=== PATIENT | male | born 1960 | race Caucasian/White ===

== ENCOUNTER 2020-03-18 13:50 | Emergency (ER) | payer OTHER ==
[~2020-03-18] VITALS: Ht 190.5 cm; Wt 99.8 kg
--- OUTSIDE RECORDS SUMMARY | ~2020-03-18 | XMS | Encounter Summary ---
Demographics + + + | Address | [address] | | | [place] [address] | + + + | Home Phone | | + + + | Preferred Language | Unknown | + + + | Marital Status | | + + + | Faith Affiliation | Unknown | + + + | Race | White | + + + | Ethnic Group | Not or | + + + Author + + + | Author | [facility] | | | and [place] | + + + | Organization | [facility] | | | and [place] | + + + | Address | Unknown | + + + | Phone | Unavailable | + + + Support + + +---------+ + | Name | Relationship | Address | Phone | + + +---------+ + | Iman Palafox | ECON | Unknown | | + + +---------+ + Care Team Providers + +------+ + | Care Zigzagger Name | Role | Phone | + +------+ + | Gary Gomez MD | PCP | | + +------+ + Reason for Visit + + + | Reason | Comments | + + + | Cardiac Rehab | | + + + Auth/Cert +--------+--------+ + + + + | Status | Reason | Specialty | Diagnoses / | Referred By | Referred To | | | | | Procedures | Contact | Contact | +--------+--------+ + + + + | | | | | | | +--------+--------+ + + + + Encounter Details +--------+---------+ + + + | Date | Type | Department | Care Team | Description | +--------+---------+ + + + | 03/11/ | Office | [facility] | Latonia Olson, | ST elevation | | 2017 | Visit | [facility] | MD [address] | myocardial | | | | REHABILITATION [address] | [place] | infarction involving | | | | [address] [place] | [address] | right coronary | | | | [place] [address] | | artery (HCC) | | | | [phone] | | | +--------+---------+ + + + Social History + + + +--------+------+ | Tobacco Use | Types | Packs/Day | Years | Date | | | | | Used | | + + + +--------+------+ | Current Some Day | Cigarettes | 0.5 | 10 | | | Smoker | | | | | + + + +--------+------+ + +---+---+---+ | Smokeless Tobacco: | | | | | Never Used | | | | + +---+---+---+ + + | Comments: Trying to quit | + + + + +---------+ + | Alcohol Use | Drinks/Week | oz/Week | Comments | + + +---------+ + | Yes | 0 Standard drinks | 0.0 | rarely | | | or equivalent | | | + + +---------+ + + + + | Sex Assigned at | Date Recorded | | | | + + + | Not on file | | + + + documented as of this encounter Functional Status + + + + | Functional Status | Response | Date of Assessment | + + + + | Are you deaf or do you have serious | No | 11/05/2016 | | difficulty hearing? | | | + + + + | Are you blind or do you have serious | No | 11/05/2016 | | difficulty seeing, even when wearing | | | | glasses? | | | + + + + | Do you have serious difficulty walking or | No | 11/05/2016 | | climbing stairs? (5 years old or older) | | | + + + + | Do you have difficulty dressing or bathing? | No | 11/05/2016 | | (5 years old or older) | | | + + + + | Because of a physical, mental, or emotional | No | 11/05/2016 | | condition, do you have difficulty doing | | | | errands alone such as visiting a doctor's | | | | office or shopping? [15 years old or | | | | older)] | | | + + + + + + + + | Cognitive Status | Response | Date of Assessment | + + + + | Because of a physical, mental, or emotional | No | 11/05/2016 | | condition, do you have serious difficulty | | | | concentrating, remembering, or making | | | | decisions? (5 years old or older) | | | + + + + documented as of this encounter Progress Notes Pricilla Zaldivar RN - 03/11/2017 10:00 AM PDT [facility] [address] [facility] [address] Cardiac Rehab Date: 03/11/2017 Patient Information Patient Name: Jose Raul Palafox Date of : 1960 Age: 56 y.o. Encounter Diagnoses Code Name Primary? 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 Yes Any Changes in Medications? No 01/19/17 gabapentin. Any Problems to Report? No Pain Level: 03/03 leg, T-spine, neck Home exercise: Limited walking due to pain. Denies any adverse symptoms during exercise. No anginal symptoms. Sinus rhythm without ectopy-no ST segment changes. SBP with an adequate rise during exertio n. SpO2 96% on room air. Compliant with medications, Quit Smoking!. Continue monitored exercise. Any abnormal vital signs or rhythm strips will be reported in progress note. Please see vital signs record, exercise record and rhythm strip scanned into media section every . Appointment duration: 60 min Electronically signed by: Pricilla Zaldivar RN, 03/11/2017 11:47 Patient Name: Jose Rual Palafox/: 1960/ signed by Pricilla Zaldivar RN at 03/11/2017 11:55 AM PDTdocumented in this encounter Plan of Treatment + + +--------+ + + | Name | Type | Priori | Associated Diagnoses | Order Schedule | | | | ty | | | + + +--------+ + + | * [facility] | Outpatient | Routin | ST elevation | Ordered: 11/05/2016 | | - AMB Referral | Referral | e | myocardial | | | | | | infarction involving | | | | | | right coronary | | | | | | artery (HCC) | | + + +--------+ + + documented as of this encounter Visit Diagnoses + + | Diagnosis | + + | ST elevation myocardial infarction involving right coronary artery (HCC) Acute | | myocardial infarction of inferoposterior wall, initial episode of care | + + documented in this encounter"
--- OUTSIDE RECORDS SUMMARY | ~2020-03-18 | XMS | Encounter Summary ---
Demographics + + + | Address | [address] | | | [place] [address] | + + + | Home Phone | | + + + | Preferred Language | Unknown | + + + | Marital Status | | + + + | Latter Day Affiliation | Unknown | + + + | Race | White | + + + | Ethnic Group | Not or | + + + Author + + + | Author | [facility] | | | and [place] | + + + | Organization | [facility] | | | and [...] Team Providers + +------+ + | Care Electronics Instructor Name | Role | Phone | + +------+ + | Gary Gomez MD | PCP | | + +------+ + Reason for Visit Auth/Cert +--------+--------+ + + + + | Status | Reason | Specialty | Diagnoses / | Referred By | Referred To | | | | | Procedures | Contact | Contact | +--------+--------+ + + + + | | | | | | | +--------+--------+ + + + + Encounter Details +--------+ + + + + | Date | Type | Department | Care Team | Description | +--------+ + + + + | 11/24/ | Hospital | [facility] | Denton Barakat | Spinal stenosis, | | 2019 | Encounter | MED CTR XRAY [address] | MD Olivier [address] | unspecified spinal | | | | [place] | [place] [address] [address] | region | | | | [place] [address] | [place] [address] | | | | | [phone] | [phone] | | | | | | | | +--------+ + + + + Social History + + [...] + + documented as of this encounter Medications at Time of Discharge + + + +---------+ + + | Medication | Sig | Dispensed | Refills | Start | End Date | | | | | | Date | | + + + +---------+ + + | atorvaSTATin | Take 1 tablet by | 30 | 11 | 11/06/19 | | | (LIPITOR) 80 MG | mouth nightly. Do | tablet | | 17 | | | tablet | not take for a week | | | | | + + + +---------+ + + | famotidine | Take 20 mg by mouth | | 0 | | | | (PEPCID) 20 mg | 2 times daily. | | | | | | tablet | | | | | | + + + +---------+ + + | | Inhale 1 puff into | | 0 | | | | fluticasone-salmeter | the lungs Twice | | | | | | ol (ADVAIR) 500-50 | Daily. | | | | | | mcg/puff diskus | | | | | | | inhaler | | | | | | + + + +---------+ + + | ipratropium | Inhale 2 puffs into | | 0 | | | | (ATROVENT HFA) 17 | the lungs 4 times | | | | | | mcg/puff inhaler | daily. | | | | | + + + +---------+ + + | levalbuterol | Inhale 1 puff into | | 0 | | | | (XOPENEX HFA) 45 | the lungs EVERY 4 TO | | | | | | mcg/puff inhaler | 6 HOURS NEEDED | | | | | | | for Wheezing. | | | | | + + + +---------+ + + | levalbuterol | Take 1 ampule by | | 0 | | | | (XOPENEX) 1.25 mg/3 | nebulization 3 times | | | | | | mL nebulizer | daily. | | | | | | solution | | | | | | + + + +---------+ + + | levothyroxine | Take 175 mcg by | | 0 | | | | (SYNTHROID, | mouth every morning | | | | | | LEVOTHROID) 175 MCG | (before breakfast). | | | | | | tablet | | | | | | + + + +---------+ + + | montelukast | Take 10 mg by mouth | | 0 | | | | (SINGULAIR) 10 mg | Daily. | | | | | | tablet | | | | | | + + + +---------+ + + | nitroglycerin | Place 1 tablet under | 25 | 1 | 11/06/19 | | | (NITROSTAT) 0.4 mg | the tongue every 5 | tablet | | 17 | | | SL tablet | minutes as needed | | | | | | | for Chest pain. | | | | | + + + +---------+ + + | omeprazole | Take 20 mg by mouth | | 0 | | | | (PRILOSEC) 20 mg | 2 times daily. | | | | | | capsule | | | | | | + + + +---------+ + + | oxygen | Inhale 2 L into the | | 0 | | | | | lungs continuous. | | | | | + + + +---------+ + + | prasugrel | Take 1 tablet by | 90 | 3 | 01/12/20 | | | (EFFIENT) 10 mg TABS | mouth Daily. | tablet | | 17 | | + + + +---------+ + + | rOPINIRole | Take 0.5 mg by mouth | | 0 | | | | (REQUIP) 0.5 MG | nightly as needed | | | | | | tablet | (restless leg). | | | | | + + + +---------+ + + | triamcinolone | Apply topically 2 | | 0 | | | | (KENALOG) 0.1% cream | times daily. | | | | | + + + +---------+ + + | aspirin 81 MG EC | Take 1 tablet by | 30 | 0 | 11/06/19 | | | tablet | mouth Daily. | tablet | | 17 | 0 | + + + +---------+ + + | buPROPion | Take 1 tablet by | | 0 | 11/25/19 | | | (WELLBUTRIN SR) 150 | mouth 2 times daily. | | | 19 | 0 | | mg 12 hr tablet | | | | | | + + + +---------+ + + | busPIRone (BUSPAR) | Take 15 mg by mouth | | 0 | | | | 15 mg tablet | 2 times daily. | | | | 0 | + + + +---------+ + + | calcium carbonate | Take 1 tablet by | | 0 | | | | (TUMS) 500 mg | mouth Daily as | | | | 9 | | chewable tablet | needed for | | | | | | | Heartburn. | | | | | + + + +---------+ + + | cyclobenzaprine | Take 10 mg by mouth | | 0 | 11/07/19 | | | (FLEXERIL) 10 mg | Twice daily as | | | 19 | 9 | | tablet | needed. | | | | | + + + +---------+ + + | cyclobenzaprine | Take 10 mg by mouth | | 0 | | | | (FLEXERIL) 10 mg | Twice daily as | | | | 9 | | tablet | needed for Muscle | | | | | | | spasms. | | | | | + + + +---------+ + + | gabapentin | Take 900 mg by mouth | | 0 | | | | (NEURONTIN) 300 mg | 3 times daily. | | | | 0 | | capsule | Three tablets three | | | | | | | times a day | | | | | + + + +---------+ + + | | Take 1-2 tablets by | | 0 | | | | HYDROcodone-acetamin | mouth 3 times daily | | | | 9 | | ophen (NORCO) 5-325 | as needed for Pain. | | | | | | mg per tablet | Max of 4 tabs daily | | | | | + + + +---------+ + + | metoprolol | Take 0.5 tablets by | | 0 | 12/25/19 | | | tartrate (LOPRESSOR) | mouth 2 times daily. | | | 17 | 9 | | 100 mg tablet | | | | | | + + + +---------+ + + | nicotine | Take 4 mg by mouth | | 0 | | | | (NICORETTE) 4 mg gum | as needed for | | | | 9 | | | Nicotine Craving. | | | | | | | Chew and tuck 1 | | | | | | | piece every 1-2 | | | | | | | hours for weeks 1-6 | | | | | | | then every 2-4 hours | | | | | | | for weeks 7-9 then | | | | | | | every 4-8 hours | | | | | | | weeks 10-12 (max 24 | | | | | | | pieces/day). | | | | | + + + +---------+ + + documented as of this encounter Plan of Treatment Not on filedocumented as of this encounter Procedures + +--------+ + + + | Procedure Name | Priori | Date/Time | Associated Diagnosis | Comments | | | ty | | | | + +--------+ + + + | XR LUMBAR SPINE 4 + | Routin | 11/24/2018 | Spinal stenosis, | Results for this | | VW | e | 12:34 PM | unspecified spinal | procedure are in the | | | | PDT | region | results section. | + +--------+ + + + documented in this encounter Results XR Lumbar Spine 4 + Vw (11/24/2018 12:34 PM PDT) + + | Specimen | + + | | + + + + + | Narrative | Performed At | + + + | CLINICAL INFORMATION: Back Pain. COMPARISON: MRI dated | [facility] | | 10/31/2018 and radiographs 02/20/2015. FINDINGS: AP and lateral | | | views of the lumbosacral spine including lateral flexion and | | | extension views. Number of lumbar-type vertebrae: 5 | | | Alignment: Slight retrolisthesis of L1 and L2 (slight worsening during | | | extension) and slight anterolisthesis of L4 (slight worsening during | | | flexion). Mild retrolisthesis of L5 without abnormal translation | | | during dynamic imaging. Vertebral bodies: Normal in height. No | | | vertebral fracture. Disk spaces and facet joints: Mild disc height | | | loss at T12-L1, L1-L2, L2-L3, L3-L4, and L4-L5. Moderate to severe | | | disc height loss at L5-S1 with prominent sclerotic endplate changes. | | | Multilevel facet arthrosis. Soft tissues: Unremarkable. | | | IMPRESSION - Multilevel lumbar spondylosis as detailed above, most | | | notable at L5-S1. Spondylolisthesis at L1, L2, L4, and L5 with | | | minimal abnormal translation at L1, L2, and L4 during dynamic | | | imaging. Dictated and Signed by: Marcelino Hernandez MD | | | Electronically signed: 11/24/2018 3:29 PM | | + + + + + | Procedure Note | + + | [facility], Rad Results In - 11/24/2018 3:32 PM PDT | | CLINICAL INFORMATION: Back Pain. | | | | COMPARISON: MRI dated 10/31/2018 and radiographs 02/20/2015. | | | | FINDINGS: | | AP and lateral views of the lumbosacral spine including lateral flexion and | | extension views. | | | | Number of lumbar-type vertebrae: 5 | | | | Alignment: Slight retrolisthesis of L1 and L2 (slight worsening during | | extension) and slight anterolisthesis of L4 (slight worsening during flexion). | | Mild retrolisthesis of L5 without abnormal translation during dynamic imaging. | | | | Vertebral bodies: Normal in height. No vertebral fracture. | | | | Disk spaces and facet joints: Mild disc height loss at T12-L1, L1-L2, L2-L3, | | L3-L4, and L4-L5. Moderate to severe disc height loss at L5-S1 with prominent | | sclerotic endplate changes. Multilevel facet arthrosis. | | | | Soft tissues: Unremarkable. | | | | | | IMPRESSION - | | Multilevel lumbar spondylosis as detailed above, most notable at L5-S1. | | | | Spondylolisthesis at L1, L2, L4, and L5 with minimal abnormal translation at L1, | | L2, and L4 during dynamic imaging. | | | | Dictated and Signed by: Marcelino Hernandez MD | | Electronically signed: 11/24/2018 3:29 PM | + + + +---------+ + + | Performing | Address | City/State/Zipcode | Phone Number | | Organization | | | | + +---------+ + + | [facility] | | | | + +---------+ + + documented in this encounter Visit Diagnoses + + | Diagnosis | + + | Spinal stenosis, unspecified spinal region | + + documented in this encounter"
--- OUTSIDE RECORDS SUMMARY | ~2020-03-18 | XMS | Encounter Summary ---
Demographics + + + | Address | [address] | | | [place] [address] | + + + | Home Phone | | + + + | Preferred Language | Unknown | + + + | Marital Status | | + + + | Judaism Affiliation | Unknown | + + + | Race | White | + + + | Ethnic Group | Not or | + + + Author + + + | Author | [facility] | | | and [place] | + + + | Organization | [facility] | | | and [...] Team Providers + +------+ + | Care Radio Survey Worker Name | Role | Phone | + +------+ + | Gary Gomez MD | PCP | | + +------+ + Reason for Visit +--------+--------+ + | Reason | Onset | Comments | | | Date | | +--------+--------+ + | Pain | 11/27/ | | | | 2015 | | +--------+--------+ + Encounter Details +--------+ + + + + | Date | Type | Department | Care Team | Description | +--------+ + + + + | 11/27/ | Telephone | [facility] | Aleksander Stern, | Pain | | 2016 | | NEUROSURGERY [address] | DO [address] | | | | | [address] | [address] [place], [place] | | | | | [place], [place] | [address] | | | | | [address] | | | | | | [phone] | | | +--------+ + + + + Social History + +-------+ +--------+------+ | Tobacco Use | Types | Packs/Day | Years | Date | | | | | Used | | + +-------+ +--------+------+ | Current Some Day | | 0.3 | 10 | | | Smoker | | | | | + +-------+ +--------+------+ + +---+---+ + | Smokeless Tobacco: | | | Quit: | | Former User | | | 05/08/20 | | | | | 14 | + +---+---+ + + + +---------+ + | Alcohol [...] do you have serious | No | 01/11/2015 | | difficulty hearing? | | | + + + + | Are you blind or do you have serious | No | 01/11/2015 | | difficulty seeing, even when wearing | | | | glasses? | | | + + + + | Do you have serious difficulty walking or | No | 01/11/2015 | | climbing stairs? (5 years old or older) | | | + + + + | Do you have difficulty dressing or bathing? | No | 01/11/2015 | | (5 years old or older) | | | + + + + | Because of a physical, mental, or emotional | No | 01/11/2015 | | condition, do you have difficulty [...] physical, mental, or emotional | No | 01/11/2015 | | condition, do you have serious difficulty | | | | concentrating, remembering, or making | | | | decisions? (5 years old or older) | | | + + + + documented as of this encounter Miscellaneous Notes Telephone Encounter - Osborne, Bhargavi J, RN - 12/01/2015 4:39 PM PDTCalled Jose Raul and advise d him per Dr. Stern. He was scheduled to see Cecil Hensley PA-C on 01/05/16 at 1400. elephone Encounter - Aleksander Stern DO - 03/2016 3:52 PM PDTThe x-rays look excellent. Let's have him come in and see Cecil who could order an MRI if indicated. Thanks. elephone Enco unter - Bhargavi Osborne RN - 12/01/2015 2:32 PM PDTS/P C3-T2 Fusion on 01/07/15 Cervical xrays available for review on [facility]. elephone Encounter - Jacob Martin - 12/01/2015 2:[facility] PM [facility] let [facility] office know they sent over results and images for patient. Elect ronically signed by Jacob Martin at 12/01/2015 2:06 PM PDTTelephone Encounter - Bhargavi Osborne RN - 12/01/2015 1:56 PM PDTCalled and requested Cervical imaging from [facility]. Electr onically signed by Bhargavi Osborne RN at 12/01/2015 1:57 PM PDTTelephone Encounter - Jacob Dunlap - 12/01/2015 1:20 PM PDTPatient called, he completed the cervical xray at [facility] t cody. elephone Encounter - Bhargavi Osborne RN - 12/01/2015 9:56 AM PDTCalled Jose Raul and advised him per Dr. Stern . He stated that he went to the ED and received pain medication. He would like our office to send over these recent telephone encounters over to Dr. Gomez's office. I will look into th is. Cervical xray order faxed via [facility] to [facility], he will call us back once completed. elephone Encounter - Aleksander Stern DO - 11/28/2015 3:17 PM PDTI would like him to start with AP and lateral x-rays of the cervical spine. I will review them. In the meantime, he should get pain medic ation from his PCP. Thanks. elephone Enco unter - Bhargavi Osborne RN - 11/28/2015 10:34 AM PDTPost-op patient: Yes". Type of Procedure: C3-T2 Fusion Date of Procedure: 01/07/15 Next Office Visit: No future appointments Reason for call: "A rib out of place, same place as my surgery". Type of pain: Constant, sharp, burning, aching, throbbing Location of Pain: Starts in the center of his back and radiates to "the front of my rib ca ge, up to my neck, and down both my arms". Pain Level: 12 New Pain: No. This pain has been there since his fall 2 months after surgery. When did pain start to increase or change: One week ago Worse with activity: Yes. Sudden onset of Lower or Upper extremity weakness: Yes, for the past month, Upper extremi ty weakness. "Right arm". Current intake of pain medication/or muscle relaxants: Hydrocodone 5/325 (x6 tabs daily), Cyclobenzaprine. He stated that he took his 's Methocarbamol and that worked better, he was advised to call his PCP regarding medications, he verbalized understanding. He states that he has difficulty breathing in, it causes a sharp stabbing pain. "I feel thi s is associated with my surgery". "The pain is unbearable". He was advised to seek immediate medical attention, he verbalized understanding. Please advise further. documented in this e ncounter Plan of Treatment Not on filedocumented as of this encounter Visit Diagnoses Not on filedocumented in this encounter
--- OUTSIDE RECORDS SUMMARY | ~2020-03-18 | XMS | Encounter Summary ---
Demographics + + + | Address | [address] | | | [place] [address] | + + + | Home Phone | | + + + | Preferred Language | Unknown | + + + | Marital Status | | + + + | Mu-Ism Affiliation | Unknown | + + + | Race | White | + + + | Ethnic Group | Not or | + + + Author + + + | Author | [facility] | | | and [place] | + + + | Organization | [facility] | | | and [place] | + + + | Address | Unknown | + + + | Phone | Unavailable | + + + Support + + +---------+ + | Name | Relationship | Address | Phone | + + +---------+ + | Quincy Maldonado | ECON | Unknown | | + + +---------+ + Care Team Providers + +------+ + | Care Automotive Vehicle Inspector Name | Role | Phone | + +------+ + | Gary Gomez MD | PCP | | + +------+ + Reason for Visit + + + | Reason | Comments | + + + | Follow-up | | + + + Evaluate & Treat (Routine) +--------+--------+ + + + + | Status | Reason | Specialty | Diagnoses / | Referred By | Referred To | | | | | Procedures | Contact | Contact | +--------+--------+ + + + + | Closed | | Cardiology | Diagnoses | Gomez, | Senia, | | | | | Encounter | Jungwmyrna | Geovanny | | | | | for | MD Garry | MD Dean | | | | | preprocedura | [address] | | | | | l | [address] | [address] [place] | | | | | cardiovascul | [address] [place] | [place], [place] | | | | | ar | [place], [place] | [address] Phone: | | | | | examination | [phone] | [phone] | | | | | ST | Phone: | Fax: | | | | | elevation | [phone] | [phone] | | | | | (STEMI) | Fax: | | | | | | myocardial | [phone] | | | | | | infarction | | | | | | | involving | | | | | | | other | | | | | | | coronary | | | | | | | artery of | | | | | | | inferior | | | | | | | wall (HCC) | | | | | | | Procedures | | | | | | | CARDIAC | | | | | | | CLEARANCE | | | | | | | [facility] | | | +--------+--------+ + + + + Encounter Details +--------+---------+ + + + | Date | Type | Department | Care Team | Description | +--------+---------+ + + + | 02/07/ | Office | [facility] | Geovanny Conn | NSTEMI, initial | | 2019 | Visit | CARDIOLOGY [address] | MD [address] | episode of care | | | | [address], | [address] [place] | ([facility]) (Primary Dx); | | | | [place] [address] | [place] [address] | Postmyocardial | | | | [phone] | [phone] | infarction syndrome | | | | | | ([facility]); Unstable | | | | | | angina ([facility]); CAD in | | | | | | chitina artery; | | | | | | Benign essential | | | | | | hypertension; Mixed | | | | | | hyperlipidemia; | | | | | | Tobacco user; ST | | | | | | elevation myocardial | | | | | | infarction | | | | | | involving right | | | | | | coronary artery | | | | | | ([facility]) | +--------+---------+ + + + Social History + + + +--------+ + | Tobacco Use | Types | Packs/Day | Years | Date | | | | | Used | | + + + +--------+ + | Former Smoker | Cigarettes | 0.5 | 10 | Quit: 01/15/2019 | + + + +--------+ + + +---+---+---+ | Smokeless Tobacco: | | | | | Never Used | | | | + +---+---+---+ + + | Comments: Trying to quit | + + + + +---------+ + | Alcohol Use | Drinks/Week | oz/Week | Comments | + + +---------+ + | Yes | 0 Standard drinks | 0.0 | 3-4 drinks a week | | | or equivalent | | | + + +---------+ + + + + | Sex Assigned at | Date Recorded | | | | + + + | Not on file | | + + + documented as of this encounter Last Filed Vital Signs + + + + + | Vital Sign | Reading | Time Taken | Comments | + + + + + | Blood Pressure | 158/102 | 02/07/2019 2:56 PM | | | | | PDT | | + + + + + | Pulse | 112 | 02/07/2019 2:56 PM | | | | | PDT | | + + + + + | Temperature | - | - | | + + + + + | Respiratory Rate | 24 | 02/07/2019 2:56 PM | | | | | PDT | | + + + + + | Oxygen Saturation | - | - | | + + + + + | Inhaled Oxygen | - | - | | | Concentration | | | | + + + + + | Weight | 99.4 kg (219 lb 2.2 | 02/07/2019 2:56 PM | | | | oz) | PDT | | + + + + + | Height | 188 cm (6' 2") | 02/07/2019 2:56 PM | | | | | PDT | | + + + + + | Body Mass Index | 28.14 | 02/07/2019 2:56 PM | | | | | PDT | | + + + + + documented in this encounter Functional Status + + + [...] documented as of this encounter Progress Notes Geovanny Conn MD - 02/07/2019 3:00 PM PDTFormatting of this note might be differe nt from the original. PATIENT NAME: Jose Raul Maldonado : 1960: AGE: 58 y.o. REFERRED BY: Geovanny Conn PRIMARY CARE: Tommy Gomez MD CARDIOLOGY OFFICE VISIT Date of Service: 02/07/19 HISTORY OF PRESENT ILLNESS: Jose Raul Maldonado, "Bill", is a 58 y.o. male with history of inferior STEMI 2017 s/p RENETTA of RCA, followed by repeat revascularization of PDA, tobacco use, COPD, and dyslipidemia pre sents today for follow up prior to upcoming surgery in early February. [facility] He has previously presented for pre-op last year on 04/06/18, but states that he never under went surgery and instead opted for injection therapy. He denies any changes in his cardiac symptomology since this time. He describes occasional sharp chest discomfort q 2-3 months, typically while sitting. He denies any exertional complaints. He is moderately active, and describes building rails on the porch today without any chest pain or shortness of breath. He has denies any dyspnea on exertion, stating that he feels better than he has in a long t rosetta, especially since he and his have quit smoking 1 mo ago. He was previously smoking 2 packs per day. He uses oxygen daily due to COPD. He denies problems such as orthopnea, PND, lower extremity edema, palpitations, lightheaded ness, syncope, and has no new constitutional symptoms. Patient has had chronic back pain and, after injection therapy, is in need of surgery. He has a history of C3-7 anterior fusion December 2014 and at that time he was discharged on home o xygen therapy which persists. Pertinent historical information: He initially presented with an inferior STEMI in October 2016, receiving drug-eluting stents to the RCA after presenting with 100% occlusion. He underwent stress perfusion imaging stud y in November 2016 which revealed continued inferior ischemia and underwent repeat PCI of the PDA . Since then he has been mostly chest pain-free. He occasionally experiences a sudden macho p episode of chest discomfort which is self-limiting and without clear exertional correlatio n. . MEDICAL, SURGICAL, AND PERSONAL HISTORY Past Medical History: Diagnosis Date Acute bronchitis Acute upper respiratory infection, unspecified Allergic rhinitis, unspecified Anxiety Asthma CAD in chitina artery Cervical radiculopathy at C6 Right on EMG/NCS in 01/04 Chronic bronchitis with COPD (chronic obstructive pulmonary disease) (HCC) Chronic low back pain Chronic neck pain COPD (chronic obstructive pulmonary disease) (HCC) Diverticulitis Emphysema of lung (HCC) Gastroenteritis Headache Hepatitis C Hernia, hiatal History of drug use IV drug use prior to 2005 History of tobacco use Hyperlipidemia Hypertension Hypothyroidism Lumbar radiculopathy Migraine Muscle spasm Neck pain Neuropathy Other cervical disc displacement, unspecified cervical region Peptic ulcer disease Restless leg syndrome Spondylosis without myelopathy or radiculopathy, site unspecified Thoracic radiculopathy 08/17/2016 Thyroid disease Thyroid disease Tobacco use Past Surgical History: Procedure Laterality Date CARDIAC CATHERIZATION N/A 11/03/2016 Procedure: CV Cor Angio; Surgeon: Latonia Olson MD; Location: [facility] CV LAB CARDIAC CATHERIZATION N/A 11/03/2016 Procedure: CV Cor Angio; Surgeon: Latonia Olson MD; Location: [facility] CV LAB CARDIAC CATHERIZATION N/A 12/23/2016 Procedure: CV LHC; Surgeon: Latonia Olson MD; Location: [facility] CV LAB CERVICAL SPINE SURGERY N/A 01/07/2015 Procedure: C3-4, C4-5, C5-6, C6-7, Anterior Cervical Discectomy w/ Fusion and Plating, Pos terior Fusion at C3-4, C4-5, C5-6, C6-7, C7-T1, and T1-2; Surgeon: Aleksander Stern DO; Loc ation: [facility] MAIN OR CHOLECYSTECTOMY 2010 Dr. Skaggs FINGER FRACTURE SURGERY Left 2003 middle finger crush injury; tip replacement FINGER SURGERY Left 1986 thumb attachment KNEE ARTHROSCOPY Right ROTATOR CUFF REPAIR Left 1995 ULNAR TUNNEL RELEASE Left 1995 Family History Problem Relation Age of Onset Heart disease Father Asthma Father Emphysema Father Thyroid disease Father goiter Arthritis Father Heart failure Father Diabetes Father Adult onset Heart disease Mother Diabetes Mother Adult onset Arthritis Mother Bleeding problems Mother Gout Mother Hypertension Mother Heart failure Mother Other (see comment) Mother lung prob Coronary artery disease Mother Arthritis Paternal Grandfather Arthritis Paternal Grandmother Hypertension Maternal Grandfather Diabetes Maternal Grandfather Heart attack Maternal Grandfather 55 Hypertension Maternal Grandmother Seizures Paternal Aunt Hypertension Paternal Aunt Diabetes Paternal Aunt Early Paternal Aunt 19 Hypertension Maternal Uncle Alcohol abuse Maternal Uncle Heart disease Maternal Uncle Heart attack Maternal Uncle Crohn's disease Sister Other (see comment) Sister lung prob Crohn's disease Sister Heart disease Sister Asthma Sister Allergic rhinitis Sister Thyroid disease Sister Sleep apnea Sister Diabetes Sister Elevated lipids Sister Hypertension Sister Other (see comment) Sister seasonal affective disorder Liver disease Sister PTSD Sister Other (see comment) Sister sjorgren's syndrome,Diverticulosis,Myasthenia Gravis GERD Sister Heart failure Sister Asthma Sister Heart failure Maternal Aunt No known problems Child No known problems Child Heart attack Brother Heart attack Brother Family Status Relation Name Status Father at age 59 Mother at age 76 Child Alive Child Alive PGF at age 86 PGM at age 90 MGF at age 55 MGM PAunt at age 19 MUnc Sister (Not Specified) Sister Alive Sister Alive Sister MAphoebe Child (Not Specified) Child (Not Specified) Brother (Not Specified) Brother (Not Specified) Social History Socioeconomic History Marital status: Spouse name: QUINCY MALDONADO Number of children: 4 Years of education: GED Highest education level: Not on file Occupational History 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 Sexual activity: Never CURRENT MEDICATIONS Current Outpatient Medications Medication Sig Dispense Refill aspirin 81 MG EC tablet Take 1 tablet by mouth Daily. 30 tablet atorvaSTATin (LIPITOR) 80 MG tablet Take 1 tablet by mouth nightly. Do not take for a w kaltag 30 tablet 11 buPROPion (WELLBUTRIN SR) 150 mg 12 hr tablet Take 1 tablet by mouth 2 times daily. busPIRone (BUSPAR) 15 mg tablet Take 15 mg by mouth 2 times daily. cyclobenzaprine (FLEXERIL) 10 mg tablet Take 10 mg by mouth Twice daily as needed. DULoxetine (CYMBALTA) [address] capsule Take 60 mg by mouth nightly. famotidine (PEPCID) 20 mg tablet Take 20 mg by mouth 2 times daily. fluticasone-salmeterol (ADVAIR) 500-50 mcg/puff diskus inhaler Inhale 1 puff into the l ungs Twice Daily. gabapentin (NEURONTIN) 300 mg capsule Take 900 mg by mouth 3 times daily. Three tablets three times a day guaiFENesin (MUCINEX) 600 mg 12 hr tablet Take 600 mg by mouth 2 times daily. HYDROcodone-acetaminophen (NORCO) 5-325 mg per tablet Take 1-2 tablets by mouth 3 times daily as needed for Pain. Max of 4 tabs daily ipratropium (ATROVENT HFA) 17 mcg/puff inhaler Inhale 2 puffs into the lungs 4 times da adrian. isosorbide mononitrate 60 mg ER tablet Take 30 mg by mouth every morning. levalbuterol (XOPENEX HFA) 45 mcg/puff inhaler Inhale 1 puff into the lungs EVERY 4 TO 6 HOURS NEEDED for Wheezing. levalbuterol (XOPENEX) 1.25 mg/3 mL nebulizer solution Take 1 ampule by nebulization 3 times daily. levothyroxine (SYNTHROID, LEVOTHROID) 175 MCG tablet Take 175 mcg by mouth every mornin g (before breakfast). medical marijuana (CANNABIS) as needed (to sleep). metoprolol tartrate (LOPRESSOR) 100 mg tablet Take 0.5 tablets by mouth 2 times daily. montelukast (SINGULAIR) 10 mg tablet Take 10 mg by mouth Daily. nitroglycerin (NITROSTAT) 0.[address] 1 tablet under the tongue every 5 jennifer frieda as needed for Chest pain. 25 tablet 1 omeprazole (PRILOSEC) 20 mg capsule Take 20 mg by mouth 2 times daily. oxygen Inhale 2 L into the lungs continuous. prasugrel (EFFIENT) 10 mg TABS Take 1 tablet by mouth Daily. 90 tablet 3 rOPINIRole (REQUIP) 0.5 MG tablet Take 0.5 mg by mouth nightly as needed (restless leg) . triamcinolone (KENALOG) 0.1% cream Apply topically 2 times daily. No current facility-administered medications for this visit. ALLERGIES Allergies Allergen Reactions Doxycycline Anaphylaxis, Nausea Only, Dermatitis and Headache Throat swelling HTN Adhesive & Tape Rash Albuterol Anxiety Caused severe anxiety. Aspirin Other (See Comments) Ulceration of stomach Latex Itching and Rash ROS I have reviewed the Review of Systems form dated today and scanned into the media tab. OBJECTIVE: PHYSICAL EXAM BP (!) 158/102 | Pulse 112 | Resp 24 | Ht 1.88 m (6' 2") | Wt 99.4 kg (219 lb 2.2 oz) | BMI 28.14 kg/m Physical Exam Constitutional: He is oriented to person, place, and time. He appears well-developed and we ll-nourished. Neck: Normal carotid pulses and no JVD present. Carotid bruit is not present. Cardiovascular: Normal rate, regular rhythm, S1 normal, S2 normal, normal heart sounds and intact distal pulses. PMI is not displaced. Exam reveals no gallop and no friction rub. No murmur heard. Pulses: Carotid pulses are 2+ on the right side, and 2+ on the left side. Posterior tibial pulses are 2+ on the right side, and 2+ on the left side. Pulmonary/Chest: Effort normal and breath sounds normal. No accessory muscle usage. No resp iratory distress. He has no wheezes. He has no rhonchi. He has no rales. Abdominal: Soft. Normal appearance and normal aorta. He exhibits no abdominal bruit. There is no hepatosplenomegaly. There is no tenderness. Musculoskeletal: He exhibits no edema. Neurological: He is alert and oriented to person, place, and time. Gait normal. Skin: Skin is warm and dry. No cyanosis. Nails show no clubbing. Psychiatric: He has a normal mood and affect. His mood appears not anxious. He does not exh ibit a depressed mood. ECG: Reviewed by me 02/07/2019 shows sinus tachycardia with HR of 114, otherwise normal ECG . Previous tracing showed normal EKG, normal sinus rhythm, unchanged from previous tracings. Heart rate: 71 LAB RESULTS: LIPID Lab Results Component Value Date CHOL 179 11/04/2016 TRIG 197 (H) 11/04/2016 HDL 34 11/04/2016 LDL 106 11/04/2016 CHOLHDL 5.3 11/04/2016 LDL [facility] 73 (2017) CHEMISTRY Lab Results Component Value Date GLU 121 (H) 11/04/2016 NA 141 11/04/2016 K 4.1 11/04/2016 CL 109 11/04/2016 CO2 25 11/04/2016 CALCIUM 9.0 11/04/2016 ALKPHOS 79 11/03/2016 AST 18 11/03/2016 ALT 25 11/03/2016 BILITOT 0.7 11/03/2016 CREA 0.81 11/04/2016 BUN 12 11/04/2016 HEMATOLOGY Lab Results Component Value Date WBC 12.5 (H) 11/03/2016 HGB 16.1 11/03/2016 HCT 47 11/03/2016 PLT 315 11/03/2016 BNP No results found for: BNP A1C : Not in our Medical Record DIAGNOSTIC STUDIES: I reviewed records from PCP for office visit on 02/13/2018. Left heart catheterization and coronary angiography October 2016 results reviewed by me with the patient today notable for inferior STEMI treated with implantation of 2 drug-eluting edward nts to the RCA was 100% occluded with mild LAD disease as well as mild disease of the nondom inant LCx with preserved LV systolic function and mild inferior hypokinesis. Post stent IVU S. Nuclear stress test 12/16/2016: Persantine EKG is negative. Abnormal Persantine Sestamibi myocardial perfusion study with a medium-sized, fixed defect of a moderate severity of the m id inferior and distal inferior and apex. This suggests a potential myocardial scar of the r ight coronary artery territories. Although, inferior wall soft tissue attenuation cannot be completely ruled out. Gated SPECT reveals a normal left ventricular wall thickness and patricia on. Preserved left ventricular systolic function. LVEF by gated SPECT is 56 %. Left heart catheterization and coronary angiography December 2016 results reviewed by me with t eriberto patient today notable for PCI of the PDA. ASSESSMENT/PLAN: 1. CAD/preoperative assessment - patient's initial presentation dates back to October 2016 w hanh he first presented with inferior STEMI and underwent urgent PCI of the RCA with drug-elu ting stents. After persistence of symptoms, he underwent a nuclear stress imaging study whi demonstrated continued inferior ischemia and he underwent repeat PCI of the PDA in December 24. Since then he has done well without any exertional symptoms and continued occasional a typical complaints of sharp chest discomfort at rest. His risk factor profile has been sign ificantly modified with good lipid control. Most importantly, he recently quit smoking. Th ere is no indication for further cardiovascular diagnostics and he may proceed with his elec tive surgery. His Effient may be held perioperatively and should be resumed when feasible p ostoperatively. Otherwise focus will remain on continued medical therapy and risk factor re duction. At some point in the future he may benefit from an echocardiogram to reassess his LV systolic function. He will benefit from up titration of his beta fabian regimen, especially given mild tachyc ardia noted today. -No further cardiovascular diagnostics. -Proceed with elective surgery. -May hold Effient perioperatively and resume thereafter. -Up titrate beta fabian regimen. 2. HTN - patients blood pressure is notably high today, including mild tachycardia. Has b een taking metoprolol tartrate 50mg BID. Will increase to 100mg twice daily, which should b ring his blood pressure within normal limits. His blood pressure may be monitored amy-oper atively. - Increase metoprolol to 100mg BID 2. Dyslipidemia - stable. Recommend continue atorvastatin. We once again discussed lifes tyle and dietary modification, and encouraged exercise increase as tolerated. Recommend fast ing lipid panel prior to next office visit in 1 yr. 3. Tobacco cessation - resolved - Patient has quit smoking for approximately one month now , and intends to stay that way. I congratulated him and this will benefit from future reinf orcement. Portions of this report were transcribed using voice recognition software. Every effort wa s made to ensure accuracy; however, inadvertent computerized sales representative health insurance errors may be pre sent. Electronically signed by: Ehsan Conn MD PhD [facility] 02/07/2019 IBrianda PA-C, am acting as a scribe on behalf of, and in the presence of Ehsan Conn MD. I, Ehsan Conn MD, personally performed the services described in this documentation, as scribed in my presence and it is both accurate and complete. Ehsan Conn MD [facility] 02/07/2019 16:47 documented in t his encounter Plan of Treatment Not on filedocumented as of this encounter Procedures + +--------+ + + + | Procedure Name | Priori | Date/Time | Associated Diagnosis | Comments | | | ty | | | | + +--------+ + + + | ECG 12 LEAD | Routin | 02/07/2019 | CAD in chitina | Results for this | | | e | 2:59 PM | artery Benign | procedure are in the | | | | PDT | essential | results section. | | | | | hypertension | | + +--------+ + + + documented in this encounter Results ECG 12 lead (02/07/2019 2:59 PM PDT) + + + + + + | Component | Value | Ref Range | Performed | Pathologist | | | | | At | Signature | + + + + + + | VENTRICULAR | 114 | BPM | [facility] | | | RATE EKG | | | | | + + + + + + | ATRIAL RATE | 114 | BPM | [facility] | | + + + + + + | P-R | 140 | ms | [facility] | | | INTERVAL | | | | | + + + + + + | QRS | 96 | ms | [facility] | | | DURATION | | | | | + + + + + + | Q-T | 358 | ms | [facility] | | | INTERVAL | | | | | + + + + + + | Q-T | 493 | ms | [facility] | | | INTERVAL | | | | | | (CORRECTED) | | | | | + + + + + + | P WAVE AXIS | 69 | degrees | [facility] | | + + + + + + | QRS AXIS | 13 | degrees | [facility] | | + + + + + + | T AXIS | 30 | degrees | [facility] | | + + + + + + | INTERPRETAT | Sinus | | [facility] | | | ION TEXT | tachycardiaOtherwise | | | | | | normal ECGWhen compared | | | | | | with ECG of 06-APR-2018 | | | | | | 11:42,Vent. rate has | | | | | | increased BY 43 | | | | | | BPMConfirmed by SENIA | | | | | | DEAN WESTBROOK ([id number]) on | | | | | | 02/09/2019 4:28:03 PM | | | | + + + + + + + + | Specimen | + + | | + + + + + | Narrative | Performed At | + + + | | | + + + + +---------+ + + | Performing | Address | City/State/Zipcode | Phone Number | | Organization | | | | + +---------+ + + | [facility] | | | | + +---------+ + + documented in this encounter Visit Diagnoses + + | Diagnosis | + + | NSTEMI, initial episode of care (HCC) - Primary Acute myocardial infarction, | | subendocardial infarction, initial episode of care | + + | 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 | + + | Unstable angina (HCC) Intermediate coronary syndrome | + + | CAD in chitina artery Coronary atherosclerosis of chitina coronary artery | + + | Benign essential hypertension Essential hypertension, benign | + + | Mixed hyperlipidemia | + + | Tobacco user Tobacco use disorder | + + | ST elevation myocardial infarction involving right coronary artery (HCC) Acute | | myocardial infarction of inferoposterior wall, initial episode of care | + + documented in this encounter
--- OUTSIDE RECORDS SUMMARY | ~2020-03-18 | XMS | Encounter Summary ---
Demographics + + + | Address | [address] | | | [place] [address] | + + + | Home Phone | | + + + | Preferred Language | Unknown | + + + | Marital Status | | + + + | Bahai Affiliation | Unknown | + + + | Race | White | + + + | Ethnic Group | Not or | + + + Author + + + | Author | [facility] | | | and [place] | + + + | Organization | [facility] | | | [...] Team Providers + +------+ + | Care Records Section Supervisor Name | Role | Phone | + +------+ + | Gary Gomez MD | PCP | | + +------+ + Reason for Visit Diagnostic/Screening (Routine) +--------+--------+ + + + + | Status | Reason | Specialty | Diagnoses / | Referred By | Referred To | | | | | Procedures | Contact | Contact | +--------+--------+ + + + + | Closed | | Radiology | Diagnoses | Whitney, | [facility] Nuclear | | | | | Chest pain, | Latonia Jewell MD | Medicine | | | | | unspecified | [address] | [address] | | | | | type | [address] [place] | [place], | | | | | Procedures | [place], [place] | [place] | | | | | [place] | [id number] | [address] | | | | | Stress Test | Phone: | Phone: | | | | | (Vasodilator | [phone] | [phone] | | | | | ) CHG | Fax: | Fax: | | | | | MYOCARDIAL | [phone] | [phone] | | | | | SPECT | | | | | | | MULTIPLE | | | | | | | STUDIES MI | | | | | | | CV STRS TST | | | | | | | XERS&/OR RX | | | | | | | CONT ECG W/O | | | | | | | I&R MI | | | | | | | CARDIAC | | | | | | | STRESS | | | | | | | TST,INTERP/R | | | | | | | EPT ONLY | | | +--------+--------+ + + + + Encounter Details +--------+ + + + + | Date | Type | Department | Care Team | Description | +--------+ + + + + | 05/25/ | Hospital | [facility] | Latonia Olson, | | | 2017 | Encounter | MED CTR NUCLEAR | MD [address] | | | | | MEDICINE [address] | [place], [place] | | | | | [address] [place], | [address] | | | | | [place] [address] | | | | | | [phone] | | | +--------+ + + + [...] + + + +---------+ + + | colchicine 0.6 mg | Take 1 tablet by | 14 | 0 | 11/06/19 | | | tablet | mouth 2 times daily. | tablet | | 17 | 7 | + + + +---------+ + + [...] +---------+ + + | gabapentin | Take 2 capsules by | 180 | 2 | 11/06/19 | | | (NEURONTIN) 300 mg | mouth 3 times daily. | capsule | | 17 | 7 | | capsule | | | | [...] +---------+ + + | metoprolol | Take 1 tablet by | 60 | 11 | 11/06/19 | | | tartrate (LOPRESSOR) | mouth 2 times daily. | tablet | | 17 | 7 | | 100 mg tablet | | | | | | + + + +---------+ + + | ticagrelor | Take 1 tablet by | 60 | 1 | 11/06/19 | | | (BRILINTA) 90 mg | mouth 2 times daily. | tablet | | 17 | 7 | | tablet | | | | | | + + + +---------+ + + documented as of this encounter Plan of Treatment Not on filedocumented as of this encounter Procedures + +--------+ + + + | Procedure Name | Priori | Date/Time | Associated Diagnosis | Comments | | | ty | | | | + +--------+ + + + | [place] NUCLEAR STRESS | Routin | 12/16/2016 | Chest pain, | Results for this | | TEST (PHARMACOLOGIC | e | 2:56 PM | unspecified type | procedure are in the | | - VASODILATOR) | | PDT | | results section. | + +--------+ + + + documented in this encounter Visit Diagnoses Not on filedocumented in this encounter Administered Medications + +--------+ + +------+------+ | Medication Order | MAR | Action | Dose | Rate | Site | | | Action | Date | | | | + +--------+ + +------+------+ | technetium TC-[id number] sestamibi | Given | 12/17/19 | 30 | | | | (CARDIOLITE) injection | | 17 2:44 | -millicu | | | | millicurie 30 -millicurie, | | PM PDT | william | | | | Intravenous, ONCE PRN, Other, | | | | | | | Starting Joceline 12/16/16 at 1444, For | | | | | | | 1 dose, Nuclear Medicine | | | | | | + +--------+ + +------+------+ +---+---+ | | | +---+---+ documented in this encounter"
--- OUTSIDE RECORDS SUMMARY | ~2020-03-18 | XMS | Encounter Summary ---
Demographics + + + | Address | [address] | | | [place] [address] | + + + | Home Phone | | + + + | Preferred Language | Unknown | + + + | Marital Status | | + + + | Pentecostal Affiliation | Unknown | + + + | Race | White | + + + | Ethnic Group | Not or | + + + Author + + + | Author | [facility] | | | and [place] | + + + | Organization | [facility] | | | [...] Team Providers + +------+ + | Care Systems Integrator Name | Role | Phone | + +------+ + | Gary Gomez MD | PCP | | + +------+ + Encounter Details +--------+ + + + + | Date | Type | Department | Care Team | Description | +--------+ + + + + | 08/07/ | Abstract | [facility] | Hussein Padron | | | 2016 | | PHYSIATRY [address] | TMD [address] | | | | | [address] | [place] | | | | | [place] | [address] | | | | | [address] | | | | | | [phone] | | | +--------+ + + + [...] Visit Diagnoses Not on filedocumented in this encounter"
--- OUTSIDE RECORDS SUMMARY | ~2020-03-18 | XMS | Encounter Summary ---
Demographics + + + | Address | [address] | | | [place] [address] | + + + | Home Phone | | + + + | Preferred Language | Unknown | + + + | Marital Status | | + + + | Mormonism Affiliation | Unknown | + + + [...] Team Providers + +------+ + | Care Commercial Roofing Estimator Name | Role | Phone | + +------+ + | Gary Gomez MD | PCP | | + +------+ + Reason for Visit + + + | Reason | Comments | + + + | Follow-up | Post op | + + + Encounter Details +--------+---------+ + + + | Date | Type | Department | Care Team | Description | +--------+---------+ + + + | 04/18/ | Office | [facility] | Aleksander Stern, | Cervical spondylosis | | 2014 | Visit | NEUROSURGERY [address] | DO [address] | (Primary Dx); S/P | | | | [address] | [address] [place], [place] | cervical spinal | | | | [place], [place] | [address] | fusion | | | | [address] | | | | | | [phone] | | | +--------+---------+ + + + Social History + +-------+ [...] + + + | Blood Pressure | 143/95 | 04/18/2015 8:19 AM | | | | | PDT | | + + + + + | Pulse | 84 | 04/18/2015 8:19 AM | | | | | PDT | | + + + + + | Temperature | - | - | | + + + + + | Respiratory Rate | 18 | 04/18/2015 8:19 AM | | | | | PDT | | + + + + + | Oxygen Saturation | - | - | | + + + + + | Inhaled Oxygen | - | - | | | Concentration | | | | + + + + + | Weight | 105.2 kg (232 lb) | 04/18/2015 8:19 AM | | | | | PDT | | + + + + + | Height | 188 cm (6' 2") | 04/18/2015 8:19 AM | | | | | PDT | | + + + + + | Body Mass Index | 29.79 | 04/18/2015 8:19 AM | | | | | PDT | [...] + + documented as of this encounter Patient Instructions Patient Instructions Aleksander Stern DO - 04/18/2015 8:55 AM PDTPlease undergo new x-rays of the cervical spine in 3 and 9 months. Please follow-up with me as needed. documented in this encounter Progress Notes Aleksander Stern DO - 04/18/2015 8:55 AM PDTFormatting of this note might be different fro m the original. Aleksander Stern DO [address] [facility], [address] [place], [place] [address] FAX: NEUROSURGERY FOLLOW-UP CHIEF COMPLAINT: Chief Complaint Patient presents with Follow-up Post op HISTORY OF PRESENT ILLNESS: The patient is a 54 y.o. male that had a C3-T2 anterior and po sterior cervical fusion by me for neck pain, arm pain, and weakness around 3 months ago. He returns and overall is doing fairly well. The patient complains of occasional neck ache an d arm symptoms, but they are much improved since before surgery. Issues with swallowing hav e not been a major issue. Most of the pre- and postsurgical complaints have continued to im prove overall. He also complains of back and leg pain, but will wait until he heals more fr om this surgery before proceeding with any lumbar surgery. PAST MEDICAL HISTORY: Past Medical History Diagnosis Date Hepatitis C COPD (chronic obstructive pulmonary disease) (HCC) Restless leg syndrome Asthma Thyroid disease Hyperlipidemia Diverticulitis Hernia, hiatal Anxiety Emphysema of lung (HCC) Hypertension Migraine Neuropathy Thyroid disease History of tobacco use PAST SURGICAL HISTORY: Past Surgical History Procedure Laterality Date Cholecystectomy Shoulder surgery Left Rotator cuff Knee arthroscopy Right Thumb surgery Left Ulnar tunnel release Left Finger fracture surgery Left middle finger crush injury Cervical spine surgery N/A 01/07/2015 Procedure: C3-4, C4-5, C5-6, C6-7, Anterior Cervical Discectomy w/ Fusion and Plating, Po sterior Fusion at C3-4, C4-5, C5-6, C6-7, C7-T1, and T1-2; Surgeon: Aleksander Stern DO; Lo cation: [facility] CURRENT MEDICATIONS: Current Outpatient Prescriptions Medication Sig Dispense Refill busPIRone (BUSPAR) 10 MG tablet Take 15 mg by mouth every 12 hours. diazepam (VALIUM) 5 mg tablet Take 1 tablet by mouth every 6 hours as needed (muscle sp asm). 60 tablet 0 famotidine (PEPCID) 20 mg tablet Take 20 mg by mouth 2 times daily. fluticasone-salmeterol (ADVAIR) 500-50 mcg/puff diskus inhaler Inhale 1 puff into the l ungs Twice Daily. gabapentin (NEURONTIN) 300 mg capsule Take 2 capsules by mouth 3 times daily. 180 capsu le 2 HYDROcodone-acetaminophen (NORCO) 10-325 mg per tablet Take 1-2 tablets by mouth every 4 hours as needed for Pain. 120 tablet 0 ipratropium (ATROVENT HFA) 17 mcg/puff inhaler Inhale 2 puffs into the lungs 4 times da adrian. Lactulose Encephalopathy 10 g/15 mL SOLN Take 15-30 mLs by mouth Daily as needed. 240 m L 0 levalbuterol (XOPENEX) 0.63 mg/3 mL nebulizer solution Take 1 ampule by nebulization ev rasheed 4 hours as needed for Wheezing. levothyroxine (SYNTHROID, LEVOTHROID) 150 mcg tablet Take 150 mcg by mouth every mornin g (before breakfast). metoprolol tartrate (LOPRESSOR) 50 mg tablet Take 25 mg by mouth 2 times daily. omeprazole (PRILOSEC) 20 mg capsule Take 20 mg by mouth every morning (before breakfast ). rOPINIRole (REQUIP) 0.5 MG tablet Take 0.5 mg by mouth 3 times daily. No current facility-administered medications for this visit. ALLERGIES: Allergies Allergen Reactions Doxycycline Anaphylaxis Throat swelling Aspirin Other (See Comments) Ulceration of stomach Adhesive & Tape Rash Albuterol Anxiety Caused severe anxiety. SOCIAL HISTORY: The patient reports that he has been smoking. He quit smokeless tobacco use about a year ago. He reports that he drinks alcohol. He reports that he uses illicit drugs (Marijuana) ab out twice per week. FAMILY HISTORY: Family History Problem Relation Age of Onset Heart disease Mother Heart disease Father Heart disease Sister Heart disease Brother Heart disease Sister Diabetes Mother INTERIM PHYSICAL EXAMINATION: Blood pressure 143/95, pulse 84, resp. rate 18, height 1.88 m (6' 2"), weight 105.235 kg (2 32 lb). Body mass index is 29.77 kg/(m^2). GENERAL: Jose Raul Palafox is in no acute distress with unlabored respirations. HEENT: HEAD/FACE: Normocephalic and atraumatic. There are no areas of recent trauma. SPINE: The patient s incision has healed further and is again without drainage, erythema, or discharge EXTREMITIES: No lower extremity edema. NEUROLOGICAL EXAMINATION: MENTAL STATUS: The patient is awake, alert, and oriented. He follows simple and complex commands MOTOR EXAM: Motor strength is 4+/5. This is improved from the preoperative exam. SENSORY EXAM: The sensory examination improved from the preoperative exam. REFLEXES: Reflexes are unchanged from his preoperative history and physical. RADIOGRAPHIC REVIEW: The patient s postoperative x-rays show stable instrumentation and alignment and were rev iewed with the patient today. There have been no interval changes since the immediate posto perative films. There has been increased arthrodesis since the patient s last x-ray which was also reviewed for comparison. ASSESSMENT: S/P C3-T2 anterior and posterior cervical fusion: Encounter Diagnoses Name Primary? Cervical spondylosis Yes S/P cervical spinal fusion Past Medical History Diagnosis Date Hepatitis C COPD (chronic obstructive pulmonary disease) (HCC) Restless leg syndrome Asthma Thyroid disease Hyperlipidemia Diverticulitis Hernia, hiatal Anxiety Emphysema of lung (HCC) Hypertension Migraine Neuropathy Thyroid disease History of tobacco use PLAN: Overall, the patient is doing well. The patient's preoperative symptoms are improving at this point. I have increased the patient s activities as of today, and I would like the patient to co ntinue to advance with activities as tolerated. I am hoping to see complete healing in the next 3-9 months time and will continue to follow the patient with x-rays. I hope sincerely that he continues to see further improvement in his symptoms over the course of his recovery . He will undergo repeat x-ray of the neck in 3 and 9 months and follow-up with me as needed. He will call when/if he is ready to proceed with workup of his lumbar issues. At that time I will order new MRI of the lumbar spine and flexion/extension x-rays of the lumbar spine. He is also concerned about his hydrocodone and tylenol combination for pain management. I a m not prescribing this medication, but will make the recommendation that he transition to ox ycodone without tylenol. ELECTRONICALLY SIGNED BY: Aleksander Stern DO, 04/18/2015 9:01 documented in this encounter Plan of Treatment + +---------+--------+ + + | Name | Type | Priori | Associated Diagnoses | Order Schedule | | | | ty | | | + +---------+--------+ + + | XR CERVICAL SPINE 2 | Imaging | Routin | Cervical | Expected: 01/17/2016 | | OR 3 VIEWS | | e | spondylosis S/P | (Approximate), | | | | | cervical spinal | Expires: 04/18/2016 | | | | | fusion | | + +---------+--------+ + + | XR CERVICAL SPINE 2 | Imaging | Routin | Cervical | Expected: 07/19/2015 | | OR 3 VIEWS | | e | spondylosis S/P | (Approximate), | | | | | cervical spinal | Expires: 04/17/2016 | | | | | fusion | | + +---------+--------+ + + documented as of this encounter Visit Diagnoses + + | Diagnosis | + + | Cervical spondylosis - Primary Cervical spondylosis without myelopathy | + + | S/P cervical spinal fusion Arthrodesis status | + + documented in this encounter
--- OUTSIDE RECORDS SUMMARY | ~2020-03-18 | XMS | Encounter Summary ---
Demographics + + + | Address | [address] | | | [place] [address] | + + + | Home Phone | | + + + | Preferred Language | Unknown | + + + | Marital Status | | + + + | Mormon Affiliation | Unknown | + + + | Race | White | + + + | Ethnic Group | Not or | + + + Author + + + | Author | [facility] | | | and [place] | + + + | Organization | [facility] | | | and [...] Team Providers + +------+ + | Care Aviation Operations Specialist Name | Role | Phone | + [...] + + + | Closed | | | | | | +--------+--------+ + + + + Encounter Details +--------+ + + + + | Date | Type | Department | Care Team | Description | +--------+ + + + + | 04/18/ | Hospital | [facility] | Cecil Hensley, | S/P cervical spinal | | 2014 | Encounter | MED CTR XRAY [address] | PA-C [address] | fusion; Cervical | | | | [address] [place] | [address] [place] | radicular pain; | | | | [place] [address] | [place] [address] | Cervicalgia | | | | [phone] | [phone] | | | | | | | [...] | | Former User | | | 10/15/20 | | | | | 14 | [...] | | 0 | | | | 10 MG tablet | every 12 hours. | | | | 7 | + + + +---------+ + + | diazepam (VALIUM) | Take 1 tablet by | 60 | 0 | 02/01/20 | | | 5 mg tablet | mouth every 6 hours | tablet | | 15 | 6 | | | as needed (muscle | | | | | | | spasm). | | | | | + + + +---------+ + + | gabapentin | Take 2 capsules by | 180 | 2 | 01/12/20 | | | (NEURONTIN) 300 mg | mouth 3 times daily. | capsule | | 15 | 7 | | capsule | | | | | | + + + +---------+ + + | | Take 1-2 tablets by | 120 | 0 | 02/01/20 | | | HYDROcodone-acetamin | mouth every 4 hours | tablet | | 15 | 7 | | ophen (NORCO) 10-325 | as needed for Pain. | | | | | | mg per tablet | | | | | | + + + +---------+ + + | Lactulose | Take 15-30 mLs by | 240 mL | 0 | 01/12/20 | | | Encephalopathy 10 | mouth Daily as | | | 15 | 6 | | g/15 mL SOLN | needed. | | | | | + + + +---------+ + + | levalbuterol | Take 1 ampule by | | 0 | | | | (XOPENEX) 0.63 mg/3 | nebulization every 4 | | | | 7 | | mL nebulizer | hours as needed for | | | | | | solution | Wheezing. | | | | | + + + +---------+ + + | levothyroxine | Take 150 mcg by | | 0 | | | | (SYNTHROID, | mouth every morning | | | | 7 | | LEVOTHROID) 150 mcg | (before breakfast). | | | | | | tablet | | | | | | + + + +---------+ + + | metoprolol | Take 50 mg by mouth | | 0 | | | | tartrate (LOPRESSOR) | 2 times daily. | | | | 7 | | 50 mg tablet | | | | | | + + + +---------+ + + documented as of this encounter Plan of Treatment Not on filedocumented as of this encounter Procedures + +--------+ + + + | Procedure Name | Priori | Date/Time | Associated Diagnosis | Comments | | | ty | | | | + +--------+ + + + | XR CERVICAL SPINE 2 | Routin | 04/18/2015 | S/P cervical | Results for this | | OR 3 VIEWS | e | 7:30 AM | spinal fusion | procedure are in the | | | | PDT | Cervical radicular | results section. | | | | | pain Cervicalgia | | + +--------+ + + + documented in this encounter Results XR CERVICAL SPINE 2 OR 3 VIEWS (04/18/2015 7:30 AM PDT) + + | Specimen | + + | | + + + + + | Narrative | Performed At | + + + | THREE VIEWS CERVICAL SPINE 04/18/2015 7:30 AM CLINICAL HISTORY: | [facility] | | Postop fusion COMPARISON: Cervical radiographs February 20 and January 07 | [facility] | | FINDINGS: Anterior plate and screw and interbody fusion hardware | [facility] | | again extends from C3 through C7 and appears intact and stable and | - IMAGING | | satisfactory in position. Posterior lalitha and screw fusion hardware | | | again extends from C3 through T2 and also appears intact and stable. | | | Calcific densities scattered along the posterior fusion rods on the | | | frontal view are stable and likely reflect fusion substrate. | | | Cervical vertebral height and alignment are maintained, without | | | evident fracture or subluxation. Imaged skull base, soft tissue | | | structures and lung apices are unremarkable. IMPRESSION - 1. | | | STABLE CHANGES OF ANTERIOR AND POSTERIOR FUSION EXTENDING FROM C3 | | | THROUGH T2. Dictated and Signed by: Anderson Moore MD | | | Electronically signed: 04/18/2015 7:42 AM | | + + + + + | Procedure Note | + + | Ascencion, Elliott Results In - 04/18/2015 7:45 AM PDT THREE VIEWS CERVICAL SPINE 04/18/2015 | | 7:30 AMCLINICAL HISTORY: Postop fusionCOMPARISON: Cervical radiographs February 20 and December | | 16FINDINGS: Anterior plate and screw and interbody fusion hardware again extendsfrom C3 | | through C7 and appears intact and stable and satisfactory in position. Posterior lalitha and | | screw fusion hardware again extends from C3 through T2 andalso appears intact and | | stable. Calcific densities scattered along theposterior fusion rods on the frontal view | | are stable and likely reflect fusionsubstrate. Cervical vertebral height and alignment | | are maintained, withoutevident fracture or subluxation. Imaged skull base, soft tissue | | structures andlung apices are unremarkable.IMPRESSION -1. STABLE CHANGES OF ANTERIOR | | AND POSTERIOR FUSION EXTENDING FROM C3 THROUGHT2.Dictated and Signed by: Anderson Moore MD | | Electronically signed: 04/18/2015 7:42 AM | |substrate. Cervical vertebral height and alignment are maintained, without | |evident fracture or subluxation. Imaged skull base, soft tissue structures and | |lung apices are unremarkable. | | | |IMPRESSION - | |1. STABLE CHANGES OF ANTERIOR AND POSTERIOR FUSION EXTENDING FROM C3 THROUGH | |T2. | | | |Dictated and Signed by: Anderson Moore MD | | Electronically signed: 04/18/2015 7:42 AM | + + + + + + + | Performing | Address | City/State/Zipcode | Phone Number | | Organization | | | | + + + + + | [facility] | [address] | [place] | [phone] | | [facility] | | [address] | | | - IMAGING | | | | + + + + + documented in this encounter Visit Diagnoses + + | Diagnosis | + + | S/P cervical spinal fusion Arthrodesis status | + + | Cervical radicular pain Brachial neuritis or radiculitis nos | + + | Cervicalgia | + + documented in this encounter"
--- OUTSIDE RECORDS SUMMARY | ~2020-03-18 | XMS | Encounter Summary ---
Demographics + + + | Address | [address] | | | [place] [address] | + + + | Home Phone | | + + + | Preferred Language | Unknown | + + + | Marital Status | | + + + | Voodoo Affiliation | Unknown | + + + | Race | White | + + + | Ethnic Group | Not or | + + + Author + + + | Author | [facility] | | | and [place] | + + + | Organization | [facility] | | | [...] Team Providers + +------+ + | Care Dining Car Server Name | Role | Phone | + +------+ + PCP | Unavailable | + +------+ + Encounter Details +--------+ + + + + | Date | Type | Department | Care Team | Description | +--------+ + + + + | 12/30/ | [facility] | [facility] | Gary Gomez | | | 2010 | Encounter | MED CTR XRAY [address] | MD [address] | | | | | [place] | [facility] | | | | | [place] [address] | [place] | | | | | [phone] | [address] | | | | | | | | +--------+ + + + + Social History + +-------+ +--------+------+ | Tobacco Use | Types | Packs/Day | Years | Date | | | | | Used | | + +-------+ +--------+------+ | Never Assessed | | | | | + +-------+ +--------+------+ + + + | Sex Assigned at [...] + +--------+ + + + | [facility] | | 2010 | | Results for this | | | | 7:27 AM | | procedure are in the | | | | PDT | | results section. | + +--------+ + + + documented in this encounter Results [facility]at[facility] (2010 7:27 AM PDT) + + | Specimen | + + | | + + + + + | Narrative | Performed At | + + + | [facility] Diagnostic Imaging Department | [facility] | | [address] [facility] | [facility] | | NUCLEAR HEPATOBILIARY SCAN | DIAG IMG | | 2010 CLINICAL HISTORY: GALLBLADDER WALL THICKENING | | | REPORTEDLY SEEN ON PREVIOUS ULTRASOUND WITH ABNORMAL L IVER FUNCTION | | | TESTS AND EPIGASTRIC PAIN AND VOMITING. COMPARISON: None | | | available. TECHNIQUE: Immediately following the uneventful | | | intravenous administration of 8.6 mCi Tc 99m Cholete c, dynamic | | | planar scintigraphy of the upper abdomen is performed. Additional | | | dynamic scintigraphy is performed following intravenous | | | administration of 1.8 mcg Cholecystokinin. Region of interest rudolph | | | sis and a time activity curve are utilized to calculate a gallbladder | | | ejection fraction. FINDINGS: There is prompt, homogeneous | | | uptake of radiotracer by the liver, without evident focal hep atic | | | abnormality. Activity passes into the gallbladder and common duct | | | within 15 minutes of Choletec injection. Activity passes through | | | the common duct and into multiple bowel loops over the course of the | | | study. The gallbladder ejection fraction is abnormally low at 8% | | | (normally greater than 35%). The patient experienced right sided | | | abdominal pain with CCK injection. IMPRESSION: 1. | | | ABNORMALLY LOW GALLBLADDER EJECTION FRACTION CONSISTENT WITH BILIARY | | | DYSKINESIA, WITHOUT EVIDENCE OF COMMON DUCT OR CYSTIC DUCT | | | OBSTRUCTION. Dictated Date/Time: 2010 10:23 | | | Transcribed Date/Time: 2010 10:31 Associate Director Data & Analytics: | | | <Electronically Signed by Anderson Moore MD> 12/30/10 1201 | | + + + + + | Procedure Note | + + | Asc[facility], Rad Conversion - 08/31/2013 3:06 PM [facility] | | Diagnostic Imaging Department [address] [place] [address] | | NUCLEAR HEPATOBILIARY SCAN 2010 CLINICAL HISTORY: | | GALLBLADDER WALL THICKENING REPORTEDLY SEEN ON PREVIOUS ULTRASOUND WITH ABNORMAL LIVER | | FUNCTION TESTS AND EPIGASTRIC PAIN AND VOMITING. COMPARISON: None available. | | TECHNIQUE: Immediately following the uneventful intravenous administration of 8.6 mCi | | Tc 99m Choletec, dynamic planar scintigraphy of the upper abdomen is performed. | | Additional dynamic scintigraphy is performed following intravenous administration of 1.8 | | mcg Cholecystokinin. Region of interest analysis and a time activity curve are | | utilized to calculate a gallbladder ejection fraction. FINDINGS: There is prompt, | | homogeneous uptake of radiotracer by the liver, without evident focal hepatic | | abnormality. Activity passes into the gallbladder and common duct within 15 minutes of | | Choletec injection. Activity passes through the common duct and into multiple bowel | | loops over the course of the study. The gallbladder ejection fraction is abnormally low | | at 8% (normally greater than 35%). The patient experienced right sided abdominal pain | | with CCK injection. IMPRESSION: 1. ABNORMALLY LOW GALLBLADDER EJECTION FRACTION | | CONSISTENT WITH BILIARY DYSKINESIA, WITHOUT EVIDENCE OF COMMON DUCT OR CYSTIC DUCT | | OBSTRUCTION. Dictated Date/Time: 2010 10:23Transcribed Date/Time: 2010 | | 10:31Transcriptionist: <Electronically Signed by Anderson Moore MD> 12/30/10 1201 | |atic abnormality. Activity passes into the gallbladder and common duct within 15 minutes o f Choletec | | injection. Activity passes through the common duct and into multiple bowel loops over the course of | | the study. The gallbladder ejection fraction is abnormally low at 8% (normally greater th an 35%). | |The patient experienced right sided abdominal pain with CCK injection. | | | |IMPRESSION: | |1. ABNORMALLY LOW GALLBLADDER EJECTION FRACTION CONSISTENT WITH BILIARY DYSKINESIA, WITHOU T EVIDENCE | | OF COMMON DUCT OR CYSTIC DUCT OBSTRUCTION. | | | |Dictated Date/Time: 2010 10:23 | |Transcribed Date/Time: 2010 10:31 | |Associate Director Data & Analytics: | |<Electronically Signed by Anderson Moore MD> 12/30/10 1201 | + + + +---------+ + + | Performing | Address | City/State/Zipcode | Phone Number | | Organization | | | | + +---------+ + + | [place] | | | | | [place] | | | | + +---------+ + + documented in this encounter Visit Diagnoses Not on filedocumented in this encounter"
--- OUTSIDE RECORDS SUMMARY | ~2020-03-18 | XMS | Encounter Summary ---
Demographics + + + | Address | [address] | | | [place] [address] | + + + | Home Phone | | + + + | Preferred Language | Unknown | + + + | Marital Status | | + + + | Moravian Affiliation | Unknown | + + + [...] Team Providers + +------+ + | Care Bull Rider Name | Role | Phone | + +------+ + | Gary Gomez MD | PCP | | + +------+ + Reason for Visit +--------+--------+ + | Reason | Onset | Comments | | | Date | | +--------+--------+ + | Other | 02/07/ | Dose change | | | 2019 | | +--------+--------+ + Encounter Details +--------+ + + + + | Date | Type | Department | Care Team | Description | +--------+ + + + + | 02/07/ | Telephone | [facility] | Brianda Francis | Other (Dose change ) | | 2018 | | CARDIOLOGY [address] | PATRICIO Fagan [address] | | | | | [place], | [address] [place] | | | | | [place] [address] | [place] [address] | | | | | [phone] | [phone] | | | | | | | [...] this encounter Miscellaneous Notes Telephone Encounter - Taniya Moon RN - 02/08/2019 9:24 AM PDTPt notified to take 1 00 mg of metoprolol bid, Rx faxed to pharmacy. ...........................................He raul Moon RN on 02/08/19 at 9:25 eleBrianda Barakat PA-C - 02/07/2019 4:32 PM PDTAfter patient's visit today with Dr. Ke garcia, it was recognized that his blood pressure was quite elevated at the time of his offic e visit. Due to this, recommend increasing metoprolol to 100mg BID. (previously taking 50 BID). I tried to reach the patient but only obtained an unidentified voicemail. Please call chao ent to inform and send rx to pharmacy. Thanks! documente d in this encounter Plan of Treatment Not on filedocumented as of this encounter Visit Diagnoses Not on filedocumented in this encounter"
--- OUTSIDE RECORDS SUMMARY | ~2020-03-18 | XMS | Encounter Summary ---
Demographics + + + | Address | [address] | | | [place] [address] | + + + | Home Phone | | + + + | Preferred Language | Unknown | + + + | Marital Status | | + + + | Lutheran Affiliation | Unknown | + + + | Race | White | + + + | Ethnic Group | Not or | + + + Author + + + | Author | [facility] | | | and [place] | + + + | Organization | [facility] | | | [...] Team Providers + +------+ + | Care Cardiology Associate Name | Role | Phone | + [...] Description | +--------+---------+ + + + | 03/04/ | Office | [facility] | Latonia Olson, | ST elevation | | 2017 | Visit | MED CTR CARDIAC | MD [address] | myocardial | | | | REHABILITATION [address] | [place] | infarction involving | | | | [address] [place] | [address] | right coronary | | | | [place] [address] | | artery (HCC) | | | | [phone] | | | +--------+---------+ + + + [...] encounter Progress Notes Pricilla Zaldivar RN - 03/04/2017 10:00 AM PDT [facility] [address] [facility] [address] Cardiac Rehab Date: 03/04/2017 Patient Information Patient Name: Jose Raul Palafox Date of : 1960 Age: 56 y.o. Encounter Diagnoses Code Name Primary? 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 Yes Any Changes in Medications? No 01/19/17 gabapentin. Any Problems to Report? No Pain Level: 01/31 leg, T-spine, neck Home exercise: Limited walking [...] min Electronically signed by: Pricilla Zaldivar RN, 03/04/2017 10:47 Patient Name: Jose Raul Palafox/: 1960/ signed by Pricilla Zaldivar RN at 03/04/2017 10:47 AM PDTdocumented in this encounter Plan of [...]
--- OUTSIDE RECORDS SUMMARY | ~2020-03-18 | XMS | Encounter Summary ---
Demographics + + + | Address | [address] | | | [place] [address] | + + + | Home Phone | | + + + | Preferred Language | Unknown | + + + | Marital Status | | + + + | Yarsani Affiliation | Unknown | + + + | Race | White | + + + | Ethnic Group | Not or | + + + Author + + + | Author | [facility] | | | and [place] | + + + | Organization | [facility] | | | [...] Team Providers + +------+ + | Care Shade Cloth Finisher Name | Role | Phone | + [...] | +--------+ + + + + | 06/02/ | Hospital | [facility] | Aleksander Stern, | Neck pain | | 2016 | Encounter | MED CTR XRAY [address] | DO [address] | | | | | [place] | [address] | | | | | [place] [address] | [address] | | | | | [phone] | | | +--------+ + + + + Social History + +-------+ +--------+------+ | Tobacco Use | Types | Packs/Day | Years | Date | | | | | Used | | + +-------+ +--------+------+ | Current Some Day | | 0.1 | 10 | | | Smoker | | | | | + +-------+ +--------+------+ + +---+---+---+ | Smokeless Tobacco: | | | | | Never Used | | | | + +---+---+---+ + + | Comments: Battling with quiting: Smokes about 5 to 10 ciggarets per day | + + + + +---------+ + [...] + + + | XR CERVICAL SPINE 4 | Routin | 06/02/2016 | Neck pain | Results for this | | OR 5 VWS | e | 2:05 PM | | procedure are in the | | | | PST | | results section. | + +--------+ + + + documented in this encounter Results XR Cervical Spine 4 or 5 Vws (06/02/2016 2:05 PM PST) + + | Specimen | + + | | + + + + + | Narrative | Performed At | + + + | XR CERVICAL SPINE 4 OR 5 VWS 06/02/2016 2:05 PM HISTORY: Neck | [facility] | | pain. COMPARISON: Multiple priors. FINDINGS: Visualized skull | [facility] | | base and facial structures demonstrate no acute findings. | [facility] | | Prevertebral soft tissues are normal. Again visualized are | - IMAGING | | hardware for anterior fusion from C3 through C7 and hardware for | | | posterior fusion from C3 through T2 without pedicle screws at C7. | | | Interbody graft material are noted at these levels. Hardware are | | | intact. Mild degenerative changes are noted of the anterior | | | atlantoaxial joint. There is minimal anterolisthesis of C2 over C3 | | | with no instability. Bone mineralization is normal. The dens is | | | normal. Vertebral body height are preserved with no evidence for | | | compression fractures. Disc height are maintained. Facet joints are | | | intact. Soft tissue structures are unremarkable. Visualized upper | | | chest demonstrates no acute findings. IMPRESSION - Stable | | | anterior fusion from C3 through C7 and posterior fusion from C3 | | | through T2 with no instability. Dictated and Signed by: Shorty | | | MD Jonathan Electronically signed: 06/02/2016 3:53 PM | | + + + + + | Procedure Note | + + | [facility] [place] Results In - 06/02/2016 3:56 PM PST XR CERVICAL SPINE 4 OR 5 VWS 06/02/2016 | | 2:05 PMHISTORY: Neck pain.COMPARISON: Multiple priors.FINDINGS:Visualized skull base and | | facial structures demonstrate no acute findings.Prevertebral soft tissues are | | normal.Again visualized are hardware for anterior fusion from C3 through C7 andhardware | | for posterior fusion from C3 through T2 without pedicle screws at C7.Interbody graft | | material are noted at these levels. Hardware are intact. Milddegenerative changes are | | noted of the anterior atlantoaxial joint. There isminimal anterolisthesis of C2 over C3 | | with no instability. Bone mineralizationis normal. The dens is normal. Vertebral body | | height are preserved with noevidence for compression fractures. Disc height are | | maintained. Facet joints areintact. Soft tissue structures are unremarkable. Visualized | | upper chestdemonstrates no acute findings. IMPRESSION -Stable anterior fusion from C3 | | through C7 and posterior fusion from C3 throughT2 with no instability.Dictated and | | Signed by: Shorty Castillo MD Electronically signed: 06/02/2016 3:53 PM | |degenerative changes are noted of the anterior atlantoaxial joint. There is | |minimal anterolisthesis of C2 over C3 with no instability. Bone mineralization | |is normal. The dens is normal. Vertebral body height are preserved with no | |evidence for compression fractures. Disc height are maintained. Facet joints are | |intact. Soft tissue structures are unremarkable. Visualized upper chest | |demonstrates no acute findings. | | | |IMPRESSION - | |Stable anterior fusion from C3 through C7 and posterior fusion from C3 through | |T2 with no instability. | | | |Dictated and Signed by: Shorty Castillo MD | | Electronically signed: 06/02/2016 3:53 PM | + + + + + + + | Performing | Address | City/State/Zipcode | Phone Number | | Organization | | | | + + + + + | [address] | [address] | [place] | [phone] | | [facility] | | [address] | | | - IMAGING | | | | + + + + + documented in this encounter Visit Diagnoses + + | Diagnosis | + + | Neck pain Cervicalgia | + + documented in this encounter"
--- OUTSIDE RECORDS SUMMARY | ~2020-03-18 | XMS | Encounter Summary ---
Demographics + + + | Address | [address] | | | [place] [address] | + + + | Home Phone | | + + + | Preferred Language | Unknown | + + + | Marital Status | | + + + | Presybeterian Affiliation | Unknown | + + + | Race | White | + + + | Ethnic Group | Not or | + + + Author + + + | Author | [facility] | | | and [place] | + + + | Organization | [facility] | | [...] Team Providers + +------+ + | Care Church Supervisor Name | Role | Phone | + +------+ + | Gary Gomez MD | PCP | | + +------+ + Reason for Visit +--------+--------+ + | Reason | Onset | Comments | | | Date | | +--------+--------+ + | Other | 04/28/ | | | | 2014 | | +--------+--------+ + Encounter Details +--------+ + + + + | Date | Type | Department | Care Team | Description | +--------+ + + + + | 10// | Telephone | [facility] | Aleksander Stern, | Other | | 2014 | | NEUROSURGERY [address] | DO [address] | | | | | [address] | [address] [place], [place] | | | | | [place], [place] | [address] | | | | | [address] | | | | | | [phone] | | | +--------+ + + + [...] this encounter Miscellaneous Notes Telephone Encounter - Palacios, Lois M - 04/28/2015 3:06 PM PDTPatient called stating that he has not heard from Zack Abbott yet regarding a bone growth stimulatorElectronically si gned by Lois Palacios at 04/28/2015 3:10 PM PDTdocumented in this encounter Plan of Treatment Not on filedocumented as of this encounter Visit Diagnoses Not on filedocumented in this encounter"
--- OUTSIDE RECORDS SUMMARY | ~2020-03-18 | XMS | Encounter Summary ---
Demographics + + + | Address | [address] | | | [place] [address] | + + + | Home Phone | | + + + | Preferred Language | Unknown | + + + | Marital Status | | + + + | Jain Affiliation | Unknown | + + + | Race | White | + + + | Ethnic Group | Not or | + + + Author + + + | Author | [facility] | | | and [place] | + + + | Organization | [facility] | | [...] Team Providers + +------+ + | Care Regulatory Affairs Associate Name | Role | Phone | + +------+ + | Gary Gomez MD | PCP | | + +------+ + Encounter Details +--------+ + + + + | Date | Type | Department | Care Team | Description | +--------+ + + + + | 02/14/ | Orders Only | [facility] | [facility] | Hepatitis C virus | | 2019 | | [facility] [address] | [facility] [address] | infection without | | | | [address] | [address] [place] | hepatic coma, | | | | [place], [place] | [place] [address] | unspecified | | | | [id number] | [phone] | chronicity (Primary | | | | [phone] | | Dx); Restless leg | | | | | | syndrome; Chronic | | | | | | obstructive | | | | | | pulmonary disease, | | | | | | unspecified COPD | | | | | | type (HCC); Asthma, | | | | | | unspecified asthma | | | | | | severity, | | | | | | unspecified whether | | | | | | complicated, | | | | | | unspecified whether | | | | | | persistent; | | | | | | Hypothyroidism, | | | | | | unspecified type; | | | | | | Mixed | | | | | | hyperlipidemia; | | | | | | Diverticulitis; Low | | | | | | back pain, | | | | | | unspecified back | | | | | | pain laterality, | | | | | | unspecified | | | | | | chronicity, with | | | | | | sciatica presence | | | | | | unspecified; | | | | | | Essential | | | | | | hypertension; | | | | | | Osteoarthritis of | | | | | | spine with | | | | | | radiculopathy, | | | | | | lumbar region | +--------+ + + + + Social [...] | | | + +---+---+---+ + + +---------+ + | Alcohol Use | Drinks/Week | oz/Week | Comments | + + +---------+ + | Yes | 0 Standard drinks | 2.0 | maybe a couple | | | or equivalent 2 | | drinks a week | | | Shots of liquor | | | + + +---------+ + [...] Not on filedocumented as of this encounter Results Basic Metabolic Panel (02/14/2019 12:21 PM PDT) + + + + + + | Component | Value | Ref Range | Performed | Pathologist | | | | | At | Signature | + + + + + + | Na | 140 | 136 - 145 | [facility] | | | | | mmol/L | [facility] | | | | | | [facility] | | | | | [facility] - | | | | | | LABORATORY | | + + + + + + | K | 4.1 | 3.4 - 5.1 | [facility] | | | | | mmol/L | [facility] | | | | | | [facility] | | | | | | C[facility] - | | | | | | LABORATORY | | + + + + + + | Cl | 108 (H) | 98 - 107 mmol/L | [facility] | | | | | | [facility] | | | | | | [facility] | | | | | | C[facility] - | | | | | | LABORATORY | | + + + + + + | CO2 | 29 | 20 - 31 mmol/L | [facility] | | | | | | [facility] | | | | | | [facility] | | | | | | [facility] - | | | | | | LABORATORY | | + + + + + + | Anion Gap | 3 | 3 - 16 mmol/L | [facility] | | | | | | [facility] | | | | | | [facility] | | | | | | [facility] - | | | | | | LAB[facility]ATORY | | + + + + + + | Glucose | 94 | 60 - 106 mg/dL | [facility] | | | | | | [facility] | | | | | | [facility] | | | | | | C[facility] - | | | | | | LABORATORY | | + + + + + + | BUN | 19 | 9 - 23 mg/dL | [facility] | | | | | | [facility] | | | | | | [facility] | | | | | | C[facility] - | | | | | | LABORATORY | | + + + + + + | Creatinine | 1.01 | 0.70 - 1.30 | [facility] | | | | | mg/dL | [facility] | | | | | [facility] | | | | | | [facility] - | | | | | | LABORATORY | | + + + + + + | eGFR, | >60Comment: GLOMERULAR | >=60 | [facility] | | | non- | FILTRATION | mL/min/1.73m2 | [facility] | | | [place] | RATE,ESTIMATED | | MEDICAL | | | | mL/min/1.43u1Ubav than | | CENTER - | | | | 60 Chronic kidney | | LABORATORY | | | | disease,if found over a | | | | | | 3-month period.Less than | | | | | | 15 Kidney failureFor | | | | | | | | | | | | Americans,multiply the | | | | | | calculated GFR by 1.21. | | | | | | | | | | + + + + + + | Calcium | 9.6 | 8.7 - 10.4 | [facility] | | | | | mg/dL | [facility] | | | | | | [facility] | | | | | | CENTER - | | | | | | LABORATORY | | + + + + + + | BUN/Creatin | 18.8 | | [facility] | | | ine Ratio | | | [facility] | | | | | | [facility] | | | | | | CENTER - | | | | | | LABORATORY | | + + + + + + + + | Specimen | + + | Blood | + + + + + + + | Performing | Address | City/State/Zipcode | Phone Number | | Organization | | | | + + + + + | [facility] | [address] | [place] | [phone] | | [facility] | | [address] | | | - LABORATORY | | | | + + + + + CBC with Differential (02/14/2019 12:21 PM PDT) + + + + + + | Component | Value | Ref Range | Performed | Pathologist | | | | | At | Signature | + + + + + + | White Blood | 10.3 | 4.0 - 11.0 K/uL | [facility] | | | Cells | | | [facility] | | | | | | MEDICAL | | | | | | CENTER - | | | | | | LABORATORY | | + + + + + + | Red Blood | 4.64 | 4.30 - 5.70 | [facility] | | | Cells | | M/uL | [facility] | | | | | | MEDICAL | | | | | | CENTER - | | | | | | LABORATORY | | + + + + + + | Hemoglobin | 15.5 | 13.5 - 18.0 | [facility] | | | | | g/dL | [facility] | | | | | | MEDICAL | | | | | | CENTER - | | | | | | LABORATORY | | + + + + + + | Hematocrit | 44.8 | 40.0 - 51.0 % | [facility] | | | | | | [facility] | | | | | | [facility] | | | | | | C[facility] - | | | | | | LABORATORY | | + + + + + + | MCV | 96.6 | 83.0 - 101.0 fL | [facility] | | | | | | [facility] | | [facility] | | | [facility] | | | | | | C[facility] - | | | | | | LABORATORY | | + + + + + + | MCH | 33.4 | 28.0 - 35.0 pg | [facility] | | | | | | [facility] | | | | | | [facility] | | | | | | C[facility] - | | | | | | LABORATORY | | + + + + + + | MCHC | 34.6 | 32.0 - 36.0 | [facility] | | | | | g/dL | [facility] | | | | | | MEDICAL | | | | | | CENTER - | | | | | | LABORATORY | | + + + + + + | RDW-CV | 12.3 | <15.0 % | [facility] | | | | | | [facility] | | [facility] | | [facility] | | | | | | CENTER - | | | | | | LABORATORY | | + + + + + + | RDW-SD | 43.5 | 35.1 - 46.3 fL | [facility] | | | | | | [facility] | | | | | | [facility] | | | | | | C[facility] - | | | | | | LABORATORY | | + + + + + + | Platelet | 240 | 140 - 440 K/uL | [facility] | | | Count | | | [facility] | | | | | | MEDICAL | | | | | | CENTER - | | | | | | LABORATORY | | + + + + + + | MPV | 9.8 | 6.5 - 12.4 fL | [facility] | | | | | | [facility] | | | | | | [facility] | | | | | | CENTER - | | | | | | LABORATORY | | + + + + + + | % | 57.4 | 45.0 - 82.0 % | [facility] | | | Neutrophils | | | [facility] | | | | | | MEDICAL | | | | | | CENTER - | | | | | | LABORATORY | | + + + + + + | % | 31.4 | 20.0 - 45.0 % | [facility] | | | Lymphocytes | | | [facility] | | | | | | MEDICAL | | | | | | CENTER - | | | | | | LABORATORY | | + + + + + + | % Monocytes | 6.6 | 4.0 - 12.0 % | [facility] | | | | | | [facility] | | | | | | [facility] | | | | | | CENTER - | | | | | | LABORATORY | | + + + + + + | % | 3.2 | 0.0 - 5.0 % | [facility] | | | Eosinophils | | | [facility] | | | | | | MEDICAL | | | | | | CENTER - | | | | | | LABORATORY | | + + + + + + | % Basophils | 1.1 (H) | 0.0 - 1.0 % | [facility] | | | | | | [facility] | | | | | | MEDICAL | | | | | | CENTER - | | | | | | LABORATORY | | + + + + + + | % Immature | 0.3 | 0.0 - 0.4 % | [facility] | | | Granulocyte | | | [facility] | | | s | | | MEDICAL | | | | | | CENTER - | | | | | | LABORATORY | | + + + + + + | Absolute | 5.93 | 1.80 - 8.50 | [facility] | | | Neutrophils | | K/uL | [facility] | | | | | | [facility] | | | | | | CENTER - | | | | | | LABORATORY | | + + + + + + | Absolute | 3.24 (H) | 0.60 - 3.20 | [facility] | | | Lymphocytes | | K/uL | [facility] | | | | | | [facility] | | | | | | CENTER - | | | | | | LABORATORY | | + + + + + + | Absolute | 0.68 | 0.00 - 1.00 | [facility] | | | Monocytes | | K/uL | [facility] | | | | | | [facility] | | | | | | CENTER - | | | | | | LABORATORY | | + + + + + + | Absolute | 0.33 | 0.00 - 0.40 | [facility] | | | Eosinophils | | K/uL | [facility] | | | | | | [facility] | | | | | | CENTER - | | | | | | LABORATORY | | + + + + + + | Absolute | 0.11 (H) | 0.00 - 0.10 | [facility] | | | Basophils | | K/uL | [facility] | | | | | | [facility] | | | | | | CENTER - | | | | | | LABORATORY | | + + + + + + | Absolute | 0.03 | 0.00 - 0.03 | [facility] | | | Immature | | K/uL | [facility] | | | Granulocyte | | | MEDICAL | | | s | | | CENTER - | | | | | | LABORATORY | | + + + + + + | % nRBC | 0 | 0 - 2 per 100 | [facility] | | | | | WBCs | [facility] | | | | | | MED[facility] | | | | | | CENTER - | | | | | | LABORATORY | | + + + + + + | Absolute | 0.00 | 0.00 - 0.01 | [facility] | | | nRBC | | K/uL | [facility] | | | | | | MEDICAL | | | | | | CENTER - | | | | | | LABORATORY | | + + + + + + + + | Specimen | + + | Blood | + + + + + + + | Performing | Address | City/State/Zipcode | Phone Number | | Organization | | | | + + + + + | [facility] | [address] | [place] | [phone] | | [facility] | | [address] | | | - LABORATORY | | | | + + + + + documented in this encounter Visit Diagnoses + + | Diagnosis | + + | Hepatitis C virus infection without hepatic coma, unspecified chronicity - Primary | + + | Restless leg syndrome Restless legs syndrome (RLS) | + + | Chronic obstructive pulmonary disease, unspecified COPD type (HCC) | + + | Asthma, unspecified asthma severity, unspecified whether complicated, unspecified | | whether persistent | + + | Hypothyroidism, unspecified type | + + | Mixed hyperlipidemia | + + | Diverticulitis Diverticulitis of colon (without mention of hemorrhage) | + + | Low back pain, unspecified back pain laterality, unspecified chronicity, with sciatica | | presence unspecified | + + | Essential hypertension Unspecified essential hypertension | + + | Osteoarthritis of spine with radiculopathy, lumbar region | + + documented in this encounter"
--- OUTSIDE RECORDS SUMMARY | ~2020-03-18 | XMS | Encounter Summary ---
Demographics + + + | Address | [address] | | | [place] [address] | + + + | Home Phone | | + + + | Preferred Language | Unknown | + + + | Marital Status | | + + + | Presybeterian Affiliation | Unknown | + + + | Race | White | + + + | Ethnic Group | Not or | + + + Author + + + | Author | [facility] | | | and [place] | + + + | Organization | [facility] | | [...] Team Providers + +------+ + | Care Director Environmental Name | Role | Phone | + +------+ + | Gary Gomez MD | PCP | | + +------+ + Reason for Referral Diagnostic/Screening (Routine) +--------+--------+ + + + + [...] | [address] | [address] | | | | | type | [address] [place] | [place], | | | | | Procedures | [place] | [place] | | | | | [place] Nuclear | [address] | [address] | | | | | Stress Test | Phone: | Phone: | | | | | (Vasodilator | [phone] | [phone] | | | | | ) CHG | Fax: | Fax: | | | | | MYOCARDIAL | [phone] | [phone] | | | | | SPECT | | | | | | | MULTIPLE | | | | | | | STUDIES [place] | | | | | | | CV STRS TST | | | | | | | XERS&/OR RX | | | | | | | CONT ECG W/O | | | | | | | I&R [place] | | | | | | | CARDIAC | | | | | | | STRESS | | | | | | | TST,INTERP/R | | | | | | | EPT ONLY | | | +--------+--------+ + + + + Reason for Visit + + + | Reason | Comments | + + + | Hospital Follow-up | | + + + | Coronary Artery | | | Disease | | + + + | Hypertension | | + + + Evaluate & Treat (Routine) +--------+--------+ + + + + | Status | Reason | Specialty | Diagnoses / | Referred By | Referred To | | | | | Procedures | Contact | Contact | +--------+--------+ + + + + | Closed | | Cardiology | Diagnoses | Patricia, | Whitney | | | | | | Gary | Latonia Jewell MD | | | | | Atherosclero | MD Garry | [address] | | | | | tic heart | [address] [place] | | | | | disease of | [place] | [place], [place] | | | | | [address] | [address] [place] | [address] Phone: | | | | | coronary | [place] | [phone] | | | | | artery with | [address] | Fax: | | | | | unspecified | Phone: | [phone] | | | | | angina | [phone] | | | | | | pectoris | Fax: | | | | | | (HCC) | [phone] | | | | | | Procedures | | | | | | | [place] OFFICE | | | | | | | OUTPATIENT | | | | | | | NEW 60 | | | | | | | MINUTES [place] | | | | | | | OFFICE | | | | | | | OUTPATIENT | | | | | | | VISIT 40 | | | | | | | MINUTES [place] | | | | | | | OFFICE | | | | | | | OUTPATIENT | | | | | | | VISIT 10 | | | | | | | MINUTES [facility] | | | | | | | IN CLINIC - | | | | | | | HOSP FUP | | | +--------+--------+ + + + + Encounter Details +--------+---------+ + + + | Date | Type | Department | Care Team | Description | +--------+---------+ + + + | 12/09/ | Office | [facility] | Latonia Olson, | Chest pain, | | 2016 | Visit | CARDIOLOGY [address] | MD [address] | unspecified type | | | | [address], | [place] | (Primary Dx) | | | | [place] [address] | [address] | | | | | [phone] | | | +--------+---------+ + + + [...] + + + | Blood Pressure | 126/80 | 12/09/2016 10:25 AM | | | | | PDT | | + + + + + | Pulse | 80 | 12/09/2016 10:25 AM | | | | | PDT | | + + + + + | Temperature | - | - | | + + + + + | Respiratory Rate | 18 | 12/09/2016 10:25 AM | | | | | PDT | | + + + + + | Oxygen Saturation | - | - | | + + + + + | Inhaled Oxygen | - | - | | | Concentration | | | | + + + + + | Weight | 102.5 kg (226 lb) | 12/09/2016 10:25 AM | | | | | PDT | | + + + + + | Height | 188 cm (6' 2") | 12/09/2016 10:25 AM | | | | | PDT | | + + + + + | Body Mass Index | 29.02 | 12/09/2016 10:25 AM | | | | | PDT [...] of this encounter Patient Instructions Patient Instructions Diana Wilson RN - 12/09/2016 10:56 AM PDTPersantine/Lexiscan Myov iew Date: Check-in Time: Where to Check In: Instructions 1. Nothing to eat or drink anything 6 hours prior to Persantine/Lexiscan 2. DO NOT drink caffeine 12 hours prior to the test. 3. DO NOT take any Metoprolol or Nitro SL the night before or the morning of the test. 4. You can take all other medications the morning of the test with a small sip of water. 5. Please bring a list of your current medications with you. Resting Portion of test: Date: Check-in Time: Where to Check In: documented in this encounter Progress Notes Latonia Olson MD - 12/09/2016 10:32 AM PDTFormatting of this note might be different fr om the original. PATIENT NAME: Jose Raul [place] : 1960: AGE: 55 y.o. PRIMARY CARE: Tommy Gomez MD OUTPATIENT FOLLOW UP VISIT Date of Service: 12/09/2016 HISTORY OF PRESENT ILLNESS: Jose Raul Pal[place] is a 55 y.o. male with a history of STEMI. He is being seen today for [facility]. He generally has felt quite well since his discharge. He had one episode 2 days ago where he was lifting stoves off a truck and had severe chest pain. He stopped and this went away. He has not been able to participate in cardiac rehab as yet. [facility] and then they would look at the notes and decide. He cut back his metoprolol based on blood pressure and pulse MEDICAL, SURGICAL, AND PERSONAL HISTORY Past Medical, Surgical, Family, and Social History are reviewed in EPIC. CURRENT PROBLEMS Patient Active Problem List Diagnosis Hepatitis C Restless leg syndrome COPD (chronic obstructive pulmonary disease) Asthma Thyroid disease Hyperlipidemia Diverticulitis Hernia, hiatal Anxiety Emphysema of lung Hypertension Migraine Neuropathy History of tobacco use S/P cervical spinal fusion Thoracic radiculopathy Bilateral arm pain ST elevation myocardial infarction involving right coronary artery Postmyocardial infarction syndrome Hemodynamics: Left ventricular end-diastolic pressure (LVEDP) was 17 mm Hg. There was no gradient a cross the aortic valve. Left Ventriculography: Minimal inferior hypokinesis. EF 60% No MR Left main coronary artery: Normal Left anterior descending coronary artery: Large vessel mid section 20% multiple areas. Large diagonal with no significant disease. Circumflex coronary artery: Non dominant and no obstructive lesions Right coronary artery: Huge dominant vessel 100% occluded with RUPA 0 flow Post intervention: No residual stenosis RUPA 3 flow . PDA has 30-40% stenosis. No residual stenosis and no thrombus proximal to mid RCA CONCLUSIONS: 1. Inferior MN 100% RCA - hypercoagulable state and thrombosis of RCA 2. RENETTA stents to the RCA 3. Normal Left main 4. LAD with 20% mid lesions 5. Non dominant LCX without significant disease 6. Mild inferior hypokinesis - normal EF 7. Calcified "stiff"coronary arteries 8. IVUS of the RCA for stent optimization CLINICAL IMPRESSION AND RECOMMENDATIONS If unable to take Aspirin switch to Effient given thrombosis CURRENT MEDICATIONS Current Outpatient Prescriptions Medication Sig Dispense Refill aspirin 81 MG EC tablet Take 1 tablet by mouth Daily. 30 tablet atorvastatin (LIPITOR) 80 MG tablet Take 1 tablet by mouth nightly. Do not take for a w swinomish 30 tablet 11 busPIRone (BUSPAR) 15 mg tablet Take 15 mg by mouth 2 times daily. calcium carbonate (TUMS) 500 mg chewable tablet Take 1 tablet by mouth Daily as needed for Heartburn. 0 cyclobenzaprine (FLEXERIL) 10 mg tablet Take 10 mg by mouth Twice daily as needed for Muscle spasms. famotidine (PEPCID) 20 mg tablet Take 20 mg by mouth 2 times daily. fluticasone-salmeterol (ADVAIR) 500-50 mcg/puff diskus inhaler Inhale 1 puff into the l ungs Twice Daily. gabapentin (NEURONTIN) 300 mg capsule Take 2 capsules by mouth 3 times daily. (Patient taking differently: Take 900 mg by mouth 3 times daily.) 180 capsule 2 HYDROcodone-acetaminophen (NORCO) 10-325 mg per tablet Take 1-2 tablets by mouth 3 time s daily as needed for Pain. Max of 4 tabs daily ipratropium (ATROVENT HFA) 17 mcg/puff inhaler Inhale 2 puffs into the lungs 4 times da adrian. levalbuterol (XOPENEX HFA) 45 mcg/puff inhaler Inhale 1 puff into the lungs EVERY 4 TO 6 HOURS NEEDED for Wheezing. levalbuterol (XOPENEX) 1.25 mg/3 mL nebulizer solution Take 1 ampule by nebulization 3 times daily. levothyroxine (SYNTHROID, LEVOTHROID) 175 MCG tablet Take 175 mcg by mouth every mornin g (before breakfast). metoprolol tartrate (LOPRESSOR) 50 mg tablet Take 1 tablet by mouth 2 times daily. 60 t ablet 11 nitroglycerin (NITROSTAT) 0.[address] 1 tablet under the tongue every 5 jennifer frieda as needed for Chest pain. 25 tablet 1 omeprazole (PRILOSEC) 20 mg capsule Take 20 mg by mouth 2 times daily. rOPINIRole (REQUIP) 0.5 MG tablet Take 0.5 mg by mouth nightly as needed (restless leg) . ticagrelor (BRILINTA) 90 mg tablet Take 1 tablet by mouth 2 times daily. 60 tablet 1 No current facility-administered medications for this visit. ALLERGIES Allergies Allergen Reactions Doxycycline Anaphylaxis Throat swelling Aspirin Other (See Comments) Ulceration of stomach Adhesive & Tape Rash Albuterol Anxiety Caused severe anxiety. ROS No bleeding Diet changed Not having trouble with the aspirin Struggling with smoking - has not given up OBJECTIVE: PHYSICAL EXAM BP 126/80 mmHg | Pulse 80 | Resp 18 | Ht 1.88 m (6' 2") | Wt 102.513 kg (226 lb) | BMI 29.0 0 kg/m2 Constitutional: No acute distress, non-toxic appearance Eyes: conjunctiva normal. PER HEENT: Oropharynx moist, no pharyngeal exudates. Respiratory: No respiratory distress, normal breath sounds, no rales, no wheezing On O2 Cardiovascular: Normal rate, normal rhythm, no murmurs, no gallops, no rubs. GI: Soft, non distended, normal bowel sounds, nontender, no organomegaly, no mass, no rebo und, no guarding Musculoskeletal: No edema, no tenderness, no deformities. Integument: Well hydrated, no rashes or concerning skin lesions Neurologic: Alert & oriented x 3, no focal deficits noted Psychiatric: Speech and behavior appropriate Recent MRI of back: TECHNIQUE: The following 1.5T MR sequences of the thoracic spine were obtained: 1. Coronal and sagittal T1. 2. Axial and sagittal T2. 3. Sagittal STIR. FINDINGS: Artifact from ACDF hardware extends from C3 through C7, and artifact from posterior hardware extends from C3 through T2. Changes of wide laminectomy extend from C5-6 through T1-2. No cervical central canal stenosis is visible on provided large [id number] sagittal images through the region. Schmorl's nodes are again visible within multiple mid to lower thoracic vertebral endplates. Vertebral height is maintained, without evident fracture. The spinal cord demonstrates normal caliber and signal intensity. The conus medullaris terminates at approximately T12-L1. Disc space narrowing, Modic endplate hyperintensity and a left paramedian disc osteophyte complex persist at C7-T1, without significant stenosis appreciated. A right paramedian/foraminal disc protrusion persists at T2-3, again appearing to moderately narrow the right neural foramen. A mild posterior disc bulge at T3-4 is more pronounced but only mildly narrows the central canal and foramina. Disc space narrowing, Modic endplate hyperintensity and mild posterior disc bulges persist at T4-5, T5-6 and T6-7, again mildly narrowing the central canal and combining with facet hypertrophy to cause mild to moderate left predominant foraminal stenosis. Mild posterior disc bulges are again evident throughout the lower thoracic spine, mildly narrowing the central canal and foramina. Minimal retrolisthesis persists at T11-12. Imaged thoracic cage, paraspinal structures and imaged intrathoracic and upper abdominal structures are unremarkable. IMPRESSION - 1. 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 2. NO VISIBLE CERVICAL CENTRAL CANAL STENOSIS STATUS POST MULTILEVEL DECOMPRESSION AND ANTERIOR AND POSTERIOR FUSION. Dictated and Signed by: Anderson Moore MD Electronically signed: 09/24/2016 2:08 PM . LAB RESULTS reviewed during visit today primarily from [facility]: LIPID Lab Results Component Value Date CHOL 179 11/04/2016 TRIG 197* 11/04/2016 HDL 34 11/04/2016 LDL 106 11/04/2016 CHOLHDL 5.3 11/04/2016 CHEMISTRY Lab Results Component Value Date GLU 121* 11/04/2016 NA 141 11/04/2016 K 4.1 11/04/2016 CL 109 11/04/2016 CO2 25 11/04/2016 CALCIUM 9.0 11/04/2016 ALKPHOS 79 11/03/2016 AST 18 11/03/2016 ALT 25 11/03/2016 BILITOT 0.7 11/03/2016 CREA 0.81 11/04/2016 BUN 12 11/04/2016 HEMATOLOGY Lab Results Component Value Date WBC 12.5* 11/03/2016 HGB 16.1 11/03/2016 HCT 47 11/03/2016 PLT 315 11/03/2016 ASSESSMENT: S/P Inferior STEMI 11/03/16 Episode of chest discomfort while lifting a stove 2 days ago PLAN: Vasodilator Cardiolite [facility] If all OK follow up in 6 months Electronically signed by: Latonia Olson MD [facility] 12/09/2016 Portions of this chart may have been created with [employer] voice recognition software. Occasi onal wrong-word or sound-alike substitutions may have occurred due to the inherent cobos itations of voice recognition software. Please read the chart carefully and recognize, using context, where these substitutions have occurred. documented in this encounter Plan of Treatment Not on filedocumented as of this encounter Results [place] Nuclear Stress Test (Vasodilator) (12/16/2016 2:56 PM PDT) + + | Specimen | + + | | + + + + + | Impressions | Performed At | + + + | 1. Persantine EKG is negative. 2. Abnormal Persantine | [facility] | | Sestamibi myocardial perfusion study with a medium-sized, fixed | [facility] | | defect of a moderate severity of the mid inferior and distal | [facility] | | inferior and apex. This suggests a potential myocardial scar of | - IMAGING | | the right coronary artery territories. Although, inferior wall soft | | | tissue attenuation cannot be completely ruled out. Gated SPECT | | | reveals a normal left ventricular wall thickness and motion. | | | Preserved left ventricular systolic function. LVEF by gated SPECT | | | is 56 %. Signed by: Lulu Terrazas MD [facility] | | | 12/16/2016, 14:57 | | + + + + + ----+ | Narrative | Performed At | + + ----+ | | [facility] | | NUCLEAR MEDICINE STRESS TEST REPORT Patient Name: Jose Raul Palafox | [facility] | | Study Date: No visit date found. Primary Care Provider: Tommy SIMPSON [facility] | | MD Patricia : 1960 Age: 55 y.o. Gender: | - IMAGING | | male CLINICAL HISTORY/DIAGNOSIS: Chest pain/CAD PERSANTINE | | | SESTAMIBI STRESS TESTIndication: chest pain/CAD Procedure: In the | | | supine position, 58.3 mg of Persantine was infused intravenously | | | over 4 minutes. Blood pressure and EKG were monitored every 1 | | | minute. 5 mL of normal saline was utilized to flush the IV line. | | | 2.5 minutes later, 10.5 mCi sestamibi intravenous injection. SPECT | | | myocardial perfusion imaging was acquired with wall motion analysis. | | | Rest imaging was performed using 30 mCi Sestamibi intravenous | | | injection. Repeated SPECT myocardial perfusion imaging was acquired | | | with wall motion analysis. At the end of the procedure, 75 mg of | | | aminophylline was infused intravenously. Hemodynamics: Heart rate | | | baseline 84 beats per minute, peak 103 beats per minute. Blood | | | pressure baseline 127/79 mmHg, peak 101/71 mmHg. EKG baseline | | | underlying sinus rhythm, nonspecific ST-T abnormalities.. Peak | | | unchanged. Side Effects: None. Arrhythmia: None. Persantine | | | Sestamibi Myocardial Perfusion Imaging Result: The Persantine | | | Sestamibi tomographic images, reviewed without the attenuation | | | compensation resolution, revealed a medium-sized, fixed defect of a | | | moderate severity of the mid inferior and distal inferior and apex. | | | Abnormality can be seen in short axis, vertical long axis, and | | | horizontal long axis projections comprising approximately 17% of the | | | left ventricular myocardium. The left ventricular cavity is normal. | | | The rest imaging shows no reversibility of the inferior wall defect. | | | Gated SPECT reveals a normal left ventricular wall thickness | | | and motion. Preserved left ventricular systolic function. LVEF by | | | gated SPECT is 56 %. | | |sinus rhythm, nonspecific ST-T abnormalities.. Peak unchanged. | | | | | |Side Effects: None. | | | | | |Arrhythmia: None. | | | | | |Persantine Sestamibi Myocardial Perfusion Imaging Result: | | | The Persantine Sestamibi tomographic images, reviewed without the | | |attenuation compensation resolution, revealed a medium-sized, fixed defect | | |of a moderate severity of the mid inferior and distal inferior and apex. | | |Abnormality can be seen in short axis, vertical long axis, and horizontal | | |long axis projections comprising approximately 17% of the left ventricular | | |myocardium. The left ventricular cavity is normal. The rest imaging shows | | |no reversibility of the inferior wall defect. | | | | | | Gated SPECT reveals a normal left ventricular wall thickness and motion. | | |Preserved left ventricular systolic function. LVEF by gated SPECT is 56 %. | | | | | | | | + + ----+ + + + + + | Performing | Address | City/State/Zipcode | Phone Number | | Organization | | | | + + + + + | [facility] | [address] | [place] | [phone] | | [facility] | | [id number] | | | - IMAGING | | | | + + + + + documented in this encounter Visit Diagnoses + + | Diagnosis | + + | Chest pain, unspecified type - Primary | + + documented in this encounter
--- OUTSIDE RECORDS SUMMARY | ~2020-03-18 | XMS | Encounter Summary ---
Demographics + + + | Address | [address] | | | [place] [address] | + + + | Home Phone | | + + + | Preferred Language | Unknown | + + + | Marital Status | | + + + | Restorationist Affiliation | Unknown | + + + | Race | White | + + + | Ethnic Group | Not or | + + + Author + + + | Author | [facility] | | | and [place] | + + + | Organization | [facility] | | [...] Team Providers + +------+ + | Care Print Graphic Designer Name | Role | Phone | + +------+ + | Gary Gomez MD | PCP | | + +------+ + Reason for Visit + + + | Reason | Comments | + + + | Follow-up | 4-week post-op | + + + Encounter Details +--------+---------+ + + + | Date | Type | Department | Care Team | Description | +--------+---------+ + + + | 02/21/ | Office | [facility] [place] | Cecil Hensley, | S/P cervical spinal | | 2014 | Visit | NEUROSURGERY [address] | PA-C [address] | fusion (Primary Dx); | | | | [address] | [address] [place] | Cervical radicular | | | | [place], [place] | [place] [address] | pain; Cervicalgia | | | | [address] | [phone] | | | | | [phone] | | | +--------+---------+ + + + Social History + +-------+ +--------+------+ | Tobacco Use | Types | Packs/Day | Years | Date | | | | | Used | | + +-------+ +--------+------+ | Former Smoker | | 0.3 | 10 | | + +-------+ +--------+------+ + +---+---+ + | Smokeless Tobacco: | | | Quit: | | Former User | | | 05/08/20 | | | | | 14 | + +---+---+ + + + +---------+ + | Alcohol Use | Drinks/Week | oz/Week | Comments | + + +---------+ + | Yes | | | rarely | + + +---------+ + + + [...] + + + | Blood Pressure | 147/105 | 02/21/2015 8:31 AM | | | | | PDT | | + + + + + | Pulse | 105 | 02/21/2015 8:31 AM | | | | | PDT | | + + + + + | Temperature | - | - | | + + + + + | Respiratory Rate | 16 | 02/21/2015 8:31 AM | | | | | PDT | | + + + + + | Oxygen Saturation | - | - | | + + + + + | Inhaled Oxygen | - | - | | | Concentration | | | | + + + + + | Weight | 103.4 kg (228 lb) | 02/21/2015 8:31 AM | | | | | PDT | | + + + + + | Height | 188 cm (6' 2") | 02/21/2015 8:31 AM | | | | | PDT | | + + + + + | Body Mass Index | 29.27 | 02/21/2015 8:31 AM | | | | | PDT [...] of this encounter Patient Instructions Patient Instructions Cecil Hensley PA - 02/21/2015 9:05 AM PDTYou may now slowly incr ease your lifting up to 15 pounds as tolerated. Per our discussion, we will hold off on phy sical therapy at this time. Lastly, you will see Dr. Stern in approximately 2 months where a new x-ray will be taken at that time. In the meantime, you can also begin to wean out of your brace as instructed below. SPINE BRACE WEANING PROTOCOL (5 WEEKS) Below are instructions for weaning your brace. You can move through the weeks slower if yo u feel the need to do so, but the overall goal is to get you out of the brace slowly over th e next several weeks. WEEK 1 If you have been using your brace for activities like sleeping, showering, do not use the b race for these activities any longer but continue using it for everything else. WEEK 2 Stop wearing your brace for sitting and short distance walking. You should use the brace f or anything more involved. WEEK 3 Stop using the brace for medium distance walking. You can bend and twist your back but sti ll proceed slowly with these activities. WEEK 4 Stop using the brace for everything but the most difficult tasks. You should now be able to go on long walks and lift more weight as directed. Add more bending and twisting as tolera misael. WEEK 5 Stop using the brace for daily use. I would encourage you to use the brace in the future f or activities that you know might aggravate your back or cause pain. You should still work to strengthen your back and use good technique when pickling grader things and bending. documented in this encounter Progress Notes Cecil Hensley PA - 02/21/2015 9:03 AM PDTFormatting of this note might be different f rom the original. YUNIER Jacinto [address] [facility], [address] [place] [address] FAX: NEUROSURGERY SURGICAL FOLLOW-UP CHIEF COMPLAINT: Chief Complaint Patient presents with Follow-up 4-week post-op HISTORY OF PRESENT ILLNESS: The patient is a 54 y.o. male that had a posterior cervical fu vito from C3-T2 for neck pain along with arm symptoms around 4 weeks ago. He returns and overall is doing fairly well. The patient has no medical complaints or concerns at this coleen e. Patient immediately from the moment I entered the room wanted to address concern that he had regarding apparent statements that were made to his primary care doctor's office regard ing him taking inappropriate amount of pain medication that originated from our office. Zoe driscoll wanted to state emphatically that he is not taking his pain medication and appropriatel y, in fact has only been taking about 5 tablets per day. Patient is under the The patient has been walking as much as possible and has been follow ing their restrictions overall. The patient has had no issues with his surgical site. So f ar issues with swallowing have not been a significant problem. He has not had major issues with hoarseness. He is now completely off of antibiotics in his has been looking at th e incision daily and believes that it is healing well. CURRENT MEDICATIONS: Current Outpatient Prescriptions Medication Sig [...] HISTORY: The patient reports that he has quit smoking. He quit smokeless tobacco use about 9 months ago. He reports that he drinks alcohol. He reports that he uses illicit drugs (Marijuana) a bout twice per week. INTERIM PHYSICAL EXAMINATION: Blood pressure 147/105, pulse 105, resp. rate 16, height 1.88 m (6' 2"), weight 103.42 kg ( 228 lb). Body mass index is 29.26 kg/(m^2). GENERAL: Jose Raul Palafox is in no acute distress with unlabored respirations. HEENT: HEAD/FACE: Normocephalic and atraumatic. There are no areas of recent trauma. SPINE: The patient s incision is healing well. There is not significant erythema or disc harge. EXTREMITIES: No lower extremity edema. NEUROLOGICAL EXAMINATION: MENTAL STATUS: The patient is awake, alert, and oriented. He follows simple and complex commands MOTOR EXAM: Motor strength is 5/5. This is improved from the preoperative exam. SENSORY EXAM: The sensory examination improved from the preoperative exam. REFLEXES: Reflexes are unchanged from his preoperative history and physical. RADIOGRAPHIC REVIEW: The patient s postoperative x-rays show stable instrumentation and alignment and were rev iewed with the patient today. There have been no interval changes since the immediate posto perative films. Complete fusion has not yet occurred, but this is normal and would not be e xpected at this time. ASSESSMENT: Encounter Diagnoses Name Primary? S/P cervical spinal fusion Yes Cervical radicular pain Cervicalgia Past Medical History Diagnosis Date Hepatitis C COPD (chronic obstructive pulmonary disease) (HCC) Restless leg syndrome Asthma Thyroid disease Hyperlipidemia Diverticulitis Hernia, hiatal Anxiety Emphysema of lung (HCC) Hypertension Migraine Neuropathy Thyroid disease History of tobacco use PLAN: Overall, the patient is doing well. The second time worker to recovery will take many months and pe rhaps years. Hopefully, we will see further improvement over time. I increased the patient s activities today allowing 15 pound lifting. I would like the patient to advance slowly with this process and discussed this at length. I would also like the patient to continue with postoperative rehabilitation and to advance with independent or directed therapy as tolerated. So far, things are progressing as planned. I did review every notation, refill request, an d refill response. I do not see any note of the patient taking his medication inappropriate ly or concerns that this was occurring. I cannot speak towards conversations that occur [facility] However, there is no mention of it in the phone and it is unlike ly that any such conversation occurred. I will defer future decisions regarding his pain me dication to his primary care doctor and their office. The patient will follow-up with me in around 8 weeks for re-evaluation. ELECTRONICALLY SIGNED BY: YUNIER Jacinto, 02/21/2015 9:14 documented in this encounter Plan of Treatment Not on filedocumented as of this encounter Results XR CERVICAL SPINE 2 OR 3 VIEWS (04/18/2015 7:30 AM PDT) + + | Specimen | + + | | + + + + + | Narrative | Performed At | + + + | THREE VIEWS CERVICAL SPINE 04/18/2015 7:30 AM CLINICAL HISTORY: | [facility] | | Postop fusion COMPARISON: Cervical radiographs February 20 and January 07 | [facility] | | FINDINGS: Anterior plate and screw and interbody fusion hardware | [facility] | | again extends from C3 through [...] + | [facility], Rad Results In - 04/18/2015 7:45 AM PDT [...] + | [facility] | [address] | [place] | [phone] | | [facility] | | [address] | | | - IMAGING | | | | + + + + + documented in this encounter Visit Diagnoses + + | Diagnosis | + + | S/P cervical spinal fusion - Primary Arthrodesis status | + + | Cervical radicular pain Brachial neuritis or radiculitis nos | + + | Cervicalgia | + + documented in this encounter
--- OUTSIDE RECORDS SUMMARY | ~2020-03-18 | XMS | Encounter Summary ---
Demographics + + + | Address | [address] | | | [place] [address] | + + + | Home Phone | | + + + | Preferred Language | Unknown | + + + | Marital Status | | + + + | Restorationism Affiliation | Unknown | + + + | Race | White | + + + | Ethnic Group | Not or | + + + Author + + + | Author | [facility] | | | and [place] | + + + | Organization | [facility] | | | [...] Team Providers + +------+ + | Care Cash Processing Specialist Name | Role | Phone | + +------+ + | Gary Gomez MD | PCP | | + +------+ + Reason for Visit + +--------+ + | Reason | Onset | Comments | | | Date | | + +--------+ + | Physical | 10/05/ | | | Medicine/rehab | 2017 | | | Appointment | | | + +--------+ + Encounter Details +--------+ + + + + | Date | Type | Department | Care Team | Description | +--------+ + + + + | 10/05/ | Telephone | [facility] | Hussein Padron | Physical | | 2017 | | PHYSIATRY [address] | TMD [address] | Medicine/rehab | | | | [address] | [place], [place] | Appointment | | | | [place], [place] | [address] | | | | | [address] | | | | | | [phone] | | | +--------+ + + + [...] this encounter Miscellaneous Notes Telephone Encounter - Yudi Hurst - 10/11/2016 1:45 PM PDTPatient called back and before he schedules he would like to know visit will be approved by the [facility] sig nitin by Yudi Hurst at 10/11/2016 1:46 PM PDTTelephone Encounter - Ann Johnston - 0 10/05/2016 2:41 PM PDTCalled patient to schedule follow up with either Steff or Dr. Alesia MURCIA to call back. elephone Enco phoebeer - Ann Johnston - 10/05/2016 2:41 PM PDT----- Message from KERRI Cazares at 10/04/2016 15:36 PDT ----- Please offer patient a follow up visit in the office to discuss MRI results and EMG finding s per Dr. Alesia Martel. documented in this encounter Plan of Treatment Not on filedocumented as of this encounter Visit Diagnoses Not on filedocumented in this encounter"
--- OUTSIDE RECORDS SUMMARY | ~2020-03-18 | XMS | Encounter Summary ---
Demographics + + + | Address | [address] | | | [place] [address] | + + + | Home Phone | | + + + | Preferred Language | Unknown | + + + | Marital Status | | + + + | Tenriism Affiliation | Unknown | + + + | Race | White | + + + | Ethnic Group | Not or | + + + Author + + + | Author | [facility] | | | and [place] | + + + | Organization | [facility] | | | [...] Team Providers + +------+ + | Care Grocery Supervisor Name | Role | Phone | + +------+ + | Gary Gomez MD | PCP | | + +------+ + Reason for Visit +--------+--------+ + | Reason | Onset | Comments | | | Date | | +--------+--------+ + | Other | 12/25/ | | | | 2014 | | +--------+--------+ + Encounter Details +--------+ + + + + | Date | Type | Department | Care Team | Description | +--------+ + + + + | 12/25/ | Telephone | [facility] [place] | Aleksander Stern, | Other | | 2014 | | NEUROSURGERY [address] | DO [address] | | | | | [address] | [address] [place], [place] | | | | | [place], [place] | [address] | | | | | [address] | | | | | | [phone] | | | +--------+ + + + [...] +---------+ + | Yes | | | | + + +---------+ + + + + | Sex Assigned at | Date Recorded | | | | + + + | Not on file | | + + + documented as of this encounter Miscellaneous Notes Telephone Encounter - Marilu Tafoya Cert MA - 12/26/2014 2:10 PM PDTGreg spoke with Jose Raul. He has been moved up to January 07 for surgery. MARILU TAFOYA elephone Encounvenu r Marilu Farah Cert MA - 12/26/2014 8:02 AM PDTI attempted to reach Jose Ralu to discuss mo ving his surgery up sooner. No answer. A VM was left. Requested a call back. MARILU TAFOYA elephone Perla key - Aleksander Stern DO - 12/26/2014 6:42 AM PDTIt is probably a progression of his neck di sease. There is nothing he can do other than surgery and taking it easy until then. What abo ut moving him to the 07 of January and moving that big lumbar case to the ? It doesn't lo ok like we have much that day yet. Thanks. elephone Enco unter - Marilu Tafoya Cert MA - 12/25/2014 2:11 PM PDTC/O his right hand "bouncing" and th en will curl up to his forearm. He states it takes quite a bit of strength from him to pull it back down. This started about 6 days ago and it comes and goes. He says the pain start s initially in the shoulder, then down into his forearm and then his hand curls under. He s tates that it is starting to "freak him out a bit" because this has not happened before. Do es this have anything to do with his neck? Is there anything he can do to get it stop? Finesse guadalupe has been scheduled for surgery on February 04. He was originally scheduled on 01/13 but he was re-scheduled. Please advise. MARILU TAFOYA documented in this encounter Plan of Treatment Not on filedocumented as of this encounter Visit Diagnoses Not on filedocumented in this encounter
--- OUTSIDE RECORDS SUMMARY | ~2020-03-18 | XMS | Encounter Summary ---
Demographics + + + | Address | [address] | | | [place] [address] | + + + | Home Phone [...] + + + | Author | [facility] | | | and [place] | + + + | Organization | [facility] | | | [...] Team Providers + +------+ + | Care Fuse Spooler Name | Role | Phone | + +------+ + | Gary Gomez MD | PCP | | + +------+ + Encounter Details +--------+ + + + + | Date | Type | Department | Care Team | Description | +--------+ + + + + | 12/20/ | Abstract | [facility] [place] | Zaki Marshall, | | | 2018 | | PHYSIATRY [address] | PA-C [address] | | | | | [address] | [address] [place] | | | | | [place], [place] | [place] [address] | | | | | [address] | [phone] | | | | | [phone] | | | +--------+ + + + [...]
--- OUTSIDE RECORDS SUMMARY | ~2020-03-18 | XMS | Encounter Summary ---
Demographics + + + | Address | [address] | | | [place] [address] | + + + | Home Phone | | + + + | Preferred Language | Unknown | + + + | Marital Status | | + + + | Hoahaoism Affiliation | Unknown | + + + | Race | White | + + + | Ethnic Group | Not or | + + + Author + + + | Author | [facility] | | | and [place] | + + + | Organization | [facility] | | | [...] Team Providers + +------+ + | Care Change Booth Attendant Name | Role | Phone | + +------+ + | Gary Gomez MD | PCP | | + +------+ + Encounter Details +--------+ + + + + | Date | Type | Department | Care Team | Description | +--------+ + + + + | 01/23/ | Orders Only | [facility] | Denton Barakat | Neurogenic | | 2019 | | NEUROSURGERY [address] | J, MD [address] | claudication | | | | [address] | [address] [place] | (Primary Dx); | | | | [place], [place] | [place] [address] | Osteoarthritis of | | | | [address] | [phone] | spine with | | | | [phone] | | radiculopathy, | | | | | | lumbar region; Low | | | | | | back pain, | | | | | | unspecified back | | | | | | pain laterality, | | | | | | unspecified | | | | | | chronicity, with | | | | | | sciatica presence | | | | | | unspecified | +--------+ + + + + Social [...] filedocumented as of this encounter Visit Diagnoses + + | Diagnosis | + + | Neurogenic claudication - Primary Spinal stenosis, lumbar region, with neurogenic | | claudication | + + | Osteoarthritis of spine with radiculopathy, lumbar region | + + | Low back pain, unspecified back pain laterality, unspecified chronicity, with sciatica | | presence unspecified | + + documented in this encounter"
--- OUTSIDE RECORDS SUMMARY | ~2020-03-18 | XMS | Encounter Summary ---
Demographics + + + | Address | [address] | | | [place] [address] | + + + | Home Phone | | + + + | Preferred Language | Unknown | + + + | Marital Status | | + + + | Worship Affiliation | Unknown | + + + | Race | White | + + + | Ethnic Group | Not or | + + + Author + + + | Author | [facility] | | | and [place] | + + + | Organization | [facility] | | | [...] Team Providers + +------+ + | Care Mason Tender Restoration Labor Name | Role | Phone | + +------+ + | Gary Gomez MD | PCP | | + +------+ + Encounter Details +--------+ + + + + | Date | Type | Department | Care Team | Description | +--------+ + + + + | 10/31/ | Orders Only | [facility] | Aleksander Stern, | Neck pain (Primary | | 2015 | | NEUROSURGERY [address] | DO [address] | Dx) | | | | [address] | [address] [place], [place] | | | | | [place] | [address] | | | | | [address] | | | | | | [phone] | | | +--------+ + + + + Social History + +-------+ +--------+------+ | Tobacco Use | Types | Packs/Day | Years | Date | | | | | Used | | + +-------+ +--------+------+ | Current Every Day | | 0.3 | 10 | | | Smoker | | | | | + +-------+ +--------+------+ + + +---------+ + | Alcohol Use [...] XR CERVICAL SPINE 2 OR 3 VIEWS (11/06/2014 9:37 AM PDT) + + | Specimen | + + | | + + + + + | Narrative | Performed At | + + + | XR CERVICAL SPINE 2 OR 3 VIEWS. 11/06/2014 9:37 AM HISTORY: | [facility] | | neck pain . COMPARISON: MRI cervical spine 02/19/2014 | [facility] | | FINDINGS: [facility] | [facility]. Craniocervical relationship appears maintained. | - IMAGING | | There is anterolisthesis of C2 on C3 seen on upright neutral, flexion, | | | and extension views. There is mild anterolisthesis of C3 on C4 seen | | | on the upright neutral, flexion, and extension views. There is | | | retrolisthesis of C5 on C6 on upright neutral and extension views, | | | which appears to resolve on the flexion views. There is decreased | | | disc height at C5-6 and C6-7, with endplate sclerotic change and | | | osteophyte formation. Facet degenerative change seen predominantly | | | in the mid and lower cervical spine. Prevertebral and paraspinal | | | soft tissues are unremarkable. IMPRESSION - | | | Spondylolisthesis, as described above. Degenerative disc disease and | | | spondylotic change. Dictated and Signed by: Kong John MD | | | Electronically signed: 11/06/2014 10:58 AM | | + + + + + | Procedure Note | + + | [facility], Rad Results In - 11/06/2014 11:01 AM PDT XR CERVICAL SPINE 2 OR 3 VIEWS. | | 11/06/2014 9:37 AMHISTORY: neck pain . COMPARISON: MRI cervical spine | | 02/19/2014FINDINGS:Degenerative change is present at the atlantoaxial articulation. | | Craniocervicalrelationship appears maintained.There is anterolisthesis of C2 on C3 seen | | on upright neutral, flexion, andextension views.There is mild anterolisthesis of C3 on | | C4 seen on the upright neutral, flexion,and extension views.There is retrolisthesis of | | C5 on C6 on upright neutral and extension views,which appears to resolve on the flexion | | views.There is decreased disc height at C5-6 and C6-7, with endplate sclerotic changeand | | osteophyte formation. Facet degenerative change seen predominantly in themid and lower | | cervical spine. Prevertebral and paraspinal soft tissues areunremarkable.IMPRESSION | | -Spondylolisthesis, as described above.Degenerative disc disease and spondylotic | | change.Dictated and Signed by: Kong John MD Electronically signed: 11/06/2014 | | 10:58 AM | |and extension views. | |There is retrolisthesis of C5 on C6 on upright neutral and extension views, | |which appears to resolve on the flexion views. | |There is decreased disc height at C5-6 and C6-7, with endplate sclerotic change | |and osteophyte formation. Facet degenerative change seen predominantly in the | |mid and lower cervical spine. Prevertebral and paraspinal soft tissues are | |unremarkable. | | | | | | | |IMPRESSION - | |Spondylolisthesis, as described above. | |Degenerative disc disease and spondylotic change. | | | |Dictated and Signed by: Kong John MD | | Electronically signed: 11/06/2014 10:58 AM | + + + + + + + | Performing | Address | City/State/Zipcode | Phone Number | | Organization | | | | + + + + + | [facility] | [address] | [place] | [phone] | | [facility] | | [address] | | | - IMAGING | | | | + + + + + documented in this encounter Visit Diagnoses + + | Diagnosis | + + | Neck pain - Primary Cervicalgia | + + documented in this encounter"
--- OUTSIDE RECORDS SUMMARY | ~2020-03-18 | XMS | Encounter Summary ---
Demographics + + + | Address | [address] | | | [place] [address] | + + + | Home Phone | | + + + | Preferred Language | Unknown | + + + | Marital Status | | + + + | Jain Affiliation | Unknown | + + + | Race | White | + + + | Ethnic Group | Not or | + + + Author + + + | Author | [facility] | | | and [place] | + + + | Organization | [facility] | | | and [...] Team Providers + +------+ + | Care Spray Painter Helper Name | Role | Phone | + +------+ + | Gary Gomez MD | PCP | | + +------+ + Reason for Visit + + + | Reason | Comments | + + + | Follow-up | Pre op exam | + + + | Back Pain | | + + + Encounter Details +--------+---------+ + + + | Date | Type | Department | Care Team | Description | +--------+---------+ + + + | 02/14/ | Office | [facility] | Cecil Hensley, | Chronic obstructive | | 2019 | Visit | NEUROSURGERY [address] | PA-C [address] | pulmonary disease, | | | | [address] | [address] [place] | unspecified COPD | | | | [place], [place] | [place] [address] | type (HCC) (Primary | | | | [address] | [phone] | Dx); Spinal stenosis | | | | [phone] | | of lumbar region | | | | | | with neurogenic | | | | | | claudication; ST | | | | | | elevation myocardial | | | | | | infarction (STEMI), | | | | | | unspecified artery | | | | | | ([facility]) | +--------+---------+ + + + Social History [...] + + + | Blood Pressure | 104/62 | 02/14/2019 10:03 AM | | | | | PDT | | + + + + + | Pulse | 84 | 02/14/2019 10:03 AM | | | | | PDT | | + + + + + | Temperature | - | - | | + + + + + | Respiratory Rate | - | - | | + + + + + | Oxygen Saturation | - | - | | + + + + + | Inhaled Oxygen | - | - | | | Concentration | | | | + + + + + | Weight | 101.8 kg (224 lb 8 | 02/14/2019 10:03 AM | | | | oz) | PDT | | + + + + + | Height | 188 cm (6' 2") | 02/14/2019 10:03 AM | | | | | PDT | | + + + + + | Body Mass Index | 28.82 | 02/14/2019 10:03 AM | | | | | PDT [...] of this encounter Patient Instructions Patient Instructions Jaclyn Dickerson Cert MA - 02/14/2019 10:00 AM PDT It was a pleasure to see you today. Here is what we discussed. If you do need a refill on pain medications or muscle relaxers after you get home please ma ke sure to give us plenty of notice so that we have time to mail the prescription to you. O ur phone number is [phone]. You can also contact your primary care provider to see if they would be willing to prescribe your pain medications and muscle relaxer's. If you do wo rk this out with your primary care provider please let us know. We only manage pain medications for up to 84 days after surgery. If you need additional re fills after 84 days you will need to work that our with your primary care provider or pain m anagement. If anything in your health status changes between now and surgery please let us know. Please remember not to take any anti-inflammatories within 7 days of surgery. This include s ibuprofen, Motrin, Advil, aspirin, naproxen, and Aleve. Blood thinner and aspirin will need to be stopped 7 days prior to surgery on 02/26/19. You may have a small glass of water on the morning of surgery to take your normal morning m edications. Otherwise, nothing to eat or drink after midnight. Here are some resources that you can explore so that you can learn more about pain and copi ng for optimal pain management. Surgical Pain Handout: https://www.ariadna.ri.gov/Portals/1/Documents/9220/177944-CqndycyLiuavxqxcdcg-KmpgubuaNshv.pdf Persistent Pain Toolkit for Patients and Families: Includes education on pain in general (multiple languages) and education on pain after inju ry or surgery. Relaxation videos practice techniques to quiet pain. https://[place]/our-services/p/zyqomwmsgt-ucthegqkqk-exoc/vdzhtwdttx-bjuy-hvf lkit/zbgqots-zat-ooxjjkqs-toolkit/akjdqq-sppg-nfkzbsyyl/ Back surgery will look something like this: -1-3 days in the hospital, spend the first month lifting no more than 5 lbs, no bending, li fting above your head, or twisting. - About first 5 days fairly minimal activity such as couch, bed, dinner table. Then afterwa rds get up every 30 minutes for a 1-2 minute walk. -Listen to your body and rest when you need to rest. Expect to be tired after surgery. -No driving for the first few weeks to 1 month as long as you have your strength back and a re not taking pain medication then you could drive. -You would need help with things like tying your shoes, getting socks on and what not to pr event you from bending over for that first month at least. -Recovery time would be 6-12 months depending on bone fusion and healing. You will have so me waxing and waning of symptoms. The pain will vary in intensity and vary from day to day. As time moves on the frequency and intensity of the pain will slowly go away. -Lastly, if you have any questions, please feel free to give our office a call. Otherwise, we will see you on the morning of surgery. documented in this encounter Progress Notes Cecil Hensley PA-C - 02/14/2019 10:00 AM PDT Cecil Hensley PA-C [address] [facility], [address] [place] [address] PHONE: FAX: NEUROSURGERY HISTORY AND PHYSICAL EXAMINATION CHIEF COMPLAINT: Chief Complaint Patient presents with Follow-up Pre op exam Back Pain HISTORY OF PRESENT ILLNESS: The patient is a 58 y.o. male that presents for pre operative exam for his upcoming right sided lumbar decompression from L2-L5 scheduled with Dr. Barakat on 02/26/2019. He was seen previously with the complaint of back and right leg symptoms that began several years ago. He had a fluoroscopically-guided right intraarticular hip injection as well as a right L5-S 1 transforaminal epidural injection on 01/08/2019 and states that after the injection he had some relief for about a week but the pain is now starting to worsen again to the point it wa s prior to the injection. His main concern is his lower back pain radiating down the right l eg. He states that he is also starting to have some symptoms down his left leg as well that have been getting worse. He and his state that they stopped smoking 01/15/2019. He is using constant oxygen. Mean s been on oxygen since neck surgery. Will stop the oxygen if he is watching a movie. He is a lso using nitroglycerin occasionally, and isosorbide daily since his heart attack and stent placement in 2016. He has had no interval changes in the severity or character of his symptoms since his last visit. He denies any shortness of breath or chest pain. He denies any fever or chills. He has no open sores on his body and has not had any antibiotics recently. PAST MEDICAL HISTORY: Past Medical History: Diagnosis Date Acute bronchitis Acute upper respiratory infection, unspecified Allergic rhinitis, unspecified Anxiety Asthma CAD in [place] artery Cervical radiculopathy at C6 Right on EMG/NCS in 01/04 Chronic bronchitis with COPD (chronic obstructive pulmonary disease) (HCC) Chronic low back pain Chronic neck pain COPD (chronic obstructive pulmonary disease) (HCC) Diverticulitis Emphysema of lung (HCC) Gastroenteritis Headache Hepatitis C Hernia, hiatal History of drug use IV drug use prior to 2006 History of tobacco use Hyperlipidemia Hypertension Hypothyroidism Lumbar radiculopathy Migraine Muscle spasm Neck pain Neuropathy Other cervical disc displacement, unspecified cervical region Oxygen dependent 2 liters at all times Peptic ulcer disease Restless leg syndrome Spondylosis without myelopathy or radiculopathy, site unspecified Thoracic radiculopathy 08/17/2016 Thyroid disease Thyroid disease Tobacco use PAST SURGICAL HISTORY: Past Surgical History: Procedure Laterality Date CARDIAC CATHERIZATION N/A 11/03/2016 Procedure: CV Cor Angio; Surgeon: Latonia Olson MD; Location: [facility] CV LAB CARDIAC CATHERIZATION N/A 11/03/2016 Procedure: CV Cor Angio; Surgeon: Latonia Olson MD; Location: [facility] CV LAB CARDIAC CATHERIZATION N/A 12/23/2016 Procedure: CV LHC; Surgeon: Latonia Olson MD; Location: [facility] CV LAB CERVICAL SPINE SURGERY N/A 01/07/2015 Procedure: C3-4, C4-5, C5-6, C6-7, Anterior Cervical Discectomy w/ Fusion and Plating, Pos terior Fusion at C3-4, C4-5, C5-6, C6-7, C7-T1, and T1-2; Surgeon: Aleksander Stern DO; Loc ation: [facility] MAIN OR CHOLECYSTECTOMY 2010 Dr. Skaggs FINGER FRACTURE SURGERY Left 2003 middle finger crush injury; tip replacement FINGER SURGERY Left 1986 thumb attachment KNEE ARTHROSCOPY Right ROTATOR CUFF REPAIR Left 1995 ULNAR TUNNEL RELEASE Left 1995 CURRENT MEDICATIONS: Current Outpatient Medications Medication Sig Dispense Refill aspirin 81 MG EC tablet Take 1 tablet by mouth Daily. 30 tablet atorvaSTATin (LIPITOR) 80 MG tablet Take 1 tablet by mouth nightly. Do not take for a w chuloonawick 30 tablet 11 buPROPion (WELLBUTRIN SR) 150 [...] metoprolol tartrate (LOPRESSOR) 100 mg tablet Take 1 tablet by mouth 2 times daily. 90 tablet 3 montelukast (SINGULAIR) 10 mg tablet Take 10 [...] this visit. ALLERGIES: Allergies Allergen Reactions Doxycycline Anaphylaxis, Nausea Only, Dermatitis and Headache Throat swelling HTN Adhesive & Tape Rash Albuterol Anxiety Caused severe anxiety. Aspirin Other (See Comments) Ulceration of stomach Latex Itching and Rash SOCIAL HISTORY: The patient reports that he quit smoking about 4 weeks ago. His smoking use included cigar ettes. He has a 5.00 pack-year smoking history. He has never used smokeless tobacco. He repo rts that he drinks about 1.2 oz of alcohol per week. He reports that he has current or past drug history. Drug: Marijuana. Frequency: 2.00 times per week. He uses edibles rather than smoking marijuana FAMILY HISTORY: Family History Problem Relation Age [...] Child Heart attack Brother Heart attack Brother REVIEW OF SYSTEMS: GENERALLY: No fever, + night sweats, + anemia, + fatigue, no recent profound weight smith es. EYES: No eye problems, no impaired sight, + use of corrective lenses, no eye injury, no do uble vision, no transient blindness. EARS, NOSE, AND THROAT: No changes in taste or smell, no hearing difficulty, + ringing in the ears, no ear drainage, no ear injury, + dizziness, no voice changes, no difficulty swall owing, + significant snoring, no sleep apnea/CPAP, no sinus problems, + major dental work. NEUROLOGICALLY: Please see the review of systems discussed above in the history of present illness. In addition, the patient has numbness/pain of arms, numbness/pain of legs, awake with numbness/pain, weakness, muscle aching, pain in neck, pain in back, headaches, and numb ness of face. PSYCHIATRIC: no depression, + difficulty sleeping, no anxiety, no bipolar disorder. CARDIOVASCULAR: No heart attacks, no heart murmur, + heart fluttering, no chest pain, no a nkle swelling. LUNG DISEASE: + shortness of breath, no cough, no tuberculosis, no bloody cough, + asthma, + emphysema/COPD. GASTROINTESTINAL: No bowel disease, no nausea or vomiting, no rectal bleeding, no constipa tion, no fecal stool incontinence, no liver/gallbladder disease, no abdominal pain, no ulcer s. KIDNEY DISEASE: No urinary frequency, no painful or difficult urination, no urinary incont inence, no bladder problems, no impotence. ENDOCRINE: No diabetes, + thyroid disease, no osteopenia or osteoporosis, no breast draina ge. SKIN: No breast lumps, no skin disease or skin changes, no rashes/itches. HEMATOLOGIC/LYMPHATIC: No enlarged lymph nodes, no easy or unusual bleeding, no personal h istory of cancer. RHEUMATOLOGIC: + joint pain/arthritis, no rheumatoid arthritis. PHYSICAL EXAMINATION: Blood pressure 104/62, pulse 84, height 1.88 m (6' 2"), weight 101.8 kg (224 lb 8 oz). Body mass index is 28.82 kg/m. GENERAL: Jose Raul Palafox is in no acute distress with unlabored respirations. He does a ppear uncomfortable throughout the exam today. HEENT: Head: Normocephalic/atraumatic with no areas of recent trauma. Eyes: Normal sclerae without icterus. Ears: No drainage or tenderness. Nasopharynx: Clear without drainage. Oropharynx: Clear without erythema. Nearly edentulous NECK (ANTERIOR): Supple and without palpable masses. CHEST: Mild bilateral late expiratory wheezes. HEART: Regular rate and rhythm without murmurs. ABDOMEN: Soft, non-tender, non-distended, and without palpable masses. The patient is obes e. EXTREMITIES: No cyanosis, clubbing, or edema. Distal pulses are palpable. NEUROLOGICAL EXAM: MENTAL STATUS: He is awake, alert, and oriented. He follows simple and complex commands. His speech is fluent, he comprehends speech well, and he repeats well. 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 CRANIAL NERVES: II: Acuity is intact. [place] are full to confrontation. III, IV, : The pupils are reactive. Extraocular movements are intact. No ptosis is note d. V: Facial sensation is intact and symmetric. VII: Facial movements are symmetric. VIII: Hearing is intact bilaterally. IX, X: The uvula and palate move appropriately. XI: Shrug is equal bilaterally. XII: Tongue protrusion is midline. MOTOR EXAM: (5 IS NORMAL) * Indicates pain limited MUSCLE/ MOVEMENT: RIGHT LEFT Hip Flexion 5 5 Hip Extension 5 5 Knee Flexion 5 5 Knee Extension 5 5 Dorsiflexion 5 5 Extensor Hallicus Longus 5 5 Plantarflexion 5 5 SENSORY EXAM: Sensory exam shows no diminished sensation to light touch or pain throughout the upper and lower extremities. REFLEXES: (2 OR 2+ IS NORMAL) REFLEX: RIGHT LEFT PATELLAR 2with spread 2with spread ACHILLES 2 2 PLANTAR DOWNGOING DOWNGOING GAIT: Gait is steady. PERIPHERAL NERVE/MISC: Tinel is negative at the wrists and elbows bilaterally. Phalen is negative. Straight leg raise is negative bilaterally. Marcelino's test of the hips is negative bilaterally. TEST AND RADIOGRAPHIC REVIEW: His imaging was reviewed in detail today during the visit. The lumbar MRI from 10/31/2018 sh ows mild canal narrowing at L4-5 in [id number] canal narrowing at L3-4. Axial section s were not obtained of L2-3 but measuring canal diameter on the sagittal images suggests alex t he is at or very slightly over 10 mm. ASSESSMENT: Outpatient Morphine Equivalent Daily Dose (MEDD) 02/16/19 and after 15-30 mg MEDD Order Name Dose Route Frequency Maximum MEDD HYDROcodone-acetaminophen (NORCO) 5-325 mg per tablet 1-2 tablet Oral 3 TIMES DAILY PRN 1 5-30 mg MEDD Total Potential Daily Morphine Equivalence 15-30 mg MEDD Calculation Information HYDROcodone-acetaminophen (NORCO) 5-325 mg per tablet HYDROcodone-acetaminophen 5-325 mg Tabs: single dose of 5-10 mg of opioid * 3 doses per da y * morphine equivalence factor of 1 = 15-30 mg MEDD PEG Pain screening tool: Total score: 7.67 (02/14/19 1000) 1) Symptomatic lumbar spinal stenosis 2) recent cessation of smoking 3) episodic persisten t angina pectoris following myocardial infarction and stent placement 4) chronic obstructive pulmonary disease requiring supplemental oxygen at rest NEUROSURGICAL DIAGNOSES: Encounter Diagnoses Name Primary? Spinal stenosis of lumbar region with neurogenic claudication Chronic obstructive pulmonary disease, unspecified COPD type (HCC) Yes ST elevation myocardial infarction (STEMI), unspecified artery (HCC) GENERAL DIAGNOSES: Past Medical History: Diagnosis Date Acute bronchitis Acute upper respiratory infection, unspecified Allergic rhinitis, unspecified Anxiety Asthma CAD in [place] artery Cervical radiculopathy at C6 Right on EMG/NCS in 01/04 Chronic bronchitis with COPD (chronic obstructive pulmonary disease) (HCC) Chronic low back pain Chronic neck pain COPD (chronic obstructive pulmonary disease) (HCC) Diverticulitis Emphysema of lung (HCC) Gastroenteritis Headache Hepatitis C Hernia, hiatal History of drug use IV drug use prior to 2006 History of tobacco use Hyperlipidemia Hypertension Hypothyroidism Lumbar radiculopathy Migraine Muscle spasm Neck pain Neuropathy Other cervical disc displacement, unspecified cervical region Oxygen dependent 2 liters at all times Peptic ulcer disease Restless leg syndrome Spondylosis without myelopathy or radiculopathy, site unspecified Thoracic radiculopathy 08/17/2016 Thyroid disease Thyroid disease Tobacco use PLAN: Jose Raul Palafox presented today for re-evaluation of an ongoing back issue and his neuro logic problems. The patient has symptomatic lumbar spinal stenosis. The patient has progressive symptoms d espite non-operative measures. I had a lengthy discussion with him about his options for care including surgical and non-s urgical options. In discussing the surgical options, we discussed in detail his options for a right L2-5 lum bar decompression. He understands that in most instances the recovery from surgery can be lengthy and sometime s difficult, and specifically volunteered that he understood the low likelihood of complete pain relief. We discussed the risks including paralysis bleeding infection and of cou rse the ever present specter of worsened pain after surgery. I also pointed out to him that he needs to see both his primary care physician and his card iologist prior to surgery authorization and scheduling, as I'm concerned about the persisten ce of angina. He would like to proceed with the right L2-L5 lumbar decompression scheduled for [facility]/26/[address] [facility] [address] Barakat. I, Cecil Hensley PA-C, personally performed the services described in this documentati on, as scribed by ALTON Ruiz in my presence, and it is both accurate and complete. Cecil Hensley PA-C 02/16/19 Portions of the HPI and plan were pulled forward from 01/22/2019. Information has been added and updated during the office visit today 02/16/19. ELECTRONICALLY SIGNED BY: Cecil Hensley PA-C, 02/16/2019 8:54 documented in this encounter Plan of Treatment Not on filedocumented as of this encounter Visit Diagnoses + + | Diagnosis | + + | Chronic obstructive pulmonary disease, unspecified COPD type (HCC) - Primary | + + | Spinal stenosis of lumbar region with neurogenic claudication Spinal stenosis, lumbar | | region, with neurogenic claudication | + + | ST elevation myocardial infarction (STEMI), unspecified artery (HCC) | + + documented in this encounter
--- OUTSIDE RECORDS SUMMARY | ~2020-03-18 | XMS | Encounter Summary ---
Demographics + + + | Address | [address] | | | [place] [address] | + + + | Home Phone | | + + + | Preferred Language | Unknown | + + + | Marital Status | | + + + | Temple Affiliation | Unknown | + + + | Race | White | + + + | Ethnic Group | Not or | + + + Author + + + | Author | [facility] | | | and [place] | + + + | Organization | [facility] | | | [...] Team Providers + +------+ + | Care Deicer Inspector Pneumatic Name | Role | Phone | + +------+ + | Gary Gomez MD | PCP | | + +------+ + Reason for Visit + + + | Reason | Comments | + + + | Follow-up | back pain | + + + Evaluate & Treat (Routine) +--------+--------+ + + + + | Status | Reason | Specialty | Diagnoses / | Referred By | Referred To | | | | | Procedures | Contact | Contact | +--------+--------+ + + + + | Closed | | Neurosurgery | Diagnoses | Patricia, | Jarred, | | | | | Other | Delwyn | Aleksander Jewell DO | | | | | cervical | MD Garry | [address] | | | | | disc | [address] | [address] | | | | | displacement | [place] | [place] | | | | | , | [address] | [id number] Phone: | | | | | unspecified | [place] | [phone] | | | | | cervical | [id number] | Fax: | | | | | region | Phone: | [phone] | | | | | | [phone] | | | | | | | Fax: | | | | | | | [phone] | | +--------+--------+ + + + + Encounter Details +--------+---------+ + + + | Date | Type | Department | Care Team | Description | +--------+---------+ + + + | 12/14/ | Office | [facility] | Cecil Hensley Santosh, | Thoracic | | 2017 | Visit | NEUROSURGERY [address] | PA-C [address] | radiculopathy | | | | [address] | [address] [place] | (Primary Dx) | | | | [place], [place] | [place] [address] | | | | | [address] | [phone] | | | | | [phone] | | | +--------+---------+ + + + [...] + + + | Blood Pressure | 122/82 | 07/07/2017 10:59 AM | | | | | PST | | + + + + + | Pulse | 73 | 07/07/2017 10:59 AM | | | | | PST | | + + + + + [...] + + + + | Weight | 98.8 kg (217 lb 13 | 07/07/2017 10:59 AM | | | | oz) | PST | | + + + + + | Height | 188 cm (6' 2") | 07/07/2017 10:59 AM | | | | | PST | | + + + + + | Body Mass Index | 27.97 | 07/07/2017 10:59 AM | | | | | PST | | + + + + + [...] Instructions Patient Instructions Cecil Hensley PA - 07/07/2017 10:30 AM PSTPlease follow up with Brian Padron urgently. I've spoken with his staff and expect that they will call you by to morrow documented in this encounter Progress Notes Cecil Hensley PA - 07/07/2017 10:30 AM PSTFormatting of this note might be different f rom the original. YUNIER Jacinto [address] [facility] [place], [address] [place] [address] FAX: NEUROSURGERY FOLLOW-UP CHIEF COMPLAINT: Chief Complaint Patient presents with Follow-up back pain HISTORY OF PRESENT ILLNESS: The patient is a 56 y.o. male that had a anterior and posterio r cervical fusion by me for neck pain, radiculopathy, and myelopathy. His surgery was done in November of 2014. Patient was doing well the first month until he fell. Since then he has com plained about pain eminating from the top of his thoracic spine and radiating around bilater ally around the posterior aspcet of his rib cage and continuing around to the front. This pa in is quite severe and on average is rated around an 8 out of 10. Simple activities such as sweeping his floor will cause this to get worse in a very short period. He is taking 900 m g of gabapentin 3 times a day. He is also taking 5 mg of hydrocodone 3 times a day which he feels is doing absolutely nothing. Patient was seen by me for this same problem in May 2016. I then referred the patient to Dr. Padron ordered an MRI. There was phone communication about scheduling a follow- up but this never happened. Patient's home situation is greatly affected and more complicated by his who had a hip replacement and ended up with an infection. This has placed in a normal increased burden o n Mr. Palafox and he is currently having a very difficult time. PAST MEDICAL HISTORY: Past Medical History: Diagnosis Date Anxiety Asthma COPD (chronic obstructive pulmonary disease) (HCC) Diverticulitis Emphysema of lung (HCC) Hepatitis C Hernia, hiatal History of tobacco use Hyperlipidemia Hypertension Migraine Neuropathy (HCC) Other cervical disc displacement, unspecified cervical region Restless leg syndrome Thoracic radiculopathy 08/17/2016 Thyroid disease Thyroid disease PAST SURGICAL HISTORY: Past Surgical History: Procedure Laterality Date CARDIAC CATHERIZATION N/A 11/03/2016 Procedure: CV Cor Angio; Surgeon: Latonia Olson MD; Location: [facility] CV LAB CARDIAC CATHERIZATION N/A 11/03/2016 Procedure: CV Cor Angio; Surgeon: Latonia Olson MD; Location: [facility] CV LAB CARDIAC CATHERIZATION N/A 12/23/2016 Procedure: CV LHC; Surgeon: Latonia Olson MD; Location: [facility] CV LAB CERVICAL SPINE SURGERY N/A 01/07/2015 Procedure: C3-4, C4-5, C5-6, C6-7, Anterior Cervical Discectomy w/ Fusion and Plating, Pos terior Fusion at C3-4, C4-5, C5-6, C6-7, C7-T1, and T1-2; Surgeon: Aleksander Stern DO; Loc ation: [facility] MAIN OR CHOLECYSTECTOMY 2010 Dr. Skaggs FINGER FRACTURE SURGERY Left 2003 middle finger crush injury; tip replacement FINGER SURGERY Left 1986 thumb attachment KNEE ARTHROSCOPY Right ROTATOR CUFF REPAIR Left 1995 ULNAR TUNNEL RELEASE Left 1995 CURRENT MEDICATIONS: Current Outpatient Prescriptions Medication Sig Dispense Refill aspirin 81 MG EC tablet Take 1 tablet by mouth Daily. 30 tablet atorvaSTATin (LIPITOR) 80 MG tablet Take 1 tablet by mouth nightly. Do not take for a w [place] 30 tablet 11 busPIRone (BUSPAR) 15 mg tablet Take 15 mg by mouth 2 times daily. calcium carbonate (TUMS) 500 mg chewable tablet Take 1 tablet by mouth Daily as needed for Heartburn. cyclobenzaprine (FLEXERIL) 10 mg tablet Take 10 [...] daily. Three tablets three times a day HYDROcodone-acetaminophen (NORCO) 5-325 mg per tablet Take [...] mornin g (before breakfast). metoprolol tartrate (LOPRESSOR) 100 mg tablet Take 0.5 tablets by mouth 2 times daily. montelukast (SINGULAIR) 10 mg tablet Take 10 mg by mouth Daily. nicotine (NICORETTE) 4 mg gum Take 4 mg by mouth as needed for Nicotine Craving. Chew a nd tuck 1 piece every 1-2 hours for weeks 1-6 then every 2-4 hours for weeks 7-9 then every 4-8 hours weeks 10-12 (max 24 pieces/day). nitroglycerin (NITROSTAT) 0.[address] [...] Allergies Allergen Reactions Doxycycline Anaphylaxis Throat swelling Adhesive & Tape Rash Albuterol Anxiety Caused severe anxiety. Aspirin Other (See Comments) Ulceration of stomach Latex Itching and Rash SOCIAL HISTORY: The patient reports that he has been smoking Cigarettes. He has a 5.00 pack-year smoking history. He has never used smokeless tobacco. He reports that he drinks alcohol. He reports that he uses drugs, including Marijuana, about 2 times per week. FAMILY HISTORY: Family History Problem Relation Age of Onset Heart disease Father Asthma Father Emphysema Father Thyroid disease Father goiter Arthritis Father Heart failure Father Heart disease Mother Diabetes Mother Arthritis Mother Bleeding problems Mother Gout Mother Hypertension Mother Heart failure Mother Other (see comment) Mother lung prob Arthritis Paternal Grandfather Arthritis Paternal Grandmother Hypertension [...] Allergic rhinitis Sister Thyroid disease Sister Sleep Apnea Sister Diabetes Sister Elevated lipids Sister Hypertension Sister Other (see comment) Sister seasonal affective disorder Liver disease Sister PTSD Sister Other (see comment) Sister sjorgren's syndrome,Diverticulosis,Myasthenia Gravis GERD Sister Heart failure Sister Asthma Sister Heart failure Maternal Aunt No Known Problems Child No Known Problems Child INTERIM PHYSICAL EXAMINATION: Blood pressure 122/82, pulse 73, height 1.88 m (6' 2"), weight 98.8 kg (217 lb 13 oz). Body mass index is 27.97 kg/m. GENERAL: Jose Raul Palafox is in obvious discomfort at today's visit. Patient is observed crossing his arms and putting his hands in his armpits trying to squeeze and put pressure w hich he feels either reduce his pain or distracts from the severity of the pain. Towards th e end of our visit, patient is observed being in tears. HEENT: HEAD/FACE: Normocephalic and atraumatic. There are no areas of recent trauma. CHEST: Clear to ausculation without crackles or wheeze. HEART: Regular rate and rhythm without murmurs. SPINE: The patient s incisions are healed well. EXTREMITIES: No lower extremity edema. NEUROLOGICAL EXAMINATION: MENTAL STATUS: The patient is awake, alert, and oriented. He follows simple and complex commands MOTOR EXAM: Motor strength is 5/5. SENSORY EXAM: The sensory examination is normal with no evidence of cervical radiculopathy to his arms. REFLEXES: Reflexes are unchanged from his preoperative history and physical. RADIOGRAPHIC REVIEW: The patient s postoperative x-rays show stable instrumentation and alignment and were rev iewed with the patient today during the visit. There has been increased arthrodesis since t he patient s last x-ray which was also reviewed for comparison. Review of MRI of his thoracic spine from September 2016 shows no significant bulging disks that affect the spinal canal. Between T2 and T3 there is asymmetry in the foramina and what pos sibly represents disc material in the right lateral recess causing foraminal stenosis that i s moderate to severe when comparing it to the other side. This is most appreciated on the T 2 images slice 7 of 29. ASSESSMENT: Encounter Diagnosis Name Primary? Thoracic radiculopathy Yes Past Medical History: Diagnosis Date Anxiety Asthma COPD (chronic obstructive pulmonary disease) (HCC) Diverticulitis Emphysema of lung (HCC) Hepatitis C Hernia, hiatal History of tobacco use Hyperlipidemia Hypertension Migraine Neuropathy (HCC) Other cervical disc displacement, unspecified cervical region Restless leg syndrome Thoracic radiculopathy 08/17/2016 Thyroid disease Thyroid disease PLAN: Overall, the patient is doing poorly. This pain is obviously significantly affecting this patient's quality of life. There are multiple factors which are complicating the situation. His 's circumstances are certainly a complicating factor. However, patient had a hear t attack recently and ended up receiving a stent. Following this, one month later, another stent was placed. First and foremost, I do not see any obvious surgical targets. The gino inal stenosis on the right between T2 and T3 is the only possible target. However, patient' s complaint is of equal radicular pain bilaterally. Furthermore, his recent cardiac situati on would likely preclude him from any surgical procedures. This may even affect what Dr. Kurt walker can do for the patient. Nonetheless, I have asked that Dr. Padron try and see this patient in the next week in an urgent situation given the severity of his situation. I also encouraged the patient to reach out and asked for help from friends or family. I ca n see where patient has significant pride and I emphasize with him in this regard. However, I also reminded him how much he would want his other friends to help him if they were in hi s situation With the above factors in mind, we will follow-up with this patient on an as-needed basis a nd be happy to help with Dr. Padron in any way we can. ELECTRONICALLY SIGNED BY: YUNIER Jacinto, 07/07/2017 12:19 documented in this encounter Plan of Treatment Not on filedocumented as of this encounter Visit Diagnoses + + | Diagnosis | + + | Thoracic radiculopathy - Primary Thoracic or lumbosacral neuritis or radiculitis, | | unspecified | + + documented in this encounter
--- OUTSIDE RECORDS SUMMARY | ~2020-03-18 | XMS | Encounter Summary ---
Demographics + + + | Address | [address] | | | [place] [address] | + + + | Home Phone [...] Team Providers + +------+ + | Care Emergency Department Manager Name | Role | Phone | + +------+ + | Gary Gomez MD | PCP | | + +------+ + Reason for Visit + + + | Reason | Comments | + + + | Procedure | BUE NCS/EMG | + + + Evaluate & Treat (Routine) +--------+ + + + + + | Status | Reason | Specialty | Diagnoses / | Referred By | Referred To | | | | | Procedures | Contact | Contact | +--------+ + + + + + | Closed | Specialty | Physical | Diagnoses | Sucharda, | Destin, | | | Services | Medicine and | Numbness | Cecil Frost, | MD Etienne | | | Required | Rehabilitatio | and tingling | PA-C [address] | | | | n | in both | [address] | [address] | | | | | hands | [address] | [place] | | | | | Paroxysmal | [place], | [address] Phone: | | | | | dyskinesia | [place] [address] | [phone] | | | | | Procedures | Phone: | Fax: | | | | | AL MOTOR | [phone] | [phone] | | | | | &/SENS 3-4 | Fax: | | | | | | NRV CNDJ | [phone] | | | | | | PRECONF | | | | | | | ELTRODE LIMB | | | | | | | AL MOTOR | | | | | | | &/SENS 5-6 | | | | | | | NRV CNDJ | | | | | | | PRECONF | | | | | | | ELTRODE LIMB | | | | | | | AL EMG, | | | | | | | NEEDLE, TWO | | | | | | | LIMBS AL | | | | | | | NEEDLE EMG | | | | | | | EA EXTREMITY | | | | | | | W/PARASPINL | | | | | | | AREA | | | | | | | LIMITED AL | | | | | | | MOTOR &/SENS | | | | | | | 13/> NRV | | | | | | | CNDJ PRECONF | | | | | | | ELTRODE | | | | | | | LIMB AL | | | | | | | NEEDLE EMG | | | | | | | EA EXTREMTY | | | | | | | W/PARASPINL | | | | | | | AREA | | | | | | | COMPLETE | | | | | | | 06/28>PEND | | | | | | | [place] | | | +--------+ + + + + + Encounter Details +--------+ + + + + | Date | Type | Department | Care Team | Description | +--------+ + + + + | 08/17/ | Procedure | [facility] | Etienne Weir, | S/P cervical spinal | | 2017 | visit | PHYSIATRY [address] | [address] | fusion (Primary Dx); | | | | [address] | [address] [place], | Bilateral arm pain; | | | | [place] | [place] [address] | Bilateral carpal | | | | [id number] | [phone] | tunnel syndrome; | | | | [phone] | | Entrapment of left | | | | | | ulnar nerve at | | | | | | elbow; Cervical | | | | | | radiculopathy | +--------+ + + + + Social [...] + + + | Blood Pressure | 122/91 | 08/17/2016 3:02 PM | | | | | PST | | + + + + + | Pulse | 84 | 08/17/2016 3:02 PM | | | | | PST | | + + + + + | Temperature | - | - | | + + + + + | Respiratory Rate | 16 | 08/17/2016 3:02 PM | | | | | PST | | + + + + + | Oxygen Saturation | - | - | | + + + + + | Inhaled Oxygen | - | - | | | Concentration | | | | + + + + + | Weight | 104.3 kg (230 lb) | 08/17/2016 3:02 PM | | | | | PST | | + + + + + | Height | 188 cm (6' 2") | 08/17/2016 3:02 PM | | | | | PST | | + + + + + | Body Mass Index | 29.53 | 08/17/2016 3:02 PM | | | | | PST | [...] + + documented as of this encounter Procedure Etienne Quiñonez MD - 08/22/2016 4:34 PM PSTAssociated Order(s): EMG STUDYProcedure(s) : EMG STUDYPre-Procedure Diagnose(s): S/P cervical spinal fusion; Bilateral arm painPost-Pro cedure Diagnose(s): Bilateral carpal tunnel syndrome; Entrapment of left ulnar nerve at elbo w; Cervical radiculopathy [facility] Mus[facility], Sports [facility] Spine, Physiatry [address] [address] Test Date: 08/17/2016 Patient Name: Jose Raul Palafox : 1960 Physician: Dr. Weir MR #: [id number] Sex: Male Referring Physician: Cecil Hensley PA-C HISTORY: Mr. Palafox is a 55 year-old right-handed man who was referred to the EMG lab to evaluate hi s right greater than left hand/arm pain. Patient reports that he was previously diagnosed w ith bilateral cervical radiculopathies and underwent cervical decompression. But his sympto ms have been largely the same with numbness in his small/ring fingers on the right and a freezing feeling of the thumb/index/long fingers bilaterally. He also repors pain doesn the arm (and lots of elbow pain). He also reports a history of left ulnar release surgery a t the elbow which was done for small/ring finger numbness and improved after surgery. In ex am there is generally reduced strength with giveaway, reflex s are symmetric. Anti Sensory Summary Table Site NR Peak (ms) Norm Peak (ms) P-T Amp (V) Norm P-T Amp Site1 Site2 Delta-P (ms) Dist (cm) Joon (m/s) Norm Joon (m/s) Left Median Anti Sensory (2nd Digit) Wrist *4.0 <3.6 31.4 >10 Wrist 2nd Digit 4.0 14.0 *35 >39 Right Median Anti Sensory (2nd Digit) Wrist 3.6 <3.6 13.3 >10 Wrist 2nd Digit 3.6 14.0 39 >39 Left Ulnar Anti Sensory (5th Digit) Wrist 3.7 <3.7 18.7 >15.0 Wrist 5th Digit 3.7 14.0 38 >38 Right Ulnar Anti Sensory (5th Digit) Wrist 3.3 <3.7 15.2 >15.0 Wrist 5th Digit 3.3 14.0 42 >38 Motor Summary Table Site NR Onset (ms) Norm Onset (ms) O-P Amp (mV) Norm O-P Amp Site1 Site2 Delta-0 (ms) Dist (cm) Joon (m/s) Norm Joon (m/s) Left Median Motor (Abd Poll Brev) Wrist 3.8 <4.2 8.2 >5 Elbow Wrist 4.8 25.0 52 >50 Elbow 8.6 7.8 Right Median Motor (Abd Poll Brev) Wrist 4.0 <4.2 8.3 >5 Elbow Wrist 4.8 26.0 54 >50 Elbow 8.8 8.3 Left Ulnar Motor (Abd Dig Minimi) Wrist 4.0 <4.2 9.3 >3 B Elbow Wrist 3.4 19.0 56 >53 B Elbow 7.4 9.0 A Elbow B Elbow 1.3 7.0 54 >53 A Elbow 8.7 9.7 Right Ulnar Motor Run #1 (Abd Dig Minimi) Wrist 3.5 <4.2 9.0 >3 B Elbow Wrist 3.5 20.0 57 >53 B Elbow 7.0 8.1 A Elbow B Elbow 1.8 8.0 *44 >53 A Elbow 8.8 7.3 Right Ulnar Motor Run #2 (FDI) Wrist 4.6 12.6 >3 B Elbow Wrist 3.9 20.0 *51 >53 B Elbow 8.5 11.7 A Elbow B Elbow 2.1 8.0 *38 >53 A Elbow 10.6 11.3 Comparison Summary Table Site NR Peak (ms) Norm Peak (ms) P-T Amp (V) Site1 Site2 Delta-P (ms) Norm Delta (ms) Right Median/Radial Dig I Comparison (Digit 1 - 10cm) Median *3.3 <2.9 13.2 Median Radial 0.4 <0.4 Radial *2.9 <2.8 7.2 Right Median/Ulnar Dig IV Comparison (Digit 4 - 14cm) Median Wr *4.2 <3.3 11.2 Median Wr Ulnar Wr *0.6 <0.4 Ulnar Wr *3.6 <3.3 10.6 Left Median/Ulnar Palm Comparison (Wrist - 8cm) Median Palm *2.5 <2.2 31.5 Median Palm Ulnar Palm *0.4 <0.3 Ulnar Palm 2.1 <2.2 27.0 Right Median/Ulnar Palm Comparison (Wrist - 8cm) Median Palm *2.5 <2.2 16.1 Median Palm Ulnar Palm *0.6 <0.3 Ulnar Palm 1.9 <2.2 11.5 EMG Side Muscle Nerve Root Ins Act Fibs Psw Amp Dur Poly Recrt Int Pat Comment Right Deltoid Axillary C5-6 Nml Nml Nml *Incr Nml 0 *Reduced Nml Right Biceps Musculocut C5-6 Nml Nml Nml Nml Nml 0 Nml Nml Right Triceps Radial C6-7-8 Nml Nml Nml Nml *>12ms 0 *Reduced Nml few fasic Right PronatorTeres Median C6-7 Nml Nml Nml *Incr Nml 0 *Reduced Nml crd Right 1stDorInt Ulnar C8-T1 Nml Nml Nml Nml Nml 0 Nml Nml Left Deltoid Axillary C5-6 Nml Nml Nml Nml Nml 0 Nml Nml Left Biceps Musculocut C5-6 Nml Nml Nml Nml Nml 0 Nml Nml Left Triceps Radial C6-7-8 Nml Nml Nml Nml Nml 0 Nml Nml Left PronatorTeres Median C6-7 Nml Nml Nml Nml Nml 0 Nml Nml Left 1stDorInt Ulnar C8-T1 Nml Nml Nml Nml Nml 0 Nml Nml FINDINGS: 1. Left median SNAP demonstrated mildly prolonged peak latency and normal amplitude. 2. Right median SNAP demonstrated borderline peak latency and normal amplitude 5. Left ulnar and right ulnar SNAPs were normal. 6. Right median comparative sensory index was mildly prolonged (comparison of median to uln ar/radial peak latencies) 7. Left median comparative sensory index was mildly prolonged. 8. Left median, right median, left ulnar CMAP s were normal. 9. Right ulnar-ADM and ulnar FDI CMAP s demonstrated moderately reduced conduction veloci ties across the elbow. 10. Monopolar needle EMG of the selected muscles in the right upper extremity demonstrated normal insertional activity, with a few fasciculations in the triceps and CRD s in the pro nator teres. On activation, there was reduced recruitment of increased amplitude motor unit s in the deltoid and pronator teres; reduced recruitment of increased duration motor units i n the triceps; and normal recruitment of normal morphology motor units in all other muscles tested. 11. Monopolar needle EMG of the selected muscles in the left upper extremity was normal. IMPRESSION: This is an abnormal study. There is electrodiagnostic evidence of: 1. Bilateral mild median mononeuropathies across the wrist (i.e. bilateral carpal tunnel sy ndrome) 2. Mild right ulnar neuropathy across the elbow. 3. Chronic right C5, C6 and possibly C7 root dysfunction (eg radiculopathy). But there was no evidence of active denervation. Thank you for allowing me to perform neurodiagnostic testing on your patient. If you have a ny further questions or comments, please do not hesitate to call. Dr. Weir Diplomate, [place] [employer]. documented in thi s encounter Plan of Treatment Not on filedocumented as of this encounter Procedures + +--------+ + + + | Procedure Name | Priori | Date/Time | Associated Diagnosis | Comments | | | ty | | | | + +--------+ + + + | EMG STUDY | Routin | 08/22/2016 | S/P cervical | Results for this | | | e | 4:35 PM | spinal fusion | procedure are in the | | | | PST | Bilateral arm pain | results section. | + +--------+ + + + documented in this encounter Results EMG Study (08/22/2016 4:35 PM PST) + + + | Narrative | Performed At | + + + | Etienne Weir MD 08/22/2016 16:35 [facility] | | | [facility] Mus[facility], [facility] and Spine, Physiatry [place] | | | Medical [address] [address] Ph: | | | Test Date: 08/17/2016 | | | Patient Name: Jose Raul Palafox : 1960 Physician: Dr. Weir | | | MR #: [id number] Sex: Male Referring Physician: Cecil Hensley, | | | PA-C HISTORY: Mr. Palafox is a 55 year-old right-handed man who | | | was referred to the EMG lab to evaluate his right greater than left | | | hand/arm pain. Patient reports that he was previously diagnosed | | | with bilateral cervical radiculopathies and underwent cervical | | | decompression. But his symptoms have been largely the same with | | | numbness in his small/ring fingers on the right and a | | | | | | freezing feeling | | | of the thumb/index/long fingers bilaterally. He also repors pain | | | doesn the arm (and lots of elbow pain). He also reports a history | | | of left ulnar release surgery at the elbow which was done for | | | small/ring finger numbness and improved after surgery. In exam | | | there is generally reduced strength with giveaway, reflex | | | | | | s are symmetric. Anti Sensory Summary Table Site NR Peak (ms) | | | Norm Peak (ms) P-T Amp ( V) Norm P-T Amp Site1 Site2 Delta-P (ms) | | | Dist (cm) Joon (m/s) Norm Joon (m/s) Left Median Anti Sensory (2nd | | | Digit) Wrist *4.0 <3.6 31.4 >10 Wrist 2nd Digit 4.0 14.0 *35 | | | >39 Right Median Anti Sensory (2nd Digit) Wrist 3.6 <3.6 13.3 | | | >10 Wrist 2nd Digit 3.6 14.0 39 >39 Left Ulnar Anti Sensory (5th | | | Digit) Wrist 3.7 <3.7 18.7 >15.0 Wrist 5th Digit 3.7 14.0 38 | | | >38 Right Ulnar Anti Sensory (5th Digit) Wrist 3.3 <3.7 15.2 | | | >15.0 Wrist 5th Digit 3.3 14.0 42 >38 Motor Summary Table Site | | | NR Onset (ms) Norm Onset (ms) O-P Amp (mV) Norm O-P Amp Site1 Site2 | | | Delta-0 (ms) Dist (cm) Joon (m/s) Norm Joon (m/s) Left Median Motor | | | (Abd Poll Brev) Wrist 3.8 <4.2 8.2 >5 Elbow Wrist 4.8 25.0 52 | | | >50 Elbow 8.6 7.8 Right Median Motor (Abd Poll | | | Brev) Wrist 4.0 <4.2 8.3 >5 Elbow Wrist 4.8 26.0 54 >50 Elbow | | | 8.8 8.3 Left Ulnar Motor (Abd Dig Minimi) Wrist | | | 4.0 <4.2 9.3 >3 B Elbow Wrist 3.4 19.0 56 >53 B Elbow 7.4 | | | 9.0 A Elbow B Elbow 1.3 7.0 54 >53 A Elbow 8.7 9.7 | | | Right Ulnar Motor Run #1 (Abd Dig Minimi) Wrist 3.5 | | | <4.2 9.0 >3 B Elbow Wrist 3.5 20.0 57 >53 B Elbow 7.0 8.1 A | | | Elbow B Elbow 1.8 8.0 *44 >53 A Elbow 8.8 7.3 | | | Right Ulnar Motor Run #2 (FDI) Wrist 4.6 12.6 >3 B Elbow | | | Wrist 3.9 20.0 *51 >53 B Elbow 8.5 11.7 A Elbow B Elbow 2.1 | | | 8.0 *38 >53 A Elbow 10.6 11.3 Comparison | | | Summary Table Site NR Peak (ms) Norm Peak (ms) P-T Amp ( V) Site1 | | | Site2 Delta-P (ms) Norm Delta (ms) Right Median/Radial Dig I | | | Comparison (Digit 1 - 10cm) Median *3.3 <2.9 13.2 Median Radial | | | 0.4 <0.4 Radial *2.9 <2.8 7.2 Right Median/Ulnar Dig | | | IV Comparison (Digit 4 - 14cm) Median Wr *4.2 <3.3 11.2 Median | | | Wr Ulnar Wr *0.6 <0.4 Ulnar Wr *3.6 <3.3 10.6 Left | | | Median/Ulnar Palm Comparison (Wrist - 8cm) Median Palm *2.5 | | | <2.2 31.5 Median Palm Ulnar Palm *0.4 <0.3 Ulnar Palm 2.1 <2.2 | | | 27.0 Right Median/Ulnar Palm Comparison (Wrist - 8cm) Median | | | Palm *2.5 <2.2 16.1 Median Palm Ulnar Palm *0.6 <0.3 Ulnar | | | Palm 1.9 <2.2 11.5 EMG Side Muscle Nerve Root Ins | | | Act Fibs Psw Amp Dur Poly Recrt Int Pat Comment Right Deltoid | | | Axillary C5-6 Nml Nml Nml *Incr Nml 0 *Reduced Nml Right Biceps | | | Musculocut C5-6 Nml Nml Nml Nml Nml 0 Nml Nml Right Triceps | | | Radial C6-7-8 Nml Nml Nml Nml *>12ms 0 *Reduced Nml few fasic | | | Right PronatorTeres Median C6-7 Nml Nml Nml *Incr Nml 0 *Reduced Nml | | | crd Right 1stDorInt Ulnar C8-T1 Nml Nml Nml Nml Nml 0 Nml Nml | | | Left Deltoid Axillary C5-6 Nml Nml Nml Nml Nml 0 Nml Nml Left | | | Biceps Musculocut C5-6 Nml Nml Nml Nml Nml 0 Nml Nml Left Triceps | | | Radial C6-7-8 Nml Nml Nml Nml Nml 0 Nml Nml Left PronatorTeres | | | Median C6-7 Nml Nml Nml Nml Nml 0 Nml Nml Left 1stDorInt Ulnar | | | C8-T1 Nml Nml Nml Nml Nml 0 Nml Nml FINDINGS: 1. Left median | | | SNAP demonstrated mildly prolonged peak latency and normal | | | amplitude. 2. Right median SNAP demonstrated borderline peak latency | | | and normal amplitude 5. Left ulnar and right ulnar SNAPs were | | | normal. 6. Right median comparative sensory index was mildly | | | prolonged (comparison of median to ulnar/radial peak latencies) 7. | | | Left median comparative sensory index was mildly prolonged. 8. Left | | | median, right median, left ulnar CMAP | | | | | | s were normal. 9. Right ulnar-ADM and ulnar FDI CMAP | | | | | | s demonstrated moderately reduced conduction velocities across the | | | elbow. 10. Monopolar needle EMG of the selected muscles in the right | | | upper extremity demonstrated normal insertional activity, with a | | | few fasciculations in the triceps and CRD | | | | | | s in the pronator teres. On activation, there was reduced | | | recruitment of increased amplitude motor units in the deltoid and | | | pronator teres; reduced recruitment of increased duration motor | | | units in the triceps; and normal recruitment of normal morphology | | | motor units in all other muscles tested. 11. Monopolar needle | | | EMG of the selected muscles in the left upper extremity was normal. | | | IMPRESSION: This is an abnormal study. There is | | | electrodiagnostic evidence of: 1. Bilateral mild median | | | mononeuropathies across the wrist (i.e. bilateral carpal tunnel | | | syndrome) 2. Mild right ulnar neuropathy across the elbow. 3. | | | Chronic right C5, C6 and possibly C7 root dysfunction (eg | | | radiculopathy). But there was no evidence of active denervation. | | | Thank you for allowing me to perform neurodiagnostic testing on | | | your patient. If you have any further questions or comments, please | | | do not hesitate to call. | | | Destin Schwartzomate, [place] [employer] and | | | Rehabilitation. | | + + + documented in this encounter Visit Diagnoses + + | Diagnosis | + + | S/P cervical spinal fusion - Primary Arthrodesis status | + + | Bilateral arm pain Pain in limb | + + | Bilateral carpal tunnel syndrome Carpal tunnel syndrome | + + | Entrapment of left ulnar nerve at elbow | + + | Cervical radiculopathy Brachial neuritis or radiculitis nos | + + documented in this encounter
--- OUTSIDE RECORDS SUMMARY | ~2020-03-18 | XMS | Encounter Summary ---
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 Name | Role | Phone | [...] + + + | | | | Diagnoses | | Yuval | | | | | Neurogenic | | Denton Aguayo MD | | | | | petr | | Jayson W | | | | | | | [address] | | | | | Osteoarthrit | | [address] [place] | | | | | is of spine | | [place] | | | | | with | | [phone] Phone: | | | | | radiculopath | | [phone] | | | | | y, lumbar | | Fax: | | | | | region Low | | [phone] | | | | | back pain, | | | | | | | unspecified | | | | | | | back pain | | | | | | | laterality, | | | | | | | unspecified | | | | | | | chronicity, | | | | | | | with | | | | | | | sciatica | | | | | | | presence | | | | | | | unspecified | | | | | | | Procedures | | | | | | | | | | | | | | LAMINEC/FACE | | | | | | | TECT/FORAMIN | | | | | | | ,LUMBAR 1 | | | | | | | SEG NV | | | | | | | LAMINEC/FACE | | | | | | | TECT/FORAMIN | | | | | | | ,EACH ADDNL | | | | | | | Right | | | | | | | L2-L3, | | | | | | | L3-L4, L4-L5 | | | | | | | | | | | | | | Decompressiv | | | | | | | e | | | | | | | Laminectomy | | | +--------+--------+ + + + + Encounter Details +--------+ + + + + | Date | Type | Department | Care Team | Description | +--------+ + + + + | 02/26/ | Hospital | [facility] | Denton Barakat | Neurogenic | | 2019 - | Encounter | [facility] | MD Olivier [address] | claudication; | | | | [address] [place] | [address] [place] | Osteoarthritis of | | 02/28/ | | [place] [address] | [place] [address] | spine with | | 2018 | | [phone] | [phone] | radiculopathy, | | | | | [...] | | | | | | unspecified; Other | | | | | | spondylosis with | | | | | | [...] + + + | Blood Pressure | 127/73 | 02/28/2019 7:26 AM | | | | | PDT | | + + + + + | Pulse | 80 | 02/28/2019 9:40 AM | | | | | PDT | | + + + + + | Temperature | 36.1 C (97 F) | 02/28/2019 7:26 AM | | | | | PDT | | + + + + + | Respiratory Rate | 16 | 02/28/2019 9:40 AM | | | | | PDT | | + + + + + | Oxygen Saturation | 97% | 02/28/2019 9:40 AM | [address] | | | | PDT | | + + + + + | Inhaled Oxygen | - | - | | | Concentration | | | | + + + + + | Weight | 101.9 kg (224 lb | 02/26/2019 6:20 AM | | | | 10.4 oz) | PDT | | + + + + + | Height | 189.9 cm (6' 2.75") | 02/26/2019 6:20 AM | | | | | PDT | | + + + + + | Body Mass Index | 28.27 | 02/26/2019 6:20 AM | | | | | PDT [...] + + documented as of this encounter Discharge Summaries Cecil Hensley PA-C - 02/28/2019 8:30 AM PDT DISCHARGE SUMMARY Pt. Name/Age/: Jose Raul Palafox 58 y.o. 1960 Date of Admission: 02/26/2019 Date of Discharge: 02/28/2019 Admitting Physician: Denton Barakat, * PCP: Tommy Gomez Discharging Physician: Cecil Hensley PA-C Primary Discharge Dx: Back pain with spinal stenosis and lumbar radiculopathy Secondary Discharge Dx: Patient Active Problem List Diagnosis Hepatitis C Restless leg syndrome COPD (chronic obstructive pulmonary disease) Asthma Hypothyroidism Hyperlipidemia Diverticulitis Hernia, hiatal Anxiety Emphysema of lung Hypertension Migraine Neuropathy Tobacco user S/P cervical spinal fusion Thoracic radiculopathy Bilateral arm pain NSTEMI, initial episode of care Postmyocardial infarction syndrome Unstable angina STEMI (ST elevation myocardial infarction) ST elevation myocardial infarction involving right coronary artery CAD in [place] artery Other spondylosis with radiculopathy, lumbar region Acute bronchitis Acute cholecystitis Arthralgia of lower leg Benign essential hypertension Tinnitus Brachial neuritis Burn injury Current tear of medial cartilage or meniscus of knee Dermatitis due to drug taken internally Disturbance of salivary secretion Diverticular disease of colon Encounter for issue of repeat prescription Other and unspecified noninfectious gastroenteritis and colitis Cervicalgia Hemorrhage of rectum and anus Herniation of intervertebral disc without myelopathy Steatosis of liver Loose body of knee Low back pain Nuclear senile cataract Peptic ulcer Polyp of colon Retinal drusen Sciatica Sensorineural hearing loss, bilateral Thoracic or lumbosacral neuritis or radiculitis Neurogenic claudication Osteoarthritis of spine with radiculopathy, lumbar region Low back pain, unspecified back pain laterality, unspecified chronicity, with sciatica presence unspecified Chronic hypoxic respiratory failure. Reason for Admission (Brief): He was seen previously with the complaint of back and right leg symptomsthat began several years ago. He had a [...] smoking 01/15/2019. He is using constant oxygen. Bonilla s been on oxygen since neck surgery. Will stop the oxygen if he is watching a movie. He is a lso using nitroglycerin occasionally, and isosorbide daily since his heart attack and stent placement in 2017. Hospital Course, including Complications: The patient was admitted for planned surgery. He had a lumbar decompression completed with out complication. After surgery, there were no events. He mobilized well. The patient was discharged home and will follow-up as an outpatient. There were no cardiac issues, pulmonary issues, evidence of DVT or infection. Prescription Monitoring Program checked prior to discharge. Preoperative MEDD 30 MEDD at discharge= Outpatient Morphine Equivalent Daily Dose (MEDD) 02/28/19 and after 45-135 mg MEDD Order Name Dose Route Frequency Maximum MEDD oxyCODONE (ROXICODONE) 5 mg tablet 5-15 mg Oral EVERY 4 HOURS PRN 45-135 mg MEDD Total Potential Daily Morphine Equivalence 45-135 mg MEDD Calculation Information oxyCODONE (ROXICODONE) 5 mg tablet oxyCODONE 5 mg Tabs: single dose of 5-15 mg * 6 doses per day * morphine equivalence facto r of 1.5 = 45-135 mg MEDD based on use and adjustments of medications to achieve adequate management of symptoms dur ing hospital course. Patient has been counseled on expectation to taper the use of medications and has been prov ided education on the risks, benefits, and alternatives to medications. Naloxone is ordered due to risk of opiate overdose Medications Reconciled upon Discharge are: Discharge Medications New Medications Details lactulose 10 g/15 mL solution Take 30 mLs by mouth 2 times daily. For constipation methocarbamol 750 mg tablet Take 1-2 tablets by mouth every 6 hours as needed for Muscle spasms. aka: ROBAXIN oxyCODONE 5 mg tablet Take 1-3 tablets by mouth every 4 hours as needed for Pain. exempt: recent major spine lavelle amanda. Patient may take a maximum of 12 tabs in 24 hours. Patient had a pharmacy consult duri ng his hospital stay. aka: ROXICODONE Changed Medications Details cyclobenzaprine 10 mg tablet Take 0.5-1 tablets by mouth 3 times daily as needed for Muscle spasms. What changed: how much to take when to take this reasons to take this aka: FLEXERIL Unchanged Medications Details aspirin 81 MG EC tablet Take 1 tablet by mouth Daily. atorvaSTATin 80 MG tablet Take 1 tablet by mouth nightly. Do not take for a week aka: LIPITOR buPROPion 150 mg 12 hr tablet Take 1 tablet by mouth 2 times daily. aka: WELLBUTRIN SR busPIRone 15 mg tablet Take 15 mg by mouth 2 times daily. aka: BUSPAR DULoxetine [address] capsule Take 60 mg by mouth nightly. aka: CYMBALTA famotidine 20 mg tablet Take 20 mg by mouth 2 times daily. aka: PEPCID fluticasone-salmeterol 500-50 mcg/puff diskus inhaler Inhale 1 puff into the lungs Twice Daily. aka: ROSALBA AWAD gabapentin 300 mg capsule Take 900 mg by mouth 3 times daily. Three tablets three times a day aka: NEURONTIN guaiFENesin 600 mg 12 hr tablet Take 600 mg by mouth 2 times daily. aka: MUCINEX ipratropium 17 mcg/puff inhaler Inhale 2 puffs into the lungs 4 times daily. aka: ATROVENT HFA isosorbide mononitrate 60 mg ER tablet Take 30 mg by mouth every morning. levalbuterol 1.25 mg/3 mL nebulizer solution Take 1 ampule by nebulization 3 times daily. aka: XOPENEX levalbuterol 45 mcg/puff inhaler Inhale 1 puff into the lungs EVERY 4 TO 6 HOURS NEEDED for Wheezing. aka: XOPENEX HFA levothyroxine 175 MCG tablet Take 175 mcg by mouth every morning (before breakfast). aka: SYNTHROID medical marijuana as needed (to sleep). aka: CANNABIS metoprolol tartrate 100 mg tablet Take 1 tablet by mouth 2 times daily. aka: LOPRESSOR montelukast 10 mg tablet Take 10 mg by mouth Daily. aka: SINGULAIR nitroglycerin 0.[address] 1 tablet under the tongue every 5 minutes as needed for Chest pain. aka: NITROSTAT omeprazole 20 mg capsule Take 20 mg by mouth 2 times daily. aka: priLOSEC oxygen Inhale 2 L into the lungs continuous. prasugrel 10 mg Tabs Take 1 tablet by mouth Daily. aka: EFFIENT rOPINIRole 0.5 MG tablet Take 0.5 mg by mouth nightly as needed (restless leg). aka: REQUIP triamcinolone 0.1% cream Apply topically 2 times daily. aka: EDU Discontinued Medications HYDROcodone-acetaminophen 5-325 mg per tablet aka: NORCO Condition on Discharge: Stable Follow-Up Plans: Follow-up: 6 days. . Follow-up with primary care physician as needed. Diet: Resume home diet Activity: Continue to follow guidelines and precautions as previously discussed. Bracing: No brace is required OK to resume use of asa on 03/05/2019 Electronically signed by: Cecil Hensley, 02/28/2019 9:15 [facility] documented in thi s encounter Discharge Instructions Instructions Cecil Hensley PA-C - 02/28/2019Discharge Instructions for Lumbar Surgery You had a lumbar decompression surgery. During this procedure, your doctor unpinches some of your nerves in your spine. Here s what you need to know about home care following a spi nal decompression operation. OK to resume use of asa on 03/05/2019 Activity Arrange your household to keep the items you need within reach. Remove electrical cords, throw rugs, and anything else that may cause you to fall. Use a walkeror handrails until your balance, flexibility, and strength improve. And re member to ask for help from others when you need it. Free up your hands so that you can use them to keep balance. Use a erin pack, apron, or pockets to carry things. Be sure not to carry too much at once. Don t bend or twist at the waist, or raise your hands over your head for the first two weeks after your surgery. Don t lift anything heavier than 5 pounds for the first four weeks after surgery. Don t sit for more than30 to 45 minutes at a time. Take frequent short walks. They a re the wayne to your recovery. As your back feels better please gradually increase the distanc e you walk as discussed with your provider. Don t drive until your doctor says it s OK. And never drive while you are taking opi oid pain medication. Nap if you are tired, but don t stay in bed all day. Use chairs with arms. The arms make it easier for you to stand up and sit down. If you have not yet received instructions about physical therapy, ask your doctor about them. Incision care Check your incision daily for redness, tenderness, or drainage. Don t soak your wound in water (no hot tubs, bathtubs, swimming pools) until your doct or says it s OK. If you have steristrips in place (small thin tape dressing), these will wear off in 7-10 days. If they have not come off, please remove them on day 14 after surgery. Your wound does not need to be covered after the steristrips come off and it is recommen ded to get them wet and wash them with soap and water. Other home care Use nonslip bath mats, grab bars, an elevated toilet seat, and a shower chair in your ba throom. Take your medication exactly as directed. If you smoke, stop! This will be one of the most important things you can do to help you recover from surgery. A brace is uncommon but if you were prescribed one, wear your brace as directed by your doctor. We recommend taking over the counter medications for bowel function or use the prescribe d medication or both until your bowel function has returned to normal. Follow-up Most patients will be seen approximately 4 weeks after surgery unless you have sutures o r duy in which case you will be seen in about 2 weeks. X-rays are not generally needed at these visits. You may get emails from [facility] about your clinical results for the next several years. Palma catherine complete this as it lets us know how you are doing and what we can do to help more. When to seek medical attention Call 911 right away if you have any of the following: Chest pain, shortness of breath, or n ew issues with your bowels or bladder that were not present previously. Otherwise call us for recommendations for any of the following: Fever with temperature of greater than 101.4 degrees Fahrenheit Increasing drainage, redness, or significant swelling of your incision or incisions Opening of the incision Major and prolonged increase in pain or numbness in the legs Worsening strength in your leg or legs When in Doubt There are a number of recommendations and guidance for your postoperative journey in the Pr eparing for Back Surgery booklet that you were provided either in [facility] or at the hosp [facility]. Please use it as a guide as you heal. The goal is to get you back to a life with les s pain, and we hope this will help you with that goal. documented in this encounter Medications at Time of Discharge [...] + + + +---------+ + + | DULoxetine | Take 60 mg by mouth | | 0 | | | | (CYMBALTA) [address] | nightly. | | | | | | capsule [...] + + + +---------+ + + | guaiFENesin | Take 600 mg by mouth | | 0 | | | | (MUCINEX) 600 mg 12 | 2 times daily. | | | | | | hr tablet | | | | | | + + + +---------+ + + | ipratropium | Inhale 2 puffs into | | 0 | | | | (ATROVENT HFA) 17 | the lungs 4 times | | | | | | mcg/puff inhaler | daily. | | | | | + + + +---------+ + + | isosorbide | Take 30 mg by mouth | | 0 | | | | mononitrate 60 mg ER | every morning. | | | | | | tablet [...] + + + +---------+ + + | medical marijuana | as needed (to | | 0 | | | | (CANNABIS) | sleep). | | | | | + + + +---------+ + + | metoprolol | Take 1 tablet by | 90 | 3 | 02/09/20 | | | tartrate (LOPRESSOR) | mouth 2 times daily. | tablet | | 19 | | | 100 mg tablet | | [...] +---------+ + + | cyclobenzaprine | Take 0.5-1 tablets | 90 | 3 | 02/29/20 | | | (FLEXERIL) 10 mg | by mouth 3 times | tablet | | 19 | 0 | | tablet | daily as needed for | | | | | | | Muscle spasms. | | | | | + [...] + + + +---------+ + + | lactulose 10 g/15 | Take 30 mLs by mouth | 240 mL | 2 | 02/29/20 | | | mL solution | 2 times daily. For | | | 19 | 9 | | | constipation | | | | | + + + +---------+ + + | methocarbamol | Take 1-2 tablets by | 90 | 3 | 02/29/20 | | | (ROBAXIN) 750 mg | mouth every 6 hours | tablet | | 19 | 9 | | tablet | as needed for Muscle | | | | | | | spasms. | | | | | + + + +---------+ + + | oxyCODONE | Take 1-3 tablets by | 120 | 0 | 02/29/20 | | | (ROXICODONE) 5 mg | mouth every 4 hours | tablet | | 19 | 9 | | tablet | as needed for Pain. | | | | | | | exempt: recent major | | | | | | | spine surgery. | | | | | | | Patient may take a | | | | | | | maximum of 12 tabs | | | | | | | in 24 hours. Patient | | | | | | | had a pharmacy | | | | | | | consult during his | | | | | | | hospital stay. | | | | | + + + +---------+ + + documented as of this encounter Progress Notes Cecil Hensley PA-C - 02/28/2019 8:14 AM PDT [facility] NEUROSURGERY PROGRESS NOTE PATIENT NAME: Jose Raul Palafox AGE: 58 y.o. DATE OF SERVICE: 02/28/2019 8:16 S: Patient is doing well this AM. He received a pharmacy consult yesterday. He is much bet ter this AM and there have been no significant changes to his oxycodone. He has no other C/C and says he is ready to DC home this AM. The patient has been voiding and had a bowel movement. O: CURRENT MEDICATIONS: Current Facility-Administered Medications Medication Dose Route Frequency Provider Last Rate Last Dose acetaminophen (TYLENOL) tablet 650 mg 650 mg Oral 6 times per day Adenike Queen rmD 650 mg at 02/28/19 0428 albuterol 5 mg/mL concentrated nebulizer solution 2.5 mg 2.5 mg Nebulization RT Q4H NV N Cecil Hensley PA-C albuterol 90 mcg/puff inhaler 2-4 puff 2-4 puff Inhalation Q4H PRN Palma Walsh atorvaSTATin (LIPITOR) tablet 80 mg 80 mg Oral Nightly Cecil Hensley PA-C 80 mg at 02/27/192010 bisacodyl (DULCOLAX) suppository 10 mg 10 mg Rectal Daily PRN Cecil Hensley PA-C budesonide (PULMICORT) 0.5 mg/2 mL nebulizer solution 0.5 mg 0.5 mg Nebulization RT BI D Cecil Hensley PA-C 0.5 mg at 02/27/192108 buPROPion (WELLBUTRIN SR) 12 hr tablet 150 mg 150 mg Oral BID Cecil Hensley PA-C 150 mg at 02/27/192017 busPIRone (BUSPAR) tablet 15 mg 15 mg Oral BID Cecil Hensley PA-C 15 mg at 02/27 calcium carbonate (TUMS) chewable tablet 1,000 mg 1,000 mg Oral Q2H PRN Cecil chowdhury PA-C cyclobenzaprine (FLEXERIL) tablet 10 mg 10 mg Oral Q8H PRN Cecil Hensley PA-C 10 mg at 02/27/191901 diphenhydrAMINE (BENADRYL) injection 12.5 mg 12.5 mg Intravenous Q4H PRN Cecil kingston PA-C Or diphenhydrAMINE (BENADRYL) tablet 25 mg 25 mg Oral Q4H PRN Cecil Hensley PA-C Or diphenhydrAMINE (BENADRYL) 12.5 mg/5 mL liquid 25 mg 25 mg Oral Q4H PRN Cecil chowdhury PA-C docusate sodium (COLACE) capsule 100 mg 100 mg Oral BID Cecil Hensley PA-C 100 m g at 02/27/192009 DULoxetine (CYMBALTA) DR capsule 60 mg 60 mg Oral Nightly Cecil Hensley PA-C 60 mg at 02/27/192009 enalaprilat (VASOTEC) injection 1.25 mg 1.25 mg Intravenous Q6H PRN Cecil Hensley PA-C famotidine (PEPCID) tablet 20 mg 20 mg Oral BID Cecil Hensley PA-C 20 mg at 08/01/10 famotidine (PEPCID) tablet 20 mg 20 mg Oral BID PRN Cecil Hensley PA-C gabapentin (NEURONTIN) capsule 900 mg 900 mg Oral TID Cecil Hensley PA-C 900 mg at 02/27/192008 guaiFENesin (MUCINEX) ER tablet 600 mg 600 mg Oral BID Cecil Hensley PA-C 600 mg at 02/27/192010 ipratropium (ATROVENT) 500 mcg/2.5 mL nebulizer solution 500 mcg 500 mcg Nebulization RT Q6H Cecil Hensley PA-C 500 mcg at 02/28/19 0411 isosorbide mononitrate (IMDUR) ER tablet 30 mg 30 mg Oral QAM Cecil Hensley PA-C 30 mg at 02/27/19 0905 labetalol (TRANDATE) 5 mg/mL injection 10 mg 10 mg Intravenous Q10 Min PRN Cecil ramirez PA-C lactulose liquid 30 mL 30 mL Oral Daily PRN Cecil Hensley PA-C levalbuterol (XOPENEX) 1.25 mg/3 mL nebulizer solution 1.25 mg 1.25 mg Nebulization RT Q6H Denton Barakat MD 1.25 mg at 02/28/19 0411 levothyroxine (SYNTHROID) tablet 175 mcg 175 mcg Oral QAM AC Cecil Hensley PA-C 175 mcg at 02/28/19 0637 magnesium hydroxide (MILK OF MAGNESIA) 400 mg/5 mL suspension 30 mL 30 mL Oral BID PRN Cecil Hensley PA-C melatonin tablet 1.5 mg 1.5 mg Oral Nightly Adele Okeefe PharmD 1.5 mg at 2010 menthol (HALLS COUGH DROP) lozenge 1 lozenge 1 lozenge Buccal Q2H PRN Cecil Hensley PA-C methocarbamol (ROBAXIN) tablet 1,500 mg 1,500 mg Oral Q6H PRN Cecil Hensley PA-C 1,500 mg at 02/27/19 1441 metoclopramide (REGLAN) 5 mg/mL injection 10 mg 10 mg Intravenous Q4H PRN Cecil jamil PA-C metoprolol tartrate (LOPRESSOR) tablet 100 mg 100 mg Oral BID Cecil Hensley PA-C 100 mg at 02/27/19 09 montelukast (SINGULAIR) tablet 10 mg 10 mg Oral Daily Cecil Hensley PA-C 10 mg a t 02/27/19 0904 morphine injection 2-5 mg 2-5 mg Intravenous Q4H PRN Cecil Hensley PA-C 4 mg at 02/27/19 0318 naloxone (NARCAN) 0.4 mg/mL injection 0.04 mg 0.04 mg Intravenous PRN Adele Okeefe, PharmBrian nitroglycerin (NITROSTAT) SL tablet 0.4 mg 0.4 mg Sublingual Q5 Min PRN Cecil chowdhury PA-C ondansetron (ZOFRAN ODT) disintegrating tablet 4 mg 4 mg Oral Q6H PRN Cecil Hensley PA-C ondansetron (ZOFRAN) injection 4 mg 4 mg Intravenous Q6H PRN Cecil Hensley PA-C oxyCODONE (ROXICODONE) tablet 5-15 mg 5-15 mg Oral Q4H PRN Cecil Hensley PA-C 15 mg at 02/27/19 1902 pharmacy consult - pain Other Pharmacy Consult Cecil Hensley PA-C phenol (CHLORASEPTIC) spray 1-2 spray 1-2 spray Mouth/Throat Q3H PRN Cecil Hensley PA-C polyethylene glycol (MIRALAX) powder 17 g 17 g Oral Daily Cecil Hensley PA-C prochlorperazine tablet 10 mg 10 mg Oral Q6H PRN Cecil Hensley PA-C senna (SENOKOT) tablet 8.6 mg 8.6 mg Oral BID Cecil Hensley PA-C 8.6 mg at 02/27 sodium chloride 0.9% (NS) infusion Intravenous Continuous Cecil Hensley PA-C St opped at 02/27/19 0327 ALLERGIES: Allergies Allergen Reactions Doxycycline Anaphylaxis, Nausea Only, Dermatitis and Headache Throat swelling HTN Adhesive & Tape Rash Albuterol Anxiety Caused severe anxiety. Aspirin Other (See Comments) Ulceration of stomach Latex Itching and Rash PHYSICAL EXAMINATION: Temp: [35.5 C (95.9 F)-36.7 C (98 F)] 36.1 C (97 F) Pulse: [67-77] 76 Resp: [16-18] 16 BP: (96-127)/(53-73) 127/73 Intake/Output Summary (Last 24 hours) at 02/28/2019 0816 Last data filed at 02/28/2019 0334 Gross per 24 hour Intake 1988 ml Output 3350 ml Net -1362 ml GENERAL: Jose Raul Palafox is in no acute distress with unlabored respirations. HEENT: HEAD/FACE: EYES: Normocephalic and atraumatic. There are no areas of recent trauma. Normal sclerae without icterus. CHEST: Clear. HEART: Regular. ABDOMEN Soft and nondistended. EXTREMITIES: No edema or swelling. SCD's BACK: The incisions are dressed. No drain is present. NEUROLOGICAL EXAM: MENTAL STATUS: The patient is awake, alert, and oriented. He follows simple and complex commands. He speech is fluent, his comprehends speech well, and his repeats well. He has no apparent deficits with short or roasterman memory. MOTOR EXAM: Motor strength is stable SENSORY EXAM: Sensory exam is stable 24 HOUR LABS: All Component Based Labs None ASSESSMENT: NEUROSURGICAL DIAGNOSES: S/p lumbar decompression HOSPITAL/GENERAL DIAGNOSES: Past Medical History: Diagnosis Date Acute bronchitis Acute upper respiratory infection, unspecified Allergic rhinitis, unspecified Anxiety Asthma CAD in [place] artery Cervical radiculopathy at C6 Right on [...] 08/17/2016 Thyroid disease Thyroid disease Tobacco use Chronic hypoxic respiratory failure stable overnight on his regular maintenance oxygen from home. PLAN: S/p lumbar fusion, Hospital day 2 - Neurologically Pain control is better this AM. Patients pain much better this AM. No sig nificant change in pain meds from yesterday. - Medically stable - Mobilize, PT/OT - SCD's - Patient is having adequate bowel function without any concerns. They were counseled that full bowel function may not return for a few days - No drain is present - Disp: Home likely today if meets goals ELECTRONICALLY SIGNED BY: Cecil Hensley PA-C, 02/28/2019 8:16 Adele Wooten, PharmD - 02/27/2019 12:2 0 PM PDT PHARMACY SERVICES: PAIN MANAGEMENT Subjective Jose Raul Palafox is a 58 y.o. year old male admitted for s/p lumbar fusion. Allergies: Allergies Allergen Reactions Doxycycline Anaphylaxis, Nausea Only, Dermatitis and Headache Throat swelling HTN Adhesive & Tape Rash Albuterol Anxiety Caused severe anxiety. Aspirin Other (See Comments) Ulceration of stomach Latex Itching and Rash Social history: patient states he has no history of drug or alcohol use disorder. He uses e dible marijuana occasionally at night to help with sleep. Objective: BP 110/67 | Pulse 74 | Temp 35.7 C (96.3 F) (Axillary) | Resp 16 | Ht 1.899 m (6' 2 .75") | Wt 101.9 kg (224 lb 10.4 oz) | SpO2 95% | BMI 28.27 kg/m CrCl cannot be calculated (Patient's most recent lab result is older than the maximum 3 day s allowed.). Liver dysfunction: [] yes [x] no Prior history of medications for pain management includes: Bowie 5/325 two tablets three ti mes daily and gabapentin 900 mg tid Prior history of back/neck surgery: he has had neck surgery Assessment: Jose Raul was interviewed today. He was still up in bed. He had just finished walking around in his room. His pain is located on his back and is described as constant, sharp and "on fire". Jose Raul st ates he hides his pain and discomfort. Patient has a bowel regimen to treat/prevent opioid induced constipation [x] yes [] no He has had a BM w/in the last 24hrs Current pain management includes: oxycodone 5-15 mg po q4hr prn and morphine 2-5 mg iv q 4h prn Other medications For sedation/anxiety/muscle spasms: methocarbamol prn and cyclobenzaprine prn For neuropathic pain: home gabapentin and duloxetine ordered Over the past 24 hours he has used morphine IV 2 mg and 4 mg (last dose 02/27 @ 0318) and oxycodone 5 mg x1 followed by 15 mg each dose. 133.5 morphine equivalents Plan: 1. Maintain frequency and dose of oxycodone and morphine 2. Start acetaminophen 650 mg q4h around the clock (hold midnight dose if patient is asleep ) 3. Start melatonin 1.5 mg nightly 4. Narcan IV PRN ordered 5. Patient has been educated about pain management, bowel movement medications and patient care plan. 6. Will monitor patient pain level/comfort at least every 24 hours. 7. Pharmacy will continue to follow and modify as needed. Thank you for consulting pharmacy to participate in the patient s care, Electronically signed by: Adele Okeefe, PharmBrian 02/27/2019 12:20 MED calculator 1 MED calculator 2 uCecil carty PA-C - 02/27/2019 8:06 AM PDTFormatting of this note might be different from the [facility] NEUROSURGERY PROGRESS NOTE PATIENT NAME: Jose Raul Palafox AGE: 58 y.o. DATE OF SERVICE: 02/27/2019 8:06 S: Patient is doing fairly god. He states his right leg is better now than it was before [facility] but still symptomatic. Mostly on the top of his leg. His biggest problem is his back. At rest his pain is a 5-6 out of 10. He has not mobilized a lot yet. He has been primarily g etting 15mg Q4 hours and morphine IV for breakthrough. From the 15 mg of oxycodone alone his morphine equivalents is 135. He does not feel ready to DC home today yet. The patient has been voiding and had a bowel movement. O: CURRENT MEDICATIONS: Current Facility-Administered Medications Medication Dose Route Frequency Provider Last Rate Last Dose acetaminophen (TYLENOL) tablet 650 mg 650 mg Oral Q4H PRN Cecil Hensley PA-C albuterol 5 mg/mL concentrated nebulizer solution 2.5 mg 2.5 mg Nebulization RT Q4H NV N Cecil Hensley PA-C albuterol 90 mcg/puff inhaler 2-4 puff 2-4 puff Inhalation Q4H PRN Palma Walsh-Antione atorvaSTATin (LIPITOR) tablet 80 mg 80 mg Oral Nightly Cecil Hensley PA-C 80 mg at 02/26/192017 bisacodyl (DULCOLAX) suppository 10 mg 10 mg Rectal Daily PRN Cecil Hensley PA-C budesonide (PULMICORT) 0.5 mg/2 mL nebulizer solution 0.5 mg 0.5 mg Nebulization RT BI D Cecil Hensley PA-C 0.5 mg at 02/26/192040 buPROPion (WELLBUTRIN SR) 12 hr tablet 150 mg 150 mg Oral BID Cecil Hensley PA-C 150 mg at 02/26/192018 busPIRone (BUSPAR) tablet 15 mg 15 mg Oral BID Cecil Hensley PA-C 15 mg at 02/26 calcium carbonate (TUMS) chewable tablet 1,000 mg 1,000 mg Oral Q2H PRN Cecil chowdhury PA-C cyclobenzaprine (FLEXERIL) tablet 10 mg 10 mg Oral Q8H PRN Cecil Hensley PA-C 10 mg at 02/27/19 0128 diphenhydrAMINE (BENADRYL) injection 12.5 mg 12.5 mg Intravenous Q4H PRN Cecil kingston PA-C Or diphenhydrAMINE (BENADRYL) tablet 25 mg 25 mg Oral Q4H PRN Cecil Hensley PA-C Or diphenhydrAMINE (BENADRYL) 12.5 mg/5 mL liquid 25 mg 25 mg Oral Q4H PRN Cecil chowdhury PA-C docusate sodium (COLACE) capsule 100 mg 100 mg Oral BID Cecil Hensley PA-C 100 m g at 02/26/19 2018 DULoxetine (CYMBALTA) DR capsule 60 mg 60 mg Oral Nightly Cecil Hensley PA-C 60 mg at 02/26/19 2018 enalaprilat (VASOTEC) injection 1.25 mg 1.25 mg Intravenous Q6H PRN Cecil Hensley PA-C famotidine (PEPCID) tablet 20 mg 20 mg Oral BID Cecil Hensley PA-C 20 mg at 08/12/10 famotidine (PEPCID) tablet 20 mg 20 mg Oral BID PRN Cecil Hensley PA-C gabapentin (NEURONTIN) capsule 900 mg 900 mg Oral TID Cecil Hensley PA-C 900 mg at 02/26/192017 guaiFENesin (MUCINEX) ER tablet 600 mg 600 mg Oral BID Cecil Hensley PA-C 600 mg at 02/26/19 2018 ipratropium (ATROVENT) 500 mcg/2.5 mL nebulizer solution 500 mcg 500 mcg Nebulization RT Q6H KAUSHAL WalshC 500 mcg at 02/27/19 0350 isosorbide mononitrate (IMDUR) ER tablet 30 mg 30 mg Oral QAM Cecil Hensley PA-C labetalol (TRANDATE) 5 mg/mL injection 10 mg 10 mg Intravenous Q10 Min PRN Cecil ramirez PA-C lactulose liquid 30 mL 30 mL Oral Daily PRN YUNIER Walsh-C levalbuterol (XOPENEX) 1.25 mg/3 mL nebulizer solution 1.25 mg 1.25 mg Nebulization RT Q6H Denton Barakat MD levothyroxine (SYNTHROID) tablet 175 mcg 175 mcg Oral QAM AC Cecil Hensley PA-C 175 mcg at 02/27/19 0643 magnesium hydroxide (MILK OF MAGNESIA) 400 mg/5 mL suspension 30 mL 30 mL Oral BID PRN Cecil Hensley PA-C menthol (HALLS COUGH DROP) lozenge 1 lozenge 1 lozenge Buccal Q2H PRN Cecil Hensley PA-C methocarbamol (ROBAXIN) tablet 1,500 mg 1,500 mg Oral Q6H PRN KAUSHAL WalshC 1,500 mg at 02/27/19 0643 metoclopramide (REGLAN) 5 mg/mL injection 10 mg 10 mg Intravenous Q4H PRN Cecil jamil PA-C metoprolol tartrate (LOPRESSOR) tablet 100 mg 100 mg Oral BID YUNIER Walsh-C 100 mg at 02/26/19 2017 montelukast (SINGULAIR) tablet 10 mg 10 mg Oral Daily Cecil Hensley PA-C morphine injection 2-5 mg 2-5 mg Intravenous Q4H PRN Cecil Hensley PA-C 4 mg at 02/27/19 0318 nitroglycerin (NITROSTAT) SL tablet 0.4 mg 0.4 mg Sublingual Q5 Min PRN Cecil chowdhury PA-C ondansetron (ZOFRAN ODT) disintegrating tablet 4 mg 4 mg Oral Q6H PRN Cecil Hensley PA-C ondansetron (ZOFRAN) injection 4 mg 4 mg Intravenous Q6H PRN Cecil Hensley PA-C oxyCODONE (ROXICODONE) tablet 5-15 mg 5-15 mg Oral Q4H PRN YUNIER Walsh-C 15 mg at 02/27/19 0643 phenol (CHLORASEPTIC) spray 1-2 spray 1-2 spray Mouth/Throat Q3H PRN Cecil Hensley PA-C polyethylene glycol (MIRALAX) powder 17 g 17 g Oral Daily Cecil Hensley PA-C prochlorperazine tablet 10 mg 10 mg Oral Q6H PRN Cecil Hensley PA-C senna (SENOKOT) tablet 8.6 mg 8.6 mg Oral BID KAUSHAL WalshC 8.6 mg at 02/26 2018 sodium chloride 0.9% (NS) infusion Intravenous Continuous Cecil Hensley PA-C St opped at 02/27/19 0327 ALLERGIES: Allergies Allergen Reactions Doxycycline Anaphylaxis, Nausea Only, Dermatitis and Headache Throat swelling HTN Adhesive & Tape Rash Albuterol Anxiety Caused severe anxiety. Aspirin Other (See Comments) Ulceration of stomach Latex Itching and Rash PHYSICAL EXAMINATION: Temp: [35.5 C (95.9 F)-36.4 C (97.5 F)] 36.2 C (97.2 F) Pulse: [69-83] 69 Resp: [10-20] 20 BP: (103-130)/(49-80) 124/64 Intake/Output Summary (Last 24 hours) at 02/27/2019 0806 Last data filed at 02/27/2019 0700 Gross per 24 hour Intake 3172 ml Output 1850 ml Net 1322 ml GENERAL: Jose Raulcilfton Palafox is in no acute distress with unlabored respirations. HEENT: HEAD/FACE: EYES: Normocephalic and atraumatic. There are no areas of recent trauma. Normal sclerae without icterus. CHEST: Clear. HEART: Regular. ABDOMEN Soft and nondistended. EXTREMITIES: No edema or swelling. SCD's BACK: The incisions are dressed. No drain is present. NEUROLOGICAL EXAM: MENTAL STATUS: The patient is awake, alert, and oriented. He follows simple and complex commands. He speech is fluent, his comprehends speech well, and his repeats well. He has no apparent deficits with short or skilled nursing memory. MOTOR EXAM: Motor strength is stable SENSORY EXAM: Sensory exam is stable 24 HOUR LABS: All Component Based Labs None ASSESSMENT: NEUROSURGICAL DIAGNOSES: S/p lumbar decompression HOSPITAL/GENERAL DIAGNOSES: Past Medical History: Diagnosis Date Acute bronchitis Acute upper respiratory infection, unspecified Allergic rhinitis, unspecified Anxiety Asthma CAD in [place] artery Cervical radiculopathy at C6 Right on [...] Thyroid disease Thyroid disease Tobacco use PLAN: S/p lumbar fusion, Hospital day 1 - Neurologically Pain control is fair but he is not having good pain control on oral meds a nd we are already at 135 morphine equivalents. Will get a pharmacy consult. - Medically stable - Mobilize, PT/OT - SCD's - Patient is having adequate bowel function without any concerns. They were counseled that full bowel function may not return for a few days - No drain is present - Disp: Likely home in 1-2 days ELECTRONICALLY SIGNED BY: Cecil Hensley PA-C, 02/27/2019 8:06 documented in thi s encounter Miscellaneous Notes Plan of Care - Gissell Hoff MSW - 02/28/2019 12:29 PM PDTPatient discharged home toda y and this CM faxed the d/c summary to Dr Gomez asking him to sign off on the needs medicati ons. The DME order was sent yesterday to [facility] and they are working with the patient to get the DME delivered to him. PLAN: Home, no further needs. Electronically signed by: JESSICA Rosas 02/28/2019 12: 30 lan of Lupe - Judi Alva RN - 02/28/2019 11:29 AM PDTAll goals adequate for discharge. Educated on incision care, follow up care and medication changes. Discharged home with . Electronica lly signed by Judi Benson RN at 02/28/2019 11:30 AM PDTPlan of Bernadette Wharton Chaplain - 02/28/2019 10:40 AM PDT Spiritual Care Jose Raul Palafox is a 58 y.o. male who is admitted for Neurogenic claudication [M48.062] Osteoarthritis of spine with radiculopathy, lumbar region [M47.26] Low back pain, unspecified back pain laterality, unspecified chronicity, with sciatica pres ence unspecified [M54.5]. Referral Coordinator visit was part of routine rounding. Spiritual Evaluation: The patient requested that the online marketing coordinator follow-up with prayer before discharge today. The patient and his and gmjrzb-es-apo welcomed prayer support before leaving. The patient also offered prayer. Spiritual Interventions: The online marketing coordinator attended and offered prayer. Spiritual Outcomes: The patient appreciated prayer support and had a hopeful, grateful attitude. Spiritual Goals/Follow-up: No follow up necessary. 10 :42 AM PDTPlan of Lola Henriquez RRT - 02/28/2019 9:52 AM PDT Problem: COPD Comorbidity Goal: Maintenance of COPD Symptom Control Outcome: Ongoing, progressing -Home regime includes: Xopenex TID, AdVair BID, Atrovent TID. -Oxygen use 2 liters continuously, 3 to 4 years Maria L. Bill denies shortness of breath this am after working with PT, breath sounds are equal and diminished in bases otherwise clear, tolerating nebulizer treatment substitute for home reg rosetta, SpO2: 97 %(Denies SOB.) on 2(Decreased from 3 liters, states home regime is 2 liters co nt)liters/minute nasal cannula with humidification lan of Care - Marlin Mcfarlane COTA - 02/28/2019 9:42 AM PDTFormatting of this note might be different from t he original. Occupational Therapy Plan of Care Treatment Note Summary: Jose Raul has been participating in occupational therapy for treatment of Impaired A DLs, decreased functional mobility, decreased functional activity tolerance, decreased safet y awareness following L2-5 decompressive laminectomies, R back. Intractable low back & R>L L E pain. . Emphasis of session included Education for body mechanics and technique with ADL' s. Patient demonstrates progress towards functional goals as evidenced by verbalizing under standing of spinal precautions and demonstrating understanding of safe log roll into bed Remaining barriers to discharge and functional limitations include spinal precautions. Jose Raul will benefit from continued therapeutic intervention to address ongoing impairments a nd increase safety and independence with activities necessary for safe discharge. Refer bel ow for specific details regarding functional levels. Occupational Therapy Discharge Recommendations are: Recommended discharge disposition: home with assist Post discharge occupational therapy recommendation: no further OT Equipment Recommendations: sock aide, 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, long handled shoe horn, 2 wheeled walker (F WW) Planned Interventions:ADL retraining, bed mobility training, transfer training, patient/fam adrian education, balance training Recommended Frequency: 5 times/wk Patient Status/Goals: Reflects last filed data and may be from multiple contributors. ADLs Pt sitting EOB, O2 is on, he just finished with P.T., He is dressed allready, reports he d ressed with set up only from his . Reporting he could lift his B LE's high enough to re ach his feet w/o bending or needing AE. He is able to tell this therapist his precautions, He declined need for grooming or oral care this am, educated on moby mechanics and technique s with toilet hygiene and shower trnasfer. both pt and his verbalize understanding. By report: set up only UB Dressing, Level of [place]: set up required Assistive Device: none UB Dressing Assess/Train, Position: sitting UB Dressing Impairments: decreased flexibility, ROM decreased, pain, impaired functional en durance/activity tolerance By report: set up only LB Dressing, Level of [place]: set up required Assistive Device: none LB Dressing Assess/Train, Position: sitting, standing LB Dressing Impairments: decreased flexibility, ROM decreased, pain He declined need for oreal care this am. Bed Mobility Pt completed bed mob getting back into bed Mod I this session. Assistive Device: bed rails Supine to Sit, Level of [place]: not tested Sit to Supine, [place]: modified independent Safety Issues: decreased use of arms for pushing/pulling, decreased use of legs for bridgin g/pushing, impaired trunk control for bed mobility Impairments: decreased flexibility, ROM decreased, impaired balance, strength decreased, pa in, postural control impaired Transfers Declined OOB activity / just finishing P.T. OT Goal Review Date Most Recent Value STG Review Date 03/05/19 at 02/26/2019 1602 UB Dressing Goal Most Recent Value STG Status met at 02/28/2019 0942 STG [place] Level supervised at 02/26/2019 1602 LB Dressing Goal Most Recent Value STG Status met at 02/28/2019 0942 STG [place] Level supervised at 02/26/2019 1602 Toileting Goal Most Recent Value STG Status continued at 02/28/2019 0942 STG [place] Level supervised at 02/26/2019 1602 Toilet Transfer Goal Most Recent Value STG Status continued at 02/28/2019 0942 STG [place] Level supervised at 02/26/2019 1602 Tub/Shower Transfer Goal Most Recent Value Tub/Shower Type walk in shower stall at 02/26/2019 1602 STG Status continued at 02/28/2019 0942 STG [place] Level supervised at 02/26/2019 1602 Electronically signed by: DWAYNE Curtis, 02/28/2019 10:01 lan of Lupe Shmuel Samaniego, LAND SALES AGENT - 02/28/2019 9:24 AM PDTFormatting of this note might be different f rom the original. Physical Therapy Plan of Care Treatment Note Summary: Jose Raul has been participating in physical therapy for treatment of impaired functi onal mobility and transfers s/p right decompressive laminectomies L2-S1. Emphasis of sessio n included bed mobility, functional transfers, gt and stair training. Patient demonstrates progress towards functional goals as evidenced by pt met all PT goals today. Refer below for specific details regarding functional levels. Physical Therapy Discharge Recommendations are: Recommended discharge disposition: home with assist Post discharge physical therapy recommendation: other (see comments)(TBD) Equipment Recommendations: none(has FWW) Planned Interventions: balance training, bed mobility training, gait training, home exerci se program, neuromuscular re-education, patient/family education, postural re-education, sta ir training, strengthening, transfer training Recommended Frequency: daily Patient Status/Goals: Reflects last filed data and may be from multiple contributors. Gait slow antalgic gt; pt with flexed forward posture d/t pain; mildly impulsive Level of [place]: modified independent Assistive Device: 2 wheeled walker (FWW) Distance (feet): 50 Gait Deviations: kortney decreased, double stance time increased, limb motion velocity decr eased, step length decreased, stride length decreased, stride width increased, [id number]-[id number] ce ratio decreased, [id number]-[id number] clearance decreased, weight-shifting ability decreased Safety Issues: balance decreased during turns, sequencing ability decreased, step length de creased, weight-shifting ability decreased, other (see comments) Impairments: decreased flexibility, strength decreased, impaired balance, coordination impa ired, motor control impaired, postural control impaired, pain Stairs pt demo'd ability to safety complete 3 steps with single rail Number of Stairs: 3 Handrail Location: left side (ascending) Level of [place]: modified independent Assistive Device: 1 rail Technique Used: step to step (ascending), step to step (descending) Safety Issues: weight-shifting ability decreased, balance decreased during turns Impairments: impaired balance, pain, decreased flexibility Transfers pt walker adjusted to proper height; cues at start for hand placement; pt demo'd carryover throughout rest of session Bed-Chair, Level [place]: modified independent Chair-Bed, Level [place]: modified independent Spw-Lugya-Fce, Assistive Device: 2 wheeled walker (FWW) Sit-Stand, Level [place]: modified independent Stand-Sit, Level [place]: modified independent Tbp-[id number]-Zoi, Assistive Device: 2 wheeled walker (FWW) Safety Issues: other (see comments), sequencing ability decreased, weight-shifting ability decreased Impairments: decreased flexibility, strength decreased, impaired balance, pain Bed Mobility v/c at start to slow down as pt is impulsive; Mod I to complete Assistive Device: bed rails Roll Left, Level [place]: modified independent Roll Right, Level [place]: modified independent Scoot/Bridge, [place]: modified independent Supine to Sit, [place]: modified independent Sit to Supine, Level [place]: modified independent Safety Issues: decreased use of arms for pushing/pulling, decreased use of legs for bridgin g/pushing, impaired trunk control for bed mobility Impairments: decreased flexibility, ROM decreased, impaired balance, strength decreased, pa in, postural control impaired Balance no LOB throughout session Sitting Balance: Static: normal balance Sitting Balance: Dynamic: good balance Standing Balance: Static: good balance Standing Balance: Dynamic: fair balance((+)) Functional Endurance fair (+) for activities presented; limited by pain PT Goal Review Date Most Recent Value STG Review Date 03/05/19 at 02/26/2019 1425 All Bed Mobility Goal Most Recent Value STG Status met at 02/28/2019 0924 STG [place] Level modified independent at 02/26/2019 1425 STG Comments log roll technique at 02/26/2019 1425 Lno-Tvxee-Azw Goal Most Recent Value STG Status met at 02/28/2019 0924 STG [place] Level modified independent at 02/26/2019 1425 STG Assistive Device 2 wheeled walker (FWW) at 02/26/2019 1425 Gait Goal Most Recent Value STG Status met at 02/28/2019 0924 STG [place] Level modified independent at 02/26/2019 1425 STG Assistive Device 2 wheeled walker (FWW) at 02/26/2019 1425 STG Distance (feet) 50 at 02/26/2019 1425 Stair Goal Most Recent Value STG Status met at 02/28/2019 0924 STG [place] Level modified independent at 02/26/2019 1425 STG Assistive Device 1 rail at 02/26/2019 1425 STG Number of Stairs 3 at 02/26/2019 1425 Additional Goal #1 PT Most Recent Value STG Status progressing at 02/28/2019 0924 STG Pt will verbalize understanding of spinal precautions and demonstrate adherence to pre cautions during all functional mobility. at 02/26/2019 1425 Electronically signed by: Shmuel Hnason PTA, 02/28/2019 11:31 lan of Caroline Fountain, CADD MANAGER - 02/28 5:22 AM PDTRalph oxygen saturation is SpO2: 96 % on 3liters/minute nasal cannula and a heart rate of 69. Breath sounds are diminished, wheezes, expiratory and post breathi ng treatment breath sounds are . Pt has a good, nonproductive cough. Pt's respirations are no shortness of breath reported, depth regular, pattern regular, unlabored with . Neb txs g iven via mouthpiece, tolerates well. Incentive Spirometer IS Predicted Level (mL) : 3200 IS Administration : done with encouragement IS Number of Repetitions : 10 IS Level (mL) : 3000 Patient Tolerance: good lan of Trudy Hernandez RN - 02/28/2019 3:56 AM PDTPain managed with oxycodone, robaxin, flexeril and scheduled tylenol. A/O x4. Aquacel to lower back has two spots of dried, sanguinous galina inage, no change since start of shift. Right post graduate intern and right D/P are weaker than left, modera te strength. Crackles in bases of lungs, expiratory wheezes at times. On 3L, SpO2 95%. SBA w ith FWW to toilet. Urinal at bedside, good UO. lan of Caroline Fountain, CADD MANAGER - 02/27/2019 9:26 PM PDT Jose Raul oxygen saturation is SpO2: 95 % on 3liters/minute nasal cannula with humidification and a heart rate of 76. Breath sounds are diminished, wheezes, expiratory and post breathi ng treatment breath sounds are . Pt has a good, nonproductive cough. Pt's respirations are no shortness of breath reported, depth regular, pattern regular, unlabored with . Neb txs g iven via mouthpiece, tolerates well. 19 9:27 PM PDTPlan of Care - Judi Benson RN - 02/27/2019 6:43 PM PDTC/o frequent pa in today. Managed with PO oxycodone with muscle relaxer, scheduled Tylenol. No need for IV m orphine this shift. No changes to neuro status. Numbness to RLE. Dressing intact, minimal ch anges to drainage on bandage. BM today. Tolerating general diet with no n/v. VSSElectronical ly signed by Judi Benson RN at 02/27/2019 6:45 PM PDTPlan of Care - Amanda Espinosa P T - 02/27/2019 12:00 PM PDT Physical Therapy Plan of Care Treatment Note Summary: Jose Raul has been participating in physical therapy for treatment of impaired funct ional mobility and transfers s/p right decompressive laminectomies L2-S1. Emphasis of sessio n included functional transfers and gait training within room. Patient demonstrates stunted progress towards functional goals d/t high pain levels. He reports that sitting is more comf ortable than lying down. Pt verbalizes understanding that he is not supposed to sit for >45 minutes at a time, further discussed importance of getting up and taking a short walk betwee n periods of sitting. Also discussed alternative positioning options, including sidelying or supine with HOB elevated. Remaining barriers to discharge and functional limitations include decreased functional act ivity tolerance, decreased bed mobility, decreased functional transfers, decreased functiona l gait distance, decreased gait velocity, stairs at home, demonstrating need for 24/7 superv ision, not yet able to mobilize at level safe for home discharge and spinal precautions. Jose Raul will benefit from continued therapeutic intervention to address ongoing impairments a nd increase safety and independence with activities necessary for safe discharge. Refer bel ow for specific details regarding functional levels. Physical Therapy Discharge Recommendations are: Recommended discharge disposition: home with assist Post discharge physical therapy recommendation: other (see comments)(TBD) Equipment Recommendations: none(has FWW) Planned Interventions: balance training, bed mobility training, gait training, home exerci se program, neuromuscular re-education, patient/family education, postural re-education, sta ir training, strengthening, transfer training Recommended Frequency: daily Patient Status/Goals: Reflects last filed data and may be from multiple contributors. Gait pt con't to demo slow effortful gait, cues for improved posture although pt unable to stand fully upright d/t pain, pt also mildly impulsive and requires close SBA/frequent verbal cue s for safety Level of [place]: stand by assist, verbal cues required Assistive Device: 2 wheeled walker (FWW) Distance (feet): 30 x 2 Gait Deviations: kortney decreased, double stance time increased, limb motion velocity decr eased, step length decreased, stride length decreased, stride width increased, qqyjr-ko-ikrc ce ratio decreased, nyd-cl-qndzs clearance decreased, weight-shifting ability decreased Safety Issues: balance decreased during turns, sequencing ability decreased, step length de creased, weight-shifting ability decreased, other (see comments)(decreased safety awareness) Impairments: decreased flexibility, strength decreased, impaired balance, coordination impa ired, motor control impaired, postural control impaired, pain Stairs not appropriate to assess this session d/t high pain levels Transfers pt mildly impulsive, requires close SBA and frequent verbal cues for safety Sit-Stand, Level of [place]: stand by assist, verbal cues required Stand-Sit, Level of [place]: stand by assist, verbal cues required [id number], Assistive Device: 2 wheeled walker (FWW) Safety Issues: other (see comments), sequencing ability decreased, weight-shifting ability decreased(decreased safety awareness) Impairments: decreased flexibility, strength decreased, impaired balance, coordination impa ired, motor control impaired, postural control impaired, pain Bed Mobility not tested, pt sitting EoB at beginning and end of session, states that lying down is more uncomfortable than sitting Balance Sitting Balance: Static: good balance Sitting Balance: Dynamic: good balance Standing Balance: Static: fair balance Standing Balance: Dynamic: fair balance Functional Endurance con't to be limited d/t high pain levels PT Goal Review Date Most Recent Value STG Review Date 03/05/19 at 02/26/2019 1425 All Bed Mobility Goal Most Recent Value STG Status new at 02/26/2019 1425 STG [place] Level modified independent at 02/26/2019 1425 STG Comments log roll technique at 02/26/2019 1425 [id number]-[id number] Goal Most Recent Value STG Status continued at 02/27/2019 1200 STG [place] Level modified independent at 02/26/2019 1425 STG Assistive Device 2 wheeled walker (FWW) at 02/26/2019 1425 Gait Goal Most Recent Value STG Status continued at 02/27/2019 1200 STG [place] Level modified independent at 02/26/2019 1425 STG Assistive Device 2 wheeled walker (FWW) at 02/26/2019 1425 STG Distance (feet) 50 at 02/26/2019 1425 Stair Goal Most Recent Value STG Status new at 02/26/2019 1425 STG [place] Level modified independent at 02/26/2019 1425 STG Assistive Device 1 rail at 02/26/2019 1425 STG Number of Stairs 3 at 02/26/2019 1425 Additional Goal #1 PT Most Recent Value STG Status progressing at 02/27/2019 1200 STG Pt will verbalize understanding of spinal precautions and demonstrate adherence to pre cautions during all functional mobility. at 02/26/2019 1425 Electronically signed by: Amanda Espinosa, PT, 02/27/2019 13:40 lan of Care - Gissell Hoff, SHAFT REPAIRER - 02/27/2019 11:4 4 AM PDTThis mattress spring encaser met with Bill to discuss his discharge plan. His Iman was tiffanie rodriguezping in the chair next to this bed. Bill lives with Iman in a apartment with three step s to enter. He states that he already completed stairs here. He states that he has both a 4W W, FWW, shower chair, raised toilet seat, cane, on 2L O2 continuous at home. 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 He states that he needs a shoe horn, sock aide, and a 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. He states that as long as th e orders are sent to the [facility] he will get them. Message sent to YUNIER Jacob asking for these DME orders. This CM [facility]--she states that this will need to be sent to [facility] and to have Dr Gomez sign off on the DME then they would ship out the DME to him. His PCP is Dr Gomez, he uses [facility]. He asks that we [facility] prior t o d.c. He feels like he will be safe to discharge home with his spouse. His father in law will be transporting him home. He plans on discharging tomorrow. PLAN: Home, needs DME from [facility], to fax RX to Dr Gomez upon discharge. Electronically sign ed by: JESSICA Rosas 02/27/2019 11:52 Faxed DME orders to [facility]. Spoke with Vanna at and she states that they w ill work on getting the DME processed. She states that they will most likely mail out the DM E to the patients home. Electronically signed by: JESSICA Rosas 02/27/2019 15:25Elect ronically signed by JESSICA Lewis at 02/27/2019 3:25 PM PDTPlan of Lupe - Jacquelyn Woodruff Chaplain - 02/27/2019 11:31 AM PDT Spiritual Care Jose Raul Palafox is a 58 y.o. male who is admitted for Neurogenic claudication [M48.062] Osteoarthritis of spine with radiculopathy, lumbar region [M47.26] Low back pain, unspecified back pain laterality, unspecified chronicity, with sciatica pres ence unspecified [M54.5]. Referral Coordinator visit was part of routine rounding. Spiritual Evaluation: The patient was sitting up in his bed attended by his . They welcomed a spiritual care visit and expressed a strong carlos in God. The patient shared that he has been healed of c ancer and now feels as if he never had it. His is also healing from two hip surgeries. The patient attends [facility] in [place]. He is looking forward to running after his grand-daughters when he heals. Spiritual Interventions: The online marketing coordinator attended, offered care, witnessed patient's story, explored meaning and offere d prayer. Spiritual Outcomes: The patient appreciated spiritual care, engaged actively in prayer and sang the Amen song. He has a positive attitude although he admits that he has a lot of pain. Spiritual Goals/Follow-up: Follow up with spiritual support as available before patient discharges. Electronically si gned by Chaplain Kristie at 02/27/2019 11:34 AM PDTPlan of Care - Osman Pathak OT - 02/27/2019 10:25 AM PDT Occupational Therapy Plan of Care Treatment Note Summary: Jose Raul has been participating in occupational therapy for treatment of Impaired A DLs, decreased functional mobility, decreased functional activity tolerance, decreased safet y awareness following L2-5 decompressive laminectomies, R back. Intractable low back & R>L L E pain. Emphasis of session included full body dressing, functional mobility, grooming at si nk. Patient demonstrates progress towards functional goals as evidenced by improving functi onal independence with ADLs and mobility. Remaining barriers to discharge and functional limitations include decreased functional act ivity tolerance, decreased bed mobility, decreased ability to perform ADLs, decreased abilit y to perform IADLs, demonstrating need for 24/7 supervision, not yet able to mobilize at the [facility] safe for home discharge and spinal precautions. Jose Raul will benefit from continued therapeutic intervention to address ongoing impairments a nd increase safety and independence with activities necessary for safe discharge. Refer bel ow for specific details regarding functional levels. Occupational Therapy Discharge Recommendations are: Recommended discharge disposition: home with assist Post discharge occupational therapy recommendation: no further OT Equipment Recommendations: sock aide, 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, long handled shoe horn, 2 wheeled walker (F WW) Planned Interventions:ADL retraining, bed mobility training, transfer training, patient/fam adrian education, balance training Recommended Frequency: 5 times/wk Patient Status/Goals: Reflects last filed data and may be from multiple contributors. ADLs pt requested hospital pants in prep for PT to ambulate in [place] shortly. agreeable to groomi ng at sink and to toilet and shower transfers with SBA and FWW. Min A to manage hospital gown UB Dressing, Level of [place]: minimal assist (75% patient effort) Assistive Device: none UB Dressing Assess/Train, Position: standing UB Dressing Impairments: decreased flexibility, ROM decreased, pain, impaired functional en durance/activity tolerance pt donned socks and hospital pants using AE with VCs and SBA when standing LB Dressing, Level of [place]: stand by assist, verbal cues required Assistive Device: long-handled shoe horn, 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, sock-aid LB Dressing Assess/Train, Position: sitting, standing LB Dressing Impairments: decreased flexibility, ROM decreased, pain pt brushed teeth, used mouthwash, and washed his face and hands at the sink with supervisio n and FWW Grooming, Level of [place]: supervised Assistive Device: none Grooming Assess/Train, Position: standing Grooming Impairments: pain, impaired functional endurance/activity tolerance Functional Endurance fair. limited by lumbar pain. Bed Mobility pt seated at EOB at beginning and end of treatment. States he has more pain when lying down than sitting. Advised him to consider sidelying and using an ice pack to decrease pain. Transfers Sit-Stand, Level of [place]: stand by assist, verbal cues required Stand-Sit, Level of [place]: stand by assist, verbal cues required [id number], Assistive Device: 2 wheeled walker (FWW) Toilet, Level of [place]: stand by assist, verbal cues required Toilet, Assistive Device: 2 wheeled walker (FWW), commode (3 in 1) Walk-in shower, Level of [place]: stand by assist, verbal cues required Walk-in shower, Assistive Device: 2 wheeled walker (FWW), shower chair, grab bars Safety Issues: step length decreased, weight-shifting ability decreased, balance decreased during turns Impairments: decreased flexibility, impaired balance, strength decreased, ROM decreased, po stural control impaired, pain OT Goal Review Date Most Recent Value STG Review Date 03/05/19 at 02/26/2019 1602 UB Dressing Goal Most Recent Value STG Status progressing at 02/27/2019 1025 STG [place] Level supervised at 02/26/2019 1602 LB Dressing Goal Most Recent Value STG Status progressing at 02/27/2019 1025 STG [place] Level supervised at 02/26/2019 1602 Toileting Goal Most Recent Value STG Status new at 02/26/2019 1602 STG [place] Level supervised at 02/26/2019 1602 Toilet Transfer Goal Most Recent Value STG Status progressing at 02/27/2019 1025 STG [place] Level supervised at 02/26/2019 1602 Tub/Shower Transfer Goal Most Recent Value Tub/Shower Type walk in shower stall at 02/26/2019 1602 STG Status progressing at 02/27/2019 1025 STG [place] Level supervised at 02/26/2019 1602 Electronically signed by: Osman Pathak OT, 02/27/2019 12:22 lan of Lupe Blanca Paulino RN - 02/27/2019 5:28 AM PDTPt is A/Ox4. Pt complains of pain in lower back and R l eg. Given 15mg Oxy, and muscle relaxants, also IV morphine 2-4mg for breakthrough pain. Pt C MS is intact. Incision has some small amount of drainage, but dressing is intact. Pt is a SB A with 2WW. Pt remains free from falls this shift. VSS. lan of Lupe - Caroline Chatman RRT - 02/27/2019 5:04 AM PDTR alph oxygen saturation is SpO2: 96 % on 3liters/minute nasal cannula with humidification per home regimen and a heart rate of 79. Breath sounds are diminished, clear and post breathing treatment b reath sounds are . Pt has a good, nonproductive cough. Pt's respirations are depth regular, pattern regular, no shortness of breath reported, unlabored with . Neb txs given via mouth piece in lieu of home mdi regimen, tolerates well but did state he has reaction to albuterol in which is why he uses xopenex. Incentive Spirometer IS Predicted Level (mL) : 3200 IS Administration : done with encouragement IS Number of Repetitions : 10 IS Level (mL) : 3000 Patient Tolerance: good lan of Amy Ken RN - 02/26/2019 4:20 PM PDTScott is doing well post surgery, pain to l ower back 8/10 prn pain meds and muscle relaxer given, patient report decrease to 6/10. Plea chloe and joking around with staff. at bedside, plans to stay the night. When arrived to floor blood noted to bottom of dressing, than when patient started to work with therapy ashley se was called in the room, dressing noted to saturated. Pressure dressing applied, so far bonilla s remained dry. Will check bleeding this evening and change dressing if decreased. Neuro asha cks in place, R side noted to be slightly weaker than left, and report numbness to R leg, bonilla s remain sable this shift. Hourly rounding completed, call light within reach. Will continue to monitor. Plan of Care - Carissa Dickerson, OT - 02/26/2019 4:02 PM PDT Occupational Therapy Plan of Care Initial Evaluation, Treatment Note Summary: Jose Raul presents to occupational therapy with Impaired ADLs, decreased functional mobility, decreased functional activity tolerance, decreased safety awareness following L2-5 decompressive laminectomies, R back. Intractable low back & R>L LE pain. . Objective exam reveals impairments with aerobic capacity/endurance, anthropometric characteristics, ergonom ics and body mechanics, functional endurance/activity tolerance, gait, locomotion, and glenys ce, joint integrity and mobility, muscle performance, social dynamics, ADls; fxl mobility. Barriers to discharge and functional limitations include decreased insight into safety and deficits, decreased functional activity tolerance, decreased bed mobility, decreased functio nal transfers, decreased ability to perform ADLs, not yet able to mobilize at level safe for home discharge and spinal precautions. Jose Raul will benefit from therapeutic intervention to address impairments and increase safety and independence with activities necessary for safe discharge. Refer below for specific de tails regarding functional levels. Precautions/Limitations: falls, spinal, oxygen therapy device and L/min Left Upper Extremity Weight-Bearing: (No overhead use) Right Upper Extremity Weight-Bearing: (No overhead use) Previous Level of Function: Transferring: independent Ambulation: independent Toileting: independent Bathing: independent Dressing: independent Eating: independent Communication: understands/communicates without difficulty Swallowin-->swallows foods/liquids without difficulty Equipment Currently Used at Home: 4 wheeled walker (4WW), cane, straight, single point(only uses outside the house) Prior Functional Level Comment: Independent in ADLs, assists prn. Had cervical fusion w/ Dr. Stern a few years ago Potential available assistance at discharge: Significant Relationships: spouse Living Environment/Accessibility: Lives With: spouse Living Arrangements: apartment(ground level) Home Accessibility: stairs (1 railing present) Number of Stairs to Enter Home: 3 Number of Stairs Within Home: 0 Financial Concerns: none Transportation Available: none Living Environment Comment: walk in shower with small lip, shower bench and HHSH, standard height toilet but has commode riser seat, no grab bars in bathroom Patient/Family?s Goals: Go home in the next day or two. Has less pain in his back. Rehabilitation potential: good, to achieve stated therapy goals Occupational Therapy Discharge Recommendations are: Recommended discharge disposition: home with assist Post discharge occupational therapy recommendation: no further OT Equipment Recommendations: 2 wheeled walker (FWW), 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(Has a FWW that is his 's (keith lockhart too short). ) Planned Interventions:ADL retraining, bed mobility training, transfer training, patient/fam adrian education, balance training Recommended Frequency: 5 times/wk Patient Status/Goals: Reflects last filed data and may be from multiple contributors. ADLs Further ADLs next visit. Focus today was functional mobility. Cognitive Alert & oriented. Moves a little quickly, cues for safety. Bed Mobility Initiated a long-sitting type of transfer to EOB, unsuccessful d/t pain. He thought it to be a log-roll. Reviewed log-roll and [id number] he mobilized w/ good technique to EOB. R eturned to supine w/ fair+ technique. Assistive Device: bed rails, HOB elevated Supine to Sit, Level of [place]: contact guard assist, verbal cues required Sit to Supine, Level of [place]: contact guard assist, verbal cues required Safety Issues: decreased use of arms for pushing/pulling, decreased use of legs for bridgin g/pushing, impaired trunk control for bed mobility Impairments: decreased flexibility, ROM decreased, impaired balance, strength decreased, pa in, postural control impaired Transfers Mobilizing w/ light CGA, cues to maintain a safe distance w/ FWW. Cues to not twist. Toilet, Level of [place]: contact guard assist, verbal cues required Toilet, Assistive Device: 2 wheeled walker (FWW), commode (3 in 1)(commode over toilet) Walk-in shower, Level of [place]: contact guard assist, verbal cues required Walk-in shower, Assistive Device: 2 wheeled walker (FWW), shower chair, grab bars Safety Issues: step length decreased, weight-shifting ability decreased, balance decreased during turns Impairments: decreased flexibility, impaired balance, strength decreased, ROM decreased, po stural control impaired, pain ROM WFL w/i spinal precautions Strength WFL w/i spinal precautions OT Goal Review Date Most Recent Value STG Review Date 03/05/19 at 02/26/2019 1602 UB Dressing Goal Most Recent Value STG Status new at 02/26/2019 1602 STG [place] Level supervised at 02/26/2019 1602 LB Dressing Goal Most Recent Value STG Status new at 02/26/2019 1602 STG [place] Level supervised at 02/26/2019 1602 Toileting Goal Most Recent Value STG Status new at 02/26/2019 1602 STG [place] Level supervised at 02/26/2019 1602 Toilet Transfer Goal Most Recent Value STG Status new at 02/26/2019 1602 STG [place] Level supervised at 02/26/2019 1602 Tub/Shower Transfer Goal Most Recent Value Tub/Shower Type walk in shower stall at 02/26/2019 1602 STG Status new at 02/26/2019 1602 STG [place] Level supervised at 02/26/2019 1602 Electronically signed by: Carissa Dickerson, OT, 02/26/2019 17:17 lan of Care - Kin Amanda day, PT - 02/26/2019 2:25 PM PDT Physical Therapy Plan of Care Initial Evaluation, Treatment Note Summary: Jose Raul presents to physical therapy with impaired functional mobility and transfe rs s/p right decompressive laminectomies L2-S1. RN cleared pt for therapy, pt and spouse ag reeable to mobility assessment. Objective exam reveals impairments with aerobic capacity/end urance; ergonomics and body mechanics; functional endurance/activity tolerance; gait, locomo tion, and balance; motor function; muscle performance; posture; ventilation and respiration/ gas exchange. Pt able to reach EoB without physical assist, does require cues for log roll t echnique to maintain spinal precautions during bed mobility. Also able to complete sit<>radha d transfers and ambulate to/from bathroom with FWW and CGA. Pt reports pain level of 6-8/10 throughout session, states this is his "normal." RN debriefed at end of session. Barriers to discharge and functional limitations include decreased functional activity tole jose alejandro, decreased bed mobility, decreased functional transfers, decreased functional gait dis tance, decreased gait velocity, stairs at home, not yet able to mobilize at level safe for h ome discharge, spinal precautions and medical status. Jose Raul will benefit from therapeutic intervention to address impairments and increase safety and independence with activities necessary for safe discharge. Refer below for specific de tails regarding functional levels. Precautions/Limitations: falls, spinal, oxygen therapy device and L/min Precaution Comment: grade A brace (no brace), avoid excessive mobilization, light activity for first 3-5 days Previous Level of Function: Transferring: independent Ambulation: independent Toileting: independent Bathing: independent Dressing: independent Eating: independent Communication: understands/communicates without difficulty Swallowin-->swallows foods/liquids without difficulty Equipment Currently Used at Home: 4 wheeled walker (4WW), cane, straight, single point(only uses outside the house) Prior Functional Level Comment: Independent in ADLs, assists prn. Had cervical fusion w/ Dr. Stern a few years ago Potential available assistance at discharge: Significant Relationships: spouse Living Environment/Accessibility: Lives With: spouse Living Arrangements: apartment(ground level) Home Accessibility: stairs (1 railing present) Number of Stairs to Enter Home: 3 Number of Stairs Within Home: 0 Financial Concerns: none Transportation Available: none Living Environment Comment: walk in shower with small lip, shower bench and HHSH, standard height toilet but has commode riser seat, no grab bars in bathroom Patient/Family?s Goals: return home Rehabilitation potential: good, to achieve stated therapy goals Physical Therapy Discharge Recommendations are: Recommended discharge disposition: home with assist Post discharge physical therapy recommendation: other (see comments)(TBD) Equipment Recommendations: 2 wheeled walker (FWW) Planned Interventions: balance training, bed mobility training, gait training, home exerci se program, neuromuscular re-education, patient/family education, postural re-education, sta ir training, strengthening, transfer training Recommended Frequency: daily Patient Status/Goals: Reflects last filed data and may be from multiple contributors. Gait increased time/effort, CGA for general safety, cues throughout for safety/sequencing Level of [place]: contact guard assist, verbal cues required, 1 person + 1 person to m anage equipment Assistive Device: 2 wheeled walker (FWW) Distance (feet): 30 x 2 Gait Deviations: kortney decreased, double stance time increased, limb motion velocity decr eased, step length decreased, stride length decreased, stride width increased, [id number] ce ratio decreased, [id number] clearance decreased, weight-shifting ability decreased Safety Issues: balance decreased during turns, sequencing ability decreased, step length de creased, weight-shifting ability decreased Impairments: decreased flexibility, strength decreased, impaired balance, coordination impa ired, motor control impaired, postural control impaired, pain Stairs not tested this session, stair goal added d/t pt needing to navigate stairs at home Transfers increased time/effort, cues throughout for sequencing/technique, 2nd person present for saf ety and line management Sit-Stand, Level of [place]: contact guard assist, verbal cues required, 1 person + 1 person to manage equipment Stand-Sit, Level of [place]: contact guard assist, verbal cues required, 1 person + 1 person to manage equipment [id number], Assistive Device: 2 wheeled walker (FWW) Safety Issues: sequencing ability decreased, weight-shifting ability decreased Impairments: decreased flexibility, strength decreased, impaired balance, coordination impa ired, motor control impaired, postural control impaired, pain Bed Mobility increased time/effort, vc/tc for log roll technique, min A to lift LEs back into bed Assistive Device: bed rails, HOB elevated Supine to Sit, Level of [place]: stand by assist, verbal cues required, tactile cues r equired Sit to Supine, Level of [place]: minimal assist (75% patient effort), verbal cues requ ired, tactile cues required Safety Issues: decreased use of arms for pushing/pulling, decreased use of legs for bridgin g/pushing, impaired trunk control for bed mobility Impairments: decreased flexibility, strength decreased, coordination impaired, motor contro l impaired, postural control impaired, pain Balance no LOB throughout session Sitting Balance: Static: good balance Sitting Balance: Dynamic: good balance Standing Balance: Static: fair balance Standing Balance: Dynamic: fair balance Functional Endurance fair for activities presented, limited primarily by pain ROM grossly WFL Strength grossly WFL [facility] BASIC MOBILITY Turning from your back to your side while in a flat bed without using bedrails?: min assist , CGA, SBA, Supervision/a little help Moving from lying on your back to sitting on the side of a flat bed without using bedrails? : min assist, CGA, SBA, Supervision/a little help Standing up from a chair using your arms (e.g. wheelchair, or bedside chair)?: min assist, CGA, SBA, Supervision/a little help Moving to and from a bed to a chair (including a wheelchair)?: min assist, CGA, SBA, Superv ision/a little help To walk in a hospital room?: min assist, CGA, SBA, Supervision/a little of help Climbing 3-5 steps with a railing?: min assist, CGA, SBA, Supervision/a little help(average ) Total Basic Mobility Six Click AM-PAC: 18 Completed the [facility] Activity Measure for Post Acute Care (AM-PAC) "6 Clicks" Ba sic Mobility Inpatient Short Form. This version of the AM-PAC is an assessment tool used to measure a person's level of disability in performing basic mobility tasks. Jose Raul's score i ndicates a performance of 46.58% impairment in the functioning of basic mobility. Raw Score - Functional Limitation % (for CMS) - "Severity Modifier" CN 6 - 100.00 CM 7 - 92.36 8 - 86.62 9 - 81.38 CL 10 - 76.75 11 - 72.57 12 - 68.66 13 - 64.91 14 - 61.29 CK 15 - 57.70 16 - 54.16 17 - 50.57 18 - 46.58 19 - 41.77 CJ 20 - 35.83 21 - 28.97 22 - 20.91 CI 23 - 11.2 CH 24 - 0.00 Predicted Discharge During Acute Hospitalization (Raw Score) Home = 20.1 With assist = 17.9 SNF = 14 IRF = 13.6 LTAC = 11.5 PT Goal Review Date Most Recent Value STG Review Date 03/05/19 at 02/26/2019 1425 All Bed Mobility Goal Most Recent Value STG Status new at 02/26/2019 1425 STG [place] Level modified independent at 02/26/2019 1425 STG Comments log roll technique at 02/26/2019 1425 Vkh-[id number]-Ygs Goal Most Recent Value STG Status new at 02/26/2019 1425 STG [place] Level modified independent at 02/26/2019 1425 STG Assistive Device 2 wheeled walker (FWW) at 02/26/2019 1425 Gait Goal Most Recent Value STG Status new at 02/26/2019 1425 STG [place] Level modified independent at 02/26/2019 1425 STG Assistive Device 2 wheeled walker (FWW) at 02/26/2019 1425 STG Distance (feet) 50 at 02/26/2019 1425 Stair Goal Most Recent Value STG Status new at 02/26/2019 1425 STG [place] Level modified independent at 02/26/2019 1425 STG Assistive Device 1 rail at 02/26/2019 1425 STG Number of Stairs 3 at 02/26/2019 1425 Additional Goal #1 PT Most Recent Value STG Status new at 02/26/2019 1425 STG Pt will verbalize understanding of spinal precautions and demonstrate adherence to pre cautions during all functional mobility. at 02/26/2019 1425 Electronically signed by: Amanda Espinosa, PT, 02/26/2019 17:49 lan of Care - Ryan Shahid, HERBIE - 02/26/2019 1:33 PM PDTProblem: Prevent post operative hypoxia by 03/01/19 Prevent post operative atelectasis/pneumonia by 03/01/19 Prevent bronchospasm for duration of stay Plan Titrate oxygen to room air keeping oxygen saturation at 92% Patient to achieve 75% of predicted goal for inspirometer Prevent bronchospasms for duration of stay Patient oxygen saturation on 4 l/m = 96%, did not titrate at this time. Patient breath sounds expiratory wheezes t/o. Inspirometer done to 100% of predicted normal with good daniella hnique. Will continue to follow. p Note - Ke Barakat MD - 02/26/2019 10:24 AM Robin Palafox February 26, 2019 Preoperative diagnosis: Lumbar spinal stenosis L2-L5 inclusive Postoperative diagnosis: Lumbar spinal stenosis L2-S1 inclusive Operation performed: Right decompressive laminectomies L2-S1 inclusive with continuous intr aoperative neural monitoring Surgeon: Denton Barakat M.D. Asst.: Cecil Hensley PA-C Indications this patient presented with intractable low back and right greater than left lo wer extremity pain. MRI scanning disclosed multilevel lumbar spinal stenosis, and I offered him L2-5 decompressive laminectomies on the right. Findings at operation: The patient had significant spinal stenosis at the level of the L5-S 1 interspace and so I needed to carry the laminectomy down into the S1 lamina. Bone quality was good. Neuro monitoring in the main was stable although the patient's distal right lowe r extremity potentials declined slightly toward the end of the case. Procedure: After the institution satisfactory general endotracheal anesthesia and placement of multiple needle electrodes for neuro monitoring patient was turned from supine on the [facility] to prone on the Arian table. All potential pressure points were carefully padded and protected. A marking x-ray was taken and the back was sterilely prepared and draped. A timeout was accomplished. I injected the skin and deep tissues of the back with 1% Xylocaine containing epinephrine a nd then made an approximately 6 inch long incision from the spinous processe of L1 to that o f S1. Self-retaining retractors were placed and I used a high-speed drill to thin the moon ae and medial aspect of the facet joints from L2-L5. I then completed the laminectomies wit h various small Kerrison punches; upon completing the L5 laminectomy and noting persistent n eurocompression I carried the laminectomy well down into the S1 level. When I was satisfied with the decompression both at the midline and in the lateral recess a t each level hemostasis is obtained with bipolar cautery and bone wax and a slurry of FloSea l. The self-retaining retractors were removed. The dorsal fascia was reattached to the spi nous processes and interspinous ligament with #1 and #0 Vicryl sutures. Superficial fascia was brought together with #2-0 Vicryl sutures. The subcutis was approximated with #3-0 Vicr yl sutures and final skin closure was accomplished with stainless steel clips. A silver imp regnated dressing was applied. Time of operation was approximately an hour and 45 minutes. About 200 mL of blood were lost and no blood was replaced. The patient seemed to tolerate the procedure well and was sent to the recovery room in a satisfactory postanesthetic state. nterval H&P Note ( unlinked) - Denton Barakat MD - 02/26/2019 7:42 AM PDTThere are no significant changes in the H&P since Mr Hensley's previous note. For multilevel lumbar decompressive laminecto mies documented in t his encounter Plan of Treatment + +------+--------+ + + | Name | Type | Priori | Associated Diagnoses | Order Schedule | | | | ty | | | + +------+--------+ + + | DME: Walker | DME | Routin | Neurogenic | DME 1 Time for 1 | | | | e | claudication | Occurrences starting | | | | | Osteoarthritis of | 02/26/2019 until | | | | | spine with | 02/26/2019 | | | | | radiculopathy, | | | | | | lumbar region Low | | | | | | back pain, | | | | | | unspecified back | | | | | | pain laterality, | | | | | | unspecified | | | | | | chronicity, with | | | | | | sciatica presence | | | | | | unspecified | | + +------+--------+ + + | DME: Misc Sock aide, | DME | Routin | Neurogenic | DME 1 Time for 1 | | shoe horn and | | e | claudication | Occurrences starting | | 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 | | | Osteoarthritis of | 02/27/2019 until | | | | | spine with | 02/27/2019 | | | | | radiculopathy, | | | | | | lumbar region Low | | | | | | back pain, | | | | | | unspecified back | | | | | | pain laterality, | | | | | | unspecified | | | | | | chronicity, with | | | | | | sciatica presence | | | | | | unspecified | | + +------+--------+ + + documented as of this encounter Procedures + +--------+ + + + | Procedure Name | Priori | Date/Time | Associated Diagnosis | Comments | | | ty | | | | + +--------+ + + + | MENDOZA NOLASCO STATS NO | Routin | 02/26/2019 | | Results for this | | CHARGE | e | 9:59 AM | | procedure are in the | | | | PDT | | results section. | + +--------+ + + + | LAMINECTOMY LUMBAR | | 02/26/2019 | Neurogenic | | | | | 8:00 AM | claudication | | | | | PDT | Osteoarthritis of | | | | | | spine with | | | | | | radiculopathy, | | | | | | lumbar region Low | | | | | | back pain, | | | | | | unspecified back | | | | | | pain laterality, | | | | | | unspecified | | | | | | chronicity, with | | | | | | sciatica presence | | | | | | unspecified | | + +--------+ + + + +---+--------+ | | Case | | | Notes | | | | | | Instru | | | ments/ | | | Specia | | | l | | | Equipm | | | ent: | | | Drill | | | Positi | | | on/Seq | | | uence: | | | | | | Prone, | | | Right | | | side | | | upTabl | | | e: | | | Jackso | | | n Egan | | | Frame | +---+--------+ | | | | | Specia | | | l | | | Needs | | | | | | Specia | | | lty | | | Care | | | Needed | | | : Yes | | | | | | confir | | | med | | | 8/2 | +---+--------+ + +--------+ +---+ + | POC GLUCOSE | Routin | 02/26/2019 | | Results for this | | | e | 7:02 AM | | procedure are in the | | | | PDT | | results section. | + +--------+ +---+ + documented in this encounter Results MENDOZA Ohara No Charge (02/26/2019 9:59 AM PDT) + + | Specimen | + + | | + + + + + | Narrative | Performed At | + + + | This exam has been auto-finalized. It was entered for statistical | [facility] | | purposes only. | | + + + + +---------+ + + | Performing | Address | City/State/Zipcode | Phone Number | | Organization | | | | + +---------+ + + | [facility] | | | | + +---------+ + + POC Glucose (02/26/2019 7:02 AM PDT) + +-------+ + + + | Component | Value | Ref Range | Performed | Pathologist | | | | | At | Signature | + +-------+ + + + | Glucose, | 108 | 70 - 109 mg/dL | [facility] | [facility] | | | | | | [facility] | | + +-------+ + + + + + | Specimen | + + | Blood | + + + + + + + | Performing | Address | City/State/Zipcode | Phone Number | | Organization | | | | + + + + + | [facility] | [address] | [place] | [phone] | | [facility] | | [phone] | | | - LABORATORY | | | | + + + + + documented in this encounter Visit Diagnoses + + | Diagnosis | + + | Neurogenic claudication Spinal stenosis, lumbar region, with neurogenic claudication | + + | Osteoarthritis of spine with radiculopathy, lumbar region | + + | Low back pain, unspecified back pain laterality, unspecified chronicity, with sciatica | | presence unspecified | + + | Other spondylosis with radiculopathy, lumbar region | + + documented in this encounter Admitting Diagnoses + + | Diagnosis | + + | Neurogenic claudication Spinal stenosis, lumbar region, with neurogenic claudication | + + | Osteoarthritis of spine with radiculopathy, lumbar region | + + | Low back pain, unspecified back pain laterality, unspecified chronicity, with sciatica | | presence unspecified | + + documented in this encounter Administered Medications + +--------+ +--------+------+------+ | Medication Order | MAR | Action | Dose | Rate | Site | | | Action | Date | | | | + +--------+ +--------+------+------+ | acetaminophen (TYLENOL) tablet | Given | 02/29/20 | 650 mg | | | | 650 mg 650 mg, Oral, EVERY 4 | | 19 8:47 | | | | | HOURS (6 times per day), First | | AM PDT | | | | | dose on Tue02/27/19 at 1300, Hold | | | | | | | midnight dose if patient is | | | | | | | asleep., | | | | | | + +--------+ +--------+------+------+ +-------+ +--------+---+---+ | Given | 02/29/20 | 650 mg | | | | | 19 4:28 | | | | | | AM PDT | | | | +-------+ +--------+---+---+ | Given | 02/28/20 | 650 mg | | | | | 19 11:39 | | | | | | PM PDT | | | | +-------+ +--------+---+---+ +---+---+ | | | +---+---+ + +-------+ +--------+---+---+ | albuterol 2.5 mg/3 mL nebulizer | Given | 02/28/20 | 2.5 mg | | | | solution 2.5 mg 2.5 mg, | | 19 3:49 | | | | | Nebulization, EVERY 12 HOURS | | AM PDT | | | | | INTERVAL, First dose on Tue | | | | | | | 02/26/19 at 1500, RT will | | | | | | | administer. Therapeutic | | | | | | | interchange for ADVAIR., | | | | | | + +-------+ +--------+---+---+ +-------+ +--------+---+---+ | Given | 02/27/20 | 2.5 mg | | | | | 19 1:06 | | | | | | PM PDT | | | | +-------+ +--------+---+---+ +---+---+ | | | +---+---+ + +-------+ +--------+---+---+ | albuterol 5 mg/mL concentrated | Given | 02/27/20 | 2.5 mg | | | | nebulizer solution 2.5 mg 2.5 | | 19 8:41 | | | | | mg, Nebulization, RT BID, First | | PM PDT | | | | | dose on Tue02/26/19 at 2100, RT | | | | | | | will administer. Mix albuterol | | | | | | | 2.5 mg/0.5 mL with budesonide 0.5 | | | | | | | mg/2 mL. Therapeutic | | | | | | | interchange for ADVAIR., | | | | | | + +-------+ +--------+---+---+ +---+---+ | | | +---+---+ + +-------+ +-------+---+---+ | atorvaSTATin (LIPITOR) tablet | Given | 02/28/20 | 80 mg | | | | 80 mg 80 mg, Oral, NIGHTLY, | | 19 8:11 | | | | | First dose on Tue02/26/19 at 2100, | | PM PDT | | | | | Post-op/Phase II | | | | | | + +-------+ +-------+---+---+ +-------+ +-------+---+---+ | Given | 02/27/20 | 80 mg | | | | | 19 8:18 | | | | | | PM PDT | | | | +-------+ +-------+---+---+ +---+---+ | | | +---+---+ + +-------+ +--------+---+---+ | budesonide (PULMICORT) 0.5 mg/2 | Given | 02/29/20 | 0.5 mg | | | | mL nebulizer solution 0.5 mg | | 19 9:54 | | | | | 0.5 mg, Nebulization, RT BID, | | AM PDT | | | | | First dose on Tue02/26/19 at 2100, | | | | | | | RT will administer. Shake well. | | | | | | | Protect from light. Rinse mouth | | | | | | | after use. Therapeutic | | | | | | | interchange for ADVAIR., | | | | | | + +-------+ +--------+---+---+ +-------+ +--------+---+---+ | Given | 02/28/20 | 0.5 mg | | | | | 19 9:09 | | | | | | PM PDT | | | | +-------+ +--------+---+---+ | Given | 02/28/20 | 0.5 mg | | | | | 19 8:46 | | | | | | AM PDT | | | | +-------+ +--------+---+---+ +---+---+ | | | +---+---+ + +-------+ +--------+---+---+ | buPROPion (WELLBUTRIN SR) 12 hr | Given | 02/29/20 | 150 mg | | | | tablet 150 mg 150 mg, Oral, 2 | | 19 8:47 | | | | | TIMES DAILY, First dose on Mon | | AM PDT | | | | | 02/26/19 at 1215, Do not cut or | | | | | | | crush., Post-op/Phase II | | | | | | + +-------+ +--------+---+---+ +-------+ +--------+---+---+ | Given | 02/28/20 | 150 mg | | | | | 19 8:18 | | | | | | PM PDT | | | | +-------+ +--------+---+---+ | Given | 02/28/20 | 150 mg | | | | | 19 9:05 | | | | | | AM PDT | | | | +-------+ +--------+---+---+ +---+---+ | | | +---+---+ + +-------+ +-------+---+---+ | busPIRone (BUSPAR) tablet 15 mg | Given | 02/29/20 | 15 mg | | | | 15 mg, Oral, 2 TIMES DAILY, | | 19 8:46 | | | | | First dose on Tue02/26/19 at 1215, | | AM PDT | | | | | Post-op/Phase II | | | | | | + +-------+ +-------+---+---+ +-------+ +-------+---+---+ | Given | 02/28/20 | 15 mg | | | | | 19 8:10 | | | | | | PM PDT | | | | +-------+ +-------+---+---+ | Given | 02/28/20 | 15 mg | | | | | 19 9:05 | | | | | | AM PDT | | | | +-------+ +-------+---+---+ +---+---+ | | | +---+---+ + +---------+ +-----+ +---+ | ceFAZolin (ANCEF, KEFZOL) 100 | New Bag | 02/28/20 | 2 g | 40 mL/hr | | | mg/mL IV syringe 2 g 2 g, | | 19 1:28 | | | | | Intravenous, Administer over 30 | | AM PDT | | | | | Minutes, EVERY 8 HOURS INTERVAL, | | | | | | | First dose on Tue02/26/19 at 1600, | | | | | | | For 2 doses, Start 8 hours after | | | | | | | previous dose. Last dose to be | | | | | | | given within 24 hours of surgery | | | | | | | end time, Post-op/Phase II, | | | | | | | Indications: Surgical Prophylaxis | | | | | | + +---------+ +-----+ +---+ +---------+ +-----+ +---+ | New Bag | 02/27/20 | 2 g | 40 mL/hr | | | | 19 4:44 | | | | | | PM PDT | | | | +---------+ +-----+ +---+ +---+---+ | | | +---+---+ + +-------+ +-------+---+---+ | cyclobenzaprine (FLEXERIL) | Given | 02/28/20 | 10 mg | | | | tablet 10 mg 10 mg, Oral, EVERY | | 19 7:02 | | | | | 8 HOURS PRN, Muscle spasms, | | PM PDT | | | | | Starting 02/26/19 at 1149, | | | | | | | Post-op/Phase II | | | | | | + +-------+ +-------+---+---+ +-------+ +-------+---+---+ | Given | 02/28/20 | 10 mg | | | | | 19 10:44 | | | | | | AM PDT | | | | +-------+ +-------+---+---+ | Given | 02/28/20 | 10 mg | | | | | 19 1:28 | | | | | | AM PDT | | | | +-------+ +-------+---+---+ + +---+ | | | + +---+ | diphenhydrAMINE (BENADRYL) 12.5 | | | mg/5 mL liquid 25 mg 25 mg, | | | Oral, EVERY 4 HOURS PRN, Itching, | | | Starting 02/26/19 at 1149, | | | Oral route is preferred., | | | Post-op/Phase II | | + +---+ | | | + +---+ | diphenhydrAMINE (BENADRYL) | | | injection 12.5 mg 12.5 mg, | | | Intravenous, EVERY 4 HOURS PRN, | | | Itching, Starting Tue02/26/19 at | | | 1149, Oral route is preferred., | | | Post-op/Phase II | | + +---+ | | | + +---+ | diphenhydrAMINE (BENADRYL) | | | tablet 25 mg 25 mg, Oral, EVERY | | | 4 HOURS PRN, Itching, Starting | | | Tue02/26/19 at 1149, Oral route is | | | preferred., Post-op/Phase II | | + +---+ | | | + +---+ + +-------+ +--------+---+---+ | docusate sodium (COLACE) | Given | 02/28/20 | 100 mg | | | | capsule 100 mg 100 mg, Oral, | | 8:10 | | | | | TIMES DAILY, First dose on Mon | | PM PDT | | | | | 02/26/19 at 1215, First line agent | | | | | | | for constipation, Post-op/Phase | | | | | | | II | | | | | | + +-------+ +--------+---+---+ +-------+ +--------+---+---+ | Given | 02/27/20 | 100 mg | | | | | 19 8:18 | | | | | | PM PDT | | | | +-------+ +--------+---+---+ +---+---+ | | | +---+---+ + +-------+ +-------+---+---+ | DULoxetine (CYMBALTA) DR | Given | 02/28/20 | 60 mg | | | | capsule 60 mg 60 mg, Oral, | | 19 8:10 | | | | | NIGHTLY, First dose on Tue02/26/19 | | PM PDT | | | | | at 2100, Do not open capsule., | | | | | | | Post-op/Phase II | | | | | | + +-------+ +-------+---+---+ +-------+ +-------+---+---+ | Given | 02/27/20 | 60 mg | | | | | 19 8:18 | | | | | | PM PDT | | | | +-------+ +-------+---+---+ +---+---+ | | | +---+---+ + +-------+ +-------+---+---+ | famotidine (PEPCID) tablet 20 | Given | 02/29/20 | 20 mg | | | | mg 20 mg, Oral, 2 TIMES DAILY, | | 19 8:46 | | | | | First dose on Tue02/26/19 at 1215, | | AM PDT | | | | | Post-op/Phase II | | | | | | + +-------+ +-------+---+---+ +-------+ +-------+---+---+ | Given | 02/28/20 | 20 mg | | | | | 19 8:10 | | | | | | PM PDT | | | | +-------+ +-------+---+---+ | Given | 02/28/20 | 20 mg | | | | | 19 9:05 | | | | | | AM PDT | | | | +-------+ +-------+---+---+ +---+---+ | | | +---+---+ + +-------+ +--------+---+---+ | gabapentin (NEURONTIN) capsule | Given | 02/29/20 | 900 mg | | | | 900 mg 900 mg, Oral, 3 TIMES | | 19 8:46 | | | | | DAILY, First dose on 02/26/19 | | AM PDT | | | | | at 1400, Post-op/Phase II | | | | | | + +-------+ +--------+---+---+ +-------+ +--------+---+---+ | Given | 02/28/20 | 900 mg | | | | | 19 8:09 | | | | | | PM PDT | | | | +-------+ +--------+---+---+ | Given | 02/28/20 | 900 mg | | | | | 19 1:06 | | | | | | PM PDT | | | | +-------+ +--------+---+---+ +---+---+ | | | +---+---+ + +-------+ +--------+---+---+ | guaiFENesin (MUCINEX) ER tablet | Given | 02/29/20 | 600 mg | | | | 600 mg 600 mg, Oral, 2 TIMES | | 19 8:46 | | | | | DAILY, First dose on 02/26/19 | | AM PDT | | | | | at 1215, Do not cut or crush. | | | | | | | Take with a full glass of water., | | | | | | | Post-op/Phase II | | | | | | + +-------+ +--------+---+---+ +-------+ +--------+---+---+ | Given | 02/28/20 | 600 mg | | | | | 19 8:11 | | | | | | PM PDT | | | | +-------+ +--------+---+---+ | Given | 02/28/20 | 600 mg | | | | | 19 9:05 | | | | | | AM PDT | | | | +-------+ +--------+---+---+ +---+---+ | | | +---+---+ + +-------+ +---------+---+---+ | ipratropium (ATROVENT) 500 | Given | 02/29/20 | 500 mcg | | | | mcg/2.5 mL nebulizer solution 500 | | 19 9:48 | | | | | mcg 500 mcg, Nebulization, RT | | AM PDT | | | | | Q6H, First dose on 02/26/19 at | | | | | | | 1500, Post-op/Phase II | | | | | | + +-------+ +---------+---+---+ +-------+ +---------+---+---+ | Given | 02/29/20 | 500 mcg | | | | | 19 4:11 | | | | | | AM PDT | | | | +-------+ +---------+---+---+ | Given | 02/28/20 | 500 mcg | | | | | 19 9:09 | | | | | | PM PDT | | | | +-------+ +---------+---+---+ +---+---+ | | | +---+---+ + +-------+ +-------+---+---+ | isosorbide mononitrate (IMDUR) | Given | 02/29/20 | 30 mg | | | | ER tablet 30 mg 30 mg, Oral, | | 19 8:46 | | | | | EVERY MORNING, First dose on Mon | | AM PDT | | | | | 02/26/19 at 1215, Post-op/Phase II | | | | | | + +-------+ +-------+---+---+ +-------+ +-------+---+---+ | Given | 02/28/20 | 30 mg | | | | | 19 9:05 | | | | | | AM PDT | | | | +-------+ +-------+---+---+ +---+---+ | | | +---+---+ + +---------+ +--------+-------+---+ | lactated ringers (LR) infusion | New Bag | 02/27/20 | 1,000 | 100 | | | at 100 mL/hr, Intravenous, | | 19 7:04 | mLs | mL/hr | | | CONTINUOUS, Starting 02/26/19 | | AM PDT | | | | | at 0700, Pre-op | | | | | | + +---------+ +--------+-------+---+ +---+---+ | | | +---+---+ + +-------+ +---------+---+---+ | levalbuterol (XOPENEX) 0.63 | Given | 02/27/20 | 0.63 mg | | | | mg/3 mL nebulizer solution 0.63 | | 19 7:52 | | | | | mg 0.63 mg, Nebulization, RT | | AM PDT | | | | | Once, Tue02/26/19 at 0800, For 1 | | | | | | | dose, RT will administer. Protect | | | | | | | from light., Pre-op | | | | | | + +-------+ +---------+---+---+ +---+---+ | | | +---+---+ + +-------+ +---------+---+---+ | levalbuterol (XOPENEX) 1.25 | Given | 02/29/20 | 1.25 mg | | | | mg/3 mL nebulizer solution 1.25 | | 19 9:40 | | | | | mg 1.25 mg, Nebulization, RT | | AM PDT | | | | | Q6H, First dose on Tue02/27/19 at | | | | | | | 0430, RT will administer. Protect | | | | | | | from light., | | | | | | + +-------+ +---------+---+---+ +-------+ +---------+---+---+ | Given | 02/29/20 | 1.25 mg | | | | | 19 4:11 | | | | | | AM PDT | | | | +-------+ +---------+---+---+ | Given | 02/28/20 | 1.25 mg | | | | | 19 9:09 | | | | | | PM PDT | | | | +-------+ +---------+---+---+ +---+---+ | | | +---+---+ + +-------+ +---------+---+---+ | levothyroxine (SYNTHROID) | Given | 02/29/20 | 175 mcg | | | | tablet 175 mcg 175 mcg, Oral, | | 19 6:37 | | | | | DAILY BEFORE BREAKFAST, First | | AM PDT | | | | | dose on Tue02/26/19 at 1215, Give | | | | | | | before breakfast., Post-op/Phase | | | | | | | II | | | | | | + +-------+ +---------+---+---+ +-------+ +---------+---+---+ | Given | 02/28/20 | 175 mcg | | | | | 19 6:43 | | | | | | AM PDT | | | | +-------+ +---------+---+---+ +---+---+ | | | +---+---+ + +-------+ +--------+---+---+ | melatonin tablet 1.5 mg 1.5 | Given | 02/28/20 | 1.5 mg | | | | mg, Oral, NIGHTLY, First dose on | | 19 8:11 | | | | | 02/27/19 at 2100 | | PM PDT | | | | + +-------+ +--------+---+---+ +---+---+ | | | +---+---+ + +---------+ + +--------+---+ | methocarbamol (ROBAXIN) 1,000 | New Bag | 02/27/20 | 1,000 mg | 146.7 | | | mg in sodium chloride 0.9% 100 mL | | 19 12:47 | | mL/hr | | | IVPB 1,000 mg, Intravenous, | | PM PDT | | | | | Administer over 45 Minutes, ONCE, | | | | | | | 02/26/19 at 1215, For 1 dose, | | | | | | | Give IV dose immediately postop, | | | | | | | Post-op/Phase II | | | | | | + +---------+ + +--------+---+ +---+---+ | | | +---+---+ + +-------+ + +---+---+ | methocarbamol (ROBAXIN) tablet | Given | 02/29/20 | 1,500 mg | | | | 1,500 mg 1,500 mg, Oral, EVERY 6 | | 19 10:38 | | | | | HOURS PRN, Muscle spasms, | | AM PDT | | | | | Starting Tue02/26/19 at 1215, | | | | | | | Post-op/Phase II | | | | | | + +-------+ + +---+---+ +-------+ + +---+---+ | Given | 02/28/20 | 1,500 mg | | | | | 19 2:41 | | | | | | PM PDT | | | | +-------+ + +---+---+ | Given | 02/28/20 | 1,500 mg | | | | | 19 6:43 | | | | | | AM PDT | | | | +-------+ + +---+---+ +---+---+ | | | +---+---+ + +-------+ +--------+---+---+ | metoprolol tartrate (LOPRESSOR) | Given | 02/29/20 | 100 mg | | | | tablet 100 mg 100 mg, Oral, 2 | | 19 8:47 | | | | | TIMES DAILY, First dose on Mon | | AM PDT | | | | | 02/26/19 at 1215, Post-op/Phase II | | | | | | + +-------+ +--------+---+---+ +-------+ +--------+---+---+ | Given | 02/28/20 | 100 mg | | | | | 19 9:05 | | | | | | AM PDT | | | | +-------+ +--------+---+---+ | Given | 02/27/20 | 100 mg | | | | | 19 8:17 | | | | | | PM PDT | | | | +-------+ +--------+---+---+ +---+---+ | | | +---+---+ + +-------+ +-------+---+---+ | montelukast (SINGULAIR) tablet | Given | 02/29/20 | 10 mg | | | | 10 mg 10 mg, Oral, DAILY, First | | 19 8:46 | | | | | dose on Tue02/26/19 at 1215, | | AM PDT | | | | | Post-op/Phase II | | | | | | + +-------+ +-------+---+---+ +-------+ +-------+---+---+ | Given | 02/28/20 | 10 mg | | | | | 19 9:04 | | | | | | AM PDT | | | | +-------+ +-------+---+---+ +---+---+ | | | +---+---+ + +-------+ +------+---+---+ | morphine injection 2-5 mg 2-5 | Given | 02/28/20 | 4 mg | | | | mg, Intravenous, EVERY 4 HOURS | | 19 3:18 | | | | | PRN, Pain, Starting Tue02/26/19 at | | AM PDT | | | | | 1149, If oral route not an | | | | | | | option. Slow IV push, not faster | | | | | | | than 2mg/minute. First dose must | | | | | | | be lowest dose, titrate to | | | | | | | effective dose by repeat of | | | | | | | lowest dose every 30 minutes prn | | | | | | | pain, may not exceed maximum dose | | | | | | | ordered per interval. Use [employer] | | | | | | | Sedation Scale., Post-op/Phase | | | | | | | II | | | | | | + +-------+ +------+---+---+ +-------+ +------+---+---+ | Given | 02/27/20 | 2 mg | | | | | 19 10:39 | | | | | | PM PDT | | | | +-------+ +------+---+---+ + +---+ | | | + +---+ | naloxone (NARCAN) 0.4 mg/mL | | | injection 0.04 mg 0.04 mg, | | | Intravenous, PRN, Apnea, | | | Decreased Responsiveness, | | | Starting Tu02/27/19 at 1235, mix | | | 0.4mg naloxone with 9 ml normal | | | saline in syringe and give 0.04 | | | mg = 1 ml initial dose. Give | | | every 2 minutes as needed | | | Initiate emergency response and | | | contact provider, | | + +---+ | | | + +---+ + +-------+ +-------+---+---+ | oxyCODONE (ROXICODONE) tablet | Given | 02/29/20 | 15 mg | | | | 5-15 mg 5-15 mg, Oral, EVERY 4 | | 19 8:46 | | | | | HOURS PRN, Pain, Starting Mon | | AM PDT | | | | | 02/26/19 at 1149, First dose must | | | | | | | be the lowest dose, can titrate | | | | | | | to effective dose by repeat of | | | | | | | lowest dose every 60 minutes prn | | | | | | | pain, may not exceed maximum dose | | | | | | | ordered per interval. Use Pasero | | | | | | | Sedation Scale., Post-op/Phase | | | | | | | II | | | | | | + +-------+ +-------+---+---+ +-------+ +-------+---+---+ | Given | 02/28/20 | 15 mg | | | | | 19 7:02 | | | | | | PM PDT | | | | +-------+ +-------+---+---+ | Given | 02/28/20 | 15 mg | | | | | 19 2:41 | | | | | | PM PDT | | | | +-------+ +-------+---+---+ + +---+ | | | + +---+ | pharmacy consult - pain | | | PHARMACY CONSULT, Starting Tue | | | 02/27/19 at 0811, Pharmacy to dose | | | which medication? pain medication | | + +---+ | | | + +---+ + +-------+ +--------+---+---+ | senna (SENOKOT) tablet 8.6 mg | Given | 02/28/20 | 8.6 mg | | | | 8.6 mg, Oral, 2 TIMES DAILY, | | 19 8:11 | | | | | First dose on 02/26/19 at 1215, | | PM PDT | | | | | If docusate ineffective or not | | | | | | | ordered, Post-op/Phase II | | | | | | + +-------+ +--------+---+---+ +-------+ +--------+---+---+ | Given | 02/27/20 | 8.6 mg | | | | | 19 8:18 | | | | | | PM PDT | | | | +-------+ +--------+---+---+ +---+---+ | | | +---+---+ + + + +---+ +---+ | sodium chloride 0.9% (NS) | Rate/Dos | 02/27/20 | | 25 mL/hr | | | infusion at 100 mL/hr, | e Change | 19 10:45 | | | | | Intravenous, CONTINUOUS, Starting | | PM PDT | | | | | 02/26/19 at 1215, | | | | | | | Post-op/Phase II | | | | | | + + + +---+ +---+ + + +---+ +---+ | Rate/Dose Change | 02/27/20 | | 50 mL/hr | | | | 19 8:29 | | | | | | PM PDT | | | | + + +---+ +---+ | New Bag | 02/27/20 | | 100 | | | | 19 12:44 | | mL/hr | | | | PM PDT | | | | + + +---+ +---+ +---+---+ | | | +---+---+ documented in this encounter
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
--- OUTSIDE RECORDS SUMMARY | ~2020-03-18 | XMS | Encounter Summary ---
Demographics + + + | Address | [address] | | | [place] [address] | + + + | Home Phone | | + + + | Preferred Language | Unknown | + + + | Marital Status | | + + + | Hindu Affiliation | Unknown | + + + [...] Team Providers + +------+ + | [employer] Consulting Manager Name | Role | Phone | + +------+ + | Gary Gomez MD | PCP | | + +------+ + Reason for Visit +--------+--------+ + | Reason | Onset | Comments | | | Date | | +--------+--------+ + | Other | 01/12/ | records sent | | | 2016 | | +--------+--------+ + Encounter Details +--------+ + + + + | Date | Type | Department | Care Team | Description | +--------+ + + + + | 01/12/ | Telephone | [facility] | Latonia Olson, | Other (records sent) | | 2017 | | CARDIOLOGY [address] | MD [address] | | | | | [place], | [place], [place] | | | | | [place] [address] | [address] | | | | | [phone] | | | +--------+ + + + [...] this encounter Miscellaneous Notes Telephone Encounter - Diana Wilson RN - 01/12/2017 9:12 AM PDTOffice note from 7 along with script for Effient faxed to [facility] at [phone] .............................. .............Diana Wilson RN on 01/12/17 at 9:12 documented in this encounter Plan of Treatment Not on filedocumented as of this encounter Visit Diagnoses Not on filedocumented in this encounter"
--- OUTSIDE RECORDS SUMMARY | ~2020-03-18 | XMS | Encounter Summary ---
Demographics + + + | Address | [address] | | | [place] [address] | + + + | Home Phone [...] | Author | [facility] | | | and [place] | + [...] Team Providers + +------+ + | Care Electronic Assembler Group Leader Name | Role | Phone | + +------+ + | Gary Gomez MD | PCP | | + +------+ + Encounter Details +--------+ + + + + | Date | Type | Department | Care Team | Description | +--------+ + + + + | 01/21/ | Orders Only | [facility] | Emily Cowan, | Status post cervical | | 2014 | | [facility] | [facility]rapist | spinal fusion | | | | [address] | | | | | | [place] | | | | | | [address] | | | | | | [phone] | | | +--------+ + + + [...] | | Former User | | | 10/15/ | | | | | 14 | [...] | + +--------+ + + + | CULTURE, WOUND, | Routin | 01/21/2015 | Status post | Results for this | | SMEAR | e | 2:55 PM | cervical spinal | procedure are in the | | | | PDT | fusion | results section. | + +--------+ + + + documented in this encounter Results Culture, Wound, Smear (01/21/2015 2:55 PM PDT) + + + + + + | Component | Value | Ref Range | Performed | Pathologist | | | | | At | Signature | + + + + + + | Culture | 3+ Coagulase negative | | [facility] | | | | StaphylococcusComment: | | [facility] | | | | Consistent with skin | | MED[facility] | | | | [facility]. | | CENTER - | | | | | | LABORATORY | | + + + + + + | Gram Stain | No white blood cells | | [facility] | | | Result | (PMNs) seen | | [facility] | | | | | | MEDICAL | | | | | | CENTER - | | | | | | LABORATORY | | + + + + + + | Gram Stain | 1+ Epithelial cells | | [facility] | | | Result | | | [facility] | | | | | | MED[facility] | | | | | | CENTER - | | | | | | LABORATORY | | + + + + + + | Gram Stain | 1+ Gram positive cocci | | [facility] | | | Result | | | [facility] | | | | | | [facility] | | | | | | [facility] - | | | | | | LABORATORY | | + + + + + + + + | Specimen | + + | Wound - Entire back | | (body structure) | + + + + + + + | Performing | Address | City/State/Zipcode | Phone Number | | Organization | | | | + + + + + | [facility] | [address] | [place], [place] | [phone] | | [facility] | | [address] | | | - LABORATORY | | | | + + + + + documented in this encounter Visit Diagnoses + + | Diagnosis | + + | Status post cervical spinal fusion Arthrodesis status | + + documented in this encounter"
--- OUTSIDE RECORDS SUMMARY | ~2020-03-18 | XMS | Encounter Summary ---
Demographics + + + | Address | [address] | | | [place] [address] | + + + | Home Phone | | + + + | Preferred Language | Unknown | + + + | Marital Status | | + + + | Gnosticist Affiliation | Unknown | + + + | Race | White | + + + | Ethnic Group | Not or | + + + Author + + + | Author | [facility] | | | and [place] | + + + | Organization | [facility] | | | [...] Team Providers + +------+ + | Care Credit Cashier Name | Role | Phone | + [...] Description | +--------+---------+ + + + | 03/09/ | Office | [facility] | Latonia Olson, | ST elevation | | 2017 | Visit | [facility] | MD [address] | myocardial | | | | REHABILITATION [address] | [place] | infarction involving | | | | [address] [place] | [address] | right coronary | | | | [place] [address] | | artery (HCC) | | | | [phone] | | | +--------+---------+ + + + [...] encounter Progress Notes Pricilla Zaldivar RN - 03/09/2017 10:[address] [facility] [address] [facility] [address] Cardiac Rehab Date: 03/09/2017 Patient Information Patient Name: Jose Raul Palafox Date of : 1960 Age: 56 y.o. Encounter Diagnoses Code Name Primary? 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 Yes Any Changes in Medications? No 01/19/17 gabapentin. Any Problems to Report? No Pain Level: 9/10 leg, T-spine, neck Home exercise: Limited walking [...] min Electronically signed by: Pricilla Zaldivar RN, 03/09/2017 13:01 Patient Name: Jose Raul Palafox/: 1960/ signed by Pricilla Zaldivar RN at 03/09/2017 1:02 PM PDTdocumented in this encounter Plan of [...]
--- OUTSIDE RECORDS SUMMARY | ~2020-03-18 | XMS | Encounter Summary ---
Demographics + + + | Address | [address] | | | [place] [address] | + + + | Home Phone | | + + + | Preferred Language | Unknown | + + + | Marital Status | | + + + | Mormon Affiliation | Unknown | + + + | Race | White | + + + | Ethnic Group | Not or | + + + Author + + + | Author | [facility] | | | and [place] | + + + | Organization | [facility] | | | [...] Team Providers + +------+ + | Care Cloth Drier Name | Role | Phone | + +------+ + | Gary Gomez MD | PCP | | + +------+ + Encounter Details +--------+ + + + + | Date | Type | Department | Care Team | Description | +--------+ + + + + | 11/05/ | Abstract | [facility] | Jameson Espinoza, | | | 2020 | | PHYSIATRY [address] | [address] | | | | | [address] | [place] | | | | | [place] | [address] | | | | | [address] | | | | | | [phone] | | | +--------+ + + + [...] + + +---------+ + | Yes | 2 Shots of liquor | 2.0 | maybe a couple | | | 0 Standard drinks | | drinks a week | | | or equivalent | | | + + +---------+ + + + + + | Alcohol Habits | Answer | Date Recorded | + + + + | How often do you have a drink containing | 2-4 times a month | 03/05/2019 | | alcohol? | | | + + + + | How many drinks containing alcohol do you | 1 or 2 | 03/05/2019 | | have on a typical day when you are | | | | drinking? | | | + + + + | How often do you have six or more drinks on | Never | 03/05/2019 | | one occasion? | | | + + + + + + + + | Education | Answer | Date Recorded | + + + + | What is the highest level of school you | GED or equivalent | 11/06/2019 | | have completed or the highest degree you | | | | have received? | | | + + + + + + + | Sex Assigned [...]
--- OUTSIDE RECORDS SUMMARY | ~2020-03-18 | XMS | Encounter Summary ---
Demographics + + + | Address | [address] | | | [place] [address] | + + + | Home Phone | | + + + | Preferred Language | Unknown | + + + | Marital Status | | + + + | Judaism Affiliation | Unknown | + + + | Race | White | + + + | Ethnic Group | Not or | + + + Author + + + | Author | [facility] | | | and [place] | + + + | Organization | [facility] | | [...] Team Providers + +------+ + | Care Manager Adult Name | Role | Phone | + +------+ + | Gary Gomez MD | PCP | | + +------+ + Reason for Visit + + + | Reason | Comments | + + + | Follow-up | Wound check | + + + Encounter Details +--------+---------+ + + + | Date | Type | Department | Care Team | Description | +--------+---------+ + + + | 01/31/ | Office | [facility] | Cecil Hensley, | Status post cervical | | 2014 | Visit | NEUROSURGERY [address] | PA-C [address] | spinal fusion | | | | [address] | [address] [place] | (Primary Dx); | | | | [place], [place] | [place] [address] | Postoperative | | | | [address] | [phone] | cellulitis of | | | | [phone] | | surgical wound, | | | | | | sequela | +--------+---------+ + + + Social History [...] + + + | Blood Pressure | 99/79 | 01/31/2015 9:23 AM | | | | | PDT | | + + + + + | Pulse | 75 | 01/31/2015 9:23 AM | | | | | PDT | | + + + + + | Temperature | - | - | | + + + + + | Respiratory Rate | 17 | 01/31/2015 9:23 AM | | | | | PDT | | + + + + + | Oxygen Saturation | - | - | | + + + + + | Inhaled Oxygen | - | - | | | Concentration | | | | + + + + + | Weight | 107 kg (236 lb) | 01/31/2015 9:23 AM | | | | | PDT | | + + + + + | Height | 188 cm (6' 2") | 01/31/2015 9:23 AM | | | | | PDT | | + + + + + | Body Mass Index | 30.3 | 01/31/2015 9:23 AM | | | | | PDT [...] Instructions Patient Instructions Cecil Hensley PA - 01/31/2015 9:58 AM PDTSo far, things are most ly progressing as planned. I did ask that he take Keflex for the next 10 days. On his last day, if there is any remaining erythema, I have asked that he have his marked with a p en around the border of this erythema and watch for expansion. If any expansion occurs, the y are to call our office. I would like to see the patient back myself in 2 weeks which will be right around his 1 month postop period. Electronically signed by YUNIER Walsh 01/31/2015 9:58 AM PDT documented in this encounter Progress Notes Cecil Hensley PA - 01/31/2015 9:47 AM PDTFormatting of this note might be different f rom the original. YUNIER Jacinto [address] [facility], [address] [place] [address] FAX: NEUROSURGERY SURGICAL FOLLOW-UP CHIEF COMPLAINT: Chief Complaint Patient presents with Follow-up Wound check HISTORY OF PRESENT ILLNESS: The patient is a 54 y.o. male that had a C3-C7 anterior fusion along with a C3-T2 posterior cervical fusion on January 07. Approximately 10 days ago he call ed to our office and was started on a 10 day course of ciprofloxacin. He returns and overal l is doing fairly well. The patient complains of waxing and waning pain in his right hand i nvolving all 5 fingers. In addition, he is complaining of his right hand being cool and pal e. The patient has been walking as much as possible and has been following their restrictio ns overall. The patient has had some issues with his surgical site. So far issues with leslie erickson have not been a significant problem. He has not had major issues with hoarseness. CURRENT MEDICATIONS: Current Outpatient Prescriptions Medication Sig [...] 3 times daily. 180 capsu le 2 ipratropium (ATROVENT HFA) 17 mcg/puff inhaler Inhale [...] smoking. He quit smokeless tobacco use about 8 months ago. He reports that he drinks alcohol. He reports that he uses illicit drugs (Marijuana) a bout twice per week. INTERIM PHYSICAL EXAMINATION: Blood pressure 99/79, pulse 75, resp. rate 17, height 1.88 m (6' 2"), weight 107.049 kg (23 6 lb). Body mass index is 30.29 kg/(m^2). GENERAL: Jose Raul Palafox is in no acute distress with unlabored respirations. HEENT: HEAD/FACE: Normocephalic and atraumatic. There are no areas of recent trauma. SPINE: The patient s incision is healing well. There is a pear-shaped area of erythema t hat occupies the distal two thirds of his incision. It is 13 cm long and at its widest 0.5 cm wide. There is [id number] radiating warmth coming from this area. There is no act jose l drainage. EXTREMITIES: No lower extremity edema. NEUROLOGICAL EXAMINATION: MENTAL STATUS: The patient is awake, alert, and oriented. He follows simple and complex commands MOTOR EXAM: Motor strength is 5/5. This is improved from the preoperative exam. SENSORY EXAM: The sensory examination improved from the preoperative exam. However, efren harrell still has intermittent sensation of numbness in his right hand REFLEXES: Reflexes are unchanged from his preoperative [...] this time. ASSESSMENT: Encounter Diagnoses Name Primary? Status post cervical spinal fusion Yes Postoperative cellulitis of surgical wound, sequela Past Medical History Diagnosis Date Hepatitis C COPD (chronic obstructive pulmonary disease) (HCC) Restless leg syndrome Asthma Thyroid disease Hyperlipidemia Diverticulitis Hernia, hiatal Anxiety Emphysema of lung (HCC) Hypertension Migraine Neuropathy Thyroid disease History of tobacco use PLAN: Overall, the patient is doing fairly well. He is having some intermittent tingling and num bness in his hand which is expected at this point. The multimedia assistant to recovery will take many months and perhaps years. Hopefully, we will see further improvement over time. I increas ed the patient s activities today allowing 15 pound lifting. I would like the patient to advance slowly with this process and discussed this at length. I would also like the patient to continue with postoperative rehabilitation and to advance with independent or directed therapy as tolerated. So far, things are mostly progressing as planned. I did ask that he take Keflex for the ne xt 10 days. On his last day, if there is any remaining erythema, I have asked that he have his marked with a pen around the border of this erythema and watch for expansion. If a ny expansion occurs, they are to call our office. I would like to see the patient back myse in 2 weeks which will be right around his 1 month postop period. The patient will follow-up with Dr. Stern at his 3 month postop visit ELECTRONICALLY SIGNED BY: YUNIER Jacinto, 01/31/2015 9:56 documented in this encounter Plan of Treatment Not on filedocumented as of this encounter Visit Diagnoses + + | Diagnosis | + + | Status post cervical spinal fusion - Primary Arthrodesis status | + + | Postoperative cellulitis of surgical wound, sequela | + + documented in this encounter
--- OUTSIDE RECORDS SUMMARY | ~2020-03-18 | XMS | Encounter Summary ---
Demographics + + + | Address | [address] | | | [place] [address] | + + + | Home Phone | | + + + | Preferred Language | Unknown | + + + | Marital Status | | + + + | Buddhist Affiliation | Unknown | + + + | Race | White | + + + | Ethnic Group | Not or | + + + Author + + + | Author | [facility] | | | and [place] | + + + | Organization | [facility] | | | [...] Team Providers + +------+ + | Care Hall Worker Name | Role | Phone | + +------+ + | Gary Gomez MD | PCP | | + +------+ + Reason for Visit +--------+--------+ + | Reason | Onset | Comments | | | Date | | +--------+--------+ + | Other | 11/02/ | | | | 2016 | | +--------+--------+ + Encounter Details +--------+ + + + + | Date | Type | Department | Care Team | Description | +--------+ + + + + | 11/02/ | Telephone | [facility] [place] | Aleksander Stern, | Other | | 2016 | | NEUROSURGERY [address] | DO [address] | | | | | [address] | [address] [place], [place] | | | | | [place], [place] | [address] | | | | | [address] | | | | | | [phone] | | | +--------+ + + + [...] Encounter - Marilu Tafoya Cert MA - 11/02/2016 1:36 PM PDTTina Do you know anything about this, or should he be directed to billing? Thank you MARILU TAFOYA elephone Ria Suazo - 11/02/2016 1:22 PM PDTPatient called in stating that he received a "final bill" of $171.00 and he wanted to make sure that this message be relayed to Tina. Palma bliss documente d in this encounter Plan of Treatment Not on filedocumented as of this encounter Visit Diagnoses Not on filedocumented in this encounter
--- OUTSIDE RECORDS SUMMARY | ~2020-03-18 | XMS | Encounter Summary ---
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 | | | | | | | hesis | | | | | | | Procedures | | | | | | | PA | | | | | | | ARTHRODESIS | | | | | | | ANT | | | | | | | INTERBODY | | | | | | | INC | | | | | | | DISCECTOMY, | | | | | | | CERVICAL | | | | | | | BELOW C2 | | | | | | | LAMINECTOMY | | | | | | | CERVICAL | | | | | | | POSTERIOR W | | | | | | | FUSION | | | | | | | CERVICAL | | | | | | | ANTERIOR | | | +--------+--------+ + + + + Encounter Details +--------+ + + + + | Date | Type | Department | Care Team | Description | +--------+ + + + + | 01/07/ | Anesthesia | [facility] | Emmanuel Dorsey MD | | | 2015 | Event | [facility] | [address] | | | | | [address] | [place] | | | | | [place] | [id number] | | | | | [phone] | | | | | | [phone] | | | +--------+ + + + + Anesthesia Record + + + + + | Procedure Name | Responsible | Anesthesia Start | Anesthesia Stop Time | | | Anesthesiologist | Time | | + + + + + | C3-4, C4-5, C5-6, | Emmanuel Kendy Dorsey MD | 01/07/15 1201 | 01/07/15 1917 | | C6-7, Anterior | | | | | Cervical Discectomy | | | | | w/ Fusion and | | | | | Plating, Posterior | | | | | Fusion at C3-4, | | | | | C4-5, C5-6, C6-7, | | | | | C7-T1, and T1-2 (N/A | | | | | Spine Cervical) | | | | + + + + + +----+---+ + + | Da | T | Event | Comment | | te | i | | | | | m | | | | | e | | | +----+---+ + + | 06 | 1 | | | | /1 | 1 | | | | 6/ | 5 | | | | 20 | 8 | | | | 15 | | | | +----+---+ + + | | 1 | An Checkout | Pre-use anesthesia machine/equipment checkout. | | | 2 | | | | | 0 | | | | | 1 | | | +----+---+ + + | | 1 | An Start | Reassessment prior to anesthesia induction/procedure. | | | 2 | | | | | 0 | | | | | 1 | | | +----+---+ + + | | 1 | Antibiotic | | | | 2 | Given | | | | 0 | | | | | 1 | | | +----+---+ + + | | 1 | Preoxygenat | | | | 2 | ed | | | | 0 | | | | | 3 | | | +----+---+ + + | | 1 | An | | | | 2 | Induction | | | | 0 | | | | | 6 | | | +----+---+ + + | | 1 | An | | | | 2 | Intubation | | | | 0 | | | | | 7 | | | +----+---+ + + | | 1 | Hardaway | | | | 2 | 43-degrees | | | | 2 | | | | | 6 | | | +----+---+ + + | | 1 | Hardaway off | | | | 8 | | | | | 4 | | | | | 8 | | | +----+---+ + + | | 1 | Breathing | | | | 8 | Spontaneous | | | | 4 | ly | | | | 8 | | | +----+---+ + + | | 1 | Oropharynx | | | | 9 | Suctioned | | | | 0 | | | | | 7 | | | +----+---+ + + | | 1 | Moving | | | | 9 | Purposefull | | | | 0 | y | | | | 9 | | | +----+---+ + + | | 1 | Extubated | | | | 9 | Awake | | | | 0 | | | | | 9 | | | +----+---+ + + | | 1 | an stop | | | | 9 | data | | | | 0 | | | | | 9 | | | +----+---+ + + | | 1 | An Stop | Patient handed off to recovery nurse. | | | 1 | | | | | 7 | | | +----+---+ + + +------+ | Meds | +------+ + + + | Name | Total | + + + | lidocaine 2% | 40 mg | + + + | propofol | 200 mg | + + + | ondansetron | 4 mg | + + + | dexamethasone | 10 mg | + + + | fentaNYL | 100 mcg | + + + | HYDROmorphone | 6 mg | + + + | cisatracurium | 18 mg | + + + | glycopyrrolate | 0.2 mg | + + + | ceFAZolin in dextrose (ANCEF) | 2 g | | IVPB 2 g | | + + + | midazolam | 2 mg | + + + | labetalol | 20 mg | + + + | methylPREDNISolone | 40 mg | + + + | metoprolol | 10 mg | + + + | dexmedetomidine (Bolus) | 20 mcg | + + + | sodium chloride 0.9% (NS) | 2,000 mL | | infusion | | + + + | LR (Infusion) | 1,200 mL | + + + + + | Name | + + | N2O Flow Rate (L/Min) | + + | O2 Flow Rate (L/Min) | + + | Insp O2 | + + | Exp SEV | + + | Exp RENETTA | + + | Air Flow Rate (L/Min) | + + + + | No blood administrations on file. | + + +--------+ + + + | Type | Details | Placement | Removal | +--------+ + + + | Drain/ | 01/07/15; #2; Left:; posterior; | 01/07/15 0000 by | 01/11/15 1430 by | | Device | shoulder; short term use; | Esther Pereira RN | Ifeoma Teran RN | | Site | 01/11/15; 1430 | | | +--------+ + + + | [READ | 01/07/15; 0843; Blood Bank; short | 01/07/15 0843 by | 01/11/15 1500 by | | ONLY] | term use; 01/11/15; 1500 | Britt Gil RN | Ifeoma Teran RN | | | | | | | Periph | | | | | eral | | | | | IV - | | | | | Single | | | | | Lumen | | | | | | | | | +--------+ + + + | Airway | Placement Date: 01/07/15; | 01/07/151206 by | 01/07/15 1909 by | | | Placement Time: 1207; Mask | Emmanuel Dorsey MD | Emmanuel Dorsey MD | | | Ventilation: EZ w/OA; Airway | | | | | Grade: I; Successful Technique: | | | | | video scope; Laryngoscope Blade | | | | | Size: 4; Attempts: 1; Airway | | | | | Type: endotracheal, oral, cuffed, | | | | | disposable; Size: 6.5; Position: | | | | | Right; Airway Tube Secured At: | | | | | 0.22 m (8.66"); Tube Reference | | | | | Point: lip; Trauma: none; | | | | | Placement Check: verified by | | | | | capnography; Placed By: | | | | | Anesthesiologist; Removal Date: | | | | | 01/07/15; Removal Time: 1908 | | | +--------+ + + + | Drain/ | 01/07/15; 1544; #1; anterior; | 01/07/15 1544 by | 01/09/15 1105 by | | Device | cervical spine; 01/09/15; 1105 | Nara Seth RN | Subha Cowart RN | | Site | | | | +--------+ + + + | Urethr | 01/07/15; 1616; indicated due to | 01/07/15 1616 by | 01/08/15 0000 by | | al | specific surgical procedure; | Nara Seth RN | Tameka Adair RN | | Cathet | indwelling double lumen catheter; | | | | er | 100% silicone; healing within | | | | | expectations; 01/08/15; (not | | | | | present ) | | | +--------+ + + + | Read | 01/07/15; 1635; Right:; neck; | 01/07/15 1635 by | 01/11/15 1500 by | | only - | discharged to home with healing | Nara Seth RN | Ifeoma Teran RN | | | incisions; healing within | | | | Incisi | expectations; 01/11/15; 1500 | | | | on | | | | +--------+ + + + | Read | 01/07/15; 1714; Bilateral:; neck; | 01/07/15 1714 by | 01/11/15 1500 by | | only - | Posterior, discharged to home | Nara Seth RN | Ifeoma Teran RN | | | with healing incisions; healing | | | | Incisi | within expectations; 01/11/15; | | | | on | 1500 | | | +--------+ + + + documented in this encounter Social History + +-------+ +--------+------+ | Tobacco [...] + + documented as of this encounter OR Notes Anesthesia Postprocedure Evaluation - Emmanuel Dorsey MD - 01/07/2015 7:18 PM PDT ANESTHESIA POSTANESTHESIA EVALUATION Jose Raul [place] 54 y.o. male 1960 [id number] Procedure(s) C3-4, C4-5, C5-6, C6-7, C7-T1 Anterior Cervical Discectomy w/ Fusion and Plat ing, Posterior Fusion at C3-4, C4-5, C5-6, C6-7, C7-T1, and T1-2 (N/A Spine Cervical) Filed Vitals: 01/07/15 0818 01/07/15 1912 BP: 132/80 186/107 Pulse: 73 111 Temp: 36.5 C (97.7 F) 36.4 C (97.5 F) Resp: 16 16 SpO2: 95% 94% Cooperates? Yes Mental Status Performs simple tasks. Respiratory Satisfactory - Airway patent (self maintained). Cardiovascular Hypertension being treated with pain control, and labetalol. Temperature Satisfactory No signs of dehydration Pain Satisfactory N/V Control Satisfactory Hydration Satisfactory No signs of dehydration Complications None apparent Electronically signed by Emmanuel Dorsey MD 01/07/2015 19:18 [facility] nesthesia Preprocedure Evaluation - Emmanuel Dorsey MD - 01/07/2015 11:51 AM PDTFormatting of this note might be di fferent from the original. ANESTHESIA PREANESTHESIA EVALUATION Jose Raul Palaf[place] 54 y.o. male 1960 [id number] Procedure(s): C3-4, C4-5, C5-6, C6-7, C7-T1 Anterior Cervical Discectomy w/ Fusion and Plat ing, Posterior Fusion at C3-4, C4-5, C5-6, C6-7, C7-T1, and T1-2 (N/A ) Medical history, anesthesia, medications, allergy histories reviewed. ECG reviewed. Labs reviewed. ROS / Med History Ane No anesthesia complications. NPO status verified. CV (+) hypertension.(-) angina. Pulm (+) COPD. Renal Negative except where noted below. GI/Hep (+) hepatitis: type C. Endo (+) hypothyroidism. Other Negative except where noted below. Physical Exam Airway MP I, TM >3 FB, Mouth opening >2 FB. Neck: limited ROM, extends <30 degrees. Jaw protr usion normal. Dental Grossly normal except where noted below.; CV Rhythm regular. Rate normal. (-) murmur. Pulm Clear to auscultation bilaterally. Neuro Grossly normal. Anesthesia Plan ASA 3 Type: General. Induction: Intravenous. Potential problems: None anticipated. Monitors: Standard ASA monitors. Consent statement:Anesthetic plan, alternatives, risks and benefits discussed with patient. Risks discussed included (but were not limited to): sore throat, pain, nausea, respiratory events, post-op intubation, . Consenting person understands and agrees to proceed. Electronically Signed by: Emmanuel Dorsey MD [facility] date/time: 01/07/2015 11:51 documented in this enco unter Plan of Treatment Not on filedocumented as of this encounter Visit Diagnoses Not on filedocumented in this encounter Administered Medications + +--------+ +------+------+------+ | Medication Order | MAR | Action | Dose | Rate | Site | | | Action | Date | | | | + +--------+ +------+------+------+ | ceFAZolin in dextrose (ANCEF) | Given | 01/08/20 | 2 g | | | | IVPB 2 g 2 g, Intravenous, | | 15 12:00 | | | | | Administer over 30 Minutes, Prior | | PM PDT | | | | | to Incision, Starting Tue | | | | | | | 01/07/15 at 0811, For 1 dose, | | | | | | | Administer within 1 hour of | | | | | | | surgical incision., Pre-op | | | | | | + +--------+ +------+------+------+ +---+---+ | | | +---+---+ + +-------+ +------+---+---+ | cisatracurium (NIMBEX) | Given | 01/08/20 | 8 mg | | | | injection Intravenous, PRN, | | 15 3:45 | | | | | Ventilator Dyssynchrony, Starting | | PM PDT | | | | | 01/07/15 at 1206, Anesthesia | | | | | | | Intra-op | | | | | | + +-------+ +------+---+---+ +-------+ +-------+---+---+ | Given | 01/08/20 | 10 mg | | | | | 15 12:06 | | | | | | PM PDT | | | | +-------+ +-------+---+---+ +---+---+ | | | +---+---+ + +-------+ +-------+---+---+ | dexamethasone (DECADRON) 10 | Given | 01/08/20 | 10 mg | | | | mg/mL injection Intravenous, | | 15 12:29 | | | | | PRN, Starting Tu01/07/15 at | | PM PDT | | | | | 1229, Anesthesia Intra-op | | | | | | + +-------+ +-------+---+---+ +---+---+ | | | +---+---+ + +-------+ +--------+---+---+ | dexmedetomidine (PRECEDEX) in | Given | 01/08/20 | 10 mcg | | | | sodium chloride bolus infusion | | 15 6:16 | | | | | Intravenous, PRN, Starting Tue | | PM PDT | | | | | 01/07/15 at 1759, Anesthesia | | | | | | | Intra-op | | | | | | + +-------+ +--------+---+---+ +-------+ +--------+---+---+ | Given | 01/08/20 | 10 mcg | | | | | 15 5:59 | | | | | | PM PDT | | | | +-------+ +--------+---+---+ +---+---+ | | | +---+---+ + +-------+ +---------+---+---+ | fentaNYL injection | Given | 01/08/20 | 100 mcg | | | | Intravenous, PRN, Pain, Starting | | 15 12:02 | | | | | 01/07/15 at 1202, Anesthesia | | PM PDT | | | | | Intra-op | | | | | | + +-------+ +---------+---+---+ +---+---+ | | | +---+---+ + +-------+ +--------+---+---+ | glycopyrrolate (ROBINUL) | Given | 01/08/20 | 0.2 mg | | | | injection Intravenous, PRN, | | 15 4:15 | | | | | Secretions, Starting 01/07/15 | | PM PDT | | | | | at 1615, Anesthesia Intra-op | | | | | | + +-------+ +--------+---+---+ +---+---+ | | | +---+---+ + +-------+ +------+---+---+ | HYDROmorphone (PF) (DILAUDID) 2 | Given | 01/08/20 | 1 mg | | | | mg/mL injection Intravenous, | | 15 6:15 | | | | | PRN, Pain, Starting Tue01/07/15 | | PM PDT | | | | | at 1225, Anesthesia Intra-op | | | | | | + +-------+ +------+---+---+ +-------+ +------+---+---+ | Given | 01/08/20 | 1 mg | | | | | 15 4:30 | | | | | | PM PDT | | | | +-------+ +------+---+---+ | Given | 01/08/20 | 2 mg | | | | | 15 2:52 | | | | | | PM PDT | | | | +-------+ +------+---+---+ +---+---+ | | | +---+---+ + +-------+ +-------+---+---+ | labetalol (TRANDATE) 5 mg/mL | Given | 01/08/20 | 10 mg | | | | injection Intravenous, PRN, | | 15 3:07 | | | | | Starting 01/07/15 at 1250, | | PM PDT | | | | | Anesthesia Intra-op | | | | | | + +-------+ +-------+---+---+ +-------+ +-------+---+---+ | Given | 01/08/20 | 10 mg | | | | | 15 12:50 | | | | | | PM PDT | | | | +-------+ +-------+---+---+ +---+---+ | | | +---+---+ + +---------+ +---+---+---+ | lactated ringers (LR) infusion | New Bag | 01/08/20 | | | | | Intravenous, CONTINUOUS PRN, | | 15 6:26 | | | | | Starting 01/07/15 at 1714, | | PM PDT | | | | | Anesthesia Intra-op | | | | | | + +---------+ +---+---+---+ +---------+ +---+---+---+ | New Bag | 01/08/20 | | | | | | 15 5:14 | | | | | | PM PDT | | | | +---------+ +---+---+---+ +---+---+ | | | +---+---+ + +-------+ +-------+---+---+ | lidocaine (PF) 2% injection | Given | 01/08/20 | 40 mg | | | | Intravenous, PRN, Starting Tue | | 15 12:06 | | | | | 01/07/15 at 1206, Anesthesia | | PM PDT | | | | | Intra-op | | | | | | + +-------+ +-------+---+---+ +---+---+ | | | +---+---+ + +-------+ +-------+---+---+ | methylPREDNISolone sodium | Given | 01/08/20 | 40 mg | | | | succinate (solu-MEDROL) 40 mg/mL | | 15 12:13 | | | | | injection Intravenous, PRN, | | PM PDT | | | | | Starting 01/07/15 at 1213, | | | | | | | Anesthesia Intra-op | | | | | | + +-------+ +-------+---+---+ +---+---+ | | | +---+---+ + +-------+ +------+---+---+ | metoprolol tartrate (LOPRESSOR) | Given | 01/08/20 | 5 mg | | | | injection Intravenous, PRN, | | 15 5:24 | | | | | Starting 01/07/15 at 1715, | | PM PDT | | | | | Anesthesia Intra-op | | | | | | + +-------+ +------+---+---+ +-------+ +------+---+---+ | Given | 01/08/20 | 2 mg | | | | | 15 5:20 | | | | | | PM PDT | | | | +-------+ +------+---+---+ | Given | 01/08/20 | 3 mg | | | | | 15 5:15 | | | | | | PM PDT | | | | +-------+ +------+---+---+ +---+---+ | | | +---+---+ + +-------+ +------+---+---+ | midazolam (VERSED) 1 mg/mL | Given | 01/08/20 | 2 mg | | | | injection Intravenous, PRN, | | 15 12:00 | | | | | Anxiety, Starting 01/07/15 at | | PM PDT | | | | | 1200, Anesthesia Intra-op | | | | | | + +-------+ +------+---+---+ +---+---+ | | | +---+---+ + +-------+ +------+---+---+ | ondansetron (ZOFRAN) injection | Given | 01/08/20 | 4 mg | | | | Intravenous, PRN, Nausea, | | 15 12:29 | | | | | Vomiting, Starting 01/07/15 at | | PM PDT | | | | | 1229, Anesthesia Intra-op | | | | | | + +-------+ +------+---+---+ +---+---+ | | | +---+---+ + +-------+ +--------+---+---+ | propofol (DIPRIVAN) injection | Given | 01/08/20 | 200 mg | | | | Intravenous, PRN, Starting Tue | | 15 12:06 | | | | | 01/07/15 at 1206, Anesthesia | | PM PDT | | | | | Intra-op | | | | | | + +-------+ +--------+---+---+ +---+---+ | | | +---+---+ + +---------+ +---+---+---+ | sodium chloride 0.9% (NS) | New Bag | 01/08/20 | | | | | infusion at 100 mL/hr, | | 15 2:16 | | | | | Intravenous, CONTINUOUS, Starting | | PM PDT | | | | | 01/07/15 at 0830, Pre-op | | | | | | + +---------+ +---+---+---+ +---------+ +--------+-------+ + | New Bag | 01/08/20 | | | | | | 15 12:00 | | | | | | PM PDT | | | | +---------+ +--------+-------+ + | New Bag | 01/08/20 | 1,000 | 100 | Left Arm | | | 15 8:51 | mLs | mL/hr | | | | AM PDT | | | | +---------+ +--------+-------+ + +---+---+ | | | +---+---+ documented in this encounter
--- OUTSIDE RECORDS SUMMARY | ~2020-03-18 | XMS | Encounter Summary ---
Demographics + + + | Address | [address] | | | [place] [address] | + + + | Home Phone | | + + + | Preferred Language | Unknown | + + + | Marital Status | | + + + | [employer] Affiliation | Unknown | + + + [...] Team Providers + +------+ + | Care Chemical Engraver Name | Role | Phone | + +------+ + PCP | Unavailable | + +------+ + Encounter Details +--------+ + + + + | Date | Type | Department | Care Team | Description | +--------+ + + + + | [facility]/08/ [facility] | [facility] | | 2001 | Encounter | [address] | | | | | [place] | [address] | | | | | [place] | [place] | | | | | [phone] | [id number] | | | | | [phone] | [phone] | | | | | | | [...] + | Diagnosis | + + | Cough | + + documented in this encounter"
--- OUTSIDE RECORDS SUMMARY | ~2020-03-18 | XMS | Encounter Summary ---
Demographics + + + | Address | [address] | | | [place] [address] | + + + | Home Phone | | + + + | Preferred Language | Unknown | + + + | Marital Status | | + + + | Rastafari Affiliation | Unknown | + + + | Race | White | + + + | Ethnic Group | Not or | + + + Author + + + | Author | [facility] | | | and [place] | + + + | Organization | [facility] | | | and [place] | + + + | Address | Unknown | + + + | Phone | Unavailable | + + + Support + + +---------+ + | Name | Relationship | Address | Phone | + + +---------+ + | Iman Maldonado | ECON | Unknown | | + + +---------+ + Care Team Providers + +------+ + | Care Analytical Technician Name | Role | Phone | + +------+ + | Gary Gomez MD | PCP | | + +------+ + Reason for Referral Evaluate & Treat (Routine) +--------+ + + + + + | Status | Reason | Specialty | Diagnoses / | Referred By | Referred To | | | | | Procedures | Contact | Contact | +--------+ + + + + + | Closed | Specialty | Cardiac | Diagnoses | [place], | [facility] | | | Services | Rehabilitatio | ST | Latonia Jewell MD | | | | Required | n | elevation | [address] | Rehabilitatio | | | | | myocardial | [place] | [address] | | | | | infarction | [place], [place] | [place] | | | | | involving | [id number] | [place], [place] | | | | | right | Phone: | [phone] | | | | | coronary | [phone] | Phone: | | | | | artery (HCC) | Fax: | [phone] | | | | | Procedures | [phone] | Fax: | | | | | NE | | [phone] | | | | | OUTPATIENT | | | | | | | CARDIAC | | | | | | | REHAB W/CONT | | | | | | | ECG | | | | | | | MONITORING | | | +--------+ + + + + + Reason for Visit + + + | Reason | Comments | + + + | Chest Pain | present off and on for one week, worsening today and especially | | | over the last 45 minutes | + + + Auth/Cert +--------+--------+ + + + + | Status | Reason | Specialty | Diagnoses / | Referred By | Referred To | | | | | Procedures | Contact | Contact | +--------+--------+ + + + + | | | | Diagnoses | | | | | | | Diaphoresis | | | | | | | Anxiety | | | | | | | attack ST | | | | | | | elevation | | | | | | | myocardial | | | | | | | infarction | | | | | | | (STEMI) of | | | | | | | inferior | | | | | | | wall (HCC) | | | | | | | Chest pain | | | | | | | in adult | | | | | | | | | | | | | | chest pain | | | | | | | Procedures | | | | | | | CV COR ANGIO | | | +--------+--------+ + + + + Encounter Details +--------+ + + + + | Date | Type | Department | Care Team | Description | +--------+ + + + + | 11/03/ | Hospital | [facility] | Ryan Petersen, | ST elevation | | 2017 - | Encounter | MED CTR ICU [address] | MD [address] | myocardial | | | | [place], | [place], [place] | infarction (STEMI) | | 11/05/ | | [place] [address] | [id number] | of inferior wall | | 2016 | | [phone] | | (HCC) (Primary Dx); | | | | | Latonia Gallardo, | Chest pain in adult; | | | | | MD [address] | Diaphoresis; | | | | | [place], [place] | Anxiety attack; ST | | | | | [id number] | elevation myocardial | | | | | | infarction | | | | | | involving right | | | | | | coronary artery | | | | | | (HCC) | +--------+ + + + + Social [...] + + + | Blood Pressure | 116/68 | 11/05/2016 3:51 AM | | | | | PDT | | + + + + + | Pulse | 95 | 11/05/2016 9:12 AM | | | | | PDT | | + + + + + | Temperature | 36 C (96.8 F) | 11/05/2016 3:51 AM | | | | | PDT | | + + + + + | Respiratory Rate | 20 | 11/05/2016 3:51 AM | | | | | PDT | | + + + + + | Oxygen Saturation | 96% | 11/05/2016 9:12 AM | | | | | PDT | | + + + + + | Inhaled Oxygen | - | - | | | Concentration | | | | + + + + + | Weight | 97.8 kg (215 lb 9.8 | 11/05/2016 3:51 AM | | | | oz) | PDT | | + + + + + | Height | 188 cm (6' 2") | 11/03/2016 11:56 AM | | | | | PDT | | + + + + + | Body Mass Index | 27.68 | 11/03/2016 11:56 AM | | | | | PDT [...] documented as of this encounter Discharge Summaries Latonia Gallardo MD - 11/05/2016 9:36 AM PDTFormatting of this note might be different fr om the original. DISCHARGE SUMMARY PATIENT NAME/: Jennifer Maldonado, (1960) DATE OF ADMISSION: 11/03/2016 DATE OF DISCHARGE: 11/05/2016 DISCHARGING PHYSICIAN: Latonia Gallardo MD ADMITTING DIAGNOSIS: ST elevation myocardial infarction involving right coronary artery PRIMARY CARE PROVIDER: Tommy Gomez MD DISPOSITION: Discharge to home BRIEF HOSPITAL COURSE: Please see the history and physical at the time of admission. Briefly, Mr. Maldonado is a 55 y.o. male who was admitted on 11/03/[address] elevation myocardial infarction involving right coronary artery . He was brought by ambulance to the ED after he began to complain of chest pain while at the [place]. He had a severe episode of chest pain last week that he thought was GI. He states he experienced some chest discomfort and vomited once the night before admission; [facility] he began to experience acute chest pain. The pain was constant. Resting helped to a lleviate the pain; activity exacerbated the pain. The pain was substernal in location and ra diated to both axilla and down both arms, to the xyphoid process, and to the back. He descri bes the pain as "crushing, ripping, and sharp" in quality. He says that at its most severe, the pain was a 14-15/10. He states his current level of pain is a 4-6/10. He denies nausea a nd headache. He states he did experience shortness of breath, light-headedness, severe diaph oresis, and one episode of vomiting. The patient notes that he always feels SOB from COPD an d asthma and that he is on 2L of O2 per day. 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 T his was stented with RENETTA stents. He experienced a stent thrombosis and was returned to the flower shop lab[facility]. A stent was placed and IVUS was performed. He was given IC integrelin. He had n o further ischemia. He developed post [place] pericarditis. He was started on colchicine and th is resolved. An echo was preformed and showed EF of 61%.(see below) He was continued on his home medications. He used his own inhalers which were not on our f ormulary. Given his stent thrombosis he was discharged on Brilinta 90 mg BID. This was faxed to the [place] for approval. He was given a month of samples. [facility] Condition at discharge: Pain free. Atorvastatin will be held for a week and then started due to possible interaction with col chicine. Colchicine will be given for a week for post [place] pericarditis. HOSPITAL PROBLEMS: Principal Problem: ST elevation myocardial infarction involving right coronary artery Active Problems: Hepatitis C Hyperlipidemia Hypertension Postmyocardial infarction syndrome MASTER PROBLEM LIST: Patient Active Problem List Diagnosis Date Noted POA ST elevation myocardial infarction involving right coronary artery 11/05/2016 Yes Postmyocardial infarction syndrome 11/05/2016 Unknown Bilateral arm pain 08/22/2016 Unknown Thoracic radiculopathy 08/17/2016 Unknown S/P cervical spinal fusion 01/21/2015 Unknown COPD (chronic obstructive pulmonary disease) Yes Asthma Unknown Thyroid disease Unknown Hyperlipidemia Yes Diverticulitis Unknown Hernia, hiatal Unknown Anxiety Unknown Emphysema of lung Unknown Hypertension Yes Migraine Unknown Neuropathy Unknown History of tobacco use Unknown Hepatitis C Yes Restless leg syndrome Unknown VITALS: Temp: 36 C (96.8 F) BP: 116/68 mmHg Pulse: 95 Resp: 20 SpO2: 96 % WEIGHT: Today's Weight: 97.8 kg (215 lb 9.8 oz) Admit Weight: 105.235 kg (232 lb) BRIEF EXAM TODAY: General Appearance - alert, in no distress Heart - regular rate and rhythm, S1 and S2 normal, no murmur, rub, or gallop. Lungs - clear to auscultation bilaterally Musc/Skel - moves all extremities Extremities - no cyanosis. no significant edema Neurologic - no focal deficits Sheath site - no hematoma CONSULTATION: Dietitian DIAGNOSTIC STUDIES: Imaging: Cath: Informed consent was obtained from the patient, and a time-out was performed to verify the patient's identification and planned procedure. Please refer to the computer log entry for m for precise details. The right radial was prepped and draped in the usual sterile fashion. The wire would not pass the mid radial. The patient's right and left groins had been prepped and draped in the usual sterile fashion, and anesthetized with 1% lidocaine.A 6F s brad was inserted. Coronary angiography was performed in multiple views using 5 [place] JL 3.5 diagnostic and a JR4 guide. . A 5 gabonese pigtail catheter was advanced into the l eft ventricle, pressures were measured, and left ventriculography was performed. A pullbac k across the valve was used to assess if there was a gradient across the aortic valve. After review of the digital images, I elected to proceed with the coronary intervention. The patient's anticoagulation regimen consisted aspirin and Bivalirudin. of 6 F JR 4 . g uide was used to cannulate the RCA vessel. This did not fit well and was exchanged for an AR 1 guide. The lesion was crossed with two wires a Forte Floppy and a Whisper wire. I t was pre dilated with 3.0 X 15 mm balloon. The lesion was then treated with a 3.5 X 24 Pr omus RENETTA stent. + a 4.0 X 16 Promus RENETTA stent. The patient was returned to the ICU and developed further pain and was returned to the lab where an additional stent a 4.0 X 28 Promus was placed. IVUS was performed. Buffered IC integrelin was administered. We used heparin for anticoagulation and did multiple ACT's. T he arteries were stiff and calcified. It was difficult to pass anything. We resorted to placing a 1.5 mm Mini Trek 12 mm and through this we were able to exchange for a Wiggle wire 300. We then went back with a 4.5 X 20 NC balloon and dilated along the stented segment. We repeated IVUS of the proximal section of the sent. There was an excellent result. Before the patient was off the table he again had increasing pain. I had left the sheath in and so we took an angiographic catheter and looked one more time. The artery was wide o pen without thrombus. Angioseal was utilized to achieve successful hemostasis in the right femoral artery. The left sheath was sutured in position and there was no hematoma. There were no immediate c omplications. Estimated blood loss was: 25 cc. Fluro Time: 38.6 min Contrast: 196 mls of Omnipaque 350 Moderate sedation start time: 1152. Moderate sedation stop time: 1231. ILatonia ms, MD, reviewed the patient's pre-sedation assessment and vital signs, supervised and direc misael the Moderate Sedation from administration to patient stabilization for recovery. FINDINGS: Hemodynamics: Left ventricular end-diastolic pressure (LVEDP) was [...] intervention: No residual stenosis RUPA 3 flow No residual stenosis and no thrombus CONCLUSIONS: 1. Inferior [place] 100% RCA - hypercoagulable state and thrombosis of RCA 2. RENETTA stents to the RCA 3. Normal Left main 4. LAD with 20% mid lesions 5. Non dominant LCX without significant disease 6. Mild inferior hypokinesis - normal EF 7. Calcified "stiff" coronary arteries 8. IVUS of the RCA for stent optimization Echo: Conclusions Summary Left ventricle is normal in size and function. Ejection fraction is estimated at 61%. Normal Left Ventricular contractility was noted. Structurally normal mitral valve without significant stenosis or regurgitation. Aortic valve is trileaflet without significant stenosis or regurgitation. Structurally normal tricuspid valve without significant stenosis or regurgitation. No evidence of pericardial effusion. ECG: Selected Labs: Recent Labs Lab 11/04/16 0431 11/03/16 2249 11/03/16 1230 11/03/16 1204 11/03/16 1134 WBC -- -- -- -- -- 12.5* HGB -- -- -- -- 16.1 16.4 HCT -- -- -- -- 47 48.5 PLT -- -- -- -- -- 315 NA 141 -- 139 -- -- -- K 4.1 3.7 3.4* < > -- -- BUN 12 -- 19* -- -- -- CREA 0.81 -- 0.80 -- -- -- GLU 121* -- 134* -- -- -- MG 2.1 -- -- -- -- -- CALCIUM 9.0 -- 8.9 -- -- -- INR -- -- -- -- -- 0.87* < > = values in this interval not displayed. Recent Labs Lab 11/04/16 0431 HDL 34 LDL 106 TRIG 197* Recent Results (from the past 24 hour(s)) CK Total Collection Time: 11/05/16 6:29 Result Value Ref Range CK TOTAL 376 (H) 22-269 U/L ECG 12 lead Collection Time: 11/05/16 6:30 Result Value Ref Range INTERPRETATION TEXT Not Confirmed Extra Lavender Top Tube Collection Time: 11/05/16 6:43 Result Value Ref Range Extra Lavender Top Tube Done MEDS: Discharge Medications New Medications Details aspirin 81 MG EC tablet Notes to Patient: For general heart health Take 1 tablet by mouth Daily. atorvaSTATin 80 MG tablet Notes to Patient: For cholesterol Start AFTER you are done with the colchicine, on 11/13/16 (because taking both at the same time can increase your risk of muscles breaking down) Take 1 tablet by mouth nightly. Do not take for a week aka: LIPITOR colchicine 0.6 mg tablet Notes to Patient: For pericarditis (swelling of heart sac) For one week--start on 11/05 PM, end on 11/12 AM Take 1 tablet by mouth 2 times daily. nitroglycerin 0.4 mg SL tablet Notes to Patient: Can take up to 3 times, five minutes apart. Call 911 after second dose! Bottle expires 6 months after opened, or printed expiration date, whichever occurs first. If you take out tablets to put them in something else, they are only good for 2-[address] 1 tablet under the tongue every 5 minutes as needed for Chest pain. aka: NITROSTAT ticagrelor 90 mg tablet Notes to Patient: To help prevent blood clots due to stents Take 1 tablet by mouth 2 times daily. aka: TORIILINTA Changed Medications Details busPIRone 15 mg tablet Notes to Patient: For mood and anxiety Take 15 mg by mouth 2 times daily. What changed: Another medication with the same name was removed. Continue taking this medi cation, and follow the directions you see here. aka: BUSPAR gabapentin 300 mg capsule Notes to Patient: For neuropathic pain control Take 2 capsules by mouth 3 times daily. What changed: Another medication with the same name was removed. Continue taking this medi cation, and follow the directions you see here. aka: NEURONTIN HYDROcodone-acetaminophen 10-325 mg per tablet Take 1-2 tablets by mouth 3 times daily as needed for Pain. Max of 4 tabs daily What changed: Another medication with the same name was removed. Continue taking this medi cation, and follow the directions you see here. aka: NORCO metoprolol tartrate 100 mg tablet Notes to Patient: For heart and blood pressure Take 1 tablet by mouth 2 times daily. What changed: - medication strength - how much to take aka: LOPRESSOR Unchanged Medications Details calcium carbonate 500 mg chewable tablet Take 1 tablet by mouth Daily as needed for Heartburn. aka: TIMUR cyclobenzaprine 10 mg tablet Take 10 mg by mouth Twice daily as needed for Muscle spasms. aka: FLEXERIL famotidine 20 mg tablet Notes to Patient: To help prevent heartburn Take 20 mg by mouth 2 times daily. aka: PEPCID fluticasone-salmeterol 500-50 mcg/puff diskus inhaler Notes to Patient: To help prevent COPD flare-ups Rinse mouth out after each use Inhale 1 puff into the lungs Twice Daily. aka: ADVAIR ipratropium 17 mcg/puff inhaler Notes to Patient: To help prevent breathing problems Inhale 2 puffs into the lungs 4 times daily. aka: ATROVENT HFA levalbuterol 1.25 mg/3 mL nebulizer solution Notes to Patient: To help prevent breathing problems Take 1 ampule by nebulization 3 times daily. aka: XOPENEX levalbuterol 45 mcg/puff inhaler Inhale 1 puff into the lungs EVERY 4 TO 6 HOURS NEEDED for Wheezing. aka: XOPENEX HFA levothyroxine 175 MCG tablet Notes to Patient: For thyroid Take 175 mcg by mouth every morning (before breakfast). aka: SYNTHROID, LEVOTHROID omeprazole 20 mg capsule Notes to Patient: To help prevent heartburn Take 20 mg by mouth 2 times daily. aka: priLOSEC rOPINIRole 0.5 MG tablet Take 0.5 mg by mouth nightly as needed (restless leg). aka: REQUIP O2 2L constant PATIENT INSTRUCTIONS: ACTIVITY: no lifting greater than 10 pounds DIET: cardiac diet FOLLOW-UP: Follow up with Dr Gallardo in 2-3 weeks .. Time spent on discharge planning: greater than 30 minutes Electronically signed by Latonia Gallardo MD at 11:43 AM PDTdocumented in this encounter Discharge Instructions Instructions Latonia Gallardo MD - 11/05/2016Do not lift greater than 10 pounds for 2 week s Call if any problems [phone] AttachmentsThe following attachments cannot be sent through Care Everywhere.AFTER PERCUTANE OUS CORONARY INTERVENTION (PCI) EXERCISING SAFELY (ALGERIAN)STENTS, CORONARY (ALGERIAN)documen misael in this encounter Medications at Time of [...] documented as of this encounter Progress Notes Shannan Justin, PharmD - 11/05/2016 11:42 AM PDTJennifer Maldonado was admitted for STEMI and discharged home today (11/05/2016) Taught AVS education to patient. Education was focused on new medications and/or changed me dications. I explained indication, how to take, possible side effects, when to contact physi sheree, and monitor parameters. The patient was encouraged to make a follow-up appointment with PCP. The patient verbalized understanding of the above and all questions were answered. Pharmaci st will follow-up with patient in one to two business days. Patient was provided with a christophe nciled discharge medication list as part of their AVS instructions. Encouraged patient to sh are medication list with healthcare providers and keep list current. Shannan Justin PHARMD 11/05/2016 11:42 Latonia Mays MD - 11/04/2016 4:16 PM PDT PATIENT NAME: Jennifer Maldonado : 1960: AGE: 55 y.o. PRIMARY CARE: Tommy Gomez MD INPATIENT FOLLOW UP VISIT Date of Service: 11/04/2016 HISTORY OF PRESENT ILLNESS: Jennifer Maldonado is a 55 y.o. male with a history of STEMI and stent thrombosis. He is b eing seen today for follow up. He is feeling well no significant pain. He states that the pain he had previously last wee k was worse than the pain from his [place] MEDICAL, SURGICAL, AND PERSONAL HISTORY Past Medical, Surgical, Family, and Social History are reviewed in EPIC. CURRENT PROBLEMS Patient Active Problem List Diagnosis Hepatitis C Restless leg syndrome COPD (chronic obstructive pulmonary disease) Asthma Thyroid disease Hyperlipidemia Diverticulitis Hernia, hiatal Anxiety Emphysema of lung Hypertension Migraine Neuropathy History of tobacco use S/P cervical spinal fusion Thoracic radiculopathy Bilateral arm pain CURRENT MEDICATIONS Current Facility-Administered Medications Medication Dose Route Frequency Provider Last Rate Last Dose acetaminophen (TYLENOL) tablet 650 mg 650 mg Oral Q6H PRN Latonia Gallardo MD 650 mg at 11/03/162046 aluminum & magnesium hydroxide-simethicone (MAALOX PLUS REGULAR STRENGTH) 200-200-20 mg /5 mL suspension 30 mL 30 mL Oral Q4H PRN Latonia Gallardo MD aspirin EC tablet 81 mg 81 mg Oral Daily Latonia Gallardo MD 81 mg at 11/04/16 0811 atorvaSTATin (LIPITOR) tablet 80 mg 80 mg Oral Nightly Latonia Gallardo MD 80 mg at 11/03/16 2257 bisacodyl (DULCOLAX) suppository 10 mg 10 mg Rectal Daily PRN Latonia Gallardo MD budesonide (PULMICORT) 0.5 mg/2 mL nebulizer solution 0.5 mg 0.5 mg Nebulization RT BI D Latonia Gallardo MD 0.5 mg at 11/04/16 0910 busPIRone (BUSPAR) tablet 15 mg 15 mg Oral 2 times per day Latonia Gallardo MD 15 mg at 11/04/16 0810 calcium carbonate (TUMS) chewable tablet 1,000 mg 1,000 mg Oral Q4H PRN Latonia moreno MD calcium carbonate (TUMS) chewable tablet 500 mg 500 mg Oral Daily Latonia Gallardo MD 500 mg at 11/04/16 0810 colchicine tablet 0.6 mg 0.6 mg Oral BID Latonia Gallardo MD 0.6 mg at 11/04/16 0811 docusate sodium (COLACE) capsule 100 mg 100 mg Oral BID PRN Latonia Gallardo MD famotidine (PEPCID) tablet 20 mg 20 mg Oral BID Latonia Gallardo MD 20 mg at 7 0811 fentaNYL (PF) injection 25-50 mcg 25-50 mcg Intravenous Q1H PRN Latonia Gallardo MD 50 mcg at 11/03/16 2130 gabapentin (NEURONTIN) capsule 600 mg 600 mg Oral TID Latonia Gallardo MD 600 mg at 11/04/16 0809 HYDROcodone-acetaminophen (NORCO) 10-325 mg per tablet 1-2 tablet 1-2 tablet Oral Q4H PRN Latonia Gallardo MD 2 tablet at 11/04/16 1211 HYDROmorphone (DILAUDID) injection 0.5-1 mg 0.5-1 mg Intravenous Q2H PRN Latonia Haro ms, MD 1 mg at 11/03/16 2146 ipratropium (ATROVENT) 500 mcg/2.5 mL nebulizer solution 500 mcg 500 mcg Nebulization RT TID Latonia Gallardo MD 500 mcg at 11/04/16 1434 levalbuterol (XOPENEX) 1.25 mg/3 mL nebulizer solution 1.25 mg 1.25 mg Nebulization RT Q4H PRN Latonia Gallardo MD 1.25 mg at 11/04/16 1433 levothyroxine (SYNTHROID, LEVOTHROID) tablet 175 mcg 175 mcg Oral QAM AC Latonia Haro ms, MD 175 mcg at 11/04/16 0757 LORazepam (ATIVAN) tablet 1-2 mg 1-2 mg Oral Q4H PRN Latonia Gallardo MD 2 mg at 0526 magnesium hydroxide (MILK OF MAGNESIA) 400 mg/5 mL suspension 30 mL 30 mL Oral Nightly PRN Latonia Gallardo MD melatonin tablet 3 mg 3 mg Oral Nightly PRN Latonia Gallardo MD 3 mg at 11/03/16 222 4 metoprolol tartrate (LOPRESSOR) tablet 100 mg 100 mg Oral BID Latonia Gallardo MD 10 0 mg at 11/04/16 0811 nicotine (NICODERM) 21 mg/24 hr 1 patch 1 patch Transdermal Daily Latonia Gallardo MD 1 patch at 11/04/16 0817 ondansetron (ZOFRAN) injection 4-8 mg 4-8 mg Intravenous Q6H PRN Latonia Gallardo MD pantoprazole (PROTONIX) DR tablet 40 mg 40 mg Oral Daily Latonia Gallardo MD 40 mg a t 11/04/16 0811 polyethylene glycol (MIRALAX) powder 17 g 17 g Oral Daily PRN Latonia Gallardo MD rOPINIRole (REQUIP) tablet 0.5 mg 0.5 mg Oral TID Latonia Gallardo MD 0.5 mg at 10/23 10/08 0808 senna (SENOKOT) tablet 8.6 mg 8.6 mg Oral BID PRN Latonia Gallardo MD ticagrelor (BRILINTA) tablet 90 mg 90 mg Oral BID Latonia Gallardo MD 90 mg at 11/04 0811 ALLERGIES Allergies Allergen Reactions Doxycycline Anaphylaxis Throat swelling Aspirin Other (See Comments) Ulceration of stomach Adhesive & Tape Rash Albuterol Anxiety Caused severe anxiety. ROS Negative OBJECTIVE: PHYSICAL EXAM BP 118/71 mmHg | Pulse 92 | Temp(Src) 36.5 C (97.7 F) (Oral) | Resp 21 | Ht 1.88 m (6' 2") | Wt 101.5 kg (223 lb 12.3 oz) | BMI 28.72 kg/m2 | SpO2 97% Constitutional: Well developed, in no acute distress, Non-toxic appearance. HENT: Normocephalic, Atraumatic Eyes: PER Neck: No tenderness, Supple, No laryngeal stridor. No thyromegaly or carotid bruit. Lymphatic: No lymphadenopathy noted. Cardiovascular: Normal heart rate, Normal rhythm, No murmurs, No rubs, No gallops. JVP not elevated. Thorax & Lungs: Clear to auscultation, respirations unlabored, No wheezing Abdomen: Bowel sounds normal, Skin: Warm, Dry, No erythema, No rash. Extremities: Intact distal pulses, No edema, No tenderness, No cyanosis, No clubbing. ECG: Reviewed by me LAB RESULTS: LIPID Lab Results Component Value [...] 11/03/2016 HCT 47 11/03/2016 PLT 315 11/03/2016 Result Value VENTRICULAR RATE EKG 100 ATRIAL RATE 100 P-R INTERVAL 134 QRS DURATION 92 Q-T INTERVAL 352 Q-T INTERVAL (CORRECTED) 454 P WAVE AXIS 151 QRS AXIS -26 T AXIS 142 Result Value K 3.7 Result Value CRP 7.99 Result Value CK TOTAL 914 (H) Result Value MG 2.1 Result Value Triglycerides 197 (H) CHOLESTEROL 179 HDL 34 Chol/HDL Ratio 5.3 LDL, Calculated 106 Result Value NA 141 K 4.1 CL 109 CO2 25 ANION GAP 7 GLUCOSE 121 (H) BUN 12 Creatinine, Serum/Plasma 0.81 GFR if not >60 CALCIUM 9.0 BUN/CREA 14.8 ASSESSMENT: STEMI with RENETTA Stent thrombosis Dyslipidemia PLAN[facility] So far he can take baby ASA with it Little pleuritic pain Echo is excellent Electronically signed by: Latonia Gallardo MD [facility] 11/04/2016 Portions of this chart may have been created with [employer] voice recognition software. Occasi onal wrong-word or sound-alike substitutions may have occurred due to the inherent cobos itations of voice recognition software. Please read the chart carefully and recognize, using context, where these substitutions have occurred. erShannan workman Pha rmD - 11/04/2016 2:51 PM PDT PHARMACY SERVICES: ADMISSION MEDICATION REVIEW Jennifer Maldonado is a 55 y.o. male admitted on 11/03/16. Patient is a reliable historian. Location of Patient when reviewed: [] ED [x] Medical Floor Patient s prior to admit medication and over the counter (OTC) medications/herbal supplem ents list obtained from: [x] Verbal interview [x] Patient ABLE to recall name, strength, and directions [] Patient UNABLE to recall name, strength, and direction [] Patient able to recall SOME Name, strength, and directions [] Patient not interviewed or unable to supply information due to: [] Patient/family member provided a complete current medication list or bottles [] MAR from SNF facility: [] Doctor's office: [x] Pharmacy list names: [facility] [] [facility] [employer] (Prescription Monitoring Program) [x] [employer] insurance reported information [] Care Everywhere [] Other sources: Vaccines up to date? Yes No Unsure Influenza [x] [] [] Pneumococcal [x] [] [] Tdap [x] [] [] Shingles [] [x] [] Noted medications discrepancies or medication-related issues: Dosage change: Medication: Prior to Admission Sig: Correct sig: Patient taking differently: Calcium carbonate 500mg 1 tab by mouth daily 1 tab by mouth daily as needed for heartburn Gabapentin 300mg 2 capsules by mouth three times daily 3 capsules by mouth three times jonny y (new dose as of 10/29/16) Hydrocodone- acetaminophen 10-325mg 1-2 tabs by mouth every 4 hours as needed for pain 1-2 tabs by mouth three times daily as needed for pain max of 4 tabs daily 2 tabs by mouth twice daily Omeprazole 20mg 1 capsule by mouth every morning before breakfast 1 capsule by mouth twice daily Ropinirole 0.5mg 1 tab by mouth three times daily 1 tab by mouth nightly as needed for rest less leg Medication added: Medication: Prior to Admission Sig: Buspirone 15mg 1 tab by mouth twice daily Levalbuterol 1.25mg / 3ml 1 vial via nebulizer three times daily Levalbuterol 45mcg/puff inh 1 puff into the lungs every 4-6 hours as needed for wheezing Cyclobenzaprine 10mg 1 tab by mouth twice daily as needed for muscle spasm Removed therapy: Medication: Prior to Admission Sig: Reason for Removal: Buspirone 10mg 15mg by mouth twice daily Wrong strength Levalbuterol 0.63/3ml 1 amp by nebulizer every 4 hours Wrong strength and sig Recreational Drug Use: Drug: Route Frequency: Last Used: Marijuana Edible (brownies) As needed for sleep 2 weeks ago Medication review performed and electronically signed by Patrizia Kan, Catering Associate 7 13:32 Reviewed by Shannan Justin PHARMD 11/04/2016 14:50 Latonia Mays MD - 11/03/2016 10:22 PM PDT PATIENT NAME: Jennifer Maldonado : 1960: AGE: 55 y.o. PRIMARY CARE: Tommy Gomez MD INPATIENT FOLLOW UP VISIT Date of Service: 11/03/2016 HISTORY OF PRESENT ILLNESS: Jennifer Maldonado is a 55 y.o. male with a history of STEMI and thrombosis of stented pooja ry. He is being seen today for follow up. Nurses called because he has had increased chest pain. He says pain is now pleuritic. Anterior chest. No nausea or vomiting and no diaphoresis. Narcotics up to and including dilaudid were tried and he has the same pain. MEDICAL, SURGICAL, AND PERSONAL HISTORY Past Medical, Surgical, Family, and Social History are reviewed in EPIC. CURRENT PROBLEMS Patient Active Problem List Diagnosis Hepatitis C Restless leg syndrome COPD (chronic obstructive pulmonary disease) Asthma Thyroid disease Hyperlipidemia Diverticulitis Hernia, hiatal Anxiety Emphysema of lung Hypertension Migraine Neuropathy History of tobacco use S/P cervical spinal fusion Thoracic radiculopathy Bilateral arm pain CURRENT MEDICATIONS Current Facility-Administered Medications Medication Dose Route Frequency Provider Last Rate Last Dose acetaminophen (TYLENOL) tablet 650 mg 650 mg Oral Q6H PRN Latonia Gallardo MD 650 mg at 11/03/162046 aluminum & magnesium hydroxide-simethicone (MAALOX PLUS REGULAR STRENGTH) 200-200-20 mg /5 mL suspension 30 mL 30 mL Oral Q4H PRN Latonia Gallardo MD [START ON 11/04/2016] aspirin EC tablet 81 mg 81 mg Oral Daily Latonia Gallardo MD bisacodyl (DULCOLAX) suppository 10 mg 10 mg Rectal Daily PRN Latonia Gallardo MD budesonide (PULMICORT) 0.5 mg/2 mL nebulizer solution 0.5 mg 0.5 mg Nebulization RT BI D Latonia Gallardo MD 0.5 mg at 11/03/162058 busPIRone (BUSPAR) tablet 15 mg 15 mg Oral 2 times per day Latonia Gallardo MD 15 mg at 11/03/162048 calcium carbonate (TUMS) chewable tablet 1,000 mg 1,000 mg Oral Q4H PRN Latonia moreno MD calcium carbonate (TUMS) chewable tablet 500 mg 500 mg Oral Daily Latonia Gallardo MD 500 mg at 11/03/161756 colchicine tablet 0.6 mg 0.6 mg Oral BID Latonia Gallardo MD docusate sodium (COLACE) capsule 100 mg 100 mg Oral BID PRN Latonia Gallardo MD famotidine (PEPCID) tablet 20 mg 20 mg Oral BID Latonia Gallardo MD 20 mg at 7 2048 fentaNYL (PF) injection 25-50 mcg 25-50 mcg Intravenous Q1H PRN Latonia Gallardo MD 50 mcg at 11/03/162129 gabapentin (NEURONTIN) capsule 600 mg 600 mg Oral TID Latonia Gallardo MD 600 mg at 11/03/162047 HYDROcodone-acetaminophen (NORCO) 10-325 mg per tablet 1-2 tablet 1-2 tablet Oral Q4H PRN Latonia Gallardo MD HYDROmorphone (DILAUDID) injection 0.5-1 mg 0.5-1 mg Intravenous Q2H PRN Latonia Haro ms, MD 1 mg at 11/03/162145 ipratropium (ATROVENT) 500 mcg/2.5 mL nebulizer solution 500 mcg 500 mcg Nebulization RT TID Latonia Gallardo MD 500 mcg at 11/03/162058 levalbuterol (XOPENEX) 1.25 mg/3 mL nebulizer solution 1.25 mg 1.25 mg Nebulization RT Q4H PRN Latonia Gallardo MD levothyroxine (SYNTHROID, LEVOTHROID) tablet 175 mcg 175 mcg Oral QAM AC Latonia Haro ms, MD 175 mcg at 11/03/161757 LORazepam (ATIVAN) tablet 1-2 mg 1-2 mg Oral Q4H PRN Latonia Gallardo MD 1 mg at 07/10 magnesium hydroxide (MILK OF MAGNESIA) 400 mg/5 mL suspension 30 mL 30 mL Oral Nightly PRN Latonia Gallardo MD melatonin tablet 3 mg 3 mg Oral Nightly PRN Latonia Gallardo MD [START ON 11/04/2016] metoprolol tartrate (LOPRESSOR) tablet 100 mg 100 mg Oral BID Aleksandra Gallardo MD metoprolol tartrate (LOPRESSOR) tablet 50 mg 50 mg Oral Once Latonia Gallardo MD nicotine (NICODERM) 21 mg/24 hr 1 patch 1 patch Transdermal Daily Latonia Gallardo MD 1 patch at 11/03/16 1746 ondansetron (ZOFRAN) injection 4-8 mg 4-8 mg Intravenous Q6H PRN Latonia Gallardo MD pantoprazole (PROTONIX) DR tablet 40 mg 40 mg Oral Daily Latonia Gallardo MD 40 mg a t 11/03/16 1728 polyethylene glycol (MIRALAX) powder 17 g 17 g Oral Daily PRN Latonia Gallardo MD rOPINIRole (REQUIP) tablet 0.5 mg 0.5 mg Oral TID Latonia Gallardo MD 0.5 mg at 10/23 senna (SENOKOT) tablet 8.6 mg 8.6 mg Oral BID PRN Latonia Gallardo MD ticagrelor (BRILINTA) tablet 180 mg 180 mg Oral Once Ryan Cristin Petersen MD 180 mg at 0 11/03/16 154 ticagrelor (BRILINTA) tablet 90 mg 90 mg Oral BID Latonia Gallardo MD 90 mg at 11/03 ALLERGIES Allergies Allergen Reactions Doxycycline Anaphylaxis Throat swelling Aspirin Other (See Comments) Ulceration of stomach Adhesive & Tape Rash Albuterol Anxiety Caused severe anxiety. ROS OBJECTIVE: PHYSICAL EXAM BP 144/81 mmHg | Pulse 99 | Temp(Src) 36.8 C (98.2 F) (Oral) | Resp 15 | Ht 1.88 m (6' 2") | Wt 105.235 kg (232 lb) | BMI 29.77 kg/m2 | SpO2 95% Constitutional: Well developed, in no acute distress, Non-toxic appearance. No diaphoresis HENT: Normocephalic, Atraumatic, Eyes: PER Neck: No tenderness, Supple, No laryngeal stridor. No thyromegaly or carotid bruit. Lymphatic: No lymphadenopathy noted. Cardiovascular: Normal heart rate, Normal rhythm, No murmurs, No rubs, No gallops. JVP not elevated. Thorax & Lungs: scattered wheezes Abdomen: Bowel sounds normal, Soft, No tenderness, No masses, No hepatosplenomegaly. Skin: Warm, Dry, No erythema, No rash. Extremities: Intact distal pulses, No edema, No tenderness, No cyanosis, No clubbing. No he matoma. Neurologic: Alert & oriented x 3, No focal deficits noted. Psychiatric: anxious ECG: No ST elevation LAB RESULTS: LIPID No results found for: CHOL, TRIG, HDL, LDL, CHOLHDL, LDLEX, HDLEX, TRIGEX, CHOLEX CHEMISTRY Lab Results Component Value Date GLU 134* 11/03/2016 NA 139 11/03/2016 K 3.4* 11/03/2016 CL 105 11/03/2016 CO2 24 11/03/2016 CALCIUM 8.9 11/03/2016 ALKPHOS 79 11/03/2016 AST 18 11/03/2016 ALT 25 11/03/2016 BILITOT 0.7 11/03/2016 CREA 0.80 11/03/2016 BUN 19* 11/03/2016 HEMATOLOGY Lab Results Component Value Date WBC 12.5* 11/03/2016 HGB 16.4 11/03/2016 HCT 48.5 11/03/2016 PLT 315 11/03/2016 ASSESSMENT: Post [place] pericarditis STEMI today - no ECG changes now bronchospasm PLAN: Colchicine Cut back on narcotics as they are not helping and he may have further complications from na rcotics themselves (breathing) Echo in am Increase the bronchodilators Insomnia has been a problem - safe medication is melatonin Continue low dose ativan Electronically signed by: Latonia Gallardo MD [facility] 11/03/2016 Portions of this chart may have been created with [employer] voice recognition software. Occasi onal wrong-word or sound-alike substitutions may have occurred due to the inherent cobos itations of voice recognition software. Please read the chart carefully and recognize, using context, where these substitutions have occurred. atonia Gallardo MD - 11/03/2016 7:54 PM PDTSheath removed from right femoral sedation given Pressure held No hematoma Distal pulses intact documented in this encounter H&P Notes Latonia Gallardo MD - 11/03/2016 4:00 PM PDTFormatting of this note might be different fr om the original. Admission H&P Referring Provider: [place] Primary Care: Dr. Gomez Primary Algebraist: Dr. Gallardo Reason for Admission: Chest pain and EKG with ST elevation 11/03/2016 Jennifer Maldonado is a 55 y.o. male admitted today s/p cardiac catheterization. History of Present Illness: Bill was brought by ambulance to the ED after he began to complain of chest pain while at the [place]. He states he experienced some chest discomfort and vomited once last night; today a t about 10:00, he began to experience acute chest pain. The pain was constant. Resting helpe d to alleviate the pain; activity exacerbated the pain. The pain was substernal in location and radiated to both axilla and down both arms, to the xyphoid process, and to the back. He describes the pain as "crushing, ripping, and sharp" in quality. He says that at its most se gilberto, the pain was a 14-15/10. He states his current level of pain is a 4-6/10. He denies na usea and headache. He states he did experience shortness of breath, light-headedness, diapho resis, and one episode of vomiting. The patient notes that he always feels SOB from COPD and asthma and that he is on 2L of O2 per day. Bill was taken to the [facility] where his STEMI required stent thrombosis of the RCA and P TCA. Past Medical History: In addition to below, hiatal hernia. Past Medical History Diagnosis Date Hepatitis C COPD (chronic obstructive pulmonary disease) (HCC) Restless leg syndrome Asthma Thyroid disease Hyperlipidemia Diverticulitis Hernia, hiatal Anxiety Emphysema of lung (HCC) Hypertension Migraine Neuropathy (HCC) Thyroid disease History of tobacco use Thoracic radiculopathy 08/17/2016 Current Medications: No current facility-administered medications on file prior to encounter. Current Outpatient Prescriptions on File Prior to Encounter Medication Sig Dispense Refill busPIRone (BUSPAR) 10 MG tablet Take 15 mg by mouth every 12 hours. calcium carbonate (TUMS) 500 mg chewable tablet Take 1 tablet by mouth Daily. famotidine (PEPCID) 20 mg tablet Take 20 [...] the lungs 4 times da adrian. levalbuterol (XOPENEX) 0.63 mg/3 mL nebulizer solution Take 1 ampule by nebulization ev rasheed 4 hours as needed for Wheezing. levothyroxine (SYNTHROID, LEVOTHROID) 175 MCG tablet Take 175 mcg by mouth every mornin g (before breakfast). metoprolol tartrate (LOPRESSOR) 50 mg tablet Take 50 mg by mouth 2 times daily. omeprazole (PRILOSEC) 20 mg capsule Take 20 mg by mouth every morning (before breakfast ). rOPINIRole (REQUIP) 0.5 MG tablet Take 0.5 mg by mouth 3 times daily. Allergies: Allergies Allergen Reactions Doxycycline Anaphylaxis Throat swelling Aspirin Other (See Comments) Ulceration of stomach Adhesive & Tape Rash Albuterol Anxiety Caused severe anxiety. Family History: Family History Problem Relation Age of Onset Heart disease Father Asthma Father Emphysema Father Thyroid disease Father goiter Arthritis Father Heart failure Father Heart disease Mother Diabetes Mother Arthritis Mother Bleeding problems Mother Gout Mother Hypertension Mother Heart failure Mother Other (see comment) Mother lung prob Crohn's disease Sister Other (see comment) Sister lung prob Heart disease Sister Asthma Sister Allergic rhinitis Sister Thyroid disease Sister Sleep Apnea Sister Diabetes Sister borderline Elevated lipids Sister Hypertension Sister Other (see comment) Sister seasonal affective disorder Liver disease Sister fatty PTSD Sister chronic Other (see comment) Sister sjorgren's syndrome GERD Sister Other (see comment) Sister diverticulosis Heart failure Sister Asthma Sister Other (see comment) Sister myasthenia gravis Arthritis Paternal Grandfather Arthritis Paternal Grandmother Hypertension Maternal Grandfather Diabetes Maternal Grandfather Heart attack Maternal Grandfather 55 Hypertension Maternal Grandmother Seizures Paternal Aunt epilepsy Hypertension Paternal Aunt Diabetes Paternal Aunt Early Paternal Aunt 19 Hypertension Maternal Uncle Alcohol abuse Maternal Uncle Heart disease Maternal Uncle Heart attack Maternal Uncle Heart failure Maternal Aunt Other (see comment) Maternal Aunt No Known Problems Child No Known Problems Child Social History: In addition to what is listed below, the patient states he drinks on occasion. When he does drink, he has one equivalent of alcohol in the form of a shot. 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 Sexual Activity: Partners: Male Other Topics Concern Not on file Social History Narrative Review of Systems: Review of Systems Constitutional: Negative. Positive for fever, chills in the last week. Negative for activi ty change, appetite change, and unexpected weight change. HENT: Positive for neck pain. Positive for migraines. Respiratory: Positive for shortness of breath, wheezing, and cough productive of yellow, fo ul-tasting phlegm. Cardiovascular: Positive for chest pain. Negative for chest pressure and leg swelling. Gastrointestinal: Positive for one episode of emesis and GERD. Negative for nausea, diarrhe a, constipation, blood in stool, anal bleeding and rectal pain. Genitourinary: Positive for one episode of burning with urination this past week. Negative for urgency, frequency, hematuria, flank pain, and difficulty urinating. Musculoskeletal: Positive for neck pain. The patient states he "aches all over." Skin: Negative. Negative for color change, pallor, rash and wound. Neurological: Positive for lightheadedness and migraines. Hematological: Negative for adenopathy. Does not bruise/bleed easily. Psychiatric/Behavioral: The patient is anxious on exam. All other systems reviewed and are negative. Physical Exam: PHYSICAL EXAM Latest VS: BP 137/92 mmHg | Pulse 100 | Temp(Src) (Oral) | Resp 15 | Ht 1.88 m (6' 2") | Wt 105.235 kg (232 lb) | BMI 29.77 kg/m2 | SpO2 97% Vital sign ranges for last 24hrs: Input and output for last 24hrs: Pulse: [100] 100 Resp: [15] 15 BP: (137)/(92) 137/92 mmHg SpO2 Av % Min: 97 % Max: 97 % Flow (L/min) Av.7 Min: 4 Max: 15 Body mass index is 29.77 kg/(m^2).; Body surface area is 2.34 meters squared. Constitutional General appearance: well developed, the patient appears anxious on exam but is in no a cute distress Cardiovascular Auscultation: normal S1 S2; no gallop or rub or click Murmur: No murmur present Pedal pulses: pulses 2+, symmetric Peripheral circulation: no cyanosis, clubbing, edema, or varicosities Gastrointestinal Abdomen: Tender to palpation with guarding in the ULQ and the LLQ; otherwise soft witho ut tenderness, no masses; normal bowel sounds Liver and spleen: no enlargement Mental Status/Neurological Orientation: oriented to time, place, and person Affect/Mood: agitated and anxious Respiratory Respiratory effort: no intercostal retractions or use of accessory muscles Auscultation: Expiratory wheeze; no rales, rhonchi Eyes Conjunctiva & lids: conjunctiva and lids normal; CHANELL Ears, Nose and Throat Lips: no pallor or cyanosis Extremities Digits and nails: no clubbing, cyanosis, or petechiae Skin Inspection: no visible rashes, lesions, or ulcerations Test Results: Recent Results (from the past 24 hour(s)) CBC w/ Auto Differential Result Value Ref Range WBC 12.5 (H) 4.0-11.0 K/uL RBC 5.06 4.30-5.70 M/uL Hgb 16.4 13.5-18.0 g/dL Hct 48.5 40.0-51.0 % MCV 95.9 83.0-101.0 fL MCH 32.3 28.0-35.0 pg MCHC 33.7 32.0-36.0 g/dL RDW-CV 13.5 <15.0 % Platelet Count 315 140-440 K/uL MPV 8.5 fL % Neutrophils 49.8 45.0-82.0 % % Lymphocytes 36.9 20.0-45.0 % % Monocytes 6.8 4.0-12.0 % % Eosinophils 3.9 0.0-5.0 % % Basophils 2.6 (H) 0.0-1.0 % Absolute Neutrophils 6.20 1.80-8.50 K/uL Absolute Lymphocytes 4.60 (H) 0.60-3.20 K/uL Absolute Monocytes 0.80 0.00-1.00 K/uL Absolute Eosinophils 0.50 (H) 0.00-0.40 K/uL Absolute Basophils 0.30 (H) 0.00-0.10 K/uL Protime INR Result Value Ref Range PROTIME 12.0 11.3-13.9 seconds INR 0.87 (L) 0.90-1.10 Troponin I Result Value Ref Range Troponin I 0.06 (H) <0.06 ng/mL ECG 12 lead Result Value Ref Range VENTRICULAR RATE EKG 62 BPM ATRIAL RATE 62 BPM P-R INTERVAL 136 ms QRS DURATION 88 ms Q-T INTERVAL 414 ms Q-T INTERVAL (CORRECTED) 420 ms P WAVE AXIS 64 degrees QRS AXIS 59 degrees T AXIS 89 degrees INTERPRETATION TEXT Normal sinus rhythm ST elevation, consider inferolateral injury or acute infarct ACUTE W[place] / STEMI Consider right ventricular involvement in acute inferior infarct Abnormal ECG No previous ECGs available Confirmed by LATONIA GALLARDO MD [id number]) on 11/03/2016 4:10:14 PM Comprehensive Metabolic Panel Result Value Ref Range NA 139 136-149 mmol/L K 3.4 (L) 3.5-5.1 mmol/L CL 105 98-109 mmol/L CO2 24 24-31 mmol/L ANION GAP 10 3-16 mmol/L GLUCOSE 134 (H) 70-109 mg/dL BUN 19 (H) 7-18 mg/dL Creatinine, Serum/Plasma 0.80 0.60-1.30 mg/dL eGFR if not >60 >=60 mL/min/1.73m2 CALCIUM 8.9 8.3-10.5 mg/dL ALBUMIN 3.7 3.2-5.0 g/dL BILIRUBIN TOTAL 0.7 0.1-1.5 mg/dL Total protein 6.4 6.0-7.8 g/dL AST 18 10-42 U/L ALT 25 6-45 U/L ALK PHOS 79 40-110 U/L GLOBULIN 2.7 2.1-3.8 g/dL Albumin/Globulin ratio 1.4 0.8-2.0 BUN/CREA 23.8 POC ACT Result Value Ref Range Activated Clotting Time, POC 355 (H) 125-175 second(s) POC ACT Result Value Ref Range Activated Clotting Time, POC 277 (H) 125-175 second(s) POC ACT Result Value Ref Range Activated Clotting Time, POC 285 (H) 125-175 second(s) ECG 12 lead Result Value Ref Range VENTRICULAR RATE EKG 102 BPM ATRIAL RATE 102 BPM P-R INTERVAL 134 ms QRS DURATION 80 ms Q-T INTERVAL 360 ms Q-T INTERVAL (CORRECTED) 469 ms P WAVE AXIS 72 degrees QRS AXIS 41 degrees T AXIS 71 degrees INTERPRETATION TEXT Sinus tachycardia Nonspecific ST abnormality Abnormal ECG When compared with ECG of 03-NOV-2016 11:38, (Unconfirmed) Vent. rate has increased BY [address] less elevated in Inferior leads T wave amplitude has decreased in Inferior leads Confirmed by LATONIA GALLARDO MD ([id number]) on 11/03/2016 4:10:37 PM Impression/Plan: 1. STEMI requiring stents. Complicated by thrombosis of the RCA. DESvstents 2. Anxiety 3. Chest pain Plan: 1. Admit to CCU for post W[place] monitoring with telemetry for arrhythmia and post [place] mechanical complications Trend cardiac biomarkers for peak CPK Aspirin 81 mg daily to be continued indefinitely given history of CAD as a secondary preven tion measure. Plavix 75mg daily to be continued for ideally 1 year given RENETTA placement/medical therapy i n setting of ACS presentation Moderate-High Intensity statin therapy; check lipid profile Beta Javier therapy with metoprolol 50 mg bid Monitor blood pressures and consider CAITLYN-I if elevated Cardiac Rehabilitation referral Echocardiogram to assess LV function 2. Xanax prescribed in orders for anxiety 3. Fentanyl prescribed in orders for pain documented in this e ncounter Procedure Notes Latonia Gallardo MD - 11/03/2016 3:31 PM PDTAssociated Order(s): CV CARDIAC PROCEDUREForm atting of this note might be different from the original. Jennifer Maldonado is a 55 y.o. male patient. 1. ST elevation myocardial infarction (STEMI) of inferior wall (HCC) 2. Chest pain in adult 3. Diaphoresis 4. Anxiety attack Past Medical History Diagnosis Date Hepatitis C COPD (chronic obstructive pulmonary disease) (HCC) Restless leg syndrome Asthma Thyroid disease Hyperlipidemia Diverticulitis Hernia, hiatal Anxiety Emphysema of lung (HCC) Hypertension Migraine Neuropathy (HCC) Thyroid disease History of tobacco use Thoracic radiculopathy 08/17/2016 Blood pressure 137/92, pulse 100, temperature 36.1 C (97 F), temperature source Oral, r ace. rate 15, height 1.88 m (6' 2"), weight 105.235 kg (232 lb), SpO2 97 %. CV Cardiac Procedure Date/Time: 11/03/2016 15:31 Performed by: LATONIA GALLARDO Authorized by: LATONIA GALLARDO Consent: The procedure was performed in an emergent situation. Verbal consent obtained. Risks and benefits: risks, benefits and alternatives were discussed Consent given by: patient Patient understanding: patient states understanding of the procedure being performed Patient consent: the patient's understanding of the procedure matches consent given Procedure consent: procedure consent matches procedure scheduled Relevant documents: relevant documents present and verified Test results: test results available and properly labeled Site marked: the operative site was marked Imaging studies: imaging studies available Required items: required blood products, implants, devices, and special equipment available Patient identity confirmed: verbally with patient Time out: Immediately prior to procedure a "time out" was called to verify the correct chao ent, procedure, equipment, learning support assistant and site/side marked as required. Preparation: Patient was prepped and draped in the usual sterile fashion. Local anesthesia used: yes Local anesthetic: lidocaine 1% without epinephrine Patient sedated: yes Sedatives: fentanyl and midazolam Vitals: Vital signs were monitored during sedation. Patient tolerance: Patient tolerated the procedure well with no immediate complications LEFT CARDIAC CATHETERIZATION AND CORONARY INTERVENTION REPORT PATIENT NAME: Jennifer Maldonado DATE OF : 1960 DATE OF PROCEDURE: 11/03/2016 PRIMARY CARE PROVIDER: Tommy Gomez MD CROSS CUT SAWYER: Dr. Latonia Gallardo MD, [facility] PRE-PROCEDURE DIAGNOSIS: STEMI POST-PROCEDURE DIAGNOSIS: same PROCEDURES PERFORMED: 1. Left Heart Catheterization for pressures 2. Coronary Angiography 3. Left Venticulography 4. Percutaneous coronary intervention for RCA 5. Stent thrombosis of the RCA and PTCA and IVUS of the RCA CAD Presentation: STEMI Anginal Classification (within 2 weeks): class IV Anti-Anginal med (within 2 weeks): no Heart Failure (within 2 weeks): no Cardiomyopathy or LV Systolic Dysfunction: no Cardiogenic shock w/in 24 hours: no Pre-operative Evaluation Before Non-Cardiac Surgery: no Cardiac Arrest w/in 24 hours: no Evaluation of valvular heart disease: no Stress or Imaging Studies Performed: no Echocardiogram no Patient Risk factors: Age 55 y.o. advanced age (older than 55 for men, 65 for women), dyslipidemia, family history of prematu re cardiovascular disease and male gender; Diabetes Mellitus on Insulin: no Prior PCI: no Estimated Creatinine Clearance: 132 mL/min (based on Cr of 0.8). kidney dx: no Chronic Lung disease: yes BMI: Body mass index is 29.77 kg/(m^2). History of PAD: no Prior history of CVA: no 2. Indication For Coronary Revascularization Please indicate one of the following if PCI is performed: STEMI By AUC criteria, PCI is Appropriate Appropriate Use Calculator - PCI STEMI or Suspected STEMI Appropriate care Indication 2 Score 9 DESCRIPTION OF PROCEDURE: Informed consent was obtained from the patient, and a time-out was performed to verify the patient's identification and planned procedure. Please refer to the computer log entry form for precise details. The right radial was prepped and draped in the usual sterile fashion. The wire would not pass the mid radial. The patient's right and left groins had been prep ped and draped in the usual sterile fashion, and anesthetized with 1% lidocaine. A 6F sheath was inserted. Coronary angiography was performed in multiple views using 5 Central African JL 3.5 d iagnostic and a JR4 guide. . A 5 gabonese pigtail catheter was advanced into the left ventr icle, pressures were measured, and left ventriculography was performed. A pullback across t he valve was used to assess if there was a gradient across the aortic valve. After review of the digital images, I elected to proceed with the coronary intervention. T he patient's anticoagulation regimen consisted aspirin and Bivalirudin. of 6 F JR 4 . guid e was used to cannulate the RCA vessel. This did not fit well and was exchanged for an AR 1 guide. The lesion was crossed with two wires a Forte Floppy and a Whisper wire. It was p re dilated with 3.0 X 15 mm balloon. The lesion was then treated with a 3.5 X 24 Promus RENETTA stent. + a 4.0 X 16 Promus RENETTA stent. The patient was returned to the ICU and developed further pain and was returned to the lab where an additional stent a 4.0 X 28 Promus was placed. Access was the left femoral. IVUS was performed. Buffered IC integrelin was administered. We used heparin for anticoagulati on and did multiple ACT's. The arteries were stiff and calcified. It was difficult to pass anything. We resorted to placing a 1.5 mm Mini Trek 12 mm and through this we were able to exchange for a Wiggle wire 300. We then went back with a 4.5 X 20 NC balloon and dilated al victoria the stented segment. We repeated IVUS of the proximal section of the sent. There was an excellent result. Before the patient was off the table he again had increasing pain. I had left the sheath i n and so we took an angiographic catheter and looked one more time. The artery was wide ope n without thrombus. Angioseal was utilized to achieve successful hemostasis in the right femoral artery. The left sheath was sutured in position and there was no hematoma. There were no immediate comp lications. Estimated blood loss was: 25 cc. Fluro Time: 38.6 min Contrast: 196 mls of Omnipaque 350 Moderate sedation start time: 1152. Moderate sedation stop time: 1231. I, Latonia Gallardo MD, reviewed the patient's pre-sedation assessment and vital signs, supervised and directe d the Moderate Sedation from administration to patient stabilization for recovery. FINDINGS: Hemodynamics: Left ventricular end-diastolic pressure (LVEDP) was 17 mm Hg. There was no gradient acro ss the aortic valve. Left Ventriculography: Minimal inferior hypokinesis. EF 60% No MR Left main coronary artery: Normal Left anterior descending coronary artery: Large vessel mid section 20% multiple areas. La rge diagonal with no significant disease. Circumflex coronary artery: Non dominant and no obstructive lesions Right coronary artery: Huge dominant vessel 100% occluded with RUPA 0 flow Post intervention: No residual stenosis RUPA 3 flow No residual stenosis and no thrombus CONCLUSIONS: 1. Inferior [place] 100% RCA - hypercoagulable state and thrombosis [...] take Aspirin switch to Effient given thrombosis Latonia Gallardo MD, [facility], [facility] DATE/TIME: 11/03/2016 15:33 11/03/2016 15:33 Latonia Gallardo 11/03/2016 documented in this e ncounter ED Notes Ryan Petersen MD - 11/03/2016 11:25 AM PDTFormatting of this note might be different fr om the original. [facility] Jennifer Maldonado Emergency Department Encounter Note [address] [place] [address] PCP:Tommy Gomez MD [phone] CHIEF COMPLAINT: Chief Complaint Patient presents with Chest Pain present off and on for one week, worsening today and especially over the last 45 minutes ED Room: [facility] * ED Triage Notes Kierra Bhat RN 11/03/2016 11:52 Pt sent from [place] with severe chest pain, starting approx half hour ago HPI Jennifer Maldonado is a 55 y.o. male who presents to the Emergency Department with chest pa in and pressure ongoing for the last 45 minutes. Patient arrives VERY anxious and is hyperv entilating and crying and is breathing fast complaining of tingling around his mouth and in his fingers. He says he was at the [facility] and had an appointment but never made it. He has b een having chest pain since 929 actually but it got worse 45 minutes ago. Now he feels lik e he is anxious and breathing fast and his chest is being ripped apart and he is crying and feels terrible. No relief with NTG en route per EMS and ASA 324 mg PO given as well. EKG n ormal en route and faxed to us ahead of his arrival He says that for one week he has been having pain. He says that it just steadily has been worsening. Takes chronic pain medication with no relief. PAST MEDICAL & SURGICAL HISTORY Past Medical History Diagnosis Date Hepatitis C COPD (chronic obstructive pulmonary disease) (HCC) Restless leg syndrome Asthma Thyroid disease Hyperlipidemia Diverticulitis Hernia, hiatal Anxiety Emphysema of lung (HCC) Hypertension Migraine Neuropathy (HCC) Thyroid disease History of tobacco use Thoracic radiculopathy 08/17/2016 Past Surgical History Procedure Laterality Date Cholecystectomy 2010 Rotator cuff repair Left 1995 Knee arthroscopy Right Thumb surgery Left 1986 attachment Ulnar tunnel release Left 1996 Finger fracture surgery Left 2003 middle finger crush injury; tip replacement Cervical spine surgery N/A 01/07/2015 Procedure: C3-4, C4-5, C5-6, C6-7, Anterior Cervical Discectomy w/ Fusion and Plating, Po sterior Fusion at C3-4, C4-5, C5-6, C6-7, C7-T1, and T1-2; Surgeon: Aleksander Stern, DO; Lo cation: [facility] MAIN OR CURRENT MEDICATIONS Current Discharge Medication List CONTINUE these medications which have NOT CHANGED Details busPIRone (BUSPAR) 10 MG tablet Take 15 mg by mouth every 12 hours. calcium carbonate (TUMS) 500 mg chewable tablet Take 1 tablet by mouth Daily. famotidine (PEPCID) 20 mg tablet Take 20 mg by mouth 2 times daily. fluticasone-salmeterol (ADVAIR) 500-50 mcg/puff diskus inhaler Inhale 1 puff into the lungs Twice Daily. gabapentin (NEURONTIN) 300 mg capsule Take 2 capsules by mouth 3 times daily. Qty: 180 capsule, Refills: 2 HYDROcodone-acetaminophen (NORCO) 10-325 mg per tablet Take 1-2 tablets by mouth every 4 ho urs as needed for Pain. Qty: 120 tablet, Refills: 0 ipratropium (ATROVENT HFA) 17 mcg/puff inhaler Inhale 2 puffs into the lungs 4 times daily. levalbuterol (XOPENEX) 0.63 mg/3 mL nebulizer solution Take 1 ampule by nebulization every 4 hours as needed for Wheezing. levothyroxine (SYNTHROID, LEVOTHROID) 175 MCG tablet Take 175 mcg by mouth every morning (b efore breakfast). metoprolol tartrate (LOPRESSOR) 50 mg tablet Take 50 mg by mouth 2 times daily. omeprazole (PRILOSEC) 20 mg capsule Take 20 mg by mouth every morning (before breakfast). rOPINIRole (REQUIP) 0.5 MG tablet Take 0.5 mg by mouth 3 times daily. ALLERGIES Allergies Allergen Reactions Doxycycline Anaphylaxis Throat swelling Aspirin Other (See Comments) Ulceration of stomach Adhesive & Tape Rash Albuterol Anxiety Caused severe anxiety. FAMILY AND SOCIAL HISTORY Family History Problem Relation Age of Onset Heart disease Father Asthma Father Emphysema Father Thyroid disease Father goiter Arthritis Father Heart failure Father Heart disease Mother Diabetes Mother Arthritis Mother Bleeding problems Mother Gout Mother Hypertension Mother Heart failure Mother Other (see comment) Mother lung prob Crohn's disease Sister Other (see comment) Sister lung prob Heart disease Sister Asthma Sister Allergic rhinitis Sister Thyroid disease Sister Sleep Apnea Sister Diabetes Sister borderline Elevated lipids Sister Hypertension Sister Other (see comment) Sister seasonal affective disorder Liver disease Sister fatty PTSD Sister chronic Other (see comment) Sister sjorgren's syndrome GERD Sister Other (see comment) Sister diverticulosis Heart failure Sister Asthma Sister Other (see comment) Sister myasthenia gravis Arthritis Paternal Grandfather Arthritis Paternal Grandmother Hypertension Maternal Grandfather Diabetes Maternal Grandfather Heart attack Maternal Grandfather 55 Hypertension Maternal Grandmother Seizures Paternal Aunt epilepsy Hypertension Paternal Aunt Diabetes Paternal Aunt Early Paternal Aunt 19 Hypertension Maternal Uncle Alcohol abuse Maternal Uncle Heart disease Maternal Uncle Heart attack Maternal Uncle Heart failure Maternal Aunt Other (see comment) Maternal Aunt No Known Problems Child No Known Problems Child Social History Social History Marital Status: Spouse Name: IMAN MALDONADO Number of Children: 2 Years of Education: N/A Occupational History RETIRED Social History Main Topics Smoking status: Current Some Day Smoker -- 0.50 packs/day for 10 years Types: Cigarettes Smokeless tobacco: Never Used Comment: Trying to quit Alcohol Use: 0.0 oz/week 0 Standard drinks or equivalent per week Comment: rarely Drug Use: 2.00 per week Special: Marijuana Comment: Uses edible for sleep on occasion; history of methamphetamine use, 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 Sexual Activity: Partners: Male Other Topics Concern None Social History Narrative REVIEW OF SYSTEMS Review of Systems Constitutional: Negative for fever and chills. Respiratory: Negative for cough and hemoptysis. Cardiovascular: Positive for chest pain. Gastrointestinal: Positive for nausea. Neurological: Positive for dizziness. As in history of present illness. A 10 system review was otherwise negative. PHYSICAL EXAM VITAL SIGNS: (first vital signs): Body mass index is 29.77 kg/(m^2). Constitutional: male patient, Moderate distress. VERY anxious. Alert and appropriate. Actively hyperventilating HEENT: Atraumatic, PERRL, Oropharynx benign. Neck: Supple with full range of motion. No JVD, lymphadenopathy, or meningismus. Respiratory: Good air movement bilaterally. Positive wheezes, No, rales. Cardiovascular: Normal S1 S2. Abdomen: Soft, nontender. No rebound, guarding, or masses. Bowel tones normal. No pulsa tile masses Back: No CVA tenderness. No midline thoracic or lumbar spinal tenderness. Extremities: Nontender. No edema, no calf asymmetry. Present distal pulses. Skin: Warm, Dry, No rashes. Capillary refill is brisk <3 seconds and shows good perfusion . Neurologic: Alert & oriented. Cranial nerves II-XII intact. Gait and speech are normal. No focal deficits. Psychiatric: Normal mood, affect and judgement. No evidence of suicidal or homicidal idea tion EKG Emergency Department EKG interpretation: November 03, 2016 at 11:17 Rate: 93 Rhythm: NSR NE interval: Normal QRS: Normal ST segments: Nonspecific changes T-waves: Normal Comments: No acute STEMI Emergency Department EKG interpretation: November 03, 2016 at 11:38 Rate: 62 Rhythm: NSR NE interval: Normal QRS: Normal ST segments: STEMI T-waves: STEMI Comments: Inferior STEMI LABS Results for orders placed or performed during the hospital encounter of 11/03/16 CBC w/ Auto Differential Result Value Ref Range WBC 12.5 (H) 4.0-11.0 K/uL RBC 5.06 4.30-5.70 M/uL Hgb 16.4 13.5-18.0 g/dL Hct 48.5 40.0-51.0 % MCV 95.9 83.0-101.0 fL MCH 32.3 28.0-35.0 pg MCHC 33.7 32.0-36.0 g/dL RDW-CV 13.5 <15.0 % Platelet Count 315 140-440 K/uL MPV 8.5 fL % Neutrophils 49.8 45.0-82.0 % % Lymphocytes 36.9 20.0-45.0 % % Monocytes 6.8 4.0-12.0 % % Eosinophils 3.9 0.0-5.0 % % Basophils 2.6 (H) 0.0-1.0 % Absolute Neutrophils 6.20 1.80-8.50 K/uL Absolute Lymphocytes 4.60 (H) 0.60-3.20 K/uL Absolute Monocytes 0.80 0.00-1.00 K/uL Absolute Eosinophils 0.50 (H) 0.00-0.40 K/uL Absolute Basophils 0.30 (H) 0.00-0.10 K/uL ECG 12 lead Result Value Ref Range INTERPRETATION TEXT Not Confirmed IMAGING STUDIES (X-Rays interpreted by ED Physician) Recent imaging: No results found for this or any previous visit (from the past 360 hour(s)). ED COURSE & MEDICAL DECISION MAKING Pertinent Labs & Imaging studies were reviewed along with EMS notes and jail record s if applicable. (See chart for details) Medications and Allergy list reviewed. Nurses note and old records were reviewed Critical Care Note: Based on my physical examination findings, my clinical impression, diagnostic studies and o ther interventions performed while the patient was in the Emergency Department, I have deter mined that this patient has a critical illness that acutely impairs one or more vital organ systems such that there is a high probability of imminent or life threatening deterioration in the patient's condition that could result in or permanent disability. In other wor ds, failure to initiate the actions/interventions listed below on an emergent basis would li bryce result in sudden, clinically significant or life threatening deterioration in the patie nt's condition. I delivered critical care services in my medical care for this critically ill/injured patie nt. This case involved decision making of high complexity to assess, manipulate, and suppor t vital organ systems failing and/or to prevent further life threatening deterioration of th e patient's condition. Examples of vital organ system failure specific to this case include : cardiac failure and possible circulatory failure A brief summary of critical actions undertaken in this case are treatment with Brylinta, tr eatment of pain with nitro glycerin aspirin, treatment of his IV with Ativan, coordination o f care, discussion with consultants, and documentation and directing patient to the flower shop laborer/designer . Please see the ED course for further information on these action. 35 minutes of critical care time was spent including Care as above, Discussion with EMS, Di scussions with Nursing Staff, Review of Test Results, Discussion with Consultatns, Discussio ns with Family and Coordination of care and evaluating, managing, and providing care to this critical as well as time spent in documenting such activitiesas well as bedside one-on-one patient care time. Note that any time involved in the performance of separately reportable procedures was not counted toward critical care time in this case. ER course 11:25 - Patient care initiated. After introducing myself to the patient, I performed a car eful history and physical examination. This is a very anxious 55-year-old male complaining of chest pressure and pain. He clearly is very anxious and is hyperventilating. However the complaint of chest pressure that dana re in nature and has been waxing and waning over the past week with sudden worsening today i s very concerning for a STEMI. The patient will require a full cardiac workup including EKG . He is so anxious at this point however he'll need IV Ativan in order to allow us to even get an EKG. The patient is thrashing around in bed at the moment and not cooperative. This may delay our ability to obtain a clear EKG 11:38. EKG here shows STEMI. Cardiac team has been activated at this time 11:42. [facility] is here at bedside 11:47. Patient has left the ER at this point Last Set of Vital Signs: FINAL IMPRESSION 1. ST elevation myocardial infarction (STEMI) of inferior wall (HCC) 2. Chest pain in adult 3. Diaphoresis 4. Anxiety attack Disposition: Admit Condition: Guarded Current Discharge Medication List Administrations This Visit LORazepam (ATIVAN) injection 2 mg Admin Date Action Dose Route Administered By 11/03/2016 Given 2 mg Intravenous Kierra Bhat RN nitroglycerin (NITROSTAT) SL tablet 0.4 mg Admin Date Action Dose Route Administered By 11/03/2016 Given 0.4 mg Sublingual Kierra Bhat RN Portions of this chart may have been created with [employer] voice recognition software. Occasi onal wrong-word or sound-alike substitutions may have occurred due to the inherent cobos itations of voice recognition software. Please read the chart carefully and recognize, using context, where these substitutions have occurred. Ryan Petersen MD 11/03/16 1148 Ryan Petersen MD 11/03/16 1202 Delbert Jacob RN - 11/03/2016 11:24 AM PDTBed: ED11 Expected date: 11/03/16 Expected time: Means of arrival: ALS Ambulance Comments: Chest pain documented in this en counter Miscellaneous Notes Plan of Care - Brenda Adams RN - 11/05/2016 11:28 AM PDTProblem: Patient Care Overv iew (Adult) Goal: Care Team Goals & Evaluation PROBLEM-RELATED GOALS: 1. Prevent hypoxia by 11/08/16 2. Prevent bronchospasm by 11/08/16 3. Jennifer will have breath sounds will remain consistent with baseline function throughout s cheyanne and reverse airway bronchospasm when indicated. Reevaluate goal by 11/08/16. 4. Jennifer will have his Chest pain managed to a 4 or less through 5 Jennifer and his spouse will have understanding of his dx and tx by 11/05/2016 STRATEGY TO ACHIEVE GOALS: - Oxygen to keep saturation >92% - Aerosolized medications as ordered - Perform airway clearance using vibratory PEP therapy. Assess chest pain and treat with medications, oxygen, rest, re-assess for effect. ECG for s uspected angina. 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 RESTRAINT-RELATED GOALS: STRATEGIES TO ACHIEVE RESTRAINT GOALS: Outcome: Goal Achieved Date Met: 11/05/16 Goal Evaluation: All goals achieved - medications reviewed and plan is understood an d financial arrangements have been made - has plan to stop smoking - he has quit in the past lan of Care - Elin Ramirez RN - 11/05/2016 6:25 AM PDTProblem: Patient Care Overview (Adult) Goal: Care Team Goals & Evaluation PROBLEM-RELATED GOALS: 1. Prevent hypoxia by 11/08/16 2. Prevent bronchospasm by 11/08/16 3. Jennifer will have breath sounds will remain consistent with baseline function throughout s cheyanne and reverse airway bronchospasm when indicated. Reevaluate goal by 11/08/16. 4. Jennifer will have his Chest pain managed to a 4 or less through 5 Jennifer and his spouse will have understanding of his dx and tx by 11/05/2016 STRATEGY TO ACHIEVE GOALS: - Oxygen to keep saturation >92% - Aerosolized medications as ordered - Perform airway clearance using vibratory PEP therapy. Assess chest pain and treat with medications, oxygen, rest, re-assess for effect. ECG for s uspected angina. 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 RESTRAINT-RELATED GOALS: STRATEGIES TO ACHIEVE RESTRAINT GOALS: Outcome: Improving Goal Evaluation: Stable overnight, denied pain. lan of Care - Vicenta Hoff RN - 11/04/2016 6:08 PM PDTProblem: Patient Care Overview (Adult) Goal: Care Team Goals & Evaluation PROBLEM-RELATED GOALS: 1. Prevent hypoxia by 11/08/16 2. Prevent bronchospasm by 11/08/16 3. Jennifer will have breath sounds will remain consistent with baseline function throughout s cheyanne and reverse airway bronchospasm when indicated. Reevaluate goal by 11/08/16. 4. Jennifer will have his Chest pain managed to a 4 or less through 5 Jennifer and his spouse will have understanding of his dx and tx by 11/05/2016 STRATEGY TO ACHIEVE GOALS: - Oxygen to keep saturation >92% - Aerosolized medications as ordered - Perform airway clearance using vibratory PEP therapy. Assess chest pain and treat with medications, oxygen, rest, re-assess for effect. ECG for s uspected angina. 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 RESTRAINT-RELATED GOALS: STRATEGIES TO ACHIEVE RESTRAINT GOALS: Outcome: Improving Goal Evaluation: Jennifer has been feeling better and better as the day progressed. Chest pain has subsided a nd he has been able to walk in the [place]. He did have some mild SOB, which he said is baseli ne for him, since he has COPD and is on home O2. O2 sats have been in the mid 90's. Breath sounds were very wheezy this morning and now are just diminished posteriorly. laborer prestressed concrete cam e and did the flower shop laborer/designer education and the project Red heart attack education was completed. lan of Care - Damaris Mendiola RRT - 11/04/2016 3:16 PM PDTFormatting of this note might be different from e original. Problem: Patient Care Overview (Adult) Goal: Care Team Goals & Evaluation PROBLEM-RELATED GOALS: 1. Prevent hypoxia by 11/08/16 2. Prevent bronchospasm by 11/08/16 3. Jennifer will have breath sounds will remain consistent with baseline function throughout s cheyanne and reverse airway bronchospasm when indicated. Reevaluate goal by 11/08/16. STRATEGY TO ACHIEVE GOALS: - Oxygen to keep saturation >92% - Aerosolized medications as ordered - Perform airway clearance using vibratory PEP therapy. RESTRAINT-RELATED GOALS: STRATEGIES TO ACHIEVE RESTRAINT GOALS: Outcome: Improving Goal Evaluation: Severity Score 9 Class 3 SpO2 95 % on nasal cannula at flow rate 2L/min. Breath soun ds have wheezes throughout with clearing after treatments. Treatments given as ordered. Wi ll continue current regimen. Severity Score 0-4 ITEM 0 1 2 3 4 1 Respiratory History No Smoking history Current tobacco use Up to 10 Pack year history. Simple home regimen Known Pulmonary Disease 20 pack year history Complex Home regimen 30+ pack year history Severe Pulmonary Disease or exacerbation 2 Surgery Status (current admission) No surgery Minor surgery Lower abdominal rib fractures Thoracic or uppe r abdominal Thoracic with pulmonary disease or Central Nervous System 1 Chest X-RAY Clear or Normal baseline Unavailable Improving/clearing Abnormal, Unilateral or mild Infiltrates or atelectasis, Chronic changes Infiltrates mild bilateral or unilateral or pleural effusions extensive Inf iltrates, atelectasis or pleural effusions, pneumothorax 1 Respiratory Pattern Regular pattern Respiratory Rate:8-20 Increased Respiratory Rate, labored Dyspnea on exertion, irregular pattern Use of accessory muscles, prolonged expirato ry phase nasal flaring Severe Dyspnea , Purse Lip Breathing, Use of accessory muscles 3 Breath Sounds Clear Diminished unilaterally Diminished bilaterally &/or crackles Wheezing or Rhonchi &/or absent unilateral Absent bilaterally 0 Cough Strong, non productive Moderate, loose, productive Weak, non-productive Weak, ineffective Non-spontaneous or may require suctioning 0 Sputum None Scant / Thin White/clear Moderate Beige/ yellow Large / Thick Dark Green/Brown Copious / Plugs Hemoptysis dawson 0 LOC Alert, oriented, cooperative Disoriented, follows commands Obtunded, arousable, follo ws commands Obtunded, uncooperative, sedated Comatose 1 Oxygen Demand Room air Baseline 1-2 liters 3-6 liters >7 Liters Oxymizer to > 55% 60% or greater Total Severity Score (SS) Class 0-3 1 4-7 2 8-11 3 12-14 4 15+ 5 lan of Care - [facility] Ifeoma miller RN - 11/04/2016 1:06 PM PDTProblem: Discharge Planning Goal: Patient will be discharged in a safe manner Outcome: Improving Met with Jennifer to discuss discharge plans, he expresses feeling much better today. He reports he lives with his in a one level home with three steps to enter. He is independent with his ADL's, he does not use any DME or CPAP at home. He is on 2L/O2 continuously, he gets this through [employer]. His P[place] is Dr. Gomez at the [place] and he also uses [place]. He declines HH services at this time, he states he will be fine. His family will transport him when he is medically stable for discharge. Electronically signed by: Ifeoma Teran RN 11/04/2016 13:06 Called the [place] pharmacy per Brianda flower shop laborer/designer RN, to inquire about insurance coverage for Bril inta 90 mg BID. This CM was told that there is criteria to meet that the provider has to fi ll out in order to process the Rx. They request to fax over the Rx and they can work on it, but they cannot say whether it will be covered or not. This information was relayed to Mana hoskins. Electronically signed by: Ifeoma Teran RN 11/04/2016 15:58 lan of Care - Guanako Walters Ba, Chaplain - 11/04/2016 11:00 AM PDTProblem: Patient Care Overview (Adult) Goal: Care Team Goals & Evaluation PROBLEM-RELATED GOALS: 1. Prevent hypoxia by 11/08/16 2. Prevent bronchospasm by 11/08/16 3. Jennifer will have breath sounds will remain consistent with baseline function throughout s cheyanne and reverse airway bronchospasm when indicated. Reevaluate goal by 11/08/16. STRATEGY TO ACHIEVE GOALS: - Oxygen to keep saturation >92% - Aerosolized medications as ordered - Perform airway clearance using vibratory PEP therapy. RESTRAINT-RELATED GOALS: STRATEGIES TO ACHIEVE RESTRAINT GOALS: Spiritual Care Jennifer Maldonado is a 55 y.o. male who is admitted for Diaphoresis [R61] Anxiety attack [F41.0] ST elevation myocardial infarction (STEMI) of inferior wall (HCC) [I21.19] Chest pain in adult [R07.9] This is my first visit with the patient. Jennifer Maldonado was awake, alert, sitting in a chair at bedside at the time of the visit. Spiritual Evaluation: Patient attends [employer] [facility] in [place]. He is very enthusiastic in his carlos and sees his circumstances as a part of his relationsh ip with God. Spiritual Interventions: Engaged in social and spiritual conversation; active listening and pastoral support was pro vided. Prayer was offered. Spiritual Outcomes: Patient engaged actively, shared openly, welcomed prayer and expressed appreciation for the visit. Spiritual Goals/Followup: Will see the patient as requested. If there are any other spiritual care issues that arise, please contact lead inspector. lan of Antione newton - Elin Ramirez RN - 11/04/2016 6:36 AM PDTProblem: Patient Care Overview (Adult) Goal: Care Team Goals & Evaluation PROBLEM-RELATED GOALS: 1. Prevent hypoxia by 11/08/16 2. Prevent bronchospasm by 11/08/16 3. Jennifer will have breath sounds will remain consistent with baseline function throughout s cheyanne and reverse airway bronchospasm when indicated. Reevaluate goal by 11/08/16. STRATEGY TO ACHIEVE GOALS: - Oxygen to keep saturation >92% - Aerosolized medications as ordered - Perform airway clearance using vibratory PEP therapy. RESTRAINT-RELATED GOALS: STRATEGIES TO ACHIEVE RESTRAINT GOALS: Outcome: Improving Goal Evaluation: Much improved pain overnight- currently rates pain at 3 "I can hand le that"- slept with ativan doses, all access sites stable.calm and cooperative this AM. lan of Care - Leslie Dumont RRT - 11/04/2016 5:02 AM PDT Problem: Patient Care Overview (Adult) Goal: Care Team Goals & Evaluation PROBLEM-RELATED GOALS: 1. Prevent hypoxia by 11/08/16 2. Prevent bronchospasm by 11/08/16 3. Jennifer will have breath sounds will remain consistent with baseline function throughout s cheyan[place] and reverse airway bronchospasm when indicated. Reevaluate goal by 11/08/16. STRATEGY TO ACHIEVE GOALS: - Oxygen to keep saturation >92% - Aerosolized medications as ordered - Perform airway clearance using vibratory PEP therapy. RESTRAINT-RELATED GOALS: STRATEGIES TO ACHIEVE RESTRAINT GOALS: Outcome: Improving Goal Evaluation: Jennifer is a current smoker. His breath sounds are tight with expiratory wheezes throughout. His sputum is dark green with flecks of brown in it. He is interested in quitting smoking a nd would be very receptive to some literature. He could probably stand to increase the frequ ency of his treatments, or utilize his prns in between. Electronically signed by: Leslie ornelas RRT 11/04/2016 5:02 Severity Score 12 Class 4 Severity Score 0-4 ITEM 0 1 2 3 4 2 Respiratory History No Smoking history Current tobacco use Up to 10 Pack year history. Simple home regimen Known Pulmonary Disease 20 pack year history Complex Home regimen 30+ pack year history Severe Pulmonary Disease or exacerbation 1 Surgery Status (current admission) No surgery Minor surgery Lower abdominal rib fractures Thoracic or uppe r abdominal Thoracic with pulmonary disease or Central Nervous System 1 Chest X-RAY Clear or Normal baseline Unavailable Improving/clearing Abnormal, Unilateral or mild Infiltrates or atelectasis, Chronic changes Infiltrates mild bilateral or unilateral or pleural effusions extensive Inf iltrates, atelectasis or pleural effusions, pneumothorax 0 Respiratory Pattern Regular pattern Respiratory Rate:8-20 Increased Respiratory Rate, labored Dyspnea on exertion, irregular pattern Use of accessory muscles, prolonged expirato ry phase nasal flaring Severe Dyspnea , Purse Lip Breathing, Use of accessory muscles 3 Breath Sounds Clear Diminished unilaterally Diminished bilaterally &/or crackles Wheezing or Rhonchi &/or absent unilateral Absent bilaterally 1 Cough Strong, non productive Moderate, loose, productive Weak, non-productive Weak, ineffective Non-spontaneous or may require suctioning 3 Sputum None Scant / Thin White/clear Moderate Beige/ yellow Large / Thick Dark Green/Brown Copious / Plugs Hemoptysis dawson 0 LOC Alert, oriented, cooperative Disoriented, follows commands Obtunded, arousable, follo ws commands Obtunded, uncooperative, sedated Comatose 1 Oxygen Demand Room air Baseline 1-2 liters 3-6 liters >7 Liters Oxymizer to > 55% 60% or greater Total Severity Score (SS) Class 0-3 1 4-7 2 8-11 3 12-14 4 15+ 5 eICU Jay Jay - Elin Ramirez RN - 11/03/2016 11:19 PM PDTHas had ongoing c/o sharp chest pain across ant ch est despite max doses pain meds and then escalated to dilaudid with minimal if any improvem ent- Dr Gallardo notified, addt orders. Dr Gallardo in to see pt- see orders. addt dose of a tivan, melatonin,colchicine given- magnesium rider infusing. Encouraged to relax and rest- c urrently rates pain at ~ 6 -"I do feel much better and my breathing has eased". Cont to renee tor both groins and r wrist access sites. All extremity pulses 2+. lan of Care - Marisol Lombardi TURNING SANDER TENDER - 017 4:56 PM PDT Problem: Patient Care Overview (Adult) Goal: Care Team Goals & Evaluation PROBLEM-RELATED GOALS: Prevent hypoxia by 11/08/16 Prevent bronchospasm by 11/08/16 STRATEGY TO ACHIEVE GOALS: Oxygen to keep saturation >90% Aerosolized medications as ordered RESTRAINT-RELATED GOALS: STRATEGIES TO ACHIEVE RESTRAINT GOALS: Goal Evaluation: Severity Score Class Severity Score 0-4 ITEM 0 1 2 3 4 2 Respiratory History No Smoking history Current tobacco use Up to 10 Pack year history. Simple home regimen Known Pulmonary Disease 20 pack year history Complex Home regimen 30+ pack year history Severe Pulmonary Disease or exacerbation 1 Surgery Status (current admission) No surgery Minor surgery Lower abdominal rib fractures Thoracic or uppe r abdominal Thoracic with pulmonary disease or Central Nervous System 1 Chest X-RAY Clear or Normal baseline Unavailable Improving/clearing Abnormal, Unilateral or mild Infiltrates or atelectasis, Chronic changes Infiltrates mild bilateral or unilateral or pleural effusions extensive Inf iltrates, atelectasis or pleural effusions, pneumothorax 0 Respiratory Pattern Regular pattern Respiratory Rate:8-20 Increased Respiratory Rate, labored Dyspnea on exertion, irregular pattern Use of accessory muscles, prolonged expirato ry phase nasal flaring Severe Dyspnea , Purse Lip Breathing, Use of accessory muscles 0 Breath Sounds Clear Diminished unilaterally Diminished bilaterally &/or crackles Wheezing or Rhonchi &/or absent unilateral Absent bilaterally 0 Cough Strong, non productive Moderate, loose, productive Weak, non-productive Weak, ineffective Non-spontaneous or may require suctioning 0 Sputum None Scant / Thin White/clear Moderate Beige/ yellow Large / Thick Dark Green/Brown Copious / Plugs Hemoptysis dawson 0 LOC Alert, oriented, cooperative Disoriented, follows commands Obtunded, arousable, follo ws commands Obtunded, uncooperative, sedated Comatose 3 Oxygen Demand Room air Baseline 1-2 liters 3-6 liters >7 Liters Oxymizer to > 55% 60% or greater Total Severity Score (SS) Class 0-3 1 4-7 2 8-11 3 12-14 4 15+ 5 software engineer developer score 7 Admitted with STEMI Home regimen includes advair, atrovent, xopenex, and oxygen around the clock Pt is on 3 L/min nasal cannula with a SpO2 of 97 % and a heart rate of 97. Breath sounds ar e clear. Pt has a good, productive cough. Pt has a unlabored, pattern regular, depth regular , no shortness of breath reported. Current smoker, history asthma, copd, emphysema Orders per protocol D Triage Notes - Kierra Bhat, RADHA - 11/03/2016 11:45 AM PDTPt sent from [place] with severe chest pain, st arting approx half hour ago 11 :52 AM PDTdocumented in this encounter Plan of [...] | + +--------+ + + + | EXTRA JEANNETTE ZIEGLER | Routin | 11/05/2016 | | Results for this | | TUBE | e | 6:43 AM | | procedure are in the | | | | PDT | | results section. | + +--------+ + + + | ECG 12 LEAD | Routin | 11/05/2016 | | Results for this | | | e | 6:33 AM | | procedure are in the | | | | PDT | | results section. | + +--------+ + + + | CK TOTAL | Routin | 11/05/2016 | | Results for this | | | e | 6:29 AM | | procedure are in the | | | | PDT | | results section. | + +--------+ + + + | ECHO COMPLETE | Routin | 11/04/2016 | | Results for this | | | e | 8:50 AM | | procedure are in the | | | | PDT | | results section. | + +--------+ + + + | ECG 12 LEAD | Routin | 11/04/2016 | | Results for this | | | e | 5:31 AM | | procedure are in the | | | | PDT | | results section. | + +--------+ + + + | LIPID PANEL | Routin | 11/04/2016 | | Results for this | | | e | 4:31 AM | | procedure are in the | | | | PDT | | results section. | + +--------+ + + + | MAGNESIUM | Routin | 11/04/2016 | | Results for this | | | e | 4:31 AM | | procedure are in the | | | | PDT | | results section. | + +--------+ + + + | CK TOTAL | Routin | 11/04/2016 | | Results for this | | | e | 4:31 AM | | procedure are in the | | | | PDT | | results section. | + +--------+ + + + | BASIC METABOLIC | Routin | 11/04/2016 | | Results for this | | PANEL | e | 4:31 AM | | procedure are in the | | | | PDT | | results section. | + +--------+ + + + | CULTURE, MRSA | Routin | 11/04/2016 | | Results for this | | | e | 12:56 AM | | procedure are in the | | | | PDT | | results section. | + +--------+ + + + | C-REACTIVE PROTEIN | Routin | 11/03/2016 | | Results for this | | | e | 10:49 PM | | procedure are in the | | | | PDT | | results section. | + +--------+ + + + | POTASSIUM | STAT | 11/03/2016 | | Results for this | | | | 10:49 PM | | procedure are in the | | | | PDT | | results section. | + +--------+ + + + | ECG 12 LEAD | Routin | 11/03/2016 | | Results for this | | | e | 9:52 PM | | procedure are in the | | | | PDT | | results section. | + +--------+ + + + | POC ACTIVATED | Routin | 11/03/2016 | | Results for this | | CLOTTING TIME ISTAT | e | 4:38 PM | | procedure are in the | | | | PDT | | results section. | + +--------+ + + + | ECG 12 LEAD | STAT | 11/03/2016 | | Results for this | | | | 3:51 PM | | procedure are in the | | | | PDT | | results section. | + +--------+ + + + | CV CARDIAC PROCEDURE | Routin | 11/03/2016 | | Results for this | | | e | 3:02 PM | | procedure are in the | | | | PDT | | results section. | + +--------+ + + + | POC ACTIVATED | Routin | 11/03/2016 | | Results for this | | CLOTTING TIME ISTAT | e | 2:13 PM | | procedure are in the | | | | PDT | | results section. | + +--------+ + + + | POC ACTIVATED | Routin | 11/03/2016 | | Results for this | | CLOTTING TIME ISTAT | e | 2:00 PM | | procedure are in the | | | | PDT | | results section. | + +--------+ + + + | POC ACTIVATED | Routin | 11/03/2016 | | Results for this | | CLOTTING TIME ISTAT | e | 1:34 PM | | procedure are in the | | | | PDT | | results section. | + +--------+ + + + | COMPREHENSIVE | STAT | 11/03/2016 | | Results for this | | METABOLIC PANEL | | 12:30 PM | | procedure are in the | | | | PDT | | results section. | + +--------+ + + + | POC BLOOD GASES | Routin | 11/03/2016 | | Results for this | | | e | 12:04 PM | | procedure are in the | | | | PDT | | results section. | + +--------+ + + + | ECG 12 LEAD | STAT | 11/03/2016 | | Results for this | | | | 11:38 AM | | procedure are in the | | | | PDT | | results section. | + +--------+ + + + | CBC W/AUTO | STAT | 11/03/2016 | | Results for this | | DIFFERENTIAL | | 11:34 AM | | procedure are in the | | | | PDT | | results section. | + +--------+ + + + | TROPONIN I | STAT | 11/03/2016 | | Results for this | | | | 11:34 AM | | procedure are in the | | | | PDT | | results section. | + +--------+ + + + | PROTIME INR | STAT | 11/03/2016 | | Results for this | | | | 11:34 AM | | procedure are in the | | | | PDT | | results section. | + +--------+ + + + documented in this encounter Results Extra Lavender Top Tube (11/05/2016 6:43 AM PDT) + +-------+ + + + | Component | Value | Ref Range | Performed | Pathologist | | | | | At | Signature | + +-------+ + + + | Extra | Done | | [facility] | | | Lavender | | | [facility] | | | Top Tube | | | [facility] | | | [...] ST. | [address] | [place] | [phone] | | [facility] | | [id number] | | | - LABORATORY | | | | + + + + + ECG 12 lead (11/05/2016 6:33 AM PDT) + + + + + + | Component | Value | Ref Range | Performed | Pathologist | | | | | At | Signature | + + + + + + | VENTRICULAR | 89 | BPM | [facility] | | | RATE EKG | | | | | + + + + + + | ATRIAL RATE | 89 | BPM | [facility] | | + + + + + + | P-R | 138 | ms | [facility] | | | INTERVAL | | | | | + + + + + + | QRS | 96 | ms | [facility] | | | DURATION | | | | | + + + + + + | Q-T | 390 | ms | [facility] | | | INTERVAL | | | | | + + + + + + | Q-T | 474 | ms | [facility] | | | INTERVAL | | | | | | (CORRECTED) | | | | | + + + + + + | P WAVE AXIS | 77 | degrees | [facility] | | + + + + + + | QRS AXIS | -10 | degrees | [facility] | | + + + + + + | T AXIS | -36 | degrees | [facility] | | + + + + + + | INTERPRETAT | Sinus rhythm with | | [facility] | | | ION TEXT | occasional premature | | | | | | ventricular complexes | | | | | | and fusion | | | | | | complexesincomplete | | | | | | RBBBPoor data | | | | | | qualityPossible Left | | | | | | atrial | | | | | | enlargementInferior | | | | | | infarct , age | | | | | | undeterminedAbnormal | | | | | | ECGWhen compared with | | | | | | ECG of 04-NOV-2016 | | | | | | 05:31,premature | | | | | | ventricular complexes | | | | | | are now presentT wave | | | | | | inversion now evident in | | | | | | Inferior leadsConfirmed | | | | | | by LATONIA GALLARDO MD | | | | | | ([id number]) on 11/05/2016 | | | | | | 11:06:35 AM | | | | + + + [...] | | | + +---------+ + + CK Total (11/05/2016 6:29 AM PDT) + +---------+ + + + | Component | Value | Ref Range | Performed | Pathologist | | | | | At | Signature | + +---------+ + + + | CK TOTAL | 376 (H) | 22 - 269 U/L | [facility] | | | | | [facility] | | | | | | [facility] - | | | | | | LABORATORY | | + +---------+ + + + + + | Specimen | + + | Blood | + + + + + + + | Performing | Address | City/State/Zipcode | Phone Number | | Organization | | | | + + + + + | [facility] | [address] | [place] | [phone] | | [facility] | | [address] | | | - LABORATORY | | | | + + + + + ECHO Complete (11/04/2016 8:50 AM PDT) + +-------+ + + + | Component | Value | Ref Range | Performed | Pathologist | | | | | At | Signature | + +-------+ + + + | LVEF-TTE | 61 | | | | | TRANSTHORAC | | | | | | IC ECHO | | | | | + +-------+ + + + + + | Specimen | + + | | + + + +-- + | Narrative | P erformed At | + +-- + | Transthoracic | | | Echocardiography Report (TTE) Demographics Patient Name ERICA | | | JENNIFER Room Number 452 | | | BILL Patient Number [id number] Date of Study | | | 11/04/2016 Visit Number [id number] | | | Referring Physician LATONIA GALLARDO MD Number Date of | | | 1960 Digital Solutions Architect PALAK | | | [place], | | | [place] Age 55 year(s) | | | Interpreting LATONIA GALLARDO MD | | | Algebraist Gender Male | | | Nurse | | | Stress Development Geologist Procedure Type of Study TTE procedure: ECHO | | | Complete. Procedure dateDate: 11/04/2016Start: 08:12 AM Technical | | | Quality: Adequate visualizationStudy Location: ICU Patient Status: | | | RoutineHeight: 74 inchesWeight: 232 poundsBSA: 2.31 m^2BMI: 29.79 | | | kg/m^2 ConclusionsSummaryLeft ventricle is normal in size and | | | function. Ejection fraction isestimated at 61%.Normal Left Ventricular | | | contractility was noted.Structurally normal mitral valve without | | | significant stenosis orregurgitation.Aortic valve is trileaflet | | | without significant stenosis or regurgitation.Structurally normal | | | tricuspid valve without significant stenosis orregurgitation.No | | | evidence of pericardial effusion. | | | Signature | | | | | | PM | | | -------- FindingsMitral ValveStructurally normal mitral valve without | | | significant stenosis orregurgitation.Aortic ValveAortic valve is | | | trileaflet without significant stenosis or regurgitation.Tricuspid | | | ValveStructurally normal tricuspid valve without significant stenosis | | | orregurgitation.Pulmonic ValveThe pulmonic valve was not well | | | visualized.Left AtriumMild left atrial enlargement.Left VentricleLeft | | | ventricle is normal in size and function. Ejection fraction | | | isestimated at 61%.Right AtriumNormal right atrium.Right | | | VentricleNormal right ventricular structure and function.Pericardial | | | EffusionNo evidence of pericardial effusion. MiscellaneousNormal | | | aortic root.The IVC appears normal.IVC respiratory change in dimension | | | > 50%. Valves Mitral Valve Peak E-Wave: 0.53 m/s Peak A-Wave: 0.72 | | | m/s Tissue Doppler Septal e' Velocity: 0.11 m/s Septal E/e' | | | Ratio:4.95 Aortic Valve Mean Gradient: 3.89 mmHg LVOT Peak | | | Velocity: 1.29 m/s Structures Left Atrium LA A/P Dimension: 3.6 cm | | | LA Area: 22.66 cm^2 LA Vol/BSA Index: | | | 27 mL/m^2 LA Volume: 61.26 ml | | | EF | | | [id number]% Left Ventricle Diastolic Dimension: 5.44 cm | | | Systolic Dimension: 3.95 cm Septum Diastolic: 1.07 cm PW Diastolic: | | | 0.92 cm EF Calculated: 61% Miscellaneous Aorta Aortic Root: 3.52 cm | | | Ascending Aorta: 3.09 cm | | | | | |Signature | | | | | | Electronically signed by LATONIA GALLARDO MD(Interpreting physician) on | | | 11/04/2016 05:33 PM | | | | | | | | |Findings | | |Mitral Valve | | |Structurally normal mitral valve without significant stenosis or | | |regurgitation. | | |Aortic Valve | | |Aortic valve is trileaflet without significant stenosis or regurgitation. | | |Tricuspid Valve | | |Structurally normal tricuspid valve without significant stenosis or | | |regurgitation. | | |Pulmonic Valve | | |The pulmonic valve was not well visualized. | | |Left Atrium | | |Mild left atrial enlargement. | | |Left Ventricle | | |Left ventricle is normal in size and function. Ejection fraction is | | |estimated at 61%. | | |Right Atrium | | |Normal right atrium. | | |Right Ventricle | | |Normal right ventricular structure and function. | | |Pericardial Effusion | | |No evidence of pericardial effusion. | | | | | |Miscellaneous | | |Normal aortic root. | | |The IVC appears normal. | | |IVC respiratory change in dimension > 50%. | | | | | |Valves | | | | | | Mitral Valve | | | | | | Peak E-Wave: 0.53 m/s | | | Peak A-Wave: 0.72 m/s | | | | | | Tissue Doppler | | | | | | Septal e' Velocity: 0.11 m/s | | | Septal E/e' Ratio:4.95 | | | | | | Aortic Valve | | | | | | Mean Gradient: 3.89 mmHg | | | | | | LVOT | | | | | | Peak Velocity: 1.29 m/s | | | | | |Structures | | | | | | Left Atrium | | | | | | LA A/P Dimension: 3.6 cm LA Area: 22.66 cm^2 | | | LA Vol/BSA Index: 27 mL/m^2 LA Volume: 61.26 ml | | | EF [id number]% | | | | | | Left Ventricle | | | | | | Diastolic Dimension: 5.44 cm Systolic Dimension: 3.95 cm | | | Septum Diastolic: 1.07 cm | | | PW Diastolic: 0.92 cm | | | EF Calculated: 61% | | | | | | Miscellaneous | | | | | | Aorta | | | | | | Aortic Root: 3.52 cm | | | Ascending Aorta: 3.09 cm | | | | | + +-- + + + | Procedure Note | + + | [facility], Rad Results In - 11/04/2016 5:34 PM PDT Transthoracic Echocardiography Report | | (TTE) Demographics Patient Name ERICA [place] Room Number 452 | | BILL Patient Number [id number] Date of Study 11/04/2016 Visit Number | | [id number] Referring Physician LATONIA GALLARDO MD | | Number Date of 1960 Digital Solutions Architect PALAK SANTANA, | | [place] Age 55 year(s) | | Interpreting LATONIA GALLARDO MD Algebraist | | Gender Male Nurse Stress | | TechnicianProcedureType of Study TTE procedure: ECHO Complete.Procedure dateDate: | | 11/04/2016Start: 08:12 AMTechnical Quality: Adequate visualizationStudy Location: | | ICUPatient Status: RoutineHeight: 74 inchesWeight: 232 poundsBSA: 2.31 m^2BMI: 29.79 | | kg/m^2ConclusionsSummaryLeft ventricle is normal in size and function. Ejection fraction | | isestimated at 61%.Normal Left Ventricular contractility was noted.Structurally normal | | mitral valve without significant stenosis orregurgitation.Aortic valve is trileaflet | | without significant stenosis or regurgitation.Structurally normal tricuspid valve | | without significant stenosis orregurgitation.No evidence of pericardial | | effusion.Signature | | ------ | | 05:33 | | PM FindingsMi | | tral ValveStructurally normal mitral valve without significant stenosis | | orregurgitation.Aortic ValveAortic valve is trileaflet without significant stenosis or | | regurgitation.Tricuspid ValveStructurally normal tricuspid valve without significant | | stenosis orregurgitation.Pulmonic ValveThe pulmonic valve was not well visualized.Left | | AtriumMild left atrial enlargement.Left VentricleLeft ventricle is normal in size and | | function. Ejection fraction isestimated at 61%.Right AtriumNormal right atrium.Right | | VentricleNormal right ventricular structure and function.Pericardial EffusionNo evidence | | of pericardial effusion.MiscellaneousNormal aortic root.The IVC appears normal.IVC | | respiratory change in dimension > 50%.Valves Mitral Valve Peak E-Wave: 0.53 m/s Peak | | A-Wave: 0.72 m/s Tissue Doppler Septal e' Velocity: 0.11 m/s Septal E/e' Ratio:4.95 | | Aortic Valve Mean Gradient: 3.89 mmHg LVOT Peak Velocity: 1.29 m/sStructures Left | | Atrium LA A/P Dimension: 3.6 cm LA Area: 22.66 cm^2 LA Vol/BSA | | Index: 27 mL/m^2 LA Volume: 61.26 ml | | EF [id number]% Left Ventricle Diastolic Dimension: 5.44 cm | | Systolic Dimension: 3.95 cm Septum Diastolic: 1.07 cm PW Diastolic: 0.92 cm EF | | Calculated: 61% Miscellaneous Aorta Aortic Root: 3.52 cm Ascending Aorta: 3.09 cm | |Height: 74 inchesWeight: 232 poundsBSA: 2.31 m^2BMI: 29.79 kg/m^2 | | | |Conclusions | |Summary | |Left ventricle is normal in size and function. Ejection fraction is | |estimated at 61%. | |Normal Left Ventricular contractility was noted. | |Structurally normal mitral valve without significant stenosis or | |regurgitation. | |Aortic valve is trileaflet without significant stenosis or regurgitation. | |Structurally normal tricuspid valve without significant stenosis or | |regurgitation. | |No evidence of pericardial effusion. | | | |Signature | | | | Electronically signed by LATONIA GALLARDO MD(Interpreting physician) on | | 11/04/2016 05:33 PM | | | | | |Findings | |Mitral Valve | |Structurally normal mitral valve without significant stenosis or | |regurgitation. | |Aortic Valve | |Aortic valve is trileaflet without significant stenosis or regurgitation. | |Tricuspid Valve | |Structurally normal tricuspid valve without significant stenosis or | |regurgitation. | |Pulmonic Valve | |The pulmonic valve was not well visualized. | |Left Atrium | |Mild left atrial enlargement. | |Left Ventricle | |Left ventricle is normal in size and function. Ejection fraction is | |estimated at 61%. | |Right Atrium | |Normal right atrium. | |Right Ventricle | |Normal right ventricular structure and function. | |Pericardial Effusion | |No evidence of pericardial effusion. | | | |Miscellaneous | |Normal aortic root. | |The IVC appears normal. | |IVC respiratory change in dimension > 50%. | | | |Valves | | | | Mitral Valve | | | | Peak E-Wave: 0.53 m/s | | Peak A-Wave: 0.72 m/s | | | | Tissue Doppler | | | | Septal e' Velocity: 0.11 m/s | | Septal E/e' Ratio:4.95 | | | | Aortic Valve | | | | Mean Gradient: 3.89 mmHg | | | | LVOT | | | | Peak Velocity: 1.29 m/s | | | |Structures | | | | Left Atrium | | | | LA A/P Dimension: 3.6 cm LA Area: 22.66 cm^2 | | LA Vol/BSA Index: 27 mL/m^2 LA Volume: 61.26 ml | | EF Loovgovwl48% | | | | Left Ventricle | | | | Diastolic Dimension: 5.44 cm Systolic Dimension: 3.95 cm | | Septum Diastolic: 1.07 cm | | PW Diastolic: 0.92 cm | | EF Calculated: 61% | | | | Miscellaneous | | | | Aorta | | | | Aortic Root: 3.52 cm | | Ascending Aorta: 3.09 cm | + + ECG 12 lead (11/04/2016 5:31 AM PDT) + + + + + + | Component | Value | Ref Range | Performed | Pathologist | | | | | At | Signature | + + + + + + | VENTRICULAR | 82 | BPM | [facility] | | | RATE EKG | | | | | + + + + + + | ATRIAL RATE | 82 | BPM | [facility] | | + + + + + + | P-R | 138 | ms | [facility] | | | INTERVAL | | | | | + + + + + + | QRS | 98 | ms | [facility] | | | DURATION | | | | | + + + + + + | Q-T | 392 | ms | [facility] | | | INTERVAL | | | | | + + + + + + | Q-T | 457 | ms | [facility] | | | INTERVAL | | | | | | (CORRECTED) | | | | | + + + + + + | P WAVE AXIS | 69 | degrees | [facility] | | + + + + + + | QRS AXIS | 5 | degrees | [facility] | | + + + + + + | T AXIS | 46 | degrees | [facility] | | + + + + + + | INTERPRETAT | Normal sinus rhythmST | | [facility] | | | ION TEXT | elevation, consider | | | | | | early repolarization, | | | | | | pericarditis, or | | | | | | injuryAbnormal ECGWhen | | | | | | compared with ECG of | | | | | | 03-NOV-2016 21:52, | | | | | | (Unconfirmed)Sinus | | | | | | rhythm has replaced | | | | | | Ectopic atrial | | | | | | rhythmNonspecific T wave | | | | | | abnormality no longer | | | | | | evident in Lateral | | | | | | leadsST segments have | | | | | | normalized in I and | | | | | | aVLConfirmed by SUKHJINDER | | | | | | ANA WESTBROOK ([id number]) on | | | | | | 11/04/2016 6:34:24 AM | | | | + + + [...] | | | + +---------+ + + Basic Metabolic Panel (11/04/2016 4:31 AM PDT) + + + + + + | Component | Value | Ref Range | Performed | Pathologist | | | | | At | Signature | + + + + + + | Na | 141 | 136 - 149 | [facility] | | | | | mmol/L | [facility] | | | | | | MEDICAL | | | | | | CENTER - | | | | | | LABORATORY | | + + + + + + | K | 4.1 | 3.5 - 5.1 | [facility] | | | | | mmol/L | [facility] | | | | | | MEDICAL | | | | | | CENTER - | | | | | | LABORATORY | | + + + + + + | Cl | 109 | 98 - 109 mmol/L | [facility] | | | | | | [facility] | | | | | | MEDICAL | | | | | | CENTER - | | | | | | LABORATORY | | + + + + + + | CO2 | 25 | 24 - 31 mmol/L | [facility] | | | | | | [facility] | | | | | | MEDICAL | | | | | | CENTER - | | | | | | LABORATORY | | + + + + + + | Anion Gap | 7 | 3 - 16 mmol/L | [facility] | | | | | | [facility] | | | | | | MEDICAL | | | | | | CENTER - | | | | | | LABORATORY | | + + + + + + | Glucose | 121 (H) | 70 - 109 mg/dL | [facility] | | | | | | [facility] | | | | | | MEDICAL | | | | | | CENTER - | | | | | | LABORATORY | | + + + + + + | BUN | 12 | 7 - 18 mg/dL | [facility] | | | | | | [facility] | | | | | | MEDICAL | | | | | | CENTER - | | | | | | LABORATORY | | + + + + + + | Creatinine | 0.81 | 0.60 - 1.30 | [facility] | | | | | mg/dL | [facility] | | | | | | MEDICAL | | | | | | CENTER - | | | | | | LABORATORY | | + + + + + + | eGFR, | >60Comment: GLOMERULAR | >=60 | [facility] | | | non- | FILTRATION | mL/min/1.73m2 | [facility] | | | [place] | RATE,ESTIMATED | | MEDICAL | | | | mL/min/1.05f7Zpaa than | | CENTER - | | [...] + + + + | Calcium | 9.0 | 8.3 - 10.5 | [facility] | | | | | mg/dL | [facility] | | | | | | MEDICAL | | | | | | CENTER - | | | | | | LABORATORY | | + + + + + + | BUN/Creatin | 14.8 | | [facility] | | | ine Ratio | | | [facility] | | [...] | + + + + + | [facility] | [address] | [place] | [phone] | | [facility] | | [address] | | | - LABORATORY | | | | + + + + + Lipid Panel (11/04/2016 4:31 AM PDT) + + + + + + | Component | Value | Ref Range | Performed | Pathologist | | | | | At | Signature | + + + + + + | Triglycerid | 197 (H) | 35 - 160 mg/dL | [facility] | | | es | | | [facility] | | | | | | MEDICAL | | | | | | CENTER - | | | | | | LABORATORY | | + + + + + + | Cholesterol | 179 | 150 - 200 mg/dL | [facility] | | | | | | [facility] | | | | | | MEDICAL | | | | | | CENTER - | | | | | | LABORATORY | | + + + + + + | HDL | 34Comment: New HDL | 28 - 83 mg/dL | [facility] | | | | Reference Range as of | | [facility] | | | | April 03, 2015 | | MEDICAL | | | | Values may be 10-20% | | CENTER - | | | | lower with new, | | LABORATORY | | | | standardized method. | | | | + + + + + + | Chol/HDL | 5.3 | | [facility] | | | Ratio | | | [facility] | | | | | | MEDICAL | | | | | | CENTER - | | | | | | LABORATORY | | + + + + + + | LDL, | 106 | <=130 mg/dL | [facility] | | | Calculated | | | [facility] | | [...] | [facility] | [address] | [place] | [phone] | | [facility] | | [address] | | | - LABORATORY | | | | + + + + + Magnesium (11/04/2016 4:31 AM PDT) + +-------+ + + + | Component | Value | Ref Range | Performed | Pathologist | | | | | At | Signature | + +-------+ + + + | Magnesium | 2.1 | 1.8 - 2.5 mg/dL | [facility] | | | | | | [facility] | | [...] | + + + + + | [facility] | [address] | [place] | [phone] | | [facility] | | [address] | | | - LABORATORY | | | | + + + + + CK Total (11/04/2016 4:31 AM PDT) + +---------+ + + + | Component | Value | Ref Range | Performed | Pathologist | | | | | At | Signature | + +---------+ + + + | CK TOTAL | 914 (H) | 22 - 269 U/L | [facility] | | | | | | [facility] | | | | | | MEDICAL | | | | | | CENTER - | | | | | | LABORATORY | | + +---------+ + + + + + | Specimen | + + | Blood | + + + + + + + | Performing | Address | City/State/Zipcode | Phone Number | | Organization | | | | + + + + + | [facility] | [address] | [place] | [phone] | | [facility] | | [address] | | | - LABORATORY | | | | + + + + + Culture, MRSA (11/04/2016 12:56 AM PDT) + + + + + + | Component | Value | Ref Range | Performed | Pathologist | | | | | At | Signature | + + + + + + | Culture | Negative for MRSA by | | [facility] | | | | chromogenic agar method | | [facility] | | | | | | MEDICAL | | | | | | CENTER - | | | | | | LABORATORY | | + + + + + + + + | Specimen | + + | Respiratory - Both | | anterior nares (body | | structure) | + + + + + + + | Performing | Address | City/State/Zipcode | Phone Number | | Organization | | | | + + + + + | [facility] | [address] | [place] | [phone] | | [facility] | | [address] | | | - LABORATORY | | | | + + + + + C-Reactive Protein (11/03/2016 10:49 PM PDT) + +-------+ + + + | Component | Value | Ref Range | Performed | Pathologist | | | | | At | Signature | + +-------+ + + + | CRP | 7.99 | <8.00 mg/L | [facility] | | | | | | [facility] | | [...] | + + + + + | [facility] | [address] | [place] | [phone] | | [facility] | | [address] | | | - LABORATORY | | | | + + + + + Potassium (11/03/2016 10:49 PM PDT) + +-------+ + + + | Component | Value | Ref Range | Performed | Pathologist | | | | | At | Signature | + +-------+ + + + | K | 3.7 | 3.5 - 5.1 | [facility] | | | [...] + + + | [facility] | [address] | [place] | [phone] | | [facility] | | [address] | | | - LABORATORY | | | | + + + + + ECG 12 lead (11/03/2016 9:52 PM PDT) + + + + + + | Component | Value | Ref Range | Performed | Pathologist | | | | | At | Signature | + + + + + + | VENTRICULAR | 100 | BPM | [facility] | | | RATE EKG | | | | | + + + + + + | ATRIAL RATE | 100 | BPM | [facility] | | + + + + + + | P-R | 134 | ms | [facility] | | | INTERVAL | | | | | + + + + + + | QRS | 92 | ms | [facility] | | | DURATION | | | | | + + + + + + | Q-T | 352 | ms | [facility] | | | INTERVAL | | | | | + + + + + + | Q-T | 454 | ms | [facility] | | | INTERVAL | | | | | | (CORRECTED) | | | | | + + + + + + | P WAVE AXIS | 151 | degrees | [facility] | | + + + + + + | QRS AXIS | -26 | degrees | [facility] | | + + + + + + | T AXIS | 142 | degrees | [facility] | | + + + + + + | INTERPRETAT | Unusual P axis, possible | | [facility] | | | ION TEXT | ectopic atrial | | | | | | rhythmNonspecific ST and | | | | | | T wave | | | | | | abnormalityAbnormal | | | | | | ECGWhen compared with | | | | | | ECG of 03-NOV-2016 | | | | | | 15:51,Ectopic atrial | | | | | | rhythm has replaced | | | | | | Sinus rhythmST no longer | | | | | | elevated in Inferior | | | | | | leadsNonspecific T wave | | | | | | abnormality now evident | | | | | | in Inferior | | | | | | leadsConfirmed by | | | | | | SUKHJINDER WESTBROOK, ANA ([id number]) | | | | | | on 11/04/2016 6:33:34 AM | | | | + + + [...] | | + +---------+ + + POC ACT (11/03/2016 4:38 PM PDT) + +-------+ + + + | Component | Value | Ref Range | Performed | Pathologist | | | | | At | Signature | + +-------+ + + + | Activated | 148 | 125 - 175 | [facility] | | | Clotting | | second(s) | [facility] | | | Time, POC | | | MEDICAL | | | [...] + | [facility] | [address] | [place] | [phone] | | [facility] | | [address] | | | - LABORATORY | | | | + + + + + ECG 12 lead (11/03/2016 3:51 PM PDT) + + + + + + | Component | Value | Ref Range | Performed | Pathologist | | | | | At | Signature | + + + + + + | VENTRICULAR | 102 | BPM | [facility] | | | RATE EKG | | | | | + + + + + + | ATRIAL RATE | 102 | BPM | [facility] | | + + + + + + | P-R | 134 | ms | [facility] | | | INTERVAL | | | | | + + + + + + | QRS | 80 | ms | [facility] | | | DURATION | | | | | + + + + + + | Q-T | 360 | ms | [facility] | | | INTERVAL | | | | | + + + + + + | Q-T | 469 | ms | [facility] | | | INTERVAL | | | | | | (CORRECTED) | | | | | + + + + + + | P WAVE AXIS | 72 | degrees | [facility] | | + + + + + + | QRS AXIS | 41 | degrees | [facility] | | + + + + + + | T AXIS | 71 | degrees | [facility] | | + + + + + + | INTERPRETAT | Sinus | | [facility] | | | ION TEXT | tachycardiaNonspecific | | | | | | ST abnormalityAbnormal | | | | | | ECGWhen compared with | | | | | | ECG of 03-NOV-2016 | | | | | | 11:38, | | | | | | (Unconfirmed)Vent. rate | | | | | | has increased BY 40 | | | | | | BPMST less elevated in | | | | | | Inferior leadsT wave | | | | | | amplitude has decreased | | | | | | in Inferior | | | | | | leadsConfirmed by | | | | | | LATONIA GALLARDO MD | | | | | | ([id number]) on 11/03/2016 | | | | | | 4:10:37 PM | | | | + + [...] | | | + +---------+ + + CV CARDIAC PROCEDURE (11/03/2016 3:02 PM PDT) + + | Specimen | + + | | + + + + + | Narrative | Performed At | + + + | Latonia Jewell | | | MD [facility] 11/05/2016 11:18Ralph Bill Maldonado is a 55 y.o. male | | | patient.1. ST elevation myocardial infarction (STEMI) of inferior | | | wall (HCC) 2. Chest pain in adult 3. Diaphoresis 4. Anxiety | | | attack Past Medical History Diagnosis Date | | | Hepatitis C | | | COPD (chronic obstructive pulmonary disease) (HCC) | | | Restless leg syndrome | | | Asthma | | | Thyroid disease | | | Hyperlipidemia | | | Diverticulitis | | | Hernia, hiatal | | | Anxiety | | | Emphysema of lung (HCC) | | | Hypertension | | | Migraine | | | Neuropathy (HCC) | | | Thyroid disease | | | History of tobacco use | | | Thoracic radiculopathy 08/17/2016 Blood pressure 137/92, pulse 100, | | | temperature 36.1 C (97 F), temperature source Oral, resp. rate 15, | | | height 1.88 m (6' 2"), weight 105.235 kg (232 lb), SpO2 97 %. CV | | | Cardiac ProcedureDate/Time: 11/03/2016 15:31Performed by: WHITNEY, | | | LATONIA AAuthorized by: LATONIA GALLARDO AConsent: The procedure was | | | performed in an emergent situation. Verbal consent obtained.Risks and | | | benefits: risks, benefits and alternatives were discussedConsent given | | | by: patientPatient understanding: patient states understanding of the | | | procedure being performedPatient consent: the patient's understanding | | | of the procedure matches consent givenProcedure consent: procedure | | | consent matches procedure scheduledRelevant documents: relevant | | | documents present and verifiedTest results: test results available and | | | properly labeledSite marked: the operative site was markedImaging | | | studies: imaging studies availableRequired items: required blood | | | products, implants, devices, and special equipment availablePatient | | | identity confirmed: verbally with patientTime out: Immediately prior | | | to procedure a "time out" was called to verify the correct patient, | | | procedure, equipment, learning support assistant and site/side marked as | | | required.Preparation: Patient was prepped and draped in the usual | | | sterile fashion.Local anesthesia used: yesLocal anesthetic: lidocaine | | | 1% without epinephrinePatient sedated: yesSedatives: fentanyl and | | | midazolamVitals: Vital signs were monitored during sedation.Patient | | | tolerance: Patient tolerated the procedure well with no immediate | | | complications LEFT CARDIAC CATHETERIZATION AND CORONARY INTERVENTION | | | REPORT PATIENT NAME: Jennifer MaldonadoDATE OF : | | | 1960MEDICAL RECORD NUMBER: [id number] OF PROCEDURE: | | | 11/03/2016 | | | PRIMARY CARE PROVIDER: | | | Tommy Gomez [facility] EDUCATOR: Dr. Latonia Gallardo MD, [facility], | | | [facility] PRE-PROCEDURE DIAGNOSIS: STEMIPOST-PROCEDURE DIAGNOSIS: | | | same PROCEDURES PERFORMED: 1. Left Heart Catheterization | | | for pressures2. Coronary Angiography3. Left Venticulography 4. | | | Percutaneous coronary intervention for RCA5. Stent thrombosis of | | | the RCA and PTCA and IVUS of the RCA CAD Presentation: STEMI Anginal | | | Classification (within 2 weeks): class IVAnti-Anginal med (within 2 | | | weeks): noHeart Failure (within 2 weeks): noCardiomyopathy or LV | | | Systolic Dysfunction: noCardiogenic shock w/in 24 hours: | | | noPre-operative Evaluation Before Non-Cardiac Surgery: noCardiac | | | Arrest w/in 24 hours: noEvaluation of valvular heart disease: | | | noStress or Imaging Studies Performed: no Echocardiogram no | | | | | | Patient Risk factors: Age 55 y.o.advanced age (older than 55 | | | for men, 65 for women), dyslipidemia, family history of premature | | | cardiovascular disease and male gender; Diabetes Mellitus on | | | Insulin: noPrior PCI: noEstimated Creatinine Clearance: 132 | | | mL/min (based on Cr of 0.8). kidney dx: noChronic Lung disease: | | | yesBMI: Body mass index is 29.77 kg/(m^2).History of PAD: noPrior | | | history of CVA: no 2. Indication For Coronary | | | RevascularizationPlease indicate one of the following if PCI is | | | performed: STEMI By AUC criteria, PCI is Appropriate Appropriate | | | Use Calculator - PCISTEMI or Suspected STEMIAppropriate | | | careIndication 2Score 9 DESCRIPTION OF PROCEDURE: Informed consent | | | was obtained from the patient, and a time-out was performed to verify | | | the patient's identification and planned procedure. Please refer to | | | the computer log entry form for precise details. The right radial was | | | prepped and draped in the usual sterile fashion. The wire would not | | | pass the mid radial. The patient's right and left groins had been | | | prepped and draped in the usual sterile fashion, and anesthetized | | | with 1% lidocaine. A 6F sheath was inserted. Coronary angiography was | | | performed in multiple views using 5 [place] JL 3.5 diagnostic and a | | | JR4 guide. . A 5 gabonese pigtail catheter was advanced into the | | | left ventricle, pressures were measured, and left ventriculography was | | | performed. A pullback across the valve was used to assess if there | | | was a gradient across the aortic valve. After review of the digital | | | images, I elected to proceed with the coronary intervention. The | | | patient's anticoagulation regimen consisted aspirin and Bivalirudin. | | | of 6 F JR 4 . guide was used to cannulate the RCA vessel. This | | | did not fit well and was exchanged for an AR 1 guide. The lesion | | | was crossed with two wires a Forte Floppy and a Whisper wire. It was | | | pre dilated with 3.0 X 15 mm balloon. The lesion was then treated | | | with a 3.5 X 24 Promus RENETTA stent. + a 4.0 X 16 Promus RENETTA stent.The | | | patient was returned to the ICU and developed further pain and was | | | returned to the lab where an additional stent a 4.0 X 28 Promus was | | | placed. Access was the left femoral. IVUS was performed. | | | Buffered IC integrelin was administered. We used heparin for | | | anticoagulation and did multiple ACT's. The arteries were stiff and | | | calcified. It was difficult to pass anything. We resorted to | | | placing a 1.5 mm Mini Trek 12 mm and through this we were able to | | | exchange for a Wiggle wire 300. We then went back with a 4.5 X 20 NC | | | balloon and dilated along the stented segment. We repeated IVUS of | | | the proximal section of the sent. There was an excellent result. | | | Before the patient was off the table he again had increasing pain. | | | I had left the sheath in and so we took an angiographic catheter and | | | looked one more time. The artery was wide open without thrombus. | | | Angioseal was utilized to achieve successful hemostasis in the right | | | femoral artery. The left sheath was sutured in position and there | | | was no hematoma. There were no immediate complications. Estimated | | | blood loss was: 25 cc. Fluro Time: 38.6 min Contrast: 196 mls of | | | Omnipaque 350Moderate sedation start time: 1152. Moderate sedation | | | stop time: 1231. I, Latonia Gallardo MD, reviewed the patient's | | | pre-sedation assessment and vital signs, supervised and directed the | | | Moderate Sedation from administration to patient stabilization for | | | recovery. FINDINGS:Hemodynamics:Left ventricular end-diastolic | | | pressure (LVEDP) was 17 mm Hg. There was no gradient across the | | | aortic valve. Left Ventriculography: Minimal inferior hypokinesis. | | | EF 60% No MRLeft main coronary artery: Normal Left anterior | | | descending coronary artery: Large vessel mid section 20% multiple | | | areas. Large diagonal with no significant disease.Circumflex | | | coronary artery: Non dominant and no obstructive lesionsRight | | | coronary artery: Huge dominant vessel 100% occluded with RUPA 0 | | | flowPost intervention: No residual stenosis RUPA 3 flow No residual | | | stenosis and no thrombus CONCLUSIONS:1. Inferior [place] 100% RCA - | | | hypercoagulable state and thrombosis of RCA2. RENETTA stents to the | | | RCA3. Normal Left main 4. LAD with 20% mid lesions5. Non | | | dominant LCX without significant disease6. Mild inferior hypokinesis | | | - normal EF 7. Calcified "stiff"coronary arteries8. IVUS of the | | | RCA for stent optimization CLINICAL IMPRESSION AND RECOMMENDATIONS If | | | unable to take Aspirin switch to Effient given thrombosis Latonia | | | MD [facility], [facility], [facility]DATE[facility]: | | | 11/03/2016 15:334 15:33 Latonia Gallardo11/03/2016 | | | | | |DESCRIPTION OF PROCEDURE: | | | | | |Informed consent was obtained from the patient, and a time-out | | |was performed to verify the patient's identification and planned | | |procedure. Please refer to the computer log entry form for | | |precise details. The right radial was prepped and draped in the | | |usual sterile fashion. The wire would not pass the mid radial. | | |The patient's right and left groins had been prepped and draped | | |in the usual sterile fashion, and anesthetized with 1% lidocaine. | | |A 6F sheath was inserted. Coronary angiography was performed in | | |multiple views using 5 [place] JL 3.5 diagnostic and a JR4 guide. | | | . A 5 gabonese pigtail catheter was advanced into the left | | |ventricle, pressures were measured, and left ventriculography was | | |performed. A pullback across the valve was used to assess if | | |there was a gradient across the aortic valve. | | | | | |After review of the digital images, I elected to proceed with the | | |coronary intervention. The patient's anticoagulation regimen | | |consisted aspirin and Bivalirudin. of 6 F JR 4 . guide was used | | |to cannulate the RCA vessel. This did not fit well and was | | |exchanged for an AR 1 guide. The lesion was crossed with two | | |wires a Forte Floppy and a Whisper wire. It was pre dilated with | | |3.0 X 15 mm balloon. The lesion was then treated with a 3.5 X 24 | | |Promus RENETTA stent. + a 4.0 X 16 Promus RENETTA stent. | | |The patient was returned to the ICU and developed further pain | | |and was returned to the lab where an additional stent a 4.0 X 28 | | |Promus was placed. Access was the left femoral. IVUS was | | |performed. Buffered IC integrelin was administered. We used | | |heparin for anticoagulation and did multiple ACT's. The arteries | | |were stiff and calcified. It was difficult to pass anything. We | | |resorted to placing a 1.5 mm Mini Trek 12 mm and through this we | | |were able to exchange for a Wiggle wire 300. We then went back | | |with a 4.5 X 20 NC balloon and dilated along the stented segment. | | | | | |We repeated IVUS of the proximal section of the sent. There was | | |an excellent result. | | |Before the patient was off the table he again had increasing | | |pain. I had left the sheath in and so we took an angiographic | | |catheter and looked one more time. The artery was wide open | | |without thrombus. | | | | | | Angioseal was utilized to achieve successful hemostasis in the | | |right femoral artery. The left sheath was sutured in position | | |and there was no hematoma. There were no immediate complications. | | | | | | Estimated blood loss was: 25 cc. | | | Fluro Time: 38.6 min | | | Contrast: 196 mls of Omnipaque 350 | | |Moderate sedation start time: 1152. Moderate sedation stop time: | | |1231. I, Latonia Gallardo MD, reviewed the patient's | | |pre-sedation assessment and vital signs, supervised and directed | | |the Moderate Sedation from administration to patient | | |stabilization for recovery. | | | | | |FINDINGS: | | |Hemodynamics: | | |Left ventricular end-diastolic pressure (LVEDP) was 17 mm Hg. | | |There was no gradient across the aortic valve. | | | | | |Left Ventriculography: Minimal inferior hypokinesis. EF 60% No | | |MR | | |Left main coronary artery: Normal | | |Left anterior descending coronary artery: Large vessel mid | | |section 20% multiple areas. Large diagonal with no significant | | |disease. | | |Circumflex coronary artery: Non dominant and no obstructive | | |lesions | | |Right coronary artery: Huge dominant vessel 100% occluded with | | |RUPA 0 flow | | |Post intervention: No residual stenosis RUPA 3 flow | | |No residual stenosis and no thrombus | | |CONCLUSIONS: | | |1. Inferior [place] 100% RCA - hypercoagulable state and thrombosis | | |of RCA | | |2. RENETTA stents to the RCA | | |3. Normal Left main | | |4. LAD with 20% mid lesions | | |5. Non dominant LCX without significant disease | | |6. Mild inferior hypokinesis - normal EF | | |7. Calcified "stiff"coronary arteries | | |8. IVUS of the RCA for stent optimization | | | | | |CLINICAL IMPRESSION AND RECOMMENDATIONS | | |If unable to take Aspirin switch to Effient given thrombosis | | | | | |Latonia Gallardo MD, [facility], [facility] | | |[facility] | | |DATE/TIME: 11/03/2016 15:33 | | |11/03/2016 15:33 | | | | | | | | | | | |Latonia Gallardo | | |11/03/2016 | | | | | + + + POC ACT (11/03/2016 2:13 PM PDT) + +---------+ + + + | Component | Value | Ref Range | Performed | Pathologist | | | | | At | Signature | + +---------+ + + + | Activated | 285 (H) | 125 - 175 | [facility] | | | Clotting | | second(s) | [facility] | | | Time, POC | | | MEDICAL | | | | | | CENTER - | | | | | | LABORATORY | | + +---------+ + + + + + | Specimen | + + | | + + + + + + + | Performing | Address | City/State/Zipcode | Phone Number | | Organization | | | | + + + + + | [facility] | [address] | [place] | [phone] | | [facility] | | [address] | | | - LABORATORY | | | | + + + + + POC ACT (11/03/2016 2:00 PM PDT) + +---------+ + + + | Component | Value | Ref Range | Performed | Pathologist | | | | | At | Signature | + +---------+ + + + | Activated | [address] (H) | 125 - 175 | [facility] | | | Clotting | | second(s) | [facility] | | | Time, POC | | | MEDICAL | | | | | | CENTER - | | | | | | LABORATORY | | + +---------+ + + + + + | Specimen | + + | | + + + + + + + | Performing | Address | City/State/Zipcode | Phone Number | | Organization | | | | + + + + + | [facility] | [address] | [place] | [phone] | | [facility] | | [address] | | | - LABORATORY | | | | + + + + + POC ACT (11/03/2016 1:34 PM PDT) + +---------+ + + + | Component | Value | Ref Range | Performed | Pathologist | | | | | At | Signature | + +---------+ + + + | Activated | 355 (H) | 125 - 175 | [facility] | | | Clotting | | second(s) | [facility] | | | Time, POC | | | MEDICAL | | | | | | CENTER - | | | | | | LABORATORY | | + +---------+ + + + + + | Specimen | + + | | + + + + + + + | Performing | Address | City/State/Zipcode | Phone Number | | Organization | | | | + + + + + | [facility] | [address] | [place] | [phone] | | [facility] | | [address] | | | - LABORATORY | | | | + + + + + Comprehensive Metabolic Panel (11/03/2016 12:30 PM PDT) + + + + + + | Component | Value | Ref Range | Performed | Pathologist | | | | | At | Signature | + + + + + + | Na | 139 | 136 - 149 | [facility] | | | | | mmol/L | [facility] | | | | | | MEDICAL | | | | | | CENTER - | | | | | | LABORATORY | | + + + + + + | K | 3.4 (L) | 3.5 - 5.1 | [facility] | | | | | mmol/L | [facility] | | | | | | MEDICAL | | | | | | CENTER - | | | | | | LABORATORY | | + + + + + + | Cl | 105 | 98 - 109 mmol/L | [facility] | | | | | | [facility] | | | | | | [facility] | | | | | | CENTER - | | | | | | LABORATORY | | + + + + + + | CO2 | 24 | 24 - 31 mmol/L | [facility] | | | | | | [facility] | | | | | | MEDICAL | | | | | | CENTER - | | | | | | LABORATORY | | + + + + + + | Anion Gap | 10 | 3 - 16 mmol/L | [facility] | | | | | | [facility] | | | | | | MEDICAL | | | | | | CENTER - | | | | | | LABORATORY | | + + + + + + | Glucose | 134 (H) | 70 - 109 mg/dL | [facility] | | | | | | [facility] | | | | | | [facility] | | | | | | CENTER - | | | | | | LABORATORY | | + + + + + + | BUN | 19 (H) | 7 - 18 mg/dL | [facility] | | | | | | [facility] | | | | | | MEDICAL | | | | | | CENTER - | | | | | | LABORATORY | | + + + + + + | Creatinine | 0.80 | 0.60 - 1.30 | [facility] | | | | | mg/dL | [facility] | | | | | | MEDICAL | | | | | | CENTER - | | | | | | LABORATORY | | + + + + + + | eGFR, | >60Comment: GLOMERULAR | >=60 | [facility] | | | non- | FILTRATION | mL/min/1.73m2 | [facility] | | | [place] | RATE,ESTIMATED | | MEDICAL | | | | mL/min/1.31a0Epst than | | CENTER - | | [...] + + + + | Calcium | 8.9 | 8.3 - 10.5 | [facility] | | | | | mg/dL | [facility] | | | | | | MEDICAL | | | | | | CENTER - | | | | | | LABORATORY | | + + + + + + | Albumin | 3.7 | 3.2 - 5.0 g/dL | [facility] | | | | | | [facility] | | | | | | MEDICAL | | | | | | CENTER - | | | | | | LABORATORY | | + + + + + + | Bilirubin | 0.7 | 0.1 - 1.5 mg/dL | [facility] | | | Total | | | [facility] | | | | | | MEDICAL | | | | | | CENTER - | | | | | | LABORATORY | | + + + + + + | Total | 6.4 | 6.0 - 7.8 g/dL | [facility] | | | Protein | | | [facility] | | | | | | MEDICAL | | | | | | CENTER - | | | | | | LABORATORY | | + + + + + + | AST | 18 | 10 - 42 U/L | [facility] | | | | | | [facility] | | | | | | MEDICAL | | | | | | CENTER - | | | | | | LABORATORY | | + + + + + + | ALT | 25 | 6 - 45 U/L | [facility] | | | | | | [facility] | | | | | | MEDICAL | | | | | | CENTER - | | | | | | LABORATORY | | + + + + + + | Alkaline | 79 | 40 - 110 U/L | [facility] | | | Phosphatase | | | [facility] | | | | | | MEDICAL | | | | | | CENTER - | | | | | | LABORATORY | | + + + + + + | Globulin | 2.7 | 2.1 - 3.8 g/dL | [facility] | | | | | | [facility] | | | | | | MEDICAL | | | | | | CENTER - | | | | | | LABORATORY | | + + + + + + | Albumin/Joanna | 1.4 | 0.8 - 2.0 | [facility] | | | bulin Ratio | | | [facility] | | | | | | MEDICAL | | | | | | CENTER - | | | | | | LABORATORY | | + + + + + + | BUN/Creatin | 23.8 | | [facility] | | | ine Ratio | | | [facility] | | [...] ST. | [address] | [place], [place] | [phone] | | [facility] | | [address] | | | - LABORATORY | | | | + + + + + POC Blood Gases (11/03/2016 12:04 PM PDT) + +--------+ + + + | Component | Value | Ref Range | Performed | Pathologist | | | | | At | Signature | + +--------+ + + + | Specimen | Artery | | [facility] | | | Source | | | [facility] | | | | | | MEDICAL | | | | | | CENTER - | | | | | | LABORATORY | | + +--------+ + + + | pH, POC | 7.442 | 7.350 - 7.500 | [facility] | | | | | | [facility] | | | | | | MEDICAL | | | | | | CENTER - | | | | | | LABORATORY | | + +--------+ + + + | Sodium, | 140.00 | | [facility] | | | Venous, POC | | | [facility] | | | | | | MEDICAL | | | | | | CENTER - | | | | | | LABORATORY | | + +--------+ + + + | Chloride, | 105 | 98 - 107 | [facility] | | | POC | | | [facility] | | | | | | MEDICAL | | | | | | CENTER - | | | | | | LABORATORY | | + +--------+ + + + | Potassium, | 3.8 | 3.5 - 5.1 | [facility] | | | POC | | mmol/L | [facility] | | | | | | MEDICAL | | | | | | CENTER - | | | | | | LABORATORY | | + +--------+ + + + | Ionized | 4.70 | 4.50 - 5.30 | [facility] | | | Calcium, | | mg/dL | [facility] | | | POC | | | MEDICAL | | | | | | CENTER - | | | | | | LABORATORY | | + +--------+ + + + | Glucose, | 135 | 70 - 150 mg/dL | [facility] | | | POC | | | [facility] | | | | | | MEDICAL | | | | | | CENTER - | | | | | | LABORATORY | | + +--------+ + + + | Creatinine, | 1.1 | 0.5 - 1.2 mg/dL | [facility] | | | POC | | | [facility] | | | | | | MEDICAL | | | | | | CENTER - | | | | | | LABORATORY | | + +--------+ + + + | eGFR, | >60 | >=60 | [facility] | | | non- | | mL/min/1.73m2 | [facility] | | | [place] | | | MEDICAL | | | | | | CENTER - | | | | | | LABORATORY | | + +--------+ + + + | Hematocrit, | 47 | | [facility] | | | Temp | | | [facility] | | | corrected, | | | MEDICAL | | | POC | | | CENTER - | | | | | | LABORATORY | | + +--------+ + + + | Hemoglobin, | 16.1 | 12.0 - 17.0 | [facility] | | | POC | | g/dL | [facility] | | | | | | MEDICAL | | | | | | CENTER - | | | | | | LABORATORY | | + +--------+ + + + | HCO3, POC | 25.2 | 21.0 - 28.0 | [facility] | | | | | mmol/L | [facility] | | | | | | MEDICAL | | | | | | CENTER - | | | | | | LABORATORY | | + +--------+ + + + | TCO2, POC | 26.3 | 22.0 - 29.0 | [facility] | | | | | mmol/L | [facility] | | | | | | MEDICAL | | | | | | CENTER - | | | | | | LABORATORY | | + +--------+ + + + | Base | 1.3 | -2.0 - 3.0 | [facility] | | | Excess, POC | | | [facility] | | | | | | MEDICAL | | | | | | CENTER - | | | | | | LABORATORY | | + +--------+ + + + | Base | 1.0 | -2.0 - 3.0 | [facility] | | | Excess, | | mmol/L | [facility] | | | Extracellul | | | MEDICAL | | | ar fluid, | | | CENTER - | | | POC | | | LABORATORY | | + +--------+ + + + | O2 Sat, POC | 98 | | [facility] | | | | | | [facility] | | | | | | MEDICAL | | | | | | CENTER - | | | | | | LABORATORY | | + +--------+ + + + | PCO2, POC | 36.8 | mmHg | [facility] | | | | | | [facility] | | | | | | MEDICAL | | | | | | CENTER - | | | | | | LABORATORY | | + +--------+ + + + | PO2, POC | 92.2 | mmhg | [facility] | | | | | | [facility] | | | | | | MEDICAL | | | | | | CENTER - | | | | | | LABORATORY | | + +--------+ + + + + + | Specimen | + + | | + + + + + + + | Performing | Address | City/State/Zipcode | Phone Number | | Organization | | | | + + + + + | [facility] | [address] | [place] | [phone] | | [facility] | | [address] | | | - LABORATORY | | | | + + + + + ECG 12 lead (11/03/2016 11:38 AM PDT) + + + + + + | Component | Value | Ref Range | Performed | Pathologist | | | | | At | Signature | + + + + + + | VENTRICULAR | 62 | BPM | [facility] | | | RATE EKG | | | | | + + + + + + | ATRIAL RATE | 62 | BPM | [facility] | | + + + + + + | P-R | 136 | ms | [facility] | | | INTERVAL | | | | | + + + + + + | QRS | 88 | ms | [facility] | | | DURATION | | | | | + + + + + + | Q-T | 414 | ms | [facility] | | | INTERVAL | | | | | + + + + + + | Q-T | 420 | ms | [facility] | | | INTERVAL | | | | | | (CORRECTED) | | | | | + + + + + + | P WAVE AXIS | 64 | degrees | [facility] | | + + + + + + | QRS AXIS | 59 | degrees | [facility] | | + + + + + + | T AXIS | 89 | degrees | [facility] | | + + + + + + | INTERPRETAT | Normal sinus rhythmST | | [facility] | | | ION TEXT | elevation, consider | | | | | | inferolateral injury or | | | | | | acute infarct ACUTE | | | | | | [place] / STEMI | | | | | | Consider right | | | | | | ventricular involvement | | | | | | in acute inferior | | | | | | infarctAbnormal ECGNo | | | | | | previous ECGs | | | | | | availableConfirmed by | | | | | | LATONIA GALLARDO MD | | | | | | ([id number]) on 11/03/2016 | | | | | | 4:10:14 PM | | | | + + [...] | | | + +---------+ + + Troponin I (11/03/2016 11:34 AM PDT) + + + + + + | Component | Value | Ref Range | Performed | Pathologist | | | | | At | Signature | + + + + + + | Troponin I | 0.06 (H) | <0.06 ng/mL | [facility] | | | | | [...] | + + + + + | [facility] | [address] | [place] | [phone] | | [facility] | | [address] | | | - LABORATORY | | | | + + + + + Protime INR (11/03/2016 11:34 AM PDT) + + + + + + | Component | Value | Ref Range | Performed | Pathologist | | | | | At | Signature | + + + + + + | Prothrombin | 12.0 | 11.3 - 13.9 | [facility] | | | Time | | seconds | [facility] | | | | | | MEDICAL | | | | | | CENTER - | | | | | | LABORATORY | | + + + + + + | INR | 0.87 (L)Comment: Usual | 0.90 - 1.10 | [facility] | | | | Oral Anticoagulation | | [facility] | | | | Range: 2.0 - | | MEDICAL | | | | 3.0High Level Oral | | CENTER - | | | | Anticoagulation Range: | | LABORATORY | | | | 2.5 - 3.5 | | | | + + + + + + + + | Specimen | + + | Blood | + + + + + + + | Performing | Address | City/State/Zipcode | Phone Number | | Organization | | | | + + + + + | [facility] | [address] | [place] | [phone] | | [facility] | | [address] | | | - LABORATORY | | | | + + + + + CBC w/ Auto Differential (11/03/2016 11:34 AM PDT) + + + + + + | Component | Value | Ref Range | Performed | Pathologist | | | | | At | Signature | + + + + + + | White Blood | 12.5 (H) | 4.0 - 11.0 K/uL | [facility] | | | Cells | | | [facility] | | | | | | MEDICAL | | | | | | CENTER - | | | | | | LABORATORY | | + + + + + + | Red Blood | 5.06 | 4.30 - 5.70 | [facility] | | | Cells | | M/uL | [facility] | | | | | | MEDICAL | | | | | | CENTER - | | | | | | LABORATORY | | + + + + + + | Hemoglobin | 16.4 | 13.5 - 18.0 | [facility] | | | | | g/dL | [facility] | | | | | | MEDICAL | | | | | | CENTER - | | | | | | LABORATORY | | + + + + + + | Hematocrit | 48.5 | 40.0 - 51.0 % | [facility] | | | | | | [facility] | | | | | | MEDICAL | | | | | | CENTER - | | | | | | LABORATORY | | + + + + + + | MCV | 95.9 | 83.0 - 101.0 fL | [facility] | | | | | | [facility] | | | | | | MEDICAL | | | | | | CENTER - | | | | | | LABORATORY | | + + + + + + | MCH | 32.3 | 28.0 - 35.0 pg | [facility] | | | | | | [facility] | | | | | | MEDICAL | | | | | | CENTER - | | | | | | LABORATORY | | + + + + + + | MCHC | 33.7 | 32.0 - 36.0 | [facility] | | | | | g/dL | [facility] | | | | | | MEDICAL | | | | | | CENTER - | | | | | | LABORATORY | | + + + + + + | RDW-CV | 13.5 | <15.0 % | [facility] | | | | | | [facility] | | | | | | MEDICAL | | | | | | CENTER - | | | | | | LABORATORY | | + + + + + + | Platelet | 315 | 140 - 440 K/uL | [facility] | | | Count | | | [facility] | | | | | | MEDICAL | | | | | | CENTER - | | | | | | LABORATORY | | + + + + + + | MPV | 8.5 | fL | [facility] | | | | | | [facility] | | | | | | MEDICAL | | | | | | CENTER - | | | | | | LABORATORY | | + + + + + + | % | 49.8 | 45.0 - 82.0 % | [facility] | | | Neutrophils | | | [facility] | | | | | | MEDICAL | | | | | | CENTER - | | | | | | LABORATORY | | + + + + + + | % | 36.9 | 20.0 - 45.0 % | [facility] | | | Lymphocytes | | | [facility] | | | | | | MEDICAL | | | | | | CENTER - | | | | | | LABORATORY | | + + + + + + | % Monocytes | 6.8 | 4.0 - 12.0 % | [facility] | | | | | | [facility] | | | | | | MEDICAL | | | | | | CENTER - | | | | | | LABORATORY | | + + + + + + | % | 3.9 | 0.0 - 5.0 % | [facility] | | | Eosinophils | | | [facility] | | | | | | MEDICAL | | | | | | CENTER - | | | | | | LABORATORY | | + + + + + + | % Basophils | 2.6 (H) | 0.0 - 1.0 % | [facility] | | | | | | [facility] | | | | | | MEDICAL | | | | | | CENTER - | | | | | | LABORATORY | | + + + + + + | Absolute | 6.20 | 1.80 - 8.50 | [facility] | | | Neutrophils | | K/uL | [facility] | | | | | | MEDICAL | | | | | | CENTER - | | | | | | LABORATORY | | + + + + + + | Absolute | 4.60 (H) | 0.60 - 3.20 | [facility] | | | Lymphocytes | | K/uL | [facility] | | | | | | MEDICAL | | | | | | CENTER - | | | | | | LABORATORY | | + + + + + + | Absolute | 0.80 | 0.00 - 1.00 | [facility] | | | Monocytes | | K/uL | [facility] | | | | | | MEDICAL | | | | | | CENTER - | | | | | | LABORATORY | | + + + + + + | Absolute | 0.50 (H) | 0.00 - 0.40 | [facility] | | | Eosinophils | | K/uL | [facility] | | | | | | MEDICAL | | | | | | CENTER - | | | | | | LABORATORY | | + + + + + + | Absolute | 0.30 (H) | 0.00 - 0.10 | [facility] | | | Basophils | | K/uL | [facility] | [...] ST[facility] | [address] | [place] | [phone] | | [facility] | | [address] | | | - LABORATORY | | | | + + + + + documented in this encounter Visit Diagnoses + + | Diagnosis | + + | ST elevation myocardial infarction (STEMI) of inferior wall (HCC) Acute myocardial | | infarction of other inferior wall, episode of care unspecified | + + | Chest pain in adult | + + | Diaphoresis Generalized hyperhidrosis | + + | Anxiety attack Panic disorder without agoraphobia | + + | ST elevation myocardial infarction involving right coronary artery (HCC) Acute | | myocardial infarction of inferoposterior wall, initial episode of care | + + | Hyperlipidemia Other and unspecified hyperlipidemia | + + | Hypertension Unspecified essential hypertension | + + | Hepatitis C Unspecified viral hepatitis C without hepatic coma | + + | 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 | + + | COPD (chronic obstructive pulmonary disease) (HCC) Chronic airway obstruction, not | | elsewhere classified | + + documented in this encounter Administered Medications + +--------+ +--------+------+------+ | Medication Order | MAR | Action | Dose | Rate | Site | | | Action | Date | | | | + +--------+ +--------+------+------+ | acetaminophen (TYLENOL) tablet | Given | 11/04/19 | 650 mg | | | | 650 mg 650 mg, Oral, EVERY | | 17 8:47 | | | | | HOURS PRN, Pain, Fever, Starting | | PM PDT | | | | | 11/03/16 at 1540, | | | | | | | Post-op/Phase II | | | | | | + +--------+ +--------+------+------+ +---+---+ | | | +---+---+ + +-------+ +-------+---+---+ | aspirin EC tablet 81 mg 81 mg, | Given | 11/06/19 | 81 mg | | | | Oral, DAILY, First dose on Tue | | 17 9:40 | | | | | 11/04/16 at 0900, Do not cut or | | AM PDT | | | | | crush., | | | | | | + +-------+ +-------+---+---+ +-------+ +-------+---+---+ | Given | 11/05/19 | 81 mg | | | | | 17 8:11 | | | | | | AM PDT | | | | +-------+ +-------+---+---+ +---+---+ | | | +---+---+ + +-------+ +-------+---+---+ | atorvaSTATin (LIPITOR) tablet | Given | 11/05/19 | 80 mg | | | | 80 mg 80 mg, Oral, NIGHTLY, | | 17 8:55 | | | | | First dose on Tue11/03/16 at 2300 | | PM PDT | | | | + +-------+ +-------+---+---+ +-------+ +-------+---+---+ | Given | 11/04/19 | 80 mg | | | | | 17 10:57 | | | | | | PM PDT | | | | +-------+ +-------+---+---+ +---+---+ | | | +---+---+ + +-------+ +--------+---+---+ | budesonide (PULMICORT) 0.5 mg/2 | Given | 11/06/19 | 0.5 mg | | | | mL nebulizer solution 0.5 mg | | 17 9:02 | | | | | 0.5 mg, Nebulization, RT BID, | | AM PDT | | | | | First dose on Tue11/03/16 at | | | | | | | 2100, RT will administer. Shake | | | | | | | well. Protect from light. Rinse | | | | | | | mouth after use., | | | | | | + +-------+ +--------+---+---+ +-------+ +--------+---+---+ | Given | 11/05/19 | 0.5 mg | | | | | 17 9:07 | | | | | | PM PDT | | | | +-------+ +--------+---+---+ | Given | 11/05/19 | 0.5 mg | | | | | 17 9:10 | | | | | | AM PDT | | | | +-------+ +--------+---+---+ +---+---+ | | | +---+---+ + +-------+ +-------+---+---+ | busPIRone (BUSPAR) tablet 15 mg | Given | 11/06/19 | 15 mg | | | | 15 mg, Oral, EVERY 12 HOURS (2 | | 17 9:41 | | | | | times per day), First dose on Tue | | AM PDT | | | | | 11/03/16 at 2100 | | | | | | + +-------+ +-------+---+---+ +-------+ +-------+---+---+ | Given | 11/05/19 | 15 mg | | | | | 17 8:55 | | | | | | PM PDT | | | | +-------+ +-------+---+---+ | Given | 11/05/19 | 15 mg | | | | | 17 8:10 | | | | | | AM PDT | | | | +-------+ +-------+---+---+ +---+---+ | | | +---+---+ + +-------+ +--------+---+---+ | calcium carbonate (TUMS) | Given | 11/06/19 | 500 mg | | | | chewable tablet 500 mg 500 mg, | | 17 9:40 | | | | | Oral, DAILY, First dose on Tue | | AM PDT | | | | | 11/03/16 at 1715 | | | | | | + +-------+ +--------+---+---+ +-------+ +--------+---+---+ | Given | 11/05/19 | 500 mg | | | | | 17 8:10 | | | | | | AM PDT | | | | +-------+ +--------+---+---+ | Given | 11/04/19 | 500 mg | | | | | 17 5:57 | | | | | | PM PDT | | | | +-------+ +--------+---+---+ +---+---+ | | | +---+---+ + +-------+ +--------+---+---+ | colchicine tablet 0.6 mg 0.6 | Given | 11/06/19 | 0.6 mg | | | | mg, Oral, 2 TIMES DAILY, First | | 17 9:40 | | | | | dose on Tue11/03/16 at 2230, Hold | | AM PDT | | | | | for diarrhea., | | | | | | + +-------+ +--------+---+---+ +-------+ +--------+---+---+ | Given | 11/05/19 | 0.6 mg | | | | | 17 8:56 | | | | | | PM PDT | | | | +-------+ +--------+---+---+ | Given | 11/05/19 | 0.6 mg | | | | | 17 8:11 | | | | | | AM PDT | | | | +-------+ +--------+---+---+ +---+---+ | | | +---+---+ + +-------+ +-------+---+---+ | famotidine (PEPCID) tablet 20 | Given | 11/06/19 | 20 mg | | | | mg 20 mg, Oral, 2 TIMES DAILY, | | 17 9:40 | | | | | First dose on Tue11/03/16 at 2100 | | AM PDT | | | | + +-------+ +-------+---+---+ +-------+ +-------+---+---+ | Given | 11/05/19 | 20 mg | | | | | 17 8:55 | | | | | | PM PDT | | | | +-------+ +-------+---+---+ | Given | 11/05/19 | 20 mg | | | | | 17 8:11 | | | | | | AM PDT | | | | +-------+ +-------+---+---+ +---+---+ | | | +---+---+ + +-------+ +--------+---+---+ | fentaNYL (PF) injection 25-50 | Given | 11/04/19 | 50 mcg | | | | mcg 25-50 mcg, Intravenous, | | 17 9:30 | | | | | EVERY 1 HOUR PRN, Pain, Starting | | PM PDT | | | | | 11/03/16 at 1641 | | | | | | + +-------+ +--------+---+---+ +-------+ +--------+---+---+ | Given | 11/04/19 | 50 mcg | | | | | 17 8:25 | | | | | | PM PDT | | | | +-------+ +--------+---+---+ | Given | 11/04/19 | 50 mcg | | | | | 17 6:21 | | | | | | PM PDT | | | | +-------+ +--------+---+---+ +---+---+ | | | +---+---+ + +-------+ +--------+---+---+ | gabapentin (NEURONTIN) capsule | Given | 11/06/19 | 600 mg | | | | 600 mg 600 mg, Oral, 3 TIMES | | 17 9:41 | | | | | DAILY, First dose on Tue11/03/16 | | AM PDT | | | | | at 2100 | | | | | | + +-------+ +--------+---+---+ +-------+ +--------+---+---+ | Given | 11/05/19 | 600 mg | | | | | 17 8:56 | | | | | | PM PDT | | | | +-------+ +--------+---+---+ | Given | 11/05/19 | 600 mg | | | | | 17 8:09 | | | | | | AM PDT | | | | +-------+ +--------+---+---+ +---+---+ | | | +---+---+ + +-------+ +---------+---+---+ | HYDROcodone-acetaminophen | Given | 11/06/19 | 2 | | | | (NORCO) 10-325 mg per tablet 1-2 | | 17 7:41 | tablets | | | | tablet 1-2 tablet, Oral, EVERY 4 | | AM PDT | | | | | HOURS PRN, Pain, Starting Tue | | | | | | | 11/03/16 at 1648 | | | | | | + +-------+ +---------+---+---+ +-------+ +---------+---+---+ | Given | 11/05/19 | 2 | | | | | 17 7:20 | tablets | | | | | PM PDT | | | | +-------+ +---------+---+---+ | Given | 11/05/19 | 2 | | | | | 17 12:11 | tablets | | | | | PM PDT | | | | +-------+ +---------+---+---+ +---+---+ | | | +---+---+ + +-------+ +------+---+---+ | HYDROmorphone (DILAUDID) | Given | 11/04/19 | 1 mg | | | | injection 0.5-1 mg 0.5-1 mg, | | 17 9:46 | | | | | Intravenous, EVERY 2 HOURS PRN, | | PM PDT | | | | | Pain, Starting Tue11/03/16 at | | | | | | | 2140 | | | | | | + +-------+ +------+---+---+ +---+---+ | | | +---+---+ + +-------+ +---------+---+---+ | ipratropium (ATROVENT) 500 | Given | 11/06/19 | 500 mcg | | | | mcg/2.5 mL nebulizer solution 500 | | 17 9:02 | | | | | mcg 500 mcg, Nebulization, RT | | AM PDT | | | | | TID, First dose on Tue11/03/16 at | | | | | | | 2100, RT will administer., | | | | | | + +-------+ +---------+---+---+ +-------+ +---------+---+---+ | Given | 11/05/19 | 500 mcg | | | | | 17 9:07 | | | | | | PM PDT | | | | +-------+ +---------+---+---+ | Given | 11/05/19 | 500 mcg | | | | | 17 2:34 | | | | | | PM PDT | | | | +-------+ +---------+---+---+ +---+---+ | | | +---+---+ + +-------+ +---------+---+---+ | levalbuterol (XOPENEX) 1.25 | Given | 11/04/19 | 1.25 mg | | | | mg/3 mL nebulizer solution 1.25 | | 17 8:59 | | | | | mg 1.25 mg, Nebulization, RT | | PM PDT | | | | | TID, First dose on Tue11/03/16 at | | | | | | | 2100, RT will administer. | | | | | | | Protect from light., | | | | | | + +-------+ +---------+---+---+ +---+---+ | | | +---+---+ + +-------+ +---------+---+---+ | levalbuterol (XOPENEX) 1.25 | Given | 11/06/19 | 1.25 mg | | | | mg/3 mL nebulizer solution 1.25 | | 17 9:00 | | | | | mg 1.25 mg, Nebulization, RT | | AM PDT | | | | | EVERY 4 HOURS PRN, Shortness of | | | | | | | Breath, Starting Tue11/03/16 at | | | | | | | 2230, RT will administer. Protect | | | | | | | from light., | | | | | | + +-------+ +---------+---+---+ +-------+ +---------+---+---+ | Given | 11/05/19 | 1.25 mg | | | | | 17 9:07 | | | | | | PM PDT | | | | +-------+ +---------+---+---+ | Given | 11/05/19 | 1.25 mg | | | | | 17 2:33 | | | | | | PM PDT | | | | +-------+ +---------+---+---+ +---+---+ | | | +---+---+ + +-------+ +---------+---+---+ | levothyroxine (SYNTHROID, | Given | 11/06/19 | 175 mcg | | | | LEVOTHROID) tablet 175 mcg 175 | | 17 7:33 | | | | | mcg, Oral, DAILY BEFORE | | AM PDT | | | | | BREAKFAST, First dose on Tue | | | | | | | 11/03/16 at 1700, Give before | | | | | | | breakfast., | | | | | | + +-------+ +---------+---+---+ +-------+ +---------+---+---+ | Given | 11/05/19 | 175 mcg | | | | | 17 7:57 | | | | | | AM PDT | | | | +-------+ +---------+---+---+ +---+---+ | | | +---+---+ + +-------+ +------+---+---+ | LORazepam (ATIVAN) injection 2 | Given | 11/04/19 | 2 mg | | | | mg 2 mg, Intravenous, ONCE, Wed | | 17 11:33 | | | | | 11/03/16 at 1130, For 1 dose | | AM PDT | | | | + +-------+ +------+---+---+ +---+---+ | | | +---+---+ + +-------+ +------+---+---+ | LORazepam (ATIVAN) tablet 1-2 | Given | 11/05/19 | 2 mg | | | | mg 1-2 mg, Oral, EVERY 4 HOURS | | 17 8:56 | | | | | PRN, Insomnia, Starting Wed | | PM PDT | | | | | 11/03/16 at 1640 | | | | | | + +-------+ +------+---+---+ +-------+ +------+---+---+ | Given | 11/05/19 | 2 mg | | | | | 17 5:26 | | | | | | AM PDT | | | | +-------+ +------+---+---+ | Given | 11/04/19 | 1 mg | | | | | 17 10:24 | | | | | | PM PDT | | | | +-------+ +------+---+---+ +---+---+ | | | +---+---+ + +---------+ +-----+ +---+ | magnesium sulfate 2 g/50 mL | New Bag | 11/04/19 | 2 g | 25 mL/hr | | | IVPB 2 g 2 g, Intravenous, | | 17 10:57 | | | | | Administer over 120 Minutes, | | PM PDT | | | | | ONCE, 11/03/16 at 2300, For 1 | | | | | | | dose, Maximum recommended | | | | | | | infusion rate = 1 gram/hour., | | | | | | + +---------+ +-----+ +---+ +---+---+ | | | +---+---+ + +-------+ +------+---+---+ | melatonin tablet 3 mg 3 mg, | Given | 11/04/19 | 3 mg | | | | Oral, NIGHTLY PRN, Insomnia, | | 17 10:24 | | | | | Starting 11/03/16 at 2212 | | PM PDT | | | | + +-------+ +------+---+---+ +---+---+ | | | +---+---+ + +-------+ +--------+---+---+ | metoprolol tartrate (LOPRESSOR) | Given | 11/06/19 | 100 mg | | | | tablet 100 mg 100 mg, Oral, 2 | | 17 9:41 | | | | | TIMES DAILY, First dose (after | | AM PDT | | | | | last modification) on Joceline 11/04/16 | | | | | | | at 0900 | | | | | | + +-------+ +--------+---+---+ +-------+ +--------+---+---+ | Given | 11/05/19 | 100 mg | | | | | 17 8:56 | | | | | | PM PDT | | | | +-------+ +--------+---+---+ | Given | 11/05/19 | 100 mg | | | | | 17 8:11 | | | | | | AM PDT | | | | +-------+ +--------+---+---+ +---+---+ | | | +---+---+ + +-------+ +-------+---+---+ | metoprolol tartrate (LOPRESSOR) | Given | 11/04/19 | 50 mg | | | | tablet 50 mg 50 mg, Oral, | | 17 8:49 | | | | | TIMES DAILY, First dose on Tue | | PM PDT | | | | | 11/03/16 at 2100 | | | | | | + +-------+ +-------+---+---+ +---+---+ | | | +---+---+ + +-------+ +-------+---+---+ | metoprolol tartrate (LOPRESSOR) | Given | 11/04/19 | 50 mg | | | | tablet 50 mg 50 mg, Oral, ONCE, | | 17 10:24 | | | | | Tue11/03/16 at 2230, For 1 dose, | | PM PDT | | | | | Increase dose, | | | | | | + +-------+ +-------+---+---+ +---+---+ | | | +---+---+ + +---------+ +---------+---+ + | nicotine (NICODERM) 21 mg/24 hr | Patch | 11/05/19 | 1 patch | | Arm-Rigdoyle | | 1 patch 1 patch, Transdermal, | Applied | 17 8:17 | | | t Upper | | DAILY, First dose on Tue11/03/16 | | AM PDT | | | | | at 1700 | | | | | | + +---------+ +---------+---+ + + + +---------+---+ + | Patch Applied | 11/04/19 | 1 patch | | Arm-Left | | | 17 5:46 | | | Upper | | | PM PDT | | | | + + +---------+---+ + + +---+ | | | + +---+ | nitroglycerin (NITROSTAT) 0.4 | | | mg SL tablet Starting Wed | | | 11/03/16 at 1302, For 1 dose, | | | VICENTA BARRON D: janell | | | override, | | + +---+ | | | + +---+ + +-------+ +--------+---+---+ | nitroglycerin (NITROSTAT) SL | Given | 11/04/19 | 0.4 mg | | | | tablet 0.4 mg 0.4 mg, | | 17 12:58 | | | | | Sublingual, ONCE, 11/03/16 at | | PM PDT | | | | | 1155, For 1 dose, Maximum of 3 | | | | | | | doses in 15 minutes., | | | | | | + +-------+ +--------+---+---+ +-------+ +--------+---+---+ | Given | 11/04/19 | 0.4 mg | | | | | 17 11:54 | | | | | | AM PDT | | | | +-------+ +--------+---+---+ +---+---+ | | | +---+---+ + +-------+ +-------+---+---+ | oxyCODONE (ROXICODONE) tablet | Given | 11/04/19 | 10 mg | | | | 5-10 mg 5-10 mg, Oral, EVERY 4 | | 17 8:46 | | | | | HOURS PRN, Pain, Starting Wed | | PM PDT | | | | | 11/03/16 at 1540, Post-op/Phase II | | | | | | + +-------+ +-------+---+---+ +-------+ +-------+---+---+ | Given | 11/04/19 | 10 mg | | | | | 17 4:02 | | | | | | PM PDT | | | | +-------+ +-------+---+---+ +---+---+ | | | +---+---+ + +-------+ +-------+---+---+ | pantoprazole (PROTONIX) DR | Given | 11/06/19 | 40 mg | | | | tablet 40 mg 40 mg, Oral, DAILY, | | 17 9:40 | | | | | First dose on Tue11/03/16 at | | AM PDT | | | | | 1715 | | | | | | + +-------+ +-------+---+---+ +-------+ +-------+---+---+ | Given | 11/05/19 | 40 mg | | | | | 17 8:11 | | | | | | AM PDT | | | | +-------+ +-------+---+---+ +---+---+ | | | +---+---+ + +-------+ +-------+---+---+ | pantoprazole (PROTONIX) | Given | 11/04/19 | 40 mg | | | | injection 40 mg 40 mg, | | 17 3:36 | | | | | Intravenous, DAILY, First dose on | | PM PDT | | | | | Tue11/03/16 at 1545, Mix each | | | | | | | 40mg vial with 10 mL NS to make 4 | | | | | | | mg/mL., | | | | | | + +-------+ +-------+---+---+ +---+---+ | | | +---+---+ + +-------+ +--------+---+---+ | rOPINIRole (REQUIP) tablet 0.5 | Given | 11/06/19 | 0.5 mg | | | | mg 0.5 mg, Oral, 3 TIMES DAILY, | | 17 9:40 | | | | | First dose on Tue11/03/16 at 2100 | | AM PDT | | | | + +-------+ +--------+---+---+ +-------+ +--------+---+---+ | Given | 11/05/19 | 0.5 mg | | | | | 17 8:55 | | | | | | PM PDT | | | | +-------+ +--------+---+---+ | Given | 11/05/19 | 0.5 mg | | | | | 17 8:08 | | | | | | AM PDT | | | | +-------+ +--------+---+---+ +---+---+ | | | +---+---+ + +---------+ +---+-------+---+ | sodium chloride 0.9% (NS) | New Bag | 11/04/19 | | 100 | | | infusion at 100 mL/hr, | | 17 3:33 | | mL/hr | | | Intravenous, CONTINUOUS, Starting | | PM PDT | | | | | Tue11/03/16 at 1545, For 4 hours | | | | | | + +---------+ +---+-------+---+ +---+---+ | | | +---+---+ + +-------+ +-------+---+---+ | ticagrelor (BRILINTA) tablet 90 | Given | 11/06/19 | 90 mg | | | | mg 90 mg, Oral, 2 TIMES DAILY, | | 17 9:40 | | | | | First dose on Tue11/03/16 at | | AM PDT | | | | | 2100, Do not give if already | | | | | | | taken today., Post-op/Phase II | | | | | | + +-------+ +-------+---+---+ +-------+ +-------+---+---+ | Given | 11/05/19 | 90 mg | | | | | 17 8:56 | | | | | | PM PDT | | | | +-------+ +-------+---+---+ | Given | 11/05/19 | 90 mg | | | | | 17 8:11 | | | | | | AM PDT | | | | +-------+ +-------+---+---+ +---+---+ | | | +---+---+ documented in this encounter
--- OUTSIDE RECORDS SUMMARY | ~2020-03-18 | XMS | Encounter Summary ---
Demographics + + + | Address | [address] | | | [place] [address] | + + + | Home Phone | | + + + | Preferred Language | Unknown | + + + | Marital Status | | + + + | Buddhism Affiliation | Unknown | + + + | Race | White | + + + | Ethnic Group | Not or | + + + Author + + + | Author | [facility] | | | and [place] | + + + | Organization | [facility] | | | and [...] Team Providers + +------+ + | Care Electrician Radio Name | Role | Phone | + +------+ + | Gary Gomez MD | PCP | | + +------+ + Reason for Visit +--------+--------+ + | Reason | Onset | Comments | | | Date | | +--------+--------+ + | Other | 02/18/ | update on status | | | 2017 | | +--------+--------+ + Encounter Details +--------+ + + + + | Date | Type | Department | Care Team | Description | +--------+ + + + + | 02/18/ | Telephone | [facility] | Latonia Olson, | Other (update on | | 2016 | | [address] | MD [address] | status) | | | | [place], | [place] | | | | | [place] [address] | [address] | | | | | [phone] | | | +--------+ + + + [...] this encounter Miscellaneous Notes Telephone Encounter - Kanika Hightower - 02/18/2017 2:04 PM PDTPatient has been scheduled with Dr. Ladd on 02-24-17. [facility] was [facility]. Per patient, Ryann at [facility] is wor kvng on authorization. el ephone Encounter - Diana Wilson RN - 02/18/2017 1:45 PM MIRIAMScott called to report that he had a heart attack on Tuesday, he took nitro X1 and that helped. He did not go to ER or h ospital at all. He was in to see Pricilla in Cardiac rehab today and she was going to send us a note about him getting an appointment. He states that the pain he had on Tuesday was pretty intense and he still does not feel quite right. He was advised that he should come in for an appointment. He states that he has [facility] to see if they can get it [facility]. He goes through [facility]. He asked that we contact Ortizi at [facility], he nish l call back with the number. Meanwhile he is asked to get on the schedule to be seen soon. ...........................................Diana Wilson RN on 02/18/17 at 13:49 documented in this encounter Plan of Treatment Not on filedocumented as of this encounter Visit Diagnoses Not on filedocumented in this encounter"
--- OUTSIDE RECORDS SUMMARY | ~2020-03-18 | XMS | Encounter Summary ---
Demographics + + + | Address | [address] | | | [place] [address] | + + + | Home Phone [...] Team Providers + +------+ + | Care Building Services Coordinator Name | Role | Phone | + +------+ + | Gary Gomez MD | PCP | | + +------+ + Encounter Details +--------+ + + + + | Date | Type | Department | Care Team | Description | +--------+ + + + + | 01/21/ | Orders Only | [facility] | Jarred, Aleksander A, | Status post cervical | | 2015 | | NEUROSURGERY [address] | DO [address] | spinal fusion | | | | [address] | [address] [place], [place] | (Primary Dx) | | | | [place] | [address] | | | | | [address] | | | | | | [phone] | | | +--------+ + + + [...] - Primary Arthrodesis status | + + documented in this encounter"
--- OUTSIDE RECORDS SUMMARY | ~2020-03-18 | XMS | Encounter Summary ---
Demographics + + + | Address | [address] | | | [place] [address] | + + + | Home Phone [...] + + + | Author | [facility] | | | and [place] | + + + | Organization | [facility] | | | [...] Team Providers + +------+ + | Care Mult Au Matic Operator Name | Role | Phone | + [...] Description | +--------+---------+ + + + | 01/24/ | Office | [facility] | Latonia Olson, | ST elevation | | 2017 | Visit | [facility] | MD [address] | myocardial | | | | REHABILITATION [address] | [place] | infarction involving | | | | [address] [place] [place] | [address] | right coronary | | | | [place] [address] | | artery (HCC) | | | | [phone] | | | +--------+---------+ + + + [...] encounter Progress Notes Pricilla Zaldivar RN - 01/24/2017 10:00 AM PDT [facility] [address] [facility] [address] Cardiac Rehab Date: 01/24/2017 Patient Information Patient Name: Jose Raul Palafox Date of : 1960 Age: 56 y.o. Encounter Diagnoses Code Name Primary? 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 Yes Any Changes in Medications? No 01/19/17 gabapentin. Any Problems to Report? No Pain Level: 01/31 leg, T-spine Home exercise: Limited walking due to pain. Denies any adverse symptoms during exercise. Sinus rhythm without ectopy. SBP with an adequate rise during exertion. Compliant with medications, but continues to smoke. Continue monitored exercise. Any abnormal vital signs or rhythm strips will be reported in progress note. Please see vital signs record, exercise record and rhythm strip scanned into media section every . Appointment duration: 60 min Electronically signed by: Pricilla Zaldivar RN, 01/24/2017 11:58 Patient Name: Jose Raul Palafox/: 1960/ signed by Pricilla Zaldivar RN at 01/24/2017 12:00 PM PDTdocumented in this encounter Plan of [...]
--- OUTSIDE RECORDS SUMMARY | ~2020-03-18 | XMS | Encounter Summary ---
Demographics + + + | Address | [address] | | | [place] [address] | + + + | Home Phone | | + + + | Preferred Language | Unknown | + + + | Marital Status | | + + + | Baptism Affiliation | Unknown | + + + | Race | White | + + + | Ethnic Group | Not or | + + + Author + + + | Author | [facility] | | | and [place] | + + + | Organization | [facility] | | [...] Team Providers + +------+ + | Care Packager Head Name | Role | Phone | + +------+ + | Gary Gomez MD | PCP | | + +------+ + Reason for Visit + + + | Reason | Comments | + + + | Pain Management | Preop | + + + Encounter Details +--------+ + + + + | Date | Type | Department | Care Team | Description | +--------+ + + + + | 02/14/ | Documentati | [facility] [place] | [place] [facility]akat | Pain Management | | 2019 | on | [address] Aguayo MD [address] | (Preop) | | | | [address] | [address] [place] | | | | | [place], [place] | [place] [address] | | | | | [address] | [phone] | | | | | [phone] | | | +--------+ + + + [...] documented as of this encounter Progress Notes Qiana Rubin RN - 02/14/2019 2:19 PM PDTPreop MEDD= 30 mg Horace 5-325 mg, 2 tablets TID Multistate SALVAGER query ([facility], [place], [place] selected) resulted in no data on presc riptions dispensed in the past 3 months. Patient reported ongoing chronic pain management by PCP, [place]. [facility] [facility] and spoke with RNLaura for Dr. Gomez. She ran a [place] SALVAGER report (not a multi-state query) that reflected the history of Horace filled (copied below) Tracy Cruz , Steel Shot Header Operator - 02/14/2019 2:19 PM PDT Outpatient Morphine Equivalent Daily Dose (MEDD) 02/14/19 and after 15-30 mg MEDD Order Name [...] screening tool: Total score: 7.67 (02/14/19 1000) doc umented in this encounter Plan of Treatment Not on filedocumented as of this encounter Visit Diagnoses Not on filedocumented in this encounter"
--- OUTSIDE RECORDS SUMMARY | ~2020-03-18 | XMS | Encounter Summary ---
Demographics + + + | Address | [address] | | | [place] [address] | + + + | Home Phone | | + + + | Preferred Language | Unknown | + + + | Marital Status | | + + + | Lutheran Affiliation | Unknown | + + + | Race | White | + + + | Ethnic Group | Not or | + + + Author + + + | Author | [facility] | | | and [place] | + + + | Organization | [facility] | | | and [place] | + + + | Address | Unknown | + + + | Phone | Unavailable | + + + Support + + +---------+ + | Name | Relationship | Address | Phone | + + +---------+ + | Iman Vivienne | ECON | Unknown | | + + +---------+ + Care Team Providers + +------+ + | Care Door Liner Helper Name | Role | Phone | + +------+ + PCP | Unavailable | + +------+ + Encounter Details +--------+ + + + + | Date | Type | Department | Care Team | Description | +--------+ + + + + | 04/13/ | Hospital | [facility] | | | | 2008 | Encounter | [facility] CTR EM[facility] | | | | | | [place] [address] | | | | | | [place] | | | | | | [address] | | | | | | [phone] | | | +--------+ + + + [...]
--- OUTSIDE RECORDS SUMMARY | ~2020-03-18 | XMS | Encounter Summary ---
Demographics + + + | Address | [address] | | | [place] [address] | + + + | Home Phone | | + + + | Preferred Language | Unknown | + + + | Marital Status | | + + + | Gnosticism Affiliation | Unknown | + + + | Race | White | + + + | Ethnic Group | Not or | + + + Author + + + | Author | [facility] | | | and [place] | + + + | Organization | [facility] | | | and [...] Team Providers + +------+ + | Care Record Producer Name | Role | Phone | + +------+ + | Gary Gomez MD | PCP | | + +------+ + Reason for Visit + + + | Reason | Comments | + + + | Therapy Daily | | | Treatment | | + + + Evaluate & Treat (Routine) +--------+--------+ + + + + | Status | Reason | Specialty | Diagnoses / | Referred By | Referred To | | | | | Procedures | Contact | Contact | +--------+--------+ + + + + | Closed | | Rehabilitatio | Diagnoses | Patricia, | Khris | | | | n | Other | Gary | Sami, | | | | | spondylosis | MD Garry | Ja Dempsey, PT | | | | | with | [address] | | | | [address]icul[address] | [address] [place] | | | | | y, lumbar | DRIVE [place] | [place], [place] | | | | | region | [place], [place] | [address] Phone: | | | | | Procedures | [address] | [phone] | | | | | Pt eval | Phone: | Fax: | | | | | | [phone] | [phone] | | | | | | Fax: | | | | | | | [phone] | | +--------+--------+ + + + + Encounter Details +--------+---------+ + + + | Date | Type | Department | Care Team | Description | +--------+---------+ + + + | 10/10/ | Office | [facility] | Khris Gallardo, | Other spondylosis | | 2019 | Visit | [facility] | Ja Dempsey, PT [address] with radiculopathy, | | | | THERAPY [address] [place] | lumbar region | | | | Ave [place], [place] | [place] [address] | | | | | [address] | [phone] | | | | | [phone] | | | +--------+---------+ + + + [...] documented as of this encounter Progress Notes Ja Graham, PT - 10/10/2018 10:00 AM PDTFormatting of this note might be diffe rent from the original. [facility] [address] [place] [address] Physical Therapy Daily Treatment Note Date: 10/10/2018 Patient Information Patient Name: Jose Raul Palafox Date of : 1960 Age: 57 y.o. Encounter Diagnoses Code Name Primary? M47.26 Other spondylosis with radiculopathy, lumbar region Date of Onset: 07/25/1988 Referring Provider: Gary Gomez MD Start Time: 0950 Stop time: 1033 Duration: 43 minutes Timed Treatment Codes: 43 minutes # of PT Visits to Date: 3 Subjective: Bill presents this session with slightly improved symptoms compared to previous session. Doyle chiu saw his primary who ordered an MRI (has not gotten it yet) and gave prescribed him prednis one for the inflammation which he thinks helped slightly. He notes that taking care of his w gilda does result in having to ignore his pain at times and push through it. Pain Assessment: Pain Scale Used: NUMERIC Pain Rating Pre Assessment: 9 Location: right low back/posterior hip Objective: Review/discussion of activities to promote/avoid Pain neuroscience education to facilitate increased tolerance for daily activity with decre ased pain Hook-lying -TrA/multifidus activation training -alternating marches -glut set with gentle posterior pelvic tilt -isometric alternating hip abduction/adduction with manual resistance Supine<>sit and sit<>stand training/education to improve spinal stability throughout functi onal movements Access Code: [email or web address] URL: [email or web address] Date: 09/14/2018 Prepared by: Ja Gallardo Exercises Hooklying Gluteal Sets - 15 reps - 1 sets - 3 hold - 2x daily - 7x weekly Hooklying Clamshell with Resistance - 15 reps - 1 sets - 3 hold - 2x daily - 7x weekly Supine Hip Adduction Isometric with Ball - 15 reps - 1 sets - 3 hold - 2x daily - 7x weekly Assessment: Bill did appear to have very mildly improved symptoms overall this session but again was q uite flared up with poor tolerance for even gentle exercise. Severe pain spikes most often w ith transitional movements. Following pain neuroscience education he did have improved marilyn ance for the subsequent exercise we performed in session and demo'd good understanding of th e concepts. Plan: Will hold further treatment for the time being until he get MRI and updated recommendation from his Dr. Electronically signed by: Ja Gallardo, PT, 10/10/2018 10:48 Patient Name: Jose Raul Khan Viv[place]/: 1960/ documented in this encounter Plan of Treatment Not on filedocumented as of this encounter Visit Diagnoses + + | Diagnosis | + + | Other spondylosis with radiculopathy, lumbar region | + + documented in this encounter"
--- OUTSIDE RECORDS SUMMARY | ~2020-03-18 | XMS | Encounter Summary ---
Demographics + + + | Address | [address] | | | [place] [address] | + + + | Home Phone | | + + + | Preferred Language | Unknown | + + + | Marital Status | | + + + | Taoist Affiliation | Unknown | + + + | Race | White | + + + | Ethnic Group | Not or | + + + Author + + + | Author | [facility] | | | and [place] | + + + | Organization | [facility] | | | [...] Team Providers + +------+ + | Care Precision Lens Grinder Apprentice Name | Role | Phone | + +------+ + | Gary Gomez MD | PCP | | + +------+ + Encounter Details +--------+ + + + + | Date | Type | Department | Care Team | Description | +--------+ + + + + | 11/22/ | Imaging | [facility] | Provider, | | | 2020 | Exam | [facility] | MD [place] [address] | | | | | IMAGING [address] | [address] [place] | | | | | [address] [place] | [place] [address] | | | | | [place] [address] | | | | | | [phone] | | | +--------+ + + + [...] + + + | XR CERVICAL SPINE 6 | Routin | 09/07/2019 | | Results for this | | OR MORE VWS | e | 12:00 AM | | procedure are in the | | | | PST | | results section. | + +--------+ + + + documented in this encounter Results XR Cervical Spine 6 or More Vws (09/07/2019 12:00 AM PST) + + | Specimen | + + | | + + + + + | Narrative | Performed At | + + + | External films for comparison only | [facility] | | | | | No results will be in the chart. | | + + + + +---------+ + + | Performing | Address | City/State/Zipcode | Phone Number | | Organization | | | | + +---------+ + + | [facility] | | | | + +---------+ + + documented in this encounter Visit Diagnoses Not on filedocumented in this encounter"
--- OUTSIDE RECORDS SUMMARY | ~2020-03-18 | XMS | Encounter Summary ---
Demographics + + + | Address | [address] | | | [place] [address] | + + + | Home Phone | | + + + | Preferred Language | Unknown | + + + | Marital Status | | + + + | Druze Affiliation | Unknown | + + + [...] Team Providers + +------+ + | Care Decal Maker Name | Role | Phone | + +------+ + | Gary Gomez MD | PCP | | + +------+ + Reason for Visit Evaluate & Treat (Routine) +--------+ + + + + + | Status | Reason | Specialty | Diagnoses / | Referred By | Referred To | | | | | Procedures | Contact | Contact | +--------+ + + + + + | Closed | Specialty | Physical | Diagnoses | Alexis, | Jameson Espinoza | | | Services | Medicine and | Right leg | Jameson Jewell MD | Santosh Jewell, [address] | | | Required | Rehabilitatio | numbness | [address] | | | | n | Right leg | [address] | [place], | | | | | pain Right | [place], | [place] [address] | | | | | leg weakness | [place] [address] | Phone: | | | | | Right foot | Phone: | [phone] | | | | | drop | [phone] | Fax: | | | | | | Fax: | [phone] | | | | | | [phone] | | +--------+ + + + + + Encounter Details +--------+ + + + + | Date | Type | Department | Care Team | Description | +--------+ + + + + | 04/24/ | Procedure | [facility] | Jameson Espinoza, | Lumbar radiculopathy | | 2013 | visit | PHYSIATRY [address] | (Primary Dx); | | | | [address] | [place], [place] | Lumbalgia; Leg | | | | [place], [place] | [address] | weakness; Leg | | | | [address] | | numbness | | | | [phone] | | | +--------+ + + + [...] of this encounter Patient Instructions Patient Instructions Jameson Espinoza MD - 04/24/2014 4:22 PM PDTToday's nerve study is mo st consistent with Right L5 radiculopathy. Please follow up with your PCP and the neurosurg mac to review the results of today's study and discuss treatment options. Return to the [facility] as needed in the future. documented in this encounter Progress Notes Jameson Espinoza MD - 04/24/2014 4:33 PM PDTFormatting of this note might be different fro m the original. [facility] Physical Medicine & Rehabilitation [address] [place] [address], [address] [place] [address] Test Date: 04/24/2014 Patient Name: Jose Raul Palafox : 1960 Physician: Jameson Espinoza MD () MR #: [id number] Sex: Male Referring Physician: Gary Gomez MD HISTORY: Jose Raul Palafox was last seen by me 01/2013. At that time he had nerve conduction study and EMG of the right upper extremity, which demonstrated chronic right C6 radiculopathy. He re ports that he has not seen the neurosurgeon since his last appointment, which was recommende d. He presents to the clinic today with new symptom and complaint. He now reports that he started having lower extremity symptoms for the last 2-3 years. He reports that hit is much worse over the last year. He reports that symptoms are much worse in the right leg. He re ports that he almost never has symptoms in the left leg. He reports that his right leg pain is a 4 out of 10 on a numerical pain scale. Pain is constant in timing. He describes the quality of his pain as sharp and stabbing. He reports that he also has low back pain. He r eports that he has had low back pain for the last 7 years ago. He reports that his lower ex tremity symptoms are exacerbated by standing or walking too long. He reports that if he sit s for too long his leg will also go numb. He reports that his symptoms are reduced with lyi ng on the floor and elevate his leg. He reports that in both lower extremities the symptoms of pain, and numbness travel over the posterior thigh, the lateral foreleg and into the lat eral ankle. He reports that his feet almost always feel numb. He reports that symptoms in the left leg are rare. He reports that the right lower extremity symptoms are constant in t iming. He reports weakness in both legs, worse in the right leg compared to the left. He d escribes the weakness as his legs wanting to give out on him when he has pain and also repor ts that his right knee won't allow him to stand from a seated position. He reports that he has history of right knee surgery that contributes to his right knee pain and weakness. He denies incontinence of bowel or bladder. He denies saddle anesthesia. He denies taking any blood thinning medications such as Coumadin or heparin. He denies having an implanted elec tronic device such as a pacemaker. He denies a history of diabetes. He has history of thyr oid disease for 20+ years. PHYSICAL EXAM: Sensory reduced in the right lower extremity over the L4 and L5 dermatomes. Strength is no rmal 5/5 in the left lower extremities with hip flexion, knee flexion, knee extension, ankle dorsiflexion, ankle plantar flexion and EHL. There was 4/5 ankle dorsiflexion, knee flexio n and knee extension strength in the right lower extremity. Deep tendon reflexes are 2+ in both upper extremities over the biceps, triceps, and brachioradialis bilaterally. Deep tend on reflexes are 2+ in both lower extremities over the patella and Achilles. Babinski's was down going bilaterally. There was no clonus at either ankle. Gait very antalgic, he ambula frieda with Lofstrand crutches. Nerve Conduction Studies Anti Sensory Summary Table Site NR Peak (ms) Norm Peak (ms) O-P Amp (V) Norm O-P Amp Site1 Site2 Delta-0 (ms) Dist (cm) Joon (m/s) Norm Joon (m/s) Right Sural Anti Sensory (Lat Mall) 24.2C Calf 4.0 <4.0 0.8 >5.0 Calf Lat Mall 3.3 14.0 42 >35 Site 2 4.0 0.4 Site 3 4.0 1.3 Motor Summary Table Site NR Onset (ms) Norm Onset (ms) O-P Amp (mV) Norm O-P Amp Site1 Site2 Delta-0 (ms) Dist (cm) Joon (m/s) Norm Joon (m/s) Left Peroneal Motor (Ext Dig Brev) 24.2C Ankle 4.9 <6.1 5.4 >2.5 B Fib Ankle 9.1 37.0 41 >38 B Fib 14.0 4.8 Poplt B Fib 2.1 9.0 43 >40 Poplt 16.1 4.7 Right Peroneal Motor (Ext Dig Brev) 24C Ankle 4.7 <6.1 3.2 >2.5 B Fib Ankle 9.4 37.0 39 >38 B Fib 14.1 2.9 Poplt B Fib 2.3 10.0 43 >40 Poplt 16.4 2.9 Right Tibial Motor (Abd Jolly Brev) 24.2C Ankle 4.6 <6.1 4.0 >3.0 Knee Ankle 11.8 44.5 38 >35 Knee 16.4 3.1 F Wave Studies NR F-Lat (ms) Lat Norm (ms) L-R F-Lat (ms) L-R Lat Norm Right Peroneal (Mrkrs) (EDB) 24.1C 40.00 <60 <5.1 Right Tibial (Mrkrs) (Abd Hallucis) 24.2C 63.15 <61 <5.7 H Reflex Studies NR H-Lat (ms) L-R H-Lat (ms) L-R Lat Norm Left Tibial (Gastroc) 24.2C 37.48 0.77 <2.0 Right Tibial (Gastroc) 24.2C 38.25 0.77 <2.0 EMG Side Muscle Nerve Root Ins Act Fibs Psw Amp Dur Poly Recrt Int Pat Comment Right GluteusMed SupGluteal L5-S1 Nml Nml Nml Nml Nml Nml Nml Nml Right RectFemoris Femoral L2-4 Nml Nml Nml Nml Nml Nml Nml Nml Right BicepsFemL Sciatic L5-S2 Incr +/- Nml Nml Nml Nml Nml Nml Right VastusMed Femoral L2-4 Nml Nml Nml Nml Nml Nml Nml Nml Right AntTibialis Dp Br Peron L4-5 Incr 1+ 2+ Nml Nml Nml Nml Nml Right PostTibialis Tibial L5, S1 Incr Nml Nml Nml Nml Nml Nml Nml Right Gastroc Tibial S1-2 Nml Nml Nml Nml Nml Nml Nml Nml Nerve Conduction Studies Motor Left/Right Comparison Site L Lat (ms) R Lat (ms) L-R Lat (ms) L Amp (mV) R Amp (mV) L-R Amp (%) Site1 Site2 L Ve l (m/s) R Joon (m/s) L-R Joon (m/s) Peroneal Motor (Ext Dig Brev) 24.2C Ankle 4.9 4.7 0.2 5.4 3.2 40.7 B Fib Ankle 41 39 2 B Fib 14.0 14.1 0.1 4.8 2.9 39.6 Poplt B Fib 43 43 0 Poplt 16.1 16.4 0.3 4.7 2.9 38.3 NCV FINDINGS: Evaluation of the Right sural sensory nerve showed reduced amplitude. All re maining nerves (as indicated in the following tables) were within normal limits. F Wave studies indicate that the Right tibial F wave has prolonged latency. All remaining F Wave latencies were within normal limits. EMG FINDINGS: Needle evaluation of the Right biceps femoris (long head) muscle showed incre ased insertional activity and normal spontaneous activity. The Right anterior tibialis musc le showed increased insertional activity and moderately increased spontaneous activity. The Right posterior tibialis muscle showed increased insertional activity. All remaining muscl es (as indicated in the following table) showed no evidence of electrical instability. IMPRESSION: This is an abnormal nerve conduction study and EMG. Nerve conduction study of the left upper extremity is abnormal. Nerve conduction study of the left lower extremity demonstrated reduced amplitude of the right peroneral and right lavelle al nerve which can most commonly be seen in lumbar radiculopathy. There was no evidence of tibial neuropathy in the right lower extremity. There was no evidence of peripheral neuropa thy seen in the right lower extremity. There was no evidence of focal peroneral neuropathy at the right fibular head. Needle EMG of the right lower extremity was abnormal. Needle EMG of the right lower extrem ity does not meet the absolute diagnostic criteria for lumbar radiculopathy; however the abn ormalities are consistent with probable right L5 radiculopathy. Mr. Palafox s clinical pre sentation is most consistent with right L5 radiculopathy. DISCUSSION: Mr. Palafox demonstrated fair tolerance to nerve conduction study and EMG of the right lower extremity and limited comparison nerve study of the left lower extremity. He was able to c omplete the study. He exhibited significant pain, including grunting and facial grimace whe never he had to rollover on the exam table. As noted above, this study demonstrates findings consistent with probable right L5 radiculo ruby. Mr. Palafox s clinical presentation and physical exam are also most consistent with right L5 radiculopathy. He has appointment later this month at the [facility] neurosurge ry department. He was advised to follow up with his PCP and the neurosurgeon to discuss the next steps in treating his symptoms. He may return to the clinic as needed in the future. Thank you for allowing me to be involved in the care of your patient. If you have any quest ions or comments, please do not hesitate to call. Jameson Espinoza MD (Jr.) Physical Medicine and Rehabilitation Cc: Gary Gomez MD documented in this encounter Plan of Treatment Not on filedocumented as of this encounter Visit Diagnoses + + | Diagnosis | + + | Lumbar radiculopathy - Primary Thoracic or lumbosacral neuritis or radiculitis, | | unspecified | + + | Lumbalgia Lumbago | + + | Leg weakness Other musculoskeletal symptoms referable to limbs | + + | Leg numbness Disturbance of skin sensation | + + documented in this encounter"
--- OUTSIDE RECORDS SUMMARY | ~2020-03-18 | XMS | Encounter Summary ---
Demographics + + + | Address | [address] | | | [place] [address] | + + + | Home Phone | | + + + | Preferred Language | Unknown | + + + | Marital Status | | + + + | Sabianism Affiliation | Unknown | + + + | Race | White | + + + | Ethnic Group | Not or | + + + Author + + + | Author | [facility] | | | and [place] | + + + | Organization | [facility] | | | and [...] Team Providers + +------+ + | Care Geospatial Image Analyst Name | Role | Phone | + +------+ + PCP | Unavailable | + +------+ + Encounter Details +--------+ + + + + | Date | Type | Department | Care Team | Description | +--------+ + + + + | 12/16/ | Hospital | [facility] | | | | 2001 | Encounter | MED CTR XRAY [address] | | | | | | [place] | | | | | | [place] [address] | | | | | | [phone] | | | +--------+ + + + [...]
--- OUTSIDE RECORDS SUMMARY | ~2020-03-18 | XMS | Encounter Summary ---
Demographics + + + | Address | [address] | | | [place] [address] | + + + | Home Phone [...] + + + | Author | [facility] | | | and [place] | + + + | Organization | [facility] | | | and [...] Team Providers + +------+ + | Care Real Estate Manager Name | Role | Phone | [...] Description | +--------+---------+ + + + | 03/23/ | Office | [facility] | [place], | ST elevation | | 2017 | Visit | MED CTR CARDIAC | MD [address] | myocardial | | | | REHABILITATION [address] | [place] | infarction involving | | | | [address] [place] | [address] | right coronary | | | | [place] [address] | | artery (HCC) | | | | [phone] | | | +--------+---------+ + + + [...] encounter Progress Notes Pricilla Zaldivar RN - 03/23/2017 12:45 PM PDT [facility] [address] [facility] [address] Cardiac Rehab Date: 03/23/2017 Patient Information Patient Name: Jose Raul Palafox Date of : 1960 Age: 56 y.o. Encounter Diagnoses Code Name Primary? 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 Yes Any Changes in Medications? No 01/19/17 gabapentin. Any Problems to Report? No 03/16/17 it is very smokey in [place], he had been short of sergio ath. 03/18/17 started on prednisone and abx. Breathing much better. Pain Level: 9 leg, T-spine, neck Home exercise: Limited walking due to pain. Denies any adverse symptoms during exercise. No anginal symptoms. Sinus rhythm without ectopy-no ST segment changes. SBP with an appropriate rise during exer tion. SpO2 95% on room air during exertion. Compliant with medications, Quit Smoking!. Continue monitored exercise. Any abnormal vital signs or rhythm strips will be reported in progress note. Please see vital signs record, exercise record and rhythm strip scanned into media section every . Appointment duration: 60 min Electronically signed by: Pricilla Zaldivar RN, 03/23/2017 12:11 Patient Name: Jose Raul Palafox/: 1960/ signed by Pricilla Zaldivar RN at 03/23/2017 12:12 PM PDTdocumented in this encounter Plan of Treatment Not on filedocumented as of this encounter Visit Diagnoses + + | Diagnosis | + + | ST elevation myocardial infarction involving right coronary artery (HCC) Acute | | myocardial infarction of inferoposterior wall, initial episode of care | + + documented in this encounter"
--- OUTSIDE RECORDS SUMMARY | ~2020-03-18 | XMS | Encounter Summary ---
Demographics + + + | Address | [address] | | | [place] [address] | + + + | Home Phone | | + + + | Preferred Language | Unknown | + + + | Marital Status | | + + + | Hinduism Affiliation | Unknown | + + + [...] Team Providers + +------+ + | Care Assistant Winemaker Name | Role | Phone | + [...] Description | +--------+---------+ + + + | 04/01/ | Office | [facility] | [place], | ST elevation | | 2017 | Visit | MED CTR CARDIAC | MD [address] | myocardial | | | | REHABILITATION [address] | [place] | infarction involving | | | | [address] | [address] | right coronary | | | | [place] [address] | | artery (HCC) | | | | [phone] | | | +--------+---------+ + + + [...] encounter Progress Notes Pricilla Zaldivar RN - 04/01/2017 12:45 PM PDT [facility] C[facility]AC RE[facility]ABILITATION [address] [facility] [address] Cardiac Rehab Date: 04/01/2017 Patient Information Patient Name: Jose Raul Palafox Date of : 1960 Age: 56 y.o. Encounter Diagnoses Code Name Primary? 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 Yes Any Changes in Medications? No 01/19/17 gabapentin. Any Problems to Report? No 03/30/17 it is very smokey in [place], he had been short of yojana . 03/18/17 started on prednisone and abx. Pain Level: 01/31 leg, T-spine, neck Home exercise: Limited walking due to pain. Denies any adverse symptoms during exercise. No anginal symptoms. Sinus rhythm without ectopy-no ST segment changes. SBP with an appropriate rise during exer tion. SpO2 96% on room air during exertion. Compliant with medications, Quit Smoking!. Continue monitored exercise. Any abnormal vital signs or rhythm strips will be reported in progress note. Please see vital signs record, exercise record and rhythm strip scanned into media section every . Appointment duration: 60 min Electronically signed by: Pricilla Zaldivar RN, 04/01/2017 11:55 Patient Name: Jose Raul Palafox/: 1960/ signed by Pricilla Zaldivar RN at 04/01/2017 11:57 AM PDTdocumented in this encounter Plan of Treatment Not on filedocumented as of this encounter Visit Diagnoses + + | Diagnosis | + + | ST elevation myocardial infarction involving right coronary artery (HCC) Acute | | myocardial infarction of inferoposterior wall, initial episode of care | + + documented in this encounter"
--- OUTSIDE RECORDS SUMMARY | ~2020-03-18 | XMS | Encounter Summary ---
Demographics + + + | Address | [address] | | | [place] [address] | + + + | Home Phone | | + + + | Preferred Language | Unknown | + + + | Marital Status | | + + + | Amish Affiliation | Unknown | + + + | Race | White | + + + | Ethnic Group | Not or | + + + Author + + + | Author | [facility] | | | and [place] | + + + | Organization | [facility] | | | and [...] Team Providers + +------+ + | Care Tree Cutter Name | Role | Phone | + [...] Description | +--------+---------+ + + + | 03/14/ | Office | [facility] | [place], | ST elevation | | 2017 | Visit | MED CTR CARDIAC | MD [address] | myocardial | | | | REHABILITATION [address] | [place] | infarction involving | | | | [address] [place] | [address] | right coronary | | | | [place] [address] | | artery (HCC) | | | | [phone] | | | +--------+---------+ + + + [...] + documented as of this encounter Progress Raymundo Padilla - 03/14/2017 11:45 AM PDT [facility] C[facility]IAC REHABILITATION [address] [place] [address] Cardiac Rehab Date: 03/14/2017 Patient Information Patient Name: Jose Raul Palafox [...] an appropriate rise during exer tion. SpO2 93% on room air. Compliant with medications, Quit Smoking!. Continue monitored exercise. Any abnormal vital signs or rhythm strips will be reported in progress note. Please see vital signs record, exercise record and rhythm strip scanned into media section every . Appointment duration: 60 min Electronically signed by: Raymundo Henriquez, 03/14/2017 16:35 Patient Name: Jose Raul Palafox/: 1960/ signed by Raymundo Henriquez at 03/14/2017 4:36 PM PDTdocumented in this encounter Plan of Treatment Not on filedocumented as of this encounter Visit Diagnoses + + | Diagnosis | + + | ST elevation myocardial infarction involving right coronary artery (HCC) Acute | | myocardial infarction of inferoposterior wall, initial episode of care | + + documented in this encounter"
--- OUTSIDE RECORDS SUMMARY | ~2020-03-18 | XMS | Encounter Summary ---
Demographics + + + | Address | [address] | | | [place] [address] | + + + | Home Phone | | + + + | Preferred Language | Unknown | + + + | Marital Status | | + + + | Protestant Affiliation | Unknown | + + + | Race | White | + + + | Ethnic Group | Not or | + + + Author + + + | Author | [facility] | | | and [place] | + + + | Organization | [facility] | | [...] Team Providers + +------+ + | Care [address] Judge Name | Role | Phone | + [...] | | | | and/or Inj | [place] [address] | | | | | | Major Joint | Phone: | | | | | | Right | [phone] | | | | | | | Fax: | | | | | | | [phone] | | +--------+--------+ + + + + Reason for Visit Auth/Cert +--------+--------+ + [...] | +--------+ + + + + | 01/08/ | [facility] | [facility] | Hussein Padron | Other spondylosis | | 2019 | Encounter | MED CTR XRAY [address] | [address], [address] | with radiculopathy, | | | | [place] | [address] [place] | lumbar region; | | | | [place] [address] | [id number] | Lumbar radiculopathy | | | | [phone] | | | | | | | Continuity WriterTisha | | | | | | [place] | | +--------+ + + + + [...] this encounter Last Filed Vital Signs + +---------+ + + | Vital Sign | Reading | Time Taken | Comments | + +---------+ + + | Blood Pressure | 117/76 | 01/08/2019 2:00 PM | | | | | PDT | | + +---------+ + + | Pulse | 82 | 01/08/2019 2:00 PM | | | | | PDT | | + +---------+ + + | Temperature | - | - | | + +---------+ + + | Respiratory Rate | - | - | | + +---------+ + + | Oxygen Saturation | - | - | | + +---------+ + + | Inhaled Oxygen | - | - | | | Concentration | | | | + +---------+ + + | Weight | - | - | | + +---------+ + + | Height | - | - | | + +---------+ + + | Body Mass Index | - | - | | + +---------+ + + documented in this encounter Functional [...] tablet by | 90 | 3 | // | | | (EFFIENT) 10 mg TABS [...] + + + +---------+ + + | predniSONE | Take 40 mg by mouth | | 0 | | | | (DELTASONE) 20 mg | every morning. | | | | 9 | | tablet | | | | | | + + + +---------+ + + documented as of this encounter Plan of Treatment Not on filedocumented as of this encounter Procedures + +--------+ + + + | Procedure Name | Priori | Date/Time | Associated Diagnosis | Comments | | | ty | | | | + +--------+ + + + | FL ASPIRATION | Routin | 01/08/2019 | Lumbar | Results for this | | INJECTION MAJOR | e | 1:42 PM | radiculopathy | procedure are in the | | JOINT RIGHT | | PDT | | results section. | + +--------+ + + + | FL EPIDURAL STEROID | Routin | 01/08/2019 | Other spondylosis | Results for this | | INJECTION LUMBAR | e | 1:42 PM | with radiculopathy, | procedure are in the | | TRANSFORAMINAL | | PDT | lumbar region | results section. | | | | | Lumbar radiculopathy | | + +--------+ + + + documented in this encounter Results FL Asp and/or Inj [...] + + | Performing | Address | City/[facility] | Phone Number | | Organization | | | | + +---------+ + + | [facility] | | | | + +---------+ + + [place] MARY Lumbar Transforaminal (01/08/2019 1:42 PM PDT) + + | Specimen | + + | | + + + + + | Narrative | Performed At | + + + | 01/08/2019 | [facility] | | Transforaminal Epidural Steroid InjectionDiagnosis: Lumbar | | | radiculopathyICD-10 Code M54.16 Jose Raul Palaf[place] presents to the | | | fluoroscopy suite for a fluoroscopically-guided right L5-S1 | | | transforaminal epidural steroid injection as part of conservative | | | management for chronic pain with lumbar radiculopathy and degenerative | | | disc disease. After informed consent was obtained, the patient lay | | | in the prone position on the fluoroscopy table. The area was | | | identified under fluoroscopic guidance. The area was prepped and | | | draped in sterile fashion. A 25-gauge, 1.5-inch needle was inserted | | | into this region and approximately 3 mL of buffered 1% lidocaine was | | | infused. Then, a 22-gauge spinal needle was inserted into the | | | posterior superior transforaminal space and advanced into the epidural | | | space under fluoroscopic guidance. Confirmation into the epidural | | | space was obtained with infusion of approximately 1 mL of Omnipaque | | | contrast which showed epidural flow as well as nerve sheath flow. | | | Then, a combination of 1.5 mL of 1% lidocaine and 1 mL of 10 | | | mg/mL Dexamethasone was infused. The patient tolerated the procedure | | | well without complications. Pre- and post-procedure blood pressures | | | were stable. The patient was given verbal as well as written | | | follow-up instructions. Prior to the start of the procedure, the | | | following were performed and/or verified, including correct patient | | | identity, correct site/side marked and visible, agreement on the | | | procedure to be done, correct patient positioning and an accurate | | | procedure consent form. Any safety precautions based on clinical | | | history and/or medication use have been addressed. I personally | | | performed the procedure above. Estimated blood loss: | | | MinimalComplications: NoneFindings: As expectedAnesthesia: Local | | | 1% Lidocaine | | |addressed. | | |I personally performed the procedure [...] radiculopathy, lumbar region | + + | Lumbar radiculopathy Thoracic or lumbosacral neuritis or radiculitis, unspecified | + + documented in this encounter Administered Medications + +--------+ +-------+------+------+ | Medication Order | MAR | Action | Dose | Rate | Site | | | Action | Date | | | | + +--------+ +-------+------+------+ | dexamethasone (PF) 10 mg/mL | Given | 01/09/20 | 10 mg | | | | injection 10 mg 10 mg, Other, | | 19 2:12 | | | | | ONCE, Tue01/08/19 at 1400, For 1 | | PM PDT | | | | | dose, When ordered IV push: | | | | | | | Dilute to 10-20 mL with NS and | | | | | | | give slowly over 1-2 minutes., | | | | | | + +--------+ +-------+------+------+ +---+---+ | | | +---+---+ + +-------+ +-------+---+---+ | iohexol (OMNIPAQUE 300) 300 | Given | 01/09/20 | 3 mLs | | | | mg/mL injection 3 mL 3 mL, | | 19 2:09 | | | | | EPIDURAL, ONCE, Tue01/08/19 at | | PM PDT | | | | | 1400, For 1 dose | | | | | | + +-------+ +-------+---+---+ +---+---+ | | | +---+---+ + +-------+ +-------+---+---+ | lidocaine (PF) 1% injection 2 | Given | 01/09/20 | 4 mLs | | | | mL 2 mL, Other, ONCE, Mon | | 19 2:12 | | | | | 01/08/19 at 1400, For 1 dose | | PM PDT | | | | + +-------+ +-------+---+---+ +---+---+ | | | +---+---+ + +-------+ +-------+---+ + | lidocaine buffered 0.9% | Given | 01/09/20 | 6 mLs | | Other | | injection 6 mL 6 mL, | | 19 2:06 | | | (Comment | | Intradermal, ONCE, 01/08/19 at | | PM PDT | | | ) | | 1400, For 1 dose | | | | | | + +-------+ +-------+---+ + +---+---+ | | | +---+---+ + +-------+ +-------+---+---+ | triamcinolone acetonide | Given | 01/09/20 | 40 mg | | | | (KENALOG-40) 40 mg/mL injection | | 19 2:16 | | | | | 40 mg 40 mg, Intra-articular, | | PM PDT | | | | | ONCE, 01/08/19 at 1400, For 1 | | | | | | | dose, Shake well. Not for IV | | | | | | | use., | | | | | | + +-------+ +-------+---+---+ +---+---+ | | | +---+---+ documented in this encounter"
--- OUTSIDE RECORDS SUMMARY | ~2020-03-18 | XMS | Clinical Summary ---
Demographics + + + | Address | [address] | | | [place] [address] | + + + | Home Phone | | + + + | Preferred Language | Unknown | + + + | Marital Status | | + + + | Buddhism Affiliation | Unknown | + + + | Race | White | + + + | Ethnic Group | Not or | + + + Author + + + | Author | [facility] | | | and [place] | + + + | Organization | [facility] | | | [...] Team Providers + +------+ + | Care Gang Head Saw Operator Name | Role | Phone | + +------+ + | Gary Gomez MD | PCP | | + +------+ + Allergies + + + + + + | Active Allergy | Reactions | Severity | Noted | Comments | | | | | Date | | + + + + + + | Adhesive & Tape | Rash | Low | 01/01/20 | | | | | | 15 | | + + + + + + | Albuterol | Anxiety | Low | 01/08/20 | Caused severe | | | | | 15 | anxiety. | + + + + + + | Aspirin | Other (See Comments) | Low | 02/10/20 | Ulceration of | | | | | 06 | stomach | + + + + + + | Doxycycline | Anaphylaxis, Nausea | High | 11/04/19 | Throat swelling, | | | Only, Swelling, | | 01 | HTN | | | Dermatitis, | | | | | | Headache, Unknown | | | | + + + + + + | Latex | Itching, Rash | Low | 12/23/19 | | | | | | 17 | | + + + + + + Medications + + + +---------+------+------+-------+ | Medication | Sig | Dispensed | Refills | Star | End | Statu | | | | | | t | Date | s | | | | | | Date | | | + + + +---------+------+------+-------+ | omeprazole | Take 20 mg by mouth | | 0 | | | Activ | | (PRILOSEC) 20 mg | 2 times daily. | | | | | e | | capsule | | | | | | | + + + +---------+------+------+-------+ | rOPINIRole | Take 0.5 mg by mouth | | 0 | | | Activ | | (REQUIP) 0.5 MG | nightly as needed | | | | | e | | tablet | (restless leg). | | | | | | + + + +---------+------+------+-------+ | famotidine | Take 20 mg by mouth | | 0 | | | Activ | | (PEPCID) 20 mg | 2 times daily. | | | | | e | | tablet | | | | | | | + + + +---------+------+------+-------+ | | Inhale 1 puff into | | 0 | | | Activ | | fluticasone-salmeter | the lungs Twice | | | | | e | | ol (ADVAIR) 500-50 | Daily. | | | | | | | mcg/puff diskus | | | | | | | | inhaler | | | | | | | + + + +---------+------+------+-------+ | ipratropium | Inhale 2 puffs into | | 0 | | | Activ | | (ATROVENT HFA) 17 | the lungs 4 times | | | | | e | | mcg/puff inhaler | daily. | | | | | | + + + +---------+------+------+-------+ | levothyroxine | Take 175 mcg by | | 0 | | | Activ | | (SYNTHROID, | mouth every morning | | | | | e | | LEVOTHROID) 175 MCG | (before breakfast). | | | | | | | tablet | | | | | | | + + + +---------+------+------+-------+ | levalbuterol | Take 1 ampule by | | 0 | | | Activ | | (XOPENEX) 1.25 mg/3 | nebulization 3 times | | | | | e | | mL nebulizer | daily. | | | | | | | solution | | | | | | | + + + +---------+------+------+-------+ | levalbuterol | Inhale 1 puff into | | 0 | | | Activ | | (XOPENEX HFA) 45 | the lungs EVERY 4 TO | | | | | e | | mcg/puff inhaler | 6 HOURS NEEDED | | | | | | | | for Wheezing. | | | | | | + + + +---------+------+------+-------+ | nitroglycerin | Place 1 tablet under | 25 | 1 | 04/1 | | Activ | | (NITROSTAT) 0.4 mg | the tongue every 5 | tablet | | 4/20 | | e | | SL tablet | minutes as needed | | | 17 | | | | | for Chest pain. | | | | | | + + + +---------+------+------+-------+ | atorvaSTATin | Take 1 tablet by | 30 | 11 | 04 | | Activ | | (LIPITOR) 80 MG | mouth nightly. Do | tablet | | 4/20 | | e | | tablet | not take for a week | | | 17 | | | + + + +---------+------+------+-------+ | oxygen | Inhale 2 L into the | | 0 | | | Activ | | | lungs continuous. | | | | | e | + + + +---------+------+------+-------+ | prasugrel | Take 1 tablet by | 90 | 3 | 06/ | | Activ | | (EFFIENT) 10 mg TABS | mouth Daily. | tablet | | 0/20 | | e | | | | | | 17 | | | + + + +---------+------+------+-------+ | montelukast | Take 10 mg by mouth | | 0 | | | Activ | | (SINGULAIR) 10 mg | Daily. | | | | | e | | tablet | | | | | | | + + + +---------+------+------+-------+ | triamcinolone | Apply topically 2 | | 0 | | | Activ | | (KENALOG) 0.1% cream | times daily. | | | | | e | + + + +---------+------+------+-------+ | DULoxetine | Take 60 mg by mouth | | 0 | | | Activ | | (CYMBALTA) [address] | nightly. | | | | | e | | capsule | | | | | | | + + + +---------+------+------+-------+ | guaiFENesin | Take 600 mg by mouth | | 0 | | | Activ | | (MUCINEX) 600 mg 12 | 2 times daily. | | | | | e | | hr tablet | | | | | | | + + + +---------+------+------+-------+ | isosorbide | Take 30 mg by mouth | | 0 | | | Activ | | mononitrate 60 mg ER | every morning. | | | | | e | | tablet | | | | | | | + + + +---------+------+------+-------+ | medical marijuana | as needed (to | | 0 | | | Activ | | (CANNABIS) | sleep). | | | | | e | + + + +---------+------+------+-------+ | metoprolol | Take 1 tablet by | 90 | 3 | 07/ | | Activ | | tartrate (LOPRESSOR) | mouth 2 times daily. | tablet | | 03/13 | | e | | 100 mg tablet | | | | 19 | | | + + + +---------+------+------+-------+ | | Take 1-2 tablets by | | 0 | | | Activ | | HYDROcodone-acetamin | mouth 3 times daily | | | | | e | | ophen (NORCO) 5-325 | as needed for Pain. | | | | | | | mg per tablet | | | | | | | + + + +---------+------+------+-------+ | aspirin 81 MG | Take 81 mg by mouth | | 0 | | | Activ | | tablet | Daily. | | | | | e | + + + +---------+------+------+-------+ | buPROPion | Take 150 mg by mouth | | 0 | | | Activ | | (WELLBUTRIN SR) 150 | 2 times daily. | | | | | e | | mg 12 hr tablet | | | | | | | + + + +---------+------+------+-------+ | busPIRone (BUSPAR) | Take 15 mg by mouth | | 0 | | | Activ | | 10 MG tablet | Twice daily as | | | | | e | | | needed for Anxiety. | | | | | | + + + +---------+------+------+-------+ | cyclobenzaprine | Take 10 mg by mouth | | 0 | | | Activ | | (FLEXERIL) 10 mg | Twice daily as | | | | | e | | tablet | needed for Muscle | | | | | | | | spasms. | | | | | | + + + +---------+------+------+-------+ | nicotine | CHEW 1 PIECE BY | | 0 | | | Activ | | (NICORETTE) 2 mg gum | MOUTH EVERY ONE TO | | | | | e | | | TWO HOURS NEEDED | | | | | | | | FOR 6 WEEKS, THEN | | | | | | | | CHEW 1 PIECE EVERY | | | | | | | | TWO TO FOUR HOURS | | | | | | | | FOR 3 WEEKS, THEN | | | | | | | | CHEW 1 PIECE EVERY | | | | | | | | FOUR TO EIGHT HOURS | | | | | | | | FOR 3 WEEKS | | | | | | | | DIRECTED, CHEW AND | | | | | | | | HOLD IN CHEEK PER | | | | | | | | PACKAGE USER'S GUIDE | | | | | | | | INSTRUCTIONS | | | | | | + + + +---------+------+------+-------+ | pregabalin | Take 50 mg by mouth | | 0 | | | Activ | | (LYRICA) 50 MG | 3 times daily. | | | | | e | | capsule | | | | | | | + + + +---------+------+------+-------+ Active Problems + + + | Problem | Noted Date | + + + | Allergic rhinitis | 11/21/2019 | + + + | Peptic ulcer without hemorrhage, perforation, or obstruction | 11/21/2019 | + + + | Lumbar radiculopathy | 11/21/2019 | + + + | Neurogenic claudication | 02/06/2019 | + + + + + | Overview: Added automatically from request for surgery | | [id number] | + + + + + | Osteoarthritis of spine with radiculopathy, lumbar region | 02/06/2019 | + + + + + | Overview: Added automatically from request for surgery | | [id number] | + + + + + | Low back pain, unspecified back pain laterality, unspecified | 02/06/2019 | | chronicity, with sciatica presence unspecified | | + + + + + | Overview: Added automatically from request for surgery | | [id number] List Paleology Professor Utility | + + + + + | Acute bronchitis | 01/04/2019 | + + + | Acute cholecystitis | 01/04/2019 | + + + | Arthralgia of lower leg | 01/04/2019 | + + + | Benign essential hypertension | 01/04/2019 | + + + | Tinnitus | 01/04/2019 | + + + | Brachial neuritis | 01/04/2019 | + + + | Burn injury | 01/04/2019 | + + + | Current tear of medial cartilage or meniscus of knee | 01/04/2019 | + + + | Dermatitis due to drug taken internally | 01/04/2019 | + + + | Disturbance of salivary secretion | 01/04/2019 | + + + | Encounter for issue of repeat prescription | 01/04/2019 | + + + | Other and unspecified noninfectious gastroenteritis and colitis | 01/04/2019 | + + + | Cervicalgia | 01/04/2019 | + + + | Hemorrhage of rectum and anus | 01/04/2019 | + + + | Herniation of intervertebral disc without myelopathy | 01/04/2019 | + + + | Steatosis of liver | 01/04/2019 | + + + | Loose body of knee | 01/04/2019 | + + + | Low back pain | 01/04/2019 | + + + | Nuclear senile cataract | 01/04/2019 | + + + | Peptic ulcer | 01/04/2019 | + + + | Retinal drusen | 01/04/2019 | + + + | Sciatica | 01/04/2019 | + + + | Sensorineural hearing loss, bilateral | 01/04/2019 | + + + | Thoracic or lumbosacral neuritis or radiculitis | 01/04/2019 | + + + | Other spondylosis with radiculopathy, lumbar region | 09/14/2018 | + + + | STEMI (ST elevation myocardial infarction) | 01/05/2017 | + + + | ST elevation myocardial infarction involving right coronary | 01/05/2017 | | artery | | + + + | Unstable angina | 12/23/2016 | + + + | NSTEMI, initial episode of care | 11/05/2016 | + + + | Postmyocardial infarction syndrome | 11/05/2016 | + + + | Bilateral arm pain | 08/22/2016 | + + + | Thoracic radiculopathy | 08/17/2016 | + + + | S/P cervical spinal fusion | 01/21/2015 | + + + | Diverticular disease of colon | 01/22/2014 | + + + | Polyp of colon | 01/22/2014 | + + + | Hepatitis C | | + + + | Restless leg syndrome | | + + + | COPD (chronic obstructive pulmonary disease) | | + + + | Asthma | | + + + | Hypothyroidism | | + + + | Hyperlipidemia | | + + + | Diverticulitis | | + + + | Hernia, hiatal | | + + + | Anxiety | | + + + | Emphysema of lung | | + + + | Hypertension | | + + + | Migraine | | + + + | Neuropathy | | + + + | Tobacco user | | + + + | CAD in tuscarora artery | | + + + + + | Overview: Nuclear stress test 12/16/2016: Persantine EKG is | | negative. Abnormal Persantine Sestamibi myocardial perfusion | | study with a medium-sized, fixed defect of a moderate severity of | | the mid inferior and distal inferior and apex. This suggests a | | potential myocardial scar of the right coronary artery | | territories. Although, inferior wall soft tissue attenuation | | cannot be completely ruled out. Gated SPECT reveals a normal left | | ventricular wall thickness and motion. Preserved left | | ventricular systolic function. LVEF by gated SPECT is 56 %. | + + Immunizations + + + + | Name | Administration Dates | Next Due | + + + + | HEP A, 2 DOSE | 03/02/2011 | | | (ADULT) | | | + + + + | HEP A/HEP B, 3 DOSE | 08/26/2011 | | | (ADULT) | | | + + + + | HEP B, 3 DOSE | 03/30/2011, 03/02/2011 | | | (ADULT) | | | + + + + | INFLUENZA 63 Y OR >, | 04/05/2017 | | | TRIVALENT HIGH-DOSE | | | + + + + | INFLUENZA PF 63 Y OR | 05/14/2019, 04/27/2018 | | | >,TRIVALENT (FLUAD) | | | + + + + | INFLUENZA PF | 04/21/2015, 05/03/2013 | | | TRIVALENT(PED/ADOL/A | | | | JOSE ANTONIO)NIKKYKT | | | + + + + | INFLUENZA, [id number], | 07/08/2009 | | | UNSPECIFIED | | | + + + + | INFLUENZA, | 04/30/2014, 05/23/2012, 04/06/2011, | | | UNSPECIFIED | 05/03/2009, 05/01/2009, 05/25/2008, | | | FORMULATION | 08/25/2007, 05/15/2004 | | + + + + | PNEUMOCOCCAL | 04/05/2017 | | | CONJUGATE 13-VALENT | | | | (PCV13) | | | + + + + | TD, UNSPECIFIED | 07/24/2018 | | | FORMULATION | | | + + + + | TDAP, (ADOL/ADULT) | 03/30/2011 | | + + + + Family History + + +-------+ + | Medical History | Relation | Name | Comments | + + +-------+ + | Heart attack | Brother | | | + + +-------+ + | Heart attack | Brother | | | + + +-------+ + | No known problems | Child | | | + + +-------+ + | No known problems | Child | | | + + +-------+ + | No known problems | Child | | | + + +-------+ + | No known problems | Child | | | + + +-------+ + | Arthritis | Father | | | + + +-------+ + | Asthma | Father | | | + + +-------+ + | Diabetes | Father | | | + + +-------+ + | Emphysema | Father | | | + + +-------+ + | Heart attack | Father | | | + + +-------+ + | Heart disease | Father | | | + + +-------+ + | Heart failure | Father | | | + + +-------+ + | Thyroid disease | Father | | goiter | + + +-------+ + | Heart failure | Maternal | | | | | Aunt | | | + + +-------+ + | Diabetes | Maternal | | | | | Grandfath | | | | | er | | | + + +-------+ + | Heart attack | Maternal | | | | | Grandfath | | | | | er | | | + + +-------+ + | Hypertension | Maternal | | | | | Grandfath | | | | | er | | | + + +-------+ + | Hypertension | Maternal | | | | | Grandmoth | | | | | er | | | + + +-------+ + | Alcohol abuse | Maternal | | | | | Uncle | | | + + +-------+ + | Heart attack | Maternal | | | | | Uncle | | | + + +-------+ + | Heart disease | Maternal | | | | | Uncle | | | + + +-------+ + | Hypertension | Maternal | | | | | Uncle | | | + + +-------+ + | Arthritis | Mother | Rubi | | + + +-------+ + | Bleeding problems | Mother | Rubi | | + + +-------+ + | Coronary artery | Mother | Rubi | | | disease | | | | + + +-------+ + | Diabetes | Mother | Rubi | | + + +-------+ + | Gout | Mother | Rubi | | + + +-------+ + | Heart disease | Mother | Rubi | | + + +-------+ + | Heart failure | Mother | Rubi | | + + +-------+ + | Hypertension | Mother | Rubi | | + + +-------+ + | Other (see comment) | Mother | Rubi | lung prob | + + +-------+ + | Diabetes | Paternal | | | | | Aunt | | | + + +-------+ + | Early | Paternal | | | | | Aunt | | | + + +-------+ + | Hypertension | Paternal | | | | | Aunt | | | + + +-------+ + | Seizures | Paternal | | | | | Aunt | | | + + +-------+ + | Arthritis | Paternal | | | | | Grandfath | | | | | er | | | + + +-------+ + | Arthritis | Paternal | | | | | Grandmoth | | | | | er | | | + + +-------+ + | Crohn's disease | Sister | | | + + +-------+ + | Heart failure | Sister | | | + + +-------+ + | Allergic rhinitis | Sister | | | + + +-------+ + | Asthma | Sister | | | + + +-------+ + | Crohn's disease | Sister | | | + + +-------+ + | Heart disease | Sister | | | + + +-------+ + | Other (see comment) | Sister | | lung prob | + + +-------+ + | Thyroid disease | Sister | | | + + +-------+ + | Diabetes | Sister | | | + + +-------+ + | Elevated lipids | Sister | | | + + +-------+ + | Hypertension | Sister | | | + + +-------+ + | Liver disease | Sister | | | + + +-------+ + | Other (see comment) | Sister | | seasonal affective disorder | + + +-------+ + | PTSD | Sister | | | + + +-------+ + | Sleep apnea | Sister | | | + + +-------+ + | Asthma | Sister | | | + + +-------+ + | GERD | Sister | | | + + +-------+ + | Heart failure | Sister | | | + + +-------+ + | Other (see comment) | Sister | | sjorgren's syndrome, Diverticulosis, | | | | | Myasthenia Gravis | + + +-------+ + + +-------+ + + | Relation | Name | Status | Comments | + +-------+ + + | Brother | | | | + +-------+ + + | Brother | | | | + +-------+ + + | Child | | Alive | | + +-------+ + + | Child | | Alive | | + +-------+ + + | Child | | | | + +-------+ + + | Child | | | | + +-------+ + + | Father | | | Congestive Heart Failure | | | | (Age | | | | | 59) | | + +-------+ + + | Maternal Aunt | | | | + +-------+ + + | Maternal Grandfather | | | [place] | | | | (Age | | | | | 55) | | + +-------+ + + | Maternal Grandmother | | | Natural causes | + +-------+ + + | Maternal Uncle | | | [place] | + +-------+ + + | Mother | Rubi | | Congestive Heart Failure | | | | (Age | | | | | 76) | | + +-------+ + + | Paternal Aunt | | | | | | | (Age | | | | | 19) | | + +-------+ + + | Paternal Grandfather | | | Natural causes | | | | (Age | | | | | 86) | | + +-------+ + + | Paternal Grandmother | | | Natural causes | | | | (Age | | | | | 90) | | + +-------+ + + | Sister | | | | + +-------+ + + | Sister | | Alive | | + +-------+ + + | Sister | | Alive | | + +-------+ + + | Sister | | | | + +-------+ + + Social History + + + [...] on file | | + + + Last Filed Vital Signs + + + + + | Vital Sign | Reading | Time Taken | Comments | + + + + + | Blood Pressure | 92/59 | 11/21/2019 9:49 AM | | | | | PDT | | + + + + + | Pulse | 56 | 11/21/2019 9:49 AM | | | | | PDT | | + + + + + | Temperature | 36.1 C (97 F) | 02/28/2019 7:26 AM | | | | | PDT | | + + + + + | Respiratory Rate | 20 | 03/05/2019 9:10 AM | 2 liters of oxygen | | | | PDT | | + + + + + | Oxygen Saturation | 97% | 03/23/2019 10:48 AM | | | | | PDT | | + + + + + | Inhaled Oxygen | - | - | | | Concentration | | | | + + + + + | Weight | 100.7 kg (222 lb) | 11/21/2019 9:49 AM | | | | | PDT | | + + + + + | Height | 188 cm (6' 2") | 11/21/2019 9:49 AM | | | | | PDT | | + + + + + | Body Mass Index | 28.5 | 11/21/2019 9:49 AM | | | | | PDT | | + + + + + Plan of Treatment + + + + + | Health Maintenance | Due Date | Last | Comments | | | | Done | | + + + + + | Med Mgmt: TSH | | | | | | 9 | | | + + + + + | Medication | | | | | Management | 9 | | | + + + + + | Vaccine: Zoster (1 | | | | | of 2) | 0 | | | + + + + + | Adult Annual | | | | | Wellness Visit | 5 | | | + + + + + | Vaccine: | | 04/05/20 | | | Pneumococcal 19-64 | 7 | 17 | | | (1 of 1 - PPSV23) | | | | + + + + + | Med Mgmt: Cr | | 02/15/20 | | | | 0 | 19, | | | | | 11/05/19 | | | | | 17, | | | | | 11/04/19 | | | | | 17, | | | | | Addition | | | | | al | | | | | history | | | | | exists | | + + + + + | Med Mgmt: eGFR | | 02/15/20 | | | | 0 | 19, | | | | | 11/05/19 | | | | | 17, | | | | | 11/04/19 | | | | | 17, | | | | | Addition | | | | | al | | | | | history | | | | | exists | | + + + + + | Vaccine: Influenza | | 05/14/20 | | | (#1) | 0 | 19, | | | | | 04/27/20 | | | | | 18, | | | | | 04/05/20 | | | | | 17, | | | | | Addition | | | | | al | | | | | history | | | | | exists | | + + + + + | Colorectal Cancer | | 01/23/20 | | | Screening | 4 | 14 | | | (Colonoscopy) | | | | + + + + + | Vaccine: | | 07/24/20 | | | Dtap/Tdap/Td (3 - | 8 | 18, | | | Td) | | 03/30/20 | | | | | 11 | | + + + + + | Hepatitis C | Completed | 02/15/20 | | | Screening | | 19, | | | | | 02/15/20 | | | | | 19, | | | | | 12/18/19 | | | | | 17, | | | | | Addition | | | | | al | | | | | history | | | | | exists | | + + + + + Implants + +-------+--------+ +--------+--------+--------+ | Implanted | Type | Area | Manufacture | Device | Shelf | Model | | | | | r | | Expira | / | | | | | | Identi | tion | Serial | | | | | | fier | Date | / Lot | + +-------+--------+ +--------+--------+--------+ | Stent Crnry P Prmr Mr 3.5x24 | Stent | N/A: | [place] | | 01/03/ | 74510- | | - [id number]: Qty: 1 | | Epstein | SCIENTIFIC | | 2018 | 2435 / | | on 11/03/2016 by Whitney, | | ry | FUENTES - BSCI | | | | | Latonia Jewell MD at [facility] | | | | | | / | | [facility] | | | | | | 617 | + +-------+--------+ +--------+--------+--------+ + + | Description:RENETTA TO MID RCA | + + + +-------+--------+ +---+--------+--------+ | Stent Crnry P Prmr Mr 4x16 - | Stent | N/A: | [place] | | 07/31/ | 89021- | | [id number]: Qty: 1 on | | Epstein | SCIENTIFIC | | 2017 | 1640 / | | 11/03/2016 by Latonia Olson | | ry | FUENTES - BSCI | | | | | MD Best at [facility] | | | | | | /[id number] | | [facility] | | | | | | [phone] | + +-------+--------+ +---+--------+--------+ + + | Description:RENETTA TO MID RCA | + + + +-------+--------+ +---+--------+--------+ | Stent Crnry P Prmr Mr 4x28 - | Stent | N/A: | [place] | | 05/11/ | - | | [id number]: Qty: 1 on | | Epstein | SCIENTIFIC | | 2016 | 2840 / | | 11/03/2016 by Latonia Olson | | ry | FUENTES - BSCI | | | | | MD Best at [facility] | | | | | | /[id number] | | [facility] | | | | | | 470 | + +-------+--------+ +---+--------+--------+ + + | Description:RENETTA TO PROXIMAL | | RCA | + + + +-------+--------+ +---+--------+--------+ | Promus Premier Drug Eluting | Stent | N/A: | [place] | | 07/17/ | / | | StentImplanted: Qty: 1 on | | Epstein | SCIENTIFIC | | 2016 | /[id number] | | 12/23/2016 by Latonia Olson | | ry | FUENTES - BSCI | | | [phone] | | MD Best at [facility] | | | | | | | | [facility] | | | | | | | + +-------+--------+ +---+--------+--------+ | Yara Grijalva Pls 5cc Aseptic | | N/A: | [employer]STE[employer]CH - | | 05/08/ | [id number] | | - [id number]: Qty: | | Spine | OSTT | | 2014 | | | 1 on 01/07/2015 by Jarred | | Cervic | | | | /[id number] | | [facility] | | al | | | | [phone] | | [facility] | | | | | | / | + +-------+--------+ +---+--------+--------+ | Plate Ant Elverta Cerv 80mm | | N/A: | [employer] - | | | [id number] | | - [id number]: Qty: 1 | | Spine | MEDT | | | 0 / / | | on 01/07/2015 by Jarred, | | Brunildaic | | | | | | Aleksander Jewell DO at [facility] | | al | | | | | | [facility] | | | | | | | + +-------+--------+ +---+--------+--------+ | Screw Trash Collector Truck Driver-Harpreet Vertex 4.5x24mm | | N/A: | [facility] | | | [id number] | | - [id number]: Qty: 1 | | Spine | DANEK - DIV | | | 4 / / | | on 01/07/2015 by Jarred, | | Cervic | [employer] | | | | | Aleksander Jewell DO at [facility] | | al | - SFDK | | | | | [facility] | | | | | | | + +-------+--------+ +---+--------+--------+ | Screw Trash Collector Truck Driver-Harpreet Vertex 4.5x30mm | | N/A: | [facility] | | | [id number] | | - [id number]: Qty: 3 | | Spine | DANEK - DIV | | | 0 / / | | on 01/07/2015 by Jarred, | | Ced | [employer] | | | | | Aleksander Jewell DO at [facility] | | al | - [facility] | | | | | [facility] | | | | | | | + +-------+--------+ +---+--------+--------+ | Screw Trash Collector Truck Driver-Harpreet Vertex 3.5x16mm | | N/A: | [employer] - | | | [id number] | | - [id number]: Qty: 3 | | Spine | MEDT | | | 6 / / | | on 01/07/2015 by Jarred, | | Ced | | | | | | Aleksander Jewell DO at [facility] | | al | | | | | | [facility] | | | | | | | + +-------+--------+ +---+--------+--------+ | Screw Trash Collector Truck Driver-Harpreet Vertex 3.5x14mm | | N/A: | [employer] - | | | [id number] | | - [id number]: Qty: 5 | | Spine | MEDT | | | 4 / / | | on 01/07/2015 by Jarred, | | Ced | | | | | | Aleksander Jewell DO at [facility] | | al | | | | | | [facility] | | | | | | | + +-------+--------+ +---+--------+--------+ | Set Screw Vertex Max - | | N/A: | [employer] | | | [id number] | | [id number]: Qty: 12 | | Spine | DANEK - DIV | | | | | on 01/07/2015 by Jarred | | Ced | [employer] | | | | | Aleksander Jewell DO at [facility] | | al | - [facility] | | | | | [facility] | | | | | | | + +-------+--------+ +---+--------+--------+ | Chromaloy Surendra | | N/A: | [employer] | | | [id number] | | [id number]: Qty: 1 on | | Spine | [employer] | | | | | 01/07/2015 by Aleksander Stern | | Ced | [employer] | | | | | DO Best at [facility] | | al | | | | | | [facility] | | | | | | | + +-------+--------+ +---+--------+--------+ | Allograft Lordotic [id number] - | | N/A: | [employer] | | 07/03/ | [id number] | | [id number]: Qty: 1 on | | Spine | DANEK - DIV | | 2017 | | | 01/07/2015 by Aleksander Stern | | Ced | [employer] | | | /[id number] | | DO Best at [facility] | | al | - [facility] | | | 125 | | [facility] | | | | | | /[id number] | | | | | | | | 994 | + +-------+--------+ +---+--------+--------+ | Allogft Lordtc Bone Sr | | N/A: | SPINALGRAFT | | 07/31/ | [id number] | | [id number] - [id number]: | | Spine | | | 2017 | | | Qty: 1 on 01/07/2015 by | | Ced | TECHNOLOGIE | | | /[id number] | | Aleksander Stern DO at [facility] | | al | S - SPNL | | | [address] | | [facility] | | | | | | /[address] | | CENTER | | | | | | [address] | + +-------+--------+ +---+--------+--------+ | Allogft Lordtc Bone Sr | | N/A: | [employer] | | 08/21/ | [id number] | | [id number] - [id number]: | | Spine | | | 2017 | | | Qty: 1 on 01/07/2015 by | | Ced | TECHNOLOGIE | | | /[id number] | | Aleksander Stern DO at [facility] | | al | S - SPNL | | | [address] | | [facility] | | | | | | /[address] | | [place] | | | | | | 4554 | + +-------+--------+ +---+--------+--------+ | Allograft Lordotic [id number] - | | N/A: | SOFAMOR | | 02/26/ | [id number] | | [id number]: Qty: 1 on | | Spine | DANEK - DIV | | 2016 | | | 01/07/2015 by Aleksander Stern | | Ced | [employer] | | | /[id number] | | DO Best at [facility] | | al | - SFDK | | | 512 | | [facility] | | | | | | /[id number] | | | | | | | | 3012 | + +-------+--------+ +---+--------+--------+ | Graft Magnifuse Pc 1x10cm - | | N/A: | SPINALGRAFT | | 10/09/ | [id number] | | [id number]: Qty: 1 | | Spine | | | 2016 | 1 | | on 01/07/2015 by Jarred | | Ced | TECHNOLOGIE | | | /[id number] | | Aleksander Jewell DO at [facility] | | al | S - SPNL | | | [phone] | | [facility] | | | | | | / | + +-------+--------+ +---+--------+--------+ | Screw Slf-Drl V/A 4.0x15mm - | | N/A: | SOFAMOR | | | [id number] | | [id number]: Qty: 1 on | | Spine | DANEK - DIV | | | 5 / | | 01/07/2015 by Aleksander Stern | | Ced | [employer] | | | | | A, DO at [facility] | | al | - SFDK | | | | | [facility] | | | | | | | + +-------+--------+ +---+--------+--------+ | Screw Slf-Drl V/A 4.0x16mm - | | N/A: | SOFAMOR | | | [id number] | | [id number]: Qty: 5 on | | Spine | DANEK - DIV | | | 6 / | | 01/07/2015 by Aleksander Stern | | Cervic | [employer] | | | | | A, DO at [facility] | | al | - [facility]FDK | | | | | [facility] | | | | | | | + +-------+--------+ +---+--------+--------+ | Screw Slf-Drl V/A 4.0x17mm - | | N/A: | SOFAMOR | | | [id number] | | [id number]: Qty: 4 on | | Spine | DANEK - DIV | | | | | 01/07/2015 by Aleksander Stern | | Ced | [employer] | | | | | A, DO at [facility] | | al | - [facility] | | | | | [facility] | | | | | | | + +-------+--------+ +---+--------+--------+ Results Not on filefrom Last 3 Months Insurance + +--------+ +--------+ +---------+--------+ | Payer | Benefi | Subscriber | Effect | Phone | Address | Type | | | t Plan | ID | jose l | | | | | | / | | Dates | | | | | | Group | | | | | | + +--------+ +--------+ +---------+--------+ | [employer] | [place] | [id number] | 12/24/19 | | | Indemn | | | NS | | 15-Pre | | | ity | | | ADMIN | | sent | | | | | | [place] | | | | | | | | [place] | | | | | | + +--------+ +--------+ +---------+--------+ | [employer] | [place] | [id number] | 12/24/19 | | | Indemn | | | COMMUN | | 15-Pre | | | ity | | | ITY | | sent | | | | | | CARE | | | | | | + +--------+ +--------+ +---------+--------+ | MEDICARE | MEDICA | [id number] | | [phone] | | Medica | | | RE | | 012-Pr | 5 | | re | | | PART A | | esent | | | | + +--------+ +--------+ +---------+--------+ + +--------+ +--------+ + + | Guarantor Name | Accoun | Relation to | Date | Phone | Billing Address | | | t Type | Patient | of | | | | | | | | | | + +--------+ +--------+ + + | Jose Raul Palafox | Person | Self [birth year] | [address] | | | al/Fam | | 1961 | [phone] | [address] | | | adrian | | | [address] (Home) | [place] [address] | + +--------+ +--------+ + + Advance Directives + + + + + | Type | Date Recorded | Patient | Explanation | | | | Thermal Surfacing Machine Operator | | + + + + + | Power of | 11/04/2016 12:00 | | | | Passenger Vessel Chef | AM | | | + + + + + | Advance | 01/07/2015 12:06 | | | | Directive | PM | | | + + + + + + + + + + | Code Status | Date | Date | Comments | | | Activated | Inactivated | | + + + + + | Full Code | 02/26/2019 | 02/28/2019 | | | | 11:50 AM | 12:54 PM | | + + + + + + + + +---+ | | | | | + + + +---+ | Full Code | 12/24/2016 | 12/24/2016 | | | | 7:13 AM | 12:20 PM | | + + + +---+ + + + +---+ | | | | | + + + +---+ | Full Code | 11/03/2016 | 11/05/2016 | | | | 3:28 PM | 3:34 PM | | + + + +---+ + + + +---+ | | | | | + + + +---+ | Full Code | 01/07/2015 | 01/11/2015 | | | | 9:43 PM | 6:18 PM | | + + + +---+
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
--- OUTSIDE RECORDS SUMMARY | ~2020-03-18 | XMS | Encounter Summary ---
Demographics + + + | Address | [address] | | | [place] [address] | + + + | Home Phone | | + + + | Preferred Language | Unknown | + + + | Marital Status | | + + + | Yazidi Affiliation | Unknown | + + + | Race | White | + + + | Ethnic Group | Not or | + + + Author + + + | Author | [facility] | | | and [place] | + + + | Organization | [facility] | | | and [...] Team Providers + +------+ + | Care Repair Electric Motor Assembler Name | Role | Phone | + [...] Description | +--------+---------+ + + + | 02/18/ | Office | [facility] | Latonia Olson, | ST elevation | | 2017 | Visit | [facility] | MD [address] | myocardial | | | | REHABILITATION [address] | [place] | infarction involving | | | | [address] [place] | [address] | right coronary | | | | [place] [address] | | artery (HCC) | | | | [phone] | | | +--------+---------+ + + + [...] encounter Progress Notes Pricilla Zaldivar RN - 02/18/2017 10:00 AM PDT [facility] [address] [facility] [address] Cardiac Rehab Date: 02/18/2017 Patient Information Patient Name: Jose Raul Palafox Date of : 1960 Age: 56 y.o. Encounter Diagnoses Code Name Primary? 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 Yes Any Changes in Medications? No 01/19/17 gabapentin. Any Problems to Report? No 02/18 reports that he had chest pain and left arm pain two days a go, which was relieved by 2 nitro. He [facility] to [facility]. He is to report this to cardiology. Pain Level: 01/31 leg, T-spine, neck Home exercise: Limited walking due to pain. Denies any adverse symptoms during exercise. No anginal symptoms. Sinus rhythm without ectopy-no ST segment changes. SBP with an adequate rise during exertio n. Compliant with medications, Quit Smoking!. Continue monitored exercise. Any abnormal vital signs or rhythm strips will be reported in progress note. Please see vital signs record, exercise record and rhythm strip scanned into media section every . Appointment duration: 60 min Electronically signed by: Pricilla Zaldivar RN, 02/18/2017 11:56 Patient Name: Jose Raul Palafox/: 1960/ signed by Pricilla Zaldivar RN at 02/18/2017 11:57 AM PDTdocumented in this encounter Plan [...]
--- OUTSIDE RECORDS SUMMARY | ~2020-03-18 | XMS | Encounter Summary ---
Demographics + + + | Address | [address] | | | [place] [address] | + + + | Home Phone | | + + + | Preferred Language | Unknown | + + + | Marital Status | | + + + | Evangelical Affiliation | Unknown | + + + | Race | White | + + + | Ethnic Group | Not or | + + + Author + + + | Author | [facility] | | | and [place] | + + + | Organization | [facility] | | | [...] Team Providers + +------+ + | Care Parts Classifier Name | Role | Phone | + [...] | +--------+ + + + + | 12/31/ | Hospital | [facility] | Cecil Hensley, | Hepatitis C virus | | 2015 | Encounter | MED CTR | PA-C [address] | infection, | | | | [facility] | [address] | unspecified | | | | [address] | [place] [address] | chronicity; Restless | | | | [place] [address] | [phone] | leg syndrome; COPD | | | | [phone] | | (chronic obstructive | | | | | | pulmonary disease) | | | | | | ([facility]); Asthma, | | | | | | unspecified asthma | | | | | | severity, | | | | | | uncomplicated; | | | | | | Thyroid disease; | | | | | | Hyperlipidemia; | | | | | | Diverticulitis of | | | | | | intestine without | | | | | | perforation or | | | | | | abscess without | | | | | | bleeding; Hernia, | | | | | | hiatal; Anxiety; | | | | | | Emphysema of lung | | | | | | (HCC); Essential | | | | | | hypertension; | | | | | | Migraine without | | | | | | status migrainosus, | | | | | | not intractable, | | | | | | unspecified migraine | | | | | | type; Neuropathy; | | | | | | History of tobacco | | | | | | use | +--------+ + + + + Social History + +-------+ +--------+------+ | Tobacco Use | Types | Packs/Day | Years | Date | | | | | Used | | + +-------+ +--------+------+ | Former Smoker | | 0.3 | 10 | | + +-------+ +--------+------+ + +---+---+ + | Smokeless Tobacco: | | | Quit: | | Former User | | | 05/08/ | | | | | 14 | [...] + + +---------+ + + | | | | 0 | | | | albuterol-ipratropiu | | | | | 5 | | m (DUONEB) 2.5-0.5 | | | | | | | mg/3 mL SOLN | | | | | | + + + +---------+ + + | busPIRone (BUSPAR) | Take 15 mg by mouth | | 0 | | | | 10 MG tablet | every 12 hours. | | | | 7 | + + + +---------+ + + | diazepam (VALIUM) | Take 1 tablet by | 60 | 0 | 01/12/20 | | | 5 mg tablet | mouth every 6 hours | tablet | | 15 | 5 | | | as needed (muscle | [...] +---------+ + + | gabapentin | Take 300 mg by mouth | | 0 | | | | (NEURONTIN) 300 mg | 3 times daily. | | | | 5 | | capsule | | | | | | + + + +---------+ + + | | Take 1-2 tablets by | 120 | 0 | 01/12/20 | | | HYDROcodone-acetamin | mouth every 4 hours | tablet | | 15 | 5 | | ophen (NORCO) 10-325 | as needed for Pain. | | | | | | mg per tablet | | | | | | + + + +---------+ + + | | Take 1 tablet by | | 0 | | | | HYDROcodone-acetamin | mouth every 6 hours | | | | 5 | | ophen (NORCO) 5-325 | as needed. | | | | | | mg [...] + + + +---------+ + + | methylPREDNISolone | Follow package | 21 | 0 | 01/12/20 | | | (MEDROL DOSEPAK) 4 | directions. | tablet | | 15 | 5 | | mg tablet | | | | | | + + + +---------+ + + | metoprolol | Take 50 mg by mouth | | 0 | | | | tartrate (LOPRESSOR) | 2 times daily. | | | | 7 | | 50 mg tablet | | | | | | + + + +---------+ + + documented as of this encounter Procedure Notes Eliud Garza MD - 01/02/2015 7:18 AM PDTAssociated Order(s): ECG 12 LEAD Adult ECG Repo rt Name: Jose Raul Palafox Age: 54 y.o. Gender: male 12/31/14 at 12:26 Narrative Interpretation: Sinus rhythm. Left atrial enlargement. RSR' lead V1 and V2. documented in this enc ounter Plan of Treatment Not on filedocumented as of this encounter Procedures + +--------+ + + + | Procedure Name | Priori | Date/Time | Associated Diagnosis | Comments | | | ty | | | | + +--------+ + + + | ECG 12 LEAD | Routin | 01/02/2015 | Hepatitis C virus | Results for this | | | e | 7:18 AM | infection, | procedure are in the | | | | PDT | unspecified | results section. | | | | | chronicity Restless | | | | | | leg syndrome COPD | | | | | | (chronic obstructive | | | | | | pulmonary disease) | | | | | | (HCC) Asthma, | | | | | | unspecified asthma | | | | | | severity, | | | | | | uncomplicated | | | | | | Thyroid disease | | | | | | Hyperlipidemia | | | | | | Diverticulitis of | | | | | | intestine without | | | | | | perforation or | | | | | | abscess without | | | | | | bleeding Hernia, | | | | | | hiatal Anxiety | | | | | | Emphysema of lung | | | | | | (HCC) Essential | | | | | | hypertension | | | | | | Migraine without | | | | | | status migrainosus, | | | | | | not intractable, | | | | | | unspecified migraine | | | | | | type Neuropathy | | | | | | History of tobacco | | | | | | use | | + +--------+ + + + documented in this encounter Results ECG 12 lead (01/02/2015 7:18 AM PDT) + + + | Narrative | Performed At | + + + | Eliud Garza MD 01/02/2015 7:18 Adult ECG Report | | | Name: Jose Raul Palafox Age: 54 y.o. Gender: male 12/31/14 at | | | 12:26 Narrative Interpretation: Sinus rhythm. Left atrial | | | enlargement. RSR' lead V1 and V2. | | + + + documented in this encounter Visit Diagnoses + + | Diagnosis | + + | Hepatitis C virus infection, unspecified chronicity | + + | Restless leg syndrome Restless legs syndrome (RLS) | + + | COPD (chronic obstructive pulmonary disease) (HCC) Chronic airway obstruction, not | | elsewhere classified | + + | Asthma, unspecified asthma severity, uncomplicated | + + | Thyroid disease Unspecified disorder of thyroid | + + | Hyperlipidemia Other and unspecified hyperlipidemia | + + | Diverticulitis of intestine without perforation or abscess without bleeding | | Diverticulitis of colon (without mention of hemorrhage) | + + | Hernia, hiatal Diaphragmatic hernia without mention of obstruction or gangrene | + + | Anxiety Anxiety state, unspecified | + + | Emphysema of lung (HCC) Other emphysema | + + | Essential hypertension Unspecified essential hypertension | + + | Migraine without status migrainosus, not intractable, unspecified migraine type | + + | Neuropathy Mononeuritis of unspecified site | + + | History of tobacco use Personal history of tobacco use, presenting hazards to health | + + documented in this encounter"
--- OUTSIDE RECORDS SUMMARY | ~2020-03-18 | XMS | Encounter Summary ---
Demographics + + + | Address | [address] | | | [place] [address] | + + + | Home Phone | | + + + | Preferred Language | Unknown | + + + | Marital Status | | + + + | Restoration Affiliation | Unknown | + + + | Race | White | + + + | Ethnic Group | Not or | + + + Author + + + | Author | [facility] | | | and [place] | + + + | Organization | [facility] | | [...] Team Providers + +------+ + | Care Networker Name | Role | Phone | + [...] | Specialty | Physical | Diagnoses | Shellie | [facility] | | | Services | Therapy | Weakness of | Cecil Frost, | LEATHA | | | Required | | right upper | PA-C [address] | HOSPITAL | | | | | extremity | [address] | [address] | | | | | Numbness and | [address] | | | | | tingling in | [place], | [place], [place] | | | | | right hand | [place] [address] | [address] | | | | | Left-sided | Phone: | Phone: | | | | | thoracic | [phone] | [phone] | | | | | back pain, | Fax: | Fax: | | | | | unspecified | [phone] | [phone] | | | | | chronicity | | | | | | | Status post | | | | | | | cervical | | | | | | | spinal | | | | | | | fusion | | | | | | | Procedures | | | | | | | 01/20 | | | | | | | PENDING- | | | +--------+ + + + + + Reason for Visit + + + | Reason | Comments | + + + | Follow-up | F/U on symptoms | + + + Follow Up (Routine) +--------+--------+ + + + + | Status | Reason | Specialty | Diagnoses / | Referred By | Referred To | | | | | Procedures | Contact | Contact | +--------+--------+ + + + + | Closed | | Neurosurgery | Diagnoses | Patricia, | Jarred, | | | | | Spondylosis | Gary | Aleksander Jewell DO | | | | | without | MD Garry | [address] | | | | | myelopathy | [address] | | | | | or | [place]JAYA | [place] | | | | | radiculopath | [address]IVE [facility] | [address] Phone: | | | | | y, cervical | [place] | [phone] | | | | | region | [address] | Fax: | | | | | Arthrodesis | Phone: | [phone] | | | | | status | [phone] | | | | | | Follow up | Fax: | | | | | | appointment | [phone] | | | | | | Procedures | | | | | | | [place] OFFICE | | | | | | | OUTPATIENT | | | | | | | VISIT 25 | | | | | | | MINUTES | | | +--------+--------+ + + + + Encounter Details +--------+---------+ + + + | Date | Type | Department | Care Team | Description | +--------+---------+ + + + | 01/04/ | Office | [facility] | Cecil Hensley, | Weakness of right | | 2016 | Visit | NEUROSURGERY [address] | PA-C [address] | upper extremity | | | | [address] | [address] [place] | (Primary Dx); | | | | [place], [place] | [place] [address] | Numbness and | | | | [address] | [phone] | tingling in right | | | | [phone] | | hand; Left-sided | | | | | | thoracic back pain, | | | | | | unspecified | | | | | | chronicity; Status | | | | | | post cervical spinal | | | | | | fusion | +--------+---------+ + + + Social History [...] + + + | Blood Pressure | 141/93 | 01/05/2016 2:29 PM | | | | | PDT | | + + + + + | Pulse | 92 | 01/05/2016 2:29 PM | | | | | PDT | | + + + + + | Temperature | - | - | | + + + + + | Respiratory Rate | 18 | 01/05/2016 2:29 PM | | | | | PDT | | + + + + + | Oxygen Saturation | - | - | | + + + + + | Inhaled Oxygen | - | - | | | Concentration | | | | + + + + + | Weight | 102.1 kg (225 lb) | 01/05/2016 2:29 PM | | | | | PDT | | + + + + + | Height | 188 cm (6' 2") | 01/05/2016 2:29 PM | | | | | PDT | | + + + + + | Body Mass Index | 28.89 | 01/05/2016 2:29 PM | | | | | PDT [...] Instructions Patient Instructions Cecil Hensley PA - 01/05/2016 3:10 PM PDTPer our discussion, I d on't think there is much to do with respect to her neck surgically. However, I am willing t o order some physical therapy to see if this possibly improves your quality of life with res pect to pain around her neck and increasing strength in the lower right hand. It is possibl e that he will have some permanent nerve damage and this will not get better. If you're rib pain returns you can call our office. I could possibly order a thoracic MRI for you. Vesna mahan, my suspicions that you are having thoracic radiculopathy are low. documented in this encounter Progress Notes Cecil Hensley PA - 01/05/2016 3:08 PM PDTFormatting of this note might be different f rom the original. YUNIER Jacinto [address] [facility] [address] [place] [address] FAX: NEUROSURGERY FOLLOW-UP CHIEF COMPLAINT: Chief Complaint Patient presents with Follow-up F/U on symptoms HISTORY OF PRESENT ILLNESS: The patient is a 55 y.o. male that had a anterior C3-C7 cervic al fusion along with a C3-T2 posterior cervical fusion by me for neck and arm pain around 1 year ago. He returns and overall is doing fairly well. The patient complains of tingling and numbness in his right hand along with weakness. He also complains of an odd sharp shoot ing pain that comes from his upper thoracic spine and radiates around to his sternum. Stephanie nt states that he took a fall in the first couple of weeks after his original surgery. This resulted in a sensation where one of his ribs had "popped out". Patient remembers having t he same pain back then. From then until now he had 1 brief episode where this occurred. Mo st recently, about 4 weeks ago, he experienced this again. It lasted fairly intensely for a bout 3 weeks. In the last week he has not had any such symptoms. It was the presentation o f these symptoms that brought him into our office. Patient states that overall, he is much better than he was prior to surgery. It was his ri ght arm that was bothering him prior to surgery. Patient has less pain in his arm now and h e had prior to surgery but still notes tingling and numbness in his hand along with weakness . Patient reports he did not have physical therapy after surgery. Issues with swallowing h ave not been a significant problem and continue to improve overall. PAST MEDICAL HISTORY: Past Medical History Diagnosis [...] T1-2; Surgeon: Aleksander Stern DO; Lo cation: [facility] MAIN OR CURRENT MEDICATIONS: Current Outpatient Prescriptions Medication Sig Dispense Refill busPIRone (BUSPAR) 10 MG tablet Take 15 mg by mouth every 12 hours. famotidine (PEPCID) 20 mg tablet Take 20 [...] reports that he has been smoking. He has never used smokeless tobacco. He rep orts that he drinks alcohol. He reports that he uses illicit drugs (Marijuana) about twice p er week. FAMILY HISTORY: Family History Problem Relation Age of Onset Heart disease Mother Heart disease Father Heart disease Sister Heart disease Brother Heart disease Sister Diabetes Mother INTERIM PHYSICAL EXAMINATION: Blood pressure 141/93, pulse 92, resp. rate 18, height 1.88 m (6' 2"), weight 102.059 kg (2 25 lb). Body mass index is 28.88 kg/(m^2). GENERAL: Jose Raul Palafox is in no acute distress with unlabored respirations. Patient h as a somewhat odd affect and is not great historian. However, he is very polite and reasona ble. HEENT: HEAD/FACE: Normocephalic and atraumatic. There are no areas of recent trauma. CHEST: Clear to ausculation without crackles or wheeze. HEART: Regular rate and rhythm without murmurs. SPINE: The patient s incision has healed further and is again without drainage, erythema, or discharge EXTREMITIES: No lower extremity edema. NEUROLOGICAL EXAMINATION: MENTAL STATUS: The patient is awake, alert, and oriented. 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 Otherwise, his right ar m is a 4+ to 5/5. This is improved from the preoperative exam. patient is able to get his ar ms overhead but has notable paracervical neck pain and trapezius pain when doing this. SENSORY EXAM: The sensory examination is slightly improved. REFLEXES: Reflexes are unchanged from his preoperative history and physical. RADIOGRAPHIC REVIEW: The patient s postoperative x-rays show stable instrumentation and alignment and were rev iewed with the patient today. There have been no interval changes since the immediate posto perative films. There has been increased arthrodesis since the patient s last x-ray which was also reviewed for comparison. However, as I showed the patient, it does appear that th e top level does not appear to have fused with the inferior endplate of C3. Otherwise, the fusion looks great and hardware is currently holding in place nicely ASSESSMENT: Encounter Diagnoses Name Primary? Weakness of right upper extremity Yes Numbness and tingling in right hand Left-sided thoracic back pain, unspecified chronicity Past Medical History Diagnosis Date Hepatitis C COPD (chronic obstructive pulmonary disease) (HCC) Restless leg syndrome Asthma Thyroid disease Hyperlipidemia Diverticulitis Hernia, hiatal Anxiety Emphysema of lung (HCC) Hypertension Migraine Neuropathy Thyroid disease History of tobacco use PLAN: Overall, the patient is overall doing as expected. Patient definitely has improvements in his overall condition compared to prior before surgery. It is not completely surprising alex t some of his symptoms remain. I am recommending that we send him for physical therapy to shavon address some of his paracervical neck pain, trapezius pain, and hopefully some of the we akness in his right arm. Surgically, it is highly unlikely that there is more to do on his neck. I'm not certain what was causing his upper thoracic rib pain. I explained that it is highl y unlikely that a rib is popping out. Patient could have possibly been experiencing some tr ansient upper thoracic radiculopathy. It is also possible that he was experiencing symptoms that could be related to shingles. Either way, the current time, it seems that these sympt oms have gone away. Therefore, we will watch this conservatively and consider an MRI if his symptoms return . The cervical fusion appears to have progressed as planned. The his preoperative symptoms a re improved at least to some degree. Patient will follow up with us on an as-needed basis depending on how well he does following his physical therapy and if symptoms in his left rib cage near the axilla return ELECTRONICALLY SIGNED BY: YUNIER Jacinto, 01/05/2016 15:09 documented in this encounter Plan of Treatment + + +--------+ + + | Name | Type | Priori | Associated Diagnoses | Order Schedule | | | | ty | | | + + +--------+ + + | Ambulatory referral | Outpatient | Routin | Weakness of right | Ordered: 01/05/2016 | | to Physical Therapy | Referral | e | upper extremity | | | | | | Numbness and | | | | | | tingling in right | | | | | | hand Left-Sided | | | | | | Thoracic Back Pain, | | | | | | Unspecified | | | | | | Chronicity Status | | | | | | post cervical spinal | | | | | | fusion | | + + +--------+ + + documented as of this encounter Visit Diagnoses + + | Diagnosis | + + | Weakness of right upper extremity - Primary Other musculoskeletal symptoms referable | | to limbs | + + | Numbness and tingling in right hand Disturbance of skin sensation | + + | Left-sided thoracic back pain, unspecified chronicity | + + | Status post cervical spinal fusion Arthrodesis status | + + documented in this encounter
--- OUTSIDE RECORDS SUMMARY | ~2020-03-18 | XMS | Encounter Summary ---
Demographics + + + | Address | [address] | | | [place] [address] | + + + | Home Phone | | + + + | Preferred Language | Unknown | + + + | Marital Status | | + + + | Anabaptist Affiliation | Unknown | + + + | Race | White | + + + | Ethnic Group | Not or | + + + Author + + + | Author | [facility] | | | and [place] | + + + | Organization | [facility] | | [...] Team Providers + +------+ + | Care Photo Intern Name | Role | Phone | + [...] | | | | with | | [address] Phone: | | | | | radiculopath | | [phone] | | | | | y, lumbar | | Fax: | | | | | region Low | | [phone] | | | | | back pain, [...] | | | | | | [place] | | | | | | | [...] + + + + | 02/26/ | Anesthesia | [facility] | Emmanuel Dorsey MD | | | 2019 | Event | [facility] | [address] | | | | | [address] | [place] | | | | | [place] | [address] | | | | | [address] | | | | | | [phone] | | | +--------+ + + + + Anesthesia Record + + + + + | Procedure Name | Responsible | Anesthesia Start | Anesthesia Stop Time | | | Anesthesiologist | Time | | + + + + + | Right L2-L3, L3-L4, | Emmanuel Dorsey MD | 02/26/19 0800 | 02/26/19 1031 | | L4-L5 Decompressive | | | | | Laminectomy (Right | | | | | Back) | | | | + + + + + +----+---+ + + | Da | T | Event | Comment | | te | i | | | | | m | | | | | e | | | +----+---+ + + | 08 | 0 | | | | /0 | 7 | | | | 5/ | 3 | | | | 20 | 6 | | | | 19 | | | | +----+---+ + + | | 0 | An Checkout | Pre-use anesthesia machine/equipment checkout. | | | 8 | | | | | 0 | | | | | 0 | | | +----+---+ + + | | 0 | An Start | Reassessment prior to anesthesia induction/procedure. | | | 8 | | | | | 0 | | | | | 0 | | | +----+---+ + + | | 0 | Antibiotic | | | | 8 | Given | | | | 0 | | | | | 0 | | | +----+---+ + + | | 0 | Preoxygenat | | | | 8 | ed | | | | 0 | | | | | 3 | | | +----+---+ + + | | 0 | An | | | | 8 | Induction | | | | 0 | | | | | 6 | | | +----+---+ + + | | 0 | An | | | | 8 | Intubation | | | | 0 | | | | | 8 | | | +----+---+ + + | | 0 | [place] | | | | 8 | 43-degrees | | | | 3 | | | | | 1 | | | +----+---+ + + | | 0 | First | | | | 8 | Inc/Proc St | | | | 3 | | | | | 3 | | | +----+---+ + + | | 1 | Quick Note | Naloxone .08mg given IV | | | 0 | | | | | 1 | | | | | 2 | | | +----+---+ + + | | 1 | [place] off | | | | 0 | | | | | 1 | | | | | 4 | | | +----+---+ + + | | 1 | Breathing | | | | 0 | Spontaneous | | | | 1 | ly | | | | 4 | | | +----+---+ + + | | 1 | Quick Note | Naloxone .04 mg given iV | | | 0 | | | | | 1 | | | | | 5 | | | +----+---+ + + | | 1 | Oropharynx | | | | 0 | Suctioned | | | | 2 | | | | | 2 | | | +----+---+ + + | | 1 | Moving | | | | 0 | Purposefull | | | | 2 | y | | | | 4 | | | +----+---+ + + | | 1 | Extubated | | | | 0 | Awake | | | | 2 | | | | | 4 | | | +----+---+ + + | | 1 | an stop | | | | 0 | data | | | | 2 | | | | | 4 | | | +----+---+ + + | | 1 | An Stop | Patient handed off to recovery nurse. | | | 3 | | | | | 1 | | | +----+---+ + + +------+ | Meds | +------+ + + + | Name | Total | + + + | lidocaine 2% | 60 mg | + + + | propofol (DIPRIVAN) injection | 300 mg | | (bolus) (20 mL) | | + + + | propofol | 1,222.8 mg | + + + | HYDROmorphone | 2 mg | + + + | phenylephrine (Injection) | 100 mcg | + + + | dexamethasone | 10 mg | + + + | ondansetron | 4 mg | + + + | dexmedetomidine (Bolus) | 20 mcg | + + + | magnesium sulfate | 2 mg | + + + | methylPREDNISolone | 40 mg | + + + | succinylcholine (ANECTINE) | 100 mg | | injection | | + + + | cisatracurium | 1 mg | + + + | ceFAZolin (ANCEF, KEFZOL) 100 | 2 g | | mg/mL IV syringe 2 g | | + + + | Phenylephrine 10mg/mL VIAL | 2,404.84 mcg | + + + | ePHEDrine (AKOVAZ) injection 50 | 15 mg | | mg/mL | | + + + | lactated ringers (LR) infusion | 1,800 mL | + + + + + | Name | + + | N2O Flow Rate (L/Min) | + + | O2 Flow Rate (L/Min) | + + | Insp O2 | + + | Exp SEV | + + | Air Flow Rate (L/Min) | + + + + | No blood administrations on file. | + + +--------+ + + + | Type | Details | Placement | Removal | +--------+ + + + | Periph | 02/26/19; 0703; Right; Forearm; | 02/26/19 0703 by | 02/28/19 1040 by | | darryll | veao-lgy-ugurof catheter system; | Rose Esparza RN | Judi Benson RN | | IV | 18 gauge, 1 1/4 in length; 0; | | | | | distraction, tolerated well; no | | | | | longer indicated, catheter/device | | | | | intact; short term use; | | | | | 02/28/19; 1040 | | | +--------+ + + + | Airway | Placement Date: 02/26/19; | 02/26/19 08 by | 02/26/19 1024 by | | | Placement Time: 807 (created via | Emmanuel Dorsey MD | Emmanuel Dorsey MD | | | procedure documentation); Airway | | | | | Grade: 1; Successful Technique: | | | | | video scope; Laryngoscope Blade | | | | | Size: 4; Attempts: 1; Airway | | | | | Type: endotracheal; Size: 6.5; | | | | | Airway Tube Secured At: 23; | | | | | Trauma: none; Other Equipment: | | | | | stylette; Placement Check: | | | | | exhaled CO2 detection device, | | | | | bilateral chest rise; Removal | | | | | Date: 02/26/19; Removal Time: | | | | | 1024 | | | +--------+ + + + | Wound | 02/26/19; 926; Incision; | 02/26/19 09 by | 02/28/19 104 by | | | Bilateral; back; Healing; | Antonio Huerta RN | Judi Benson RN | | | 02/28/19; 1045 | | | +--------+ + + + documented in this encounter Social History + + + +--------+ + [...] Postprocedure Evaluation - Emmanuel Dorsey MD - 02/26/2019 1:58 PM PDT ANESTHESIA POSTANESTHESIA EVALUATION Jose Raul Palafox 58 y.o. male 1960 [id number] Procedure(s) Right L2-L3, L3-L4, L4-L5 Decompressive Laminectomy (Right Back) Cooperates? Yes Mental Status Performs simple tasks. Respiratory Satisfactory - Airway patent (self maintained). Cardiovascular Satisfactory - Blood pressure and heart rate acceptable Temperature Satisfactory Pain Satisfactory N/V Control Satisfactory Hydration Satisfactory - No signs of dehydration Vitals Value Taken Time Temp 36.4 C (97.5 F) 02/26/2019 11:34 Pulse 81 02/26/2019 13:06 Resp 18 02/26/2019 11:34 BP 112/72 02/26/2019 11:34 Arterial Line BP Arterial Line BP 2 SpO2 96 % 02/26/2019 13:06 Electronically signed by Emmanuel Dorsey MD 02/26/2019 13:58 [facility] Emmanuel Dorsey MD at 2018 1:59 PM PDTAnesthesia Procedure Notes - Emmanuel Dorsey MD - 02/26/2019 8:37 AM PDTAss ociated Order(s): AirwayAnesthesia Airway Placement 02/26/2019 8:08 Preprocedure check: patient identified, oxygen, airway assessed, patient reassessment prior to induction, airway equipment checked and suction Rapid Sequence Induction: no Successful technique: videoscope Laryngoscope blade size: 4 Airway grade: 1 (Full view of glottis) Other equipment: stylette Attempts: 1 Airway type: endotracheal Size: 6.5 Cuffed: cuffed Tube depth: 23 cm Tube secured with: adhesive tape Trauma: none Tube placement verification: bilateral chest rise and carbon dioxide detection Performing provider: Emmanuel Dorsey MD Please see intraoperative grid for any additional medication documentation. nesthesia Preprocedure Evaluation - Emmanuel Dorsey MD - 02/26/2019 7:27 AM PDTFormatting of this note might be di fferent from the original. ANESTHESIA PREANESTHESIA EVALUATION Jose Raul Palafox 58 y.o. male 1960 [id number] Procedure(s): Right L2-L3, L3-L4, L4-L5 Decompressive Laminectomy (Right Back) Medical,anesthesia, drug, allergy histories reviewed, NPO status verified. ECG reviewed. Labs reviewed. (+) perioperative beta-fabian/statin given/taken. . Review of Systems / Med History Anesthesia History No anesthesia complications except where noted below. Cardiovascular (+) hypertension and essential, (+) coronary artery disease. (+) past myoca rdial infarction. . Pulmonary (+) supplemental oxygen, Chronic Obstructive Pulmonary Disease. (+) asthma. (+) tobacco use . (+) ex-smoker: 2019. Gastrointestinal/Hepatic (+) hypercholesterolemia. (+) hepatitis (+) type C. Endocrine (+) hypothyroidism. Neuromuscular (+) back pain, neuropathy, chronic pain. Physical Exam Airway MP II, TM >3 FB, Mouth opening >2 FB. Neck: full ROM, extends >30 degrees. Jaw protrus ion normal. Dental Grossly normal except where noted below.; CV Rhythm regular. Rate normal. (-) murmur. Pulm (+) rhonchi and decreased breath sounds. Neuro Grossly normal. Anesthesia Plan ASA 3 (due to COPD, CAD) Type: General. Induction: Intravenous. Potential problems: None anticipated. Monitors: Standard ASA monitors. Consent statement:Anesthetic plan, alternatives, risks and benefits discussed with patient. heart problems, ICU placement, nausea, pain, perioperative CV events, respiratory events, s troke. Consenting person understands and agrees to proceed . PARQ. Electronically Signed by: Emmanuel Dorsey MD ESig date/time: 02/26/2019 7:27 documented in this enco unter Miscellaneous Notes Anesthesia Post-op Handoff - Emmanuel Dorsey MD - 02/26/2019 10:30 AM PDT ANESTHESIA HANDOFF NOTE Jose Raul Palafox 58 y.o. male 1960 [id number] The following were completed during the transfer of care: 1. Identification of patient 2. Identification of responsible practitioner (primary service) 3. Discussion of pertinent medical history 4. Discussion of the surgical/procedure course (procedure, reason for surgery, procedure pe rformed) 5. Intraoperative anesthetic management and issues/concerns 6. Expectations/plans for the early post-procedure period 7. Opportunity for questions and acknowledgement of understanding of report from receiving team Right L2-L3, L3-L4, L4-L5 Decompressive Laminectomy (Right Back) Patient Location: Phase I Handoff Protocol Used: post-procedure handoff checklist completed Airway/O2: nasal cannula with O2 Multimodal analgesia: multimodal analgesia used between 6 hours prior to anesthesia start t o PACU discharge Comments: sedated The significant anesthesia concerns and VS in Epic were reviewed with the receiving team. Emmanuel Dorsey MD 02/26/2019 10:30 [facility] Emmanuel Dorsey MD at 2018 10:30 AM PDTdocumented in this encounter Plan of Treatment Not on filedocumented as of this encounter Procedures + +--------+ + + + | Procedure Name | Priori | Date/Time | Associated Diagnosis | Comments | | | ty | | | | + +--------+ + + + | ANE AIRWAY NOTE | Routin | 02/26/2019 | | Results for this | | | e | 8:37 AM | | procedure are in the | | | | PDT | | results section. | + +--------+ + + + documented in this encounter Results Airway (02/26/2019 8:37 AM PDT) + + + | Narrative | Performed At | + + + | Emmanuel Dorsey MD 02/26/2019 8:38 Anesthesia Airway Placement | | | 02/26/2019 8:08 Preprocedure check: patient identified, oxygen, | | | airway assessed, patient reassessment prior to induction, airway | | | equipment checked and suction Rapid Sequence Induction: no | | | Successful technique: videoscope Laryngoscope blade size: 4 | | | Airway grade: 1 (Full view of glottis) Other equipment: stylette | | | Attempts: 1 Airway type: endotracheal Size: 6.5 Cuffed: cuffed | | | Tube depth: 23 cm Tube secured with: adhesive tape Trauma: none | | | Tube placement verification: bilateral chest rise and carbon dioxide | | | detection Performing provider: Emmanuel Dorsey MD Please see | | | intraoperative grid for any additional medication documentation. | | + + + + + | Procedure Note | + + | Emmanuel Dorsey MD - 02/26/2019 8:37 AM PDT Anesthesia Airway Placement02/26/2019 | | 8:08Preprocedure check: patient identified, oxygen, airway assessed, patient | | reassessment prior to induction, airway equipment checked and suctionRapid Sequence | | Induction: noSuccessful technique: videoscopeLaryngoscope blade size: 4 Airway grade: 1 | | (Full view of glottis)Other equipment: styletteAttempts: 1Airway type: | | endotrachealSize: 6.5Cuffed: cuffedTube depth: 23 cmTube secured with: adhesive | | tapeTrauma: noneTube placement verification: bilateral chest rise and carbon dioxide | | detectionPerforming provider: Marce Jose see intraoperative grid for any | | additional medication documentation. | |Attempts: 1 | |Airway type: endotracheal | |Size: 6.5 | |Cuffed: cuffed | |Tube depth: 23 cm | |Tube secured with: adhesive tape | |Trauma: none | |Tube placement verification: bilateral chest rise and carbon dioxide detection | |Performing provider: Emmanuel Dorsey MD | | | | | | | |Please see intraoperative grid for any additional medication documentation. | + + documented in this encounter Visit Diagnoses Not on filedocumented in this encounter Administered Medications + +--------+ +------+------+------+ | Medication Order | MAR | Action | Dose | Rate | Site | | | Action | Date | | | | + +--------+ +------+------+------+ | ceFAZolin (ANCEF, KEFZOL) 100 | Given | 02/27/20 | 2 g | | | | mg/mL IV syringe 2 g 2 g, | | 19 8:00 | | | | | Intravenous, Administer over 30 | | AM PDT | | | | | Minutes, Prior to Incision, | | | | | | | Starting 02/26/19 at 0745, For | | | | | | | 1 dose, Pre-op, Indications: | | | | | | | Surgical Prophylaxis | | | | | | + +--------+ +------+------+------+ +---+---+ | | | +---+---+ + +-------+ +------+---+---+ | cisatracurium (PF) (NIMBEX) | Given | 02/27/20 | 1 mg | | | | injection Intravenous, PRN, | | 19 8:04 | | | | | Starting Tue02/26/19 at 0804, | | AM PDT | | | | | Anesthesia Intra-op | | | | | | + +-------+ +------+---+---+ +---+---+ | | | +---+---+ + +-------+ +-------+---+---+ | dexamethasone (PF) 10 mg/mL | Given | 02/27/20 | 10 mg | | | | injection Intravenous, PRN, | | 19 9:04 | | | | | Starting Tue02/26/19 at 0904, | | AM PDT | | | | | Anesthesia Intra-op | | | | | | + +-------+ +-------+---+---+ +---+---+ | | | +---+---+ + +-------+ +--------+---+---+ | dexmedetomidine (PRECEDEX) in | Given | 02/27/20 | 10 mcg | | | | sodium chloride bolus infusion | | 19 8:21 | | | | | Intravenous, PRN, Starting Mon | | AM PDT | | | | | 02/26/19 at 0811, Anesthesia | | | | | | | Intra-op | | | | | | + +-------+ +--------+---+---+ +-------+ +--------+---+---+ | Given | 02/27/20 | 10 mcg | | | | | 19 8:11 | | | | | | AM PDT | | | | +-------+ +--------+---+---+ +---+---+ | | | +---+---+ + +-------+ +-------+---+---+ | ePHEDrine (AKOVAZ) 50 mg/mL | Given | 02/27/20 | 15 mg | | | | injection Intravenous, PRN, | | 19 8:59 | | | | | Starting Tue02/26/19 at 0859, | | AM PDT | | | | | Anesthesia Intra-op | | | | | | + +-------+ +-------+---+---+ +---+---+ | | | +---+---+ + +-------+ +------+---+---+ | HYDROmorphone (DILAUDID) 2 | Given | 02/27/20 | 2 mg | | | | mg/mL injection Intravenous, | | 19 8:14 | | | | | PRN, Starting Tue02/26/19 at 0814, | | AM PDT | | | | | Anesthesia Intra-op | | | | | | + +-------+ +------+---+---+ +---+---+ | | | +---+---+ + +---------+ +---+---+---+ | lactated ringers (LR) infusion | New Bag | 02/27/20 | | | | | at 10-100 mL/hr, Intravenous, | | 19 8:35 | | | | | CONTINUOUS, Starting Tue02/26/19 | | AM PDT | | | | | at 0700, TKO., Pre-op | | | | | | + +---------+ +---+---+---+ +---------+ +---+---+---+ | New Bag | 02/27/20 | | | | | | 19 8:00 | | | | | | AM PDT | | | | +---------+ +---+---+---+ +---+---+ | | | +---+---+ + +-------+ +-------+---+---+ | lidocaine (PF) 2% injection | Given | 02/27/20 | 60 mg | | | | Intravenous, PRN, Starting Mon | | 19 8:04 | | | | | 02/26/19 at 0804, Anesthesia | | AM PDT | | | | | Intra-op | | | | | | + +-------+ +-------+---+---+ +---+---+ | | | +---+---+ + +-------+ +------+---+---+ | magnesium sulfate 500 mg/mL | Given | 02/27/20 | 2 mg | | | | injection Intravenous, PRN, | | 19 8:11 | | | | | Starting Tue02/26/19 at 0811, | | AM PDT | | | | | Anesthesia Intra-op | | | | | | + +-------+ +------+---+---+ +---+---+ | | | +---+---+ + +-------+ +-------+---+---+ | methylPREDNISolone sodium | Given | 02/27/20 | 40 mg | | | | succinate (solu-MEDROL) 40 mg/mL | | 19 8:19 | | | | | injection Intravenous, PRN, | | AM PDT | | | | | Starting Tue02/26/19 at 0819, | | | | | | | Anesthesia Intra-op | | | | | | + +-------+ +-------+---+---+ +---+---+ | | | +---+---+ + +-------+ +------+---+---+ | ondansetron (ZOFRAN) injection | Given | 02/27/20 | 4 mg | | | | Intravenous, PRN, Starting Mon | | 19 9:52 | | | | | 02/26/19 at 0952, Anesthesia | | AM PDT | | | | | Intra-op | | | | | | + +-------+ +------+---+---+ +---+---+ | | | +---+---+ + +-------+ +---------+---+---+ | phenylephrine (SAMUEL-SYNEPHRINE) | Given | 02/27/20 | 100 mcg | | | | 100 mcg/mL injection | | 19 8:37 | | | | | Intravenous, PRN, Starting Mon | | AM PDT | | | | | 02/26/19 at 0837, Anesthesia | | | | | | | Intra-op | | | | | | + +-------+ +---------+---+---+ +---+---+ | | | +---+---+ + + + + +-------+---+ | phenylephrine (SAMUEL-SYNEPHRINE, | Rate/Dos | 02/27/20 | 0.4 | 0.2 | | | VAZCULEP) 10 mg/mL injection | e Change | 19 8:57 | mcg/kg/m | mL/hr | | | Intravenous, CONTINUOUS PRN, | | AM PDT | in | | | | Starting Tue02/26/19 at 0851, | | | | | | | Anesthesia Intra-op | | | | | | + + + + +-------+---+ +---------+ + +-------+---+ | New Bag | 02/27/20 | 0.2 | 0.1 | | | | 19 8:51 | mcg/kg/m | mL/hr | | | | AM PDT | in | | | +---------+ + +-------+---+ +---+---+ | | | +---+---+ + + + + +-------+---+ | propofol (DIPRIVAN) injection | Rate/Dos | 02/27/20 | 100 | 61.1 | | | Intravenous, CONTINUOUS PRN, | e Change | 19 8:53 | mcg/kg/m | mL/hr | | | Starting Tue02/26/19 at 0811, | | AM PDT | in | | | | Anesthesia Intra-op | | | | | | + + + + +-------+---+ + + + +-------+---+ | Rate/Dose Change | 02/27/20 | 120 | 73.4 | | | | 19 8:43 | mcg/kg/m | mL/hr | | | | AM PDT | in | | | + + + +-------+---+ | Rate/Dose Change | 02/27/20 | 140 | 85.6 | | | | 19 8:36 | mcg/kg/m | mL/hr | | | | AM PDT | in | | | + + + +-------+---+ +---+---+ | | | +---+---+ + +-------+ +--------+---+---+ | propofol (DIPRIVAN) injection | Given | 02/27/20 | 300 mg | | | | Intravenous, PRN, Starting Mon | | 19 8:06 | | | | | 02/26/19 at 0806, Anesthesia | | AM PDT | | | | | Intra-op | | | | | | + +-------+ +--------+---+---+ +---+---+ | | | +---+---+ + +-------+ +--------+---+---+ | succinylcholine (ANECTINE) | Given | 02/27/20 | 100 mg | | | | injection PRN, Starting Mon | | 19 8:06 | | | | | 02/26/19 at 0806, Anesthesia | | AM PDT | | | | | Intra-op | | | | | | + +-------+ +--------+---+---+ +---+---+ | | | +---+---+ documented in this encounter"
--- OUTSIDE RECORDS SUMMARY | ~2020-03-18 | XMS | Encounter Summary ---
Demographics + + + | Address | [address] | | | [place] [address] | + + + | Home Phone | | + + + | Preferred Language | Unknown | + + + | Marital Status | | + + + | Holiness Affiliation | Unknown | + + + [...] Team Providers + +------+ + | Care Clothing Room Supervisor Name | Role | Phone | [...] Description | +--------+---------+ + + + | 02/28/ | Office | [facility] | Latonia Olson, | ST elevation | | 2017 | Visit | [facility] | MD [address] | myocardial | | | | REHABILITATION [address] | [place] | infarction involving | | | | [address] [place] | [address] | right coronary | | | | [place] [address] | | artery (HCC) | | | | [phone] | | | +--------+---------+ + + + [...] encounter Progress Notes Pricilla Zaldivar RN - 02/28/2017 10:00 AM PDT [facility] [address] [facility] [address] Cardiac Rehab Date: 02/28/2017 Patient Information Patient Name: Jose Raul Palafox [...] relieved by 2 nitro. He reported to [facility]. He is to report this to [...] min Electronically signed by: Pricilla Zaldivar RN, 02/28/2017 11:47 Patient Name: Jose Raul Palafox/: 1960/ signed by Pricilla Zaldivar RN at 02/28/2017 11:47 AM PDTdocumented in this encounter Plan of [...]
--- OUTSIDE RECORDS SUMMARY | ~2020-03-18 | XMS | Encounter Summary ---
Demographics + + + | Address | [address] | | | [place] [address] | + + + | Home Phone | | + + + | Preferred Language | Unknown | + + + | Marital Status | | + + + | Adventism Affiliation | Unknown | + + + | Race | White | + + + | Ethnic Group | Not or | + + + Author + + + | Author | [facility] | | | and [place] | + + + | Organization | [facility] | | | [...] Team Providers + +------+ + | Care Program Evaluation Consultant Name | Role | Phone | + +------+ + | Gary Gomez MD | PCP | | + +------+ + Encounter Details +--------+ + + + + | Date | Type | Department | Care Team | Description | +--------+ + + + + | 06/02/ | Orders Only | [facility] | Aleksander Stern, | Neck pain (Primary | | 2016 | | NEUROSURGERY [address] | DO [address] | Dx) | | | | [address] | [address] [place] | | | | | [place] | [address] | | | | | [address] | | | | | | [phone] | | | +--------+ + + + [...] filedocumented as of this encounter Results XR Cervical Spine 4 [...] + | [facility], Rad Results In - 06/02/2016 3:56 PM PST [...] | [facility] [facility] | [address] | [place] | [phone] | | [facility] | | [address] | | | - IMAGING | | | | + + + + + documented in this encounter Visit Diagnoses + + | Diagnosis | + + | Neck pain - Primary Cervicalgia | + + documented in this encounter"
--- OUTSIDE RECORDS SUMMARY | ~2020-03-18 | XMS | Encounter Summary ---
Demographics + + + | Address | [address] | | | [place] [address] | + + + | Home Phone [...] Team Providers + +------+ + | Care Compounding Pharmacy Technician Name | Role | Phone | + +------+ + | Gary Gomez MD | PCP | | + +------+ + Reason for Visit +--------+--------+ + | Reason | Onset | Comments | | | Date | | +--------+--------+ + | Other | 11/30/ | procedure/hold warfarin | | | 2018 | | +--------+--------+ + Encounter Details +--------+ + + + + | Date | Type | Department | Care Team | Description | +--------+ + + + + | 11/30/ | Telephone | [facility] | Leo Ladd | Other | | 2018 | | CARDIOLOGY [address] | MD Teofilo [address] | (procedure/hold | | | | [place], | [address] [place] | warfarin) | | | | [place] [address] | [place] [address] | | | | | [phone] | [phone] | | | | | | | [...] this encounter Miscellaneous Notes Telephone Encounter - Denia Kat CMA - 12/12/2017 10:41 AM PDTReturned patients rosaura parker and scheduled him for injection on 12/15/2017 @ 5:00pm. Patient is aware that he n eeds to stop the Effient x 3 days prior to this procedure. elephone Encounter - Rose Keith RN - 12/12 9:36 AM PDTSpoke with patient, notified that he may stop prasugrel 10 mg 3 days prior to injection, stated he had called and tried to speak to Denia. I called Denia, she nish l call patient after 10. Patient notified ...........................................Rose Keith RN on 12/12/17 at 9:50 elephone Encount er - Denia Kat CMA - 12/08/2017 1:33 PM PDTLeft voicemail message for patient to c all our office back to schedule injection. Patient needs to stop his prasugrel 10 mg 3 days prior to his procedure. elephone Encounter - Leighann Cruz RN - 12/05/2017 9:[address] Ladd, okay to discontinue prior to procedure. ...........................................LEIGHANN Carrasquillo RN on 12/05/17 at 9:15 elephone Encounter - Denia Kat CMA - 12/01/2017 1:50 PM PDTSorry for the confusion I was on auto yeison t apparently. The patient is currently taking prasugrel 10 mg. Ok to discontinue before a pr ocedure? Please advise. elephone Encounter - Diana Wilson RN - 11/30/2017 2:34 PM PDTPer conversation wit h Dr Ladd. Our records indicate he does not take coumadin. He does not see a reason for co umadin. Patient was taking Brilinta but he completed the course of therapy September 2017. .... .......................................Diana Wilson RN on 11/30/17 at 14:36 elephone Encounter - Diana Wilson RN - 11/30/2017 1:15 PM PDT----- Message from Denia Kat CMA se nt at 11/29/2017 13:35 PDT ----- Dr. Padron saw this patient this morning and recommended a trial of a cervical epidural steroid injection. Patient would need to come off his coumadin for 7 days before an injecti on. This needs to be cleared by the patients electronic field service engineer before we can schedule him. Please advise. documented in this encounter Plan of Treatment Not on filedocumented as of this encounter Visit Diagnoses Not on filedocumented in this encounter"
--- OUTSIDE RECORDS SUMMARY | ~2020-03-18 | XMS | Encounter Summary ---
Demographics + + + | Address | [address] | | | [place] [address] | + + + | Home Phone [...] Team Providers + +------+ + | Care Industrial Fabric Cutter Name | Role | Phone | + +------+ + | Gary Gomez MD | PCP | | + +------+ + Encounter Details +--------+ + + + + | Date | Type | Department | Care Team | Description | +--------+ + + + + | 01/16/ | Orders Only | [facility] [place] | Aleksander Stern, | Cervical | | 2016 | | NEUROSURGERY [address] | DO [address] | spondylosis; S/P | | | | [address] | [address] [place], [place] | cervical spinal | | | | [place], [place] | [address] | fusion | | | | [address] | | | | | | [phone] | | | +--------+ + + + [...] Diagnosis | + + | Cervical spondylosis Cervical spondylosis without myelopathy | + + | S/P cervical spinal fusion Arthrodesis status | + + documented in this encounter"
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
--- OUTSIDE RECORDS SUMMARY | ~2020-03-18 | XMS | Encounter Summary ---
Demographics + + + | Address | [address] | | | [place] [address] | + + + | Home Phone [...] + + + | Author | [facility] | | | and [place] | + + + | Organization | [facility] | | | [...] Team Providers + +------+ + | Care Motors And Controls Tester Name | Role | Phone | + +------+ + | Gary Gomez MD | PCP | | + +------+ + Encounter Details +--------+ + + + + | Date | Type | Department | Care Team | Description | +--------+ + + + + | 11/06/ | Hospital | [facility] | Aleksander Stern, | Neck pain | | 2014 | Encounter | MED CTR XRAY [address] | DO [address] | | | | | [place] | [address] [place] [address] | | | | | [place] [address] | [id number] | | | | | [phone] | | | +--------+ + + + [...] | | Former User | | | 10 | | | | | 14 | [...] + + + +---------+ + + | albuterol | Inhale 2 puffs into | | 0 | | | | (PROVENTIL) 90 | the lungs every 4 | | | | 5 | | mcg/puff inhaler (ED | hours as needed. | | | | | | prepack) | | | | | | + + + +---------+ + + | | | | 0 | | | | albuterol-ipratropiu | | | | | 5 | | m (DUONEB) 2.5-0.5 | | | | | | | mg/3 mL SOLN | | | | | | + + + +---------+ + + | aspirin 81 mg | Take 81 mg by mouth | | 0 | | | | chewable tablet | Daily. | | | | 5 | + + + +---------+ + + | cyclobenzaprine | Take 10 mg by mouth | | 0 | | | | (FLEXERIL) 10 mg | 3 times daily as | | | | 5 | | tablet | needed. | | | | | + + + +---------+ + + | diclofenac | Take 75 mg by mouth | | 0 | | | | (VOLTAREN) 75 mg EC | 2 times daily. | | | | 5 | | tablet | | | | [...] +---------+ + + | levothyroxine | Take 137 mcg by | | 0 | | | | (SYNTHROID, | mouth every morning | | | | 5 | | LEVOTHROID) 137 MCG | (before breakfast). | | | | | | tablet | | | | | | + + + +---------+ + + | loperamide | Take 2 mg by mouth 4 | | 0 | | | | (IMODIUM) 2 mg | times daily as | | | | 5 | | capsule | needed. | | | | | + + + +---------+ + + | nortriptyline | 1 by mouth at | 120 | 1 | 01/24/20 | | | (PAMELOR) 10 MG | bedtime for 7 days; | capsule | | 13 | 5 | | capsuleIndications: | then 2 at bedtime | | | | | | Cervical | for 7 days; then 3 | | | | | | radiculopathy at C6 | at bedtime for 7 | | | | | | | days; then 4 at | | | | | | | bedtime | | | | | + + + +---------+ + + | ondansetron | Take 8 mg by mouth | | 0 | | | | (ZOFRAN ODT) 8 mg | every 8 hours as | | | | 5 | | disintegrating | needed. | | | | | | tablet | | | | | | + + + +---------+ + + | Telaprevir 375 MG | Take by mouth. | | 0 | | | | TABS | | | | | 5 | + + + +---------+ + + documented as of this encounter Plan of Treatment Not on filedocumented as of this encounter Procedures + +--------+ + + + | Procedure Name | Priori | Date/Time | Associated Diagnosis | Comments | | | ty | | | | + +--------+ + + + | XR CERVICAL SPINE 2 | Routin | 11/06/2014 | Neck pain | Results for this | | OR 3 VIEWS | e | 9:37 AM | | procedure are in the [...] 3 VIEWS. 11/06/2014 9:37 AM HISTORY: | [facility] | | neck pain . COMPARISON: MRI cervical spine 02/19/2014 | Saritha TYREL | | FINDINGS: Degenerative change is present at the atlantoaxial [facility] | | articulation. Craniocervical relationship appears maintained. [...] + | [facility] | [address] | [place] | [phone] | | [facility] | | [address] | | | - IMAGING | | | | + + + + + documented in this encounter Visit Diagnoses + + | Diagnosis | + + | Neck pain Cervicalgia | + + documented in this encounter"
--- OUTSIDE RECORDS SUMMARY | ~2020-03-18 | XMS | Encounter Summary ---
Demographics + + + | Address | [address] | | | [place] [address] | + + + | Home Phone | | + + + | Preferred Language | Unknown | + + + | Marital Status | | + + + | Islam Affiliation | Unknown | + + + | Race | White | + + + | Ethnic Group | Not or | + + + Author + + + | Author | [facility] | | | and [place] | + + + | Organization | [facility] | | | [...] Team Providers + +------+ + | Care Core Shaper Top Name | Role | Phone | + +------+ + | Gary Gomez MD | PCP | | + +------+ + Reason for Visit + +--------+ + | Reason | Onset | Comments | | | Date | | + +--------+ + | Medication Refill | 01/21/ | | | | 2014 | | + +--------+ + Encounter Details +--------+--------+ + + + | Date | Type | Department | Care Team | Description | +--------+--------+ + + + | 01/21/ | Refill | [facility] | Aleksandre Stern, | Medication Refill | | 2014 | | NEUROSURGERY [address] | DO [address] | | | | | [address] | [address] [place], [place] | | | | | [place], [place] | [address] | | | | | [address] | | | | | | [phone] | | | +--------+--------+ + + + Social History + +-------+ [...] Encounter - Marilu Tafoya Cert MA - 01/21/2015 3:23 PM PDTRx given to patient lo jones in the office. MARILU TAFOYA elephone Encounte r - Cruzito Avalos PA - 01/21/2015 2:37 PM PDTapproved elephone Encounter - Marilu Tafoya Cert MA - 01/21/2015 2:31 PM PDTDougBill has #30 left of his hydrocodone. He is taking this as prescribed. He will be out pr ior to his next appointment on 01/31. Please approve/deny. Thank you, MARILU TAFOYA documented in this encounter Plan of Treatment Not on filedocumented as of this encounter Visit Diagnoses Not on filedocumented in this encounter"
--- OUTSIDE RECORDS SUMMARY | ~2020-03-18 | XMS | Encounter Summary ---
Demographics + + + | Address | [address] | | | [place] [address] | + + + | Home Phone [...] Team Providers + +------+ + | Care Job Spotter Name | Role | Phone | + [...] Description | +--------+---------+ + + + | 03/02/ | Office | [facility] | Latonia Olson, | ST elevation | | 2017 | Visit | MED CTR CARDIAC | MD [address] | myocardial | | | | REHABILITATION [address] | [place] | infarction involving | | | | [address] [place] | [address] | right coronary | | | | [place] [address] | | artery (HCC) | | | | [phone] | | | +--------+---------+ + + + [...] encounter Progress Notes Pricilla Zaldivar RN - 03/02/2017 10:[address] [facility] CARDIAC REHABILITATION [address] [facility] [address] Cardiac Rehab Date: 03/02/2017 Patient Information Patient Name: Jose Raul Palafox [...] min Electronically signed by: Pricilla Zaldivar RN, 03/02/2017 12:14 Patient Name: Jose Raul Palafox/: 1960/ signed by Pricilla Zaldivar RN at 03/02/2017 12:15 PM PDTdocumented in this encounter Plan of [...]
--- OUTSIDE RECORDS SUMMARY | ~2020-03-18 | XMS | Encounter Summary ---
Demographics + + + | Address | [address] | | | [place] [address] | + + + | Home Phone | | + + + | Preferred Language | Unknown | + + + | Marital Status | | + + + | Voodoo Affiliation | Unknown | + + + | Race | White | + + + | Ethnic Group | Not or | + + + Author + + + | Author | [facility] | | | and [place] | + + + | Organization | [facility] | | | and [...] Team Providers + +------+ + | Care Drawer Liner Name | Role | Phone | + [...] Description | +--------+---------+ + + + | 04/06/ | Office | [facility] | Latonia Olosn, | ST elevation | | 2017 | Visit | [facility] | MD [address] | myocardial | | | | REHABILITATION [address] | [place] | infarction involving | | | | [address] [place] | [address] | right coronary | | | | [place] [address] | | artery (HCC) | | | | [phone] | | | +--------+---------+ + + + [...] encounter Progress Notes Pricilla Zaldivar RN - 04/06/2017 10:45 AM PDT [facility]ATION [address] [facility] [address] Cardiac Rehab Date: 04/06/2017 Patient Information Patient Name: Jose Raul Palafox Date of : 1960 Age: 56 y.o. Encounter Diagnoses Code Name Primary? 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 Yes Any Changes in Medications? No 01/19/17 gabapentin. Any Problems to Report? No Pain Level: 8/10 leg, T-spine, trapesius Home exercise: Limited walking due to pain. Denies any adverse symptoms during exercise. No anginal symptoms. Sinus rhythm without ectopy-no ST segment changes. SBP with an appropriate rise during exer tion. SpO2 96% on room air during exertion. Compliant with medications, Quit Smoking!. Continue monitored exercise. Modified weight lifting routine d/t pain. Any abnormal vital signs or rhythm strips will be reported in progress note. Please see vital signs record, exercise record and rhythm strip scanned into media section every . Appointment duration: 60 min Electronically signed by: Pricilla Zaldivar RN, 04/06/2017 12:41 Patient Name: Jose Raul Palafox/: 1960/ signed by Pricilla Zaldivar RN at 04/06/2017 12:41 PM PDTdocumented in this encounter Plan of Treatment Not on filedocumented as of this encounter Visit Diagnoses + + | Diagnosis | + + | ST elevation myocardial infarction involving right coronary artery (HCC) Acute | | myocardial infarction of inferoposterior wall, initial episode of care | + + documented in this encounter"
--- OUTSIDE RECORDS SUMMARY | ~2020-03-18 | XMS | Encounter Summary ---
Demographics + + + | Address | [address] | | | [place] [address] | + + + | Home Phone [...] + + + | Author | [facility] | | | and [place] | + + + | Organization | [facility] | | | and [...] Team Providers + +------+ + | Care Body Line Finisher Name | Role | Phone | + +------+ + | Gary Gomez MD | PCP | | + +------+ + Reason for Visit + +--------+ + | Reason | Onset | Comments | | | Date | | + +--------+ + | Imaging Only | 07/16/ | 6m PO xray | | | 2014 | | + +--------+ + | Other | 07/23/ | Xray results | | | 2014 | | + +--------+ + Encounter Details +--------+ + + + + | Date | Type | Department | Care Team | Description | +--------+ + + + + | 07/16/ | Telephone | [facility] | Aleksander Stern, | Imaging Only (6m PO | | 2014 | | NEUR[address]URGERY [address] | DO [address] | xray ); Other (Xray | | | | [address] | [address] [place], [place] | results) | | | | [place] | [id number] | | | | | [address] | | | | | | [phone] | | | +--------+ + + + [...] this encounter Miscellaneous Notes Telephone Encounter - Bhargavi Osborne RN - 07/23/2015 8:30 AM PSTCalled and updated Scot t about xray results, no questions at this time. elephone Encounter - Aleksander Stern DO - 07/23/2015 6:37 AM PSTX-rays look great. Healing is progressing nicely. Thanks. elephone Encounter - Marilu Tafoya Cert MA - 07/22/2015 3:11 [address]Dr. Jarred, Please see patients 6m PO xray and advise MARILU TAFOYA elephone Perla r - Iwona Cerrato - 07/16/2015 2:58 PM PSTPatient called back to let Marilu know he comp leted his x-rays. elep ujlio Encounter - Marilu Tafoya Cert MA - 07/16/2015 10:23 AM PSTI called and reminded Bill to complete his 6m po xray for review. He will have this done at [facility] and will call us once it's complete. The order was faxed today. MARILU TAFOYA documented in this encounter Plan of Treatment Not on filedocumented as of this encounter Visit Diagnoses Not on filedocumented in this encounter"
--- OUTSIDE RECORDS SUMMARY | ~2020-03-18 | XMS | Encounter Summary ---
Demographics + + + | Address | [address] | | | [place] [address] | + + + | Home Phone [...] Author + + + | Author | [facility] | | | and [place] | + + + | Organization | [facility] | | [...] Team Providers + +------+ + | Care Metal Furniture Assembly Supervisor Name | Role | Phone | + +------+ + | Gary Gomez MD | PCP | | + +------+ + Reason for Visit + +--------+ + | Reason | Onset | Comments | | | Date | | + +--------+ + | Pain Management | 03/19/ | | | | 2018 | | + +--------+ + | Coordination Of Care | 03/19/ | | | | 2018 | | + +--------+ + | Request For Medical | 03/19/ | | | Records | 2019 | | + +--------+ + Encounter Details +--------+ + + + + | Date | Type | Department | Care Team | Description | +--------+ + + + + | 03/19/ | Telephone | [facility] | Cecli Hensley, | Pain Management; | | 2018 | | NEUROSURGERY [address] | PA-C [address] | Coordination Of | | | | [address] | [address] [place] | Care; Request For | | | | [place] | [place] [address] | Medical Records | | | | [address] | [phone] | | | | | [phone] | | | +--------+ + + + [...] this encounter Miscellaneous Notes Telephone Encounter - Katie Tomas RN - 03/19/2019 10:29 AM PDTPatient called office to tiffanie mcintosh if we could send prior office visit note from Cecil Littlejohn to his PCP or call so that his pain management can be resumed by his PCP as he is eager to stop taking oxycodone and g et on previous regimen. Talked with Brianda at Dr Gomez's office and discussed patient request. She states to just fa x over any notes from providers and medication lists so they can assume management for patient pain medication. documented in this enco unter Plan of Treatment Not on filedocumented as of this encounter Visit Diagnoses Not on filedocumented in this encounter"
--- OUTSIDE RECORDS SUMMARY | ~2020-03-18 | XMS | Encounter Summary ---
Demographics + + + | Address | [address] | | | [place] [address] | + + + | Home Phone | | + + + | Preferred Language | Unknown | + + + | Marital Status | | + + + | Roman Catholic Affiliation | Unknown | + + + [...] Providers + +------+ + | Care Chemical Preparer Name | Role | Phone | + +------+ + | Gary Gomez MD | PCP | | + +------+ + Reason for Visit + + + | Reason | Comments | + + + | Back Pain | | + + + Evaluate & Treat (Routine) +--------+--------+ + + + + | Status | Reason | Specialty | Diagnoses / | Referred By | Referred To | | | | | Procedures | Contact | Contact | +--------+--------+ + + + + | Closed | | Neurosurgery | Diagnoses | Gomez, | Yuval, | | | | | Spinal | Jungwyn | Denton Aguayo MD | | | | | stenosis, | MD Garry | [address] | | | | | lumbosacral | [address] | | | | | region | [place] | [address] [place] | | | | | | [address] [place] | [place], [place] | | | | | | [place], [place] | [address] Phone: | | | | | | [address] | [phone] | | | | | | Phone: | Fax: | | | | | | [phone] | [phone] | | | | | | Fax: | | | | | | | [phone] | | +--------+--------+ + + + + Encounter Details +--------+---------+ + + + | Date | Type | Department | Care Team | Description | +--------+---------+ + + + | 05/06/ | Office | [facility] [place] | Cecil Hensley, | Chronic bilateral | | 2019 | Visit | NEUROSURGERY [address] | PA-C [address] | low back pain | | | | [address] | [address] [place] | without sciatica | | | | [place], [place] | [place] [address] | (Primary Dx); Pain | | | | [address] | [phone] | in both lower | | | | [phone] | | extremities; | | | | | | Cervicalgia; S/P | | | | | | cervical spinal | | | | | | fusion; Lumbar | | | | | | radiculopathy; | | | | | | Lumbar foraminal | | | | | | stenosis | +--------+---------+ + + + Social History [...] + + + | Blood Pressure | 120/78 | 11/27/2018 12:00 PM | | | | | PDT | | + + + + + | Pulse | 80 | 11/27/2018 12:00 PM | | | | | PDT [...] Weight | 104.7 kg (230 lb | 11/27/2018 12:00 PM | | | | 14.4 oz) | PDT | | + + + + + | Height | 188 cm (6' 2") | 11/27/2018 12:00 PM | | | | | PDT | | + + + + + | Body Mass Index | 29.65 | 11/27/2018 12:00 PM | | | | | PDT [...] of this encounter Patient Instructions Patient Instructions Tracy Coy, Cash Application Clerk - 11/27/2018 11:00 AM PDT We will see if Dr. Padron can get you in for an injection or Tuesday this week. Wait to hear from us this afternoon and wait to re-start your blood thinner. Call us if yo u have not heard from us by 4 tonight. Let pain be your guide. If you are doing an activity that starts causing you pain back off and ease back into it slowly. We don't want you taking any risks that do not need to be ta wilma. We like to use surgery as a last resort. We are permanently altering your spine for the re st of your life. documented in this encounter Progress Notes Cecil Hensley PA-C - 11/27/2018 11:00 AM PDT Cecil Hensley PA-C [address] [facility], [address] [place] [address] PHONE: FAX: NEUROSURGERY FOLLOW-UP CHIEF COMPLAINT: Chief Complaint Patient presents with Back Pain HISTORY OF PRESENT ILLNESS: The patient is a 57 y.o. male with the complaint of back and r ight leg symptoms that began several years ago. The back symptoms have been gradually worsening. He rates the back pain as severe. The ba ck symptoms are daily and continuous. He describes the back pain as sharp, tingling, shooti ng and crushing. His back pain and leg pain affect him 50/50. The patient describes leg symptoms that occur on primarily on the right. The leg symptoms account for 50% of his symptoms. The leg symptoms are constant, and the symptoms travel fro m the back into the lateral and anterior thigh and into the calf and ankle. The patient als o describes the loss of the ability to walk distances without sitting and weakness of the le gs. He can only walk for 3-5 minutes before he has to stop. His right ankle feels like it wants to explode. He gets occasional shooting pains into his left leg. He describes that t he other day in his garden he had to grab onto a pole so he would not fall because of severe leg pain and his legs felt like they had no strength. His pain is never better than an 8/1 0. His back pain makes it difficult for him to sleep and he admits to crying himself to sle ep some nights because the pain is so severe. He states "No one should have to live with th is kind of pain". He also admits that he is almost to the point of self medicating with alc ohol. He is currently trying to quit smoking however he is trying to quit. He is down to a 1/4 p ack per day. He has a couple beers in one sitting a couple times a week. He is drinking 14 -15 beers over a 3 week period. The patient does not report any change in bowel or bladder function recently. His symptoms improve with nothing. His symptoms worsen with rest, changing position, standing, sitting, walking, running, knee ling, bending, twisting and light exertion. He has tried Physical Therapy, Opioids, NSAIDS, Steroids, Injections, Muscle relaxer's and Lifestyle Modification. He was doing physical therapy however his physical therapist had hi m stop because everything was causing his pain to increase. The patient is currently taking opiates, muscle relaxer's, or nerve medications. These measures have failed to help in any way. He is on blood thinners however he stopped taking it last in preparation for this visit. CURRENT MEDICATIONS: Current Outpatient Medications Medication Sig Dispense Refill aspirin 81 MG EC tablet Take 1 tablet by mouth Daily. 30 tablet atorvaSTATin (LIPITOR) 80 MG tablet Take 1 tablet by mouth nightly. Do not take for a w nulato 30 tablet 11 buPROPion (WELLBUTRIN SR) 150 mg 12 hr tablet Take 1 tablet by mouth 2 times daily. busPIRone (BUSPAR) 15 mg tablet Take 15 mg by mouth 2 times daily. calcium carbonate (TUMS) 500 mg chewable tablet Take 1 tablet by mouth Daily as needed for Heartburn. cyclobenzaprine (FLEXERIL) 10 mg tablet Take 10 mg by mouth Twice daily as needed. cyclobenzaprine (FLEXERIL) 10 mg tablet Take 10 mg by mouth Twice daily as needed for Muscle spasms. DULoxetine (CYMBALTA) [address] capsule Take [...] TABS Take 1 tablet by mouth Daily. (Patient not taking: Yael douglas on 11/27/2018) 90 tablet 3 predniSONE (DELTASONE) 20 mg [...] Drug: Marijuana. Frequency: 2.00 times per week. REVIEW OF SYSTEMS: GENERALLY: No fever, no night sweats, no anemia, + fatigue, no recent profound weight sue nges. EYES: No eye problems, no impaired sight, + use of corrective lenses, no eye injury, no do uble vision, no transient blindness. EARS, NOSE, AND THROAT: No changes in taste or smell, no hearing difficulty, + ringing in the ears, no ear drainage, no ear injury, no dizziness, + voice changes, no difficulty swall owing, + significant snoring, no sleep apnea/CPAP, + sinus problems, + major dental work. NEUROLOGICALLY: Please see the review of systems discussed above in the history of present illness. In addition, the patient has numbness/pain of arms, numbness/pain of legs, awake with numbness/pain, weakness, muscle aching, coordination difficulty, change in walk, neck i njury, back injury, pain in neck, pain in back, headache, migraine, numbness of face. PSYCHIATRIC: No depression, + difficulty sleeping, + anxiety, no bipolar disorder. CARDIOVASCULAR: No heart attacks, no heart murmur, no heart fluttering, + chest pain, no a nkle swelling. LUNG DISEASE: + shortness of breath, no cough, no tuberculosis, no bloody cough, + asthma, + emphysema/COPD. GASTROINTESTINAL: No bowel disease, no nausea or vomiting, no rectal bleeding, no constipa tion, no fecal stool incontinence, + liver/gallbladder disease, no abdominal pain, no ulcers . KIDNEY DISEASE: No urinary frequency, no painful or difficult urination, no urinary incont inence, no bladder problems, no impotence. ENDOCRINE: No diabetes, + thyroid disease, no osteopenia or osteoporosis, no breast draina ge. SKIN: No breast lumps, no skin disease or skin changes, + rashes/itches. HEMATOLOGIC/LYMPHATIC: No enlarged lymph nodes, no easy or unusual bleeding, no personal h istory of cancer. RHEUMATOLOGIC: + joint pain/arthritis, no rheumatoid arthritis. INTERIM PHYSICAL EXAMINATION: Blood pressure 120/78, pulse 80, height 1.88 m (6' 2"), weight 104.7 kg (230 lb 14.4 oz). B juvenal mass index is 29.65 kg/m. GENERAL: Jose Raul Palafox is in no acute distress with unlabored respirations. The patie nt does appear uncomfortable throughout the exam today. HEENT: Head: Normocephalic/atraumatic with no areas of recent trauma. Eyes: Normal sclerae without icterus. Ears: No drainage or tenderness. Nasopharnyx: Clear without drainage. Oropharnyx: Clear without erythema. NECK (ANTERIOR): Supple and without palpable masses. CHEST: Clear to ausculation without crackles or wheeze. HEART: Regular rate and rhythm without murmurs. ABDOMEN: Soft, non-tender, non-distended, and without palpable masses. The patient is not o bese. SPINE: Inspection reveals no gross deformity. EXTREMITIES: No cyanosis, clubbing, or edema. Distal pulses are palpable. NEUROLOGICAL EXAM: MENTAL STATUS: The patient is awake, alert, and oriented. He follows simple and complex commands. His speech is fluent, he comprehends speech well, and he repeats well. He has no apparent deficits with short or skilled nursing memory. CRANIAL NERVES: II: Acuity is intact. [...] limited MUSCLE/ MOVEMENT: RIGHT LEFT Hip Flexion 4+ 5 Hip Extension 5 5 Knee Flexion 4* 5 Knee Extension 4* 5 Dorsiflexion 4 or 4+* 5 Extensor Hallicus Longus 5 5 Plantarflexion 4 or 4+* 5 SENSORY EXAM: Sensory exam shows no diminished sensation to light touch or pain throughout the upper and lower extremities. REFLEXES: (2 OR 2+ IS NORMAL) REFLEX: RIGHT LEFT PATELLAR 2+ 2+ ACHILLES - - GAIT: Gait is steady. PERIPHERAL NERVE/MISC: Straight leg raise is negative bilaterally. Marcelino's test of the hips is negative bilaterally. *All testing strength of his right lower extremity there is rapid appreciation of pain in h is low back that prohibits getting a good accurate measurement of his true strength. TEST AND RADIOGRAPHIC REVIEW: The patient's imaging was reviewed [...] at L5-S1 with subchondral sclerosis and near [id number] articulation. There is possibly some very mild listhesis at L4-L5.There is also some deformity of the L1 associated with significant loss of disc height. There is also possibly spondylolisthesis at this lev el as well. Flexion and extension suggest a minor amount of dynamic instability. ASSESSMENT: Outpatient Morphine Equivalent Daily Dose (MEDD) 11/28/18 and after 15-30 mg MEDD Order Name [...] factor of 1 = 15-30 mg MEDD Opioid Risk Tool (ORT): Total Score 4 (11/27/18 1207) PEG Pain screening tool: Total score: 9 (11/27/18 1205) PHQ9 Depression scale: Total Score 8 (11/27/18 1206) General Anxiety Disorder (REED-7): Total Score 2 (11/27/18 1206) Encounter Diagnoses Name Primary? Chronic bilateral low back pain without sciatica Yes Pain in both lower extremities Cervicalgia S/P cervical spinal fusion Past Medical History: Diagnosis Date Anxiety Asthma CAD in [place] artery COPD (chronic obstructive pulmonary disease) (HCC) Diverticulitis Emphysema of lung (HCC) Hepatitis C Hernia, hiatal History of tobacco use Hyperlipidemia Hypertension Migraine Neuropathy Other cervical disc displacement, unspecified cervical region Restless leg syndrome Thoracic radiculopathy 08/17/2016 Thyroid disease Thyroid disease PLAN: Overall, the patient is doing poorly. The patient has significant loss of disc height at L5-S1 associated with severe nerve root impingement. Patient symptoms have been worsening and are currently appreciated as severe We had a lengthy discussion with the patient about his options for care including surgical and non-surgical options. I have a moderately high degree of suspicion patient will end up needing a foraminotomy par tial facet ectomy and excision of disc material that is contributing to right side L5 nerve root impingement. However, this will likely take weeks to put together and I would like to see how patient does with a L5-S1 transforaminal epidural steroid injection first. We will work on getting an urgent authorization and get him an injection in the next week. Patient has already been off of his blood thinners since last and I would like to get this injection done in the next few days since he has already stopped these. I am going to schedule patient a follow-up with Dr. Barakat in the next [address] Reji del rosario returns. In the meantime we will have a chance to get him this injection and see how much relief he is getting. If he does not get much relief then I suspect Dr. Barakat will o ffer him the surgery discussed above. The surgery we discussed above has already been discu ssed with Dr. Barakat as he was looking at this gentlemen's MRI. I, Cecil Hensley PA-C, personally performed the services described in this documentati on, as scribed by ROBERTA Stephens, in my presence, and it is both accurate and complet e. Cecil Hensley PA-C 11/28/18 ELECTRONICALLY SIGNED BY: Cecil Hensley PA-C, 11/28/2018 9:13 documented in thi s encounter Plan of Treatment Not on filedocumented as of this encounter Visit Diagnoses + + | Diagnosis | + + | Chronic bilateral low back pain without sciatica - Primary | + + | Pain in both lower extremities | + + | Cervicalgia | + + | S/P cervical spinal fusion Arthrodesis status | + + | Lumbar radiculopathy Thoracic or lumbosacral neuritis or radiculitis, unspecified | + + | Lumbar foraminal stenosis Spinal stenosis, lumbar region, without neurogenic | | claudication | + + documented in this encounter
--- OUTSIDE RECORDS SUMMARY | ~2020-03-18 | XMS | Encounter Summary ---
Demographics + + + | Address | [address] | | | [place] [address] | + + + | Home Phone | | + + + | Preferred Language | Unknown | + + + | Marital Status | | + + + | Hinduism Affiliation | Unknown | + + + | Race | White | + + + | Ethnic Group | Not or | + + + Author + + + | Author | [facility] | | | and [place] | + + + | Organization | [facility] | | | [...] Team Providers + +------+ + | Care Timber Rider Name | Role | Phone | + +------+ + | Gary Gomez MD | PCP | | + +------+ + Reason for Visit +--------+--------+ + | Reason | Onset | Comments | | | Date | | +--------+--------+ + | Other | 06/03/ | | | | 2015 | | +--------+--------+ + Encounter Details +--------+ + + + + | Date | Type | Department | Care Team | Description | +--------+ + + + + | 06/03/ | Telephone | [facility] [place] | Cecil Hensley, | Other | | 2015 | | NEUROSURGERY [address] | PA-C [address] | | | | | [address] | [address] [place] | | | | | [place], [place] | [place] [address] | | | | | [address] | [phone] | | | | | [phone] | | | +--------+ + + + [...] this encounter Miscellaneous Notes Telephone Encounter - Alexey Dorsey - 06/03/2016 9:29 AM PSTPatient returned call. He will get xrays done before appt. TTelephone Encounter - Marilu Parr Cert MA - 06/03/2016 9:22 AM PSTVM left for patient r equesting a call back. He needs to complete XR's prior to an appointment with Physiatry. MARILU PARR documented in this encounter Plan of Treatment Not on filedocumented as of this encounter Visit Diagnoses Not on filedocumented in this encounter"
--- OUTSIDE RECORDS SUMMARY | ~2020-03-18 | XMS | Encounter Summary ---
Demographics + + + | Address | [address] | | | [place] [address] | + + + | Home Phone | | + + + | Preferred Language | Unknown | + + + | Marital Status | | + + + | Methodist Affiliation | Unknown | + + + | Race | White | + + + | Ethnic Group | Not or | + + + Author + + + | Author | [facility] | | | and [place] | + + + | Organization | [facility] | | [...] Team Providers + +------+ + | Care General Practice Name | Role | Phone | + +------+ + | Gary Gomez MD | PCP | | + +------+ + Reason for Visit + +--------+ + | Reason | Onset | Comments | | | Date | | + +--------+ + | Referral (Follow up) | 05/20/ | Ongoing Neck Pain | | | 2015 | | + +--------+ + Encounter Details +--------+ + + + + | Date | Type | Department | Care Team | Description | +--------+ + + + + | 05/20/ | Telephone | [facility] | Aleksander Stern, | Referral (Follow up) | | 2016 | | NEUROSURGERY [address] | DO [address] | (Ongoing Neck Pain) | | | | [address] | [address] [place], [place] | | | | | [place], [place] | [id number] | | | | | [address] | | | | | | [phone] | | | +--------+ + + + [...] this encounter Miscellaneous Notes Telephone Encounter - Nohemi Fagan - 05/24/2016 11:13 AM PDTLVM with appointment idalmis deluca. Asked for a return call. A M PDTTelephone Encounter - Marilu Tafoya Cert MA - 05/24/2016 9:[address] Stern: Schedule PA visit with 4vw cervical XR prior Notes given to front office help staff for scheduling. MARILU TAFOYA elephone Encounte Marilu Duong Cert MA - 05/21/2016 1:[address] Stern's inbox for shahid louise elephone Encounte Marilu Duong Cert MA - 05/20/2016 1:30 PM PDTI did not see the notes in my in-basket. Once received I will forward to Dr. Stern for review. MARILU TAFOYA elephone Tomy Damon - 05/20/2016 12:47 PM PDTIncoming referral received from Tommy key MD ([facility]) for Dx: Ongoing Neck Pain. Patient had c-spine surgery with Dr. Giles root on 01/08/2016 and was last seen by Cecil on 01/05/2016. The plan at that time was: PLAN: Overall, the patient is overall doing as expected. Patient definitely has improvements in his overall condition compared to prior before surgery. It is not completely surprising t hat some of his symptoms remain. I am recommending that we send him for physical therapy t o help address some of his paracervical neck pain, trapezius pain, and hopefully some of the weakness in his right arm. Surgically, it is highly unlikely that there is more to do on his neck. I'm not certain what was causing his upper thoracic rib pain. I explained that it is high ly unlikely that a rib is popping out. Patient could have possibly been experiencing some transient upper thoracic radiculopathy. It is also possible that he was experiencing sympt oms that could be related to shingles. Either way, the current time, it seems that these s ymptoms have gone away. Therefore, we will watch this conservatively and consider an MRI i f his symptoms return . The cervical fusion appears to have progressed as planned. The his preoperative symptoms are improved at least to some degree. Patient will follow up with us on an as-needed bas is depending on how well he does following his physical therapy and if symptoms in his left rib cage near the axilla return ELECTRONICALLY SIGNED BY: YUNIER Jacinto, 01/05/2016 15:09 Chart notes placed in Marilu's in-box for review. Note: [employer] [facility] Authorization #: [id number] - Valid Dates: Appt date + 180-days - Aut horized # of visits: 10/26 - Claim createdElectronically signed by Tomy Khanna at 2015 12:55 PM PDTdocumented in this encounter Plan of Treatment Not on filedocumented as of this encounter Visit Diagnoses Not on filedocumented in this encounter"
--- OUTSIDE RECORDS SUMMARY | ~2020-03-18 | XMS | Encounter Summary ---
Demographics + + + | Address | [address] | | | [place] [address] | + + + | Home Phone | | + + + | Preferred Language | Unknown | + + + | Marital Status | | + + + | Rastafarian Affiliation | Unknown | + + + | Race | White | + + + | Ethnic Group | Not or | + + + Author + + + | Author | [facility] | | | and [place] | + + + | Organization | [facility] | | | [...] Providers + +------+ + | Care Building Maintenance Repairer Name | Role | Phone | + [...] Closed | | Radiology | Diagnoses | Jarred, | Tisha Mri | | | | | Right sided | Aleksander Jewell DO | [address] | | | | | weakness | [address] | [place], | | | | | Procedures | [address] | [place] | | | | | MRI Thoracic | [place] | [address] | | | | | Spine wo | [id number] | Phone: | | | | | Contrast | Phone: | [phone] | | | | | | [phone] | Fax: | | | | | | Fax: | [phone] | | | | | | [phone] | | +--------+--------+ + + + + [...] | +--------+ + + + + | 12/11/ | [facility] | [facility] | Aleksander Stern, | Right sided weakness | | 2015 | Encounter | MED [facility] MRI [address] | DO [address] | | | | | [place], | [address] | | | | | [place] [address] | [id number] | | | | | [phone] | | | +--------+ + + + [...] | + +--------+ + + + | MRI THORACIC SPINE | Routin | 12/11/2014 | Right sided | Results for this | | WO CONTRAST | e | 4:20 PM | weakness | procedure are in the | | | | PDT | | results section. | + +--------+ + + + documented in this encounter Results MRI Thoracic Spine wo Contrast (12/11/2014 4:20 PM PDT) + + | Specimen | + + | | + + + + + | Narrative | Performed At | + + + | UNENHANCED MRI THORACIC SPINE 12/11/2014 3:40 PM CLINICAL | [facility] | | HISTORY: Leg pain and weakness not explained by MRI of the lumbar | [facility] | | spine. COMPARISON: Brain MRI from the same day, [facility] | | radiographs November 06, cervical MRI January 2014, lumbar MRI July 2013 | - IMAGING | | TECHNIQUE:? The following 3T MR sequences of the thoracic spine | | | were obtained: 1. ?Sagittal T1. 2.? Axial , coronal and sagittal T2. | | | 3.? Sagittal STIR. FINDINGS: Small Schmorl's nodes are present | | | within multiple mid to lower thoracic vertebral endplates. Thoracic | | | vertebral height and alignment are otherwise maintained, without | | | evident fracture or spondylolisthesis. Disc space narrowing and | | | Modic endplate hyperintensity are again visible at T4-5. Less | | | pronounced Modic endplate hyperintensity is present at T6-7 as well. | | | A right foraminal disc protrusion is again visible at T2-3 and | | | results in moderate narrowing of the right neural foramen. | | | Posterior disc bulges are present throughout the mid to lower | | | thoracic spine and results in fairly mild central canal stenosis. | | | Mild to moderate neuroforaminal narrowing is also present at T4-5 | | | and T6-7. Reversal of the cervical lordosis is again visible. | | | Cervical degenerative disc disease and vertebral spondylosis are | | | most pronounced at C5-6, C6-7 and C7-T1, with at least mild to | | | moderate central canal stenosis again suggested at these levels on | | | provided large [id number] sagittal images through the region. | | | Prominent, asymmetric left-sided facet hypertrophy is again visible in | | | the upper cervical spine, although the neural foramina are not well | | | evaluated on the images provided. The spinal cord demonstrates | | | grossly normal signal intensity and caliber. The conus medullaris | | | is positioned beyond the L1 level and is not imaged. Artifact from | | | presumed surgical anchors is noted in the left scapular glenoid. | | | Imaged paraspinal, intrathoracic and upper abdominal structures are | | | otherwise unremarkable. IMPRESSION - 1. MULTILEVEL THORACIC | | | DEGENERATIVE DISC DISEASE AND SPONDYLOSIS WITH FAIRLY MILD CENTRAL | | | CANAL STENOSIS AND MILD TO MODERATE NEUROFORAMINAL STENOSIS | | | DESCRIBED. 2. MULTILEVEL CERVICAL DEGENERATIVE DISC DISEASE AND | | | SPONDYLOSIS WITH REVERSAL OF THE CERVICAL LORDOSIS AND AT LEAST MILD | | | TO MODERATE CENTRAL CANAL STENOSIS VISIBLE ON PROVIDED LARGE | | | [id number] SAGITTAL IMAGES THROUGH THE REGION. ASYMMETRIC | | | LEFT-SIDED FACET HYPERTROPHY IS ALSO NOTED IN THE IMAGED UPPER | | | CERVICAL SPINE. CONSIDER DEDICATED CERVICAL MRI IF MORE COMPLETE | | | EVALUATION IS DESIRED. Dictated and Signed by: Anderson Moore MD | | | Electronically signed: 12/11/2014 4:55 PM | | + + + + + | Procedure Note | + + | [facility], Rad Results In - 12/11/2014 4:58 PM PDT UNENHANCED MRI THORACIC SPINE 12/11/2014 | | 3:40 PMCLINICAL HISTORY: Leg pain and weakness not explained by MRI of the lumbarspine. | | COMPARISON: Brain MRI from the same day, cervical radiographs November 06, cervicalMRI | | January 2014, lumbar MRI July 2013TECHNIQUE:? The following 3T MR sequences of the | | thoracic spine were obtained:1. ?Sagittal T1.2.? Axial , coronal and sagittal T2.3.? | | Sagittal STIR.FINDINGS: Small Schmorl's nodes are present within multiple mid to | | lowerthoracic vertebral endplates. Thoracic vertebral height and alignment areotherwise | | maintained, without evident fracture or spondylolisthesis. Disc spacenarrowing and | | Modic endplate hyperintensity are again visible at T4-5. Lesspronounced Modic endplate | | hyperintensity is present at T6-7 as well. A rightforaminal disc protrusion is again | | visible at T2-3 and results in moderatenarrowing of the right neural foramen. Posterior | | disc bulges are presentthroughout the mid to lower thoracic spine and results in fairly | | mild centralcanal stenosis. Mild to moderate neuroforaminal narrowing is also present | | atT4-5 and T6-7.Reversal of the cervical lordosis is again visible. Cervical | | degenerative discdisease and vertebral spondylosis are most pronounced at C5-6, C6-7 and | | C7-T1,with at least mild to moderate central canal stenosis again suggested at | | theselevels on provided large [id number] sagittal images through the region. | | Prominent, asymmetric left-sided facet hypertrophy is again visible in the uppercervical | | spine, although the neural foramina are not well evaluated on theimages provided.The | | spinal cord demonstrates grossly normal signal intensity and caliber. Theconus | | medullaris is positioned beyond the L1 level and is not imaged.Artifact from presumed | | surgical anchors is noted in the left scapular glenoid. Imaged paraspinal, intrathoracic | | and upper abdominal structures are otherwiseunremarkable.IMPRESSION -1. MULTILEVEL | | THORACIC DEGENERATIVE DISC DISEASE AND SPONDYLOSIS WITH FAIRLYMILD CENTRAL CANAL | | STENOSIS AND MILD TO MODERATE NEUROFORAMINAL STENOSIS ASDESCRIBED.2. MULTILEVEL | | CERVICAL DEGENERATIVE DISC DISEASE AND SPONDYLOSIS WITH REVERSALOF THE CERVICAL LORDOSIS | | AND AT LEAST MILD TO MODERATE CENTRAL CANAL STENOSISVISIBLE ON PROVIDED LARGE | | [id number] SAGITTAL IMAGES THROUGH THE REGION. ASYMMETRIC LEFT-SIDED FACET | | HYPERTROPHY IS ALSO NOTED IN THE IMAGED UPPERCERVICAL SPINE. CONSIDER DEDICATED | | CERVICAL MRI IF MORE COMPLETE EVALUATION ISDESIRED.Dictated and Signed by: Anderson Moore, | | MD Electronically signed: 12/11/2014 4:55 PM | | | |The spinal cord demonstrates grossly normal signal intensity and caliber. The | |conus medullaris is positioned beyond the L1 level and is not imaged. | | | |Artifact from presumed surgical anchors is noted in the left scapular glenoid. | |Imaged paraspinal, intrathoracic and upper abdominal structures are otherwise | |unremarkable. | | | |IMPRESSION - | |1. MULTILEVEL THORACIC DEGENERATIVE DISC DISEASE AND SPONDYLOSIS WITH FAIRLY | |MILD CENTRAL CANAL STENOSIS AND MILD TO MODERATE NEUROFORAMINAL STENOSIS | |DESCRIBED. | | | |2. MULTILEVEL CERVICAL DEGENERATIVE DISC DISEASE AND SPONDYLOSIS WITH REVERSAL | |OF THE CERVICAL LORDOSIS AND AT LEAST MILD TO MODERATE CENTRAL CANAL STENOSIS | |VISIBLE ON PROVIDED LARGE [id number] SAGITTAL IMAGES THROUGH THE REGION. | |ASYMMETRIC LEFT-SIDED FACET HYPERTROPHY IS ALSO NOTED IN THE IMAGED UPPER | |CERVICAL SPINE. CONSIDER DEDICATED CERVICAL MRI IF MORE COMPLETE EVALUATION IS | |DESIRED. | | | |Dictated and Signed by: Anderson Moore MD | | Electronically signed: 12/11/2014 4:55 PM | + + + + + + + | Performing | Address | City/State/Zipcode | Phone Number | | Organization | | | | + + + + + | [facility] | [address] | [place] | [phone] | | [facility] | | [id number] | | | - IMAGING | | | | + + + + + documented in this encounter Visit Diagnoses + + | Diagnosis | + + | Right sided weakness Muscle weakness (generalized) | + + documented in this encounter"
--- OUTSIDE RECORDS SUMMARY | ~2020-03-18 | XMS | Encounter Summary ---
Demographics + + + | Address | [address] | | | [place] [address] | + + + | Home Phone | | + + + | Preferred Language | Unknown | + + + | Marital Status | | + + + | Episcopalian Affiliation | Unknown | + + + | Race | White | + + + | Ethnic Group | Not or | + + + Author + + + | Author | [facility] | | | and [place] | + + + | Organization | [facility] | | | [...] Team Providers + +------+ + | Care Chief Estimator Name | Role | Phone | [...] | | | | | | | CHEST PAIN | | | | | | | ,CAD, ABN | | | | | | | STRESS | | | | | | | Procedures | | | | | | | CV LHC | | | +--------+--------+ + + + + Encounter Details +--------+---------+ + + + | Date | Type | Department | Care Team | Description | +--------+---------+ + + + | 12/23/ | Surgery | [facility] | Latonia Gallardo, | CV [facility] | | 2017 | | MED CTR CV INTRA OP | MD [address] | | | | | [address] | [place] | | | | | [place] | [id number] | | | | | [address] | | | | | | [phone] | | | +--------+---------+ + + + [...] + + + | Blood Pressure | 117/71 | 12/23/2016 9:00 AM | | | | | PDT | | + + + + + | Pulse | 71 | 12/23/2016 9:00 AM | | | | | PDT | | + + + + + | Temperature | 36.3 C (97.3 F) | 12/23/2016 8:45 AM | | | | | PDT | | + + + + + | Respiratory Rate | 15 | 12/23/2016 9:00 AM | | | | | PDT | | + + + + + | Oxygen Saturation | 94% | 12/23/2016 9:00 AM | | | | | PDT | | + + + + + | Inhaled Oxygen | - | - | | | Concentration | | | | + + + + + | Weight | 104.3 kg (230 lb) | 12/23/2016 6:10 AM | | | | | PDT | | + + + + + | Height | 188 cm (6' 2") | 12/23/2016 6:10 AM | | | | | PDT | | + + + + + | Body Mass Index | 28.22 | 12/23/2016 6:10 AM | | | | | PDT [...] encounter Discharge Summaries Latonia Gallardo MD - 12/24/2016 7:18 AM PDTFormatting of this note might be different fr om the original. DISCHARGE SUMMARY PATIENT NAME/: Jose Raul Maldonado, (1960) DATE OF ADMISSION: 12/23/2016 DATE OF DISCHARGE: 12/24/2016 DISCHARGING PHYSICIAN: Latonia Gallardo MD ADMITTING DIAGNOSIS: Unstable angina (HCC) PRIMARY CARE PROVIDER: Tommy Gomez MD DISPOSITION: Discharge to home BRIEF HOSPITAL COURSE: Please see the history and physical at the time of admission. Briefly, Mr. Maldonado is a 55 y.o. male who was admitted on 12/23/2016 with Unstable angina (HCC). He had been scheduled for a left heart cath due to an episode of chest discomfort and an ab normal stress test in the interim, he developed resting chest pain consistent with unstable angina. He had prolonged episode of resting pain 2 days prior to admission. He did not take nitrog lycerin because his", blood pressure was okay". He was brought to the cardiac catheterization laboratory and was found to have a 80% stenos is of the origin of his posterior descending coronary . A drug-eluting stent was placed. We discussed the possibility that Brilinta may be causing him to have a sensation of breath lessness complicating his severe oxygen dependent COPD. A copy of this will be sent to Dr. Gomez at the [facility] to consider switching the patient to Eff ient 10 mg a day. I am hesitant to switch him to Plavix as he had an episode of stent throm bosis. On 12-24-16. The patient felt ready for discharge. His cath was completed from the radial. Given his orthopedic issues this was uncomfortable for him. 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 Unknown Bilateral arm pain 08/22/2016 Unknown Thoracic radiculopathy 08/17/2016 Unknown S/P cervical spinal fusion 01/21/2015 Unknown COPD (chronic obstructive pulmonary disease) Unknown Asthma Unknown Thyroid disease Unknown Hyperlipidemia Yes Diverticulitis Unknown Hernia, hiatal Unknown Anxiety Unknown Emphysema of lung Unknown Hypertension Yes Migraine Unknown Neuropathy Unknown History of tobacco use Unknown Hepatitis C Unknown Restless leg syndrome Unknown VITALS: Temp: 35.9 C (96.6 F) BP: 109/64 Pulse: 58 Resp: 18 SpO2: 97 % WEIGHT: Today's Weight: 99.7 kg (219 lb 12.8 oz) Admit Weight: 104.3 kg (230 lb) BRIEF EXAM TODAY: General Appearance - alert, in no distress Heart - regular rate and rhythm, S1 and S2 normal, no murmur, rub, or gallop. Lungs - scattered wheezes Musc/Skel - moves all extremities Extremities - no cyanosis. no significant edema Neurologic - no focal deficits Sheath site - no hematoma CONSULTATION: none DIAGNOSTIC STUDIES: Imaging: Cardiac Cath: 12/23/16 Hemodynamics: Left ventricular end-diastolic pressure (LVEDP) was 26 mm Hg. There was no significant gradient across the aortic valve. Left Ventriculography: EF 60% Mild hypokinesis of the distal inferior wall. No MR. Left main coronary artery: Normal Left anterior descending coronary artery: 20% proximal and mid. Large artery Circumflex coronary artery: Small artery no significant disease. Right coronary artery: No restenosis in the stented segment. Origen of the PDA 80%. Mid PDA 20-30%. Following stent implantation no residual stenosis. RUPA 3 flow. Post Intervention: No residual stenosis CONCLUSIONS: 1- 80% PDA stented with a Promus RENETTA 2- no restenosis of the previous RCA stents 3- normal Left Main 4- LAD with multiple 20% lesions 5- LCX - small nondominant with non obstructive disease CLINICAL IMPRESSIONS AND RECOMMENDATIONS: The patient should remain on dual antiplatelet therapy for the rest of the planned year. ECG: Selected Labs: No results for input(s): WBC, HGB, HCT, PLT, NA, K, BUN, CREA, GLU, MG, CALCIUM, TSH, INR i n the last 168 hours. No results for input(s): BNP, HDL, LDL, TRIG in the last 168 hours. Invalid input(s): CKTOTAL, TROPONINI Recent Results (from the past 24 hour(s)) ECG 12 lead Collection Time: 12/23/16 11:08 Result Value Ref Range VENTRICULAR RATE EKG 71 BPM ATRIAL RATE 71 BPM P-R INTERVAL 138 ms QRS DURATION 90 ms Q-T INTERVAL 408 ms Q-T INTERVAL (CORRECTED) 443 ms P WAVE AXIS 57 degrees QRS AXIS -5 degrees T AXIS -28 degrees INTERPRETATION TEXT Normal sinus rhythm Increased R/S ratio in V1, consider early transition or posterior infarct T wave abnormality, consider inferior ischemia Abnormal ECG When compared with ECG of 05-NOV-2016 06:33, fusion complexes are no longer present Confirmed by LATONIA GALLARDO MD ([id number]) on 12/23/2016 1:17:54 PM CK Total Collection Time: 12/24/16 3:26 Result Value Ref Range CK TOTAL 67 22 - 269 U/L MEDS: Discharge Medications New Medications Details prasugrel 10 mg Tabs Take 1 tablet by mouth Daily. aka: EFFIENT Changed Medications Details gabapentin 300 mg capsule Take 2 capsules by mouth 3 times daily. What changed: how much to take aka: NEURONTIN Unchanged Medications Details aspirin 81 MG EC tablet Notes to patient: For heart Take 1 tablet by mouth Daily. atorvaSTATin 80 MG tablet Notes to patient: For chloesterol Take 1 tablet by mouth nightly. Do not take for a week aka: LIPITOR busPIRone 15 mg tablet Notes to patient: For mood Take 15 mg by mouth 2 times daily. aka: BUSPAR calcium carbonate 500 mg chewable tablet Take 1 tablet by mouth Daily as needed for Heartburn. aka: TUMS cyclobenzaprine 10 mg tablet Take 10 mg by mouth Twice daily as needed for Muscle spasms. aka: FLEXERIL famotidine 20 mg tablet Notes to patient: For stomach acid Take 20 mg by mouth 2 times daily. aka: PEPCID fluticasone-salmeterol 500-50 mcg/puff diskus inhaler Inhale 1 puff into the lungs Twice Daily. aka: ADVAIR HYDROcodone-acetaminophen 10-325 mg per tablet Take 1-2 tablets by mouth 3 times daily as needed for Pain. Max of 4 tabs daily aka: NORCO ipratropium 17 mcg/puff inhaler Inhale 2 puffs into the lungs 4 times daily. aka: ATROVENT HFA levalbuterol 1.25 mg/3 mL nebulizer solution Take 1 ampule by nebulization 3 times daily. aka: XOPENEX levalbuterol 45 mcg/puff inhaler Inhale 1 puff into the lungs EVERY 4 TO 6 HOURS NEEDED for Wheezing. aka: XOPENEX HFA levothyroxine 175 MCG tablet Notes to patient: For thyroid replacement Take 175 mcg by mouth every morning (before breakfast). aka: SYNTHROID, LEVOTHROID metoprolol tartrate 100 mg tablet Take 0.5 tablets by mouth 2 times daily. aka: LOPRESSOR nitroglycerin 0.[address] 1 tablet under the tongue every 5 minutes as needed for Chest pain. aka: NITROSTAT omeprazole 20 mg capsule Notes to patient: For stomach acid Take 20 mg by mouth 2 times daily. aka: priLOSEC oxygen Inhale 2 L into the lungs continuous. rOPINIRole 0.5 MG tablet Take 0.5 mg by mouth nightly as needed (restless leg). aka: REQUIP Discontinued Medications colchicine 0.6 mg tablet PATIENT INSTRUCTIONS: ACTIVITY: For 24 Hours: Do NOT drive For 2 days: Do NOT lift more than 1 pound with the affected arm. Keep the wrist dry, clean. No dishwashing, hot tub. Avoid wrist movement such as bike riding, golf. For 5 days: Avoid vigorous exercise that uses the affected arm. Pain It is common to be sore for 1 to 2 days at the catheter insertion site. You may take ac etaminophen (Tylenol) for pain relief. Follow the dosing instructions on the package. Take your regular aspirin as prescribed. Do NOT take other products that contain aspirin. Do NOT take other anti-inflammatory pr oducts such as ibuprofen (Advil, Motrin) or naproxen (Aleve, Naprosyn). They may cause incr eased bleeding. If you have severe pain at the catheter site, call your provider. Site Care You may remove the dressing or bandage the day after your procedure. Keep site clean and dry. Clean the site gently with mild soap and water. Re-apply a cl gerry Band-Aid, if needed. It is normal to have a small bruise or lump at the insertion site. You may shower the day after your procedure, but avoid tub baths, hot tubs or swimming f or the next 2 days. Inspect the site everyday for infection. (see " When to Call for Help" on the next page ) Fluids Drink an extra 2 quarts of water, in addition to your normal fluid intake in the next 24 hours. This helps the body eliminate the contrast dye given to you during your procedure. If you are on a fluid restriction follow orders from your physician. When to Call for Help If you have bleeding at the site, apply pressure to the site with clean fingers for 10 jennifer frieda. If the bleeding does not stop in 10 minutes, or there is a large amount of bleeding, rosaura l 9-1-1. Continue to apply pressure over the site until help arrives. If the bleeding stops, sit quietly for 2 hours while you keep the affected wrist straigh t. Call the pyridine recovery operator who did your procedure as soon as possible. DIET: cardiac diet FOLLOW-UP: Follow up with Whitney the week of the 10 of January. Time spent on discharge planning: less than [address] Gomez please consider change to Effient 10 mg a day. Patient wonders if Zan is chong ing him breathless. Electronically signed by Latonia Gallardo MD at 0611/2016 4:18 PM PDTdocumented in this encounter Discharge Instructions Instructions Latonia Gallardo MD - 12/24/2016For 24 Hours: Do NOT drive For 2 days: Do NOT lift more than 1 pound with the affected arm. Keep the wrist dry, clean. No dishwashing, hot tub. Avoid wrist movement such as bike riding, golf. For 5 days: Avoid vigorous exercise that uses the affected arm. Pain It is common to be sore for 1 to 2 days at the catheter insertion site. You may take ac etaminophen (Tylenol) for pain relief. Follow the dosing instructions on the package. Take your regular aspirin as prescribed. Do NOT take other products that contain aspirin. Do NOT take other anti-inflammatory pr oducts such as ibuprofen (Advil, Motrin) or naproxen (Aleve, Naprosyn). They may cause incr eased bleeding. If you have severe pain at the catheter site, call your provider. Site Care You may remove the dressing or bandage the day after your procedure. Keep site clean and dry. Clean the site gently with mild soap and water. Re-apply a cl gerry Band-Aid, if needed. It is normal to have a small bruise or lump at the insertion site. You may shower the day after your procedure, but avoid tub baths, hot tubs or swimming f or the next 2 days. Inspect the site everyday for infection. (see " When to Call for Help" on the next page ) Fluids Drink an extra 2 quarts of water, in addition to your normal fluid intake in the next 24 hours. This helps the body eliminate the contrast dye given to you during your procedure. If you are on a fluid restriction follow orders from your physician. When to Call for Help If you have bleeding at the site, apply pressure to the site with clean fingers for 10 jennifer frieda. If the bleeding does not stop in 10 minutes, or there is a large amount of bleeding, rosaura l 9-1-1. Continue to apply pressure over the site until help arrives. If the bleeding stops, sit quietly for 2 hours while you keep the affected wrist straigh t. Call the pyridine recovery operator who did your procedure as soon as possible. Other Concerns Call the pyridine recovery operator who did your procedure if you have: Any of these Signs of Infection: Redness Fever higher than 101.5 degrees F or 38.6 degrees C Change in the bruise or lump. Numbness in your arm or wrist. Severe pain that is not relieved by Tylenol. Follow-up Care Continue your prescribed medications unless instructed otherwise. Follow-up with your primary health care provider and pyridine recovery operator after your procedure, as instructed. If you have questions or concerns about your cardiac catheterization procedure, call the number below. [phone] documented in this encounter Medications at Time [...] tablet by | 90 | 3 | 12/25/19 | | | (EFFIENT) 10 mg TABS | mouth Daily. | tablet | | 17 | 7 | + + + +---------+ + + documented as of this encounter H&P Notes Latonia Gallardo MD - 12/22/2016 2:12 PM PDTFormatting of this note might be different fr om the original. Admission H&P Referring Provider:[facility] Dr Gomez Primary Clinical Secretary: Whitney Reason for Admission: Unstable Angina and abnormal stress test 12/22/2016 Jose Raul Maldonado is a 55 y.o. male History of Present Illness: Please see the history and physical at the time of admission. Briefly, Mr. Maldonado is a 55 y.o. male who was admitted on 11/03/[address] elevation myocardial infarction involving r ight coronary artery. He was brought by ambulance to the ED after he began to complain of c hest pain while at the [facility]. The pain was substernal in location and radiated to both axilla a nd down both arms, to the xyphoid process, and to the back. He describes the pain as "crushi ng, ripping, and sharp" in quality. He says that at its most severe, the pain was a 14-15/10 . Bill was taken to the slab lifting engineer where his RCA was 100% occluded. This was stented with DE S stents. He experienced a stent thrombosis and was returned to the slab lifting engineer. A stent was placed and IVUS was performed. He was given IC integrelin. He had no further ischemia. He developed post NJ pericarditis. He was started on colchicine and this resolved. Given his stent thrombosis he was discharged on Brilinta 90 mg BID. He generally has felt quite well following his discharge. He did have an episode while lift ing stoves off a truck and had severe chest pain. He stopped and this went away. He underwent a Cardiolite: Abnormal Persantine Sestamibi myocardial perfusion study with a medium-sized, fixed defec t of a moderate severity of the mid inferior and distal inferior and apex. This suggests a potential myocardial scar of the right coronary artery territories. Although, inferior wall soft tissue attenuation cannot be completely ruled out. Gated SPECT reveals a normal left v entricular wall thickness and motion. Preserved left ventricular systolic function. LVEF by gated SPECT is 56 %. He has continued to have chest pain every couple of days. His last episode happened at res t. The pain lasted for an hour. He did not take NTG because his blood pressure was OK. He has not had an bleeding. He has had a dermatitis of sun exposed areas that is hard fluid filled nodules. He wonders if it is related to a medication. Past Medical History: Past Medical History: Diagnosis Date Anxiety Asthma COPD (chronic obstructive pulmonary disease) (HCC) Diverticulitis Emphysema of lung (HCC) Hepatitis C Hernia, hiatal History of tobacco use Hyperlipidemia Hypertension Migraine Neuropathy (HCC) Restless leg syndrome Thoracic radiculopathy 08/17/2016 Thyroid disease Thyroid disease Current Medications: No current facility-administered medications on file prior to encounter. Current Outpatient Prescriptions on File Prior to Encounter Medication Sig Dispense Refill aspirin 81 MG EC tablet Take 1 tablet by mouth Daily. 30 tablet atorvaSTATin (LIPITOR) 80 MG tablet Take 1 tablet by mouth nightly. Do not take for a w lower brule 30 tablet 11 busPIRone (BUSPAR) 15 mg tablet Take 15 mg by mouth 2 times daily. calcium carbonate (TUMS) 500 mg chewable tablet Take 1 tablet by mouth Daily as needed for Heartburn. colchicine 0.6 mg tablet Take 1 tablet by mouth 2 times daily. (Patient not taking: Rep orted on 12/22/2016) 14 tablet 0 cyclobenzaprine (FLEXERIL) 10 mg tablet Take [...] 1 tablet by mouth 2 times daily. ([place] ricketts taking differently: Take 50 mg by mouth 2 times daily.) 60 tablet 11 nitroglycerin (NITROSTAT) 0.4 mg SL tablet [...] mouth 2 times daily. 60 tablet 1 Allergies: Allergies Allergen Reactions Doxycycline Anaphylaxis Throat swelling Adhesive & Tape Rash Albuterol Anxiety Caused severe anxiety. Aspirin Other (See Comments) Ulceration of stomach Latex Itching and Rash Family History: Family History Problem Relation Age [...] attack Maternal Grandfather 55 Hypertension Maternal Grandmother Crohn's disease Sister Other (see comment) Sister [...] Sister Other (see comment) Sister myasthenia gravis Seizures Paternal Aunt epilepsy Hypertension Paternal Aunt Diabetes Paternal Aunt Early Paternal Aunt 19 Hypertension Maternal Uncle Alcohol abuse Maternal Uncle Heart disease Maternal Uncle Heart attack Maternal Uncle Heart failure Maternal Aunt Other (see comment) Maternal Aunt No Known Problems Child No Known Problems Child Social History: Social History Social History Marital status: Spouse name: QUINCY MALDONADO Number of children: 2 Years of education: N/A Occupational History RETIRED Social History Main Topics Smoking status: Current Some Day Smoker Packs/day: 0.50 Years: 10.00 Types: Cigarettes Smokeless tobacco: Never Used Comment: Trying to quit Alcohol use 0.0 oz/week Comment: rarely Drug use: Frequency: 2.0 times per week Types: Marijuana Comment: Uses edible for sleep on occasion; history of methamphetamine use, 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 Sexual activity: Yes Other Topics Concern Not on file Social History Narrative No narrative on file Review of Systems: As per HPI Reviewed 10 systems, all were negative except as listed in HPI Physical Exam: BP 135/86 | Pulse 82 | Temp 37 C (98.6 F) (Temporal) | Resp 18 | Ht 1.88 m (6' 2") | Wt 104.3 kg (230 lb) | SpO2 94% | BMI 29.53 kg/m General appearance: no acute distress. Eyes: no icterus. Lids normal Mouth: no cyanosis. Neck: No lymphadenopathy in the neck or supraclavicular area. Good carotid upstroke. No bruits. No JVD Lungs: CTA Heart: normal sounds no murmur Abdomen: soft. Ext: No CCE in upper or lower extremities Neuro: Awake and oriented x3 Test Results: Lab yesterday normal Impression/Plan: 1. Unstable angina 2. H/O STEMI 3. COPD Plan: The risk and benefits of appropriate heart catheterization with possible balloons, stents, or other appropriate techniques as indicated were discussed. It was explained that the pos sible complications include but are not limited to , stroke, heart arrest,heart attack, emergency surgery, blood vessel injury possibly requiring surgical repair, site infection, acute kidney failure, and/or reactions to iodine contrast agent or sedatives. termination clerk risk s include re-blockage (restenosis) and stent thrombosis (clotting). The patient's questio ns were answered, and the patient wishes to proceed. Patient is appropriate for conscious se dation. Types of stents were discussed and RENETTA would be most appropriate for this patient.Jasoni karly signed by Latonia Gallardo MD at 12/23/2016 7:18 AM PDTdocumented in this encounter Procedure Notes Latonia Gallardo MD - 12/23/2016 10:02 AM PDTAssociated Order(s): CV CARDIAC PROCEDUREPre- Procedure Diagnose(s): Unstable angina (HCC)Post-Procedure Diagnose(s): ASHD (arteriosclerot ic heart disease) [facility] LEFT CARDIAC CATHETERIZATION AND CORONARY INTERVENTION REPORT PATIENT NAME: Jose Raul Maldonado DATE OF : 1960 DATE OF PROCEDURE: 12/23/2016 PRIMARY CARE PROVIDER: Tommy Gomez MD RUBBER STAMP DIE INSPECTOR: Latonia Gallardo MD, [facility] [place] PRE-PROCEDURE DIAGNOSIS: Unstable Angina POST-PROCEDURE DIAGNOSIS: PDA lesion stented with RENETTA PROCEDURES PERFORMED: 1. Left Heart Catheterization for pressures 2. Coronary Angiography 3. Left Ventriculography 4. Percutaneous coronary intervention PDA CAD Presentation: Unstable Angina Anginal Classification (within 2 weeks): "Class IV" Anti-Anginal med (within 2 weeks): yes Heart Failure (within 2 weeks): no Cardiomyopathy or LV Systolic Dysfunction: no Cardiogenic shock w/in 24 hours: no Pre-operative Evaluation Before Non-Cardiac Surgery: no Cardiac Arrest w/in 24 hours: no Evaluation of valvular heart disease: no Stress or Imaging Studies Performed: yes Echocardiogram no Patient Risk factors: Age 55 y.o. advanced age (older than 55 for men, 65 for women), dyslipidemia, hypertension, male gender and smoking/ tobacco exposure; Diabetes Mellitus on Insulin: no Prior PCI: yes CrCl cannot be calculated (Patient's most recent sCr result is older than the maximum 3 day s allowed.). kidney dx: no Chronic Lung disease: yes BMI: Body mass index is 29.53 kg/m. History of PAD: no Prior history of CVA: no 2. Indication For Coronary Revascularization Please indicate one of the following if PCI is performed: Unstable Angina Appropriate Use Calculator - PCI RUPA Score is 3 or more Intermediate or high risk features for short term risk of or nonfatal NJ Revascularization of the presumed culprit artery Revascularization of multiple coronary arteries when the culprit artery cannot clearly be d etermined Appropriate care Indication 10 Score 8 By AUC criteria, PCI is Appropriate DESCRIPTION OF PROCEDURE: Informed consent was obtained from the patient, and a time-out was performed to verify the patient's identification and planned procedure. Please refer to the computer log entry form for precise details. The patient's right radial artery was then prepped and draped in the usual sterile fashion, and anesthetized with 1% lidocaine. Arterial access was obtained usi ng a micropuncture kit. A 5-Libyan JR4 and JL 3.5 were used to perform angiography. There w as a lesion at the origin of the PDA. The previous stents were wide open. A 6 latvian AR 1 guide catheter was cannulated into the right coronary artery. A GenePeekse extra support wire wa s manipulated through the lesion and positioned into the distal vessel. The lesion was pre dilated with 2.5 X 12 balloon. Next, a 3.0 X 12 Promus RENETTA stent was deployed at the lesion and expanded at 14 royer. Final angiography demonstrated an excellent result with good dista l runoff. A 5 latvian pigtail was advanced and used to measure pressures and perform an LV gram. A pu llback was performed. All catheters were removed. The patient, despite extra doses of Nicardipine and NTG in the radial, did have pain. If t his had been a long case we would have had to switch to the femoral. A TR band occluder device was utilized to achieve hemostasis of the radial artery. There w ere no complications. Anticoagulation:Bivalirudin Estimated blood loss was: 5 cc. Fluro Time: 8.3 min Total Reference Air Kerma: 1195.5 mGy Contrast: 131 mls of Omnipaque 350 Moderate sedation start time: 711. Moderate sedation stop time: 805. ILatonia MD, reviewed the patient's pre-sedation assessment and vital signs, supervised and directe d the Moderate Sedation from administration to patient stabilization for recovery. FINDINGS: Hemodynamics: Left ventricular end-diastolic pressure (LVEDP) was 26 mm Hg. There was no significant g radient across the aortic valve. Left Ventriculography: EF 60% Mild hypokinesis of the distal inferior wall. No MR. Left main coronary artery: Normal Left anterior descending coronary artery: 20% proximal and mid. Large artery Circumflex coronary artery: Small artery no significant disease. Right coronary artery: No restenosis in the stented segment. Origen of the PDA 80%. Mid PDA 20-30%. Following stent implantation no residual stenosis. RUPA 3 flow. Post Intervention: No residual stenosis CONCLUSIONS: 1- 80% PDA stented with a Promus RENETTA 2- no restenosis of the previous RCA stents 3- normal Left Main 4- LAD with multiple 20% lesions 5- LCX - small nondominant with non obstructive disease CLINICAL IMPRESSIONS AND RECOMMENDATIONS: The patient should remain on dual antiplatelet therapy for the rest of the planned year. Electronically authenticated and signed Latonia Gallardo MD 12/23/2016 10:04 Portions of this chart were created with [employer] voice recognition software. Occasional wron g-word or sound-alike substitutions may have occurred due to the inherent limitations of voice recognition software. Please read the chart carefully and recognize, using context, where these substitutions have occurred documented in this e ncounter Miscellaneous Notes Plan of Care - Shahid Dickerson RN - 12/24/2016 8:18 AM PDTPost-stent education was given. Patient Concerns: 1. Patient verbalized that he had cut down to 5 cig's a day and thinks quitting will be eas y. Stated the passing away of 2 family members recently caused him to start again; but also says quitting is no problem for him and he will not smoke when he leaves the hospital. Unfortunately he says "the problem is...(his smokes..., recent deaths...)" lots of exc uses why not to quit. 2. Says he will be compliant with his medication, but wonders if Brilinta caused a blistere d rash on his body when he was exposed to the sun or if it was the statin? Patient says affo rding [facility] not a problem [facility] He also says he will take them. I am concerned he will avoid the Brilinta or Statin based on his perception that they might be causeing a problem. Reported patient concerns to MD. Electronically signed by: Shahid Dickerson RN 12/24/2016 8:20 lan of Care - Elin Ramirez RN - 12/24/2016 5:44 AM PDTProblem: Patient Care Overview (Adult) Goal: Care Team Goals & Evaluation PROBLEM-RELATED GOALS: 1. Pt will be free of chest discomfort by 12/25 2. Pt will tolerate activity without chest discomfort, SOB by 12/25 3. Pt will be free of bleeding complications right radial site, with intact CMS by 12/25 4. Jose Raul will have breath sounds consistent with baseline function throughout stay and reve rse airway bronchospasm when indicated. Reevaluate goal by 12/26/16. STRATEGY TO ACHIEVE GOALS: 1. Bill instructed to notify staff immediately for any chest discomfort, angina symptoms 2. Activity as tolerated, uses 2LNC chronically 3. Assess right radial site for bleeding, alterations in CMS - Administer respiratory medications as ordered and adjust with use of respiratory protocol s. RESTRAINT-RELATED GOALS: STRATEGIES TO ACHIEVE RESTRAINT GOALS: Outcome: Improving Goal Evaluation: Stable overnight. No chestpain. Right wrist access site-WNL. lan of Care - Leslie Muller RRT - 12/24/2016 4:13 AM PDTFormatting of this note might be different from t he original. Problem: Patient Care Overview (Adult) Goal: Care Team Goals & Evaluation PROBLEM-RELATED GOALS: 1. Pt will be free of chest discomfort by 12/25 2. Pt will tolerate activity without chest discomfort, SOB by 12/25 3. Pt will be free of bleeding complications right radial site, with intact CMS by 12/25 4. Jose Raul will have breath sounds consistent with baseline function throughout stay and reve rse airway bronchospasm when indicated. Reevaluate goal by 12/26/16. STRATEGY TO ACHIEVE GOALS: 1. Bill instructed to notify staff immediately for any chest discomfort, angina symptoms 2. Activity as tolerated, uses 2LNC chronically 3. Assess right radial site for bleeding, alterations in CMS - Administer respiratory medications as ordered and adjust with use of respiratory protocol s. RESTRAINT-RELATED GOALS: STRATEGIES TO ACHIEVE RESTRAINT GOALS: Outcome: Unchanged Goal Evaluation: Breath sounds are tight and wheezy throughout, with both inspiratory and expiratory wheezes . The patient states that he gets more relief from the Ipatropium than he does from the Xope nex, in his exhalation. He is on 2 lpm O2 at home, do not titrate. Patient states increase i n work of breathing related to pollens currently in the air. Perhaps it would be appropriate for his PCP to initiate current allergy testing if he hasn't had it. Electronically signed by: Leslie Meneses RRT 12/24/2016 4:10 Severity Score 13 Class 4 Severity Score 0-4 ITEM 0 1 2 3 4 2 Respiratory History No Smoking history Current tobacco use Up to 10 Pack year history. Simple home regimen Known Pulmonary Disease 20 pack year history Complex Home regimen 30+ pack year history Severe Pulmonary Disease or exacerbation 0 Surgery Status (current admission) No surgery Minor surgery Lower abdominal rib fractures Thoracic or uppe r abdominal Thoracic with pulmonary disease or Central Nervous System 1 Chest X-RAY Clear or Normal baseline Unavailable Improving/clearing Abnormal, Unilateral or mild Infiltrates or atelectasis, Chronic changes Infiltrates mild bilateral or unilateral or pleural effusions extensive Inf iltrates, atelectasis or pleural effusions, pneumothorax 2 Respiratory Pattern Regular pattern Respiratory Rate:8-20 Increased Respiratory Rate, labored Dyspnea on exertion, irregular pattern Use of accessory muscles, prolonged expirato ry phase nasal flaring Severe Dyspnea , Purse Lip Breathing, Use of accessory muscles 3 Breath Sounds Clear Diminished unilaterally Diminished bilaterally &/or crackles Wheezing or Rhonchi &/or absent unilateral Absent bilaterally 2 Cough Strong, non productive Moderate, loose, productive Weak, non-productive Weak, ineffective Non-spontaneous or may require suctioning 1 Sputum None Scant / Thin White/clear Moderate Beige/ yellow Large / Thick Dark Green/Brown Copious / Plugs Hemoptysis dawson 0 LOC Alert, oriented, cooperative Disoriented, follows commands Obtunded, arousable, follo ws commands Obtunded, uncooperative, sedated Comatose 2 Oxygen Demand Room air Baseline 1-2 liters 3-6 liters >7 Liters Oxymizer to > 55% 60% or greater Total Severity Score (SS) Class 0-3 1 4-7 2 8-11 3 12-14 4 15+ 5 lan of Lupe - Viviane Mathew RN - 12/23/2016 6:14 PM PDTProblem: Patient Care Overview (Adult) Goal: Care Team Goals & Evaluation PROBLEM-RELATED GOALS: 1. Pt will be free of chest discomfort by 12/25 2. Pt will tolerate activity without chest discomfort, SOB by 12/25 3. Pt will be free of bleeding complications right radial site, with intact CMS by 12/25 STRATEGY TO ACHIEVE GOALS: 1. Bill instructed to notify staff immediately for any chest discomfort, angina symptoms 2. Activity as tolerated, uses 2LNC chronically 3. Assess right radial site for bleeding, alterations in CMS RESTRAINT-RELATED GOALS: STRATEGIES TO ACHIEVE RESTRAINT GOALS: Outcome: Improving Goal Evaluation: Denies any chest discomfort. States headache almost gone since NTP wiped off. CMS intact r ight hand, dressing dry and intact. Air released from TR band per protocol and d/c'd at 133 0. Frequent site and CMS checks per protocol. No complications lan of Care - Rut, Braxton Smith RRT - 12/23/2016 6:03 PM PDT Problem: Patient Care Overview (Adult) Goal: Care Team Goals & Evaluation PROBLEM-RELATED GOALS: STRATEGY TO ACHIEVE GOALS: RESTRAINT-RELATED GOALS: STRATEGIES TO ACHIEVE RESTRAINT GOALS: Outcome: Unchanged Goal Evaluation: Jose Raul feels that his breathing is improving [facility]. He has an "allergy" to albuterol, so Levalbuterol is being used at il s insistence. Peak flows are improving from 190 to 300. Lungs sound dim throughout with some transient wheezes. SpO2: 93 % on 2liters/minute nasal cannula. Severity Score 11 Class 4 Severity Score 0-4 ITEM 0 1 2 3 4 1 Respiratory History No Smoking history Current tobacco use Up to 10 Pack year history. Simple home regimen Known Pulmonary Disease 20 pack year history Complex Home regimen 30+ pack year history Severe Pulmonary Disease or exacerbation 0 Surgery Status (current admission) No surgery Minor surgery Lower abdominal rib fractures Thoracic or uppe r abdominal Thoracic with pulmonary disease or Central Nervous System 1 Chest X-RAY Clear or Normal baseline Unavailable Improving/clearing Abnormal, Unilateral or mild Infiltrates or atelectasis, Chronic changes Infiltrates mild bilateral or unilateral or pleural effusions extensive Inf iltrates, atelectasis or pleural effusions, pneumothorax 2 Respiratory Pattern Regular pattern Respiratory Rate:8-20 Increased Respiratory Rate, labored Dyspnea on exertion, irregular pattern Use of accessory muscles, prolonged expirato ry phase nasal flaring Severe Dyspnea , Purse Lip Breathing, Use of accessory muscles 3 Breath Sounds Clear Diminished unilaterally Diminished bilaterally &/or crackles Whee zing or Rhonchi &/or absent unilateral Absent bilaterally 1 Cough Strong, non productive Moderate, loose, productive Weak, non-productive Weak, ineffective Non-spontaneous or may require suctioning 2 Sputum None Scant / Thin White/clear Moderate Beige/ yellow Large / Thick Dark Green/Brown Copious / Plugs Hemoptysis dawson 0 LOC Alert, oriented, cooperative Disoriented, follows commands Obtunded, arousable, f ollows commands Obtunded, uncooperative, sedated Comatose 1 Oxygen Demand Room air Baseline 1-2 liters 3-6 liters >7 Liters Oxymizer to > 55% 60% or greater Total Severity Score (SS) Class 0-3 1 4-7 2 8-11 3 12-14 4 15+ 5 eICU Note - Sarah Mathew RN - 12/23/2016 4:27 PM PDTNTG paste removed, wiped off due to pt complaints of he adache. Denies chest discomfort 4:2 7 PM PDTPlan of Care - Sona May RN - 12/23/2016 10:13 AM PDTProblem: Discharge Plan jesus Goal: Patient's discharge needs will be identified in a timely manner Outcome: Improving Discharge planning; Bill lives in [place] with his . He is retired. His is benji eng. He was here in October 2016 for STEMI with stent. Had a new stent placed yesterday, sten t total up to 4. At baseline he is independent in ADLs and mobility. He uses home O2, vende d through [place]. PCP Dr. Gomez at the [facility]. Uses [facility] pharmacy. Has been enrolled in Cardiac Rehab since his October STEMI and actually had an appointment today which has been reschedule d. His sister will transport home at discharge. No discharge needs expressed or anticipated. Electronically signed by: Sona May RN 12/23/2016 10:13 documented in this e ncounter Plan of Treatment Not on filedocumented as of this encounter Procedures + +--------+ + + + | Procedure Name | Priori | Date/Time | Associated Diagnosis | Comments | | | ty | | | | + +--------+ + + + | CK TOTAL | Routin | 12/24/2016 | | Results for this | | | e | 3:26 AM | | procedure are in the | | | | PDT | | results section. | + +--------+ + + + | ECG 12 LEAD | Routin | 12/23/2016 | | Results for this | | | e | 11:08 AM | | procedure are in the | | | | PDT | | results section. | + +--------+ + + + | CULTURE, MRSA | Routin | 12/23/2016 | | Results for this | | | e | 10:44 AM | | procedure are in the | | | | PDT | | results section. | + +--------+ + + + | CV LHC | Routin | 12/23/2016 | | Results for this | | | e | 8:33 AM | | procedure are in the | | | | PDT | | results section. | + +--------+ + + + | LABS - EXTERNAL SCAN | | 12/22/2016 | | Results for this | | | | 12:00 AM | | procedure are in the | | | | PDT | | results section. | + +--------+ + + + documented in this encounter Results CK Total (12/24/2016 3:26 AM PDT) + +-------+ + + + | Component | Value | Ref Range | Performed | Pathologist | | | | | At | Signature | + +-------+ + + + | CK TOTAL | 67 | 22 - 269 U/L | [facility] [...] [address] | [place] | [phone] | | [facility] | | [address] | | | - LABORATORY | | | | + + + + + ECG 12 lead (12/23/2016 11:08 AM PDT) + + + + + + | Component | Value | Ref Range | Performed | Pathologist | | | | | At | Signature | + + + + + + | VENTRICULAR | 71 | BPM | [facility] | | | RATE EKG | | | | | + + + + + + | ATRIAL RATE | 71 | BPM | [facility] | | + + + + + + | P-R | 138 | ms | [facility] | | | INTERVAL | | | | | + + + + + + | QRS | 90 | ms | [facility] | | | DURATION | | | | | + + + + + + | Q-T | 408 | ms | [facility] | | | INTERVAL | | | | | + + + + + + | Q-T | 443 | ms | [facility] | | | INTERVAL | | | | | | (CORRECTED) | | | | | + + + + + + | P WAVE AXIS | 57 | degrees | [facility] | | + + + + + + | QRS AXIS | -5 | degrees | [facility] | | + + + + + + | T AXIS | -28 | degrees | [facility] | | + + + + + + | INTERPRETAT | Normal sinus | | [facility] | | | ION TEXT | rhythmIncreased R/S | | | | | | ratio in V1, consider | | | | | | early transition or | | | | | | posterior infarctT wave | | | | | | abnormality, consider | | | | | | inferior | | | | | | ischemiaAbnormal ECGWhen | | | | | | compared with ECG of | | | | | | 05-NOV-2016 06:33,fusion | | | | | | complexes are no longer | | | | | | present Confirmed by | | | | | | LATONIA GALLARDO MD | | | | | | ([id number]) on 12/23/2016 | | | | | | 1:17:54 PM | | | | + + [...] | | | + +---------+ + + Culture, MRSA (12/23/2016 10:44 AM PDT) + + + + + + | Component | Value | Ref Range | Performed | Pathologist | | | | | At | Signature | + + + + + + | Culture | Negative for MRSA by | | [facility] | | | | chromogenic agar method | | [facility] | | | [...] [address] | [place] | [phone] | | [facility] | | [address] | | | - LABORATORY | | | | + + + + + CV CARDIAC PROCEDURE (12/23/2016 8:33 AM PDT) + + | Specimen | + + | | + + + + + | Narrative | Performed At | + + + | Latonia Jewell | | | MD Whitney 12/23/2016 13:13 | | | [facility] | | | LEFT CARDIAC CATHETERIZATION | | | AND | | | CORONARY INTERVENTION REPORT PATIENT NAME: Jose Raul | | | Bill MaldonadoREJI OF : 1960MEDICAL RECORD NUMBER: | | | [id number] OF PROCEDURE: 12/23/2016 | | | | | | PRIMARY CARE PROVIDER: JOS Win | | | COVER SEAMER: Latonia Gallardo MD, [facility], [place] PRE-PROCEDURE DIAGNOSIS: | | | Unstable AnginaPOST-PROCEDURE DIAGNOSIS: PDA lesion stented with | | | RENETTA PROCEDURES PERFORMED: 1. Left Heart Catheterization | | | for pressures2. Coronary Angiography3. Left Ventriculography 4. | | | Percutaneous coronary intervention PDA CAD Presentation: Unstable | | | Angina Anginal Classification (within 2 weeks): "Class IV" | | | Anti-Anginal med (within 2 weeks): yesHeart Failure (within 2 | | | weeks): noCardiomyopathy or LV Systolic Dysfunction: noCardiogenic | | | shock w/in 24 hours: noPre-operative Evaluation Before Non-Cardiac | | | Surgery: noCardiac Arrest w/in 24 hours: noEvaluation of valvular | | | heart disease: noStress or Imaging Studies Performed: yes | | | Echocardiogram no | | | Patient Risk factors: Age 55 | | | y.o.advanced age (older than 55 for men, 65 for women), dyslipidemia, | | | hypertension, male gender and smoking/ tobacco exposure; Diabetes | | | Mellitus on Insulin: noPrior PCI: yesCrCl cannot be calculated | | | (Patient's most recent sCr result is older than the maximum 3 days | | | allowed.). kidney dx: noChronic Lung disease: yesBMI: Body mass | | | index is 29.53 kg/m .History of PAD: noPrior history of CVA: no | | | 2. Indication For Coronary RevascularizationPlease indicate one of | | | the following if PCI is performed: Unstable Angina Appropriate Use | | | Calculator - PCITIMI Score is 3 or moreIntermediate or high risk | | | features for short term risk of or nonfatal MIRevascularization | | | of the presumed culprit arteryRevascularization of multiple coronary | | | arteries when the culprit artery cannot clearly be | | | determinedAppropriate careIndication 10Score 8 By AUC criteria, PCI | | | is Appropriate DESCRIPTION OF PROCEDURE:Informed consent was | | | obtained from the patient, and a time-out was performed to verify the | | | patient's identification and planned procedure. Please refer to the | | | computer log entry form for precise details. The patient's right | | | radial artery was then prepped and draped in the usual sterile | | | fashion, and anesthetized with 1% lidocaine. Arterial access was | | | obtained using a micropuncture kit. A 5-Libyan JR4 and JL 3.5 were | | | used to perform angiography. There was a lesion at the origin of the | | | PDA. The previous stents were wide open. A 6 latvian AR 1 guide | | | catheter was cannulated into the right coronary artery. A Forte extra | | | support wire was manipulated through the lesion and positioned into | | | the distal vessel. The lesion was pre dilated with 2.5 X 12 balloon. | | | Next, a 3.0 X 12 Promus RENETTA stent was deployed at the lesion and | | | expanded at 14 royer. Final angiography demonstrated an excellent | | | result with good distal runoff.A 5 latvian pigtail was advanced and | | | used to measure pressures and perform an LV gram. A pullback was | | | performed. All catheters were removed. The patient, despite extra | | | doses of Nicardipine and NTG in the radial, did have pain. If this | | | had been a long case we would have had to switch to the femoral. A TR | | | band occluder device was utilized to achieve hemostasis of the radial | | | artery. There were no complications. Anticoagulation:Bivalirudin | | | Estimated blood loss was: 5 cc. Fluro Time: 8.3 min Total | | | Reference Air Kerma: 1195.5 mGy Contrast: 131 mls of Omnipaque 350 | | | Moderate sedation start time: 0712. Moderate sedation stop time: | | | 0806. ILatonia MD, reviewed the patient's pre-sedation | | | assessment and vital signs, supervised and directed the Moderate | | | Sedation from administration to patient stabilization for recovery. | | | FINDINGS:Hemodynamics:Left ventricular end-diastolic pressure (LVEDP) | | | was 26 mm Hg. There was no significant gradient across the aortic | | | valve. Left Ventriculography: EF 60% Mild hypokinesis of the distal | | | inferior wall. No MR.Left main coronary artery: Normal Left | | | anterior descending coronary artery: 20% proximal and mid. Large | | | arteryCircumflex coronary artery: Small artery no significant | | | disease.Right coronary artery: No restenosis in the stented segment. | | | Origen of the PDA 80%. Mid PDA 20-30%. Following stent | | | implantation no residual stenosis. RUPA 3 flow. Post Intervention: | | | No residual stenosisCONCLUSIONS:1- 80% PDA stented with a Promus | | | DES2- no restenosis of the previous RCA stents3- normal Left Main4- | | | LAD with multiple 20% lesions5- LCX - small nondominant with non | | | obstructive disease CLINICAL IMPRESSIONS AND RECOMMENDATIONS:The | | | patient should remain on dual antiplatelet therapy for the rest of the | | | planned year. Electronically authenticated and signed Latonia Jewell | | | MD Whitney 12/23/2016 10:04Portions of this chart were created with | | | [employer] voice recognition software. Occasional wrong-word or | | | | | | sound-alike | | | substitutions may have occurred due to the inherent limitations of | | | voice recognition software. Please read the chart carefully and | | | recognize, using context, where these substitutions have occurred | | | | | |precise details. The patient's right radial artery was then | | |prepped and draped in the usual sterile fashion, and anesthetized | | |with 1% lidocaine. Arterial access was obtained using a | | |micropuncture kit. A 5-Libyan JR4 and JL 3.5 were used to perform | | |angiography. There was a lesion at the origin of the PDA. The | | |previous stents were wide open. A 6 latvian AR 1 guide catheter | | |was cannulated into the right coronary artery. A Forte extra | | |support wire was manipulated through the lesion and positioned | | |into the distal vessel. The lesion was pre dilated with 2.5 X 12 | | |balloon. Next, a 3.0 X 12 Promus RENETTA stent was deployed at the | | |lesion and expanded at 14 royer. Final angiography demonstrated an | | |excellent result with good distal runoff. | | |A 5 latvian pigtail was advanced and used to measure pressures and | | |perform an LV gram. A pullback was performed. | | |All catheters were removed. | | | | | |The patient, despite extra doses of Nicardipine and NTG in the | | |radial, did have pain. If this had been a long case we would | | |have had to switch to the femoral. | | | | | |A TR band occluder device was utilized to achieve hemostasis of | | |the radial artery. There were no complications. | | | | | |Anticoagulation:Bivalirudin | | | Estimated blood loss was: 5 cc. | | | Fluro Time: 8.3 min | | | Total Reference Air Kerma: 1195.5 mGy | | | Contrast: 131 mls of Omnipaque 350 | | | | | |Moderate sedation start time: 0712. Moderate sedation stop time: | | |0806. ILatonia MD, reviewed the patient's | | |pre-sedation assessment and vital signs, supervised and directed | | |the Moderate Sedation from administration to patient | | |stabilization for recovery. | | | | | | | | |FINDINGS: | | |Hemodynamics: | | |Left ventricular end-diastolic pressure (LVEDP) was 26 mm Hg. | | |There was no significant gradient across the aortic valve. | | | | | |Left Ventriculography: EF 60% Mild hypokinesis of the distal | | |inferior wall. No MR. | | |Left main coronary artery: Normal | | |Left anterior descending coronary artery: 20% proximal and mid. | | |Large artery | | |Circumflex coronary artery: Small artery no significant disease. | | |Right coronary artery: No restenosis in the stented segment. | | |Origen of the PDA 80%. Mid PDA 20-30%. Following stent | | |implantation no residual stenosis. RUPA 3 flow. | | | | | | | | | | | |Post Intervention: | | | | | |No residual stenosis | | |CONCLUSIONS: | | |1- 80% PDA stented with a Promus RENETTA | | |2- no restenosis of the previous RCA stents | | |3- normal Left Main | | |4- LAD with multiple 20% lesions | | |5- LCX - small nondominant with non obstructive disease | | | | | |CLINICAL IMPRESSIONS AND RECOMMENDATIONS: | | |The patient should remain on dual antiplatelet therapy for the | | |rest of the planned year. | | | | | | | | |Electronically authenticated and signed Latonia Gallardo MD | | |12/23/2016 10:04 | | |Portions of this chart were created with [employer] voice recognition | | |software. Occasional wrong-word or sound-alike substitutions | | |may have occurred due to the inherent limitations of voice | | |recognition software. Please read the chart carefully and | | |recognize, using context, where these substitutions have occurred | | | | | | | | | | | | | | | | | | | | | | | + + + LABS - EXTERNAL SCAN (12/22/2016 12:00 AM PDT) + + + | Narrative | Performed At | + + + | Ordered by an | | | unspecified provider. | | + + + documented in this encounter Visit Diagnoses Not on filedocumented in this encounter Administered Medications + +--------+---------+------+------+------+ | Medication Order | MAR | Action | Dose | Rate | Site | | | Action | Date | | | | + +--------+---------+------+------+------+ + +---+ | acetaminophen (TYLENOL) tablet | | | 650 mg 650 mg, Oral, EVERY 6 | | | HOURS PRN, Pain, Fever, Starting | | | Joceline 12/23/16 at 0850, Post-op/Phase | | | II | | + +---+ | | | + +---+ | aluminum & magnesium | | | hydroxide-simethicone (MAALOX | | | PLUS REGULAR STRENGTH) 200-200-20 | | | mg/5 mL suspension 30 mL 30 mL, | | | Oral, EVERY 4 HOURS PRN, | | | Indigestion, Starting Joceline 12/23/16 | | | at 1042, Shake well., | | | Post-op/Phase II | | + +---+ | | | + +---+ + +-------+ +-------+---+---+ | aspirin chewable tablet 81 mg | Given | 12/25/19 | 81 mg | | | | 81 mg, Oral, DAILY, First dose on | | 17 8:05 | | | | | Tue12/24/16 at 0900, | | AM PDT | | | | | Post-op/Phase II | | | | | | + +-------+ +-------+---+---+ +---+---+ | | | +---+---+ + +-------+ +-------+---+---+ | atorvaSTATin (LIPITOR) tablet | Given | 12/24/19 | 80 mg | | | | 80 mg 80 mg, Oral, NIGHTLY, | | 17 8:13 | | | | | First dose on Tue12/23/16 at 2100 | | PM PDT | | | | + +-------+ +-------+---+---+ +---+---+ | | | +---+---+ + +---------+ + +-------+---+ | bivalirudin (ANGIOMAX) 250 mg | New Bag | 12/24/19 | 1.75 | 36.5 | | | in 50 ml NS infusion CONTINUOUS | | 17 7:36 | mg/kg/hr | mL/hr | | | PRN, Starting Joceline 12/23/16 at 0736, | | AM PDT | | | | | Intra-op | | | | | | + +---------+ + +-------+---+ +---+---+ | | | +---+---+ + +-------+ +---------+---+---+ | bivalirudin (ANGIOMAX) 5 mg/ml | Given | 12/24/19 | 78.225 | | | | in NS bolus bolus ONCE PRN, | | 17 7:34 | mg | | | | Starting Joceline 12/23/16 at 0734, | | AM PDT | | | | | Intra-op | | | | | | + +-------+ +---------+---+---+ +---+---+ | | | +---+---+ + +-------+ +--------+---+---+ | budesonide (PULMICORT) 0.5 mg/2 | Given | 12/25/19 | 0.5 mg | | | | mL nebulizer solution 0.5 mg | | 17 7:19 | | | | | 0.5 mg, Nebulization, RT BID, | | AM PDT | | | | | First dose on Tue12/23/16 at 2100, | | | | | | | RT will administer. Shake well. | | | | | | | Protect from light. Rinse mouth | | | | | | | after use., | | | | | | + +-------+ +--------+---+---+ +-------+ +--------+---+---+ | Given | 12/24/19 | 0.5 mg | | | | | 17 8:19 | | | | | | PM PDT | | | | +-------+ +--------+---+---+ +---+---+ | | | +---+---+ + +-------+ +-------+---+---+ | busPIRone (BUSPAR) tablet 15 mg | Given | 12/25/19 | 15 mg | | | | 15 mg, Oral, 2 TIMES DAILY, | | 17 7:10 | | | | | First dose on [facility] 12/23/16 at 2100 | | AM PDT | | | | + +-------+ +-------+---+---+ +-------+ +-------+---+---+ | Given | 12/24/19 | 15 mg | | | | | 17 8:12 | | | | | | PM PDT | | | | +-------+ +-------+---+---+ +---+---+ | | | +---+---+ + +-------+ +-------+---+---+ | famotidine (PEPCID) tablet 20 | Given | 12/25/19 | 20 mg | | | | mg 20 mg, Oral, 2 TIMES DAILY, | | 17 8:05 | | | | | First dose on [facility] 12/23/16 at 0915 | | AM PDT | | | | + +-------+ +-------+---+---+ +-------+ +-------+---+---+ | Given | 12/24/19 | 20 mg | | | | | 17 8:13 | | | | | | PM PDT | | | | +-------+ +-------+---+---+ +---+---+ | | | +---+---+ + +-------+ +--------+---+---+ | fentaNYL (PF) injection ONCE | Given | 12/24/19 | 50 mcg | | | | PRN, Starting [facility] 12/23/16 at 0718, | | 17 8:05 | | | | | Intra-op | | AM PDT | | | | + +-------+ +--------+---+---+ +-------+ +--------+---+---+ | Given | 12/24/19 | 25 mcg | | | | | 17 8:00 | | | | | | AM PDT | | | | +-------+ +--------+---+---+ | Given | 12/24/19 | 25 mcg | | | | | 17 7:49 | | | | | | AM PDT | | | | +-------+ +--------+---+---+ +---+---+ | | | +---+---+ + +-------+ +--------+---+---+ | gabapentin (NEURONTIN) capsule | Given | 12/25/19 | 900 mg | | | | 900 mg 900 mg, Oral, 3 TIMES | | 17 8:04 | | | | | DAILY, First dose on [facility] 12/23/16 | | AM PDT | | | | | at 1400 | | | | | | + +-------+ +--------+---+---+ +-------+ +--------+---+---+ | Given | 12/24/19 | 900 mg | | | | | 17 8:13 | | | | | | PM PDT | | | | +-------+ +--------+---+---+ | Given | 12/24/19 | 900 mg | | | | | 17 3:07 | | | | | | PM PDT | | | | +-------+ +--------+---+---+ +---+---+ | | | +---+---+ + +-------+ +---------+---+---+ | iohexol (OMNIPAQUE 350) 350 | Given | 12/24/19 | 131 mLs | | | | mg/mL injection ONCE PRN, | | 17 8:12 | | | | | Starting [facility] 12/23/16 at 0812, | | AM PDT | | | | | Intra-op | | | | | | + +-------+ +---------+---+---+ +---+---+ | | | +---+---+ + +-------+ +---------+---+---+ | ipratropium (ATROVENT) 500 | Given | 12/25/19 | 500 mcg | | | | mcg/2.5 mL nebulizer solution 500 | | 17 7:19 | | | | | mcg 500 mcg, Nebulization, RT | | AM PDT | | | | | 4X DAILY, First dose on [facility] | | | | | | | 12/23/16 at 1200, RT will | | | | | | | administer. Therapeutic | | | | | | | Interchange for atrovent | | | | | | | inhaler., | | | | | | + +-------+ +---------+---+---+ +-------+ +---------+---+---+ | Given | 12/24/19 | 500 mcg | | | | | 17 8:19 | | | | | | PM PDT | | | | +-------+ +---------+---+---+ | Given | 12/24/19 | 500 mcg | | | | | 17 3:42 | | | | | | PM PDT | | | | +-------+ +---------+---+---+ +---+---+ | | | +---+---+ + +-------+ +---------+---+---+ | levalbuterol (XOPENEX) 1.25 | Given | 12/25/19 | 1.25 mg | | | | mg/3 mL nebulizer solution 1.25 | | 17 7:00 | | | | | mg 1.25 mg, Nebulization, RT | | AM PDT | | | | | Q6H, First dose on [facility] 12/23/16 at | | | | | | | 1500, RT will administer. Protect | | | | | | | from light., | | | | | | + +-------+ +---------+---+---+ +-------+ +---------+---+---+ | Given | 12/25/19 | 1.25 mg | | | | | 17 2:49 | | | | | | AM PDT | | | | +-------+ +---------+---+---+ | Given | 12/24/19 | 1.25 mg | | | | | 17 8:19 | | | | | | PM PDT | | | | +-------+ +---------+---+---+ +---+---+ | | | +---+---+ + +-------+ +-------+---+ + | lidocaine buffered 1% injection | Given | 12/24/19 | 2 mLs | | Surgical | | ONCE PRN, Starting [facility] 12/23/16 | | 17 7:23 | | | Site | | at 0723, Intra-op | | AM PDT | | | | + +-------+ +-------+---+ + +---+---+ | | | +---+---+ + +-------+ +--------+---+---+ | midazolam (VERSED) 1 mg/mL | Given | 12/24/19 | 0.5 mg | | | | injection ONCE PRN, Starting [facility] | | 17 8:00 | | | | | 12/23/16 at 0718, Intra-op | | AM PDT | | | | + +-------+ +--------+---+---+ +-------+ +--------+---+---+ | Given | 12/24/19 | 0.5 mg | | | | | 17 7:49 | | | | | | AM PDT | | | | +-------+ +--------+---+---+ | Given | 12/24/19 | 1 mg | | | | | 17 7:39 | | | | | | AM PDT | | | | +-------+ +--------+---+---+ +---+---+ | | | +---+---+ + +-------+ +---+---+---+ | niCARdipine (CARDENE) 200 mcg, | Given | 12/24/19 | | | | | nitroglycerin in dextrose 100 mcg | | 17 7:25 | | | | | in heparin 3,000 Units CVL | | AM PDT | | | | | mixture ONCE PRN, Starting [facility] | | | | | | | 12/23/16 at 0725, Intra-op | | | | | | + +-------+ +---+---+---+ +---+---+ | | | +---+---+ + +-------+ +---------+---+---+ | niCARdipine in dextrose | Given | 12/24/19 | 400 mcg | | | | (CARDENE) 0.2 mg/ml syringe ONCE | | 17 8:00 | | | | | PRN, Starting [facility]oc[facility] 12/23/16 at | | AM PDT | | | | | 0737, Intra-op | | | | | | + +-------+ +---------+---+---+ +-------+ +---------+---+---+ | Given | 12/24/19 | 200 mcg | | | | | 17 7:37 | | | | | | AM PDT | | | | +-------+ +---------+---+---+ + +---+ | | | + +---+ | nitroglycerin (NITROSTAT) SL | | | tablet 0.4 mg 0.4 mg, | | | Sublingual, EVERY 5 MIN PRN, | | | Chest pain, Starting Joceline 12/23/16 | | | at 0850, May give up to 3 doses. | | | Notify physician after 2nd dose | | | given. Hold for SBP<100, | | | Post-op/Phase II | | + +---+ | | | + +---+ + +-------+ +---------+---+---+ | nitroglycerin 100 mcg/mL | Given | 12/24/19 | 100 mcg | | | | syringe ONCE PRN, Starting [facility] | | 17 8:00 | | | | | 12/23/16 at 0742, Intra-op | | AM PDT | | | | + +-------+ +---------+---+---+ +-------+ +---------+---+---+ | Given | 12/24/19 | 100 mcg | | | | | 17 7:52 | | | | | | AM PDT | | | | +-------+ +---------+---+---+ | Given | 12/24/19 | 100 mcg | | | | | 17 7:42 | | | | | | AM PDT | | | | +-------+ +---------+---+---+ + +---+ | | | + +---+ | ondansetron (ZOFRAN) injection | | | 4-8 mg 4-8 mg, Intravenous, | | | EVERY 6 HOURS PRN, Nausea, | | | Vomiting, Starting [facility]oc[facility] 12/23/16 at | | | 0850, Post-op/Phase II | | + +---+ | | | + +---+ + +-------+ +-------+---+---+ | oxyCODONE (ROXICODONE) tablet | Given | 12/25/19 | 10 mg | | | | 5-10 mg 5-10 mg, Oral, EVERY 4 | | 17 8:04 | | | | | HOURS PRN, Pain, Starting Joceline | | AM PDT | | | | | 12/23/16 at 1042, Post-op/Phase II | | | | | | + +-------+ +-------+---+---+ +-------+ +-------+---+---+ | Given | 12/25/19 | 10 mg | | | | | 17 12:21 | | | | | | AM PDT | | | | +-------+ +-------+---+---+ | Given | 12/24/19 | 10 mg | | | | | 17 3:07 | | | | | | PM PDT | | | | +-------+ +-------+---+---+ +---+---+ | | | +---+---+ + +-------+ +-------+---+---+ | prasugrel (EFFIENT) tablet 10 | Given | 12/25/19 | 10 mg | | | | mg 10 mg, Oral, DAILY, First | | 17 9:03 | | | | | dose on Tue12/24/16 at 0900 | | AM PDT | | | | + +-------+ +-------+---+---+ +---+---+ | | | +---+---+ + +-------+ +-------+---+---+ | ticagrelor (BRILINTA) tablet | Given | 12/24/19 | 90 mg | | | | ONCE PRN, Starting Tue12/23/16 at | | 17 8:31 | | | | | 0831, Intra-op | | AM PDT | | | | + +-------+ +-------+---+---+ +---+---+ | | | +---+---+ documented in this encounter
--- OUTSIDE RECORDS SUMMARY | ~2020-03-18 | XMS | Encounter Summary ---
Demographics + + + | Address | [address] | | | [place] [address] | + + + | Home Phone [...] Team Providers + +------+ + | Care Design Center Consultant Name | Role | Phone | [...] | +--------+ + + + + | 06/23/ | Hospital | [facility] | Aleksander Stern, | Neck pain | | 2017 | Encounter | MED CTR XRAY [address] | DO [address] | | | | | [place] | [address] | | | | | [place] [address] | [address] | | | | | [phone] | | | +--------+ + + + [...] tablet under | 25 | 1 | /14/20 | | | (NITROSTAT) 0.4 mg | [...] +---------+ + + | ticagrelor | Take 90 mg by mouth | | 0 | | | | (BRILINTA) 90 mg | 2 times daily. | | | | 7 | | tablet | | [...] XR CERVICAL SPINE 4 | Routin | 06/23/2017 | Neck pain | Results for this | | OR 5 VWS | e | 1:37 PM | | procedure are in the | | | | PST | | results section. | + +--------+ + + + documented in this encounter Results XR Cervical Spine 4 or 5 Vws (06/23/2017 1:37 PM PST) + + | Specimen | + + | | + + + + + | Narrative | Performed At | + + + | XR CERVICAL SPINE 4 OR 5 VWS 06/23/2017 1:37 PM HISTORY: Neck | [facility] | | pain. COMPARISON: 06/02/2016 FINDINGS: Visualized skull base | | | and facial structures demonstrate no acute findings. Prevertebral | | | soft tissues are normal. Intact anterior fusion from C3 through C7 | | | and hardware for posterior fusion from C3 through T2 without pedicle | | | screws at C7. Vertebral body heights are preserved. Apparent mature | | | osseous fusion at these levels. C2-C3 intervertebral disc space is | | | normal. Cervical alignment is normal. Mild left carotid bulb | | | calcifications. IMPRESSION - No evidence for an interval | | | complication. Dictated and Signed by: Ryan Hameed MD | | | Electronically signed: 06/23/2017 2:21 PM | | + + + + + | Procedure Note | + + | [facility], Rad Results In - 06/23/2017 2:24 PM PST XR CERVICAL SPINE 4 OR 5 VWS 06/23/2017 | | 1:37 PMHISTORY: Neck pain.COMPARISON: 06/02/2016FINDINGS:Visualized skull base and | | facial structures demonstrate no acute findings.Prevertebral soft tissues are | | normal.Intact anterior fusion from C3 through C7 and hardware for posterior fusion | | fromC3 through T2 without pedicle screws at C7. Vertebral body heights arepreserved. | | Apparent mature osseous fusion at these levels. C2-C3 intervertebraldisc space is | | normal. Cervical alignment is normal. Mild left carotid bulbcalcifications.IMPRESSION | | -No evidence for an interval complication.Dictated and Signed by: Ryan Hameed MD | | Electronically signed: 06/23/2017 2:21 PM | | | |Intact anterior fusion from C3 through C7 and hardware for posterior fusion from | |C3 through T2 without pedicle screws at C7. Vertebral body heights are | |preserved. Apparent mature osseous fusion at these levels. C2-C3 intervertebral | |disc space is normal. Cervical alignment is normal. Mild left carotid bulb | |calcifications. | | | |IMPRESSION - | |No evidence for an interval complication. | | | |Dictated and Signed by: Ryan Hameed MD | | Electronically signed: 06/23/2017 2:21 PM | + + + +---------+ + [...]
--- OUTSIDE RECORDS SUMMARY | ~2020-03-18 | XMS | Encounter Summary ---
Demographics + + + | Address | [address] | | | [place] [address] | + + + | Home Phone | | + + + | Preferred Language | Unknown | + + + | Marital Status | | + + + | Adventism Affiliation | Unknown | + + + | Race | White | + + + | Ethnic Group | Not or | + + + Author + + + | Author | [facility] | | | and [place] | + + + | Organization | [facility] | | [...] Team Providers + +------+ + | Care Tape Fastener Machine Operator Name | Role | Phone [...] | Cardiology | Diagnoses | Patricia, | Whitney, | | | | | | Gary | Latonia Jewell MD | | | | | Atherosclero | MD Garry | [address] | | | | | tic heart | [address] [place] | | | | | disease of | [place]JAYA | [place], [place] | | | | | [place] | [address] [place] | [address] Phone: | | | | | coronary | [place] | [phone] | | | | | artery with | [address] | Fax: | | | | | unspecified | Phone: | [phone] | | | | | angina | [phone] | | | | | | pectoris | Fax: | | | | | | (HCC) | [phone] | | | | | | Procedures | | | | | | | [place] OFFICE | | | | | | | OUTPATIENT | | | | | | | NEW 60 | | | | | | | MINUTES [place] | | | | | | | OFFICE | | | | | | | OUTPATIENT | | | | | | | VISIT 40 | | | | | | | MINUTES [place] | | | | | | | OFFICE | | | | | | | OUTPATIENT | | | | | | | VISIT 10 | | | | | | | MINUTES STATE AUDITOR | | | | | | | IN CLINIC - | | | | | | | HOSP FUP | | | +--------+--------+ + + + + Encounter Details +--------+---------+ + + + | Date | Type | Department | Care Team | Description | +--------+---------+ + + + | 01/11/ | Office | [facility] | Latonia Olson, | Atherosclerosis of | | 2017 | Visit | CARDIOLOGY [address] | [address] | [place] coronary | | | | [place], | [place], [place] | artery of [place] | | | | [place] [address] | [address] | heart without angina | | | | [phone] | | pectoris (Primary | | | | | | Dx); S/P angioplasty | | | | | | with stent; | | | | | | Hyperlipidemia, | | | | | | unspecified | | | | | | hyperlipidemia type | +--------+---------+ + + + Social History [...] + + + | Blood Pressure | 110/70 | 01/11/2017 10:43 AM | | | | | PDT | | + + + + + | Pulse | 84 | 01/11/2017 10:43 AM | | | | | PDT | | + + + + + | Temperature | - | - | | + + + + + | Respiratory Rate | 18 | 01/11/2017 10:43 AM | | | | | PDT | | + + + + + | Oxygen Saturation | - | - | | + + + + + | Inhaled Oxygen | - | - | | | Concentration | | | | + + + + + | Weight | 103 kg (227 lb) | 01/11/2017 10:43 AM | | | | | PDT | | + + + + + | Height | 188 cm (6' 2") | 01/11/2017 10:43 AM | | | | | PDT | | + + + + + | Body Mass Index | 29.15 | 01/11/2017 10:43 AM | | | | | PDT [...] documented as of this encounter Progress Notes Latonia Olson MD - 01/11/2017 11:00 AM PDTFormatting of this note might be different fr om the original. PATIENT NAME: Jose Raul Palafox : 1960: AGE: 56 y.o. PRIMARY CARE: Tommy Gomez MD OUTPATIENT FOLLOW UP VISIT Date of Service: 01/11/2017 HISTORY OF PRESENT ILLNESS: Jose Raul Palafox is a 56 y.o. male with a history of ASHD STEMI in October and [place] in December. He is being seen today for follow up. He is feeling well. He takes his blood pressure and then holds his metoprolol. Some of th e blood pressures he has held for are 110/56, 129/72. He feels well. There was some mix up with the Effient. [facility] because they did not have my prescription? He has continued to take Brilinta MEDICAL, SURGICAL, AND PERSONAL HISTORY Past Medical, [...] elevation myocardial infarction involving right coronary artery CURRENT MEDICATIONS Current Outpatient Prescriptions Medication Sig Dispense Refill aspirin 81 MG EC tablet Take 1 tablet by mouth Daily. 30 tablet atorvaSTATin (LIPITOR) 80 MG tablet Take 1 tablet by mouth nightly. Do not take for a w [place] 30 tablet 11 busPIRone (BUSPAR) 15 mg [...] Daily. gabapentin (NEURONTIN) 300 mg capsule Take 300 mg by mouth 3 times daily. Three tablets three times a day HYDROcodone-acetaminophen (NORCO) 10-325 mg per tablet Take [...] 0.5 tablets by mouth 2 times daily. nitroglycerin (NITROSTAT) 0.[address] 1 tablet under the tongue every 5 jennifer frieda as needed for Chest pain. 25 tablet 1 omeprazole (PRILOSEC) 20 mg capsule Take 20 mg by mouth 2 times daily. oxygen Inhale 2 L into the lungs continuous. rOPINIRole (REQUIP) 0.5 MG tablet Take 0.5 mg by mouth nightly as needed (restless leg) . ticagrelor (BRILINTA) 90 mg tablet Take 90 mg by mouth 2 times daily. No current facility-administered medications for this visit. ALLERGIES Allergies Allergen Reactions Doxycycline Anaphylaxis Throat swelling Adhesive & Tape Rash Albuterol Anxiety Caused severe anxiety. Aspirin Other (See Comments) Ulceration of stomach Latex Itching and Rash ROS OBJECTIVE: PHYSICAL EXAM BP 110/70 | Pulse 84 | Resp 18 | Ht 1.88 m (6' 2") | Wt 103 kg (227 lb) | BMI 29.15 kg /m Sat 96 % on room air Constitutional: No acute distress, non-toxic appearance Eyes: conjunctiva normal. PER HEENT: Supple, normal ROM and without adenopathy. Respiratory: No respiratory distress, diffuse wheezes Cardiovascular: Normal rate, normal rhythm, no murmurs, no gallops, no rubs. GI: Soft, non distended, normal bowel sounds, Musculoskeletal: No edema, no tenderness, no deformities. Integument: Well hydrated, no rashes or concerning skin lesions Neurologic: Alert & oriented x 3, no focal deficits noted Psychiatric: Speech and behavior appropriate LAB RESULTS reviewed during visit today primarily from [facility]: LIPID Lab Results Component Value Date CHOL [...] HCT 47 11/03/2016 PLT 315 11/03/2016 ASSESSMENT: Not on Effient - [facility] as they said they did not have my prescriptio n? Emphysema and wheezing H/O STEMI in October and [place] in December 2016 RENETTA to RCA and PDA - he should be done with dual pl atelet in October 2017 dyslipidemia PLAN: Encouraged him not to hold beta fabian based on those blood pressures If [facility] appro[facility] switch to: Effient - we faxed the prescription again Follow up with my replacement as well as Dr Gomez at the [place] Be sure to have cholesterol rechecked Electronically signed by: Latonia Olson MD [facility] 01/11/2017 Portions of this chart may have been created with [employer] voice recognition software. Occasi onal wrong-word or sound-alike substitutions may have occurred due to the inherent cobos itations of voice recognition software. Please read the chart carefully and recognize, using context, where these substitutions have occurred. documented in this encounter Plan of Treatment Not on filedocumented as of this encounter Visit Diagnoses + + | Diagnosis | + + | Atherosclerosis of [place] coronary artery of [place] heart without angina pectoris - | | Primary | + + | S/P angioplasty with stent Postsurgical percutaneous transluminal coronary | | angioplasty status | + + | Hyperlipidemia, unspecified hyperlipidemia type | + + documented in this encounter
--- OUTSIDE RECORDS SUMMARY | ~2020-03-18 | XMS | Encounter Summary ---
Demographics + + + | Address | [address] | | | [place] [address] | + + + | Home Phone | | + + + | Preferred Language | Unknown | + + + | Marital Status | | + + + | Sabianism Affiliation | Unknown | + + + | Race | White | + + + | Ethnic Group | Not or | + + + Author + + + | Author | [facility] | | | and [place] | + + + | Organization | [facility] | | | [...] Team Providers + +------+ + | Care Ibm Bpm Developer Name | Role | Phone | + [...] Description | +--------+---------+ + + + | 03/07/ | Office | [facility] | Latonia Olson, | ST elevation | | 2017 | Visit | MED CTR CARDIAC | MD [address] | myocardial | | | | REHABILITATION [address] | [place] | infarction involving | | | | [place] | [address] | right coronary | | | | [place] [address] | | artery (HCC) | | | | [phone] | | | +--------+---------+ + + + [...] encounter Progress Notes Pricilla Zaldivar RN - 03/07/2017 10:00 AM PDT [facility] CARDIAC REHABILITATION [address] [facility] [address] Cardiac Rehab Date: 03/07/2017 Patient Information Patient Name: Jose Raul Palafox [...] min Electronically signed by: Pricilla Zaldivar RN, 03/07/2017 14:53 Patient Name: Jose Raul Palafox/: 1960/ signed by Pricilla Zaldivar RN at 03/07/2017 3:05 PM PDTdocumented in this encounter Plan of [...]
--- OUTSIDE RECORDS SUMMARY | ~2020-03-18 | XMS | Encounter Summary ---
Demographics + + + | Address | [address] | | | [place] [address] | + + + | Home Phone [...] Team Providers + +------+ + | Care Chuck Splitter Name | Role | Phone | + +------+ + | Gary Gomez MD | PCP | | + +------+ + Reason for Visit + + + | Reason | Comments | + + + | Discharge Without | | | Visit | | + + + Encounter Details +--------+ + + + + | Date | Type | Department | Care Team | Description | +--------+ + + + + | 05/31/ | Documentati | [facility] | Khris Gallardo, | Discharge Without | | 2019 | on | [facility] | Ja M, PT [address] | Visit | | | | THERAPY [address] [place] | | | | | Ave [place], [place] | [place] [address] | | | | | [address] | [phone] | | | | | [phone] | | | +--------+ + + + [...] encounter Progress Notes Ja Graham, PT - 05/31/2019 9:47 AM PSTFormatting of this note might be diffe rent from the original. [facility] THERAPY [address] [place] [address] Physical Therapy Discharge Note This discharge is associated with the evaluation completed on 09/14/2018. Date: 05/31/2019 Patient Information Patient Name: Jose Raul Palafox Date of : 1960 Age: 58 y.o. Encounter Diagnoses Code Name Primary? M47.26 Other spondylosis with radiculopathy, lumbar region Date of Onset: 07/25/1988 Referring Provider: Gary Gomez MD Last date and total No data recorded. Patient has not returned to therapy for further treatment. Goal status is unknown at this t rosetta. This note serves as discharge from therapy. Further therapy appointments were held while patient underwent further evaluation for his s ymptoms. He ultimately underwent lumbar spine surgery to address his severe symptoms and dec reased function. At this time we find it necessary to discharge this patient from therapy se rvices. The last progress note or the patients initial evaluation will serve as objective status fo r purposes of discharge. Electronically signed by: Ja Gallardo, PT, 05/31/2019 9:47 Patient Name: Jose Raul Palafox/: 1960/ documented in this encounter Plan of Treatment Not on filedocumented as of this encounter Visit Diagnoses + + | Diagnosis | + + | Other spondylosis with radiculopathy, lumbar region | + + documented in this encounter"
--- OUTSIDE RECORDS SUMMARY | ~2020-03-18 | XMS | Encounter Summary ---
Demographics + + + | Address | [address] | | | [place] [address] | + + + | Home Phone [...] Providers + +------+ + | Care Assistant Loan Processor Name | Role | Phone | + +------+ + PCP | Unavailable | + +------+ + Encounter Details +--------+ + + + + | Date | Type | Department | Care Team | Description | +--------+ + + + + | 12/04/ | Hospital | [facility] | | | | 2002 | Encounter | CONVERSION [address] | | | | | | [address] | | | | | | [place] | | | | | | [address] | | | | | | [phone] | | | +--------+ + + + [...]
--- OUTSIDE RECORDS SUMMARY | ~2020-03-18 | XMS | Encounter Summary ---
Demographics + + + | Address | [address] | | | [place] [address] | + + + | Home Phone [...] + + + | Author | [facility] | | | and [place] | + + + | Organization | [facility] | | | [...] Team Providers + +------+ + | Care Toe Closing Machine Tender Name | Role | Phone | + +------+ + | Gary Gomez MD | PCP | | + +------+ + Reason for Visit +--------+--------+ + | Reason | Onset | Comments | | | Date | | +--------+--------+ + | Other | 01/24/ | | | | 2012 | | +--------+--------+ + Encounter Details +--------+ + + + + | Date | Type | Department | Care Team | Description | +--------+ + + + + | 01/24/ | Telephone | [facility] | Jameson Espinoza, | Other | | 2012 | | MEDICINE | MD [address] | | | | | REH[address] | [place] | | | | | [address] | [id number] | | | | | [place] | | | | | | [address] | | | | | | [phone] | | | +--------+ + + + [...] this encounter Miscellaneous Notes Telephone Encounter - Carmen Martinez RN - 01/24/2013 12:41 PM PDTPatient contacted to be notified that his referral for neurosurgery was denied due to the fact that specialty refer rals have to come from the [place]. Patient states he is aware of this and has already spoke to h is PCP about this situation. Patient had no further questions. Carmen Martinez Electronical ly signed by Carmen Martinez RN at 01/24/2013 12:46 PM PDTdocumented in this encounter Plan of Treatment Not on filedocumented as of this encounter Visit Diagnoses Not on filedocumented in this encounter"
--- OUTSIDE RECORDS SUMMARY | ~2020-03-18 | XMS | Encounter Summary ---
Demographics + + + | Address | [address] | | | [place] [address] | + + + | Home Phone | | + + + | Preferred Language | Unknown | + + + | Marital Status | | + + + | Synagogue Affiliation | Unknown | + + + | Race | White | + + + | Ethnic Group | Not or | + + + Author + + + | Author | [facility] | | | and [place] | + + + | Organization | [facility] | | | and [...] Team Providers + +------+ + | Care Cellophane Wrapping Examiner Name | Role | Phone | + +------+ + | Gary Gomez MD | PCP | | + +------+ + Reason for Visit Evaluate & Treat (Routine) +--------+--------+ + + + + | Status | Reason | Specialty | Diagnoses / | Referred By | Referred To | | | | | Procedures | Contact | Contact | +--------+--------+ + + + + | Closed | | Rehabilitatio | Diagnoses | Collette Gomez | | | | n | Clyde | Gary | Neiffer, | | | | | spondylosis | MD Garry | Ja Dempsey, PT | | | | | with | [address] | | | | | radiculopath | [address] [place] | | | | | y, lumbar | DRIVE [place] | [place], [place] | | | | | region | [facility], [place] | [address] Phone: | | | | | Procedures | [address] | [phone] | | | | | Pt eval | Phone: | Fax: | | | | | | [phone] | [phone] | | | | | | Fax: | | | | | | | [phone] | | +--------+--------+ + + + + Encounter Details +--------+---------+ + + + | Date | Type | Department | Care Team | Description | +--------+---------+ + + + | 09/27/ | Office | [facility] | Khris Gallardo, | Other spondylosis | | 2019 | Visit | [facility] | Ja Dempsey, PT [address] | with radiculopathy, | | | | THERAPY [address] [place] | lumbar region | | | | [place], [place] | [place] [address] | (Primary Dx) | | | | [address] | [phone] | | | | | [phone] | | | +--------+---------+ + + + [...] encounter Progress Notes Ja Graham, PT - 09/27/2018 10:00 AM PSTFormatting of this note might be diffe rent from the original. [facility] THERAPY [address] [place] [address] Physical Therapy Daily Treatment Note Date: 09/27/2018 Patient Information Patient Name: Jose Raul Palafox Date of : 1960 Age: 57 y.o. Encounter Diagnoses Code Name Primary? M47.26 Other spondylosis with radiculopathy, lumbar region Yes Date of Onset: No data was found Referring Provider: Gary Gomez MD Start Time: 0950 Stop time: 0 Duration: 30 minutes Timed Treatment Codes: 30 minutes # of PT Visits to Date: 2 Subjective: Bill presents this session in significant pain and is noticeably uncomfortable seated on p linth with mild diaphoresis and shallow, erratic breaths. He states that his right low back/ hip pain has been very severe as well as radiation down right leg. Pain Assessment: Pain Scale Used: NUMERIC Pain Rating Pre Assessment: 8 Location: right low back/posterior hip, right leg Objective: Discussed with Bill his POC, movements/activities that aggravate and alleviate symptoms an d did quick reassessment Assessment: Based on Bill's report of significantly increased symptoms as well as reassessment, it was recommended that bill [facility] and right leg symptoms. Further imaging of his lumbar spine/SI joints may be beneficial in help ing determine next steps in getting him appropriate intervention/care. Bill agreed with thi s recommendation and will call his PCP to schedule urgent follow up. Plan: Will hold further treatment for the time being. Electronically signed by: Ja Gallardo, PT, 09/27/2018 10:33 Patient Name: Jose Raul Palafox/: 1960/ documented in this encounter Plan of Treatment Not on filedocumented as of this encounter Visit Diagnoses + + | Diagnosis | + + | Other spondylosis with radiculopathy, lumbar region - Primary | + + documented in this encounter"
--- OUTSIDE RECORDS SUMMARY | ~2020-03-18 | XMS | Encounter Summary ---
Demographics + + + | Address | [address] | | | [place] [address] | + + + | Home Phone [...] Team Providers + +------+ + | Care Counselor Nurs[employer] Name | Role | Phone | + +------+ + | Gary Gomez MD | PCP | | + +------+ + Encounter Details +--------+ + + + + | Date | Type | Department | Care Team | Description | +--------+ + + + + | 07/04/ | Abstract | [facility] [place] | Cecil Hensley, | | | 2017 | | NEUROSURGERY [address] | PA-C [address] | | | | [address] | [address] [place] | | | | | [place], [place] | [place] [address] | | | | | [address] | [phone] | | | | | [phone] | | | +--------+ + + + [...]
--- OUTSIDE RECORDS SUMMARY | ~2020-03-18 | XMS | Encounter Summary ---
Demographics + + + | Address | [address] | | | [place] [address] | + + + | Home Phone [...] Team Providers + +------+ + | Care Wood Bucker Name | Role | Phone | + [...] leg | Jameson Jewell MD | Santosh Jewell MD [address] | | | Required | Rehabilitatio | numbness | [address] | | | | n | Right leg | [address] | [place], | | | | | pain Right | [place], | [place] [address] | | | | | leg weakness | [place] [address] | Phone: | | | | | Right foot | Phone: | [phone] | | | | | drop | [phone] | Fax: | | | | | | Fax: | [phone] | | | | | | [phone] | | +--------+ + + + + + Reason for Visit + + + | Reason | Comments | + + + | Numbness | right leg | + + + Evaluate & Treat [...] | | Medicine and | Lumbar | Jungwmyrna | Santosh Jewell MD [address] | | | | Rehabilitatio | radiculopath | MD Garry | [address] | | | | n | y | [address] | [place], | | | | | | [place] | [place] [address] | | | | | | [address] [place] | Phone: | | | | | | [place] | [phone] | | | | | | [address] | Fax: | | | | | | Phone: | [phone] | | | | | | [phone] | | | | | | | Fax: | | | | | | | [phone] | | +--------+--------+ + + + + Encounter Details +--------+---------+ + + + | Date | Type | Department | Care Team | Description | +--------+---------+ + + + | 03/29/ | Office | [facility] [place] | Jameson Espinoza, | Right leg numbness | | 2014 | Visit | PHYSIATRY [address] | [address] | (Primary Dx); Right | | | | [address] | [place], [place] | leg pain; Right leg | | | | [place] | [address] | weakness; Right foot | | | | [address] | | drop; Tobacco | | | | [phone] | | dependence; History | | | | | | of hepatitis C | +--------+---------+ + + + Social History [...] +---------+ + + | Blood Pressure | 128/70 | 03/29/2014 8:35 AM | | | | | PDT | | + +---------+ + + | Pulse | 88 | 03/29/2014 8:35 AM | | | | | PDT | | + +---------+ + + | Temperature | - | - | | + +---------+ + + | Respiratory Rate | 18 | 03/29/2014 8:35 AM | | | | | PDT [...] +---------+ + + documented in this encounter Patient Instructions Patient Instructions Jameson Espinoza MD - 03/29/2014 9:19 AM PDTPlease attend your schedu led nerve [...] encounter Progress Notes Jameson Espinoza MD - 03/29/2014 8:45 AM PDTFormatting of this note might be different fro m the original. Subjective: Patient ID: Jose Raul Palafox is a 53 y.o. male with bilateral lower extremity numbness, weakn ess and pain HPI Jose Raul Palafox was last seen by me 01/2013. At that time he had nerve conduction study and EMG of the right upper extremity, which demonstrated chronic right C6 radiculopathy. He re ports that he has not seen the neurosurgeon since his last appointment, which was colin bustillos. He presents to the clinic today with [...] He reports that the right lower extremity are constant in timing. Doyle chiu reports weakness in both legs, worse in the right leg compared to the left. He describes the weakness as his legs wanting to give out on him when he has pain and also reports that h is right knee won't allow him to stand from a seated position. He reports that he has histo ry of right knee surgery that contributes to his right knee pain and weakness. He denies in continence of bowel or bladder. He denies saddle anesthesia. He denies taking any blood th inning medications such as Coumadin or heparin. He denies having an implanted electronic de vice such as a pacemaker. He denies a history of diabetes. He has history of thyroid disea se for 20+ years. He is currently smoking 1/2 pack cigarettes per day. He is in a class, t hat is trying to help him stop smoking. He started smoking at age 11 or 12. He had quit fo r 12 years and he started again in 2003. He reports that his physical therapist tried to tr eat his low back, but therapy had to be stopped because it was making neck symptoms worse. Past Medical History Diagnosis Date Hepatitis C COPD (chronic obstructive pulmonary disease) (HCC) Restless leg syndrome Asthma Thyroid disease Hyperlipidemia Diverticulitis Hernia, hiatal Past Surgical History Procedure Date Cholecystectomy Shoulder surgery Knee surgery right Family History Problem Relation Age of Onset Heart disease Mother Heart disease Father Heart disease Sister Heart disease Brother Heart disease Sister History Social History Marital Status: Spouse Name: N/A Number of Children: N/A Years of Education: N/A Social History Main Topics Smoking status: Current Every Day Smoker -- 0.3 packs/day for 10 years Smokeless tobacco: None Alcohol Use: Yes Drug Use: Yes Special: Marijuana Sexually Active: Yes -- Male partner(s) Other Topics Concern None Social History Narrative [...] 75 mg by mouth 2 times daily. HYDROcodone-acetaminophen (NORCO) 5-325 mg per tablet Take 1 tablet by mouth every 6 ho urs as needed. levothyroxine (SYNTHROID, LEVOTHROID) 137 MCG tablet Take 137 mcg by mouth every mornin g (before breakfast). loperamide (IMODIUM) 2 mg capsule Take 2 mg by mouth 4 times daily as needed. nortriptyline (PAMELOR) 10 MG capsule 1 by mouth at bedtime for 7 days; then 2 at bedti me for 7 days; then 3 at bedtime for 7 days; then 4 at bedtime 120 capsule 1 omeprazole (PRILOSEC) 20 mg capsule Take [...] and are negative. Objective: Physical Exam BP 128/70 | Pulse 88 | Resp 18 GEN: Alert & Oriented x 3, no [...] speech normal, concentration intact, vasu ry intact. Sensory reduced in the right lower extremity over the L4 and L5 dermatomes. Str ength is normal 5/5 in the left lower extremities with hip flexion, knee flexion, knee exten vito, ankle dorsiflexion, ankle plantar flexion and EHL. There was 4/5 ankle dorsiflexion, knee flexion and knee extension strength in the right lower extremity. Deep tendon reflexes are 2+ in both upper extremities over the biceps, triceps, and brachioradialis bilaterally. Deep tendon reflexes are 2+ in both lower extremities over the patella and Achilles. Jeanne nski's was down going bilaterally. There was no clonus at either ankle. Gait very antalgic . Assessment: 1. Right leg numbness 2. Right leg pain 3. Right leg weakness 4. Right foot drop 5. Tobacco dependence 6. History of hepatitis C Plan: Mr. Ambrose differential diagnosis for right lower extremity symptoms include, but are not limited to right L5 radiculopathy, lumbar spinal stenosis, and peroneral neuropathy. Mr. Palafox will return to the clinic for nerve conduction study and EMG of the right lower extremity to evaluate for the differential diagnosis above. Today greater than 3 minutes was spent discussing smoking cessation. We discussed the impo rtance of him working to stop smoking. We discussed that smoking contributes to the further degeneration of the intervertebral discs and may result in more nerve pain like he is joe day. We also discussed that if he were to have surgery or his neck or back that the likelihoo d of surgical failure is much higher if he continues to smoke. Today we reviewed that the nerve study will hopefully help us localize the origin of sympto ms. Today we discussed how to prepare for nerve conduction study and EMG. We discussed not wearing lotion and bringing a short sleeve shirt to wear. We discussed the process of the test, which involves small shocks to the nerves and that the study may include pin sticks, w ithout shock into the muscles. Mr. Palafox would benefit from lumbar MRI. If nerve study demonstrates lumbar radiculopathy , as anticipated, lumbar MRI will be requested/recommended. Approximately 45 minutes was spent face to face with Jose Raul Palafox, over half of which was spent formulating and discussing their medical treatment plan. Jameson Espinoza MD (Jr.) Carmen Ladd RN - 03/29/2014 8:38 AM PDTPatient states 8/10 back pain. Patient complains of numbness and pa in to right foot. [facility] umented in this encounter Plan of Treatment + + +--------+ + + | Name | Type | Priori | Associated Diagnoses | Order Schedule | | | | ty | | | + + +--------+ + + | Ambulatory referral | Outpatient | Routin | Right leg numbness | Ordered: 03/29/2014 | | to Physical Medicine | Referral | e | Right leg pain | | | Rehab | | | Right leg weakness | | | | | | Right foot drop | | + + +--------+ + + documented as of this encounter Visit Diagnoses + + | Diagnosis | + + | Right leg numbness - Primary Disturbance of skin sensation | + + | Right leg pain Pain in limb | + + | Right leg weakness Other musculoskeletal symptoms referable to limbs | + + | Right foot drop Other acquired deformity of ankle and foot | + + | Tobacco dependence Tobacco use disorder | + + | History of hepatitis C Personal history of other infectious and parasitic disease | + + documented in this encounter"
--- OUTSIDE RECORDS SUMMARY | ~2020-03-18 | XMS | Encounter Summary ---
Demographics + + + | Address | [address] | | | [place] [address] | + + + | Home Phone | | + + + | Preferred Language | Unknown | + + + | Marital Status | | + + + | Baptist Affiliation | Unknown | + + + | Race | White | + + + | Ethnic Group | Not or | + + + Author + + + | Author | [facility] | | | and [place] | + + + | Organization | [facility] | | | [...] Team Providers + +------+ + | Care Hiv/Aids Care Nurse Name | Role | Phone | + +------+ + | aGry Gomez MD | PCP | | + +------+ + Reason for Visit + + + | Reason | Comments | + + + | Post-op Exam | | + + + Encounter Details +--------+---------+ + + + | Date | Type | Department | Care Team | Description | +--------+---------+ + + + | 03/23/ | Office | [facility] | Denton Barakat | Spinal stenosis of | | 2019 | Visit | NEUROSURGERY [address] | MD Olivier [address] | lumbar region with | | | | [address] | [address] [place] | neurogenic | | | | [place], [place] | [place] [address] | claudication | | | | [address] | [phone] | (Primary Dx) | | | | [phone] | | | +--------+---------+ + + + [...] + + + | Blood Pressure | 108/68 | 03/23/2019 10:48 AM | | | | | PDT | | + + + + + | Pulse | 69 | 03/23/2019 10:48 AM | | | [...] + + + + | Weight | 100.9 kg (222 lb 7.1 | 03/23/2019 10:48 AM | | | | oz) | PDT | | + + + + + | Height | 188 cm (6' 2") | 03/23/2019 10:48 AM | | | | | PDT | | + + + + + | Body Mass Index | 28.56 | 03/23/2019 10:48 AM | | | [...] of this encounter Patient Instructions Patient Instructions Dina Olivares, Director Group Sales - 03/23/2019 10:30 AM PDTIt was a pleasure to see you today. Here is what we discussed. - Remember that recovery is a process and the recovery time is 1 year. You will have some w axing and waning of symptoms. The pain will vary in intensity and vary from day to day. As t rosetta moves on the frequency and intensity of the pain will slowly improve. Our goal is for yo u to be able to walk daily for at least 2 miles. Please work up to this goal slowly. Let terrie n be your guide. If you are doing an activity that starts causing you pain back off for a co uple of days and ease back into it slowly. We don't want you taking any risks that do not ne ed to be taken. - We recommend that you continue to use your cane or assistive devise when walking to try a nd avoid any further falls or injuries. - We recommend that you begin working on the following walking program to strengthen your c ore strength. Stage 1 - Begin slowly walking for 2 miles. Take your time with this adding a little bit of distance every few days until you are walking 2 miles. Stage 2 - Once you are walking comfortably for 2 miles, work on speeding up your walk until you can walk 2 miles in under 45 minutes. Stage 3 - Once you are able to walk comfortably for 2 miles in under 45 minutes, add a smal l weight to each hand (no more than 1 pound in each hand) and try to walk without letting yo ur arms twist you. - If your symptoms worsen or if you have any further questions or concerns please give our office a call to discuss this and a possible follow up appointment. T documented in this encounter Progress Notes Dina Olivares, Director Group Sales - 03/23/2019 10:30 AM PDT Denton Barakat MD [address] [place] [address], [address] [place], [place] [address] FAX: [phone] NEUROSURGERY FOLLOW-UP CHIEF COMPLAINT: Chief Complaint Patient presents with Post-op Exam HISTORY OF PRESENT ILLNESS: Jose Raul Palafox is a 58 y.o. male that had a laminectomy at L2-5 for lumbar spinal stenosis on 02/26/2019 by me. He returns and overall is doing well. Today he states that he has been able to sleep at night now and stand for longer periods of time before being in pain. He states that a few days after surgery he was about 50% better, today he is about 30% better than he was prior to surgery but he is still happy with the re sults. He does also have pain over his right quadricept that has not changed since before [facility]. He has been walking as much as directed. He is taking pain medications, however this is no w being managed by his PCP. He has had no issues with his surgical site. PAST MEDICAL HISTORY: Past Medical History: Diagnosis Date Acute bronchitis Acute upper respiratory infection, unspecified Allergic rhinitis, unspecified Anxiety Asthma CAD in minto artery Cervical radiculopathy at C6 Right on [...] Cor Angio; Surgeon: Latonia Olson MD; Location: [facility] CV LAB CARDIAC CATHERIZATION N/A 11/03/2016 Procedure: CV Cor Angio; Surgeon: Latonia Olson MD; Location: [facility] CV LAB CARDIAC CATHERIZATION N/A 12/23/2016 Procedure: CV LHC; Surgeon: Latonia Olson MD; Location: [facility] CV LAB CERVICAL SPINE SURGERY N/A 01/07/2015 Procedure: C3-4, C4-5, C5-6, C6-7, Anterior Cervical Discectomy w/ Fusion and Plating, Pos terior Fusion at C3-4, C4-5, C5-6, C6-7, C7-T1, and T1-2; Surgeon: Aleksander Stern DO; Loc ation: [facility] MAIN OR CHOLECYSTECTOMY 2010 Dr. Skaggs FINGER FRACTURE SURGERY Left 2003 middle finger crush injury; tip replacement FINGER SURGERY Left 1986 thumb attachment KNEE ARTHROSCOPY Right LUMBAR SPINE SURGERY Right 02/26/2019 Procedure: Right L2-L3, L3-L4, L4-L5 Decompressive Laminectomy; Surgeon: Dentno harrell MD; Location: [facility] MAIN OR ROTATOR CUFF REPAIR Left 1995 ULNAR TUNNEL RELEASE Left 1995 CURRENT MEDICATIONS: Current Outpatient Medications Medication Sig Dispense Refill aspirin 81 MG EC tablet Take 1 tablet by mouth Daily. 30 tablet atorvaSTATin (LIPITOR) 80 MG tablet Take 1 tablet by mouth nightly. Do not take for a w hughes 30 tablet 11 buPROPion (WELLBUTRIN SR) 150 mg 12 hr tablet Take 1 tablet by mouth 2 times daily. busPIRone (BUSPAR) 15 mg tablet Take 15 mg by mouth 2 times daily. cyclobenzaprine (FLEXERIL) 10 mg tablet Take 0.5-1 tablets by mouth 3 times daily as ne eded for Muscle spasms. 90 tablet 3 DULoxetine (CYMBALTA) [address] capsule Take [...] 3 times daily as needed for Pain. ipratropium (ATROVENT HFA) 17 mcg/puff inhaler Inhale [...] patient reports that he quit smoking about 2 months ago. His smoking use included ciga rettes. He has a 5.00 pack-year smoking history. He has never used smokeless tobacco. He rep orts that he drinks about 1.2 oz of [...] no recent profound weight sue nges. EYES: + eye problems, no impaired sight, + use of corrective lenses, no eye injury, no ana ble vision, no transient blindness. EARS, NOSE, AND THROAT: No changes in taste or smell, no hearing difficulty, + ringing in the ears, no ear drainage, no ear injury, + dizziness, no voice changes, no difficulty swall owing, no significant snoring, no sleep apnea/CPAP, no sinus problems, + major dental work. NEUROLOGICALLY: Please see the review of systems discussed above in the history of present illness. In addition, He has numbness and pain of arms, numbness and pain of legs, weaknes s, muscle aching, and numbness of face. PSYCHIATRIC: No depression, + difficulty sleeping, + anxiety, no bipolar disorder. CARDIOVASCULAR: No heart attacks, no heart murmur, + heart fluttering, no chest pain, no a nkle swelling. LUNG DISEASE: + shortness of breath, + cough, no tuberculosis, no bloody cough, + asthma, + emphysema/COPD. GASTROINTESTINAL: No bowel disease, no nausea or vomiting, + rectal bleeding/hemorrhoids, no constipation, no fecal stool incontinence, no liver/gallbladder disease, no abdominal terrie n, no ulcers. KIDNEY DISEASE: No urinary frequency, no painful [...] rheumatoid arthritis. INTERIM PHYSICAL EXAMINATION: Blood pressure 108/68, pulse 69, height 1.88 m (6' 2"), weight 100.9 kg (222 lb 7.1 oz), Sp O2 97 %. Body mass index is 28.56 kg/m. GENERAL: Jose Raul Palafox is in no acute distress with unlabored respirations. NEUROLOGICAL EXAMINATION: MENTAL STATUS: He is awake, alert, and oriented. He follows simple and complex commands ASSESSMENT: Status post decompressive lumbar laminectomies doing well. Outpatient Morphine Equivalent Daily Dose (MEDD) 03/23/19 and after 15-30 mg MEDD Order Name [...] MEDD PEG Pain screening tool: Total score: 7.33 (03/23/19 1101) Encounter Diagnosis Name Primary? Spinal stenosis of lumbar region with neurogenic claudication Yes PLAN: Overall, the he is doing well. Some of the preoperative symptoms are improved.I have encou raged him to continue using his cane, and to gradually resume the daily walking that he was doing before his back became too bad for him to do it daily preoperatively. halfway pain medication should be continued and tapered by their primary care provider or pain management The patient no longer needs follow-up for this issue. They can contact us should new issue s develop. Thank you for allowing me to care for this patient. I, Denton Barakat MD, personally performed the services described in this documentatio n, as scribed by ALTON Nielsen in my presence, and it is both accurate and com plete. Denton Barakat MD 03/23/19 ELECTRONICALLY SIGNED BY: Denton Barakta MD, 03/23/2019 11:12 documented in this encounter Plan of Treatment Not on filedocumented as of this encounter Visit Diagnoses + + | Diagnosis | + + | Spinal stenosis of lumbar region with neurogenic claudication - Primary Spinal | | stenosis, lumbar region, with neurogenic claudication | + + documented in this encounter
--- OUTSIDE RECORDS SUMMARY | ~2020-03-18 | XMS | Encounter Summary ---
Demographics + + + | Address | [address] | | | [place] [address] | + + + | Home Phone | | + + + | Preferred Language | Unknown | + + + | Marital Status | | + + + | Oriental Orthodox Affiliation | Unknown | + + + | Race | White | + + + | Ethnic Group | Not or | + + + Author + + + | Author | [facility] | | | and [place] | + + + | Organization | [facility] | | | and [...] Team Providers + +------+ + | Care Detector Car Operator Name | Role | Phone | + +------+ + | Gary Gomez MD | PCP | | + +------+ + Reason for Visit + +--------+ + | Reason | Onset | Comments | | | Date | | + +--------+ + | Insurance | 09/20/ | | | Authorization | 2017 | | + +--------+ + Encounter Details +--------+ + + + + | Date | Type | Department | Care Team | Description | +--------+ + + + + | 09/20/ | Telephone | [facility] | Aleksander Stern, | Insurance | | 2017 | | NEUROSURGERY [address] | DO [address] | Authorization | | | | [address] | [address] [place], [place] | | | | | [place], [place] | [address] | | | | | [address] | | | | | | [phone] | | | +--------+ + + + [...] this encounter Miscellaneous Notes Telephone Encounter - Ria Novak - 09/20/2016 2:13 PM PSTMessage made in errorEle ctronically signed by Ria Novak at 09/20/2016 2:13 PM PSTdocumented in this encoun ter Plan of Treatment Not on filedocumented as of this encounter Visit Diagnoses Not on filedocumented in this encounter"
--- OUTSIDE RECORDS SUMMARY | ~2020-03-18 | XMS | Encounter Summary ---
Demographics + + + | Address | [address] | | | [place] [address] | + + + | Home Phone [...] Team Providers + +------+ + | Care Lean Manufacturing Engineer Name | Role | Phone | + +------+ + | Gary Gomez MD | PCP | | + +------+ + Reason for Visit +--------+--------+ + | Reason | Onset | Comments | | | Date | | +--------+--------+ + | Other | 11/04/ | records sent | | | 2016 | | +--------+--------+ + Encounter Details +--------+ + + + + | Date | Type | Department | Care Team | Description | +--------+ + + + + | 11/04/ | Telephone | [facility] | Latonia Olson, | Other (records sent) | | 2017 | | CARDIOLOGY [address] | MD [address] | | | | | [place], | [place], [place] | | | | | [place] [address] | [address] | | | | | [phone] | | | +--------+ + + + [...] Telephone Encounter - Diana Wilson RN - 11/04/2016 4:59 PM PDTH&P from 11/03/16 along with script for Brilinta 90mg faxed to [facility] - Dr Gomez at [phone] ..................... ......................Diana Wilson RN on 11/04/16 at 16:59 documented in this encounter Plan of Treatment Not on filedocumented as of this encounter Visit Diagnoses Not on filedocumented in this encounter"
--- OUTSIDE RECORDS SUMMARY | ~2020-03-18 | XMS | Encounter Summary ---
Demographics + + + | Address | [address] | | | [place] [address] | + + + | Home Phone | | + + + | Preferred Language | Unknown | + + + | Marital Status | | + + + | Confucianist Affiliation | Unknown | + + + [...] Team Providers + +------+ + | Care Game Producer Name | Role | Phone | + +------+ + | Gary Gomez MD | PCP | | + +------+ + Reason for Visit + +--------+ + | Reason | Onset | Comments | | | Date | | + +--------+ + | Referral (Follow up) | 11/17/ | | | | 2016 | | + +--------+ + Encounter Details +--------+ + + + + | Date | Type | Department | Care Team | Description | +--------+ + + + + | 11/17/ | Telephone | [facility] | Latonia Olson, | Referral (Follow up) | | 2016 | | CARDIOLOGY [address] | MD [address] | | | | | [place], | [place], [place] | | | | | [place] [address] | [address] | | | | | [phone] | | | +--------+ + + + [...] this encounter Miscellaneous Notes Telephone Encounter - Sona Weinberg - 11/22/2016 2:44 PM PDTReceived [employer] authorizat ion on November 19, scanned into referral & approved. Original auth sent to [employer] [facility] to [facility] into patient's chart. Closing.Electronically signed by Sona Weinberg at 07/2016 2:59 PM PDTTelephone Encounter - CampbellKanika Best - 11/17/2016 2:26 PM PDTThitiffanie is a VA patient that will need a 2-3 week follow-up cardiology appointment post 11-03-[address] [facility]. Patient has, also, been referred for cardiac rehab and cardiology PSR's are being asked to let Raymundo Henriquez in Cardiac Rehab know when patient's appointment is schedule d so that Cardiac Rehab can coordinate an appointment with the patient on the same day. Called and spoke to patient to see if he has been in contact with Dr. Gomez ([facility] P[facility]) or juan m [facility]ning [facility] regarding [facility] authorization for both a cardiology appointment and cardiac rehab. Per patient, he spoke to [facility] a couple of days ago and they are working on authorizati on. Thanked patient for the information and advised him that we would be calling him back t o schedule as soon as we receive the VA authorization. elephone Encounter - Kanika Hightower Best - 11/17/2016 2:25 PM PD T----- Message from Diana Wilson RN sent at 11/17/2016 11:55 PDT ----- Regarding: FW: schedule Kanika, please see previous note. Referral for appt was on your desk yesterday. Thanks, Cece motta ----- Message ----- From: Pricilla Zaldivar RN Sent: 11/12/2016 9:53 To: Diana Wilson RN, Raymundo Henriquez Subject: schedule Good morning Diana, This gentleman is from [place]. He is to see binder operator in 2-3 weeks post 11/03/16 disch arge. He isn't scheduled yet. When he is scheduled for follow-up, would you please let Raymundo know and we'll schedule him for the same day? Thanks! Pricilla documented in this encou nter Plan of Treatment Not on filedocumented as of this encounter Visit Diagnoses Not on filedocumented in this encounter"
--- OUTSIDE RECORDS SUMMARY | ~2020-03-18 | XMS | Encounter Summary ---
Demographics + + + | Address | [address] | | | [place] [address] | + + + | Home Phone | | + + + | Preferred Language | Unknown | + + + | Marital Status | | + + + | Yazdanism Affiliation | Unknown | + + + [...] Team Providers + +------+ + | Care Supply Assistant Name | Role | Phone | + +------+ + | Gary Gomez MD | PCP | | + +------+ + Encounter Details +--------+ + + + + | Date | Type | Department | Care Team | Description | +--------+ + + + + | 12/31/ | Abstract | [facility] [place] | Aleksander Stern, | | | 2014 | | NEUROSURGERY [address] | [address] | | | | | [address] | [address] [place] | | | | | [place] | [address] | | | | | [address] | | | | | | [phone] | | | +--------+ + + + [...]
--- OUTSIDE RECORDS SUMMARY | ~2020-03-18 | XMS | Encounter Summary ---
Demographics + + + | Address | [address] | | | [place] [address] | + + + | Home Phone | | + + + | Preferred Language | Unknown | + + + | Marital Status | | + + + | Taoism Affiliation | Unknown | + + + [...] Team Providers + +------+ + | Care Process Improvement Manager Name | Role | Phone | [...] | Aleksander Jewell DO | [address] | | | | | weakness | [address] | [place], | | | | | Procedures | [address] | [place] | | | | | MRI Brain wo | [place] | [address] | | | | | Contrast | [address] | Phone: | | | | | | Phone: | [phone] | | | | | | [phone] | Fax: | | | | | | Fax: | [phone] | | | | | | [phone] | | +--------+--------+ + + + + [...] + + + + | 12/11/ | [facility] | [facility] | Aleksander Stern, | Right sided weakness | | 2015 | Encounter | MED CTR MRI [address] | DO [address] | | | | | [place], | [address] [place], [place] | | | | | [place] [address] | [id number] | | | | | [phone] | | | +--------+ + + + [...] + +--------+ + + + | MRI BRAIN WO | Routin | 12/11/2014 | Right sided | Results for this | | CONTRAST | e | 4:01 PM | weakness | procedure are in the | | | | PDT | | results section. | + +--------+ + + + documented in this encounter Results MRI Brain wo Contrast (12/11/2014 4:01 PM PDT) + + | Specimen | + + | | + + + + + | Narrative | Performed At | + + + | UNENHANCED BRAIN MRI 12/11/2014 3:40 PM CLINICAL HISTORY: Right | [facility] | | hemisoma weakness COMPARISON: Thoracic MRI from the same day | [facility] | | TECHNIQUE: The following 3T MR sequences of the brain were | [facility] | | obtained: 1. Axial and sagittal T1. 2. Axial T2, FLAIR, SWI, DWI | - IMAGING | | and ADC. FINDINGS: A solitary small, round T2/FLAIR hyperintense | | | focus is present in the white matter along the anterior margin of the | | | right basal ganglia on image 14. Few additional tiny hyperintense | | | foci are suggested posteriorly in the left centrum semiovale. The | | | brain parenchyma, ventricles, brainstem and cerebellum are otherwise | | | unremarkable. There is no mass effect, evidence of intracranial | | | hemorrhage, abnormal diffusion restriction or extra-axial fluid | | | collection/mass. There is mild mucous membrane thickening throughout | | | the paranasal sinuses. The orbits, sella region, mastoid air | | | cells, basilar cisterns and osseous structures are unremarkable. | | | Major intracranial vessels and dural sinuses demonstrate grossly | | | normal flow voids. IMPRESSION - 1. FEW TINY T2/FLAIR | | | HYPERINTENSE FOCI WITHIN THE RIGHT FRONTAL AND LEFT PARIETAL CEREBRAL | | | WHITE MATTER, NON-SPECIFIC BUT POTENTIALLY REFLECTING EARLY CHRONIC, | | | MICROVASCULAR ISCHEMIC GLIOSIS. 2. OTHERWISE UNREMARKABLE | | | UNENHANCED MR APPEARANCE OF THE BRAIN. 3. MILD, GENERALIZED | | | PARANASAL SINUS DISEASE. Dictated and Signed by: Anderson Moore MD | | | Electronically signed: 12/11/2014 4:38 PM | | + + + + + | Procedure Note | + + | [facility], Rad Results In - 12/11/2014 4:41 PM PDT UNENHANCED BRAIN MRI 12/11/2014 3:40 PM | | | | CLINICAL HISTORY: Right hemisoma weakness | | | | COMPARISON: Thoracic MRI from the same day | | | | TECHNIQUE: The following 3T MR sequences of the brain were obtained: | | 1. Axial and sagittal T1. | | 2. Axial T2, FLAIR, SWI, DWI and ADC. | | | | FINDINGS: A solitary small, round T2/FLAIR hyperintense focus is present in the | | white matter along the anterior margin of the right basal ganglia on image 14. | | Few additional tiny hyperintense foci are suggested posteriorly in the left | | centrum semiovale. The brain parenchyma, ventricles, brainstem and cerebellum | | are otherwise unremarkable. There is no mass effect, evidence of intracranial | | hemorrhage, abnormal diffusion restriction or extra-axial fluid collection/mass. | | There is mild mucous membrane thickening throughout the paranasal sinuses. The | | orbits, sella region, mastoid air cells, basilar cisterns and osseous structures | | are unremarkable. Major intracranial vessels and dural sinuses demonstrate | | grossly normal flow voids. | | | | IMPRESSION - | | 1. FEW TINY T2/FLAIR HYPERINTENSE FOCI WITHIN THE RIGHT FRONTAL AND LEFT | | PARIETAL CEREBRAL WHITE MATTER, NON-SPECIFIC BUT POTENTIALLY REFLECTING EARLY | | CHRONIC, MICROVASCULAR ISCHEMIC GLIOSIS. | | | | 2. OTHERWISE UNREMARKABLE UNENHANCED MR APPEARANCE OF THE BRAIN. | | | | 3. MILD, GENERALIZED PARANASAL SINUS DISEASE. | | | | Dictated and Signed by: Anderson Moore MD | | Electronically signed: 12/11/2014 4:38 PM | + + + + + + + | Performing | Address | City/State/Zipcode | Phone Number | | Organization | | | | + + + + + | [facility] | [address] | [place], [place] | [phone] | | [facility] | | [address] | | | - IMAGING | | | | + + + + + documented in this encounter Visit Diagnoses + + | Diagnosis | + + | Right sided weakness Muscle weakness (generalized) | + + documented in this encounter"
--- OUTSIDE RECORDS SUMMARY | ~2020-03-18 | XMS | Encounter Summary ---
Demographics + + + | Address | [address] | | | [place] [address] | + + + | Home Phone [...] Team Providers + +------+ + | Care Natural Resources Manager Name | Role | Phone | + +------+ + PCP | Unavailable | + +------+ + Encounter Details +--------+ + + + + | Date | Type | Department | Care Team | Description | +--------+ + + + + | 09/18/ | Hospital | [facility] | | CERVICALGIA | | 2004 | Encounter | CONVERSION [address] | | | | | | [address] | | | | | | [place] | | | | | | [address] | | | | | | [phone] | | | +--------+ + + + [...] + | Diagnosis | + + | Cervicalgia | + + documented in this encounter"
--- OUTSIDE RECORDS SUMMARY | ~2020-03-18 | XMS | Encounter Summary ---
Demographics + + + | Address | [address] | | | [place] [address] | + + + | Home Phone | | + + + | Preferred Language | Unknown | + + + | Marital Status | | + + + | Denominational Affiliation | Unknown | + + + | Race | White | + + + | Ethnic Group | Not or | + + + Author + + + | Author | [facility] | | | and [place] | + + + | Organization | [facility] [...] Team Providers + +------+ + | Care Multicultural Internship Name | Role | Phone | + +------+ + | Gary Gomez MD | PCP | | + +------+ + Reason for Visit +--------+--------+ + | Reason | Onset | Comments | | | Date | | +--------+--------+ + | Other | 08/14/ | Implant card | | | 2016 | | +--------+--------+ + Encounter Details +--------+ + + + + | Date | Type | Department | Care Team | Description | +--------+ + + + + | 08/14/ | Telephone | [facility] | Aleksander Stern, | Other (Implant card) | | 2016 | | NEUROSURGERY [address] | DO [address] | | | | | [address] | [address] [place], [place] | | | | | [place], [place] | [phone] | | | | | [address] | | | | | | [phone] | | | +--------+ + + + [...] Telephone Encounter - Bhargavi Osborne RN - 08/14/2015 1:23 PM PSTCalled Bill henriquez. He w ould like to have another implant card made because he lost his last one. S/P C3-T2 Fusion o n 01/07/15. Implant card made today and sent to address on file. elephone Encounter - Nohemi Fagan - 6 11:07 AM PSTPatient called to check on the status of his request for an implant card. He s moni he called last week to request this for his upcoming trip to [place]. Please advise. El ectronically signed by Nohemi Fagan at 08/14/2015 11:07 AM PSTdocumented in this encounter Plan of Treatment Not on filedocumented as of this encounter Visit Diagnoses Not on filedocumented in this encounter"
--- OUTSIDE RECORDS SUMMARY | ~2020-03-18 | XMS | Encounter Summary ---
Demographics + + + | Address | [address] | | | [place] [address] | + + + | Home Phone | | + + + | Preferred Language | Unknown | + + + | Marital Status | | + + + | Muslim Affiliation | Unknown | + + + | Race | White | + + + | Ethnic Group | Not or | + + + Author + + + | Author | [facility] | | | and [place] | + + + | Organization | [facility] | | [...] Team Providers + +------+ + | Care Nursing Home Director Name | Role | Phone | + [...] Closed | | Radiology | Diagnoses | | [facility] | | | | | Thoracic | [place], | [address] | | | | | radiculopath | Hussein Amaral MD | [place], | | | | | y S/P | [address] | [place] | | | | | cervical | [place] | [address] | | | | | spinal | [place] | Phone: | | | | | fusion | [id number] | [phone] | | | | | Procedures | Phone: | Fax: | | | | | MRI Thoracic | [phone] | [phone] | | | | | Spine wo | Fax: | | | | | | Contrast | [phone] | | | | | | MRI Called | | | | | | | x1-* notify | | | | | | | Nereyda DOS | | | +--------+--------+ + + + + Reason for Visit Diagnostic/Screening (Routine) +--------+--------+ + + + + | Status | Reason | Specialty | Diagnoses / | Referred By | Referred To | | | | | Procedures | Contact | Contact | +--------+--------+ + + + + | Closed | | Radiology | Diagnoses | | [facility] | | | | | Thoracic | [place], | [address] | | | | | radiculopath | Hussein Amaral MD | [place], | | | | | y S/P | [address] | [place] | | | | | cervical | [place] | [address] | | | | | spinal | [place], [place] | Phone: | | | | | fusion | [id number] | [phone] | | | | | Procedures | Phone: | Fax: | | | | | MRI Thoracic | [phone] | [phone] | | | | | Spine wo | Fax: | | | | | | Contrast | [phone] | | | | | | MRI Called | | | | | | | x1-* notify | | | | | | | Nereyda DOS | | | +--------+--------+ + + + + Encounter Details +--------+ + + + + | Date | Type | Department | Care Team | Description | +--------+ + + + + | 09/24/ | Hospital | [facility] | Hussein Padron | Thoracic | | 2017 | Encounter | MED CTR MRI [address] | radiculopathy; S/P | | | | [place], | [place] | cervical spinal | | | | [place] [address] | [address] | fusion | | | | [phone] | | | +--------+ + + + [...] | MRI THORACIC SPINE | Routin | 09/24/2016 | Thoracic | Results for this | | WO CONTRAST | e | 12:12 PM | radiculopathy S/P | procedure are in the | | | | PST | cervical spinal | results section. | | | | | fusion | | + +--------+ + + + documented in this encounter Results MRI Thoracic Spine wo Contrast (09/24/2016 12:12 PM PST) + + | Specimen | + + | | + + + + + | Narrative | Performed At | + + + | UNENHANCED MRI THORACIC SPINE 09/24/2016 11:54 AM CLINICAL | [facility] | | HISTORY: thoracic radiculopathy COMPARISON: Cervical | [facility] | | radiographs May 2016, thoracic MRI November 2014 TECHNIQUE: The | [facility] | | following 1.5T MR sequences of the thoracic spine were obtained: 1. | - IMAGING | | Coronal and sagittal T1. 2. Axial and sagittal T2. 3. Sagittal | | | STIR. FINDINGS: Artifact from ACDF hardware extends from C3 | | | through C7, and artifact from posterior hardware extends from C3 | | | through T2. Changes of wide laminectomy extend from C5-6 through | | | T1-2. No cervical central canal stenosis is visible on provided | | | large [id number] sagittal images through the region. Schmorl's | | | nodes are again visible within multiple mid to lower thoracic | | | vertebral endplates. Vertebral height is maintained, without | | | evident fracture. The spinal cord demonstrates normal caliber and | | | signal intensity. The conus medullaris terminates at approximately | | | T12-L1. Disc space narrowing, Modic endplate hyperintensity and a | | | left paramedian disc osteophyte complex persist at C7-T1, without | | | significant stenosis appreciated. A right paramedian/foraminal | | | disc protrusion persists at T2-3, again appearing to moderately | | | narrow the right neural foramen. A mild posterior disc bulge at | | | T3-4 is more pronounced but only mildly narrows the central canal and | | | foramina. Disc space narrowing, Modic endplate hyperintensity and | | | mild posterior disc bulges persist at T4-5, T5-6 and T6-7, again | | | mildly narrowing the central canal and combining with facet | | | hypertrophy to cause mild to moderate left predominant foraminal | | | stenosis. Mild posterior disc bulges are again evident throughout | | | the lower thoracic spine, mildly narrowing the central canal and | | | foramina. Minimal retrolisthesis persists at T11-12. Imaged | | | thoracic cage, paraspinal structures and imaged intrathoracic and | | | upper abdominal structures are unremarkable. IMPRESSION - 1. 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 2. NO VISIBLE CERVICAL CENTRAL CANAL | | | STENOSIS STATUS POST MULTILEVEL DECOMPRESSION AND ANTERIOR AND | | | POSTERIOR FUSION. Dictated and Signed by: Anderson Moore MD | | | Electronically signed: 09/24/2016 2:08 PM | | + + + + + | Procedure Note | + + | [facility], Rad Results In - 09/24/2016 2:11 PM PST UNENHANCED MRI THORACIC SPINE 09/24/2016 | | 11:54 AMCLINICAL HISTORY: thoracic radiculopathy COMPARISON: Cervical radiographs | | May 2016, thoracic MRI November 2014TECHNIQUE: The following 1.5T MR sequences of the | | thoracic spine were obtained:1. Coronal and sagittal T1.2. Axial and sagittal T2.3. | | Sagittal STIR.FINDINGS: Artifact from ACDF hardware extends from C3 through C7, and | | artifactfrom posterior hardware extends from C3 through T2. Changes of wide | | laminectomyextend from C5-6 through T1-2. No cervical central canal stenosis is visible | | onprovided large sylns-pj-tkwj sagittal images through the region. Schmorl'snodes are | | again visible within multiple mid to lower thoracic vertebralendplates. Vertebral | | height is maintained, without evident fracture. Thespinal cord demonstrates normal | | caliber and signal intensity. The conusmedullaris terminates at approximately | | T12-L1.Disc space narrowing, Modic endplate hyperintensity and a left paramedian | | discosteophyte complex persist at C7-T1, without significant stenosis appreciated.A | | right paramedian/foraminal disc protrusion persists at T2-3, again appearingto | | moderately narrow the right neural foramen.A mild posterior disc bulge at T3-4 is more | | pronounced but only mildly narrowsthe central canal and foramina.Disc space narrowing, | | Modic endplate hyperintensity and mild posterior discbulges persist at T4-5, T5-6 and | | T6-7, again mildly narrowing the central [place] combining with facet hypertrophy to | | cause mild to moderate left predominantforaminal stenosis.Mild posterior disc bulges are | | again evident throughout the lower thoracicspine, mildly narrowing the central canal | | and foramina. Minimal retrolisthesispersists at T11-12.Imaged thoracic cage, paraspinal | | structures and imaged intrathoracic and upperabdominal structures are | | unremarkable.IMPRESSION -1. MULTILEVEL THORACIC DEGENERATIVE DISC DISEASE AND | | SPONDYLOSIS WITH MILDCENTRAL CANAL STENOSIS AND MILD TO MODERATE FORAMINAL STENOSIS | | DETAILEDABOVE, PROGRESSED SLIGHTLY AT T3-4 BUT OTHERWISE SIMILAR TO IMAGING OF NOVEMBER | | 2014.2. NO VISIBLE CERVICAL CENTRAL CANAL STENOSIS STATUS POST MULTILEVELDECOMPRESSION | | AND ANTERIOR AND POSTERIOR FUSION.Dictated and Signed by: Anderson Moore MD | | Electronically signed: 09/24/2016 2:08 PM | | | |Disc space narrowing, Modic endplate hyperintensity and mild posterior disc | |bulges persist at T4-5, T5-6 and T6-7, again mildly narrowing the central canal | |and combining with facet hypertrophy to cause mild to moderate left predominant | |foraminal stenosis. | | | |Mild posterior disc bulges are again evident throughout the lower thoracic | |spine, mildly narrowing the central canal and foramina. Minimal retrolisthesis | |persists at T11-12. | | | |Imaged thoracic cage, paraspinal structures and imaged intrathoracic and upper | |abdominal structures are unremarkable. | | | |IMPRESSION - | |1. 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 | | | |2. NO VISIBLE CERVICAL CENTRAL CANAL STENOSIS STATUS POST MULTILEVEL | |DECOMPRESSION AND ANTERIOR AND POSTERIOR FUSION. | | | |Dictated and Signed by: Anderson Moore MD | | Electronically signed: 09/24/2016 2:08 PM | + + + + + + + | Performing | Address | City/State/Zipcode | Phone Number | | Organization | | | | + + + + + | [facility] | [address] | [place], [place] | [phone] | | [facility] | | [id number] | | | - IMAGING | | | | + + + + + documented in this encounter Visit Diagnoses + + | Diagnosis | + + | Thoracic radiculopathy Thoracic or lumbosacral neuritis or radiculitis, unspecified | + + | S/P cervical spinal fusion Arthrodesis status | + + documented in this encounter"
--- OUTSIDE RECORDS SUMMARY | ~2020-03-18 | XMS | Encounter Summary ---
Demographics + + + | Address | [address] | | | [place] [address] | + + + | Home Phone [...] Providers + +------+ + | Care Decal Decorator Name | Role | Phone | + +------+ + | Gary Gomez MD | PCP | | + +------+ + Reason for Visit +--------+--------+ + | Reason | Onset | Comments | | | Date | | +--------+--------+ + | Other | 11/10/ | records sent | | | 2016 | | +--------+--------+ + Encounter Details +--------+ + + + + | Date | Type | Department | Care Team | Description | +--------+ + + + + | 11/10/ | Telephone | [facility] | Latonia Olson, | Other (records sent) | | 2017 | | CARDIOLOGY [address] | MD [address] | | | | | [address], | [place], [place] | | | | | [place] [address] | [address] | | | | | [phone] | | | +--------+ + + + [...] Telephone Encounter - Diana Wilson RN - 11/10/2016 2:38 PM PDTDischarge summary from 11/05/16 along with order for Cardiac Rehab faxed to Dr Gomez at [phone] ............... ............................Diana Wilson RN on 11/10/16 at 14:38 documented in this encounter Plan of Treatment Not on filedocumented as of this encounter Visit Diagnoses Not on filedocumented in this encounter"
--- OUTSIDE RECORDS SUMMARY | ~2020-03-18 | XMS | Encounter Summary ---
Demographics + + + | Address | [address] | | | [place] [address] | + + + | Home Phone | | + + + | Preferred Language | Unknown | + + + | Marital Status | | + + + | Advent Affiliation | Unknown | + + + | Race | White | + + + | Ethnic Group | Not or | + + + Author + + + | Author | [facility] | | | and [place] | + + + | Organization | [facility] | [...] Team Providers + +------+ + | Care Computer Numerical Control Grinder Name | Role | Phone | + [...] | +--------+ + + + + | 01/05/ | Hospital | [facility] | Hussein Padron | Thoracic | | 2018 | Encounter | MED CTR XRAY [address] | [address] | radiculopathy | | | | [place] | [facility] [place] | | | | | [place] [address] | [id number] | | | | | [phone] | | | | | | | Staff Research AssociateTisha | | | | | | neli quinteros | | +--------+ + + + + [...] +---------+ + + | Blood Pressure | 138/78 | 01/05/2018 3:19 PM | | | | | PDT | | + +---------+ + + | Pulse | - | - | | + [...] tablet under | 25 | 1 | // | | | (NITROSTAT) 0.4 mg | [...] | FL EPIDURAL STEROID | Routin | 01/05/2018 | Thoracic | Results for this | | INJ CERVICAL | e | 3:19 PM | radiculopathy | procedure are in the | | THORACIC | | PDT | | results section. | | INTERLAMINAR | | | | | + +--------+ + + + documented in this encounter Results FL MARY Cervical Thoracic Interlaminar (01/05/2018 3:19 PM PDT) + + | Specimen | + + | | + + + + + | Narrative | Performed At | + + + | | [facility] | | 01/05/2018THORACIC INTERLAMINAR EPIDURAL STEROID INJECTION CLINICAL | | | HISTORY: ICD-10 CODE M54.14 THORACIC RADICULOPATHY Jose Raul Palafox | | | presents to the fluoroscopy suite for a fluoroscopically-guided T2-T3 | | | interlaminar epidural steroid injection, right of midline, as part of | | | conservative management for chronic pain with thoracic radiculopathy | | | and degenerative disc disease. After informed consent was obtained, | | | the patient lay in the prone position on the fluoroscopy table. The | | | area was identified under fluoroscopic guidance. The area was prepped | | | and draped in sterile fashion. A 25-gauge, 1.5-inch needle was | | | inserted into this region and approximately 3 mL of buffered 1% | | | lidocaine was infused. Then a 22-gauge epidural needle was advanced | | | into the epidural space at the T2-T3 level. Confirmation into the | | | epidural space was obtained with loss of resistance, as well as | | | infusion of approximately 1 mL of Isovue contrast which showed | | | epidural flow. Then, a combination of 3 mL of normal saline and 1 mL | | | of 10 mg/mL dexamathasone was infused. The patient tolerated the | | | procedure well without complications. Pre- and post-procedure blood | | | pressures were stable. The patient was given verbal as well as written | | | followup instructions. Prior to the start of the procedure, the | | | following were performed and verified, including correct patient | | | [...] | | | 1% Lidocaine | | |I personally performed the procedure above. | | | | | |Estimated blood loss: Minimal | | |Complications: None | | |Findings: As expected | | |Anesthesia: Local 1% Lidocaine | | | | | | | [...] dexamethasone (PF) 10 mg/mL | Given | 01/06/20 | 10 mg | | | | injection 10 mg 10 mg, Other, | | 18 3:31 | | | | | ONCE, [facility] 01/05/18 at 1545, For 1 | | PM PDT | | | | | dose | | | | | | + +--------+ +-------+------+------+ +---+---+ | | | +---+---+ + +-------+ +-------+---+---+ | iohexol (OMNIPAQUE 300) 300 | Given | 01/06/20 | 4 mLs | | | | mg/mL injection 4 mL 4 mL, | | 18 3:28 | | | | | Other, ONCE, [facility] 01/05/18 at 1545, | | PM PDT | | | | | For 1 dose | | | | | | + +-------+ +-------+---+---+ +---+---+ | | | +---+---+ + +-------+ +-------+---+ + | lidocaine buffered 1.3% | Given | 01/06/20 | 3 mLs | | Other | | injection 3 mL 3 mL, | | 18 3:26 | | | (Comment | | Intradermal, ONCE, [facility] 01/05/18 at | | PM PDT | | | ) | | 1545, For 1 dose | | | | | | + +-------+ +-------+---+ + +---+---+ | | | +---+---+ documented in this encounter"
--- OUTSIDE RECORDS SUMMARY | ~2020-03-18 | XMS | Encounter Summary ---
Demographics + + + | Address | [address] | | | [place] [address] | + + + | Home Phone [...] + + + | Author | [facility] | | | and [place] | + + + | Organization | [facility] | | [...] Providers + +------+ + | Care Director Of Outside Sales Name | Role | Phone | + [...] + + | 01/05/ | Office | [facility] | Latonia Olson, | ST elevation | | 2017 | Visit | [facility] | MD [address] | myocardial | | | | REHABILITATION [address] | [place] | infarction involving | | | | [address] | [address] | right coronary | | | | [place] [address] | | artery (HCC) | | | | [phone] | Pricilla Zaldivar RN | | +--------+---------+ + + + Social [...] encounter Progress Notes Pricilla Zaldivar RN - 01/05/2017 10:00 AM PDT [facility] [address] [facility] [id number] Cardiac Rehab Evaluation Date: 01/05/2017 Patient Information Patient Name: Jose Raul Palafox Date of : 1960 Age: 56 y.o. Referring Provider: Latonia Olson MD Encounter Diagnoses Code Name Primary? I21.11 ST elevation myocardial infarction involving right coronary artery (HCC) Mr. Palafox is a 55 y.o. male with a history of hyperlipidemia, severe COPD, current smoker who experienced chest pain at the [facility] and was found to have STEMI on 11/03/16. His RCA was successfully stented by Dr. Olson. On 01/03/17 he was readmitted with unstable angina and received another stent. Since that time, he has been chest pain free. He arrives on O2 @ 2L/cont. He has an order for continuous supplemental oxygen since his ce rvical spine surgery. Today, he walked briskly for 6 minutes on room air maintaining SpO2 at 96-98%. A copy of the walk test was sent to Dr. Gomez at the [facility]. Cardiac Rehab Phase II Reema tment Plan Risk factors: smoking, belly weight, hyperlipidemia, inactivity due to pain issues Fall Ri sk Assessment Fall Risk: 2 or more falls in the past year or concern for a fall?: No If yes, reason for fall risk:n/a Assistive device: None I nterventions Designate Fall Risk by placing a star on exercise folder Assess and encourage fall risk reduction behaviors Manage and monitor hypotension if applicable Optimize home safety Refer to PT if applicable Abuse Assessment Do you feel safe in your current relationship or home? Yes Have you been hit/hurt or threatened by someone close to you? No Possible clinical concerns noted by clinician? No Action taken: No concerns Exercise LVEF: 61% angiogram Risk stratification category: Low risk Initial exercise/activity assessment: Date: 01/05/17 Mode: Walk test Duration: 6 min RPE: 4/ 10 METs=3:13 30 Day exercise assessment: Date: Mode: Duration: RPE: /10 60 Day exercise assessment: Date: Mode: Duration: RPE: /10 Discharge exercise assessment: Date: Mode: Duration: RPE: /10 Sessio n Prescription Modes: Recumbent elliptical, Ergometer Frequency: 3 X week Duration: 10-20 minutes Progression: Increase duration and/or intensity to maintain THR and/or RPE 3-4/10 THR: Rest +30 bpm Resistance training: Yes Precautions: peripheral neuropathy, thoracic spine pain. Home E xercise Modes: Walk Frequency: 5 X week Duration: 30 minutes Progression: Increase duration and/or intensity of exercise to maintain at least 30 min of cardio exercise, 5 days per week and RPE 3-4/10 with warm up and cool down. Interventio ns and Education Initial orientation to cardiac rehab as listed below, Completed Date: 12/23 11/08 - Equipment orientation -Warm up and cool down -Rating of Perceived Exertion- Modified Brendan Scale -Exercise Safety -Signs and Symptoms to report -Individualized exercise prescription Education: Benefits of exercise, Health consequences of inactivity, Exercise goal of 30 min utes aerobic most days of the week, Importance of hydration, Target heart rate, Determining pulse, effects of beta-blockers on heart rate and dehydrating effects of diuretics if applic able. Realistic goal setting. Plan at discharge. Comprehension assessment: Through conversation they appear to have good comprehension. Elton: Living Well with Heart Disease book Date received: 01/05/17 + COPD book Ta rget Goal(s) Aerobic- moderate intensity activity 30 to 60 minutes per day for at least 5 days per week Supplementing aerobic activity with an increase in daily lifestyle activities Resistance training at least two days per week Progression/Pro shruthi toward Goals Date: 01/05/17 Notes: He does have thoracic pain, which limits his walking Nutr ition and Weight Assessment: Height: 6' 2" Admission Weight: 219# 30 Day We ight: BMI: 60 Day Weight: D ischarge Weight: Weight Goal: Lose 1-2# per week Waist Circumference: D/C Circum ference: Diet Assessment Initial Rate Your Plate Score: Discharge Rate Your Plate Score: Special diet? No Alcohol? No Inte rvention and Education Points listed below- Date Completed: 01/05/17 -Goals of BMI, Waist circumference - Encourage weight reduction and/or maintenance through physical activity/ structured exe rcise, caloric intake, and/ or behavioral management, goal setting -Heart Healthy Dietary Education Date: 01/05/17 -Referral to Lap Machine Operator: Date: -DVD: Healthy Eating For Life Date: Target Goal(s) -Patient weight has maintained or improved toward BMI <25 -Waist circumference <35 inches for women < 40 inches for men -Diet low in saturated fats, simple carbs, high in fruits, vegetables and whole grains Progression/ Progress toward Goals Date: 01/05/17 Notes: His is supportive and has also changed her diet to h eart healthy. Hypertension History of hypertension: No Treatment: On medication Initial Resting BP: 112/60 Peak Exercise BP: 158/88 30 Day Resting BP: 30 Day Exercise BP: 60 Day Resting BP: 60 Day Exercise BP: Discharge BP: Discharge Exercise BP: Inte rventions and Education Points listed below- Date Completed: -Understanding blood pressure and goal blood pressure -BP medictions - Lifestyle modifications: weight control, increased physical activity, alcohol moderation, sodium reduction, emphasis on increased fruit, vegetable and low fat dairy consumption Individual cardiac risk factors reviewed Progress toward Goals: Date: Target Goal Blood pressure Goal: Progression /Progress toward Goals Date: 01/05/17 Notes: His BP was "fine" so he stopped taking metoprolol. After education, he agrees to take it again. Dyslipidemia History of Dyslipidemia: Yes Treatment: On medication Most recent lipid panel: [id number] TRIG 197 HDL 34 LDL 106 Interven tions and Education Points listed below- Date Completed: 01/05/17 -Advocate for cholesterol medication if appropriate -Encourage lifestyle changes including regular lipid monitoring to achieve goals, include education on the importance of physical activity and weight management, dietary reduction o f saturated fats(<7% of total calories,) trans fats (<1% of total calories,) and cholesterol (<200mg/day.) How to raise HDL through exercise and diet. Target Goal Total 170 LDL 70 HDL >40 Triglycerides <130 Progression/P rogress toward Goals Date: 01/05/17 Notes: Agrees to limit saturated fats. Agrees to regular exercis e. Chioma betes Mellitus History of diabetes: No Treatment: Last hemoglobin A1C: Value: Date: Interventions -Evaluate blood sugar pre- and post- exercise until stable. Date: Range: -Referral to Bilingual Manager Date: Education Points listed below- Date Completed: -Signs and symptoms of hypoglycemia -Impact of diabetes on cardiovascular risk, including understanding the importance of lifes tyle modifications, including physical activity, weight management, blood pressure control a nd lipid management Date completed: Diabetic diet instruction Date completed: Target Goals -Stable pre and post exercise glucoscans -HgbA1C: <7% Progression/ Progress toward Goals Date: Notes: Tobacco Use Active tobacco user: Yes Type of tobacco: None Current amount: 1 ppd Stage of change: Contemplation Willing to set Quit Date: 01/26/17 Barriers/Challenges: Stress = relapse Inter vention and Education Points listed below- Date Completed: 01/05/17 -Assist patient to set a quit date and provide encouragement -Educate on benefits of complete cessation, tobacco triggers, tips for success, relapse pre vention, no smoking >90 minutes before exercise Target Goal Complete smoking cessation Progression/P rogress toward Goals Date: 01/05/17 Notes: Tenatively agrees to quit date. Successfully quit for 11 months in the past. agrees to quit too. Psychosocial Depression: No Initial PHQ-9: 2 30 Day PHQ-9: 90 Day PHQ-9 Discharge PHQ-9: Support systems: Notes: tired and feels down on some days. Inter vention and Education Points listed below- Date Completed: 01/05/17 -Assess presence or absence of depression using a validated screening tool on admission and every 30 days or prn if depression positive on admission or if set backs or changes in affe ct -Educate Stress management techniques, Deep breathing, progressive relaxation, encourage re gular execise -Educate and medical management -Notify PCP of depression symptoms or high PHQ-9 score. Date: Target Goal Mood improvement as indicated by broadened affect, increased interaction, reassesses with i mproved PHQ-9, Maximized coping skills, utilizing support system Progression/Progress to ramos Goals Date: Notes: Patients stated Goals for Cardiac Rehab: To get back into regular exercise. Quit smoking. Electronically signed by: Pricilla Zaldivar RN, 01/05/2017 13:32 Patient Name: Jose Raul Palafox/: 1960/ signed by Latonia Olson MD at 01/06/2017 8:53 PM PDTdocumented in this encounter Plan of [...]
--- OUTSIDE RECORDS SUMMARY | ~2020-03-18 | XMS | Encounter Summary ---
Demographics + + + | Address | [address] | | | [place] [address] | + + + | Home Phone | | + + + | Preferred Language | Unknown | + + + | Marital Status | | + + + | Sikh Affiliation | Unknown | + + + | Race | White | + + + | Ethnic Group | Not or | + + + Author + + + | Author | [facility] | | | and [place] | + + + | Organization | [facility] | | | [...] Providers + +------+ + | Care Manager Work Name | Role | Phone | + +------+ + PCP | Unavailable | + +------+ + Encounter Details +--------+ + + + + | Date | Type | Department | Care Team | Description | +--------+ + + + + | 01/02/ | [facility] | [facility] | Miiram De León | | | 2009 | Encounter | [facility] | MD [address] | | | | | [address] | [facility] [place], | | | | | [place] | [place] [address] | | | | | [address] | [phone] | | | | | [phone] | | | +--------+ + + + [...]
--- OUTSIDE RECORDS SUMMARY | ~2020-03-18 | XMS | Encounter Summary ---
Demographics + + + | Address | [address] | | | [place] [address] | + + + | Home Phone [...] + + + | Author | [facility] | | | and [place] | + + + | Organization | [facility] | | [...] Team Providers + +------+ + | Care Textile Colorist Formulator Name | Role | Phone | + +------+ + | Gary Gomez MD | PCP | | + +------+ + Encounter Details +--------+ + + + + | Date | Type | Department | Care Team | Description | +--------+ + + + + | 12/30/ | Orders Only | [facility] | Jarred, Aleksander A, | Status post cervical | | 2015 | | NEUROSURGERY [address] | DO [address] | spinal fusion | | | | [address] | [address] [place], [place] | (Primary Dx) | | | | [place] | [address] | | | | | [address] | | | | | | [phone] | | | +--------+ + + + [...] as of this encounter Plan of Treatment + +---------+--------+ + + | Name | Type | Priori | Associated Diagnoses | Order Schedule | | | | ty | | | + +---------+--------+ + + | XR CERVICAL SPINE 2 | Imaging | Routin | Status post | Expected: | | OR 3 VIEWS | | e | cervical spinal | 02/10/2015, Expires: | | | | | fusion | 12/31/2015 | + +---------+--------+ + + documented as of this encounter Visit Diagnoses + + | Diagnosis | + + | Status post cervical spinal fusion - Primary Arthrodesis status | + + documented in this encounter"
--- OUTSIDE RECORDS SUMMARY | ~2020-03-18 | XMS | Encounter Summary ---
Demographics + + + | Address | [address] | | | [place] [address] | + + + | Home Phone [...] Team Providers + +------+ + | Care Pharmacy Associate Name | Role | Phone | [...] Description | +--------+---------+ + + + | 11/03/ | Surgery | DARIELORSantosh [facility] | Latonia Gallardo, | CV Cor Angio | | 2017 | | MED CTR CV INTRA OP | MD [address] | | | | | [address] | [place] | | | | | [place] | [address] | | | | | [address] | | | | | | [phone] | | | +--------+---------+ + + + [...] + + + | Blood Pressure | - | - | | + + + + + | Pulse | - | [...] Weight | 105.2 kg (232 lb) | 11/03/2016 11:56 AM | | | [...] Jose Raul Maldonado, (1960) DATE OF ADMISSION: 11/03/2016 DATE [...] complain of chest pain while at the [facility]. He had a severe episode of chest pain last week that he thought was GI. He states he experienced some chest discomfort and vomited once the night before admission; today at abou t 10:00, he began to experience acute [...] per day. 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 T his was stented with RENETTA stents. He experienced a stent thrombosis and was returned to the mill labor supervisor. A stent was placed and IVUS was performed. He was given IC integrelin. He had n o further ischemia. He developed post MO pericarditis. He was started on colchicine and th is resolved. An echo was preformed and showed EF of 61%.(see below) He was continued on his home medications. He used his own inhalers which were not on our f ormulary. Given his stent thrombosis he was discharged on Brilinta 90 mg BID. [facility]. He was given a month of samples. We are waiting for response from the [facility]. Condition at discharge: Pain free. Atorvastatin will be held for a week and then started due to possible interaction with col chicine. Colchicine will be given for a week for post MO pericarditis. HOSPITAL PROBLEMS: Principal Problem: ST elevation [...] was performed in multiple views using 5 Colombian JL 3.5 diagnostic and a JR4 guide. . A 5 dominican pigtail catheter was advanced into the l [...] time: 1152. Moderate sedation stop time: 1231. Latonia Garza ms, MD, reviewed the patient's pre-sedation assessment [...] stenosis and no thrombus CONCLUSIONS: 1. Inferior MO 100% RCA - hypercoagulable state and thrombosis [...] of heart sac) For one week--start on 414 PM, end on 11/12 AM Take 1 [...] tablet by mouth 2 times daily. aka: DIANA Changed Medications Details busPIRone 15 mg tablet [...] 2 week s Call if any problems [phone] AttachmentsThe following attachments cannot be sent through Care Everywhere.AFTER PERCUTANE OUS CORONARY INTERVENTION (PCI) EXERCISING SAFELY ([place])STENTS, CORONARY (SA[place]AN)docmeliza douglas in this encounter Medications at Time of [...] as of this encounter Progress Notes Shannan Justin PharmBrian - 11/05/2016 11:42 AM PDTJose Raul Maldonado was admitted for STEMI and discharged [...] providers and keep list current. Shannan Justin PHARMBrian 11/05/2016 11:42 Latonia Mays MD - 11/04/2016 4:16 PM PDT PATIENT NAME: Jose Raul Maldonado : 1960: AGE: 55 y.o. PRIMARY CARE: Tommy Gomez MD INPATIENT FOLLOW UP VISIT Date of Service: 11/04/2016 HISTORY OF PRESENT ILLNESS: Jose Raul Maldonado is a 55 y.o. male with a history of STEMI and stent thrombosis. He is b eivikram seen today for follow up. He is feeling well no significant pain. He states that the pain he had previously last wee k was worse than the pain from his MO MEDICAL, SURGICAL, AND PERSONAL HISTORY Past Medical, [...] Latonia Gallardo MD 81 mg at 11/04/16 08 atorvaSTATin (LIPITOR) tablet 80 mg 80 mg Oral Nightly Latonia Gallardo MD 80 mg at 11/03/16 225 bisacodyl (DULCOLAX) suppository 10 mg 10 mg [...] excellent Electronically signed by: Latonia Gallardo MD [facility] 11/04/2016 Portions of this chart may have been created with SaveUp voice recognition software. Occasi onal wrong-word or sound-alike substitutions may have occurred due to the inherent cobos itations of voice recognition software. Please read the chart carefully and recognize, using context, where these substitutions have occurred. hannan Justin, Adenike rmD - 11/04/2016 2:51 PM PDT PHARMACY SERVICES: ADMISSION MEDICATION REVIEW Jose Raul Maldonado is a 55 y.o. male admitted [...] [] Doctor's office: [x] Pharmacy list names: [facility] [] [facility] SWIMMING POOL SERVICEPERSON (Prescription Monitoring Program) [x] [facility] [] Care Everywhere [] [...] performed and electronically signed by Patrizia Kan, Chorus Dancer 7 13:32 Reviewed by Shannan Justin PHARMD 11/04/2016 14:50 Latonia Mays MD - 11/03/2016 10:22 PM PDT PATIENT NAME: Jose Raul Maldonado : 1960: AGE: 55 y.o. PRIMARY CARE: Tommy Gomez MD INPATIENT FOLLOW UP VISIT Date of Service: 11/03/2016 HISTORY OF PRESENT ILLNESS: Jose Raul Maldonado is a 55 y.o. male with [...] BID Latonia Gallardo MD 20 mg at 2048 fentaNYL (PF) injection 25-50 mcg 25-50 [...] Latonia Haro ms, MD 175 mcg at 11/03/16 175 LORazepam (ATIVAN) tablet 1-2 mg 1-2 mg [...] 180 mg 180 mg Oral Once Ryan Petersen MD 180 mg at 0 11/03/16 1542 ticagrelor (BRILINTA) tablet 90 mg 90 mg [...] 48.5 11/03/2016 PLT 315 11/03/2016 ASSESSMENT: Post MO pericarditis STEMI today - no ECG changes now bronchospasm PLAN: Colchicine Cut back on narcotics as they are not helping and he may have further complications from na rcotics themselves (breathing) Echo in am Increase the bronchodilators Insomnia has been a problem - safe medication is melatonin Continue low dose ativan Electronically signed by: Latonia Gallardo MD [facility] 11/03/2016 Portions of this chart may have been created with SaveUp voice recognition software. Occasi onal wrong-word or [...] om the original. Admission H&P Referring Provider: [facility] Primary Care: Dr. Gomez Primary Geriatric Social Work Professor: Dr. Gallardo Reason for Admission: Chest pain and EKG with ST elevation 11/03/2016 Jose Raul Maldonado is a 55 y.o. male admitted today s/p cardiac catheterization. History of Present Illness: Bill was brought by ambulance to the ED after he began to complain of chest pain while at the [facility]. He states he experienced some chest discomfort [...] per day. Bill was taken to the mill labor supervisor where his STEMI required stent thrombosis of [...] consider inferolateral injury or acute infarct ACUTE MO / STEMI Consider right ventricular involvement in acute inferior infarct Abnormal ECG No previous ECGs available Confirmed by LATONIA GALLARDO MD ([id number]) on 11/03/2016 4:10:14 PM Comprehensive Metabolic Panel [...] Inferior leads Confirmed by LATONIA GALLARDO MD ([id number]) on 11/03/2016 4:10:37 PM Impression/Plan: 1. STEMI requiring stents. Complicated by thrombosis of the RCA. DESvstents 2. Anxiety 3. Chest pain Plan: 1. Admit to CCU for post MO monitoring with telemetry for arrhythmia and post MO mechanical complications Trend cardiac biomarkers for peak [...] note might be different from the original. Jose Raul Maldonado is a 55 y.o. male patient. [...] verify the correct chao ent, procedure, equipment, logistics support and site/side marked as required. Preparation: Patient [...] 11/03/2016 PRIMARY CARE PROVIDER: Tommy Gomez MD ASSEMBLER WET WASH: Dr. Latonia Gallardo MD, [facility], [facility] PRE-PROCEDURE DIAGNOSIS: STEMI POST-PROCEDURE DIAGNOSIS: same [...] was performed in multiple views using 5 Colombian JL 3.5 d iagnostic and a JR4 guide. . A 5 dominican pigtail catheter was advanced into the left [...] 1152. Moderate sedation stop time: 1231. ILatonia MD, reviewed the patient's pre-sedation assessment [...] stenosis and no thrombus CONCLUSIONS: 1. Inferior MO 100% RCA - hypercoagulable state and thrombosis [...] to Effient given thrombosis Latonia Gallardo MD, [facility], [facility] DATE/TIME: 11/03/2016 15:33 11/03/2016 15:33 Latonia Gallardo 11/03/2016 documented in this e ncounter ED Notes Ryan Petersen MD - 11/03/2016 11:25 AM PDTFormatting of this note might be different fr om the original. [facility] Jose Raul Maldonado Emergency Department Encounter Note [address] [place] [id number] PCP:Tommy Gomez MD [phone] CHIEF COMPLAINT: Chief Complaint Patient presents with Chest Pain present off and on for one week, worsening today and especially over the last 45 minutes ED Room: [facility] * ED Triage Notes Kierra Bhat RN 11/03/2016 11:52 Pt sent from [facility] with severe chest pain, starting approx half hour ago HPI Jose Raul Maldonado is a 55 y.o. male who presents to the Emergency Department with chest pa in and pressure ongoing for the last 45 minutes. Patient arrives VERY anxious and is hyperv entilating and crying and is breathing fast complaining of tingling around his mouth and in his fingers. He says he was at the [facility] and had an appointment but never [...] Past Surgical History Procedure Laterality Date Cholecystectomy 2011 Rotator cuff repair Left 1995 Knee arthroscopy Right Thumb surgery Left 1986 attachment Ulnar tunnel release Left 1995 Finger fracture surgery Left 2003 middle finger crush injury; tip replacement Cervical spine surgery N/A 01/07/2015 Procedure: C3-4, C4-5, C5-6, C6-7, Anterior Cervical Discectomy w/ Fusion and Plating, Po sterior Fusion at C3-4, C4-5, C5-6, C6-7, C7-T1, and T1-2; Surgeon: Aleksander Stern DO; Lo cation: SAM MAIN OR CURRENT MEDICATIONS Current Discharge Medication [...] 2016 at 11:17 Rate: 93 Rhythm: NSR UT interval: Normal QRS: Normal ST segments: Nonspecific changes T-waves: Normal Comments: No acute STEMI Emergency Department EKG interpretation: November 03, 2016 at 11:38 Rate: 62 Rhythm: NSR UT interval: Normal QRS: Normal ST segments: STEMI [...] were reviewed along with EMS notes and assisted record s if applicable. (See chart for [...] my medical care for this critically ill/injured chaoe nt. This case involved decision making of [...] and documentation and directing patient to the mill labor supervisor . Please see the ED course for [...] has been activated at this time 11:42. [facility] is here at bedside 11:47. Patient [...] this chart may have been created with SaveUp voice recognition software. Occasi onal wrong-word or [...] 11/08/16 2. Prevent bronchospasm by 11/08/16 3. Jose Raul will have breath sounds will remain consistent with baseline function throughout s cheyanne and reverse airway bronchospasm when indicated. Reevaluate goal by 11/08/16. 4. Jose Raul will have his Chest pain managed to a 4 or less through 5 Jose Raul and his spouse will have understanding of his dx and tx by 11/05/2016 STRATEGY TO ACHIEVE GOALS: - Oxygen to keep saturation >92% - Aerosolized medications as ordered - Perform airway clearance using vibratory PEP therapy. Assess chest pain and treat with medications, oxygen, rest, re-assess for effect. ECG for s uspected angina. labor economics teacher education, project red education. RESTRAINT-RELATED GOALS: STRATEGIES [...] 11/08/16 2. Prevent bronchospasm by 11/08/16 3. Jose Raul will have breath sounds will remain consistent with baseline function throughout s cheyanne and reverse airway bronchospasm when indicated. Reevaluate goal by 11/08/16. 4. Jose Raul will have his Chest pain managed to a 4 or less through 5 Jose Raul and his spouse will have understanding of his dx and tx by 11/05/2016 STRATEGY TO ACHIEVE GOALS: - Oxygen to keep saturation >92% - Aerosolized medications as ordered - Perform airway clearance using vibratory PEP therapy. Assess chest pain and treat with medications, oxygen, rest, re-assess for effect. ECG for s uspected angina. labor economics teacher education, project red education. RESTRAINT-RELATED GOALS: STRATEGIES TO ACHIEVE RESTRAINT GOALS: Outcome: Improving Goal Evaluation: Stable overnight, denied pain. lan of Care - Vicenta Hoff RN - 11/04/2016 6:08 PM PDTProblem: Patient Care Overview (Adult) Goal: Care Team Goals & Evaluation PROBLEM-RELATED GOALS: 1. Prevent hypoxia by 11/08/16 2. Prevent bronchospasm by 11/08/16 3. Jose Raul will have breath sounds will remain consistent with baseline function throughout s cheyanne and reverse airway bronchospasm when indicated. Reevaluate goal by 11/08/16. 4. Jose Raul will have his Chest pain managed to a 4 or less through 5 Jose Raul and his spouse will have understanding of his dx and tx by 11/05/2016 STRATEGY TO ACHIEVE GOALS: - Oxygen to keep saturation >92% - Aerosolized medications as ordered - Perform airway clearance using vibratory PEP therapy. Assess chest pain and treat with medications, oxygen, rest, re-assess for effect. ECG for s uspected angina. labor economics teacher education, project red education. RESTRAINT-RELATED GOALS: STRATEGIES TO ACHIEVE RESTRAINT GOALS: Outcome: Improving Goal Evaluation: Jose Raul has been feeling better and better as [...] morning and now are just diminished posteriorly. labor economics teacher cam e and did the mill labor supervisor education and the project Red heart attack education was completed. lan of Care - Eric contreras, Damaris Aguayo, PRODUCTION ENGINEER TRACK - 11/04/2016 3:16 PM PDTFormatting of this note might be different from th e original. Problem: Patient Care Overview (Adult) Goal: Care Team Goals & Evaluation PROBLEM-RELATED GOALS: 1. Prevent hypoxia by 11/08/16 2. Prevent bronchospasm by 11/08/16 3. Jose Raul will have breath sounds will remain consistent [...] 3 12-14 4 15+ 5 lan of [facility] - Ifeoma Fernandez RN - 11/04/2016 1:06 PM PDTProblem: Discharge Planning Goal: Patient will be discharged in a safe manner Outcome: Improving Met with Jose Raul to discuss discharge plans, he expresses feeling much better today. He reports he lives with his in a one level home with three steps to enter. He is independent with his ADL's, he does not use any DME or CPAP at home. He is on 2L/O2 continuously, he gets this through [employer]. His PCP is Dr. Gomez at the [facility] and he also uses [facility]. He declines HH services at this time, he states he will be fine. His family will transport him when he is medically stable for discharge. Electronically signed by: Ifeoma Teran RN 11/04/2016 13:06 Called the [facility] pharmacy per caterina Lamar RN, to inquire about insurance coverage for [...] Ifeoma Teran RN 11/04/2016 15:58 lan of [facility] - Guanako Walters Ba, Chaplain - 11/04/2016 11:00 AM PDTProblem: Patient Care Overview (Adult) Goal: Care Team Goals & Evaluation PROBLEM-RELATED GOALS: 1. Prevent hypoxia by 11/08/16 2. Prevent bronchospasm by 11/08/16 3. Jose Raul will have breath sounds will remain consistent with baseline function throughout s cheyanne and reverse airway bronchospasm when indicated. Reevaluate goal by 11/08/16. STRATEGY TO ACHIEVE GOALS: - Oxygen to keep saturation >92% - Aerosolized medications as ordered - Perform airway clearance using vibratory PEP therapy. RESTRAINT-RELATED GOALS: STRATEGIES TO ACHIEVE RESTRAINT GOALS: Spiritual Care Jose Raul Maldonado is a 55 y.o. male who is admitted for Diaphoresis [R61] Anxiety attack [F41.0] ST elevation myocardial infarction (STEMI) of inferior wall (HCC) [I21.19] Chest pain in adult [R07.9] This is my first visit with the patient. Jose Raul Maldonado was awake, alert, sitting in a chair at bedside at the time of the visit. Spiritual Evaluation: [facility] in [place]. He is very enthusiastic in his carlos [...] spiritual care issues that arise, please contact supervisor dry cell assembly. lan of Elin Pierre RN - 11/04/2016 6:36 AM PDTProblem: Patient Care Overview (Adult) Goal: Care Team Goals & Evaluation PROBLEM-RELATED GOALS: 1. Prevent hypoxia by 11/08/16 2. Prevent bronchospasm by 11/08/16 3. Jos Eraul will have breath sounds will remain consistent [...] this AM. lan of Care - Leslie Dumont, HERBIE - 11/04/2016 5:02 AM PDT Problem: Patient Care Overview (Adult) Goal: Care Team Goals & Evaluation PROBLEM-RELATED GOALS: 1. Prevent hypoxia by 11/08/16 2. Prevent bronchospasm by 11/08/16 3. Jose Raul will have breath sounds will remain consistent with baseline function throughout s cheyanne and reverse airway bronchospasm when indicated. Reevaluate goal by 11/08/16. STRATEGY TO ACHIEVE GOALS: - Oxygen to keep saturation >92% - Aerosolized medications as ordered - Perform airway clearance using vibratory PEP therapy. RESTRAINT-RELATED GOALS: STRATEGIES TO ACHIEVE RESTRAINT GOALS: Outcome: Improving Goal Evaluation: Jose Raul is a current smoker. His breath sounds [...] 12-14 4 15+ 5 eICU Note - Elin Ramirez RN - 11/03/2016 11:19 [...] pulses 2+. lan of Care - Marisol Lombardi, PRODUCTION ENGINEER TRACK - 017 4:56 PM PDT Problem: Patient [...] 2 8-11 3 12-14 4 15+ 5 prenatal teacher score 7 Admitted with STEMI Home regimen [...] protocol D Triage Notes - Kierra Bhat, RN - 11/03/2016 11:45 AM PDTPt sent from [facility] with severe chest pain, st arting approx [...] + +--------+ + + + | EXTRA LAVENDER TOP | Routin | 11/05/2016 | | Results [...] | | | Lavender | | | [facility] | | | Top Tube | | [...] [address] | [place] | [phone] | | [facility] | | [address] | | | - LABORATORY | | [...] MD | | | | | | ([id number]) on 11/05/2016 | | | | | [...] [address] | [place] | [phone] | | [facility] | | [address] | | | - LABORATORY | | [...] Demographics Patient Name ERICA | | | OSGOOD Room Number 2 | | | BILL Patient Number [id number] Date of Study | | | 11/04/2016 Visit Number [id number] | | | Referring Physician LATONIA GALLARDO MD Number Date of | | | 1960 [employer]AK | | | MAX, | | | Age 55 year(s) | | | Interpreting LATONIA GALLARDO MD | | | Geriatric Social Work Professor Gender Male | | | Nurse | | | Stress Patient Observer Procedure Type of Study TTE procedure: ECHO [...] | | | EF | | | Keoymrurs16% Left Ventricle Diastolic Dimension: 5.44 cm | [...] Volume: 61.26 ml | | | EF Csxpwsbha16% | | | | | | Left [...] + | [facility], Elliott Results In - 11/04/2016 5:34 PM PDT Transthoracic Echocardiography Report | | (TTE) Demographics Patient Name ERICA RODRIGUEZ Room Number 452 | | BILL Patient Number [id number] Date of Study 11/04/2016 Visit Number | | [id number] Referring Physician LATONIA GALLARDO MD | | Number Date of 1960 [employer] Pun[employer] [place]AK [place], | | [place] Age 55 year(s) | | Interpreting LATONIA GALLARDO MD Geriatric Social Work Professor | | Gender Male Nurse Stress | [...] LA Volume: 61.26 ml | | EF Zxzklbbwf81% Left Ventricle Diastolic Dimension: 5.44 cm | [...] LA Volume: 61.26 ml | | EF Giwuacpoz22% | | | | Left Ventricle | [...] | | | | | | ANA [id number]) on | | | | | | [...] | | | | | mmol/L | [facility] | | | | | | MEDICAL | | | | | | CENTER - | | | | | | LABORATORY | | + + + + + + | K | 4.1 | 3.5 - 5.1 | [facility] | | | | | mmol/L | [facility] | | | | [...] | mL/min/1.73m2 | [facility] | | | [place] | RATE,ESTIMATED | | MEDICAL | | | | mL/min/1.50p1Gqqy than | | CENTER - | | [...] + + | [facility] | [address] | [place] | [phone] | | [facility] | | [address] | | | - LABORATORY | | | | + + + + + Lipid Panel (11/04/2016 4:31 AM PDT) + + + + + + | Component | Value | Ref Range | Performed | Pathologist | | | | | At | Signature | + + + + + + | Triglycerid | 197 (H) | 35 - 160 mg/dL | [facility] | | | es | | | [facility] | | | | | | MEDICAL | | | | | | CENTER - | | | | | | LABORATORY | | + + + + + + | Cholesterol | 179 | 150 - 200 mg/dL | [facility] | | | | [...] LDL, | 106 | <=130 mg/dL | [facility] | | | Calculated | | | [facility] | | | | | | [...] [address] | [place] | [phone] | | [facility] | | [address] | | | - LABORATORY | | | | + + + + + Magnesium (11/04/2016 4:31 AM PDT) + +-------+ + + + | Component | Value | Ref Range | Performed | Pathologist | | | | | At | Signature | + +-------+ + + + | Magnesium | 2.1 | 1.8 - 2.5 mg/dL | [facility] | | | | | | [facility] | | | | | | MEDICAL [...] + | [facility] | [address] | [place] | [phone] | | [facility] | | [address] | | | - LABORATORY | | | | + + + + + CK Total (11/04/2016 4:31 AM PDT) + +---------+ + + + | Component | Value | Ref Range | Performed | Pathologist | | | | | At | Signature | + +---------+ + + + | CK TOTAL | 914 (H) | 22 - 269 U/L | [facility] | | | | | | [facility] [...] ST. | [address] | [place] | [phone] | | [facility] | | [address] | | | - LABORATORY | | [...] + | [facility] | [address] | [place] | [phone] | | [facility] | | [address] | | | - LABORATORY | | | | + + + + + C-Reactive Protein (11/03/2016 10:49 PM PDT) + +-------+ + + + | Component | Value | Ref Range | Performed | Pathologist | | | | | At | Signature | + +-------+ + + + | CRP | 7.99 | <8.00 mg/L | [facility] | | | | | | ST. [...] [address] | [place] | [phone] | | [facility] | | [address] | | | - LABORATORY | | [...] | | | | | mmol/L | [facility] | | | | | | [...] ST. | [address] | [place] | [phone] | | [facility] | | [address] | | | - LABORATORY | | [...] by | | | | | | ANA SLAUGHTER MD ([id number]) | | | | | | on [...] + | [facility] | [address] | [place] | [phone] | | [facility] | | [address] | | | - LABORATORY | | [...] MD | | | | | | ([id number]) on 11/03/2016 | | | | | [...] Jewell | | | MD Whitney 11/05/2016 11:18Ralclifton Maldonado is a 55 y.o. male | [...] | | Cardiac ProcedureDate/Time: 11/03/2016 15:31Performed by: WHITNEY | | | LATONIA AAuthorized by: LATONIA [...] correct patient, | | | procedure, equipment, logistics support and site/side marked as | | | [...] INTERVENTION | | | REPORT PATIENT NAME: Jose Raul MaldonadoDATE OF : | | | 1960MEDICAL RECORD NUMBER: [id number] OF PROCEDURE: | | | 11/03/2016 | | | PRIMARY CARE PROVIDER: | | | JOS Win EXPERIMENTAL MECHANIC ELECTRICAL: Dr. Latonia Gallardo MD, [facility], | | | [facility] PRE-PROCEDURE DIAGNOSIS: [...] | performed in multiple views using 5 Colombian JL 3.5 diagnostic and a | | | JR4 guide. . A 5 dominican pigtail catheter was advanced into the | [...] sedation | | | stop time: 1231. ILatonia MD, reviewed the patient's | | | [...] | stenosis and no thrombus CONCLUSIONS:1. Inferior MO 100% RCA - | | | hypercoagulable [...] thrombosis Latonia | | | MD Whitney, [facility]: | | | 11/03/2016 15:334 15:33 Latonia [...] in | | |multiple views using 5 Colombian JL 3.5 diagnostic and a JR4 guide. | | | . A 5 dominican pigtail catheter was advanced into the left [...] Moderate sedation stop time: | | |1231. ILatonia MD, reviewed the patient's | | [...] | | |CONCLUSIONS: | | |1. Inferior MO 100% RCA - hypercoagulable state and thrombosis [...] | | | | |Latonia Gallardo MD, [facility], [facility] | | |[facility] | | |DATE/TIME: 11/03/2016 15:33 | [...] 285 (H) | 125 - 175 | [facility] | | | Clotting | | second(s) [...] + | [facility] [facility] | [address] | [place] | [phone] | | [facility] | | [address] | | | - LABORATORY | | [...] + | [facility] | [address] | [place] | [phone] | | [facility] | | [address] | | | - LABORATORY | | [...] + | [facility] | [address] | [place] | [phone] | | [facility] | | [id number] | | | - LABORATORY | | [...] (H) | 7 - 18 mg/dL | [facility] | | | | | [facility] | | | | | | MEDICAL | | | | | | CENTER - | | | | | | LABORATORY | | + + + + + + | Creatinine | 0.80 | 0.60 - 1.30 | [facility] | | | | | mg/dL | [facility] | | | | | | MEDICAL | | | | | | CENTER - | | | | | | LABORATORY | | + + + + + + | eGFR, | >60Comment: GLOMERULAR | >=60 | [facility] | | | non- | FILTRATION | mL/min/1.73m2 | [facility] | | | [place] | RATE,ESTIMATED | | MEDICAL | | | | mL/min/1.42l3Tvyf than | | CENTER - | | [...] | | Total | | | [facility] | | [...] [address] | [place] | [phone] | | [facility] | | [address] | | | - LABORATORY | | [...] | | | Source | | | [facility] | | | | | | [...] mL/min/1.73m2 | [facility] | | | [place] | | | MEDICAL | | | [...] [address] | [place] | [phone] | | [facility] | | [address] | | | - LABORATORY | | [...] ACUTE | | | | | | MO / STEMI | | | | | [...] MD | | | | | | ([id number]) on 11/03/2016 | | | | | [...] | 0.06 (H) | <0.06 ng/mL | [facility] | | | | | [...] [address] | [place] | [phone] | | [facility] | | [address] | | | - LABORATORY | | [...] | | Time | | seconds | [facility] | | | | [...] + | [facility] | [address] | [place] | [phone] | | [facility] | | [address] | | | - LABORATORY | | [...] | | | Cells | | | [facility] | | | | | | MEDICAL | | | | | | CENTER - | | | | | | LABORATORY | | + + + + + + | Red Blood | 5.06 | 4.30 - 5.70 | [facility] | | | Cells | | M/uL | [facility] | | | | | | MEDICAL | | | | | | CENTER - | | | | | | LABORATORY | | + + + + + + | Hemoglobin | 16.4 | 13.5 - 18.0 | [facility] | | | | | g/dL | [facility] | | | | [...] | | Monocytes | | K/uL | [facility] | [...] + + + + + | [facility] | [address] | [place] | [phone] | | [facility] | | [address] | | | - LABORATORY | | | | + + + + + documented in this encounter Visit Diagnoses Not on filedocumented in this encounter Administered Medications + +--------+ +---------+------+------+ | Medication Order | MAR | Action | Dose | Rate | Site | | | Action | Date | | | | + +--------+ +---------+------+------+ | eptifibatide 1.667 mg/mL with | Given | 11/04/19 | 18,936 | | | | NA Bicarb (INTEGRILIN) injection | | 17 2:05 | mcg | | | | ONCE PRN, Starting Tue11/03/16 | | PM PDT | | | | | at 1405, Intra-op | | | | | | + +--------+ +---------+------+------+ +---+---+ | | | +---+---+ + +-------+ +---------+---+---+ | fentaNYL (PF) injection ONCE | Given | 11/04/19 | 100 mcg | | | | PRN, Starting Tue11/03/16 at | | 17 2:49 | | | | | 1309, Intra-op | | PM PDT | | | | + +-------+ +---------+---+---+ +-------+ +--------+---+---+ | Given | 11/04/19 | 50 mcg | | | | | 17 2:00 | | | | | | PM PDT | | | | +-------+ +--------+---+---+ | Given | 11/04/19 | 50 mcg | | | | | 17 1:55 | | | | | | PM PDT | | | | +-------+ +--------+---+---+ +---+---+ | | | +---+---+ + +-------+ +--------+---+---+ | heparin 1,000 units/mL | Given | 11/04/19 | 3,000 | | | | injection ONCE PRN, Starting Wed | | 17 2:01 | Units | | | | 11/03/16 at 1324, Intra-op | | PM PDT | | | | + +-------+ +--------+---+---+ +-------+ +--------+---+---+ | Given | 11/04/19 | 8,000 | | | | | 17 1:24 | Units | | | | | PM PDT | | | | +-------+ +--------+---+---+ +---+---+ | | | +---+---+ + +-------+ +--------+---+---+ | iohexol (OMNIPAQUE 350) 350 | Given | 11/04/19 | 10 mLs | | | | mg/mL injection ONCE PRN, | | 17 2:52 | | | | | Starting Tue11/03/16 at 1428, | | PM PDT | | | | | Intra-op | | | | | | + +-------+ +--------+---+---+ +-------+ +--------+---+---+ | Given | 11/04/19 | 85 mLs | | | | | 17 2:28 | | | | | | PM PDT | | | | +-------+ +--------+---+---+ +---+---+ | | | +---+---+ + +-------+ +-------+---+ + | lidocaine buffered 1% injection | Given | 11/04/19 | 7 mLs | | Other | | ONCE PRN, Starting 11/03/16 | | 17 1:15 | | | (Comment | | at 1312, Intra-op | | PM PDT | | | ) | + +-------+ +-------+---+ + +-------+ +-------+---+ + | Given | 11/04/19 | 3 mLs | | Other | | | 17 1:12 | | | (Comment | | | PM PDT | | | ) | +-------+ +-------+---+ + +---+---+ | | | +---+---+ + +-------+ +--------+---+---+ | midazolam (VERSED) 1 mg/mL | Given | 11/04/19 | 0.5 mg | | | | injection ONCE PRN, Starting Wed | | 17 2:11 | | | | | 11/03/16 at 1310, Intra-op | | PM PDT | | | | + +-------+ +--------+---+---+ +-------+ +--------+---+---+ | Given | 11/04/19 | 0.5 mg | | | | | 17 2:00 | | | | | | PM PDT | | | | +-------+ +--------+---+---+ | Given | 11/04/19 | 1 mg | | | | | 17 1:15 | | | | | | PM PDT | | | | +-------+ +--------+---+---+ +---+---+ | | | +---+---+ + +-------+ +---------+---+---+ | niCARdipine in dextrose | Given | 11/04/19 | 200 mcg | | | | (CARDENE) 0.2 mg/ml syringe ONCE | | 17 1:39 | | | | | PRN, Starting 11/03/16 at | | PM PDT | | | | | 1338, Intra-op | | | | | | + +-------+ +---------+---+---+ +-------+ +---------+---+---+ | Given | 11/04/19 | 400 mcg | | | | | 17 1:38 | | | | | | PM PDT | | | | +-------+ +---------+---+---+ +---+---+ | | | +---+---+ + +-------+ +---------+---+---+ | nitroglycerin 100 mcg/mL | Given | 11/04/19 | 200 mcg | | | | syringe ONCE PRN, Starting Wed | | 17 2:01 | | | | | 11/03/16 at 1336, Intra-op | | PM PDT | | | | + +-------+ +---------+---+---+ +-------+ +---------+---+---+ | Given | 11/04/19 | 100 mcg | | | | | 17 1:36 | | | | | | PM PDT | | | | +-------+ +---------+---+---+ +---+---+ | | | +---+---+ + + + +---------+ +---+ | nitroglycerin in dextrose 100 | Rate/Dos | 11/04/19 | 20 | 12 mL/hr | | | mcg/mL infusion CONTINUOUS PRN, | e Change | 17 1:38 | mcg/min | | | | Starting 11/03/16 at 1315, | | PM PDT | | | | | Intra-op | | | | | | + + + +---------+ +---+ +---------+ +---------+---------+---+ | New Bag | 11/04/19 | 10 | 6 mL/hr | | | | 17 1:15 | mcg/min | | | | | PM PDT | | | | +---------+ +---------+---------+---+ +---+---+ | | | +---+---+ + + + +---------+---+---+ | sodium chloride 0.9% (NS) bolus | Restarte | 11/04/19 | 500 mLs | | | | Administer over 2 Hours, | d | 17 1:41 | | | | | CONTINUOUS PRN, Starting Wed | | PM PDT | | | | | 11/03/16 at 1320, Intra-op | | | | | | + + + +---------+---+---+ +---------+ +---------+---+---+ | New Bag | 11/04/19 | 500 mLs | | | | | 17 1:20 | | | | | | PM PDT | | | | +---------+ +---------+---+---+ +---+---+ | | | +---+---+ documented in this encounter
--- OUTSIDE RECORDS SUMMARY | ~2020-03-18 | XMS | Encounter Summary ---
Demographics + + + | Address | [address] | | | [place] [address] | + + + | Home Phone [...] Team Providers + +------+ + | Care Skip Load Driver Name | Role | Phone | + +------+ + | Gary Gomez MD | PCP | | + +------+ + Reason for Visit + +--------+ + | Reason | Onset | Comments | | | Date | | + +--------+ + | Results, Imaging | 07/07/ | | | | 2016 | | + +--------+ + Encounter Details +--------+ + + + + | Date | Type | Department | Care Team | Description | +--------+ + + + + | 07/07/ | Telephone | [facility] | Hussein Padron | Results, Imaging | | 2017 | | PHYSIATRY [address] | | | | [address] | [place] | | | | | [place] | [address] | | | | | [address] | | | | | | [phone] | | | +--------+ + + + [...] this encounter Miscellaneous Notes Telephone Encounter - Shannan Garay CMA - 07/11/2017 12:36 PM PSTUrgent referral submitted for office visit. Patient updated. 1 2:37 PM PSTTelephone Encounter - Shannan Garay CMA - 07/11/2017 10:04 AM PSTAny updates on g etting patient o/v approved? Thank you elephone Lucianao ralph - Hussein Padron MD - 07/11/2017 9:37 AM PSTPlease do try to get him in as soon as it is authorized. Cecil did come and talk to me and I'm happy to do what I can but it do es sound like a difficult case. Injections may not be an option as he is on Plavix for rece nt heart stents. Until I see him and get an update I don't have any new suggestions.Electro nically signed by Hussein Padron MD at 07/11/2017 9:39 AM PSTTelephone Encounter - Shannan Garay CMA - 07/07/2017 2:39 PM PSTDerek Emigdioa stopped by the office today requesting that we get patient in on an urgent basis. An MRI of the thoracic spine was ordered back in September 2016. Patient was supposed to come i n to office for results once we received auth for the follow up visit but unfortunately he w as never called back for an appointment. I offered patient a follow up for tomorrow with Dr Doss and was later told we would not have a n approval for office visit by then. Patient was then called and MRI results of the thoracic spine were relayed. Patient states he is unsure if injections would help since the neck inj ection did not provide relief. Patient would like to know if there are any other options. Appointment for tomorrow was cancelled until we are able to obtain authorization. Dr Doss do you have any further recommendations? documented in this encounter Plan of Treatment Not on filedocumented as of this encounter Visit Diagnoses Not on filedocumented in this encounter"
--- OUTSIDE RECORDS SUMMARY | ~2020-03-18 | XMS | Encounter Summary ---
Demographics + + + | Address | [address] | | | [place] [address] | + + + | Home Phone | | + + + | Preferred Language | Unknown | + + + | Marital Status | | + + + | Anglican Affiliation | Unknown | + + + | Race | White | + + + | Ethnic Group | Not or | + + + Author + + + | Author | [facility] | | | and [place] | + + + | Organization | [facility] | | | [...] Team Providers + +------+ + | Care Wheel Alignment Mechanic Name | Role | Phone | + +------+ + | Gary Gomez MD | PCP | | + +------+ + Reason for Visit +--------+--------+ + | Reason | Onset | Comments | | | Date | | +--------+--------+ + | Other | 09/04/ | | | | 2019 | | +--------+--------+ + Encounter Details +--------+ + + + + | Date | Type | Department | Care Team | Description | +--------+ + + + + | 09/04/ | Telephone | [facility] | Constantine Villagran, | Other | | 2018 | | [facility] | PT [address] | | | | | [address] | [place], [place] | | | | | [place], [place] | [address] | | | | | [address] | | | | | | [phone] | | | +--------+ + + + [...] this encounter Miscellaneous Notes Telephone Encounter - Lor Ellington Aide - 09/04/2018 6:48 AM PSTPatient called to critical access hospital visit on 09/04/18. Due to weather.Electronically signed by Anali Teresa at 2018 6:48 AM PSTdocumented in this encounter Plan of Treatment Not on filedocumented as of this encounter Visit Diagnoses Not on filedocumented in this encounter"
--- OUTSIDE RECORDS SUMMARY | ~2020-03-18 | XMS | Encounter Summary ---
Demographics + + + | Address | [address] | | | [place] [address] | + + + | Home Phone | | + + + | Preferred Language | Unknown | + + + | Marital Status | | + + + | Baptist Affiliation | Unknown | + + + | Race | White | + + + | Ethnic Group | Not or | + + + Author + + + | Author | [facility] | | | and [place] | + + + | Organization | [facility] | | | and [...] Team Providers + +------+ + | Care Home Care Physical Therapist Name | Role | Phone | + +------+ + PCP | Unavailable | + +------+ + Encounter Details +--------+ + + + + | Date | Type | Department | Care Team | Description | +--------+ + + + + | 07/02/ | Hospital | [facility] | | CHEST PAIN NOS | | 2002 | Encounter | [facility] [address] | | | | | | [place], [place] | | | | | | [address] | | | | | | [phone] | | | +--------+ + + + [...] | + + | Chest pain, unspecified | + + documented in this encounter"
--- OUTSIDE RECORDS SUMMARY | ~2020-03-18 | XMS | Encounter Summary ---
Demographics + + + | Address | [address] | | | [place] [address] | + + + | Home Phone [...] + + + | Author | [facility] | | | and [place] | + + + | Organization | [facility] | | | [...] Providers + +------+ + | Care Die Cutter Diamond Name | Role | Phone | + [...] | | is of spine | | [place] | | | | | with | | [phone] Phone: | | | | | radiculopath | | [phone] | | | | | y, lumbar | | Fax: | | | | | region Low | | [phone] | | | | | back pain, [...] | | | | | | [place] | | | | | | | [...] Description | +--------+---------+ + + + | 02/26/ | [facility] | [facility] | [place] | Right L2-L3, L3-L4, | | 2019 | | MED CTR OR INTRA OP | MD Olivier [address] | L4-L5 Decompressive | | | | [address] | [address] [place] | Laminectomy | | | | [place], [place] | [place] [address] | | | | | [address] | [phone] | | | | | [phone] | | | +--------+---------+ + + + [...] + + + | Blood Pressure | 119/70 | 02/26/2019 6:20 AM | | | | | PDT | | + + + + + | Pulse | 66 | 02/26/2019 6:20 AM | | | | | PDT | | + + + + + | Temperature | 36.2 C (97.2 F) | 02/26/2019 6:20 AM | | | | | PDT | | + + + + + | Respiratory Rate | 17 | 02/26/2019 6:20 AM | | | | | PDT | | + + + + + | Oxygen Saturation | 96% | 02/26/2019 6:20 AM | | | [...] 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 aka: ADVAIRERICAELA INHUB gabapentin 300 mg capsule Take 900 mg [...] cream Apply topically 2 times daily. aka: KENALOG Discontinued Medications HYDROcodone-acetaminophen 5-325 mg per tablet aka: NORCO Condition on Discharge: Stable Follow-Up Plans: Follow-up: 6 days. . Follow-up with primary care physician as needed. Diet: Resume home diet Activity: Continue to follow guidelines and precautions as previously discussed. Bracing: No brace is required OK to resume use of asa on 03/05/2019 Electronically signed by: Cecil Hensley, 02/28/2019 9:15 [facility] documented in thi s encounter Discharge Instructions [...] these visits. You may get emails from [facility] about your clinical results for the [...] guidance for your postoperative journey in the [facility] booklet that you were provided either in Spine Class or at the [facility]. Please use it as a guide [...] tablet by | 90 | 3 | 01/11/ | | | (EFFIENT) 10 mg TABS [...] Hensley PA-C - 02/28/2019 8:14 AM PDT [facility] NEUROSURGERY PROGRESS NOTE PATIENT NAME: Jose Raul [...] 2.5 mg 2.5 mg Nebulization RT Q4H [place] N Cecil Hensley PA-C albuterol 90 mcg/puff [...] 15 mg 15 mg Oral BID Cecil eHnsley PA-C 15 mg at 02/27 calcium carbonate [...] capsule 60 mg 60 mg Oral Nightly KAUSHAL WalshC 60 mg at 02/27/192009 enalaprilat (VASOTEC) injection 1.25 mg 1.25 mg Intravenous Q6H PRN Cecil Hensley PA-C famotidine (PEPCID) tablet 20 mg 20 mg Oral BID KAUSHAL WalshC 20 mg at 0801/10 famotidine (PEPCID) tablet 20 mg 20 mg Oral BID PRN Cecil Hensley PA-C gabapentin (NEURONTIN) capsule 900 mg 900 mg Oral TID Cecil Hensley PA-C 900 mg at 02/27/192008 guaiFENesin (MUCINEX) ER tablet 600 mg 600 mg Oral BID KAUSHAL WalshC 600 mg at 02/27/192010 ipratropium (ATROVENT) 500 mcg/2.5 mL nebulizer solution 500 mcg 500 mcg Nebulization RT Q6H KAUSHAL WalshC 500 mcg at 02/28/19 0411 isosorbide mononitrate (IMDUR) ER tablet 30 mg 30 mg Oral QAM KAUSHAL WalshC 30 mg at 02/27/19 0905 labetalol (TRANDATE) 5 mg/mL injection 10 mg 10 mg Intravenous Q10 Min PRN Cecil Frost Suc YUNIER ramirez-Antione lactulose liquid 30 mL 30 mL Oral [...] 1.5 mg 1.5 mg Oral Nightly Adele Okeefe, PharmD 1.5 mg at 2010 menthol (HALLS [...] Cecil Hensley PA-C 100 mg at 02/27/19 0905 montelukast (SINGULAIR) tablet 10 mg 10 mg Oral Daily Cecil Hensley PA-C 10 mg a t 02/27/19 0904 morphine injection 2-5 mg 2-5 mg Intravenous Q4H PRN Cecil Hensley PA-C 4 mg at 02/27/19 0318 naloxone (NARCAN) 0.4 mg/mL injection 0.04 mg 0.04 mg Intravenous PRN Adele Okeefe, PharmD nitroglycerin (NITROSTAT) SL tablet 0.4 mg 0.4 mg Sublingual Q5 Min PRN Cecil chowdhury PA-C ondansetron (ZOFRAN ODT) disintegrating tablet 4 mg 4 mg Oral Q6H PRN Cecil Hensley PA-C ondansetron (ZOFRAN) injection 4 mg 4 mg Intravenous Q6H PRN Cecil Hensley PA-C oxyCODONE (ROXICODONE) tablet 5-15 mg 5-15 mg Oral Q4H PRN Cecil Beala, PA-C 15 mg at 02/27/19 1902 pharmacy consult - pain Other Pharmacy Consult Cecil Hensley PA-C phenol (CHLORASEPTIC) spray 1-2 spray 1-2 spray Mouth/Throat Q3H PRN Cecil Hensley PA-C polyethylene glycol (MIRALAX) powder 17 g 17 g Oral Daily YUNIER Walsh-C prochlorperazine tablet 10 mg 10 mg Oral Q6H PRN YUNIER Walsh-C senna (SENOKOT) tablet 8.6 mg 8.6 mg Oral BID YUNIER Walsh-C 8.6 mg at 02/27 sodium chloride 0.9% (NS) infusion Intravenous Continuous YUNIER Walsh-C St opped at 02/27/19 0327 ALLERGIES: Allergies [...] has no apparent deficits with short or manager long term care memory. 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 DATE OF SERVICE: 02/27/2019 8:06 S: Patient is doing fairly god. He states his right [facility] but still symptomatic. Mostly on the top [...] 2.5 mg 2.5 mg Nebulization RT Q4H [place] N Cecil Hensley PA-C albuterol 90 mcg/puff [...] BID Cecil Hensley PA-C 15 mg at 08/05 /19 2017 calcium carbonate (TUMS) chewable tablet 1,000 mg [...] BID Cecil Hensley PA-C 20 mg at 0812/10 2018 famotidine (PEPCID) tablet 20 mg 20 mg Oral BID PRN Cecil Hensley PA-C gabapentin (NEURONTIN) capsule 900 mg 900 mg Oral TID Cecil Hensley PA-C 900 mg at 02/26/19 2018 guaiFENesin (MUCINEX) ER tablet 600 mg 600 mg Oral BID Cecil Hensley PA-C 600 mg at 02/26/19 2018 ipratropium (ATROVENT) 500 mcg/2.5 mL nebulizer solution 500 mcg 500 mcg Nebulization RT Q6H Cecil Hensley PA-C 500 mcg at 02/27/19 0350 isosorbide mononitrate [...] Cecil Hensley PA-C 1,500 mg at 02/27/19 0643 metoclopramide (REGLAN) 5 mg/mL injection 10 mg 10 mg Intravenous Q4H PRN Cecil jamil PA-C metoprolol tartrate (LOPRESSOR) tablet 100 mg 100 mg Oral BID Cecil Hensley PA-C 100 mg at 02/26/192016 montelukast (SINGULAIR) tablet 10 mg 10 mg [...] Cecil Hensley PA-C 15 mg at 02/27/19 0643 phenol (CHLORASEPTIC) spray 1-2 spray 1-2 spray Mouth/Throat Q3H PRN Cecil Frost Shellie PA-C polyethylene glycol (MIRALAX) powder 17 g 17 g Oral Daily Cecil Frost Shellie PA-C prochlorperazine tablet 10 mg 10 mg Oral Q6H PRN Cecil Frost YUNIER Hensley-C senna (SENOKOT) tablet 8.6 mg 8.6 mg Oral BID Cecil Frost Shellie PA-C 8.6 mg at 02/26 2018 sodium chloride 0.9% (NS) infusion Intravenous Continuous Cecil Frost YUNIER Hensley-C St opped at 02/27/19 0327 ALLERGIES: Allergies [...] 1850 ml Net 1322 ml GENERAL: Jose Raul Palafox is in [...] has no apparent deficits with short or manager long term care memory. 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 The [facility] and they are working with the patient to get the DME delivered to him. PLAN: Home, no further needs. Electronically signed by: JESSICA Rosas 02/28/2019 12: 30 lan of Care - Judi Alva RN - 02/28/2019 11:29 AM PDTAll goals adequate for discharge. Educated on incision care, follow up care and medication changes. Discharged home with . Baya lly signed by Judi Benson RN at 02/28/2019 11:30 AM PDTPlan of Bernadette Wharton Chaplain - 02/28/2019 10:40 AM PDT Spiritual Care Jose Raul Palafox is a 58 y.o. male who is admitted for Neurogenic claudication [M48.062] Osteoarthritis of spine with radiculopathy, lumbar region [M47.26] Low back pain, unspecified back pain laterality, unspecified chronicity, with sciatica pres ence unspecified [M54.5]. Mortgage Operations Manager visit was part of routine rounding. Spiritual Evaluation: The patient requested that the station mechanic follow-up with prayer before discharge today. The patient and his and bbkyld-fo-bxf welcomed prayer support before leaving. The patient also offered prayer. Spiritual Interventions: The station mechanic attended and offered prayer. Spiritual Outcomes: The [...] 2 liters continuously, 3 to 4 years [place]. Bill denies shortness of breath this am after working with PT, breath sounds are equal and diminished in bases otherwise clear, tolerating nebulizer treatment substitute for home reg rosetta, SpO2: 97 %(Denies SOB.) on 2(Decreased from 3 liters, states home regime is 2 liters co nt)liters/minute nasal cannula with humidification lan of Marlin Villalobos COTA - 02/28/2019 9:42 AM PDTFormatting of this note might be different from t eriberto original. Occupational Therapy Plan of Care Treatment [...] no further OT Equipment Recommendations: sock aide, veterinary medicine teacher, long handled shoe horn, 2 wheeled walker [...] set up only UB Dressing, Level of Preston: set up required Assistive Device: none UB Dressing Assess/Train, Position: sitting UB Dressing Impairments: decreased flexibility, ROM decreased, pain, impaired functional en durance/activity tolerance By report: set up only LB Dressing, Level of [place]: set up required Assistive Device: none LB Dressing Assess/Train, Position: sitting, standing LB Dressing Impairments: decreased flexibility, ROM decreased, pain He declined need for oreal care this am. Bed Mobility Pt completed bed mob getting back into bed Mod I this session. Assistive Device: bed rails Supine to Sit, Level of Preston: not tested Sit to Supine, Level of Preston: modified independent Safety Issues: decreased use of arms for pushing/pulling, decreased use of legs for bridgin g/pushing, impaired trunk control for bed mobility Impairments: decreased flexibility, ROM decreased, impaired balance, strength decreased, pa in, postural control impaired Transfers Declined OOB activity 2/2 just finishing P.T. OT Goal Review Date Most Recent Value STG Review Date 03/05/19 at 02/26/2019 1602 UB Dressing Goal Most Recent Value STG Status met at 02/28/2019 0942 STG [place] Level supervised at 02/26/2019 1602 LB Dressing Goal Most Recent Value STG Status met at 02/28/2019 0942 STG [place] Level supervised at 02/26/2019 1602 Toileting Goal Most Recent Value STG Status continued at 02/28/2019 0942 STG [place] Level supervised at 02/26/2019 1602 Toilet Transfer Goal Most Recent Value STG Status continued at 02/28/2019 0942 STG [place] Level supervised at 02/26/2019 1602 Tub/Shower Transfer Goal Most Recent Value Tub/Shower Type walk in shower stall at 02/26/2019 1602 STG Status continued at 02/28/2019 0942 STG [place] Level supervised at 02/26/2019 1602 Electronically signed by: DWAYNE Curtis, 02/28/2019 10:01 lan of Lupe Shmuel Samaniego, EMAIL MARKETING INTERN - 02/28/2019 9:24 AM PDTFormatting of this [...] posture d/t pain; mildly impulsive Level of Preston: modified independent Assistive Device: 2 wheeled walker (FWW) Distance (feet): 50 Gait Deviations: kortney decreased, double stance time increased, limb motion velocity decr eased, step length decreased, stride length decreased, stride width increased, txzjs-to-jfyo ce ratio decreased, eah-bw-guykx clearance decreased, weight-shifting ability decreased Safety Issues: [...] Handrail Location: left side (ascending) Level of Preston: modified independent Assistive Device: 1 rail Technique Used: step to step (ascending), step to step (descending) Safety Issues: weight-shifting ability decreased, balance decreased during turns Impairments: impaired balance, pain, decreased flexibility Transfers pt walker adjusted to proper height; cues at start for hand placement; pt demo'd carryover throughout rest of session Bed-Chair, Level of Preston: modified independent Chair-Bed, Level of Preston: modified independent Pwd-Djyxe-Pzu, Assistive Device: 2 wheeled walker (FWW) Sit-Stand, Level of Preston: modified independent Stand-Sit, Level of Preston: modified independent Ldb-Mrawy-Ihd, Assistive Device: 2 wheeled walker (FWW) Safety Issues: other (see comments), sequencing ability decreased, weight-shifting ability decreased Impairments: decreased flexibility, strength decreased, impaired balance, pain Bed Mobility v/c at start to slow down as pt is impulsive; Mod I to complete Assistive Device: bed rails Roll Left, Level of Preston: modified independent Roll Right, Level of Preston: modified independent Scoot/Bridge, Level of Preston: modified independent Supine to Sit, Level of Preston: modified independent Sit to Supine, Level of Preston: modified independent Safety Issues: decreased use of [...] STG Status met at 02/28/2019 0924 STG [place] Level modified independent at 02/26/2019 1425 STG Comments log roll technique at 02/26/2019 1425 Rnm-Qofva-Uxx Goal Most Recent Value STG Status met at 02/28/2019 0924 STG [place] Level modified independent at 02/26/2019 1425 STG Assistive Device 2 wheeled walker (FWW) at 02/26/2019 1425 Gait Goal Most Recent Value STG Status met at 02/28/2019 0924 STG [place] Level modified independent at 02/26/2019 1425 STG Assistive Device 2 wheeled walker (FWW) at 02/26/2019 1425 STG Distance (feet) 50 at 02/26/2019 1425 Stair Goal Most Recent Value STG Status met at 02/28/2019 0924 STG [place] Level modified independent at 02/26/2019 1425 STG Assistive Device 1 rail at 02/26/2019 1425 STG Number of Stairs 3 at 02/26/2019 1425 Additional Goal #1 PT Most Recent Value STG Status progressing at 02/28/2019 0924 STG Pt will verbalize understanding of spinal precautions and demonstrate adherence to pre cautions during all functional mobility. at 02/26/2019 1425 Electronically signed by: Shmuel Hanson PTA, 02/28/2019 11:31 lan of Lupe - Caroline Chatman, VESSEL ENGINEER - 02/28 5:22 AM PDTRalph oxygen saturation [...] no change since start of shift. Right piece cutter and right D/P are weaker than left, modera te strength. Crackles in bases of lungs, expiratory wheezes at times. On 3L, SpO2 95%. SBA w ith FWW to toilet. Urinal at bedside, good UO. lan of Caroline Fountain RRT - 02/27/2019 9:26 PM PDT Jose Raul [...] txs g iven via mouthpiece, tolerates well. lan of Judi Jeter RN - 02/27/2019 6:43 PM PDTC/o frequent [...] verbal cue s for safety Level of Preston: stand by assist, verbal cues required Assistive Device: 2 wheeled walker (FWW) Distance (feet): 30 x 2 Gait Deviations: kortney decreased, double stance time increased, limb motion velocity decr eased, step length decreased, stride length decreased, stride width increased, uvkmb-dv-oqrx ce ratio decreased, mir-sn-ditzb clearance decreased, weight-shifting ability decreased Safety Issues: [...] verbal cues for safety Sit-Stand, Level of Preston: stand by assist, verbal cues required Stand-Sit, Level of [place]: stand by assist, verbal cues required Yzr-Zlsnk-Qbc, Assistive Device: 2 wheeled walker (FWW) Safety [...] STG Status new at 02/26/2019 1425 STG [place] Level modified independent at 02/26/2019 1425 STG Comments log roll technique at 02/26/2019 1425 Txy-Bsywb-Reb Goal Most Recent Value STG Status continued at 02/27/2019 1200 STG [place] Level modified independent at 02/26/2019 1425 STG Assistive Device 2 wheeled walker (FWW) at 02/26/2019 1425 Gait Goal Most Recent Value STG Status continued at 02/27/2019 1200 STG [place] Level modified independent at 02/26/2019 1425 STG Assistive Device 2 wheeled walker (FWW) at 02/26/2019 1425 STG Distance (feet) 50 at 02/26/2019 1425 Stair Goal Most Recent Value STG Status new at 02/26/2019 1425 STG [place] Level modified independent at 02/26/2019 1425 STG [...] 02/27/2019 13:40 lan of Care - Gissell Hoff MSW - 02/27/2019 11:4 4 AM PDTThis therapeutic case manager met with Bill to discuss his discharge plan. His Iman was s leemelissa in the chair next to this bed. [...] a shoe horn, sock aide, and a veterinary medicine teacher. He states that as [facility]. Message sent to YUNIER Jacob asking for these DME orders. This CM called D[facility] in [facility] at the [facility]--she states that this will need to be [facility] to [facility] and to have Dr Gomez sign off on the DME then they would ship out the DME to him. His PCP is Dr Gomez, he uses [facility]. He asks that [facility] prior t o d.c. He feels like he will be safe to discharge home with his spouse. His father in law will be transporting him home. He plans on discharging tomorrow. PLAN: Home, needs DME from [facility], CM to fax RX to Dr Gomez upon discharge. Electronically sign ed by: JESSICA Rosas 02/27/2019 11:52 [facility]axed DME orders to [facility]. Spoke with Vanna at and she states that they w ill work on getting the DME processed. She states that they will most likely mail out the DM E to the patients home. Electronically signed by: JESSICA Rosas 02/27/2019 15:25Elect ronically signed by JESSICA Lewis at 02/27/2019 3:25 PM PDTPlan of Care - Jacquelyn Woodruff Chaplain - 02/27/2019 11:31 AM PDT Spiritual Care Jose Raul Palafox is a 58 y.o. male who is admitted for Neurogenic claudication [M48.062] Osteoarthritis of spine with radiculopathy, lumbar region [M47.26] Low back pain, unspecified back pain laterality, unspecified chronicity, with sciatica pres ence unspecified [M54.5]. Mortgage Operations Manager visit was part of routine rounding. Spiritual [...] from two hip surgeries. The patient attends [employer] in [place]. He is looking forward to running after his grand-daughters when he heals. Spiritual Interventions: The station mechanic attended, offered care, witnessed patient's story, explored [...] 11:34 AM PDTPlan of Care - Osman Pathak, OT - 02/27/2019 10:25 AM PDT Occupational [...] supervision, not yet able to mobilize at [facility] for home discharge and [...] no further OT Equipment Recommendations: sock aide, veterinary medicine teacher, long handled shoe horn, 2 wheeled walker [...] manage hospital gown UB Dressing, Level of Preston: minimal assist (75% patient effort) Assistive Device: none UB Dressing Assess/Train, Position: standing UB Dressing Impairments: decreased flexibility, ROM decreased, pain, impaired functional en durance/activity tolerance pt donned socks and hospital pants using AE with VCs and SBA when standing LB Dressing, Level of Preston: stand by assist, verbal cues required Assistive Device: long-handled shoe horn, veterinary medicine teacher, sock-aid LB Dressing Assess/Train, Position: sitting, standing LB Dressing Impairments: decreased flexibility, ROM decreased, pain pt brushed teeth, used mouthwash, and washed his face and hands at the sink with supervisio n and FWW Grooming, Level of Preston: supervised Assistive Device: none Grooming Assess/Train, Position: standing Grooming Impairments: pain, impaired functional endurance/activity tolerance Functional Endurance fair. limited by lumbar pain. Bed Mobility pt seated at EOB at beginning and end of treatment. States he has more pain when lying down than sitting. Advised him to consider sidelying and using an ice pack to decrease pain. Transfers Sit-Stand, Level of Preston: stand by assist, verbal cues required Stand-Sit, Level of [place]: stand by assist, verbal cues required Fud-Zwhhd-Ilv, Assistive Device: 2 wheeled walker (FWW) Toilet, Level of Preston: stand by assist, verbal cues required Toilet, Assistive Device: 2 wheeled walker (FWW), commode (3 in 1) Walk-in shower, Level of Preston: stand by assist, verbal cues required Walk-in [...] STG Status progressing at 02/27/2019 1025 STG [place] Level supervised at 02/26/2019 1602 LB Dressing Goal Most Recent Value STG Status progressing at 02/27/2019 1025 STG [place] Level supervised at 02/26/2019 1602 Toileting Goal Most Recent Value STG Status new at 02/26/2019 1602 STG [place] Level supervised at 02/26/2019 1602 Toilet Transfer Goal Most Recent Value STG Status progressing at 02/27/2019 1025 STG [place] Level supervised at 02/26/2019 1602 Tub/Shower Transfer Goal Most Recent Value Tub/Shower Type walk in shower stall at 02/26/2019 1602 STG Status progressing at 02/27/2019 1025 STG [place] Level supervised at 02/26/2019 1602 Electronically signed by: Osman Pathak OT, 02/27/2019 12:22 lan of Blanca Evans RN - 02/27/2019 5:28 AM PDTPt is [...] from falls this shift. VSS. lan of Caroline Fountain RRT - 02/27/2019 5:04 AM PDTR alph [...] : 3000 Patient Tolerance: good lan of Care - Amy Chan RN - 02/26/2019 4:20 PM PDTScott is [...] to monitor. Plan of Care - Carissa Dickerson OT - 02/26/2019 4:02 PM PDT Occupational [...] OT Equipment Recommendations: 2 wheeled walker (FWW), veterinary medicine teacher(Has a FWW that is his 's (l reynoldely too short). ) Planned Interventions:ADL retraining, bed [...] to be a log-roll. Reviewed log-roll and wbbg-ne-oitr he mobilized w/ good technique to EOB. R eturned to supine w/ fair+ technique. Assistive Device: bed rails, HOB elevated Supine to Sit, Level of Preston: contact guard assist, verbal cues required Sit to Supine, Level of Preston: contact guard assist, verbal cues required Safety Issues: decreased use of arms for pushing/pulling, decreased use of legs for bridgin g/pushing, impaired trunk control for bed mobility Impairments: decreased flexibility, ROM decreased, impaired balance, strength decreased, pa in, postural control impaired Transfers Mobilizing w/ light CGA, cues to maintain a safe distance w/ FWW. Cues to not twist. Toilet, Level of Preston: contact guard assist, verbal cues required Toilet, Assistive Device: 2 wheeled walker (FWW), commode (3 in 1)(commode over toilet) Walk-in shower, Level of Preston: contact guard assist, verbal cues required Walk-in [...] STG Status new at 02/26/2019 1602 STG Preston Level supervised at 02/26/2019 1602 LB Dressing Goal Most Recent Value STG Status new at 02/26/2019 1602 STG [place] Level supervised at 02/26/2019 1602 Toileting Goal Most Recent Value STG Status new at 02/26/2019 1602 STG Preston Level supervised at 02/26/2019 1602 Toilet Transfer Goal Most Recent Value STG Status new at 02/26/2019 1602 STG [place] Level supervised at 02/26/2019 1602 Tub/Shower Transfer Goal Most Recent Value Tub/Shower Type walk in shower stall at 02/26/2019 1602 STG Status new at 02/26/2019 1602 STG Preston Level supervised at 02/26/2019 1602 Electronically signed by: Carissa Dickerson OT, 02/26/2019 17:17 lan of Care - [...] safety, cues throughout for safety/sequencing Level of Preston: contact guard assist, verbal cues required, 1 person + 1 person to m anage equipment Assistive Device: 2 wheeled walker (FWW) Distance (feet): 30 x 2 Gait Deviations: kortney decreased, double stance time increased, limb motion velocity decr eased, step length decreased, stride length decreased, stride width increased, gpahw-cs-wrno ce ratio decreased, lqh-la-mpqjw clearance decreased, weight-shifting ability decreased Safety Issues: [...] ety and line management Sit-Stand, Level of Preston: contact guard assist, verbal cues required, 1 person + 1 person to manage equipment Stand-Sit, Level of Preston: contact guard assist, verbal cues required, 1 person + 1 person to manage equipment Dil-Ixijm-Ecv, Assistive Device: 2 wheeled walker (FWW) Safety Issues: sequencing ability decreased, weight-shifting ability decreased Impairments: decreased flexibility, strength decreased, impaired balance, coordination impa ired, motor control impaired, postural control impaired, pain Bed Mobility increased time/effort, vc/tc for log roll technique, min A to lift LEs back into bed Assistive Device: bed rails, HOB elevated Supine to Sit, Level of Preston: stand by assist, verbal cues required, tactile cues r equired Sit to Supine, Level of Preston: minimal assist (75% patient effort), verbal cues [...] pain ROM grossly WFL Strength grossly WFL [facility] BAS[facility]OBILITY Turning from your back to [...] Mobility Six Click AM-PAC: 18 Completed the [facility] Activity Measure for Post Acute Care (AM-PAC) "6 Clicks" Ba sic Mobility Inpatient Short Form. This version of the AM-PAC is an assessment tool used to measure a person's level of disability in performing basic mobility tasks. Jose Raul's score i ndicates a performance of 46.58% impairment in the functioning of basic mobility. Raw Score - Functional Limitation % (for [facility]) - "Severity Modifier" CN 6 - 100.00 [...] STG Status new at 02/26/2019 1425 STG Preston Level modified independent at 02/26/2019 1425 STG Comments log roll technique at 02/26/2019 1425 Haa-Qtiyo-Hjs Goal Most Recent Value STG Status new at 02/26/2019 1425 STG Preston Level modified independent at 02/26/2019 1425 STG Assistive Device 2 wheeled walker (FWW) at 02/26/2019 1425 Gait Goal Most Recent Value STG Status new at 02/26/2019 1425 STG Preston Level modified independent at 02/26/2019 1425 STG Assistive Device 2 wheeled walker (FWW) at 02/26/2019 1425 STG Distance (feet) 50 at 02/26/2019 1425 Stair Goal Most Recent Value STG Status new at 02/26/2019 1425 STG Preston Level modified independent at 02/26/2019 1425 STG [...] Surgeon: Denton Barakat M.D. Asst.: Cecil Hensley PA-Antione Indications this patient presented with intractable low [...] patient was turned from supine on the [facility] to prone on the Arian table. 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 | | | Osteoarthritis of | 02/27/2019 [...] | | Jackso | | | n Koppel | | | Frame | +---+--------+ | [...] + documented in this encounter Results MENDOZA Talbot-Sid Stats No Charge (02/26/2019 9:59 AM PDT) + [...] | | POC | | | STSaritha SARAH | | [...] [address] | [place] Zimmerman | [phone] | | [facility] | | [address] | | | - LABORATORY | | [...] +---+---+ | | | +---+---+ + +-------+ +---------+---+ + | bacitracin injection PRN, | Given | 02/27/20 | 50,000 | | Surgical | | Starting 02/26/19 at 0916, | | 19 9:16 | Units | | Site | | Intra-op | | AM PDT | | | | + +-------+ +---------+---+ + +---+---+ | | | +---+---+ + +-------+ +--------+---+---+ | budesonide (PULMICORT) 0.5 mg/2 | Given | 02/29/20 | 0.5 mg | | | | mL nebulizer solution 0.5 mg | | 19 9:54 | | | | | 0.5 mg, Nebulization, RT BID, | | AM PDT | | | | | First dose on 02/26/19 at 2100, | | | | | [...] dose on 02/26/19 at 1215, | | AM PDT | [...] +-------+ +-------+---+---+ +-------+ +-------+---+---+ | Given | 08/06/20 | 10 mg | | | | [...] HOURS PRN, | | | Itching, Starting 02/26/19 at | | | 1149, Oral route is preferred., | | | Post-op/Phase II | | + +---+ | | | + +---+ | diphenhydrAMINE (BENADRYL) | | | tablet 25 mg 25 mg, Oral, EVERY | | | 4 HOURS PRN, Itching, Starting | | | 02/26/19 at 1149, Oral route is | | | preferred., Post-op/Phase II | | + +---+ | | | + +---+ + +-------+ +--------+---+---+ | docusate sodium (COLACE) | Given | 02/28/20 | 100 mg | | | | capsule 100 mg 100 mg, Oral, 2 | | 19 8:10 | | | | | TIMES [...] | | | DAILY, First dose on Tue02/26/19 | | AM PDT | | [...] | | | Q6H, First dose on Tue02/26/19 at | | | | | | [...] +---+---+ | | | +---+---+ + +-------+ +--------+---+ + | lidocaine 1%-EPINEPHrine | Given | 02/27/20 | 20 mLs | | Surgical | | 1:100,000 injection PRN, | | 19 10:00 | | | Site | | Starting Tue02/26/19 at 0833, | | AM PDT | | | | | Intra-op | | | | | | + +-------+ +--------+---+ + +-------+ +--------+---+ + | Given | 02/27/20 | 30 mLs | | Surgical | | | 19 8:33 | | | Site | | | AM PDT | | | | +-------+ +--------+---+ + +---+---+ | | | +---+---+ + [...] | | | | Starting 02/26/19 at 1215, | | | | [...] | | | | | dose on 02/26/19 at 1215, | | AM PDT | [...] | | | | PRN, Pain, Starting 02/26/19 at | | AM PDT | | [...] | Decreased Responsiveness, | | | Starting Tue02/27/19 at 1235, mix | | | 0.4mg [...] dose on Tue02/26/19 at 1215, | | PM PDT | [...]
--- OUTSIDE RECORDS SUMMARY | ~2020-03-18 | XMS | Encounter Summary ---
Demographics + + + | Address | [address] | | | [place] [address] | + + + | Home Phone | | + + + | Preferred Language | Unknown | + + + | Marital Status | | + + + | Sikhism Affiliation | Unknown | + + + [...] Team Providers + +------+ + | Care Hat Block Bench Hand Name | Role | Phone | + [...] + + | 02/14/ | Office | [facility] | Latonia Olson, | ST elevation | | 2017 | Visit | [facility] | MD [address] | myocardial | | | | REHABILITATION [address] | [place] | infarction involving | | | | [address] [place] | [address] | right coronary | | | | [place] [address] | | artery (HCC) | | | | [phone] | | | +--------+---------+ + + + [...] encounter Progress Notes Pricilla Zaldivar RN - 02/14/2017 10:00 AM PDT [facility] CARDIAC REHABILITATION [address] [facility] [address] Cardiac Rehab Date: 02/14/2017 Patient Information Patient Name: Jose Raul Palafox [...] adequate rise during exertion. Compliant with medications, Quit Smoking!. Continue monitored exercise. Any abnormal vital signs or rhythm strips will be reported in progress note. Please see vital signs record, exercise record and rhythm strip scanned into media section every . Appointment duration: 60 min Electronically signed by: Pricilla Zaldivar RN, 02/14/2017 12:54 Patient Name: Jose Raul Palafox/: 1960/ signed by Pricilla Zaldivar RN at 02/14/2017 12:55 PM PDTdocumented in this encounter Plan [...]
--- OUTSIDE RECORDS SUMMARY | ~2020-03-18 | XMS | Encounter Summary ---
Demographics + + + | Address | [address] | | | [place] [address] | + + + | Home Phone [...] + + + | Author | [facility] | | | and [place] | + + + | Organization | [facility] | | | and [...] Team Providers + +------+ + | Care Geothermal Heat Pump Machinist Name | Role | Phone | + +------+ + | Gary Gmoez MD | PCP | | + +------+ + Encounter Details +--------+ + + + + | Date | Type | Department | Care Team | Description | +--------+ + + + + | 11/22/ | Orders Only | [facility] | Denton Barakat | Spinal stenosis, | | 2019 | | NEUROSURGERY [address] | MD Olivier [address] | unspecified spinal | | | | [address] | [address] [place] | region (Primary Dx) | | | | [place], [place] | [place] [address] | | | | | [address] | [phone] | | | | | [phone] | | | +--------+ + + + [...] filedocumented as of this encounter Results XR Lumbar Spine 4 [...] + | Spinal stenosis, unspecified spinal region - Primary | + + documented in this encounter"
--- OUTSIDE RECORDS SUMMARY | ~2020-03-18 | XMS | Encounter Summary ---
Demographics + + + | Address | [address] | | | [place] [address] | + + + | Home Phone [...] Providers + +------+ + | Care Core Driller Helper Name | Role | Phone | + +------+ + | Gary Gomez MD | PCP | | + +------+ + Reason for Visit + +--------+ + | Reason | Onset | Comments | | | Date | | + +--------+ + | Patient Education | 02/14/ | Spine Class | | | 2019 | | + +--------+ + Encounter Details +--------+ + + + + | Date | Type | Department | Care Team | Description | +--------+ + + + + | 02/14/ | Telephone | [facility] [place] | Denton Barakat | Patient Education | | 2019 | | [facility] [address] MD [address] | (Spine Class) | | | | [address] | [address] [place] | | | | | [place], [place] | [place] [address] | | | | | [address] | [phone] | | | | | [phone] | | | +--------+ + + + [...] this encounter Miscellaneous Notes Telephone Encounter - Qiana Rubin RN - 02/14/2019 11:55 AM PDTMet with patient and spouse in exam room 1 in lieu of spine class today after patient's preop appointment. Discu ssed all spine class content relevant to planned procedure and Dr. Barakat's standard practi kahlil/ preferences. All questions answered at this time. Patient and spouse were encouraged to call with any q uestions or concerns. P DTdocumented in this encounter Plan of Treatment Not on filedocumented as of this encounter Visit Diagnoses Not on filedocumented in this encounter"
--- OUTSIDE RECORDS SUMMARY | ~2020-03-18 | XMS | Encounter Summary ---
Demographics + + + | Address | [address] | | | [place] [address] | + + + | Home Phone [...] | Author | [facility] | | | and [place] | + + + | Organization | [facility] | | | and [...] Team Providers + +------+ + | Care Poultryman Name | Role | Phone | + +------+ + | Gary Gomez MD | PCP | | + +------+ + Reason for Visit + + + | Reason | Comments | + + + | Hypertension | | + + + | Hyperlipidemia | | + + + | Congestive Heart | | | Failure | | + + + Follow Up (Routine) +--------+--------+ + + + + | Status | Reason | Specialty | Diagnoses / | Referred By | Referred To | | | | | Procedures | Contact | Contact | +--------+--------+ + + + + | Closed | | Cardiology | Diagnoses | Patricia, | Senia | | | | | | Gary | Geovanny | | | | | Atherosclero | MD Garry | MD Dean | | | | | tic heart | [address] | [address] | | | | | disease of | [place] | [address] [place] | | | | | pamunkey | DRIVE [place] | [place], [place] | | | | | coronary | [place], [place] | [address] Phone: | | | | | artery | [address] | [phone] | | | | | without | Phone: | Fax: | | | | | angina | [phone] | [phone] | | | | | pectoris | Fax: | | | | | | Encounter | [phone] | | | | | | for other | | | | | | | preprocedura | | | | | | | l | | | | | | | examination | | | | | | | Procedures | | | | | | | FUP - | | | | | | | ESTABLISHED | | | | | | | JJP PT | | | +--------+--------+ + + + + Encounter Details +--------+---------+ + + + | Date | Type | Department | Care Team | Description | +--------+---------+ + + + | 04/06/ | Office | [facility] | Geovanny Conn | CAD in pamunkey artery | | 2018 | Visit | CARDIOLOGY [address] | MD [address] | (Primary Dx); | | | | [place], | [address] [place] | Essential | | | | [place] [address] | [place] [address] | hypertension; | | | | [phone] | [phone] | Hyperlipidemia, | | | | | | unspecified | | | | | | hyperlipidemia type; | | | | | | Tobacco use | | | | | | disorder; | | | | | | Preoperative | | | | | | cardiovascular | | | | | | examination | +--------+---------+ + + + Social History [...] + + + | Blood Pressure | 104/78 | 04/06/2018 11:01 AM | | | | | PDT | | + + + + + | Pulse | 72 | 04/06/2018 11:01 AM | | | | | PDT | | + + + + + | Temperature | - | - | | + + + + + | Respiratory Rate | 20 | 04/06/2018 11:01 AM | | | | | PDT | | + + + + + | Oxygen Saturation | - | - | | + + + + + | Inhaled Oxygen | - | - | | | Concentration | | | | + + + + + | Weight | 96 kg (211 lb 10.3 | 04/06/2018 11:01 AM | | | | oz) | PDT | | + + + + + | Height | 188 cm (6' 2") | 04/06/2018 11:01 AM | | | | | PDT | | + + + + + | Body Mass Index | 27.17 | 04/06/2018 11:01 AM | | | | | PDT [...] encounter Progress Notes Geovanny Conn MD - 04/06/2018 11:30 AM PDTFormatting of this note might be differe nt from the original. PATIENT NAME: Jose Raul Maldonado : 1960: AGE: 57 y.o. REFERRED BY: Gary Gomez PRIMARY CARE: Tommy Gomez MD CARDIOLOGY OFFICE VISIT Date of Service: 04/06/18 HISTORY OF PRESENT ILLNESS: Jose Raul Maldonado, preferred name: Bill, is a 57 y.o. male presents for consultation give n history of inferior STEMI 2016 followed by repeat revascularization, tobacco use, emphysem a, and dyslipidemia. Patient has had chronic back pain and underwent injection therapy approximately 2 months ag o and may be in need of surgery. He has a history of C3-7 anterior fusion December 2014 and at that time he was discharged on home oxygen therapy which persists. Patient has had a history of heavy tobacco use, up to 2 packs per day but continues to smok e now down to a few cigarettes daily. He initially presented with an inferior STEMI [...] self-limiting and without clear exertional correlatio n. He denies problems such as orthopnea, PND, or lower extremity edema, or any palpitations, l ightheadedness, or syncope. He has had no constitutional symptoms. MEDICAL, SURGICAL, AND PERSONAL HISTORY Past Medical History: Diagnosis Date Anxiety Asthma CAD in pamunkey artery COPD (chronic obstructive pulmonary disease) (HCC) Diverticulitis Emphysema of lung (HCC) Hepatitis C Hernia, hiatal History of tobacco use Hyperlipidemia Hypertension Migraine Neuropathy Other cervical disc displacement, unspecified cervical region Restless leg syndrome Thoracic radiculopathy 08/17/2016 Thyroid disease Thyroid disease Past Surgical History: Procedure Laterality Date CARDIAC CATHERIZATION N/A 11/03/2016 Procedure: CV Cor Angio; Surgeon: Latonia Olson MD; Location: [facility] CV LAB CARDIAC CATHERIZATION N/A 11/03/2016 Procedure: CV Cor Angio; Surgeon: Latonia Olson MD; Location: [facility] CV LAB CARDIAC CATHERIZATION N/A 12/23/2016 Procedure: CV LHC; Surgeon: Latonia Olson MD; Location: [facility] CV LAB CERVICAL SPINE SURGERY N/A 01/07/2015 Procedure: C3-4, C4-5, C5-6, C6-7, Anterior Cervical Discectomy w/ Fusion and Plating, Pos terior Fusion at C3-4, C4-5, C5-6, C6-7, C7-T1, and T1-2; Surgeon: Aleksander Stern DO; Loc ation: [facility] MAIN OR CHOLECYSTECTOMY 2010 Dr. 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 Sexual activity: No Other Topics Concern None Social History Narrative None CURRENT MEDICATIONS Current Outpatient Prescriptions Medication Sig Dispense Refill aspirin 81 MG EC tablet Take 1 tablet by mouth Daily. 30 tablet atorvaSTATin (LIPITOR) 80 MG tablet Take 1 tablet by mouth nightly. Do not take for a w picayune 30 tablet 11 busPIRone (BUSPAR) 15 mg [...] into the media tab. OBJECTIVE: PHYSICAL EXAM Ht 1.88 m (6' 2") Physical Exam Constitutional: He is oriented to person, place, and time. He appears well-developed and we ll-nourished. HENT: Head: Normocephalic. Eyes: No scleral icterus. Neck: Normal carotid pulses and no JVD present. Carotid bruit is not present. Cardiovascular: Normal rate, regular rhythm, S1 normal, S2 normal, normal heart sounds, int act distal pulses and normal pulses. PMI is not displaced. Exam reveals no gallop and no m idsystolic click. No murmur heard. Pulses: Carotid pulses are 2+ on the right side, and 2+ on the left side. Radial pulses are 2+ on the right side, and 2+ on the left side. Dorsalis pedis pulses are 2+ on the right side, and 2+ on the left side. Pulmonary/Chest: Effort normal and breath sounds normal. No accessory muscle usage. No resp iratory distress. He has no wheezes. He has no rhonchi. He has no rales. Patient appears on supplemental oxygen therapy. Abdominal: Soft. Normal aorta and bowel sounds are normal. He exhibits no abdominal bruit. There is [...] does not exh ibit a depressed mood. Vitals reviewed. ECG: The tracing shows normal EKG, normal sinus rhythm, unchanged from previous tracings. Heart rate: 71 LAB RESULTS: LIPID Lab Results Component Value Date CHOL 179 11/04/2016 TRIG 197 (H) 11/04/2016 HDL 34 11/04/2016 LDL 106 11/04/2016 CHOLHDL 5.3 11/04/2016 LDL [facility] 73 (2018) CHEMISTRY Lab Results Component Value Date GLU [...] from PCP for office visit on 02/13/2018. Cardiovascular diagnostic testing reviewed by me with the patient today: Left heart catheterization and coronary angiography October [...] 2016 results reviewed by me with t he patient today notable for PCI of the [...] done well without any exertional symptoms and occasional atypical co mplaints of sharp chest discomfort at rest. His risk factor profile has been significantly modified with good lipid control. Unfortunately he continues to smoke albeit significantly less than before. There is no indication for further cardiovascular diagnostics and he may proceed with his elective surgery. His Effient may be held perioperatively and should be re sumed when feasible postoperatively. Otherwise focus will remain on continued medical thera py and risk factor reduction. At some point in the future he may benefit from an echocardio gram to reassess his LV systolic function. -No further cardiovascular diagnostics. -Proceed with elective surgery. -May hold Effient perioperatively and resume thereafter. 2. Dyslipidemia - patient's lipids are nearly at goal on high-dose atorvastatin regimen wh ich will be continued. We discussed lifestyle and dietary modification recommendations. 3. Tobacco cessation - this was discussed at length with the patient today (> 5 minutes) a nd will benefit from future reinforcement. Patient is down to a few cigarettes daily. This is especially important given his history of oxygen-dependent emphysema. Portions of this report were transcribed using voice recognition software. Every effort wa s made to ensure accuracy; however, inadvertent computerized food tray assembler errors may be pre sent. Electronically signed by: Ehsan Conn MD PhD [facility] 04/06/2018 documented in t his encounter Plan of Treatment Not on filedocumented as of this encounter Procedures + +--------+ + + + | Procedure Name | Priori | Date/Time | Associated Diagnosis | Comments | | | ty | | | | + +--------+ + + + | ECG 12 LEAD | Routin | 04/06/2018 | CAD in pamunkey | Results for this | | | e | 11:42 AM | artery Essential | procedure are in the | | | | PDT | hypertension | results section. | + +--------+ + + + documented in this encounter Results ECG 12 lead (04/06/2018 11:42 AM PDT) + + + + + [...] + + + + | P-R | 142 | ms | [facility] | | [...] + + + + | Q-T | 423 | ms | [facility] | | | INTERVAL | | | | | | (CORRECTED) | | | | | + + + + + + | P WAVE AXIS | 72 | degrees | [facility] | | + + + + + + | QRS AXIS | 35 | degrees | [facility] | | + + + + + + | T AXIS | 39 | degrees | [facility] | | + + + + + + | INTERPRETAT | Normal sinus | | [facility] | | | ION TEXT | rhythmNormal ECGWhen | | | | | | compared with ECG of | | | | | | 24-FEB-2017 12:05,No | | | | | | significant change was | | | | | | foundConfirmed by SENIA | | | | | | DEAN WESTBROOK ([id number]) on | | | | | | 04/06/2018 7:37:54 PM | | | | + + [...] + | Diagnosis | + + | CAD in pamunkey artery - Primary Coronary atherosclerosis of pamunkey coronary artery | + + | Essential hypertension Unspecified essential hypertension | + + | Hyperlipidemia, unspecified hyperlipidemia type | + + | Tobacco use disorder | + + | Preoperative cardiovascular examination Pre-operative cardiovascular examination | + + documented in this encounter
--- OUTSIDE RECORDS SUMMARY | ~2020-03-18 | XMS | Encounter Summary ---
Demographics + + + | Address | [address] | | | [place] [address] | + + + | Home Phone [...] Team Providers + +------+ + | Care Fisher Name | Role | Phone | + +------+ + PCP | Unavailable | + +------+ + Encounter Details +--------+ + + + + | Date | Type | Department | Care Team | Description | +--------+ + + + + | 02/24/ | Hospital | [facility] | Gabbi Quick MD | Cervicalgia | | 2008 | Encounter | [facility] | [address] | | | | | CLINICAL DECISION | [place] | | | | | [address] [facility] | [address] | | | | | [place] | | | | | | [address] | | | | | | [phone] | | | +--------+ + + + [...] | + +--------+ + + + | CT CERVICAL SPINE WO | Routin | 02/24/2009 | | Results for this | | CONTRAST | e | 11:47 AM | | procedure are in the | | | | PDT | | results section. | + +--------+ + + + | FL MYELOGRAM | Routin | 02/24/2009 | | Results for this | | CERVICAL | e | 11:36 AM | | procedure are in the | | | | PDT | | results section. | + +--------+ + + + documented in this encounter Results CT Cervical Spine wo Contrast (02/24/2009 11:47 AM PDT) + + | Specimen | + + | | + + + + + | Narrative | Performed At | + + + | [id number] | | | Page 1 RADIOLOGY | | | [facility] [address]/ | | | OPS [facility] | | | CENTER NAME: [place] [address] | | | | | | | | | DATE OF : 1960 ORDER NUMBER: | | | [id number] EXAM DATE/TIME: 02/24/2009 08:39 A ORDERING PHYSICIAN: | | | GABBI QUICK ORDER DETAIL: [id number] / / HCT EXAM DESCRIPTION: CT | | | CERVICAL SPINE | | | | | | CERVICAL MYELOGRAM OF THE CERVICAL SPINE 02/24/2009 INDICATIONS | | | Upper extremity paresthesias. COMPARISON No comparison myelogram. | | | MRI of the cervical spine 09/18/2004. TECHNIQUE Intrathecal | | | contrast had been injected under fluoroscopic guidance (procedure | | | dictated separately). 1.25-mm tomograms, contiguous, transaxial, were | | | obtained through the cervical spine. From these, sagittal and | | | coronal reformatted images were obtained. FINDINGS We visualize | | | vertebrae from C1 through C7. Heights of cervical vertebral bodies | | | are preserved, without acute fracture or compression fracture. There | | | is narrowing of intervertebral disk spaces at multiple levels, | | | including C6-C7, C7-T1, C5-C6, and C4-C5. Small marginal osteophytes | | | are present. There is no stenosis of the bony spinal canal in the | | | cervical region. Posterior elements appear intact. There is no | | | Chiari malformation. Axial images begin at the C2-C3 level. Here | | | there is no significant posterior disk herniation. No spinal stenosis | | | or foraminal narrowing. At C3-C4, there is bulky facet disease, | | | particularly on the left. No spinal stenosis. Left intervertebral | | | foramen is somewhat narrowed. At C4-C5, there is bulky facet | | | disease. No spinal stenosis. Intervertebral foramina appear patent. | | | At C5-C6, there is no significant posterior disk herniation. No | | | spinal stenosis. Intervertebral foramina are patent. At C6-C7, | | | there is a mild posterior disk bulge. No spinal stenosis. | | | Intervertebral foramina appear patent. At the level of C7-T1, | | | there is a large posterior disk protrusion, left paracentral and left | | | lateral. This effaces the anterior thecal sac to the left of midline | | | and appears to impinge upon the exiting left C8 nerve root (series 2 | | | image 120 and 119). The right intervertebral foramen at this | | | level appears patent. IMPRESSION 1. No cervical spinal stenosis | | | is seen. There is a posterior disk protrusion at C7-T1 which may | | | affect the exiting left C8 nerve root in the left intervertebral | | | foramen. 2. Multilevel degenerative disk disease. Read by | | | LAUREN KENNEY MD 02/24/2009 08:18 P Electronically Signed by LAUREN | | | Kendy KENNEY MD 02/25/2009 08:09 P P DT: | | | 02/25/2009 10:26 A FELICIANO/alfie/[id number]/ cc: LAUREN KENNEY MD | | | GABBI QUICK MD | | + + + + + | Procedure Note | + + | Elliott Vegas - 03/19/2019 1:36 AM PDT | | [id number] Page 1 | | RADIOLOGY CDU 34769/ | | OPS | | [facility] NAME: JENNIFER PALAFOX | | [place] [address] | | | | DATE OF : 1960 | | | | ORDER NUMBER: [id number] | | EXAM DATE/TIME: 02/24/2009 08:39 A | | ORDERING PHYSICIAN: GABBI QUICK | | ORDER DETAIL: [id number] / / HCT | | EXAM DESCRIPTION: CT CERVICAL SPINE | | | | CERVICAL MYELOGRAM OF THE CERVICAL SPINE 02/24/2009 | | | | INDICATIONS | | Upper extremity paresthesias. | | | | COMPARISON | | No comparison myelogram. MRI of the cervical spine 09/18/2004. | | | | TECHNIQUE | | Intrathecal contrast had been injected under fluoroscopic guidance | | (procedure dictated separately). 1.25-mm tomograms, contiguous, | | transaxial, were obtained through the cervical spine. From these, | | sagittal and coronal reformatted images were obtained. | | | | FINDINGS | | We visualize vertebrae from C1 through C7. Heights of cervical vertebral | | bodies are preserved, without acute fracture or compression fracture. | | There is narrowing of intervertebral disk spaces at multiple levels, | | including C6-C7, C7-T1, C5-C6, and C4-C5. Small marginal osteophytes are | | present. | | | | There is no stenosis of the bony spinal canal in the cervical region. | | Posterior elements appear intact. There is no Chiari malformation. | | | | Axial images begin at the C2-C3 level. Here there is no significant | | posterior disk herniation. No spinal stenosis or foraminal narrowing. | | | | At C3-C4, there is bulky facet disease, particularly on the left. No | | spinal stenosis. Left intervertebral foramen is somewhat narrowed. | | | | At C4-C5, there is bulky facet disease. No spinal stenosis. | | Intervertebral foramina appear patent. | | | | At C5-C6, there is no significant posterior disk herniation. No spinal | | stenosis. Intervertebral foramina are patent. | | | | At C6-C7, there is a mild posterior disk bulge. No spinal stenosis. | | Intervertebral foramina appear patent. | | | | At the level of C7-T1, there is a large posterior disk protrusion, left | | paracentral and left lateral. This effaces the anterior thecal sac to | | the left of midline and appears to impinge upon the exiting left C8 | | nerve root (series 2 image 120 and 119). | | | | The right intervertebral foramen at this level appears patent. | | | | IMPRESSION | | 1. No cervical spinal stenosis is seen. There is a posterior disk | | protrusion at C7-T1 which may affect the exiting left C8 nerve root | | in the left intervertebral foramen. | | 2. Multilevel degenerative disk disease. | | | | | | | | Read by | | LAUREN KENNEY MD 02/24/2009 08:18 P | | Electronically Signed by | | LAUREN KENNEY MD 02/25/2009 08:09 P | | | | P | | A | | FELICIANO/alfie/[id number]/ | | cc: LAUREN KENNEY MD | | GABBI QUICK MD | + + FL Myelogram Cervical (02/24/2009 11:36 AM PDT) + + | Specimen | + + | | + + + + + | Narrative | Performed At | + + + | [id number] | | | Page 1 RADIOLOGY | | | CDU 8[address]/ | | | [facility] | | | CENTER NAME: [place] [address] | | | | | | | | | DATE OF : 1960 ORDER NUMBER: | | | [id number] EXAM DATE/TIME: 02/24/2009 08:39 A ORDERING PHYSICIAN: | | | ALEXSANDRA DEIDRATyra ORDER DETAIL: [id number] / / HDI EXAM DESCRIPTION: XR | | | CERVICAL MYELOGRAM | | | | | | CERVICAL MYELOGRAM OF THE CERVICAL SPINE 02/24/2009 INDICATIONS | | | Upper extremity paresthesias. COMPARISON No comparison myelogram. | | | MRI of the cervical spine 09/18/2004. TECHNIQUE Intrathecal | | | contrast had been injected under fluoroscopic guidance (procedure | | | dictated separately). 1.25-mm tomograms, contiguous, transaxial, were | | | obtained through the cervical spine. From these, sagittal and | | | coronal reformatted images were obtained. FINDINGS We visualize | | | vertebrae from C1 through C7. Heights of cervical vertebral bodies | | | are preserved, without acute fracture or compression fracture. There | | | is narrowing of intervertebral disk spaces at multiple levels, | | | including C6-C7, C7-T1, C5-C6, and C4-C5. Small marginal osteophytes | | | are present. There is no stenosis of the bony spinal canal in the | | | cervical region. Posterior elements appear intact. There is no | | | Chiari malformation. Axial images begin at the C2-C3 level. Here | | | there is no significant posterior disk herniation. No spinal stenosis | | | or foraminal narrowing. At C3-C4, there is bulky facet disease, | | | particularly on the left. No spinal stenosis. Left intervertebral | | | foramen is somewhat narrowed. At C4-C5, there is bulky facet | | | disease. No spinal stenosis. Intervertebral foramina appear patent. | | | At C5-C6, there is no significant posterior disk herniation. No | | | spinal stenosis. Intervertebral foramina are patent. At C6-C7, | | | there is a mild posterior disk bulge. No spinal stenosis. | | | Intervertebral foramina appear patent. At the level of C7-T1, | | | there is a large posterior disk protrusion, left paracentral and left | | | lateral. This effaces the anterior thecal sac to the left of midline | | | and appears to impinge upon the exiting left C8 nerve root (series 2 | | | image 120 and 119). The right intervertebral foramen at this | | | level appears patent. IMPRESSION 1. No cervical spinal stenosis | | | is seen. There is a posterior disk protrusion at C7-T1 which may | | | affect the exiting left C8 nerve root in the left intervertebral | | | foramen. 2. Multilevel degenerative disk disease. Read | | | by LAUREN KENNEY MD 02/24/2009 07:57 P Electronically Signed by | | | LAUREN KENNEY MD 02/25/2009 08:09 P P | | | A FELICIANO/alfie/[id number]/ cc: LAUREN KENNEY MD | | | GABBI QUICK MD | | + + + + + | Procedure Note | + + | Elliott Vegas - 03/19/2019 1:36 AM PDT | | [id number] Page 1 | | RADIOLOGY CDU 71131/ | | OPS | | [facility] NAME: JENNIFER PALAFOX | | [place] [address] | | | | DATE OF : 1960 | | | | ORDER NUMBER: [id number] | | EXAM DATE/TIME: 02/24/2009 08:39 A | | ORDERING PHYSICIAN: GABBI QUICK | | ORDER DETAIL: [id number] / / HDI | | EXAM DESCRIPTION: XR CERVICAL MYELOGRAM | | | | CERVICAL MYELOGRAM OF THE CERVICAL SPINE 02/24/2009 | | | | INDICATIONS | | Upper extremity paresthesias. | | | | COMPARISON | | No comparison myelogram. MRI of the cervical spine 09/18/2004. | | | | TECHNIQUE | | Intrathecal contrast had been injected under fluoroscopic guidance | | (procedure dictated separately). 1.25-mm tomograms, contiguous, | | transaxial, were obtained through the cervical spine. From these, | | sagittal and coronal reformatted images were obtained. | | | | FINDINGS | | We visualize vertebrae from C1 through C7. Heights of cervical vertebral | | bodies are preserved, without acute fracture or compression fracture. | | There is narrowing of intervertebral disk spaces at multiple levels, | | including C6-C7, C7-T1, C5-C6, and C4-C5. Small marginal osteophytes are | | present. | | | | There is no stenosis of the bony spinal canal in the cervical region. | | Posterior elements appear intact. There is no Chiari malformation. | | | | Axial images begin at the C2-C3 level. Here there is no significant | | posterior disk herniation. No spinal stenosis or foraminal narrowing. | | | | At C3-C4, there is bulky facet disease, particularly on the left. No | | spinal stenosis. Left intervertebral foramen is somewhat narrowed. | | | | At C4-C5, there is bulky facet disease. No spinal stenosis. | | Intervertebral foramina appear patent. | | | | At C5-C6, there is no significant posterior disk herniation. No spinal | | stenosis. Intervertebral foramina are patent. | | | | At C6-C7, there is a mild posterior disk bulge. No spinal stenosis. | | Intervertebral foramina appear patent. | | | | At the level of C7-T1, there is a large posterior disk protrusion, left | | paracentral and left lateral. This effaces the anterior thecal sac to | | the left of midline and appears to impinge upon the exiting left C8 | | nerve root (series 2 image 120 and 119). | | | | The right intervertebral foramen at this level appears patent. | | | | IMPRESSION | | 1. No cervical spinal stenosis is seen. There is a posterior disk | | protrusion at C7-T1 which may affect the exiting left C8 nerve root | | in the left intervertebral foramen. | | 2. Multilevel degenerative disk disease. | | | | | | | | | | Read by | | LAUREN KENNEY MD 02/24/2009 07:57 P | | Electronically Signed by | | LAUREN KENNEY MD 02/25/2009 08:09 P | | | | P | | A | | FELICIANO/alfie/[id number]/ | | cc: LAUREN KENNEY MD | | GABBI QUICK MD | + + documented in this encounter Visit Diagnoses + + | Diagnosis | + + | Cervicalgia | + + documented in this encounter"
--- OUTSIDE RECORDS SUMMARY | ~2020-03-18 | XMS | Encounter Summary ---
Demographics + + + | Address | [address] | | | [place] [address] | + + + | Home Phone | | + + + | Preferred Language | Unknown | + + + | Marital Status | | + + + | Spiritism Affiliation | Unknown | + + + | Race | White | + + + | Ethnic Group | Not or | + + + Author + + + | Author | [facility] | | | and [place] | + + + | Organization | [facility] | | [...] Team Providers + +------+ + | Care Flyer Maker Name | Role | Phone | + +------+ + | Gary Gomez MD | PCP | | + +------+ + Reason for Visit + + + | Reason | Comments | + + + | Pain Management | Preop & discharge MEDD | + + + Encounter Details +--------+ + + + + | Date | Type | Department | Care Team | Description | +--------+ + + + + | 02/26/ | Documentati | [facility] | Denton Barakat | Pain Management | | 2019 | on | [address] | MD Olivier [address] | (Preop & discharge | | | | [address] | [address] [place] | MEDD) | | | | [place], [place] | [place] [address] | | | | | [address] | [phone] | | | | | [phone] | | | +--------+ + + + [...] as of this encounter Progress Notes Qiana Rubin, RADHA - 02/26/2019 9:12 AM PDTPatient discharged home 02/28/19 Max MEDD= 90 mg Oxycodone 5 mg, 1-3 every 4 hours, max 12/ day cCullQiana baig RN - 02/26/2019 9:12 AM PDTPMP checked r/t Right L2-L3, L3-L4, L4-L5 Decompressive Laminectomies by Dr. Barakat on 02/26/19 02/14/19 Documentation encounter reviewed r/t SENIOR REGULATORY AFFAIRS SPECIALIST report issues Preop MEDD= 30 ([facility], Dr[facility]) Mina 5-325 mg, #168 last filled 02/19/19 documented in this encounter Plan of Treatment Not on filedocumented as of this encounter Visit Diagnoses Not on filedocumented in this encounter"
--- OUTSIDE RECORDS SUMMARY | ~2020-03-18 | XMS | Encounter Summary ---
Demographics + + + | Address | [address] | | | [place] [address] | + + + | Home Phone | | + + + | Preferred Language | Unknown | + + + | Marital Status | | + + + | Latter-Day Affiliation | Unknown | + + + | Race | White | + + + | Ethnic Group | Not or | + + + Author + + + | Author | [facility] | | | and [place] | + + + | Organization | [facility] | | | [...] Providers + +------+ + | Care Wood Milling Machine Tender Name | Role | Phone [...] Description | +--------+---------+ + + + | 02/02/ | Office | [facility] | Latonia Olson, | ST elevation | | 2017 | Visit | [facility] | MD [address] | myocardial | | | | REHABILITATION [address] | [place] | infarction involving | | | | [address] [place] | [address] | right coronary | | | | [place] [address] | | artery (HCC) | | | | [phone] | | | +--------+---------+ + + + [...] encounter Progress Notes Pricilla Zaldivar RN - 02/02/2017 10:00 AM PDT [facility] [address] [facility] [address] Cardiac Rehab Date: 02/02/2017 Patient Information Patient Name: Jose Raul Palafox [...] exertion. Compliant with medications, but continues to smoke 10 cigs/day. He will get book for quitti ng-today. Continue monitored exercise. Any abnormal vital signs or rhythm strips will be reported in progress note. Please see vital signs record, exercise record and rhythm strip scanned into media section every . Appointment duration: 60 min Electronically signed by: Pricilla Zaldivar RN, 02/02/2017 12:27 Patient Name: Jose Raul Palafox/: 1960/ signed by Pricilla Zaldivar RN at 02/02/2017 12:28 PM PDTdocumented in this encounter Plan of [...]
--- OUTSIDE RECORDS SUMMARY | ~2020-03-18 | XMS | Encounter Summary ---
Demographics + + + | Address | [address] | | | [place] [address] | + + + | Home Phone | | + + + | Preferred Language | Unknown | + + + | Marital Status | | + + + | Anabaptism Affiliation | Unknown | + + + [...] Team Providers + +------+ + | Care Lead Installer Name | Role | Phone | + +------+ + | Gary Gomez MD | PCP | | + +------+ + Reason for Visit +--------+--------+ + | Reason | Onset | Comments | | | Date | | +--------+--------+ + | Other | 12/24/ | plan of care | | | 2016 | | +--------+--------+ + Encounter Details +--------+ + + + + | Date | Type | Department | Care Team | Description | +--------+ + + + + | 12/24/ | Telephone | [facility] | Latonia Olson, | Other (plan of care) | | 2017 | | CARDIOLOGY [address] | MD [address] | | | | | [place], | [place] | | | | | [place] [address] | [address] | | | | | [phone] | | | +--------+ + + + [...] this encounter Miscellaneous Notes Telephone Encounter - Zoey Kat - 12/24/2016 2:30 PM PDTPatient is scheduled on at [address] Angeles. elephone Encounter - Diana Wilson RN - 12/24/2016 8:39 AM PDTPer discharge summary: MIKHAIL PEREZW-UP: Follow up with Whitney the week of the 10 of January. I will ask PSR's to please contact the patient to coordinate an appointment. Thanks ....... ....................................Diana Wilson RN on 12/24/16 at 8:39 documented in this encounter Plan of Treatment Not on filedocumented as of this encounter Visit Diagnoses Not on filedocumented in this encounter"
--- OUTSIDE RECORDS SUMMARY | ~2020-03-18 | XMS | Encounter Summary ---
Demographics + + + | Address | [address] | | | [place] [address] | + + + | Home Phone | | + + + | Preferred Language | Unknown | + + + | Marital Status | | + + + | Sabianist Affiliation | Unknown | + + + | Race | White | + + + | Ethnic Group | Not or | + + + Author + + + | Author | [facility] | | | and [place] | + + + | Organization | [facility] | | | [...] Team Providers + +------+ + | Care Coil Spring Assembler Name | Role | Phone | [...] Description | +--------+---------+ + + + | 02/11/ | Office | [facility] | Latonia Olson, | ST elevation | | 2017 | Visit | [facility] | MD [address] | myocardial | | | | REHABILITATION [address] | [place] | infarction involving | | | | [address] [place] | [address] | right coronary | | | | [place] [address] | | artery (HCC) | | | | [phone] | | | +--------+---------+ + + + [...] encounter Progress Notes Pricilla Zaldivar RN - 02/11/2017 10:00 AM PDT [facility] [address] [facility] [address] Cardiac Rehab Date: 02/11/2017 Patient Information Patient Name: Jose Raul Palafox [...] min Electronically signed by: Pricilla Zaldivar RN, 02/11/2017 11:01 Patient Name: Jose Raul Palafox/: 1960/ signed by Pricilla Zaldivar RN at 02/11/2017 11:02 AM PDTdocumented in this encounter Plan of [...]
--- OUTSIDE RECORDS SUMMARY | ~2020-03-18 | XMS | Encounter Summary ---
Demographics + + + | Address | [address] | | | [place] [address] | + + + | Home Phone | | + + + | Preferred Language | Unknown | + + + | Marital Status | | + + + | Sabianism Affiliation | Unknown | + + + | Race | White | + + + | Ethnic Group | Not or | + + + Author + + + | Author | [facility] | | | and [place] | + + + | Organization | [facility] | | [...] Team Providers + +------+ + | Care High School Coordinator Name | Role | Phone | + +------+ + | Gary Gomez MD | PCP | | + +------+ + Reason for Visit + +--------+ + | Reason | Onset | Comments | | | Date | | + +--------+ + | Hospital Follow-up | 11/08/ | | | | 2016 | | + +--------+ + Encounter Details +--------+ + + + + | Date | Type | Department | Care Team | Description | +--------+ + + + + | 11/08/ | Telephone | [facility] | Shannan Justin, | Hospital Follow-up | | 2017 | | [facility] | PharmD [address] | | | | | [address] [place] | [address] [place] | | | | | [place] [address] | [place] [address] | | | | | [phone] | [phone] | | +--------+ + + + + [...] encounter Miscellaneous Notes Telephone Encounter - Shannan Justin PharmD - 11/10/2016 9:57 AM PDTCalled patient for m edication follow-up. Mr. Palafox saw Dr. Gomez, PCP, yesterday. Has started colchicine, aspirin 81 mg, and nicotine lozenges. Holding atorvastatin until f inished with colchicine course. Dr. Gomez sent Rx so hopefully patient will have a 1-2 week reserve (extra supply) of ticag relor in case of any backup from the [place] pharmacy. Has significantly cut down on smoking, and is working on quitting. Dr. Gomez has filled out paperwork so patient can get follow-up with Dr. Olson scheduled for the end of this month. Needs referral for cardiac rehab faxed to PCP from Dr. Garcia's office so that [place] will elijah rove it. This pharmacist routed note to Cardiology clinical team for this. Patient expressed immense appreciation for the care he received surrounding this event and is looking forward to returning for continued follow-up. Shannan Justin PHARMD 11/10/2016 10:08 elephone Encount er - Shannan Justin PharmD - 11/08/2016 1:38 PM PDTHospital Follow-Up Phone Call Date discharged: 11/05/16 Primary Diagnosis: STEMI Education done/topics reviewed: 1. Health Status- Better. Taking it slow. 2. Diagnosis education- reviewed pts knowledge of primary diagnosis and provided additional education. 3. Medication Reconciliation - Medications reconciled over the phone with patient looking at prescription bottles. - Did NOT get colchicine; called Dr. Olson and stated to start atorvastatin. However, Dr. Gomez will get colchicine approved, so patient will start that one-week course (holding atorvastatin for the week.) - Will get aspirin from [place] tomorrow. 4. Reminded pt of scheduled follow-up appointment. 5. Reviewed what do in emergency as well as a non-emergent situation. Verified pt has doct or's contact information. Date of follow-up appointment with PCP: Dr. Gomez on 11/09; Dr. Olson in 1-2 weeks Patient will call on 11/09 with updates from PCP appointment. Shannan Justin PHARMD 11/08/2016 13:52 documented in thi s encounter Plan of Treatment Not on filedocumented as of this encounter Visit Diagnoses Not on filedocumented in this encounter"
--- OUTSIDE RECORDS SUMMARY | ~2020-03-18 | XMS | Encounter Summary ---
Demographics + + + | Address | [address] | | | [place] [address] | + + + | Home Phone [...] Team Providers + +------+ + | Care Hands Parter Name | Role | Phone | + [...] Description | +--------+---------+ + + + | 03/18/ | Office | [facility] | Latonia Olson, | ST elevation | | 2017 | Visit | [facility] | MD [address] | myocardial | | | | REHABILITATION [address] | [place] | infarction involving | | | | [address] [place] | [address] | right coronary | | | | [place] [address] | | artery (HCC) | | | | [phone] | | | +--------+---------+ + + + [...] encounter Progress Notes Pricilla Zaldivar RN - 03/18/2017 12:45 PM PDT [facility] REH[facility]ITATION [address] [facility] [address] Cardiac Rehab Date: 03/18/2017 Patient Information Patient Name: Jose Raul Palafox Date of : 1960 Age: 56 y.o. Encounter Diagnoses Code Name Primary? 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 Yes Any Changes in Medications? No 01/19/17 gabapentin. Any Problems to Report? No 03/16/17 it is very smokey in [place], he has been short of sergio ath. 03/18/17 Advised to seek medical attention for this. Pain Level: 9/10 leg, T-spine, neck Home [...] min Electronically signed by: Pricilla Zaldivar RN, 03/18/2017 12:35 Patient Name: Jose Raul Palafox/: 1960/ signed by Pricilla Zaldivar RN at 03/18/2017 12:37 PM PDTdocumented in this encounter Plan of Treatment Not on filedocumented as of this encounter Visit Diagnoses + + | Diagnosis | + + | ST elevation myocardial infarction involving right coronary artery (HCC) Acute | | myocardial infarction of inferoposterior wall, initial episode of care | + + documented in this encounter"
--- OUTSIDE RECORDS SUMMARY | ~2020-03-18 | XMS | Encounter Summary ---
Demographics + + + | Address | [address] | | | [place] [address] | + + + | Home Phone | | + + + | Preferred Language | Unknown | + + + | Marital Status | | + + + | Spiritism Affiliation | Unknown | + + + | Race | White | + + + | Ethnic Group | Not or | + + + Author + + + | Author | [facility] | | | and [place] | + + + | Organization | [facility] | | | [...] Team Providers + +------+ + | Care Service Tech Name | Role | Phone | + +------+ + | Gary Gomez MD | PCP | | + +------+ + Encounter Details +--------+ + + + + | Date | Type | Department | Care Team | Description | +--------+ + + + + | 02/09/ | Orders Only | [facility] [place] | Geovanny Conn | | | 2019 | | [facility] [address] | MD Dean [address] | | | | | [place] [place], | [address] [place] | | | | | [place] [address] | [place] [address] | | | | | [phone] | [phone] | | | | | | | [...]
--- OUTSIDE RECORDS SUMMARY | ~2020-03-18 | XMS | Encounter Summary ---
Demographics + + + | Address | [address] | | | [place] [address] | + + + | Home Phone | | + + + | Preferred Language | Unknown | + + + | Marital Status | | + + + | Scientology Affiliation | Unknown | + + + [...] Team Providers + +------+ + | Care Hydraulic Controls Technician Name | Role | Phone | [...] | Services | Medicine and | Numbness of | Jameson Jewell MD | Santosh Jewell MD [address] | | | Required | Rehabilitatio | right hand | [address] | | | | n | Right hand | [address] | [place], | | | | | weakness | [place], | [place] [address] | | | | | S/P cervical | [place] [address] | Phone: | | | | | spinal | Phone: | [phone] | | | | | fusion | [phone] | Fax: | | | | | Procedures | Fax: | [phone] | | | | | DOS 01/08/20 | [phone] | | | | | | RUE NCS/EMG | | | +--------+ + + + + + Reason for Visit + + + | Reason | Comments | + + + | Numbness | RUE | + + + Evaluate & Treat (Routine) +--------+--------+ + + + + | Status | Reason | Specialty | Diagnoses / | Referred By | Referred To | | | | | Procedures | Contact | Contact | +--------+--------+ + + + + | Closed | | Physical | Diagnoses | Gomez, | Jameson Espinoza | | | | Medicine and | Right arm | Jungwyn | Santosh Jewell MD [address] | | | | Rehabilitatio | pain Right | MD Garry | [address] | | | | n | arm numbness | [address] | [place], | | | | | | [facility] [place] | [place] [address] | | | | | | [address] [place] | Phone: | | | | | | [place], [place] | [phone] | | | | | | [address] | Fax: | | | | | | Phone: | [phone] | | | | | | [phone] | | | | | | | Fax: | | | | | | | [phone] | | +--------+--------+ + + + + Encounter Details +--------+---------+ + + + | Date | Type | Department | Care Team | Description | +--------+---------+ + + + | 04/29/ | Office | [facility] [place] | Jameson Espinoza, | Numbness of right | | 2019 | Visit | PHYSIATRY [address] | MD [address] | hand (Primary Dx); | | | | [address] | [place], [place] | Right hand weakness; | | | | [place], [place] | [address] | S/P cervical spinal | | | | [address] | | fusion | | | | [phone] | | | +--------+---------+ + + + [...] of this encounter Patient Instructions Patient Instructions Shanon Amaya, Program Clinician - 11/21/2019 9:20 AM PDTX-rays have been requested. Please go to the x-ray department after your appointment to complete these x-rays. The results of your x-rays will be reviewed at your next appointment. If you r x-rays demonstrate any emergent results, the clinic will contact you. Please attend your scheduled nerve conduction study and EMG appointment. Nerve conduction studies and EMG require a great deal of time to complete. If you will be unable to make your appointment please contact the clinic at least one full business day issa or to your appointment . Missed appoints without cancellation will only be re scheduled once. Children under the age of 13 are not permitted in the room during the nerve study. If acco mpanied by children under the age of 13, they will need an adult to supervise them, while th ey wait in the lobby. Prior to your appointment wash the skin [...] encounter Progress Notes Jameson Espinoza MD - 11/21/2019 9:20 AM PDTFormatting of this note might be different fro m the original. Physical Medicine & Rehabilitation Consult Referring Provider: Gary Gomez, * Date of Service: 11/21/19 Patient ID: Jose Raul Palafox is a 58 y.o. male with right hand numbness. HPI Jose Raul Palafox reports that he started having numbness in the right upper extremity, ab out 4 months ago. Her symptoms have been worsening overtime. Jose Raul Palafox reports a h istory of fall about 4 months ago trying to step over dogs. Jose Raul Palafox has history o f anterior fusion from C3 through C7 and hardware for posterior fusion from C3 through T2 w ithout pedicle screws at C7. He reports neck pain. He rate his neck pain as 6 on a numerical pain scale. His upper extremity numbness is continuous. His upper extremity numbness is strongest over the third through fifth digit. His upper extremity numbness is exacerbated by: all activity. His upper extremity numbness is reduced by: nothing His numbness does wake him from sleep. Jose Raul Palafox reports weakness. She reports dropping objects. Jose Raul Palafox denies taking blood thinning medications such as Coumadin or heparin. He denies having implanted electronic device such as a pacemaker. He denies a history of diabetes. He reports a history of thyroid disease. He denies a history of rheumatoid arthritis. He reports a history of chemical exposure. He denies a history of frequent alcohol consumption. Jose Raul Palafox reports that they have had previous nerve conduction study. Completed in 2012 with chronic C6 radiculopathy. Jose Raul Palafox had cervical fusion in 2014. Past Medical History Past Medical History: Diagnosis Date Acute bronchitis Acute upper respiratory infection, unspecified Allergic rhinitis, unspecified Anxiety Asthma CAD in [place] artery Cervical radiculopathy at C6 Right on [...] site unspecified Thoracic radiculopathy 08/17/2016 Thyroid disease Tobacco use Past Surgical History Past Surgical History: Procedure Laterality Date CARDIAC CATHERIZATION N/A 11/03/2016 Procedure: CV Cor Angio; Surgeon: Latonia Olson MD; Location: [facility] CV LAB CARDIAC CATHERIZATION N/A 11/03/2016 Procedure: CV Cor Angio; Surgeon: Latonia Olson MD; Location: [facility] CV [facility] CARDIAC CATHERIZATION N/A 12/23/2016 Procedure: CV LHC; Surgeon: Latonia Olson MD; Location: [facility] CV [facility] CERVICAL SPINE SURGERY N/A 01/07/2015 Procedure: C3-4, C4-5, C5-6, C6-7, Anterior Cervical Discectomy w/ Fusion and Plating, Pos terior Fusion at C3-4, C4-5, C5-6, C6-7, C7-T1, and T1-2; Surgeon: Aleksander Stern DO; Loc ation: [facility] MAIN OR CHOLECYSTECTOMY, LAPAROSCOPIC 12/2010 Dr. Skaggs; [place], OR EGD AND COLONOSCOPY 01/2014 Benign Polyps FINGER FRACTURE SURGERY Left 2003 middle finger crush injury; tip replacement FINGER SURGERY Left 1986 thumb attachment KNEE ARTHROSCOPY Right LUMBAR SPINE SURGERY Right 02/26/2019 Procedure: Right L2-L3, L3-L4, L4-L5 Decompressive Laminectomy; Surgeon: Denton harrell MD; Location: [facility] MAIN OR ROTATOR CUFF REPAIR Left 1995 ULNAR TUNNEL RELEASE Left 1995 Family History: Family History Problem Relation Age of Onset Heart disease Father Asthma Father Emphysema Father Thyroid disease Father goiter Arthritis Father Heart failure Father Diabetes Father Heart attack Father 62 Heart disease Mother Diabetes Mother Arthritis Mother Bleeding problems Mother Gout Mother Hypertension Mother Heart failure Mother Other (see comment) Mother lung prob Coronary artery disease Mother No known problems Child No known problems Child Arthritis Paternal Grandfather Arthritis Paternal Grandmother Hypertension Maternal Grandfather Diabetes Maternal Grandfather Heart attack Maternal Grandfather 55 Hypertension Maternal Grandmother Seizures Paternal Aunt Hypertension Paternal Aunt Diabetes Paternal Aunt Early Paternal Aunt 19 Hypertension Maternal Uncle Alcohol abuse Maternal Uncle Heart disease Maternal Uncle Heart attack Maternal Uncle Crohn's disease Sister Heart failure Sister Other (see comment) Sister lung prob Crohn's disease Sister Heart disease Sister Asthma Sister Allergic rhinitis Sister Thyroid disease Sister Sleep apnea Sister Diabetes Sister Elevated lipids Sister Hypertension Sister Other (see comment) Sister seasonal affective disorder Liver disease Sister PTSD Sister Other (see comment) Sister sjorgren's syndrome, Diverticulosis, Myasthenia Gravis GERD Sister Heart failure Sister Asthma Sister Heart failure Maternal Aunt No known problems Child No known problems Child Heart attack Brother Heart attack Brother Social History: Social History Socioeconomic History Marital status: Spouse name: Iman Palafox Number of children: 4 Years of education: Not on file Highest education level: GED or equivalent Occupational History 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 Sexual activity: Never Allergies: Allergies Allergen Reactions Doxycycline Anaphylaxis, Nausea Only, Swelling, Dermatitis, Headache and Unknown Throat swelling, HTN Adhesive & Tape Rash Albuterol Anxiety Caused severe anxiety. Aspirin Other (See Comments) Ulceration of stomach Latex Itching and Rash Medications: Outpatient Encounter Medications as of 11/21/2019 Medication Sig Dispense Refill aspirin 81 MG tablet Take 81 mg by mouth Daily. atorvaSTATin (LIPITOR) 80 MG tablet Take 1 tablet by mouth nightly. Do not take for a w [place] 30 tablet 11 buPROPion (WELLBUTRIN SR) 150 mg 12 hr tablet Take 150 mg by mouth 2 times daily. busPIRone (BUSPAR) 10 MG tablet Take 15 mg by mouth Twice daily as needed for Anxiety. cyclobenzaprine (FLEXERIL) 10 mg tablet Take 10 mg by mouth Twice daily as needed for Muscle spasms. DULoxetine (CYMBALTA) [address] capsule Take 60 mg by mouth nightly. famotidine (PEPCID) 20 mg tablet Take 20 mg by mouth 2 times daily. fluticasone-salmeterol (ADVAIR) 500-50 mcg/puff diskus inhaler Inhale 1 puff into the l ungs Twice Daily. [DISCONTINUED] gabapentin (NEURONTIN) 300 mg capsule Take 900 mg by mouth 3 times daily . Three tablets three times a day guaiFENesin [...] 10 mg by mouth Daily. nicotine (NICORETTE) 2 mg gum CHEW 1 PIECE BY MOUTH EVERY ONE TO TWO HOURS NEEDED FO R 6 WEEKS, THEN CHEW 1 PIECE EVERY TWO TO FOUR HOURS FOR 3 WEEKS, THEN CHEW 1 PIECE EVERY FO UR TO EIGHT HOURS FOR 3 WEEKS DIRECTED, CHEW AND HOLD IN CHEEK PER PACKAGE USER'S GUIDE I NSTRUCTIONS nitroglycerin (NITROSTAT) 0.[address] 1 tablet under the tongue every 5 jennifer frieda as needed for Chest pain. 25 tablet 1 omeprazole (PRILOSEC) 20 mg capsule Take 20 mg by mouth 2 times daily. oxygen Inhale 2 L into the lungs continuous. prasugrel (EFFIENT) 10 mg TABS Take 1 tablet by mouth Daily. 90 tablet 3 pregabalin (LYRICA) 50 MG capsule Take 50 mg by mouth 3 times daily. rOPINIRole (REQUIP) 0.5 MG tablet Take 0.5 mg by mouth nightly as needed (restless leg) . triamcinolone (KENALOG) 0.1% cream Apply topically 2 times daily. No facility-administered encounter medications on file as of 11/21/2019. Review of Systems:ROS GENERALLY: No fever, no night sweats, no anemia, no fatigue, no recent profound weight ch anges. EYES: No eye problems, no use of corrective lenses, no eye injury, no double vision, no bl indness. EARS, NOSE, AND THROAT: No changes in taste or smell, no hearing difficulty, no ringing in the ears, no ear drainage, no dizziness, no voice changes, no difficulty swallowing, no sig nificant snoring, no sleep apnea, no sinus problems, no major dental work. NEUROLOGICALLY:The patient has no numbness/pain of arms, no numbness/pain of legs, no awake with numbness/pain, no weakness, no muscle aching, no coordination difficulty, no change in walk, no head injury, no neck injury, no back injury, no pain in neck, no pain in back, no stroke, no fainting spells, no loss of consciousness, no tremor/shaking, no seizures, no hea daches, no migraine, no memory loss, no speech difficulty, no confusion and no numbness of f cosme. PSYCHIATRIC: No depression, no sleep disorders, no anxiety, no bipolar disorder, no psycho tic episodes. CARDIOVASCULAR: No heart attacks, no heart murmur, no heart fluttering, no chest pain, no ankle swelling. LUNG DISEASE: No shortness of breath, no cough, no tuberculosis, no bloody cough, no asth ma, no emphysema/COPD. GASTROINTESTINAL: No bowel disease, no nausea or vomiting, no rectal bleeding, no constipa tion, no stool incontinence, no liver disease, no gallbladder disease, no abdominal pain, no ulcers. KIDNEY DISEASE: No urinary frequency, no painful or difficult urination, no incontinence. ENDOCRINE: No diabetes, no thyroid disease, no osteopenia or osteoporosis, no breast drain age. SKIN: No breast lumps, no skin changes, no rashes, no itches. HEMATOLOGIC/LYMPHATIC: No enlarged lymph nodes, no easy or unusual bleeding, no personal h istory of cancer. RHEUMATOLOGIC: No joint arthritis, no rheumatoid arthritis. Vitals: 11/21/19 0949 BP: 92/59 Pulse: 56 PainSc: 9 Objective Physical Exam: General Appearance: Alert and Oriented to person, place, time and situation, no distress. HEENT: PERRL, conjunctiva clear, no scleral icterus, EOM's intact Heart: Regular Rate and Rhythm Lungs: No audible wheezing or crackles. Abdomen: Non-distended Back: Symmetric Extremities: No clubbing, cyanosis or edema in all four extremities Neurological: Cranial Nerves: Intact Speech: Normal Sensory: Decreased sensation fingertip of right upper extremity to monofilament touch. Subj ective decreased sensation right C8 dermatome versus ulnar distribution to monofilament touc h. Motor: Normal 5/5 strength in both upper extremities including biceps, triceps, wrist dorsiflexion , finger abduction, and L hand instructor adjunct surgical technician. 4 R hand instructor adjunct surgical technician 4 R finger abduction 4 R triceps 4+ R elbow flexion * Reflexes: 2+ normal and symmetric over the biceps, and brachioradialis of both upper extremities. 1+ B triceps Tinel's test negative over the median nerve at right wrists. Tinel's test negative over ulnar nerve at guyon's canal Tinel's test positive over the median nerve at left wrist. Tinel's test positive over the ulnar nerve at guyon's canal. Tinel's test significantly positive at right ulnar nerve at cubital tunnel Scar across left elbow consistent with ulnar nerve transposition surgery Spurling test is not possible due to history of multilevel fusion Severe limitation with range of motion Posterior surgical scar Significant dystonia in right scalene complex Asymmetry of neck position with lateral shift to the right Costovertebral maneuver positive to the right Mild but diffuse atrophy of forearm muscles worse on the right Thenar atrophy on the right Database: Cervical xray completed on 06/23/17 were reviewed personally by me, I concur with the res ults as reported by the Radiologist. Assessment 1. Numbness of right hand 2. Right hand weakness 3. S/P cervical spinal fusion Plan 1. The differential diagnosis for Jose Raul Palafox's symptoms included, but are not limi misael to: ulnar neuropathy, right C8 radiculopathy or thoracic outlet syndrome. Order for cervical xray was placed today to evaluate interval change since last imaging com pleted on 2016. Jose Raul Palafox has history of cervical fusion in 2014. Jose Raul Khan Lucy key reports recent fall inciting symptoms. Today we discussed treatment options for neck pain includes cervical steroid injection and possibly surgical treatment options. Reviewed potent ial risks and outcomes when it comes to surgical treatment options. Jose Raul Palafox had n erve study completed in 2013 demonstrating chronic C6 radiculopathy. 2. Today we reviewed that the nerve study will hopefully help us localize the origin of sy mptoms. Today we discussed how to prepare for nerve conduction study and EMG. We discussed not wea ring lotion and bringing a short sleeve shirt to wear. We discussed the process of the test , which involves small shocks to the nerves and that the study may include pin sticks, witho ut shock into the muscles. 3. Jose Raul Palafox will return to the clinic for nerve conduction study and EMG to [place] for the differential diagnosis above. Jose Raul Palafox has history of left ulnar neuropathy status post ulnar nerve transpositi on. He reports that current right arm symptoms are very similar. He has C8 versus ulnar di stribution numbness in his right upper extremity. He also has associated weakness in the ri ght upper extremity. We will evaluate for ulnar neuropathy in the right upper extremity. He has weakness of the right triceps. He has significant cervical pathology history including anterior C3-7 and p osterior C3-T2 fusions. His current symptoms started after a fall. New herniation, hardwar e failure, new neural foraminal narrowing or spinal stenosis could be causing current sympto ms. He will have updated neck x-ray. He has dystonia on exam of right scalene complex. Co stovertebral maneuver is positive on the right. He may have right thoracic outlet syndrome started with fall, cervical strain and subsequent cervical dystonia. He will return to the clinic for nerve conduction study which will hopefully help to localize origin of symptoms a nd guide future treatment. Nerve conduction study and EMG cannot diagnose or rule out spina l stenosis. Updated advanced cervical imaging may be required and considered in the future. He had prior right upper extremity nerve conduction study with me, approximately 7 years ag o, which demonstrated chronic right C6 radiculopathy. These radicular changes are still lik ninfa present on EMG study. Thank you for allowing me to be involved in the care of your patient. If you have any ques tions regarding the care of your patient please don't hesitate to call. Approximately 45 minutes was spent face to face with Jose Raul Palafox, over half of which was spent formulating and discussing their medical treatment plan. I, Jameson Espinoza MD personally performed the services described in this documentation, as scribed by in my presence, ALTON Reese and are both accurate and complete. Jameson Espinoza MD - 11/21/2019 Cc: Tommy Gomez MD documented in this en counter Plan of Treatment + + +--------+ + + | Name | Type | Priori | Associated Diagnoses | Order Schedule | | | | ty | | | + + +--------+ + + | * [facility] [place] | Outpatient | Routin | Numbness of right | Ordered: 11/21/2019 | | Physiatry - AMB | Referral | e | hand Right hand | | | Referral | | | weakness S/P | | | | | | cervical spinal | | | | | | fusion | | + + +--------+ + + documented as of this encounter Visit Diagnoses + + | Diagnosis | + + | Numbness of right hand - Primary | + + | Right hand weakness Muscle weakness (generalized) | + + | S/P cervical spinal fusion Arthrodesis status | + + documented in this encounter
--- OUTSIDE RECORDS SUMMARY | ~2020-03-18 | XMS | Encounter Summary ---
Demographics + + + | Address | [address] | | | [place] [address] | + + + | Home Phone [...] Team Providers + +------+ + | Care [place] Hydraulic Press Operator Name | Role | Phone | + +------+ + | Gary Gomez MD | PCP | | + +------+ + Reason for Visit +--------+--------+ + | Reason | Onset | Comments | | | Date | | +--------+--------+ + | Other | 11/16/ | records sent | | | 2016 | | +--------+--------+ + Encounter Details +--------+ + + + + | Date | Type | Department | Care Team | Description | +--------+ + + + + | 11/16/ | Telephone | [facility] | Latonia Olson, | Other (records sent) | | 2017 | | CARDIOLOGY [address] | MD [address] | | | | [place], | [place], [place] | | | | | [place] [address] | [address] | | | | | [phone] | | | +--------+ + + + [...] Telephone Encounter - Diana Wilson RN - 11/16/2016 3:39 PM PDTOrder for rehab along w ith faxes that were previously sent, sent again to Dr Gomez at [facility] [phone] ........... ................................Diana Wilson RN on 11/16/16 at 15:40 documented in this encounter Plan of Treatment Not on filedocumented as of this encounter Visit Diagnoses Not on filedocumented in this encounter"
--- OUTSIDE RECORDS SUMMARY | ~2020-03-18 | XMS | Encounter Summary ---
Demographics + + + | Address | [address] | | | [place] [address] | + + + | Home Phone | | + + + | Preferred Language | Unknown | + + + | Marital Status | | + + + | Pentecostal Affiliation | Unknown | + + + | Race | White | + + + | Ethnic Group | Not or | + + + Author + + + | Author | [facility] | | | and [place] | + + + | Organization | [facility] | | | [...] Team Providers + +------+ + | Care Rail Loader Name | Role | Phone | + +------+ + | Gary Gmoez MD | PCP | | + +------+ + Reason for Visit + + + | Reason | Comments | + + + | Follow-up | Discuss surgical options | + + + Evaluate & Treat [...] | | | | | region | [address] [place] | | | | | | [address] [place] | [place], [place] | | | | | | [place], [place] | [address] Phone: | | | | | | [address] | [phone] | | | | | | Phone: | Fax: | | | | | | [phone] | [phone] | | | | | | Fax: | | | | | | | [phone] | | +--------+--------+ + + + + Encounter Details +--------+---------+ + + + | Date | Type | Department | Care Team | Description | +--------+---------+ + + + | 01/22/ | Office | [facility] [place] | Denton Barakat | Spinal stenosis of | | 2019 | Visit | NEUROSURGERY [address] | MD Olivier [address] | lumbar region with | | | | [address] | [address] [place] | neurogenic | | | | [place], [place] | [place] [address] | claudication | | | | [address] | [phone] | (Primary Dx); | | | | [phone] | | Chronic obstructive | | | | | | pulmonary disease, | | | | | | unspecified COPD | | | | | | type (HCC); ST | | | | | | elevation myocardial | | | | | | infarction (STEMI), | | | | | | unspecified artery | | | | | | (HCC) | +--------+---------+ + + + Social History [...] + + + | Blood Pressure | 104/66 | 01/22/2019 8:35 AM | | | | | PDT | | + + + + + | Pulse | 77 | 01/22/2019 8:35 AM | | | | | [...] + + + + | Weight | 106.1 kg (234 lb) | 01/22/2019 8:35 AM | | | | | PDT | | + + + + + | Height | 188 cm (6' 2") | 01/22/2019 8:35 AM | | | | | PDT | | + + + + + | Body Mass Index | 30.04 | 01/22/2019 8:35 AM | | | | | [...] encounter Patient Instructions Patient Instructions Dina Olivares, Online Advertising Manager - 01/22/2019 8:15 AM PDTIt was a pleasure to see you today. Here is what we discussed. - Let pain be your guide. If you are doing an activity that starts causing you pain back of f for a couple of days and ease back into it slowly. We don't want you taking any risks that do not need to be taken. - We would like you to obtain surgical clearance from both your primary care doctor and you r windows systems architect. Please call our office once you have discussed this with them. - Also continue to work on being nicotine free in order to be eligible for surgery. - If your symptoms worsen or if you have any further questions or concerns please give our office a call to discuss this and a possible follow up appointment. T documented in this encounter Progress Notes Denton Barakat MD - 01/22/2019 8:15 AM PDT Denton Barakat MD [address] [place] [address], [address] [place] [address] PHONE: FAX: NEUROSURGERY HISTORY AND PHYSICAL EXAMINATION CHIEF COMPLAINT: Chief Complaint Patient presents with Follow-up Discuss surgical options HISTORY OF PRESENT ILLNESS: The patient is a 58 y.o. male with the complaint of back [...] some symptoms down his left leg as well. He and his state that they stopped smoking a week ago. He is using constant oxygen. He is also using nitroglycerin occasionally, and isosorbide daily since his heart attack and s tent placement in 2016. PAST MEDICAL HISTORY: Past Medical History: Diagnosis Date Acute bronchitis Acute upper respiratory infection, unspecified Allergic rhinitis, unspecified Anxiety Asthma CAD in [place] artery Cervical radiculopathy at C6 Right on [...] Cor Angio; Surgeon: Latonia Olson MD; Location: [facility] CV LAB CARDIAC CATHERIZATION N/A 11/03/2016 Procedure: CV Cor Angio; Surgeon: Latonia Olson MD; Location: [facility] CV LAB CARDIAC CATHERIZATION N/A 12/23/2016 Procedure: CV LHC; Surgeon: Latonia Olson MD; Location: [facility] CV LAB CERVICAL SPINE SURGERY N/A 01/07/2015 [...] nightly. Do not take for a w samish 30 tablet 11 buPROPion (WELLBUTRIN SR) 150 [...] The patient reports that he quit smoking 7 days ago. His smoking use included cigarettes. He has a 5.00 pack-year smoking history. He has never used smokeless tobacco. He reports alex t he drinks alcohol. He reports that he has current or past drug history. Drug: Marijuana. F requency: 2.00 times per week. He uses edibles [...] SYSTEMS: GENERALLY: No fever, + night sweats, no anemia, no fatigue, + recent profound weight munoz ges. EYES: No eye problems, no impaired sight, + use of corrective lenses, no eye injury, no do uble vision, no transient blindness. EARS, NOSE, AND THROAT: No changes in taste or smell, no hearing difficulty, + ringing in the ears, no ear drainage, no ear injury, + dizziness, no voice changes, + difficulty swallo wing, no significant snoring, no sleep apnea/CPAP, no sinus problems, + major dental work. NEUROLOGICALLY: Please see the review of systems discussed above in the history of present illness. In addition, He has numbness and pain of arms, numbness and pain of legs, awake w ith numbness/pain, weakness, muscle aching, change in walk, pain in back, headaches, and maday ed. PSYCHIATRIC: No depression, + difficulty sleeping, no anxiety, no bipolar disorder. CARDIOVASCULAR: No heart attacks, no heart murmur, + heart fluttering, + chest pain, no an [...] no rheumatoid arthritis. PHYSICAL EXAMINATION: Blood pressure 104/66, pulse 77, height 1.88 m (6' 2"), weight 106.1 kg (234 lb). Body mass index is 30.04 kg/m. GENERAL: Jose Raul Palafox is in [...] has no apparent deficits with short or machine long goods helper memory. CRANIAL NERVES: II: Acuity is intact. [...] OR 2+ IS NORMAL) REFLEX: RIGHT LEFT BICEPS 0-1 0-1 BRACHIORADIALIS 0-1 0-1 TRICEPS 0-1 0-1 PATELLAR 2with spread 2with spread ACHILLES 2 [...] ows mild canal narrowing at L4-5 in mkwc-gu-sjqnjxhv canal narrowing at L3-4. Axial section s were not obtained of L2-3 but measuring canal diameter on the sagittal images suggests alex t he is at or very slightly over 10 mm. 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 Spinal stenosis of lumbar region with neurogenic claudication Yes Chronic obstructive pulmonary disease, unspecified COPD type ([facility]) ST elevation myocardial infarction (STEMI), unspecified artery ([facility]) GENERAL DIAGNOSES: Past Medical History: Diagnosis Date Acute bronchitis Acute upper respiratory infection, unspecified Allergic rhinitis, unspecified Anxiety Asthma CAD in [place] artery Cervical radiculopathy at C6 Right on EMG/NCS in 01/04 Chronic bronchitis with COPD (chronic obstructive pulmonary disease) ([facility]) Chronic low back pain Chronic neck pain COPD (chronic obstructive pulmonary disease) ([facility]) Diverticulitis Emphysema of lung ([facility]) Gastroenteritis Headache Hepatitis C Hernia, hiatal History [...] Tobacco use PLAN: Jose Raul Palafox presented todayfor re-evaluation of an ongoing back issue and his neurol ogic problems. The patient has symptomatic lumbar spinal [...] ce of angina. He would like to be considered for surgery as discussed and would like us to seek authoriza tion and clearance for the operation.. I, Denton Barakat MD, personally performed the services described in this documentatio n, as scribed by ALTON Nielsen in my presence, and it is both accurate and com plete. Denton Barakat MD 01/22/19 ELECTRONICALLY SIGNED BY: Denton Barakat MD, 01/22/2019 9:28 documented in this encounter Plan of Treatment Not on filedocumented as of this encounter Visit Diagnoses + + | Diagnosis | + + | Spinal stenosis of lumbar region with neurogenic claudication - Primary Spinal | | stenosis, lumbar region, with neurogenic claudication | + + | Chronic obstructive pulmonary disease, unspecified COPD type (HCC) | + + | ST elevation myocardial infarction (STEMI), unspecified artery (HCC) | + + documented in this encounter
--- OUTSIDE RECORDS SUMMARY | ~2020-03-18 | XMS | Encounter Summary ---
Demographics + + + | Address | [address] | | | [place] [address] | + + + | Home Phone | | + + + | Preferred Language | Unknown | + + + | Marital Status | | + + + | Congregation Affiliation | Unknown | + + + [...] Team Providers + +------+ + | Care Finance Assistant Name | Role | Phone | [...] Description | +--------+---------+ + + + | 03/25/ | Office | [facility] | Latonia Olson, | ST elevation | | 2017 | Visit | [facility] | MD [address] | myocardial | | | | REHABILIT[address] | [place] | infarction involving | | | | [address] | [address] | right coronary | | | | [place] [address] | | artery (HCC) | | | | [phone] | | | +--------+---------+ + + + [...] encounter Progress Notes Pricilla Zaldivar RN - 03/25/2017 12:45 PM PDT [facility] [address] [facility] [facility] [address] Cardiac Rehab Date: 03/25/2017 Patient Information Patient Name: Jose Raul Palafox Date of : 1960 Age: 56 y.o. Encounter Diagnoses Code Name Primary? 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 Yes Any Changes in Medications? No 01/19/17 gabapentin. Any Problems to Report? No 03/16/17 it is very smokey in [place], he had been short of sergio ath. 03/18/17 started on prednisone and abx. Breathing much better. Pain Level: 04/03 leg, T-spine, neck Home exercise: Limited walking [...] min Electronically signed by: Pricilla Zaldivar RN, 03/25/2017 10:21 Patient Name: Jose Raul Palafox/: 1960/ signed by Pricilla Zaldivar RN at 03/25/2017 10:21 AM PDTdocumented in this encounter Plan of Treatment Not on filedocumented as of this encounter Visit Diagnoses + + | Diagnosis | + + | ST elevation myocardial infarction involving right coronary artery (HCC) Acute | | myocardial infarction of inferoposterior wall, initial episode of care | + + documented in this encounter"
--- OUTSIDE RECORDS SUMMARY | ~2020-03-18 | XMS | Encounter Summary ---
Demographics + + + | Address | [address] | | | [place] [address] | + + + | Home Phone [...] Team Providers + +------+ + | Care Telephone Surveyor Name | Role | Phone | + +------+ + | Gary Gomez MD | PCP | | + +------+ + Reason for Visit +--------+--------+ + | Reason | Onset | Comments | | | Date | | +--------+--------+ + | Other | 03/05/ | | | | 2014 | | +--------+--------+ + Encounter Details +--------+ + + + + | Date | Type | Department | Care Team | Description | +--------+ + + + + | 03/05/ | Telephone | [facility] [place] | Cecil Hensley, | Other | | 2014 | | NEUROSURGERY [address] | PA-C [address] | | | | | [address] | [address] [place] | | | | | [place], [place] | [place] [address] | | | | | [address] | [phone] | | | | | [phone] | | | +--------+ + + + [...] Encounter - Marilu Tafoya Cert MA - 03/06/2015 2:55 PM PDTI called and let Peña browning know that Cecil does not have any first hand issues, himself. He said Okay. MARILU TAFOYA elephone EncounCecil Sinha PA - 03/06/2015 2:38 PM PDTI am not sure what his question is specif zay in reference to. He brought up concerns he had with "accusations/conversations that o ccurred" between [facility] and [facility] regarding [facility]. He asked me to address this in my last office note visit, which I did, in my way. I was very neutral. I don't have first hand knowledge and there is nothing in his chart that is related to his concerns. He called for a refill and it was granted. Beyond this I am unaware of what it is he is speaking of. Patient has a very odd affect and I believe some psychological issues which I think are invo lved in his judgement and actions.Electronically signed by YUNIER Walsh at 5 2:43 PM PDTTelephone Encounter - Marilu Tafoya Cert MA - 03/06/2015 9:08 AM PDTI called and talked to Jose Raul. He says that Cecil told him when he saw him last that we "have been h aving troubles with the [facility]". He wanted to know what types of troubles our office has been h aving? Cecil, Can you elaborate on this for me? MARILU TAFOYA elephone Lois Monson - 03/05/2015 4:14 PM PDTPatient called and would like to discuss the pr oblems he is having with [facility]. He would like a call back at . documented in this en counter Plan of Treatment Not on filedocumented as of this encounter Visit Diagnoses Not on filedocumented in this encounter
--- OUTSIDE RECORDS SUMMARY | ~2020-03-18 | XMS | Encounter Summary ---
Demographics + + + | Address | [address] | | | [place] [address] | + + + | Home Phone | | + + + | Preferred Language | Unknown | + + + | Marital Status | | + + + | Cheondoism Affiliation | Unknown | + + + [...] Team Providers + +------+ + | Care Motorsports Technician Name | Role | Phone | [...] Description | +--------+---------+ + + + | 01/14/ | Office | [facility] | Latonia Olson, | ST elevation | | 2017 | Visit | MED CTR [facility] | MD [address] | myocardial | | | | REHABILITATION [address] | [place] | infarction involving | | | | [address] [place] | [address] | right coronary | | | | [place] [address] | | artery (HCC) | | | | [phone] | | | +--------+---------+ + + + [...] encounter Progress Notes Pricilla Zaldivar RN - 01/14/2017 10:00 AM PDT [facility] [address] [facility] [address] Cardiac Rehab Date: 01/14/2017 Patient Information Patient Name: Jose Raul Palafox Date of : 1960 Age: 56 y.o. Encounter Diagnoses Code Name Primary? 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 Yes Any Changes in Medications? No Yes, gabapentin,but hasn't received from the [facility] yet. Any Problems to Report? No Pain Level: [...] into media section every . Appointment duration: 55 min Electronically signed by: Pricilla Zaldivar RN, 01/14/2017 11:45 Patient Name: Jose Raul Palafox/: 1960/ signed by Pricilla Zaldivar RN at 01/14/2017 11:58 AM PDTdocumented in this encounter Plan of [...]
--- OUTSIDE RECORDS SUMMARY | ~2020-03-18 | XMS | Encounter Summary ---
Demographics + + + | Address | [address] | | | [place] [address] | + + + | Home Phone [...] + + + | Author | [facility] | | | and [place] | + + + | Organization | [facility] | | [...] Providers + +------+ + | Care Electrician Bus Name | Role | Phone | + +------+ + | Gary Gomez MD | PCP | | + +------+ + Reason for Visit +--------+--------+ + | Reason | Onset | Comments | | | Date | | +--------+--------+ + | Other | 09/27/ | | | | 2019 | | +--------+--------+ + Encounter Details +--------+ + + + + | Date | Type | Department | Care Team | Description | +--------+ + + + + | 09/27/ | Telephone | [facility] [place] | MitaAltagracia baig, | Other | | 2019 | | [facility] | Aide | | | | | THERAPY [address] | | | | | [address] [place] | | | | | | [address] | | | | | | [phone] | | | +--------+ + + + [...] this encounter Miscellaneous Notes Telephone Encounter - Altagracia Vivas Aide - 09/27/2018 1:14 PM Nick called and left a message asking if Peres can give him a call documented in this encounter Plan of Treatment Not on filedocumented as of this encounter Visit Diagnoses Not on filedocumented in this encounter"
--- OUTSIDE RECORDS SUMMARY | ~2020-03-18 | XMS | Encounter Summary ---
Demographics + + + | Address | [address] | | | [place] [address] | + + + | Home Phone [...] + + + | Author | [facility] | | | and [place] | + + + | Organization | [facility] | | [...] Team Providers + +------+ + | Care Rock Crusher Name | Role | Phone | + +------+ + | Gary Gomez MD | PCP | | + +------+ + Encounter Details +--------+ + + + + | Date | Type | Department | Care Team | Description | +--------+ + + + + | 12/10/ | Orders Only | [facility] | Sucharda, Cecil E, | Hepatitis C virus | | 2015 | | NEUROSURGERY [address] | PA-C [address] | infection, | | | | [address] | [address] [place] | unspecified | | | | [place], [place] | [place] [address] | chronicity (Primary | | | | [address] | [phone] | Dx); Restless leg | | | | [phone] | | syndrome; COPD | | | | | | (chronic obstructive | | | | | | pulmonary disease) | | | | | | (HCC); Asthma, | | | | | [...] of this encounter Plan of Treatment + +------+--------+ + + | Name | Type | Priori | Associated Diagnoses | Order Schedule | | | | ty | | | + +------+--------+ + + | CBC with | Lab | Routin | Hepatitis C virus | 1 Occurrences | | Differential | | e | infection, | starting 12/10/2014 | | | | | unspecified | until 12/10/2015 | | | | | chronicity Restless | | | | | | leg syndrome COPD | | | | | | (chronic obstructive | | | | | | pulmonary disease) | | | | | | (HCC) Uncomplicated | | | | | | asthma Thyroid | | | | | | disease | | | | | | [...] | | | use | | + +------+--------+ + + | Basic Metabolic | Lab | Routin | Hepatitis C virus | 1 Occurrences | | Panel | | e | infection, | starting 12/10/2014 | | | | | unspecified | until 12/11/2015 | | | | | chronicity Restless | | | | | | leg syndrome COPD | | | | | | (chronic obstructive | | | | | | pulmonary disease) | | | | | | (HCC) Uncomplicated | | | | | | asthma Thyroid | | | | | | disease | | | | | | [...] | | | use | | + +------+--------+ + + documented as of this encounter Results ECG 12 lead (01/02/2015 [...] and V2. | | + + + XR Chest PA and Lateral (12/31/2014 12:48 PM PDT) + + | Specimen | + + | | + + + + + | Narrative | Performed At | + + + | PA AND LATERAL CHEST 12/31/2014 12:48 PM CLINICAL HISTORY: PRE | [facility] | | OPERATIVE EXAM COMPARISON: Thoracic MRI December 11 FINDINGS: The | [facility] | | cardiomediastinal silhouette and pulmonary vasculature are | [facility] | | unremarkable. Minimal basilar reticular opacity favors atelectasis. | - IMAGING | | The lungs are clear elsewhere without pneumothorax or pleural | | | effusion. There is multilevel thoracic spondylosis. Surgical | | | anchors project over the left scapular glenoid. IMPRESSION - | | | 1. PROBABLE MINIMAL BASILAR ATELECTASIS. NO CONCLUSIVE EVIDENCE | | | OF ACTIVE DISEASE IN THE CHEST. Dictated and Signed by: Anderson | | | MD Oscar Electronically signed: 12/31/2014 3:14 PM | | + + + + + | Procedure Note | + + | [facility], Rad Results In - 12/31/2014 3:18 PM PDT PA AND LATERAL CHEST 12/31/2014 12:48 PM | | | | CLINICAL HISTORY: PRE OPERATIVE EXAM | | | | COMPARISON: Thoracic MRI December 11 | | | | FINDINGS: The cardiomediastinal silhouette and pulmonary vasculature are | | unremarkable. Minimal basilar reticular opacity favors atelectasis. The lungs | | are clear elsewhere without pneumothorax or pleural effusion. There is | | multilevel thoracic spondylosis. Surgical anchors project over the left | | scapular glenoid. | | | | IMPRESSION - | | | | 1. PROBABLE MINIMAL BASILAR ATELECTASIS. NO CONCLUSIVE EVIDENCE OF ACTIVE | | DISEASE IN THE CHEST. | | | | Dictated and Signed by: Anderson Moore MD | | Electronically signed: 12/31/2014 3:14 PM | + + + + + + + | Performing | Address | City/State/Zipcode | Phone Number | | Organization | | | | + + + + + | [facility] | [address] | [place] | [phone] | | [facility] | | [address] | | | - IMAGING | | | | + + + + + PTT (12/31/2014 12:47 PM PDT) + +-------+ + + + | Component | Value | Ref Range | Performed | Pathologist | | | | | At | Signature | + +-------+ + + + | aPTT | 31 | 22 - 36 seconds | [facility] | | | | | [...] + | [facility] | [address] | [place] | [phone] | | [facility] | | [address] | | | - LABORATORY | | | | + + + + + Protime INR (12/31/2014 12:47 PM PDT) + + + + + + | Component | Value | Ref Range | Performed | Pathologist | | | | | At | Signature | + + + + + + | Prothrombin | 13.9 | 11.3 - 13.9 | [facility] | | | Time | | seconds | [facility] | | | | | | MEDICAL | | | | | | CENTER - | | | | | | LABORATORY | | + + + + + + | INR | 1.07Comment: Usual Oral | 0.90 - 1.10 | [facility] | | | | Anticoagulation Range: | | [facility] | | | | 2.0 - 3.0High | | MEDICAL | | | | Level Oral | | CENTER - | [...] + | [facility] | [address] | [place] | [phone] | | [facility] | | [address] | | | - LABORATORY | | | | + + + + + documented in this encounter Visit Diagnoses + + | Diagnosis | + + | Hepatitis C virus infection, unspecified chronicity - Primary | + + [...]
--- OUTSIDE RECORDS SUMMARY | ~2020-03-18 | XMS | Encounter Summary ---
Demographics + + + | Address | [address] | | | [place] [address] | + + + | Home Phone [...] + + + | Author | [facility] | | | and [place] | + + + | Organization | [facility] | | | [...] Team Providers + +------+ + | Care Can Filler Name | Role | Phone | + +------+ + | Gary Gomez MD | PCP | | + +------+ + Reason for Visit + +--------+ + | Reason | Onset | Comments | | | Date | | + +--------+ + | Appointment | 10/03/ | | | | 2019 | | + +--------+ + Encounter Details +--------+ + + + + | Date | Type | Department | Care Team | Description | +--------+ + + + + | 10/03/ | Telephone | [facility] | Altagracia Vivas, | Appointment | | 2019 | | [facility] | Aide | | | | | THERAPY [address] | | | | | [address] [place], [place] | | | | | | [address] | | | | | | [phone] | | | +--------+ + + + [...] Telephone Encounter - Altagracia Vivas Aide - 10/03/2018 10:30 AM PDTCalled and spoke to Reji collins and jacquelin apt as he needed to see his drSaritha documented in this encounter Plan of Treatment Not on filedocumented as of this encounter Visit Diagnoses Not on filedocumented in this encounter"
--- OUTSIDE RECORDS SUMMARY | ~2020-03-18 | XMS | Encounter Summary ---
Demographics + + + | Address | [address] | | | [place] [address] | + + + | Home Phone | | + + + | Preferred Language | Unknown | + + + | Marital Status | | + + + | Confucianism Affiliation | Unknown | + + + | Race | White | + + + | Ethnic Group | Not or | + + + Author + + + | Author | [facility] | | | and [place] | + + + | Organization | [facility] | | | [...] Team Providers + +------+ + | Care Glue Mounter Operator Name | Role | Phone | + +------+ + | Gary Gomez MD | PCP | | + +------+ + Encounter Details +--------+ + + + + | Date | Type | Department | Care Team | Description | +--------+ + + + + | 02/14/ | Preadmit | [facility] | Denton Barakat | Preoperative | | 2019 | Visit | [facility] | MD Olivier [address] | clearance (Primary | | | | CLINIC [address] | [address] [place] | Dx); Hepatitis C | | | | [place], [place] | [place] [address] | virus infection | | | | [address] | [phone] | without hepatic | | | | | | coma, unspecified | | | | | | chronicity; Restless | | | | | | leg syndrome; | | | | | | Chronic obstructive | | | [...] + | CULTURE, MRSA | Routin | 02/14/2019 | Preoperative | Results for this | | | e | 12:22 PM | clearance | procedure are in the | | | | PDT | | results section. | + +--------+ + + + | CBC WITH | Routin | 02/14/2019 | Hepatitis C virus | Results for this | | DIFFERENTIAL | e | 12:21 PM | infection without | procedure are in the | | | | PDT | hepatic coma, | results section. | | | | | unspecified | | | | | | chronicity Restless | | | | | | leg syndrome | | | | | | Chronic obstructive | | | | | | pulmonary disease, | | | | | | unspecified COPD | | | | | | type (HCC) Asthma, | | | | | | unspecified asthma | | | | | | severity, | | | | | | unspecified whether | | | | | | complicated, | | | | | | unspecified whether | | | | | | persistent | | | | | | Hypothyroidism, | | | | | | unspecified type | | | | | | Mixed hyperlipidemia | | | | | | Diverticulitis | | | | | | Low back pain, | | | | | | unspecified back | | | | | | pain laterality, | | | | | | unspecified | | | | | | chronicity, with | | | | | | sciatica presence | | | | | | unspecified | | | | | | Essential | | | | | | hypertension | | | | | | Osteoarthritis of | | | | | | spine with | | | | | | radiculopathy, | | | | | | lumbar region | | + +--------+ + + + | BASIC METABOLIC | Routin | 02/14/2019 | Hepatitis C virus | Results for this | | PANEL | e | 12:21 PM | infection without | procedure are in the | | | | PDT | hepatic coma, | results section. | | | | | unspecified | | | | | | chronicity Restless | | | | | | leg syndrome | | | | | | Chronic obstructive | | | | | | pulmonary disease, | | | | | | unspecified COPD | | | | | | type (HCC) Asthma, | | | | | | unspecified asthma | | | | | | severity, | | | | | | unspecified whether | | | | | | complicated, | | | | | | unspecified whether | | | | | | persistent | | | | | | Hypothyroidism, | | | | | | unspecified type | | | | | | Mixed hyperlipidemia | | | | | | Diverticulitis | | | | | | Low back pain, | | | | | | unspecified back | | | | | | pain laterality, | | | | | | unspecified | | | | | | chronicity, with | | | | | | sciatica presence | | | | | | unspecified | | | | | | Essential | | | | | | hypertension | | | | | | Osteoarthritis of | | | | | | spine with | | | | | | radiculopathy, | | | | | | lumbar region | | + +--------+ + + + documented in this encounter Results Culture, MRSA (02/14/2019 12:22 PM PDT) + + + + + [...] + + | Culture | 3+ Coagulase positive | | [facility] | | | | Staphylococcus | | [facility] | | | | | | [facility] | | | | | | CENTER - | | | | | | LABORATORY | | + + + + + + + + | Specimen | + + | Tissue - Both | | anterior nares (body | | structure) | + + + + + + + | Performing | Address | City/State/Zipcode | Phone Number | | Organization | | | | + + + + + | [facility] | [address] | [place] | [phone] | | [facility] | | [address] | | | - LABORATORY | | [...] | | Cells | | | [facility] | | [...] | Basophils | | K/uL | [facility] | | | | | | MEDICAL | | | | | | CENTER - | | | | | | LABORATORY | | + + + + + + | Absolute | 0.03 | 0.00 - 0.03 | [facility] | | | Immature | | K/uL | [facility] | | | Granulocyte | | | MEDICAL | | | s | | | CENTER - | | | | | | LABORATORY | | + + + + + + | % nRBC | 0 | 0 - 2 per 100 | [facility] | | | | | WBCs | [facility] | | | | | | MEDICAL | | | | | | CENTER - | | | | | | LABORATORY | | + + + + + + | Absolute | 0.00 | 0.00 - 0.01 | [facility] | | | nRBC | | K/uL | [facility] | | | | | | MEDICAL [...] [address] | [place] | [phone] | | [facility] | | [address] | | | - LABORATORY | | | | + + + + + Basic Metabolic Panel (02/14/2019 12:21 PM PDT) [...] 19 | 9 - 23 mg/dL | [facility] | | | | | | [facility] | | | | | | MEDICAL | | | | | | CENTER - | | | | | | LABORATORY | | + + + + + + | Creatinine | 1.01 | 0.70 - 1.30 | [facility] | | | | | mg/dL | [facility] | | | | | | MEDICAL | | | | | | CENTER - | | | | | | LABORATORY | | + + + + + + | eGFR, | >60Comment: GLOMERULAR | >=60 | [facility] | | | non- | FILTRATION | mL/min/1.73m2 | [facility] | | | [facility] | RATE,ESTIMATED | | MEDICAL | | | | mL/min/1.49f9Oech than | | CENTER - | | [...] [address] | [place] | [phone] | | [facility] | | [address] | | | - LABORATORY | | | | + + + + + documented in this encounter Visit Diagnoses + + | Diagnosis | + + | Preoperative clearance - Primary Preoperative examination, unspecified | + + | Hepatitis C virus infection without hepatic coma, unspecified chronicity | + + | Restless [...]
--- OUTSIDE RECORDS SUMMARY | ~2020-03-18 | XMS | Encounter Summary ---
Demographics + + + | Address | [address] | | | [place] [address] | + + + | Home Phone | | + + + | Preferred Language | Unknown | + + + | Marital Status | | + + + | Zoroastrian Affiliation | Unknown | + + + | Race | White | + + + | Ethnic Group | Not or | + + + Author + + + | Author | [facility] | | | and [place] | + + + | Organization | [facility] | | [...] Team Providers + +------+ + | Care Line Assembler Name | Role | Phone | [...] Description | +--------+---------+ + + + | 01/19/ | Office | [facility]LAY | [place], | ST [address] | | 2017 | Visit | [facility] | MD [address] | myocardial | | | | REHABILITATION [address] | [place] | infarction involving | | | | [address] [place] | [address] | right coronary | | | | [place] [address] | | artery (HCC) | | | | [phone] | | | +--------+---------+ + + + [...] encounter Progress Notes Pricilla Zaldivar RN - 01/19/2017 10:00 AM PDT [facility] [address] [facility] [address] Cardiac Rehab Date: 01/19/2017 Patient Information Patient Name: Jose Raul Palafox [...] min Electronically signed by: Pricilla Zaldivar RN, 01/19/2017 10:41 Patient Name: Jose Raul Palafox/: 1960/ signed by Pricilla Zaldivar RN at 01/19/2017 10:42 AM PDTdocumented in this encounter Plan of [...]
--- OUTSIDE RECORDS SUMMARY | ~2020-03-18 | XMS | Encounter Summary ---
Demographics + + + | Address | [address] | | | [place] [address] | + + + | Home Phone | | + + + | Preferred Language | Unknown | + + + | Marital Status | | + + + | Church Affiliation | Unknown | + + + | Race | White | + + + | Ethnic Group | Not or | + + + Author + + + | Author | [facility] | | | and [place] | + + + | Organization | [facility] | | [...] Team Providers + +------+ + | Care Embroiderer Hand Name | Role | Phone | + +------+ + | Gary Gomez MD | PCP | | + +------+ + Encounter Details +--------+ + + + + | Date | Type | Department | Care Team | Description | +--------+ + + + + | 12/25/ | Orders Only | [facility] | [facility]ron | Lumbar radiculopathy | | 2019 | | PHYSIATRY [address] | (Primary Dx); Other | | | | [address] | [place] | spondylosis with | | | | [place], [place] | [address] | radiculopathy, | | | | [address] | | lumbar region | | | | [phone] | | | +--------+ + + + [...] filedocumented as of this encounter Results FL MARY Lumbar Transforaminal (01/08/2019 1:42 PM [...] | | unspecified | + + | Other spondylosis with radiculopathy, lumbar region | + + documented in this encounter"
--- OUTSIDE RECORDS SUMMARY | ~2020-03-18 | XMS | Encounter Summary ---
Demographics + + + | Address | [address] | | | [place] [address] | + + + | Home Phone | | + + + | Preferred Language | Unknown | + + + | Marital Status | | + + + | Mu-Ism Affiliation | Unknown | + + + | Race | White | + + + | Ethnic Group | Not or | + + + Author + + + | Author | [facility] | | | and [place] | + + + | Organization | [facility] | | | [...] Team Providers + +------+ + | Care Drafter Geophysical Name | Role | Phone | + [...] + + + + | 10/31/ | Hospital | [facility] | Gary Gomez | Osteoarthritis of | | 2019 | Encounter | MED CTR MRI [address] | [address] | spine with | | | | [place], | [address] | radiculopathy, | | | | [place] [address] | [place], [place] | lumbar region | | | | [phone] | [address] | | | | | | | [...] + +--------+ + + + | MRI LUMBAR SPINE WO | Routin | 10/31/2018 | Osteoarthritis of | Results for this | | CONTRAST | e | 8:14 AM | spine with | procedure are in the | | | | PDT | radiculopathy, | results section. | | | | | lumbar region | | + +--------+ + + + documented in this encounter Results MRI Lumbar Spine wo Contrast (10/31/2018 8:14 AM PDT) + + | Specimen | + + | | + + + + + | Narrative | Performed At | + + + | TECHNIQUE: MRI of the lumbar spine with sequences to include | [facility] | | sagittal T1, sagittal STIR, axial T1, axial T2, sagittal T2, and | | | coronal T2. CLINICAL INFORMATION: Osteoarthritis of spine with | | | radiculopathy, lumbar region COMPARISON: Radiographs dated | | | 02/20/2015 and MRI 08/21/2013 FINDINGS: The lowest functional | | | disc level is presumed to represent L5/S1. The conus medullaris | | | terminates at L1. The cauda equina appears normal. Mild chronic | | | endplate changes at T12-L1. Moderate chronic endplate changes at | | | L5-S1. T11/T12: Mild disc height loss. Mild concentric disc | | | bulge and mild bilateral facet arthrosis. Mild to moderate focal | | | spinal canal stenosis. No significant neural foraminal stenosis. | | | Progressed from prior. T12/L1: Mild disc height loss. Mild | | | concentric disc bulge resulting in mild spinal canal stenosis. No | | | neural foraminal stenosis. Progressed from prior. L1/2: Mild to | | | moderate disc height loss. Moderate concentric disc bulge with | | | small osteophyte formation. Mild bilateral facet arthrosis. Mild | | | to moderate focal spinal canal stenosis. Mild bilateral neural | | | foraminal stenosis, left greater than right. Progressed from prior. | | | L2/3: Mild concentric disc bulge with small osteophyte formation | | | with prominence at the foraminal regions. Mild bilateral facet | | | arthrosis and ligamentum flavum hypertrophy. Mild focal spinal | | | canal stenosis. Mild bilateral neural foraminal stenosis. Similar | | | in appearance compared with prior. L3/4: Mild disc height loss. | | | Mild to moderate concentric disc bulge, bilateral ligament of | | | flavum hypertrophy, and bilateral facet arthrosis resulting in mild | | | to moderate spinal canal stenosis and mild left/moderate right neural | | | foraminal stenosis. The disc causes slight mass effect on the | | | exiting right nerve root. Similar in appearance compared with prior. | | | L4/5: Mild concentric disc bulge, severe bilateral facet | | | arthrosis, and mild bilateral ligamentum flavum hypertrophy resulting | | | in mild to moderate focal spinal canal stenosis and moderate | | | left/mild right neural foraminal stenosis. There is significant | | | progression of the facet arthrosis compared with prior. L5/S1: | | | Severe disc height loss. Mild concentric disc bulge with osteophyte | | | formation and moderate bilateral facet arthrosis resulting in mild | | | spinal canal stenosis. Severe right and moderate to severe left | | | neural foraminal stenosis. There is mass effect on the exiting nerve | | | roots. Progressed from prior. No focal paraspinal soft tissue | | | abnormality. IMPRESSION - Progressive multilevel lumbar | | | spondylosis as detailed above with up to mild to moderate | | | multifactorial spinal canal stenosis at L1-L2, L3-L4, and L4-L5. | | | Varying degrees of neural foraminal stenosis, the most prominent | | | findings include moderate right L3-L4 , moderate left L4-L5, and | | | severe right/moderate to severe left L5-S1. Chronic endplate | | | changes are most notable at L5-S1 with severe disc height loss. | | | Progressive multilevel facet arthrosis, severe at L4-L5. Dictated | | | and Signed by: Marcelino Hernandez MD Electronically signed: 10/31/2018 | | | 2:23 PM | | + + + + + | Procedure Note | + + | Elliott Vegas Results In - 10/31/2018 2:27 PM PDT | | TECHNIQUE: MRI of the lumbar spine with sequences to include sagittal T1, | | sagittal STIR, axial T1, axial T2, sagittal T2, and coronal T2. | | | | CLINICAL INFORMATION: Osteoarthritis of spine with radiculopathy, lumbar region | | | | COMPARISON: Radiographs dated 02/20/2015 and MRI 08/21/2013 | | | | FINDINGS: | | | | The lowest functional disc level is presumed to represent L5/S1. | | | | The conus medullaris terminates at L1. The cauda equina appears normal. | | | | Mild chronic endplate changes at T12-L1. Moderate chronic endplate changes at | | L5-S1. | | | | T11/T12: Mild disc height loss. Mild concentric disc bulge and mild bilateral | | facet arthrosis. Mild to moderate focal spinal canal stenosis. No significant | | neural foraminal stenosis. Progressed from prior. | | | | T12/L1: Mild disc height loss. Mild concentric disc bulge resulting in mild | | spinal canal stenosis. No neural foraminal stenosis. Progressed from prior. | | | | L1/2: Mild to moderate disc height loss. Moderate concentric disc bulge with | | small osteophyte formation. Mild bilateral facet arthrosis. Mild to moderate | | focal spinal canal stenosis. Mild bilateral neural foraminal stenosis, left | | greater than right. Progressed from prior. | | | | L2/3: Mild concentric disc bulge with small osteophyte formation with prominence | | at the foraminal regions. Mild bilateral facet arthrosis and ligamentum flavum | | hypertrophy. Mild focal spinal canal stenosis. Mild bilateral neural foraminal | | stenosis. Similar in appearance compared with prior. | | | | L3/4: Mild disc height loss. Mild to moderate concentric disc bulge, bilateral | | ligament of flavum hypertrophy, and bilateral facet arthrosis resulting in mild | | to moderate spinal canal stenosis and mild left/moderate right neural foraminal | | stenosis. The disc causes slight mass effect on the exiting right nerve root. | | Similar in appearance compared with prior. | | | | L4/5: Mild concentric disc bulge, severe bilateral facet arthrosis, and mild | | bilateral ligamentum flavum hypertrophy resulting in mild to moderate focal | | spinal canal stenosis and moderate left/mild right neural foraminal stenosis. | | There is significant progression of the facet arthrosis compared with prior. | | | | L5/S1: Severe disc height loss. Mild concentric disc bulge with osteophyte | | formation and moderate bilateral facet arthrosis resulting in mild spinal canal | | stenosis. Severe right and moderate to severe left neural foraminal stenosis. | | There is mass effect on the exiting nerve roots. Progressed from prior. | | | | No focal paraspinal soft tissue abnormality. | | | | | | IMPRESSION - | | Progressive multilevel lumbar spondylosis as detailed above with up to mild to | | moderate multifactorial spinal canal stenosis at L1-L2, L3-L4, and L4-L5. | | | | Varying degrees of neural foraminal stenosis, the most prominent findings | | include moderate right L3-L4 , moderate left L4-L5, and severe right/moderate to | | severe left L5-S1. | | | | Chronic endplate changes are most notable at L5-S1 with severe disc height loss. | | Progressive multilevel facet arthrosis, severe at L4-L5. | | | | Dictated and Signed by: Marcelino Hernandez MD | | Electronically signed: 10/31/2018 2:23 PM | + + + +---------+ + + | Performing | Address | City/State/Zipcode | Phone Number | | Organization | | | | + +---------+ + + | [facility] | | | | + +---------+ + + documented in this encounter Visit Diagnoses + + | Diagnosis | + + | Osteoarthritis of spine with radiculopathy, lumbar region | + + documented in this encounter"
--- OUTSIDE RECORDS SUMMARY | ~2020-03-18 | XMS | Encounter Summary ---
Demographics + + + | Address | [address] | | | [place] [address] | + + + | Home Phone [...] Team Providers + +------+ + | Care Collar Baster Name | Role | Phone | + [...] Description | +--------+---------+ + + + | 01/28/ | Office | [facility] CLAY | [place], | [address] | | 2017 | Visit | [facility] | MD [address] | myocardial | | | | REHABILITATION [address] | [place] | infarction involving | | | | [address] | [address] | right coronary | | | | [place] [address] | | artery (HCC) | | | | [phone] | | | +--------+---------+ + + + [...] encounter Progress Notes Pricilla Zaldivar RN - 01/28/2017 10:00 AM PDT [facility]ATION [address] [facility] [address] Cardiac Rehab Date: 01/28/2017 Patient Information Patient Name: Jose Raul Palafox [...] 10 cigs/day. He will get book for joellen sue. Continue monitored exercise. Any abnormal vital signs or rhythm strips will be reported in progress note. Please see vital signs record, exercise record and rhythm strip scanned into media section every . Appointment duration: 60 min Electronically signed by: Pricilla Zaldivar RN, 01/28/2017 13:19 Patient Name: Jose Raul Palafox/: 1960/ signed by Pricilla Zaldivar RN at 01/28/2017 1:21 PM PDTdocumented in this encounter Plan of [...]
--- OUTSIDE RECORDS SUMMARY | ~2020-03-18 | XMS | Encounter Summary ---
Demographics + + + | Address | [address] | | | [place] [address] | + + + | Home Phone | | + + + | Preferred Language | Unknown | + + + | Marital Status | | + + + | Adventist Affiliation | Unknown | + + + [...] Providers + +------+ + | Care Timber Watchman Name | Role | Phone | + [...] Description | +--------+---------+ + + + | 02/09/ | Office | ASYA CLAY | [place], | [facility] [address] | | 2017 | Visit | [facility] C[facility]AC | MD [address] | myocardial | | | | REHABILITATION [address] | [place] | infarction involving | | | | [address] [place] [place] | [address] | right coronary | | | | [place] [address] | | artery (HCC) | | | | [phone] | | | +--------+---------+ + + + [...] encounter Progress Notes Pricilla Zaldivar RN - 02/09/2017 10:[address] [facility] CARDIAC REHABILITATION [address] [facility] [address] Cardiac Rehab Date: 02/09/2017 Patient Information Patient Name: Jose Raul Palafox Date of : 1960 Age: 56 y.o. Encounter Diagnoses Code Name Primary? 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 Yes Any Changes in Medications? No 01/19/17 gabapentin. Any Problems to Report? No Pain Level: 8-9/10 leg, T-spine, neck Home exercise: Limited walking [...] min Electronically signed by: Pricilla Zaldivar RN, 02/09/2017 11:49 Patient Name: Jose Raul Palafox/: 1960/ signed by Pricilla Zaldivar RN at 02/09/2017 11:53 AM PDTdocumented in this encounter Plan of [...]
--- OUTSIDE RECORDS SUMMARY | ~2020-03-18 | XMS | Encounter Summary ---
Demographics + + + | Address | [address] | | | [place] [address] | + + + | Home Phone [...] + + + | Author | [facility] | | | and [place] | + + + | Organization | [facility] | | | [...] Team Providers + +------+ + | Care Cardiothoracic Icu Rn Name | Role | Phone | + +------+ + PCP | Unavailable | + +------+ + Encounter Details +--------+ + + + + | Date | Type | Department | Care Team | Description | +--------+ + + + + | 07/27/ | Hospital | [facility] | | | | 2008 | Encounter | MED CTR EMERGENCY | | | | | | [place] [address] | | | | | | [place] | | | | | | [address] | | | | | | [phone] | | | +--------+ + + + [...]
--- OUTSIDE RECORDS SUMMARY | ~2020-03-18 | XMS | Encounter Summary ---
Demographics + + + | Address | [address] | | | [place] [address] | + + + | Home Phone [...] + + + | Author | [facility] | | | and [place] | + + + | Organization | [facility] | | | and [...] Team Providers + +------+ + | Care Trade Show Manager Name | Role | Phone | + +------+ + PCP | Unavailable | + +------+ + Encounter Details +--------+ + + + + | Date | Type | Department | Care Team | Description | +--------+ + + + + | 12/25/ | Hospital | [facility] | [place], | | | 2010 | Encounter | MED CTR EMERGENCY | [address] | | | | | CENTER [address] | [facility] | | | | | [place] | [place] [address] | | | | | [address] | [phone] | | | | | [phone] | | | +--------+ + + + [...]
--- OUTSIDE RECORDS SUMMARY | ~2020-03-18 | XMS | Encounter Summary ---
Demographics + + + | Address | [address] | | | [place] [address] | + + + | Home Phone | | + + + | Preferred Language | Unknown | + + + | Marital Status | | + + + | Christian Affiliation | Unknown | + + + | Race | White | + + + | Ethnic Group | Not or | + + + Author + + + | Author | [facility] | | | and [place] | + + + | Organization | [facility] | | | [...] Team Providers + +------+ + | Care Dormitory Keeper Name | Role | Phone | + [...] | +--------+ + + + + | 12/23/ | Hospital | [facility] | Latonia Gallardo, | Unstable angina | | 2017 - | Encounter | MED CTR ICU [address] | MD [address] | ([facility]) | | | | [place], | [place] | | | 12/24/ | | [place] [address] | [id number] | | | 2016 | | [phone] | | | +--------+ + + + [...] + + + | Blood Pressure | 125/80 | 12/24/2016 8:00 AM | | | | | PDT | | + + + + + | Pulse | 81 | 12/24/2016 8:00 AM | | | | | PDT | | + + + + + | Temperature | 36.3 C (97.3 F) | 12/24/2016 8:00 AM | | | | | PDT | | + + + + + | Respiratory Rate | 16 | 12/24/2016 8:00 AM | | | | | PDT | | + + + + + | Oxygen Saturation | 94% | 12/24/2016 8:00 AM | | | | | PDT | | + + + + + | Inhaled Oxygen | - | - | | | Concentration | | | | + + + + + | Weight | 99.7 kg (219 lb 12.8 | 12/24/2016 6:00 AM | | | | oz) | [...] be sent to Dr. Gomez at the [facility] to consider switching the patient to Eff [...] longer present Confirmed by LATONIA GALLARDO MD ([id number]) on 12/23/2016 1:17:54 PM CK Total Collection [...] the affected wrist straigh t. Call the internal sales who did your procedure as soon as possible. DIET: cardiac diet FOLLOW-UP: Follow up with Whitney the week of the 10 of January. Time spent on discharge planning: less than [address] Gomez please consider change to Effient 10 mg a day. Patient wonders if Zan is chong ing him breathless. Electronically signed by Latonia Gallardo MD at 11/2016 4:18 PM PDTdocumented in this encounter Discharge [...] the affected wrist straigh t. Call the internal sales who did your procedure as soon as possible. Other Concerns Call the internal sales who did your procedure if you have: Any of these Signs of Infection: Redness Fever higher than 101.5 degrees F or 38.6 degrees C Change in the bruise or lump. Numbness in your arm or wrist. Severe pain that is not relieved by Tylenol. Follow-up Care Continue your prescribed medications unless instructed otherwise. Follow-up with your primary health care provider and internal sales after your procedure, as instructed. If you have questions or concerns about your cardiac catheterization procedure, call the number below. [phone] documented in this encounter Medications at Time [...] tablet under | 25 | 1 | //20 | | | (NITROSTAT) 0.4 mg | [...] fr om the original. Admission H&P Referring Provider:[facility] Dr Gomez Primary Shorthand Reporter: Whitney Reason for Admission: Unstable Angina and [...] of c hest pain while at the [facility]. The pain was substernal in location and radiated to both axilla a nd down both arms, to the xyphoid process, and to the back. He describes the pain as "crushi ng, ripping, and sharp" in quality. He says that at its most severe, the pain was a 14-15/10 . Bill was taken [facility] the [facility] where his RCA was 100% occluded. This was stented with DE S stents. He experienced a stent thrombosis and was returned to the [facility]. A stent was placed and IVUS was performed. He was given IC integrelin. He had no further ischemia. He developed post MA pericarditis. He was started on colchicine and [...] nightly. Do not take for a w mi'kmaq 30 tablet 11 busPIRone (BUSPAR) 15 mg [...] 1 tablet by mouth 2 times daily. (Pa tient taking differently: Take 50 mg by mouth [...] reactions to iodine contrast agent or sedatives. assisted risk s include re-blockage (restenosis) and stent [...] (HCC)Post-Procedure Diagnose(s): ASHD (arteriosclerot ic heart disease) [facility] LEFT CARDIAC CATHETERIZATION AND CORONARY INTERVENTION REPORT PATIENT NAME: Jose Raul Maldonado DATE OF : 1960 DATE OF PROCEDURE: 12/23/2016 PRIMARY CARE PROVIDER: Tommy Gomez MD LOUVER MORTISER OPERATOR: Latonia Gallardo MD, [facility], [facility] PRE-PROCEDURE DIAGNOSIS: Unstable Angina POST-PROCEDURE DIAGNOSIS: PDA [...] for short term risk of or nonfatal MA Revascularization of the presumed culprit artery Revascularization [...] obtained usi ng a micropuncture kit. A 5-[place] Citizen JR4 and JL 3.5 were used to perform angiography. There w as a lesion at the origin of the PDA. The previous stents were wide open. A 6 kazakh AR 1 guide catheter was cannulated into the right coronary artery. A FIT [employer]otec[employer] extra support wire wa s manipulated through the lesion and positioned into the distal vessel. The lesion was pre dilated with 2.5 X 12 balloon. Next, a 3.0 X 12 Promus R[place]TA stent was deployed at the lesion and expanded at 14 royer. Final angiography demonstrated an excellent result with good dista l runoff. A 5 kazakh pigtail was advanced and used to measure [...] Portions of this chart were created with IDMission voice recognition software. Occasional wron g-word or [...] causeing a problem. Reported patient concerns to . Electronically signed by: Shahid Dickerson RN 12/24/2016 [...] 3 12-14 4 15+ 5 lan of Viviane Dozire RN - 12/23/2016 6:14 PM PDTProblem: Patient [...] checks per protocol. No complications lan of Braxton Galaviz RRT - 12/23/2016 6:03 PM PDT Problem: Patient Care Overview (Adult) Goal: Care Team Goals & Evaluation PROBLEM-RELATED GOALS: STRATEGY TO ACHIEVE GOALS: RESTRAINT-RELATED GOALS: STRATEGIES TO ACHIEVE RESTRAINT GOALS: Outcome: Unchanged Goal Evaluation: Jose Raul feels that his breathing is improving since admitted to the [facility] earlier today. He has an "allergy" to albuterol, so Levalbuterol is being used at or s insistence. Peak flows are improving from [...] Outcome: Improving Discharge planning; Bill lives in [place] with his . He is retired. His is disa bled. He was here in October 2016 for STEMI with stent. Had a new stent placed yesterday, sten t total up to 4. At baseline he is independent in ADLs and mobility. He uses home O2, vende d through [facility]. PCP Dr. Gomez at the [facility]. Uses [facility] pharmacy. Has been enrolled in Cardiac Rehab since his October and actually had an appointment today which [...] [address] | [place] | [phone] | | [facility] | | [address] | | | - LABORATORY | | [...] MD | | | | | | ([id number]) on 12/23/2016 | | | | | [...] | | chromogenic agar method | | [facility] | | | [...] ST. | [address] | [place] | [phone] | | [facility] | | [address] | | | - LABORATORY | | | | + + + + + CV CARDIAC PROCEDURE (12/23/2016 8:33 AM PDT) + + | Specimen | + + | | + + + + + | Narrative | Performed At | + + + | Latonia Jewell | | | MD Whitney 12/23/2016 13:13 | | | [facility] | | | LEFT CARDIAC CATHETERIZATION | | | AND | | | CORONARY INTERVENTION REPORT PATIENT NAME: Jose Raul | | | Bill MaldonadoDATE OF : 1960MEDICAL RECORD NUMBER: | | | [id number] OF PROCEDURE: 12/23/2016 | | | | | | PRIMARY CARE PROVIDER: JOS Win | | | MANAGER BASKETBALL: Latonia Gallardo MD, [facility], [facility] PRE-PROCEDURE DIAGNOSIS: | | | Unstable AnginaPOST-PROCEDURE [...] | obtained using a micropuncture kit. A 5-[place] Citizen JR4 and JL 3.5 were | | | used to perform angiography. There was a lesion at the origin of the | | | PDA. The previous stents were wide open. A 6 kazakh AR 1 guide | | | catheter [...] | result with good distal runoff.A 5 kazakh pigtail was advanced and | | | [...] | | | Moderate sedation start time: 07. Moderate sedation stop time: | | | [...] chart were created with | | | IDMission voice recognition software. Occasional wrong-word or | [...] using a | | |micropuncture kit. A 5-[place] Citizen JR4 and JL 3.5 were used to perform | | |angiography. There was a lesion at the origin of the PDA. The | | |previous stents were wide open. A 6 kazakh AR 1 guide catheter | | |was [...] good distal runoff. | | |A 5 kazakh pigtail was advanced and used to measure [...] |Portions of this chart were created with IDMission voice recognition | | |software. Occasional wrong-word [...] + | Diagnosis | + + | Unstable angina (HCC) - Primary Intermediate coronary syndrome | + + | Hypertension Unspecified essential hypertension | + + | Hyperlipidemia Other and unspecified hyperlipidemia | + + documented in this encounter Administered Medications + +--------+---------+------+------+------+ [...] 17 8:05 | | | | | 12/24/16 at 0900, | | AM PDT | | | | | Post-op/Phase II | | | | | | + +-------+ +-------+---+---+ +---+---+ | | | +---+---+ + +-------+ +-------+---+---+ | atorvaSTATin (LIPITOR) tablet | Given | 12/24/19 | 80 mg | | | | 80 mg 80 mg, Oral, NIGHTLY, | | 17 8:13 | | | | | First dose on Joceline 12/23/16 at 2100 | | PM PDT | [...] dose on Tue12/23/16 at 2100 | | AM PDT | [...] | | | | First dose on [facility] 12/23/16 at 0915 | | AM PDT [...] | | | DAILY, First dose on Joceline 12/23/16 | | AM PDT | | [...] | | | Q6H, First dose on Tue12/23/16 at | | | | | | [...] | | +---+---+ + +-------+ +--------+---+---+ | nitroglycerin (NITRO-BID) 2% | Given | 12/24/19 | 1 inch | | | | ointment 1 inch 1 inch, Topical, | | 17 8:30 | | | | | ONCE, Tue12/23/16 at 0830, For 1 | | AM PDT | | | | | dose | | | | | | + +-------+ +--------+---+---+ +---+---+ | | | +---+---+ + +-------+ +--------+---+---+ | nitroglycerin (NITRO-BID) 2% | Given | 12/24/19 | 1 inch | | | | ointment 1 inch 1 inch, Topical, | | 17 3:08 | | | | | EVERY 4 HOURS (6 times per day), | | PM PDT | | | | | First dose (after last reorder) | | | | | | | on Joceline 12/23/16 at 1000, For 2 | | | | | | | doses | | | | | | + +-------+ +--------+---+---+ +-------+ +--------+---+ + | Given | 12/24/19 | 1 inch | | Arm-Left | | | 17 10:10 | | | Upper | | | AM PDT | | | | +-------+ +--------+---+ + + +---+ | | | + +---+ | nitroglycerin (NITROSTAT) SL | | | tablet 0.4 mg 0.4 mg, | | | Sublingual, EVERY 5 MIN PRN, | | | Chest pain, Starting [facility] 12/23/16 | | | at 0850, May [...] PRN, Nausea, | | | Vomiting, Starting [facility] 12/23/16 at | | | 0850, Post-op/Phase [...] chloride 0.9% (NS) | New Bag | 12/24/19 | | 125 | | | infusion at 125 mL/hr, | | 17 6:48 | | mL/hr | | | Intravenous, CONTINUOUS, Starting | | AM PDT | | | | | Joceline 12/23/16 at 0645, For | | | | | | | procedure only, not to exceed 1 | | | | | | | liter., Pre-op | | | | | | + +---------+ +---+-------+---+ +---+---+ | | | +---+---+ + + + +---+-------+---+ | sodium chloride 0.9% (NS) | Continue | 12/24/19 | | 125 | | | infusion at 125 mL/hr, | bag | 17 9:24 | | mL/hr | | | Intravenous, FIXED VOLUME (see | from | AM PDT | | | | | admin instruction), Starting Joceline | transfer | | | | | | 12/23/16 at 0915, For 4 hours, For | | | | | | | procedure only, not to exceed 1 | | | | | | | liter., Pre-op | | | | | | + + + +---+-------+---+ +---+---+ | | | +---+---+ + +-------+ +-------+---+---+ | ticagrelor (BRILINTA) tablet 90 | Given | 12/25/19 | 90 mg | | | | mg 90 mg, Oral, 2 TIMES DAILY, | | 17 8:05 | | | | | First dose on Tue12/23/16 at 2000 | | AM PDT | | | | + +-------+ +-------+---+---+ +-------+ +-------+---+---+ | Given | 12/24/19 | 90 mg | | | | | 17 8:13 | | | | | | PM PDT | | | | +-------+ +-------+---+---+ +---+---+ | | | +---+---+ documented in this encounter
--- OUTSIDE RECORDS SUMMARY | ~2020-03-18 | XMS | Encounter Summary ---
Demographics + + + | Address | [address] | | | [place] [address] | + + + | Home Phone [...] Team Providers + +------+ + | Care Clay Artist Name | Role | Phone | + +------+ + | Gary Gomez MD | PCP | | + +------+ + Reason for Visit + +--------+ + | Reason | Onset | Comments | | | Date | | + +--------+ + | Appointment | 12/25/ | | | | 2019 | | + +--------+ + Encounter Details +--------+ + + + + | Date | Type | Department | Care Team | Description | +--------+ + + + + | 12/25/ | Telephone | [facility] | Zaki Marshall, | Appointment | | 2019 | | PHYSIATRY [address] | PA-C [address] | | | | | [address] | [address] [place] | | | | | [place], [place] | [place] [address] | | | | | [address] | [phone] | | | | | [phone] | | | +--------+ + + + [...] Encounter - Marilu Tafoya Cert MA - 12/26/2018 8:24 AM PDTFormatting of this no te might be different from the original. Zaki Marshall PA-C You 15 hours ago (16:54) Yes, because he hasn't been seen by out dept in >12 months he would need to be seen for ins urance to cover costs of this procedure. Thanks, Zaki I called and updated bill letting him know that he does need to come to his 01/04 appt. MARILU TAFOYA elephone Encounte r - Marilu Tafoya Cert MA - 12/25/2018 3:13 PM PDTBill Haines is scheduled to have injections on 01/08/19 and was wondering if he needs to keep the office visit with you on 01/04? Please advise. Thank you Marilu documented in this encounter Plan of Treatment Not on filedocumented as of this encounter Visit Diagnoses Not on filedocumented in this encounter"
--- OUTSIDE RECORDS SUMMARY | ~2020-03-18 | XMS | Encounter Summary ---
Demographics + + + | Address | [address] | | | [place] [address] | + + + | Home Phone [...] Team Providers + +------+ + | Care Pulley Maintainer Name | Role | Phone | + +------+ + | Gary Gomez MD | PCP | | + +------+ + Reason for Visit + + + | Reason | Comments | + + + | Suture / Staple | | | Removal | | + + + Encounter Details +--------+ + + + + | Date | Type | Department | Care Team | Description | +--------+ + + + + | 01/21/ | Clinical | [facility] [place] | Aleksander Stern, | Encounter for staple | | 2015 | Support | NEUROSURGERY [address] | DO [address] | removal (Primary | | | | [address] | [address] [place], [place] | Dx); S/P cervical | | | | [place] | [address] | spinal fusion | | | | [address] | | | | | | [phone] | | | +--------+ + + + [...] + + + | Blood Pressure | 136/90 | 01/21/2015 1:41 PM | | | | | PDT | | + + + + + | Pulse | 102 | 01/21/2015 1:41 PM | | | | | PDT [...] + + + + | Weight | 107.3 kg (236 lb 8 | 01/21/2015 1:41 PM | | | | oz) | PDT | | + + + + + | Height | 188 cm (6' 2") | 01/21/2015 1:41 PM | | | | | PDT | | + + + + + | Body Mass Index | 30.36 | 01/21/2015 1:41 PM | | | | | PDT [...] documented as of this encounter Progress Notes Cruzito Davis PA - 01/21/2015 2:23 PM PDTI was asked to evaluate this patient's wo und post-staple removal. There some mild erythema extending about an inch and a half on eit her side of his wounds. Minimally warm to touch. There is some serosanguineous type fluid at the staple edges. This fluid was cultured. Patient is afebrile and is having no fever o r chills he had good strength in his upper extremities. The patient will be placed on Cipro 500 mg. One tablet by mouth twice daily. He should have a wound follow-up early part of n ext week. I've instructed them to call us if he had any worsening problems or concerns.Elec tronically signed by YUNIER Jimenez at 01/21/2015 2:25 PM Darleen Tang Cert M A - 01/21/2015 1:55 PM PDTStaples/Sutures removed per protocol. Incision is clean, dry and intact. documented in this encounter Miscellaneous Notes Addendum Note - Cruzito Davis PA - 01/21/2015 2:26 PM PDT Addended by: ASA DAVIS on: 01/21/2015 14:26 Modules accepted: Orders documented in this encounter Plan of Treatment Not on filedocumented as of this encounter Visit Diagnoses + + | Diagnosis | + + | Encounter for staple removal - Primary Encounter for removal of sutures | + + | S/P cervical spinal fusion Arthrodesis status | + + documented in this encounter
--- OUTSIDE RECORDS SUMMARY | ~2020-03-18 | XMS | Encounter Summary ---
Demographics + + + | Address | [address] | | | [place] [address] | + + + | Home Phone [...] + + + | Author | [facility] | | | and [place] | + + + | Organization | [facility] | | [...] Team Providers + +------+ + | Care Intrusion Analyst Name | Role | Phone | + +------+ + | Gary Gomez MD | PCP | | + +------+ + Reason for Visit + + + | Reason | Comments | + + + | Follow-up | | + + + Follow Up (Routine) +--------+--------+ + + + + | Status | Reason | Specialty | Diagnoses / | Referred By | Referred To | | | | | Procedures | Contact | Contact | +--------+--------+ + + + + | Closed | | Cardiology | Diagnoses | Patricia, | Leo Ladd | | | | | Non-ST | Gary | MD Teofilo | | | | | elevation | MD Garry | [address] | | | | | (NSTEMI) | [address] [place] | | | | | myocardial | VIJAYA | [place], [place] | | | | | infarction | [address] [place] | [address] Phone: | | | | | (HCC) ST | [place], [place] | [phone] | | | | | elevation | [address] | Fax: | | | | | (STEMI) | Phone: | [phone] | | | | | myocardial | [phone] | | | | | | infarction | Fax: | | | | | | of | [phone] | | | | | | unspecified | | | | | | | site (HCC) | | | | | | | Chest pain | | | | | | | Procedures | | | | | | | OC - JESSICA PT | | | +--------+--------+ + + + + Encounter Details +--------+---------+ + + + | Date | Type | Department | Care Team | Description | +--------+---------+ + + + | 02/24/ | Office | [facility] | Leo Ladd | Hyperlipidemia, | | 2016 | Visit | CARDIOLOGY [address] | MD Teofilo [address] | unspecified | | | | [place], | [address] [place] | hyperlipidemia type | | | | [place] [address] | [place] [address] | (Primary Dx); | | | | [phone] | [phone] | Essential | | | | | | hypertension; | | | | | | NSTEMI, initial | | | | | | episode of care | | | | | | ([facility]); | | | | | | Postmyocardial | | | | | | infarction syndrome | | | | | | ([facility]); Unstable | | | | | | angina ([facility]); ST | | | | | | elevation myocardial | | | | | | infarction | | | | | | involving right | | | | | | coronary artery | | | | | | ([facility]); Chest pain, | | | | | | unspecified type | +--------+---------+ + + + Social [...] + + + | Blood Pressure | 120/60 | 02/24/2017 11:41 AM | | | | | PDT | | + + + + + | Pulse | 88 | 02/24/2017 11:41 AM | | | | | PDT | | + + + + + | Temperature | - | - | | + + + + + | Respiratory Rate | 16 | 02/24/2017 11:41 AM | | | | | PDT | | + + + + + | Oxygen Saturation | - | - | | + + + + + | Inhaled Oxygen | - | - | | | Concentration | | | | + + + + + | Weight | 99.8 kg (220 lb) | 02/24/2017 11:41 AM | | | | | PDT | | + + + + + | Height | 188 cm (6' 2") | 02/24/2017 11:41 AM | | | | | PDT | | + + + + + | Body Mass Index | 28.25 | 02/24/2017 11:41 AM | | | | | PDT [...] documented as of this encounter Progress Notes Leo Ladd MD - 02/24/2017 12:00 PM PDT PATIENT NAME: Jose Raul Palafox : 1960: AGE: 56 y.o. PRIMARY CARE: Tommy Gomez MD OUTPATIENT FOLLOW UP VISIT Date of Service: 02/24/2017 HISTORY OF PRESENT ILLNESS: Jose Raul Palafox is a 56 y.o. male with a history of coronary artery disease. He had an inferior wall myocardial infarction in October 2016 and had a stent placed in the right chowdary ry artery. He returned with unstable angina in December 2016 and had a stent placed in the post erior descending of the right.. He is being seen today for follow up. About 10 days ago he had an episode of severe precordial and right axillary pain that lasted about 5 minutes. I t resolved after a single nitroglycerin. This was similar to multiple episodes he had exper ienced in the past, prior to his inferior wall myocardial infarction. This was his only epi sode of symptoms since his PDA was stented in December of this year. He has chronic dyspnea due to COPD. He denies orthopnea. He has anxiety and panic attacks He was last seen 2 months ago at which time he was recovering from his posterior descending stenting and was doing well. MEDICAL, SURGICAL, AND PERSONAL HISTORY Past Medical, Surgical, Family, and Social History are reviewed in EPIC. No significant roe CURRENT PROBLEMS Patient Active Problem List Diagnosis [...] nightly. Do not take for a w afognak 30 tablet 11 busPIRone (BUSPAR) 15 mg [...] and Rash ROS OBJECTIVE: PHYSICAL EXAM BP 120/60 | Pulse 88 | Resp 16 | Ht 1.88 m (6' 2") | Wt 99.8 kg (220 lb) | BMI 28.25 k g/m ECG: Normal sinus rhythm with nonspecific T-wave flattening in the inferior limb leads. LAB RESULTS: LIPID Lab Results Component Value [...] HCT 47 11/03/2016 PLT 315 11/03/2016 ASSESSMENT: 1 episode of severe chest pain since coronary stenting was done 2 months ago Coronary artery disease with stents placed in the mid right coronary and in the posterior d escending. Multiple medical problems including COPD and panic disorder PLAN: No change in current medication Return in 6 months Electronically signed by: Job Ladd MD [facility] 02/24/2017 Portions of this chart may have been created with [employer] voice recognition software. Occasi onal wrong-word or [...] | ECG 12 LEAD | Routin | 02/24/2017 | Chest pain, | Results for this | | | e | 12:05 PM | unspecified type | procedure are in the | | | | PDT | | results section. | + +--------+ + + + documented in this encounter Results ECG 12 lead (02/24/2017 12:05 PM PDT) + + + + + + | Component | Value | Ref Range | Performed | Pathologist | | | | | At | Signature | + + + + + + | VENTRICULAR | 79 | BPM | [facility] | | | RATE EKG | | | | | + + + + + + | ATRIAL RATE | 79 | BPM | [facility] | | [...] + + + + | Q-T | 388 | ms | [facility] | | | INTERVAL | | | | | + + + + + + | Q-T | 444 | ms | [facility] | | | INTERVAL | | | | | | (CORRECTED) | | | | | + + + + + + | P WAVE AXIS | 67 | degrees | [facility] | | + + + + + + | QRS AXIS | 26 | degrees | [facility] | | + + + + + + | T AXIS | 25 | degrees | [facility] | | + + + + + + | INTERPRETAT | Normal sinus | | [facility] | | | ION TEXT | rhythmNormal ECGWhen | | | | | | compared with ECG of | | | | | | 23-DEC-2016 | | | | | | 11:08,Nonspecific T wave | | | | | | abnormality has | | | | | | replaced inverted T | | | | | | waves in Inferior | | | | | | leadsConfirmed by | | | | | | SUMMER WESTBROOK, MADELEINE | | | | | | ([id number]) on 03/02/2017 | | | | | | 2:10:28 PM | | | | + + [...] + | Diagnosis | + + | Hyperlipidemia, unspecified hyperlipidemia type - Primary | + + | Essential hypertension Unspecified essential hypertension | + + | NSTEMI, initial episode of care ([facility]) Acute myocardial infarction, subendocardial | | infarction, initial episode of care | + + | 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 | + + | Unstable angina (HCC) Intermediate coronary syndrome | + + | ST elevation myocardial infarction involving right coronary artery ([facility]) Acute | | myocardial infarction of inferoposterior wall, initial episode of care | + + | Chest pain, unspecified type | + + documented in this encounter
--- OUTSIDE RECORDS SUMMARY | ~2020-03-18 | XMS | Encounter Summary ---
Demographics + + + | Address | [address] | | | [place] [address] | + + + | Home Phone [...] Team Providers + +------+ + | Care Travel Attendants Name | Role | Phone | + +------+ + | Gary Gomez MD | PCP | | + +------+ + Reason for Visit + +--------+ + | Reason | Onset | Comments | | | Date | | + +--------+ + | Medication | 11/27/ | | | Recommendations | 2019 | | + +--------+ + Encounter Details +--------+ + + + + | Date | Type | Department | Care Team | Description | +--------+ + + + + | 11/27/ | Telephone | [facility] | Cecil Hensley, | Medication | | 2019 | | NEUROSURGERY [address] | PA-C [address] | Recommendations | | | | [address] | [address] [place] | | | | | [place], [place] | [place] [address] | | | | | [address] | [phone] | | | | | [phone] | | | +--------+ + + + [...] Telephone Encounter - Shannan Garay CMA - 11/27/2018 3:03 PM PDTPatient returned call and information was relayed. TTelephone Encounter - Shannan Garay CMA - 11/27/2018 2:45 PM PDTDerek ordered an epidural steroid injection to be done by Dr. Padron. Called patient to inform him that he would need to continue taking his blood thinning medic ation until we get insurance to approve the injection, which can take a couple weeks. Left v sandra asking for a return call. documented in this encounter Plan of Treatment Not on filedocumented as of this encounter Visit Diagnoses Not on filedocumented in this encounter"
--- OUTSIDE RECORDS SUMMARY | ~2020-03-18 | XMS | Encounter Summary ---
Demographics + + + | Address | [address] | | | [place] [address] | + + + | Home Phone [...] Team Providers + +------+ + | Care Dog Handler Or Trainer Name | Role | Phone | + +------+ + | Gary Gomez MD | PCP | | + +------+ + Reason for Visit +--------+--------+ + | Reason | Onset | Comments | | | Date | | +--------+--------+ + | LABS | 01/23/ | | | | 2019 | | +--------+--------+ + Encounter Details +--------+ + + + + | Date | Type | Department | Care Team | Description | +--------+ + + + + | 01/23/ | Telephone | [facility] [place] | Geovanny Conn | NELY | | 2018 | | [address] | MD Dean [address] | | | | | [place], | [address] [place] | | | | | [place] [address] | [place] [address] | | | | | [phone] | [phone] | | | | | | | [...] this encounter Miscellaneous Notes Telephone Encounter - Edie Campbell Medical Assistant - 01/23/2019 2:12 PM PDTOrders fax ed. elep julio Encounter - Rose Keith RN - 01/23/2019 2:00 PM PDTOrders done .............. ............................Rose Keith RN on 01/23/19 at 14:00 elephone Encount er - Edie Campbell Medical Assistant - 01/23/2019 12:57 PM PDTPatient called back, I [facility] [place]. elephone Encounter - Edie Campbell Medical Assistant - 0 01/23/2019 12:49 PM PDTPatient scheduled for an appointment on 02/07/2019 and is needing a fas ting Lipid panel, CBC and CMP. Please order, thank you. Left for callback. dozane douglas in this encounter Plan of Treatment + +------+--------+ + + | Name | Type | Priori | Associated Diagnoses | Order Schedule | | | | ty | | | + +------+--------+ + + | Comprehensive | Lab | Routin | Essential | Expected: | | Metabolic Panel | | e | hypertension | 01/23/2019, Expires: | | | | | | 01/23/2020 | + +------+--------+ + + | Lipid Panel | Lab | Routin | Hyperlipidemia, | Expected: | | | | e | unspecified | 01/23/2019, Expires: | | | | | hyperlipidemia type | 01/23/2020 | + +------+--------+ + + | CBC with | Lab | Routin | Essential | Expected: | | Differential | | e | hypertension | 01/23/2019, Expires: | | | | | | 01/23/2020 | + +------+--------+ + + documented as of this encounter Visit Diagnoses + + | Diagnosis | + + | Hyperlipidemia, unspecified hyperlipidemia type - Primary | + + | Essential hypertension Unspecified essential hypertension | + + documented in this encounter"
--- OUTSIDE RECORDS SUMMARY | ~2020-03-18 | XMS | Encounter Summary ---
Demographics + + + | Address | [address] | | | [place] [address] | + + + | Home Phone [...] Team Providers + +------+ + | Care Tubing Machine Operator Name | Role | Phone | + +------+ + | Gary Gomez MD | PCP | | + +------+ + Reason for Visit +--------+--------+ + | Reason | Onset | Comments | | | Date | | +--------+--------+ + | Other | 12/10/ | schedule surgery | | | 2014 | | +--------+--------+ + Encounter Details +--------+ + + + + | Date | Type | Department | Care Team | Description | +--------+ + + + + | 12/10/ | Telephone | [facility] | Aleksander Stern, | Other (schedule | | 2014 | | NEUROSURGERY [address] | DO [address] | surgery) | | | | [address] | [address] [place], [place] | | | | | [place], [place] | [address] | | | | | [address] | | | | | | [phone] | | | +--------+ + + + [...] Encounter - Marilu Tafoya Cert MA - 12/10/2014 9:27 AM PDTI called Jose Raul. He h as been scheduled for surgery. MARILU TAFOYA eleAnn Carter - 12/10/2014 8:59 AM PDTPatient returned call to schedule surgery.Electr onically signed by Ann Johnston at 12/10/2014 9:00 AM PDTdocumented in this encounter Plan of Treatment Not on filedocumented as of this encounter Visit Diagnoses Not on filedocumented in this encounter"
--- OUTSIDE RECORDS SUMMARY | ~2020-03-18 | XMS | Encounter Summary ---
Demographics + + + | Address | [address] | | | [place] [address] | + + + | Home Phone [...] Team Providers + +------+ + | Care Falafel Cart Cook Name | Role | Phone | + +------+ + | Gary Gomez MD | PCP | | + +------+ + Reason for Visit + +--------+ + | Reason | Onset | Comments | | | Date | | + +--------+ + | Procedure | 02/23/ | Pre-surgical check-in information. | | | 2018 | | + +--------+ + Encounter Details +--------+ + + + + | Date | Type | Department | Care Team | Description | +--------+ + + + + | 02/23/ | Telephone | [facility] | Denton Barakat | Procedure | | 2018 | | [address] | MD Olivier [address] | (Pre-surgical | | | | [address] | [address] [place] | check-in | | | | [place], [place] | [place] [address] | information. ) | | | | [address] | [phone] | | | | | [phone] | | | +--------+ + + + [...] encounter Miscellaneous Notes Telephone Encounter - Bhargavi Bermeo, Senior Sharepoint Developer - 02/23/2019 8:31 AM PDTAll pres urgical check-in instructions given Surgery date: 02/26/19Tuesday Check-in Time: 0600 (OR Schedule states procedure start time 0745) No solids or liquids after midnight the night before surgery. Follow the cleansing instructions provided beginning the night before surgery after you kevyn wer or bathe. No showering the morning of surgery. Please do not wear jewelry, contact lenses, nail armenian (on fingers or toes), or make-up to surgery check-in. If you have dentures, hearing aids, or glasses please bring the cases with you to check-in. Medications instructions: ASA 81-7 days prior, and Effient (Prasugrel) Surgical Admit Anticipated Disposition reviewed and correct: "Yes Confirmation of procedure/approval: "Yes". Has patient been seen in the ED or had surgery since last seen in our office?: No Confirm local pharmacy: [facility] docum ented in this encounter Plan of Treatment Not on filedocumented as of this encounter Visit Diagnoses Not on filedocumented in this encounter
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
--- OUTSIDE RECORDS SUMMARY | ~2020-03-18 | XMS | Encounter Summary ---
Demographics + + + | Address | [address] | | | [place] [address] | + + + | Home Phone [...] Team Providers + +------+ + | Care Certified Procedural Coder Name | Role | Phone | + +------+ + | Gary Gomez MD | PCP | | + +------+ + Reason for Visit +--------+--------+ + | Reason | Onset | Comments | | | Date | | +--------+--------+ + | Other | 08/29/ | | | | 2019 | | +--------+--------+ + Encounter Details +--------+ + + + + | Date | Type | Department | Care Team | Description | +--------+ + + + + | 08/29/ | Telephone | [facility] [place] | Constantine Villagran, | Other | | 2018 | | [facility] | PT [address] | | | | | [address] | [place], [place] | | | | | [place], [place] | [address] | | | | | [address] | | | | | | [phone] | | | +--------+ + + + [...] Telephone Encounter - Lor Ellington Aide - 08/29/2018 7:33 AM PSTPatient called to [facility] Due to weather. documented in this encounter Plan of Treatment Not on filedocumented as of this encounter Visit Diagnoses Not on filedocumented in this encounter"
--- OUTSIDE RECORDS SUMMARY | ~2020-03-18 | XMS | Encounter Summary ---
Demographics + + + | Address | [address] | | | [place] [address] | + + + | Home Phone | | + + + | Preferred Language | Unknown | + + + | Marital Status | | + + + | Muslim Affiliation | Unknown | + + + | Race | White | + + + | Ethnic Group | Not or | + + + Author + + + | Author | [facility] | | | and [place] | + + + | Organization | [facility] | | [...] Team Providers + +------+ + | Care Clerical Car Checker Name | Role | Phone | + +------+ + | Gary Gomez MD | PCP | | + +------+ + Reason for Visit +--------+--------+ + | Reason | Onset | Comments | | | Date | | +--------+--------+ + | Other | 10/10/ | | | | 2019 | | +--------+--------+ + Encounter Details +--------+ + + + + | Date | Type | Department | Care Team | Description | +--------+ + + + + | 10/10/ | Telephone | [facility] [place] | Khris Gallardo, | Other | | 2018 | | [facility] | Ja Dempsey, PT [address] | | | | THERAPY [address] [place] | | | | | [address] [place], [place] | [place] [address] | | | | | [address] | [phone] | | | | | [phone] | | | +--------+ + + + [...] this encounter Miscellaneous Notes Telephone Encounter - Lcuia Fuentes - 10/10/2018 3:31 PM PDTPlease fill out another t ravel form for [facility] to patient? Patient lost the form he had. Call with any [facility]. Thank you document ed in this encounter Plan of Treatment Not on filedocumented as of this encounter Visit Diagnoses Not on filedocumented in this encounter"
--- OUTSIDE RECORDS SUMMARY | ~2020-03-18 | XMS | Encounter Summary ---
Demographics + + + | Address | [address] | | | [place] [address] | + + + | Home Phone | | + + + | Preferred Language | Unknown | + + + | Marital Status | | + + + | Sabianist Affiliation | Unknown | + + + | Race | White | + + + | Ethnic Group | Not or | + + + Author + + + | Author | [facility] | | | and [place] | + + + | Organization | [facility] | | | [...] Providers + +------+ + | Care Emergency Medicine Nurse Practitioner Name | Role | Phone | + [...] + + | 02/07/ | Office | [facility] | Latonia Olson, | ST elevation | | 2017 | Visit | MED CTR CARDIAC | MD [address] | myocardial | | | | REHABILITATION [address] | [place] | infarction involving | | | | [place] | [address] | right coronary | | | | [place] [address] | | artery (HCC) | | | | [phone] | | | +--------+---------+ + + + [...] encounter Progress Notes Pricilla Zaldivar RN - 02/07/2017 10:[address] [facility] CARDIAC REHABILITATION [address] [facility] [address] Cardiac Rehab 30 Day Evaluation Date: 02/07/2017 Patient Information Patient Name: Jose Raul Palafox Date of : 1960 Age: 56 y.o. Referring Provider: Latonia Olson MD Encounter Diagnoses Code Name Primary? I21.11 ST elevation myocardial infarction involving right coronary artery (HCC) Mr. Palafox is a 55 y.o. male with a history of hyperlipidemia, severe COPD, recent smoker who experienced chest pain at the [facility] and was found to have STEMI on 11/03/16. His RCA was s uccessfully stented by Dr. Olson. On 01/03/17 he was readmitted with unstable angina and r eceived another stent. Since that time, he has been chest pain free. He arrives on O2 @ 2L/cont. He has an order for continuous supplemental oxygen since his ce rvical spine surgery. Today, he exercises briskly for 30 minutes on room air maintaining Sp O2 at 96-98%. A copy of his 6 minute walk test was sent to Dr. Gomez at the [facility]. Cardiac Rehab Phase II Reema tment [...] 4/ 10 METs=3:13 30 Day exercise assessment: Date:02/07/17 Mode:Biostep Duration: 30 min at 4.12 METs RPE: 4 /10 60 Day exercise assessment: Date: Mode: Duration: RPE: /10 Discharge exercise assessment: Date: Mode: Duration: RPE: /10 Sessio n Prescription Modes: Recumbent elliptical, Ergometer Frequency: 3 X week Duration: 30 minutes Progression: Increase duration and/or intensity to maintain THR and/or RPE 3-4/10 THR: Rest +30 bpm Resistance training: Yes Precautions: peripheral neuropathy, thoracic spine pain. Home E xercise Modes: Walk- walking is limited due to t-spine pain Frequency: 5 X week Duration: 30 minutes [...] have thoracic pain, which limits his walking Date: 01/05/17 Notes: Continues to have thoracic pain, which limits his walking Nutr ition and Weight Assessment: Height: 6' 2" Admission Weight: 219# 30 Day We ight: 218# BMI: 60 Day Weight: D ischarge Weight: [...] Healthy Dietary Education Date: 01/05/17 -Referral to Coat Tailor: Date: -DVD: Healthy Eating For Life Date: Target Goal(s) -Patient weight has maintained or improved toward BMI <25 -Waist circumference <35 inches for women < 40 inches for men -Diet low in saturated fats, simple carbs, high in fruits, vegetables and whole grains Progression/ Progress toward Goals Date: 01/05/17 Notes: His is supportive and has also changed her diet to he art healthy. Date: 02/07/17 Notes: Continues to eat a heart healthy diet. Hypertension History of hypertension: No Treatment: On medication Initial Resting BP: 112/60 Peak Exercise BP: 158/88 30 Day Resting BP: 106/64 30 Day Exercise BP: 124/72 60 Day Resting BP: 60 Day Exercise [...] Goals: Date: Target Goal Blood pressure Goal: <140/90 Progression /Progress toward Goals Date: 01/05/17 Notes: His BP was "fine" so he stopped taking metoprolol. After education, he agrees to take it again. Dyslipidemia History of Dyslipidemia: Yes Treatment: On medication Most recent lipid panel: [id number] TRIG 197 HDL 34 LDL 106 Interven [...] saturated fats. Agrees to regular exercis e. Date: 02/07/17 Notes: He is limiting saturated fats, exercising 3 X week. Chioma franco Mellitus History of diabetes: No Treatment: Last hemoglobin A1C: Value: Date: Interventions -Evaluate blood sugar pre- and post- exercise until stable. Date: Range: -Referral to Co Supervisor Grounds And Landscape Date: Education Points listed below- Date Completed: [...] Yes Type of tobacco: None Current amount: quit Stage of change: Contemplation Action Carroll ling to set Quit Date: 01/26/17 Barriers/Challenges: Stress [...] in the past. agrees to quit too. Date: 02/07/17 Notes: He and his both quit smoking this past weekend. Psychosocial Depression: No Initial PHQ-9: 2 30 [...] get back into regular exercise. Quit smoking. 02/07/17 Compliant in attendance. Gaining endurance. Quit smoking. Electronically signed by: Pricilla Zaldivar RN, 02/07/2017 12:23 Patient Name: Jose Raul Palafox/: 1960/ signed by Latonia Olson MD at 02/07/2017 5:49 PM PDTdocumented in this encounter Plan of [...]
--- OUTSIDE RECORDS SUMMARY | ~2020-03-18 | XMS | Encounter Summary ---
Demographics + + + | Address | [address] | | | [place] [address] | + + + | Home Phone [...] Team Providers + +------+ + | Care Squeegee Tender Name | Role | Phone | [...] + + | 12/31/ | Hospital | [facility] | Cecil Hensley, | Hepatitis C virus | | 2014 | Encounter | MED CTR XRAY [address] | PA-C [address] | infection, | | | | [place] | [address] [place] | unspecified | | | | [place] [address] | [place] [address] | chronicity; Restless | | | | [phone] | [phone] | leg syndrome; COPD | | | | | | (chronic obstructive | | | | | | pulmonary disease) | | | | | | ([facility]); Asthma, | | | | | | [...] + +--------+ + + + | XR CHEST PA AND | Routin | 12/31/2014 | Hepatitis C virus | Results for this | | LATERAL | e | 12:48 PM | infection, | procedure are in the [...] + documented in this encounter Results XR Chest PA and Lateral (12/31/2014 12:48 [...] + | [address] | [address] | [place] | [phone] | | [facility] | | [address] | | | - IMAGING | | [...]
--- OUTSIDE RECORDS SUMMARY | ~2020-03-18 | XMS | Encounter Summary ---
Demographics + + + | Address | [address] | | | [place] [address] | + + + | Home Phone | | + + + | Preferred Language | Unknown | + + + | Marital Status | | + + + | Uatsdin Affiliation | Unknown | + + + [...] Team Providers + +------+ + | Care Echocardiography Radiology Technologist Name | Role | Phone | + +------+ + | Gary Gomez MD | PCP | | + +------+ + Reason for Visit +--------+--------+ + | Reason | Onset | Comments | | | Date | | +--------+--------+ + | Other | 12/24/ | change brilinta to effient, records sent | | | 2016 | | +--------+--------+ + Encounter Details +--------+ + + + + | Date | Type | Department | Care Team | Description | +--------+ + + + + | 12/24/ | Telephone | [facility] [place] | Latonia Olson, | Other (change | | 2016 | | CARDIOLOGY [address] | MD [address] | brilinta to effient, | | | | [place], | [place], [place] | records sent) | | | | [place] [address] | [address] | | | | | [phone] | | | +--------+ + + + [...] Telephone Encounter - Diana Wilson RN - 12/24/2016 8:21 AM PDTPer conversation with Brian Olson, patient needs to discontinue Brilinta and start on Effient instead. Copy of thi s note along with Discharge summary of 12/24/16 and script for effient faxed to Dr Gomez at documented in this encounter Plan of Treatment Not on filedocumented as of this encounter Visit Diagnoses Not on filedocumented in this encounter"
--- OUTSIDE RECORDS SUMMARY | ~2020-03-18 | XMS | Encounter Summary ---
Demographics + + + | Address | [address] | | | [place] [address] | + + + | Home Phone | | + + + | Preferred Language | Unknown | + + + | Marital Status | | + + + | Anabaptist Affiliation | Unknown | + + + | Race | White | + + + | Ethnic Group | Not or | + + + Author + + + | Author | [facility] | | | and [place] | + + + | Organization | [facility] | | | [...] Team Providers + +------+ + | Care Code Clerk Name | Role | Phone | + [...] Description | +--------+---------+ + + + | 04/04/ | Office | [facility] | Latonia Olson, | ST elevation | | 2017 | Visit | MED CTR CARDIAC | MD [address] | myocardial | | | | REHABILITATION [address] | [place] | infarction involving | | | | [place] | [address] | right coronary | | | | [place] [address] | | artery (HCC) | | | | [phone] | | | +--------+---------+ + + + [...] encounter Progress Notes Pricilla Zaldivar RN - 04/04/2017 12:45 PM PDT [facility] CARDIAC REHABILITATION [address] [facility] [address] Cardiac Rehab Date: 04/04/2017 Patient Information Patient Name: Jose Raul Palafox [...] min Electronically signed by: Pricilla Zaldivar RN, 04/04/2017 11:51 Patient Name: Jose Raul Palafox/: 1960/ signed by Pricilla Zaldivar RN at 04/04/2017 11:52 AM PDTdocumented in this encounter Plan of Treatment Not on filedocumented as of this encounter Visit Diagnoses + + | Diagnosis | + + | ST elevation myocardial infarction involving right coronary artery (HCC) Acute | | myocardial infarction of inferoposterior wall, initial episode of care | + + documented in this encounter"
--- OUTSIDE RECORDS SUMMARY | ~2020-03-18 | XMS | Encounter Summary ---
Demographics + + + | Address | [address] | | | [place] [address] | + + + | Home Phone [...] Team Providers + +------+ + | Care Psychic Reader Name | Role | Phone | + +------+ + | Gary Gomez MD | PCP | | + +------+ + Reason for Visit + +--------+ + | Reason | Onset | Comments | | | Date | | + +--------+ + | Imaging Only | 12/04/ | | | | 2014 | | + +--------+ + Encounter Details +--------+ + + + + | Date | Type | Department | Care Team | Description | +--------+ + + + + | 12/04/ | Telephone | [facility] | Aleksander Stern, | Imaging Only | | 2014 | | NEUROSURGERY [address] | DO [address] | | | | | [address] | [address] [place], [place] | | | | | [place], [place] | [address] | | | | | [address] | | | | | | [phone] | | | +--------+ + + + [...] Encounter - Marilu Tafoya Cert MA - 12/04/2014 1:38 PM PDTI have sent a reminde r to myself to have this MRI reviewed by DR. Setrn. MARILU TAFOYA eleAnn Carter - 12/04/2014 11:03 AM PDTPatient called to let our office know that he bonilla s an MRI scheduled for 12/11/14, and would like Dr. Stern to review as soon as possible once it is completed. documented in this encounter Plan of Treatment Not on filedocumented as of this encounter Visit Diagnoses Not on filedocumented in this encounter"
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
--- OUTSIDE RECORDS SUMMARY | ~2020-03-18 | XMS | Encounter Summary ---
Demographics + + + | Address | [address] | | | [place] [address] | + + + | Home Phone | | + + + | Preferred Language | Unknown | + + + | Marital Status | | + + + | Mandaen Affiliation | Unknown | + + + [...] Team Providers + +------+ + | Care Faculty Support Coordinator Name | Role | Phone | + +------+ + | Gary Gomez MD | PCP | | + +------+ + Encounter Details +--------+ + + + + | Date | Type | Department | Care Team | Description | +--------+ + + + + | 06/20/ | Orders Only | [facility] | Aleksander Stern, | Neck pain (Primary | | 2017 | | NEUROSURGERY [address] | DO [address] | Dx) | | | | [address] | [address] [place] | | | | | [place] | [address] | | | | | [address] | | | | | | [phone] | | | +--------+ + + + [...]
--- OUTSIDE RECORDS SUMMARY | ~2020-03-18 | XMS | Encounter Summary ---
Demographics + + + | Address | [address] | | | [place] [address] | + + + | Home Phone [...] Team Providers + +------+ + | Care District Administrative Assistant Name | Role | Phone | + +------+ + | Gary Gomez MD | PCP | | + +------+ + Reason for Visit + +--------+ + | Reason | Onset | Comments | | | Date | | + +--------+ + | Results, Imaging | 01/08/ | Hip XR | | | 2019 | | + +--------+ + Encounter Details +--------+ + + + + | Date | Type | Department | Care Team | Description | +--------+ + + + + | 01/08/ | Telephone | [facility] | Zaki Marshall, | Results, Imaging | | 2019 | | PHYSIATRY [address] | PA-C [address] | (Hip XR) | | | | [address] | [address] [place] | | | | | [place] [facility], [place] | [place] [address] | | | | | [address] | [phone] | | | | | [phone] | | | +--------+ + + + [...] this encounter Miscellaneous Notes Telephone Encounter - Fara Hardin, Hair Specialist - 01/08/2019 8:46 AM PDTCalled p atient and relayed the results of his hip XR as well as advised him that the referral for th e hip injection that we submitted last week was authorized, and we will add it on to his inj ection today. Overall the patient verbalized understanding and was grateful for the call. El ectronically signed by Clive Shields Assistant at 01/08/2019 8:47 AM PDTTelephon e Encounter - Fara Hardin Hair Specialist - 01/08/2019 8:43 AM PDT----- Message robinson Marshall PA-C sent at 01/04/2019 14:41 PDT ----- Greta, Please call patient regarding hip xray. Results suggest mild degerative changes, his hip pain is likely soft tissue related within the hip joint. The hip injection should help with his hip px. Thanks, Zaki Marshall PA-C docum ented in this encounter Plan of Treatment Not on filedocumented as of this encounter Visit Diagnoses Not on filedocumented in this encounter"
--- OUTSIDE RECORDS SUMMARY | ~2020-03-18 | XMS | Encounter Summary ---
Demographics + + + | Address | [address] | | | [place] [address] | + + + | Home Phone [...] Team Providers + +------+ + | Care Resident Intern Name | Role | Phone | + +------+ + | Gary Gomez MD | PCP | | + +------+ + Reason for Visit + +--------+ + | Reason | Onset | Comments | | | Date | | + +--------+ + | Hospital Follow-up | 01/04/ | | | | 2016 | | + +--------+ + Encounter Details +--------+ + + + + | Date | Type | Department | Care Team | Description | +--------+ + + + + | 01/04/ | Telephone | [facility] | Shannan Justin, | Hospital Follow-up | | 2017 | | [facility] | PharmD [address] | | | | | [address] [place] | [address] | | | | | [place] [address] | [place] [address] | | | | | [phone] | [phone] | | +--------+ + + + + [...] encounter Miscellaneous Notes Telephone Encounter - Shannan Justin, PharmBrian - 01/04/2017 10:17 AM PDTError, closing nando nter. documented in thi s encounter Plan of Treatment Not on filedocumented as of this encounter Visit Diagnoses Not on filedocumented in this encounter"
--- OUTSIDE RECORDS SUMMARY | ~2020-03-18 | XMS | Encounter Summary ---
Demographics + + + | Address | [address] | | | [place] [address] | + + + | Home Phone | | + + + | Preferred Language | Unknown | + + + | Marital Status | | + + + | Jewish Affiliation | Unknown | + + + [...] Team Providers + +------+ + | Care Associate Automation Engineer Name | Role | Phone | + +------+ + | Gary Gomez MD | PCP | | + +------+ + Encounter Details +--------+ + + + + | Date | Type | Department | Care Team | Description | +--------+ + + + + | 12/22/ | Orders Only | [facility] | Whitney, Latonia A, | ST elevation | | 2017 | | CARDIOLOGY [address] | MD [address] | myocardial | | | | [place], | [place] | infarction involving | | | | [place] [address] | [id number] | right coronary | | | | [phone] | | artery (HCC) | | | | | | (Primary Dx); | | | | | | Essential | | | | | | hypertension | +--------+ + + + + Social [...] Basic Metabolic | Lab | Routin | ST elevation | Expected: | | Panel | | e | myocardial | 12/22/2016, Expires: | | | | | infarction involving | 12/22/2017 | | | | | right coronary | | | | | | artery (HCC) | | | | | | Essential | | | | | | hypertension | | + +------+--------+ + + documented as of this encounter Visit Diagnoses + + | Diagnosis | + + | 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
--- OUTSIDE RECORDS SUMMARY | ~2020-03-18 | XMS | Encounter Summary ---
Demographics + + + | Address | [address] | | | [place] [address] | + + + | Home Phone [...] Team Providers + +------+ + | Care Senior Payroll Administrator Name | Role | Phone | + [...] + + + + | 01/04/ | Hospital | [facility] | Zaki Marshall, | Lumbar radiculopathy | | 2019 | Encounter | MED CTR XRAY [address] | PA-C [address] | | | | | [place] | [address] [place] | | | | | [place] [address] | [place] [address] | | | | | [phone] | [phone] | | | | | | | [...] + +--------+ + + + | XR HIP RIGHT 2-3 | Routin | 01/04/2019 | Lumbar | Results for this | | VIEWS | e | 2:14 PM | radiculopathy | procedure are in the | | | | PDT | | results section. | + +--------+ + + + documented in this encounter Results XR Hip Right 2-3 Views (01/04/2019 2:14 [...] + | [facility], Rad Results In - 01/04/2019 2:27 PM PDT [...] + + | Performing | Address | City/State[facility] | Phone Number | | Organization | | | | + +---------+ + + | [facility] | | | | + +---------+ + + documented in this encounter Visit Diagnoses + + | Diagnosis | + + | Lumbar radiculopathy Thoracic or lumbosacral neuritis or radiculitis, unspecified | + + documented in this encounter"
--- OUTSIDE RECORDS SUMMARY | ~2020-03-18 | XMS | Encounter Summary ---
Demographics + + + | Address | [address] | | | [place] [address] | + + + | Home Phone | | + + + | Preferred Language | Unknown | + + + | Marital Status | | + + + | Spiritism Affiliation | Unknown | + + + | Race | White | + + + | Ethnic Group | Not or | + + + Author + + + | Author | [facility] | | | and [place] | + + + | Organization | [facility] | | [...] Team Providers + +------+ + | Care Motor And Generator Brush Cutter Name | Role | Phone | [...] + + | 12/31/ | Hospital | [facility] | Cecil Hensley, | | | 2014 | Encounter | [facility] | PA-C [address] | | | | | [address] | [address] | | | | | [place], [place] | [place] [address] | | | | | [address] | [phone] | | | | | [phone] | | | +--------+ + + + [...]
--- OUTSIDE RECORDS SUMMARY | ~2020-03-18 | XMS | Encounter Summary ---
Demographics + + + | Address | [address] | | | [place] [address] | + + + | Home Phone [...] Team Providers + +------+ + | Care Orderlies Teacher Name | Role | Phone | + [...] + + | 01/31/ | Office | [facility] | Latonia Olson, | ST elevation | | 2017 | Visit | [facility] | MD [address] | myocardial | | | | REH[address]IL[facility] [address] | [place] | infarction involving | | | | [address] [place] | [address] | right coronary | | | | [place] [address] | | artery (HCC) | | | | [phone] | | | +--------+---------+ + + + [...] encounter Progress Notes Pricilla Zaldivar RN - 01/31/2017 10:00 AM PDT [facility] [address] [facility] [address] Cardiac Rehab Date: 01/31/2017 Patient Information Patient Name: Jose Raul Palafox [...] duration: 60 min Electronically signed by: Pricilla Zalidvar RN, 01/31/2017 13:14 Patient Name: Jose Raul Palafox/: 1960/ signed by Pricilla Zaldivar RN at 01/31/2017 1:15 PM PDTdocumented in this encounter Plan of [...]
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
--- OUTSIDE RECORDS SUMMARY | ~2020-03-18 | XMS | Encounter Summary ---
Demographics + + + | Address | [address] | | | [place] [address] | + + + | Home Phone | | + + + | Preferred Language | Unknown | + + + | Marital Status | | + + + | Holiness Affiliation | Unknown | + + + | Race | White | + + + | Ethnic Group | Not or | + + + Author + + + | Author | [facility] | | | and [place] | + + + | Organization | [facility] | | | and [...] Team Providers + +------+ + | Care Cadmium Liquor Maker Name | Role | Phone | + +------+ + | Gary Gomez MD | PCP | | + +------+ + Reason for Visit +--------+--------+ + | Reason | Onset | Comments | | | Date | | +--------+--------+ + | Other | 11/05/ | records sent | | | 2016 | | +--------+--------+ + Encounter Details +--------+ + + + + | Date | Type | Department | Care Team | Description | +--------+ + + + + | 11/05/ | Telephone | [facility] | Latonia Olson, | Other (records sent) | | 2017 | | CARDIOLOGY [address] | MD [address] | | | | | [place], | [place], [place] | | | | | [place] [address] | [address] | | | | | [phone] | | | +--------+ + + + [...] Telephone Encounter - Diana Wilson RN - 11/05/2016 12:14 PM PDTDischarge summary from today along with scripts for Metoprolol and Atorvastatin faxed to [facility] - Dr Gomez @ [phone] ...........................................Diana Wilson RN on 11/05/16 at 12:15 documented in this encounter Plan of Treatment Not on filedocumented as of this encounter Visit Diagnoses Not on filedocumented in this encounter"
--- OUTSIDE RECORDS SUMMARY | ~2020-03-18 | XMS | Encounter Summary ---
Demographics + + + | Address | [address] | | | [place] [address] | + + + | Home Phone [...] + + | Author | [facility] | | | and [place] | + + + | Organization | [facility] | | [...] Team Providers + +------+ + | Care Buzzle Buffer Name | Role | Phone | + [...] Description | +--------+---------+ + + + | 03/30/ | Office | [facility] | [place], | ST elevation | | 2017 | Visit | [facility] | MD [address] | myocardial | | | | REHABILITATION [address] | [place] | infarction involving | | | | [address] [place] | [address] | right coronary | | | | [place] [address] | | artery (HCC) | | | | [phone] | | | +--------+---------+ + + + [...] encounter Progress Notes Pricilla Zaldivar RN - 03/30/2017 12:45 PM PDT [facility] C[facility]ATION [address] [facility] [address] Cardiac Rehab Date: 03/30/2017 Patient Information Patient Name: Jose Raul Palafox Date of : 1960 Age: 56 y.o. Encounter Diagnoses Code Name Primary? 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 Yes Any Changes in Medications? No 01/19/17 gabapentin. Any Problems to Report? No 03/30/17 it is very smokey in [place], he had been short of . 03/18/17 started on prednisone and abx. Pain Level: 04/03 leg, T-spine, neck Home [...] min Electronically signed by: Pricilla Zaldivar RN, 03/30/2017 12:45 Patient Name: Jose Raul Palafox/: 1960/ signed by Pricilla Zaldivar RN at 03/30/2017 12:46 PM PDTdocumented in this encounter Plan of Treatment Not on filedocumented as of this encounter Visit Diagnoses + + | Diagnosis | + + | ST elevation myocardial infarction involving right coronary artery (HCC) Acute | | myocardial infarction of inferoposterior wall, initial episode of care | + + documented in this encounter"
--- OUTSIDE RECORDS SUMMARY | ~2020-03-18 | XMS | Encounter Summary ---
Demographics + + + | Address | [address] | | | [place] [address] | + + + | Home Phone | | + + + | Preferred Language | Unknown | + + + | Marital Status | | + + + | Congregational Affiliation | Unknown | + + + [...] Team Providers + +------+ + | Care Career Technology Teacher Name | Role | Phone | [...] | [address] | [address] | | | | | type | [address] [place] [address], | | | | | Procedures | [place], [place] | [place] | | | | | [place] | [address] | [address] | | | | | Stress Test | Phone: | Phone: | | | | | (Vasodilator | [phone] | [phone] | | | | | ) CHG | Fax: | Fax: | | | | | MYOCARDIAL | [phone] | [phone] | | | | | SPECT | | | | | | | MULTIPLE | | | | | | | STUDIES MO | | | | | | | CV STRS TST | | | | | | | XERS&/OR RX | | | | | | | CONT ECG W/O | | | | | | | I&R MO | | | | | | | [...] | Radiology | Diagnoses | [place], | [facility] | | | | | Chest pain, | Latonia Jewell MD | Medicine | | | | | unspecified | [address] | [address] | | | | | type | [address] [place] | [address], | | | | | Procedures | [place], [place] | [place] | | | | | [place] | [address] | [address] | | | | | Stress Test | Phone: | Phone: | | | | | (Vasodilator | [phone] | [phone] | | | | | ) CHG | Fax: | Fax: | | | | | MYOCARDIAL | [phone] | [phone] | | | | | SPECT | | | | | | | MULTIPLE | | | | | | | STUDIES MO | | | | | | | CV STRS TST | | | | | | | XERS&/OR RX | | | | | | | CONT ECG W/O | | | | | | | I&R MO | | | | | | | [...] + + | 12/16/ | Hospital | [facility] | Latonia Olson, | Chest pain, | | 2017 | Encounter | MED CTR NUCLEAR | MD [address] | unspecified type | | | | MEDICINE [address] | [place], [place] | | | | | [address], | [address] | | | | | [place] [address] | | | | | | [phone] | Last SawyerTisha | | +--------+ + + + + [...] Weight | 102.5 kg (226 lb) | 12/16/2016 10:00 AM | | | | | PDT | | + + + + + | Height | - | [...] + documented in this encounter Results [place] Nuclear Stress Test [...] 56 %. Signed by: Lulu Terrazas MD [facility] | | | 12/16/2016, 14:57 | | + + + + + ----+ | Narrative | Performed At | + + ----+ | | [facility] | | NUCLEAR MEDICINE STRESS TEST REPORT Patient Name: Jose Raul Palafox | TYREL | | Study Date: No visit date found. Primary Care Provider: Tommy Murdock [facility] | | MD Patricia : 1960 Age: [...] [address] | [place] | [phone] | | [facility] | | [address] | | | - IMAGING | | [...] | | | + +--------+ +-------+------+------+ | aminophylline injection 75 mg | Given | 12/17/19 | 75 mg | | | | 75 mg, Intravenous, ONCE PRN, per | | 17 10:13 | | | | | doctor, Starting Joceline 12/16/16 at | | AM PDT | | | | | 1012, For 1 dose, Nuclear | | | | | | | Medicine | | | | | | + +--------+ +-------+------+------+ +---+---+ | | | +---+---+ + +-------+ +---------+--------+---+ | dipyridamole (PERSANTINE) 60mg | Given | 12/17/19 | 14.555 | 582.2 | | | in 40 mL NS syringe 0.142 | | 17 10:30 | mg/min | mL/hr | | | mg/kg/min | | AM PDT | | | | | 102.5 kg (582.2 mL/hr), | | | | | | | Intravenous, Administer over 4 | | | | | | | Minutes, ONCE, Joceline 12/16/16 at | | | | | | | 1030, For 1 dose, Nuclear | | | | | | | Medicine | | | | | | + +-------+ +---------+--------+---+ +---+---+ | | | +---+---+ + +-------+ + +---+---+ | technetium TC-99M sestamibi | Given | 12/17/19 | 9 | | | | (CARDIOLITE) injection | | 17 10:12 | -millicu | | | | millicurie 9 -millicurie, | | AM PDT | william | | | | Intravenous, ONCE PRN, Other, | | | | | | | Starting Joceline 12/16/16 at 1012, For | | | | | | | 1 dose, Nuclear Medicine | | | | | | + +-------+ + +---+---+ +---+---+ | | | +---+---+ documented in this encounter"
--- OUTSIDE RECORDS SUMMARY | ~2020-03-18 | XMS | Encounter Summary ---
Demographics + + + | Address | [address] | | | [place] [address] | + + + | Home Phone [...] Team Providers + +------+ + | Care Dental Ceramist Name | Role | Phone | + [...] Description | +--------+---------+ + + + | 03/16/ | Office | [facility] | Latonia Olson, | ST elevation | | 2017 | Visit | MED CTR CARDIAC | MD [address] | myocardial | | | | REHABILITATION [address] | [place] | infarction involving | | | | [address] [place] | [address] | right coronary | | | | [place] [address] | | artery (HCC) | | | | [phone] | | | +--------+---------+ + + + [...] encounter Progress Notes Pricilla Zaldivar RN - 03/16/2017 12:45 PM PDT [facility] [address] [facility] [address] Cardiac Rehab Date: 03/16/2017 Patient Information Patient Name: Jose Raul Palafox Date of : 1960 Age: 56 y.o. Encounter Diagnoses Code Name Primary? 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 Yes Any Changes in Medications? No 01/19/17 gabapentin. Any Problems to Report? No 03/16/17 it is very smokey in [place], he has been short of sergio ath. Pain Level: 04/03 leg, T-spine, neck Home [...] min Electronically signed by: Pricilla Zaldivar RN, 03/16/2017 13:15 Patient Name: Jose Raul Palafox/: 1960/ signed by Pricilla Zaldivar RN at 03/16/2017 1:24 PM PDTdocumented in this encounter Plan of Treatment Not on filedocumented as of this encounter Visit Diagnoses + + | Diagnosis | + + | ST elevation myocardial infarction involving right coronary artery (HCC) Acute | | myocardial infarction of inferoposterior wall, initial episode of care | + + documented in this encounter"
--- OUTSIDE RECORDS SUMMARY | ~2020-03-18 | XMS | Encounter Summary ---
Demographics + + + | Address | [address] | | | [place] [address] | + + + | Home Phone | | + + + | Preferred Language | Unknown | + + + | Marital Status | | + + + | Caodaism Affiliation | Unknown | + + + [...] Team Providers + +------+ + | Care Clinical Nurse Name | Role | Phone | + +------+ + | Gary Gomez MD | PCP | | + +------+ + Reason for Visit + + + | Reason | Comments | + + + | Follow-up | | + + + | Post Op | Staple removal. | + + + Encounter Details +--------+---------+ + + + | Date | Type | Department | Care Team | Description | +--------+---------+ + + + | 03/05/ | Office | [facility] | Cecil Hensley, | Lumbar foraminal | | 2019 | Visit | NEUROSURGERY [address] | PA-C [address] | stenosis (Primary | | | | [address] | [address] [place] | Dx); Spinal | | | | [place], [place] | [place] [address] | stenosis, | | | | [address] | [phone] | unspecified spinal | | | | [phone] | | region; Lumbar | | | | | | radiculopathy; | | | | | | Chronic obstructive | | | | | | pulmonary disease, | | | | | | unspecified COPD | | | | | | type (HCC) | +--------+---------+ + + + Social [...] + + + | Blood Pressure | 128/72 | 03/05/2019 9:10 AM | | | | | PDT | | + + + + + | Pulse | 68 | 03/05/2019 9:10 AM | | | | | PDT | | + + + + + | Temperature | - | - | | + + + + + | Respiratory Rate | 20 | 03/05/2019 9:10 AM | 2 liters of oxygen | | | | PDT | | + + + + + | Oxygen Saturation | 97% | 03/05/2019 9:10 AM | | | | | PDT | | + + + + + | Inhaled Oxygen | - | - | | | Concentration | | | | + + + + + | Weight | 101.6 kg (224 lb) | 03/05/2019 9:10 AM | | | | | PDT | | + + + + + | Height | 189.9 cm (6' 2.75") | 03/05/2019 9:10 AM | | | | | PDT | | + + + + + | Body Mass Index | 28.19 | 03/05/2019 9:10 AM | | | | | PDT [...] of this encounter Patient Instructions Patient Instructions Bhargavi Bermeo, Circuit Clerk - 03/05/2019 9:00 AM PDTIt was gr eat to see you today, we discussed the following in your appointment: 1. You can start taking Ibuprofen to help with any of the pain that you may have. Since you did not have a fusion we do not need to worry about bone healing and growth, which Ibuprofe n can prohibit proper bone growth. 2. Continue to wean off the Oxycodone by extending your time to take them by a little bit e ach day. You can start by taking one less a day for a week, and continue weaning off by one tab each week until gone, or spacing out the hours, so instead of taking them every 8 hours, take them every 9, then every 10 and so on, and so forth until weaned off. However, please let us know if you have any questions or concerns. 3. Please keep the incision site clean and dry for at least the next [address] rips will start to fall off on their own. Please do not rip them off. If the Steri-Strips ar e still present after 7 days then you can, if you wish take them off at that point. We want to allow your skin a cancel to heal and continue closing post surgery. 4. Please make sure you ease into activities. Do not go from lifting 2 pounds to 20 pounds right away. You need to allow your body time to heal and easing back into activities. Please do not start lifting heavy objects over head, again, you will want to ease into that. When you are holding onto heavy objects make sure you hold them close to your body and at stomach level. Listen to your body, if it hurts, stop. 5. You will have some waxing and waning of symptoms after surgery. The pain will vary in in tensity and location. Your symptoms may vary form day to day. As time moves on the frequency and intensity of the pain should start to slowly ease and ev entually will not be as noticeable in your day to day routine. It can easily take 6 months to a year and a half to "heal". Everyone has a different progre ssion time in regards to healing. It is likely that you will always have some kind or form o f pain after having surgery. 6. Your incisions look great! They will continue to heal. Let us know if you need a medicat ion refill. documented in this encounter Progress Notes Cecil Hensley PA-C - 03/05/2019 9:00 AM PDT Cecil Hensley PA-C [address] [facility] [place] [address] [place] [address] FAX: [phone] NEUROSURGERY FOLLOW-UP CHIEF COMPLAINT: Chief Complaint Patient presents with Follow-up Post Op Staple removal. HISTORY OF PRESENT ILLNESS: Jose Raul Palafox is a 58 y.o. male that had a laminectomy at L2-5 for lumbar spinal stenosis on 02/26/[address] Barakat. He returns and overall is doin g well. Today he has some complaint of some intermittent leg coldness in both legs last night. He h ad to lay down to be able to stretch out and then it was okay and he was able to move on abo ut his evening. Happened this morning as well but he did have this in the right leg prior t o surgery as he has a history of neuropathy. He is not worried about it, just wanted to note it. He does feel about 50% better now as compared to before surgery. The right thigh has b een feeling better over all, minus the cold sensation he has noted. He is able to stand for more than a minute or two now. He is pleased with the healing that has occurred. He is ove rall much better than he was prior to surgery. The other day, he was able to walk across [facility] and product picker his 's prescription. He says that he would have never been able to do that prior to surgery. He notes some numbness and tingling in his hands. He notes that has been going on since his neck surgery 3 years or so, ago. He is not worried about that at this time. He denies hav ing much pain in his arms. He just wanted it noted in his chart. He has been walking as much as directed, around his apartment complex. He is taking pain m edications at this point. He takes about 6 tabs of the Oxycodone a day, taking 2 tablets at a time about 8 hours apart. He is no longer taking the robaxin as is [facility] provider will no lo nger prescribe it. He takes the Flexeril every 12 hours, 6am and 6pm. He has had no issues with his surgical site. PAST MEDICAL HISTORY: Past Medical History: Diagnosis Date Acute bronchitis Acute upper respiratory infection, unspecified Allergic rhinitis, unspecified Anxiety Asthma CAD in [place] artery Cervical radiculopathy at C6 Right on EMG/NCS in 01/04 Chronic bronchitis with COPD (chronic obstructive pulmonary disease) ([facility]) Chronic low back pain Chronic [...] Angio; Surgeon: Latonia Olson MD; Location: [facility] CV LAB CARDIAC CATHERIZATION N/A 11/03/2016 Procedure: CV Cor Angio; Surgeon: Latonia Olson MD; Location: [facility] CV LAB CARDIAC CATHERIZATION N/A 12/23/2016 Procedure: CV LHC; Surgeon: Latonia Olson MD; Location: [facility] CV LAB CERVICAL SPINE SURGERY N/A 01/07/2015 Procedure: C3-4, C4-5, C5-6, C6-7, Anterior Cervical Discectomy w/ Fusion and Plating, Pos terior Fusion at C3-4, C4-5, C5-6, C6-7, C7-T1, and T1-2; Surgeon: Aleksander Stern DO; Loc ation: [facility] MAIN OR CHOLECYSTECTOMY 2010 Dr. Skaggs FINGER FRACTURE SURGERY Left 2003 middle finger crush injury; tip replacement FINGER SURGERY Left 1986 thumb attachment KNEE ARTHROSCOPY Right LUMBAR SPINE SURGERY Right 02/26/2019 Procedure: Right L2-L3, L3-L4, L4-L5 Decompressive Laminectomy; Surgeon: Denton harrell MD; Location: [facility] MAIN OR ROTATOR CUFF REPAIR Left 1995 ULNAR TUNNEL RELEASE Left 1995 CURRENT MEDICATIONS: Current Outpatient Medications Medication Sig Dispense Refill aspirin 81 MG EC tablet Take 1 tablet by mouth Daily. 30 tablet atorvaSTATin (LIPITOR) 80 MG tablet Take 1 tablet by mouth nightly. Do not take for a w [place] 30 tablet 11 buPROPion (WELLBUTRIN SR) 150 [...] 600 mg by mouth 2 times daily. ipratropium (ATROVENT HFA) 17 mcg/puff inhaler Inhale 2 puffs into the lungs 4 times da adrian. isosorbide mononitrate 60 mg ER tablet Take 30 mg by mouth every morning. lactulose 10 g/15 mL solution Take 30 mLs by mouth 2 times daily. For constipation 240 mL 2 levalbuterol (XOPENEX HFA) 45 mcg/puff inhaler Inhale 1 puff into the lungs EVERY 4 TO 6 HOURS NEEDED for Wheezing. levalbuterol (XOPENEX) 1.25 mg/3 mL nebulizer solution Take 1 ampule by nebulization 3 times daily. levothyroxine (SYNTHROID, LEVOTHROID) 175 MCG tablet Take 175 mcg by mouth every mornin g (before breakfast). medical marijuana (CANNABIS) as needed (to sleep). methocarbamol (ROBAXIN) 750 mg tablet Take 1-2 tablets by mouth every 6 hours as needed for Muscle spasms. 90 tablet 3 metoprolol tartrate (LOPRESSOR) 100 mg tablet Take [...] 20 mg by mouth 2 times daily. oxyCODONE (ROXICODONE) 5 mg tablet Take 1-3 tablets by mouth every 4 hours as needed fo r Pain. exempt: recent major spine surgery. Patient may take a maximum of 12 tabs in 24 hour s. Patient had a pharmacy consult during his hospital stay. 120 tablet 0 oxygen Inhale 2 L into the lungs [...] patient reports that he quit smoking about 7 weeks ago. His smoking use included cigar [...] ch anges. EYES: No eye problems, no impaired sight, no use of corrective lenses, no eye injury, no d ouble vision, no transient blindness. EARS, NOSE, AND THROAT: No changes in taste or smell, no hearing difficulty, + ringing in the ears, no ear drainage, no ear injury, no dizziness, no voice changes, no difficulty swal lowing, no significant snoring, no sleep apnea/CPAP, no sinus problems, no major dental work . NEUROLOGICALLY: Please see the review of systems discussed above in the history of present illness. In addition, He has numbness and pain in the arms and legs, weakness and muscle a gilberto. PSYCHIATRIC: No depression, no difficulty sleeping, no anxiety, no bipolar disorder. CARDIOVASCULAR: No heart attacks, no heart murmur, no heart fluttering, no chest pain, no ankle swelling. LUNG DISEASE: No shortness of breath, no cough, no tuberculosis, no bloody cough, no asthm a, no emphysema/COPD. GASTROINTESTINAL: No bowel disease, no nausea or vomiting, no rectal bleeding, no constipa tion, no fecal stool incontinence, no liver/gallbladder disease, no abdominal pain, no ulcer s. KIDNEY DISEASE: No urinary frequency, no painful or difficult urination, no urinary incont inence, no bladder problems, no impotence. ENDOCRINE: No diabetes, no thyroid disease, no osteopenia or osteoporosis, no breast drain age. SKIN: No breast lumps, no skin disease or skin changes, no rashes/itches. HEMATOLOGIC/LYMPHATIC: No enlarged lymph nodes, no easy or unusual bleeding, no personal h istory of cancer. RHEUMATOLOGIC: No joint pain/arthritis, no rheumatoid arthritis. INTERIM PHYSICAL EXAMINATION: Blood pressure 128/72, pulse 68, resp. rate 20, height 1.899 m (6' 2.75"), weight 101.6 kg (224 lb), SpO2 97 %. Body mass index is 28.19 kg/m. GENERAL: Jose Raul Palafox is in no acute distress with unlabored respirations. SPINE: His incisions are healing well without drainage, significant erythema, or discharge. EXTREMITIES: No lower extremity edema. NEUROLOGICAL EXAMINATION: MENTAL STATUS: He is awake, alert, and oriented. He follows simple and complex commands MOTOR EXAM: Motor strength is stable. This is improved when compared to the preoperative e xam. SENSORY EXAM: The sensory examination is different when compared to the preoperative exam. Decreased sensation to the right lateral calf muscle. "Hypersensitive, sharp" sensation to left calf muscle. RADIOGRAPHIC REVIEW: No new imaging to review at this time. ASSESSMENT: Outpatient Morphine Equivalent Daily Dose (MEDD) 03/05/19 and after 45-135 mg MEDD Order Name [...] r of 1.5 = 45-135 mg MEDD PEG Pain screening tool: Total score: 7.67 (03/05/19 0920) Encounter Diagnoses Name Primary? Lumbar foraminal stenosis Yes Spinal stenosis, unspecified spinal region Lumbar radiculopathy Chronic obstructive pulmonary disease, unspecified COPD type (HCC) PLAN: Overall, the he is doing fairly well. The patient can see some improvements but continues to recover from recent surgery. We discussed increasing the patient s activities now allowing 15 pound lifting. We wou ld like the patient to advance slowly with this process and discussed this at length during today's visit. Patient is making good progress with cutting down on his narcotics and I suspect will be of f of them in the next few weeks. Patient has a follow-up visit with Dr. Barakat in the next 2 to 3 weeks. If he has any que stions or concerns in the meantime we will see him on an as-needed basis. Otherwise, we nish l proceed as recommended. ICecil PA-C, personally performed the services described in this documentati on, as scribed by ROBERTA Lopez in my presence, and it is both accurate and complete. Cecil Hensley PA-C 03/05/19 ELECTRONICALLY SIGNED BY: Cecil Hensley PA-C, 03/05/2019 10:44 documented in this encounter Plan of Treatment Not on filedocumented as of this encounter Visit Diagnoses + + | Diagnosis | + + | Lumbar foraminal stenosis - Primary Spinal stenosis, lumbar region, without | | neurogenic claudication | + + | Spinal stenosis, unspecified spinal region | + + | Lumbar radiculopathy Thoracic or lumbosacral neuritis or radiculitis, unspecified | + + | Chronic obstructive pulmonary disease, unspecified COPD type (HCC) | + + documented in this encounter
--- OUTSIDE RECORDS SUMMARY | ~2020-03-18 | XMS | Encounter Summary ---
Demographics + + + | Address | [address] | | | [place] [address] | + + + | Home Phone [...] Team Providers + +------+ + | Care Vp Analysis Name | Role | Phone | + [...] Description | +--------+---------+ + + + | 02/04/ | Office | [facility] | Latonia Olson, | ST elevation | | 2017 | Visit | [facility] | MD [address] | myocardial | | | | REHABILITATION [address] | [place] | infarction involving | | | | [address] [place] | [address] | right coronary | | | | [place] [address] | | artery (HCC) | | | | [phone] | | | +--------+---------+ + + + [...] encounter Progress Notes Pricilla Zaldivar RN - 02/04/2017 10:00 AM PDT [facility] [address] [facility] [address] Cardiac Rehab Date: 02/04/2017 Patient Information Patient Name: Jose Raul Palafox [...] medications, but continues to smoke 10 cigs/day. Continue monitored exercise. Any abnormal vital signs or rhythm strips will be reported in progress note. Please see vital signs record, exercise record and rhythm strip scanned into media section every . Appointment duration: 60 min Electronically signed by: Pricilla Zaldivar RN, 02/04/2017 12:10 Patient Name: Jose Raul Palafox/: 1960/ signed by Pricilla Zaldivar RN at 02/04/2017 12:28 PM PDTdocumented in this encounter Plan [...]
--- OUTSIDE RECORDS SUMMARY | ~2020-03-18 | XMS | Encounter Summary ---
Demographics + + + | Address | [address] | | | [place] [address] | + + + | Home Phone | | + + + | Preferred Language | Unknown | + + + | Marital Status | | + + + | Jainism Affiliation | Unknown | + + + [...] Providers + +------+ + | Care Die Repair Name | Role | Phone | + [...] + + | 11/03/ | Surgery | [facility] | Latonia Gallardo, | CV Cor Angio | | 2017 | | MED CTR CV INTRA OP | MD [address] | | | | | [address] | [place] | | | | | [place] | [address] | | | | | [phone] | | | | | | [phone] | | | +--------+---------+ + + + [...] complain of chest pain while at the [facility]. He had a severe episode of chest [...] per day. Bill was taken to the lab animal technologist where his RCA was 100% occluded. T his was stented with RENETTA stents. He experienced a stent thrombosis and was returned to the lab animal technologist. A stent was placed and IVUS was performed. He was given IC integrelin. He had n o further ischemia. He developed post FL pericarditis. He was started on colchicine and [...] We are waiting for response from the [facility]. Condition at discharge: Pain free. Atorvastatin will be held for a week and then started due to possible interaction with col chicine. Colchicine will be given for a week for post FL pericarditis. HOSPITAL PROBLEMS: Principal Problem: ST elevation [...] was performed in multiple views using 5 Chinese JL 3.5 diagnostic and a JR4 guide. . A 5 kosovan pigtail catheter was advanced into the l [...] stenosis and no thrombus CONCLUSIONS: 1. Inferior FL 100% RCA - hypercoagulable state and thrombosis [...] 2 week s Call if any problems [phone] AttachmentsThe following attachments cannot be sent through Care Everywhere.AFTER PERCUTANE OUS CORONARY INTERVENTION (PCI) EXERCISING SAFELY (MALAGASY)STENTS, CORONARY (MALAGASY)docmeliza douglas in this encounter Medications at Time [...] was worse than the pain from his FL MEDICAL, SURGICAL, AND PERSONAL HISTORY Past Medical, [...] excellent Electronically signed by: Latonia Gallardo MD [facility] 11/04/2016 Portions of this chart may have been created with Relay voice recognition software. Occasi onal wrong-word or [...] [] Doctor's office: [x] Pharmacy list names: [facility] [] [facility]ON FORMING MACHINE ADJUSTER (Prescription Monitoring Program) [x] [facility] [] Care Everywhere [] [...] performed and electronically signed by Patrizia Kan, Environmental Compliance Officer 7 13:32 Reviewed by Shannan Justin PHARMD [...] 48.5 11/03/2016 PLT 315 11/03/2016 ASSESSMENT: Post FL pericarditis STEMI today - no ECG changes now bronchospasm PLAN: Colchicine Cut back on narcotics as they are not helping and he may have further complications from na rcotics themselves (breathing) Echo in am Increase the bronchodilators Insomnia has been a problem - safe medication is melatonin Continue low dose ativan Electronically signed by: Latonia Gallardo MD [facility] 11/03/2016 Portions of this chart may have been created with Relay voice recognition software. Occasi onal wrong-word or [...] om the original. Admission H&P Referring Provider: [facility] Primary Care: Dr. Gomez Primary Precision Layout Worker: Dr. Gallardo Reason for Admission: Chest pain and EKG with ST elevation 11/03/2016 Jose Raul Maldonado is a 55 y.o. male admitted today s/p cardiac catheterization. History of Present Illness: Bill was brought by ambulance to the ED after he began to complain of chest pain while at the [facility]. He states he experienced some chest discomfort [...] per day. Bill was taken to the lab animal technologist where his STEMI required stent thrombosis of [...] consider inferolateral injury or acute infarct ACUTE FL / STEMI Consider right ventricular involvement in acute inferior infarct Abnormal ECG No previous ECGs available Confirmed by LATONIA GALLARDO MD ([id number]) on 11/03/2016 4:10:14 PM Comprehensive Metabolic Panel [...] Inferior leads Confirmed by LATONIA GALLARDO MD ([id number]) on 11/03/2016 4:10:37 PM Impression/Plan: 1. STEMI requiring stents. Complicated by thrombosis of the RCA. DESvstents 2. Anxiety 3. Chest pain Plan: 1. Admit to CCU for post FL monitoring with telemetry for arrhythmia and post FL mechanical complications Trend cardiac biomarkers for peak [...] verify the correct chao ent, procedure, equipment, product support specialist and site/side marked as required. Preparation: Patient [...] 11/03/2016 PRIMARY CARE PROVIDER: Tommy Gomez MD HELMINTHOLOGIST: Dr. Latonia Gallardo MD, [facility], [facility] PRE-PROCEDURE DIAGNOSIS: STEMI POST-PROCEDURE DIAGNOSIS: same PROCEDURES [...] was performed in multiple views using 5 Chinese JL 3.5 d iagnostic and a JR4 guide. . A 5 kosovan pigtail catheter was advanced into the left [...] stenosis and no thrombus CONCLUSIONS: 1. Inferior FL 100% RCA - hypercoagulable state and thrombosis [...] to Effient given thrombosis Latonia Gallardo MD, [facility], [facility] DATE/TIME: 11/03/2016 15:33 11/03/2016 15:33 Latonia Gallardo 11/03/2016 documented in this e ncounter ED Notes Ryan Petersen MD - 11/03/2016 11:25 AM PDTFormatting of this note might be different fr om the original. [facility] Jose Raul Maldonado Emergency Department Encounter Note [address] [place] [id number] PCP:Tommy Gomez MD [phone] CHIEF COMPLAINT: Chief Complaint Patient presents with Chest Pain present off and on for one week, worsening today and especially over the last 45 minutes ED Room: [facility] * ED Triage Notes Kierra Bhat RN 11/03/2016 11:52 Pt sent from [facility] with severe chest pain, starting approx half [...] fingers. He says he was at the [facility] and had an appointment but never [...] 2016 at 11:17 Rate: 93 Rhythm: NSR MT interval: Normal QRS: Normal ST segments: Nonspecific changes T-waves: Normal Comments: No acute STEMI Emergency Department EKG interpretation: November 03, 2016 at 11:38 Rate: 62 Rhythm: NSR MT interval: Normal QRS: Normal ST segments: STEMI [...] were reviewed along with EMS notes and senior care record s if applicable. (See chart for [...] and documentation and directing patient to the lab animal technologist . Please see the ED course for [...] has been activated at this time 11:42. [facility] is here at bedside 11:47. [...] this chart may have been created with Relay voice recognition software. Occasi onal wrong-word or [...] for effect. ECG for s uspected angina. phlebotomist medical lab assistant education, project red education. RESTRAINT-RELATED GOALS: STRATEGIES [...] for effect. ECG for s uspected angina. phlebotomist medical lab assistant education, project red education. RESTRAINT-RELATED GOALS: STRATEGIES [...] for effect. ECG for s uspected angina. phlebotomist medical lab assistant education, project red education. RESTRAINT-RELATED GOALS: STRATEGIES [...] morning and now are just diminished posteriorly. phlebotomist medical lab assistant cam e and did the lab animal technologist education and the project Red heart attack education was completed. lan of Care - Eric contreras, Damaris Aguayo, SEAT MAKER - 11/04/2016 3:16 PM PDTFormatting of this [...] 3 12-14 4 15+ 5 lan of [facility] - Ifeoma Fernandez RN - 11/04/2016 1:06 [...] on 2L/O2 continuously, he gets this through [facility]. His PCP is Dr. Gomez at the [facility] and he also uses [facility]. He declines HH services at this time, he states he will be fine. His family will transport him when he is medically stable for discharge. Electronically signed by: Ifeoma Teran RN 11/04/2016 13:06 Called the [facility] pharmacy per caterina Lamar RN, to inquire [...] Ifeoma Teran RN 11/04/2016 15:58 lan of [facility] - Guanako Walters Ba, Chaplain - 11/04/2016 [...] of the visit. Spiritual Evaluation: [facility] [employer] [facility] in [place]. He is very enthusiastic in his carlos [...] spiritual care issues that arise, please contact fbi profiler. lan of Elin Pierre RN - 11/04/2016 [...] 2+. lan of Care - Marisol Lombardi, SEAT MAKER - 017 4:56 PM PDT Problem: Patient [...] 2 8-11 3 12-14 4 15+ 5 rehab trainer score 7 Admitted with STEMI Home regimen [...] - 11/03/2016 11:45 AM PDTPt sent from [facility] with severe chest pain, st arting approx [...] [address] | [place] | [phone] | | [facility] | | [address] | | | - LABORATORY | | [...] MD | | | | | | ([id number]) on 11/05/2016 | | | | | [...] [address] | [place] | [phone] | | [facility] | | [address] | | | - LABORATORY | | [...] Demographics Patient Name ERICA | | | OMER Room Number 2 | | | BILL Patient Number [id number] Date of Study | | | 11/04/2016 Visit Number [id number] | | | Referring Physician LATONIA GALLARDO MD Number Date of | | | 1960 [employer] Supervisor PALAK | | | MAX, | | | Age 55 year(s) | | | Interpreting LATONIA GALLARDO MD | | | Precision Layout Worker Gender Male | | | Nurse | | | Stress Access Manager Procedure Type of Study TTE procedure: ECHO [...] | | | EF | | | Uzmnfhyas15% Left Ventricle Diastolic Dimension: 5.44 cm | [...] Volume: 61.26 ml | | | EF Lgcbfjvmo24% | | | | | | Left [...] Number 452 | | BILL Patient Number [id number] Date of Study 11/04/2016 Visit Number | | [id number] Referring Physician LATONIA GALLARDO MD | | Number Date of 1960 [employer] Super[employer] PALAK SANTANA, | | [place] Age 55 year(s) | | Interpreting LATONIA GALLARDO MD Precision Layout Worker | | Gender Male Nurse Stress | [...] LA Volume: 61.26 ml | | EF Fyfqahaos84% Left Ventricle Diastolic Dimension: 5.44 cm | [...] LA Volume: 61.26 ml | | EF Fznvwcphm52% | | | | Left Ventricle | [...] | | | | | | ANA [id number]) on | | | | | | [...] | mL/min/1.73m2 | [facility] | | | [place] | RATE,ESTIMATED | | MEDICAL | | | | mL/min/1.98a5Cmce than | | CENTER - | | [...] + | [facility] | [address] | [place] | [phone] | | [facility] | | [address] | | | - LABORATORY | | [...] [address] | [place] | [phone] | | [facility] | | [address] | | | - LABORATORY | | [...] | | | | | | [facility] | | | | | | [...] + | [facility] | [address] | [place] | [phone] | | [facility] | | [address] | | | - LABORATORY | | [...] ST. | [address] | [place] | [phone] | | [facility] | | [address] | | | - LABORATORY | | [...] + | [facility] | [address] | [place] | [phone] | | [facility] | | [address] | | | - LABORATORY | | | | + + + + + C-Reactive Protein (11/03/2016 10:49 PM PDT) + +-------+ + + + | Component | Value | Ref Range | Performed | Pathologist | | | | | At | Signature | + +-------+ + + + | CRP | 7.99 | <8.00 mg/L | [facility] | | | | | | ST. [...] [address] | [place] | [phone] | | [facility] | | [address] | | | - LABORATORY | | [...] ST. | [address] | [place] | [phone] | | [facility] | | [address] | | | - LABORATORY | | [...] | | | | ANA SLAUGHTER MD ([id number]) | | | | | | on [...] [address] | [place] | [phone] | | [facility] | | [address] | | | - LABORATORY | | [...] MD | | | | | | ([id number]) on 11/03/2016 | | | | | [...] correct patient, | | | procedure, equipment, product support specialist and site/side marked as | | | [...] : | | | 1960MEDICAL RECORD NUMBER: [id number] OF PROCEDURE: | | | 11/03/2016 | | | PRIMARY CARE PROVIDER: | | | JOS Win SPECIALIST FIELD ENGINEER: Dr. Latonia Gallardo MD, [facility], | | | [facility] PRE-PROCEDURE DIAGNOSIS: [...] | performed in multiple views using 5 Chinese JL 3.5 diagnostic and a | | | JR4 guide. . A 5 kosovan pigtail catheter was advanced into the | [...] | stenosis and no thrombus CONCLUSIONS:1. Inferior FL 100% RCA - | | | hypercoagulable [...] thrombosis Latonia | | | MD Whitney, [facility], [facility]: | | | 11/03/2016 15:334 15:33 Latonia [...] in | | |multiple views using 5 Chinese JL 3.5 diagnostic and a JR4 guide. | | | . A 5 kosovan pigtail catheter was advanced into the left [...] | | |CONCLUSIONS: | | |1. Inferior FL 100% RCA - hypercoagulable state and thrombosis [...] | | | | |Latonia Gallardo MD, [facility], [facility] | | |[facility] | | |DATE/TIME: 11/03/2016 15:33 | | [...] [address] | [place] | [phone] | | [facility] | | [address] | | | - LABORATORY | | [...] + | [facility] | [address] | [place] | [phone] | | [facility] | | [address] | | | - LABORATORY | | [...] + | [facility] | [address] | [place] | [phone] | | [facility] | | [address] | | | - LABORATORY | | [...] mL/min/1.73m2 | [facility] | | | [place] | RATE,ESTIMATED | | MEDICAL | | | | mL/min/1.19k5Gqyp than | | CENTER - | | [...] [address] | [place] | [phone] | | [facility] | | [address] | | | - LABORATORY | | [...] mL/min/1.73m2 | [facility] | | | [place] | | | MEDICAL | | | [...] | Excess, | | mmol/L | [facility] | | | Extracellul | | | [...] | [address] | [place] | [phone] | | [facility] | | [address] | | | - LABORATORY | | [...] ACUTE | | | | | | FL / STEMI | | | | | [...] MD | | | | | | ([id number]) on 11/03/2016 | | | | | [...] [address] | [place] | [phone] | | [facility] | | [address] | | | - LABORATORY | | [...] + | [facility] | [address] | [place] | [phone] | | [facility] | | [address] | | | - LABORATORY | | [...] [address] | [place] | [phone] | | [facility] | | [address] | | | - LABORATORY | | | | + + + + + documented in this encounter Visit Diagnoses Not on filedocumented in this encounter Administered Medications + +---------+ + +-------+------+ | Medication Order | MAR | Action | Dose | Rate | Site | | | Action | Date | | | | + +---------+ + +-------+------+ | bivalirudin (ANGIOMAX) 250 mg | New Bag | 11/04/19 | 1.75 | 36.8 | | | in 50 ml NS infusion CONTINUOUS | | 17 11:54 | mg/kg/hr | mL/hr | | | PRN, Starting Tue11/03/16 at | | AM PDT | | | | | 1154, Intra-op | | | | | | + +---------+ + +-------+------+ +---+---+ | | | +---+---+ + +-------+ +---------+---+---+ | bivalirudin (ANGIOMAX) 5 mg/ml | Given | 11/04/19 | 78.9 mg | | | | in NS bolus bolus ONCE PRN, | | 17 11:53 | | | | | Starting Tue11/03/16 at 1153, | | AM PDT | | | | | Intra-op | | | | | | + +-------+ +---------+---+---+ +---+---+ | | | +---+---+ + +-------+ +---------+---+---+ | fentaNYL (PF) injection ONCE | Given | 11/04/19 | 100 mcg | | | | PRN, Starting 11/03/16 at | | 17 12:01 | | | | | 1154, Intra-op | | PM PDT | | | | + +-------+ +---------+---+---+ +-------+ +--------+---+---+ | Given | 11/04/19 | 50 mcg | | | | | 17 11:58 | | | | | | AM PDT | | | | +-------+ +--------+---+---+ | Given | 11/04/19 | 50 mcg | | | | | 17 11:54 | | | | | | AM PDT | | | | +-------+ +--------+---+---+ +---+---+ | | | +---+---+ + +-------+ +---------+---+---+ | iohexol (OMNIPAQUE 350) 350 | Given | 11/04/19 | 111 mLs | | | | mg/mL injection ONCE PRN, | | 17 12:37 | | | | | Starting 11/03/16 at 1237, | | PM PDT | | | | | Intra-op | | | | | | + +-------+ +---------+---+---+ +---+---+ | | | +---+---+ + +-------+ +-------+---+ + | lidocaine buffered 1% injection | Given | 11/04/19 | 5 mLs | | Other | | ONCE PRN, Starting 11/03/16 | | 17 11:55 | | | (Comment | | at 1154, Intra-op | | AM PDT | | | ) | + +-------+ +-------+---+ + +-------+ +-------+---+ + | Given | 11/04/19 | 3 mLs | | Other | | | 17 11:54 | | | (Comment | | | AM PDT | | | ) | +-------+ +-------+---+ + +---+---+ | | | +---+---+ + +-------+ +------+---+---+ | midazolam (VERSED) 1 mg/mL | Given | 11/04/19 | 1 mg | | | | injection ONCE PRN, Starting Wed | | 17 12:05 | | | | | 11/03/16 at 1154, Intra-op | | PM PDT | | | | + +-------+ +------+---+---+ +-------+ +------+---+---+ | Given | 11/04/19 | 1 mg | | | | | 17 12:01 | | | | | | PM PDT | | | | +-------+ +------+---+---+ | Given | 11/04/19 | 1 mg | | | | | 17 11:59 | | | | | | AM PDT | | | | +-------+ +------+---+---+ +---+---+ | | | +---+---+ + +-------+ +---------+---+---+ | niCARdipine in dextrose | Given | 11/04/19 | 200 mcg | | | | (CARDENE) 0.2 mg/ml syringe ONCE | | 17 12:13 | | | | | PRN, Starting Tue11/03/16 at | | PM PDT | | | | | 1213, Intra-op | | | | | | + +-------+ +---------+---+---+ +---+---+ | | | +---+---+ + +-------+ +--------+---+---+ | ticagrelor (BRILINTA) tablet | Given | 11/04/19 | 180 mg | | | | ONCE PRN, Starting Tue11/03/16 at | | 17 12:40 | | | | | 1240, Intra-op | | PM PDT | | | | + +-------+ +--------+---+---+ +---+---+ | | | +---+---+ documented in this encounter
--- OUTSIDE RECORDS SUMMARY | ~2020-03-18 | XMS | Encounter Summary ---
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 Score Evidence: 2 4-6 Stairs w/Assist Assessment: Pt will benefit from a 4WW to place portable O2 during ambulation so pt can be Mod I and maintain cervical precautions. Pt able to maintain O2 sat above 90% on 2L during a mbulation. Physical Therapy Discharge Recommendations are: Recommended discharge disposition: home with family/caregiver Post discharge physical therapy recommendation: outpatient therapy, ongoing low intensity therapy Plan for next treatment: CW, FWW, gait training Electronically signed by: KRYSTAL ANGELES, PT, 01/11/2015 18:41 lan of Ifeoma Crook RN - 01/11/2015 4:08 PM PDTProblem: Fall/Trauma/Injury Risk (Adult, Obstetrics) Goal: Identify Signs And Symptoms And Related Risk Factors Signs and symptoms and related risk factors are identified upon initiation of Human Respons e Clinical Practice Guideline (CPG) Outcome: Progressing Pt has good steady gait when ambulating, uses FWW with CGA. Calls out appropriately for soha ds. lan of Ifeoma Crook RN - 01/11/2015 4:07 PM PDTProblem: General Plan of Care (Adult, Obstetrics) Goal: Care Plan Shift Summary & Review . Outcome: Progressing Discharge instructions and Rx given to pt and spouse, aqua guards and extra bandaids given. Questions denied, pt assisted out by staff via wheelchair, discharged with O2 in place. lan of Antonina Lua Speech Pathologist - 01/11/2015 1:02 PM PDTProblem: General Plan of Care (Adult, Obstetrics) Goal: Care Plan Shift Summary & Review . Speech Therapy Swallow Plan of Care Treatment, Discharge Note Summary: Pt seen for lunch EOB w/o brace. Pt reported his swallow has improved a lot in recent days.He also mentioned that he has been able to eat soft breads, using liquid wash wi th no overt difficulty. DIESEL MACHINIST observed breads, mixed textures, meats, and thin liquids by darby blanchard. Pt had mild difficulty swallowing the meats even after he tried to chew it. He needed a l iquid wash. Pt stopped eating these textures. he was able to eat a biscuit but needed a liqu id wash with it. DIESEL MACHINIST provided education to he and his family about continuing to modify his diet at home for perhaps up to 2 weeks. DIESEL MACHINIST rec continuing his current [facility] soft chopped t and thin liquids, with ground meats. Pt is compliant with this as well as the family who nam chiu is staying with for 1 week post DC. Further DIESEL MACHINIST not needed at this time. Speech language pathology will follow Jose Raul Palafox 3 times/wk until discharge from [facility] or discharged from the hospital. Speech Language Pathology Discharge Recommendations are: Recommended discharge disposition: home with family/caregiver Post discharge speech language pathology recommendation: no further Speech Therapy Planned Interventions: diet texture modification, patient/caregiver education, concrete mixer y strategies, home program instruction DIESEL MACHINIST Diagnosis: MIld pharyngeal dysphaagia At bedside, signs of aspiration included: patient complaint of difficulty swallowing and t hroat clearing Risk of aspiration: Mild and Moderate Recommended solid texture: Dysphagia Advanced Recommended liquid thickness: Thin liquids Recommend medications be given: Swallow strategies: alternate between small bites and sips of food/liquid, maintain uprig ht posture during/after eating for 30 mins, small sips/bites, slow rate Patient Status/Goals: Reflects last filed data of patient status; may be from multiple contributors. Recommended Solid Texture: Dysphagia Advanced Recommended Liquid Texture: Thin liquids Recommended Feeding/Eating Techniques: alternate between small bites and sips of food/liqui d, maintain upright posture during/after eating for 30 mins, small sips/bites, slow rate Goal Swallow Swallow STG Status: Continued STG Swallow: Pt will tolerate least restricted diet with no overt s/s of airway compromise. Goal Solid Texture Solid Texture STG Status: Continued, Revised STG Solid Texture: Pt will tolerate soft, chopped textures with no overt s/s of airway comp romise in two sessions. Electronically signed by: Antonina Bean, SPEECH PATHO, 01/11/2015 13:02 Start Time: 1145 Stop time: 1210 Duration: 25 minutes 1:0 2 PM PDTPlan of Care - Gissell Tolbert MSW - 01/11/2015 12:19 PM PDTProblem: General Plan of Care (Adult, Obstetrics) Goal: Care Plan Shift Summary & Review . Outcome: Progressing Patient is needing home O2. Called [facility] as they have a contract with the [place]. Faxed O2 orde r, face sheet, and RT note to [facility] [phone]. Spoke with Justice, configuration analyst, at [facility] who st ated that he would go to the office to get the fax and bring portable O2 to the hospital rm [phone]. Let him know that patient is from [place] but will be staying with his mother in [facility] at d/c. Also, he stated that I will need to send paperwork to [facility]. Unknown of [facility] fax number so will send to [facility] [phone] with attention to RT. Fax came back "O K". Electronically signed by: JESSICA Boyd 01/11/2015 12:19 Spoke with Justice who stated that their fax machine is not currently working at this [facility]. He states that he will pick up driver the needed documentation when he brings his portable O2 to patient's room and will also deliver concentrator to his mothers home in [place] at d/c. Relayed this information to patient is he is agreeable. Electronically signed by: JESSICA Boyd 01/11/2015 12:52 Justice showed up with portable O2 and was given face sheet, O2 order, and RT note. He st ates that the [facility] will review Tuesday to determine payment for the O2. No further needs at dis charge. His mother will transport him home. lan o f Lupe - Sarai Hernandez RN - 01/11/2015 6:28 AM PDTProblem: General Plan of Care (Ad ult, Obstetrics) Goal: Care Plan Shift Summary & Review . Outcome: Progressing Had a good night. States pain is better controlled. Received hydrocodones for pain. Rece iving decadron q6h for right arm pain. Dressings on neck c/d/i. Wears brace for comfort wh en in bed. Ambulating in halls with O2 and sba. Hemovac draining approximately 40 cc seros ang output q6h. lan of Care - Salud Dorsey, HERBIE - 01/11/2015 5:51 AM PDTProblem: General Plan of Care (Adult, Obstetr ics) Goal: Care Plan Shift Summary & Review . Outcome: Progressing Patient's SpO2: 95 % on 1liters/minute nasal cannula. Breathing treatments given as schedu led. Breath sounds are clear anterior, expiratory wheezes posteriorly. Does PEP device wel l. lan of Care - Subha Ramirez ch, RN - 01/10/2015 8:23 PM PDTProblem: General Plan of Care (Adult, Obstetrics) Goal: Care Plan Shift Summary & Review . Outcome: Progressing Pt c/o increased pain in right arm today. Tingling down arm from elbow. Also more pain in n lori and shoulders. Trying to wean off morphine but still needing it for breakthrough pain. T aking [facility] and Valium routinely. Wearing his collar with activity, states this helps with p ain control too. Up ambulating with FWW and SBA. Gait steady. Wearing O2 at 1L via NC. Hemov ac drain intact. Drainage decreasing, still moderate. Incision sites CDI with bandaids in pl cosme. Spoke with Emmy Remy and pt to have 4 doses of decadron to see if this will reliev e some the pain and increase gabapentin dose. Plan is for dc home tomorrow if pain is better and drain output decreased. lan of Care - Braxton Aragon RRT - 01/10/2015 6:09 PM PDTProblem: General Plan of Care (Adult, Obstetr ics) Goal: Care Plan Shift Summary & Review . Outcome: Progressing Pt is on 1 L/min nasal cannula with a SpO2 of 97 % and a heart rate of 68. Breath sounds ar e clear clear, crackles clear. Pt has a good, nonproductive cough. Pt has a rate regular, pa ttern regular, unlabored.PF's 260/320 and 265/325.Electronically Signed by: BRAXTON YOUSIF RRT 01/10/2015 18:09 lan of Care - Krystal Angeles PT - 01/10/2015 12:06 PM PDTPhysical Therapy Daily Treatment Note Patient Information Patient Name: Jose Raul Palafox Date of : 1960 Age: 54 y.o. Precautions/Limitations: fall precautions, orthotic/bracing LUE Weight-Bearing Status: (No overhead push, pull, lifting) RUE Weight-Bearing Status: full weight-bearing (No overhead push, pull, lifting) LLE Weight-Bearing Status: full weight-bearing RLE Weight-Bearing Status: full weight-bearing Start Time: 1115 Stop time: 1131 Time Calculation: 16 minutes Missed Treatment Time: minutes Total Treatment Time: 16 minutes TimedTreatment Code Minutes: 26 minutes Subjective: Pt reported increasing pain on cervical spine radiating to elbows 8.5/10 prior to tx and 9/10 after. Pt had pain meds 1 hr prior to tx. Objective: Treatment Provided: Stair training x 4 steps x 2 sets (L) HR for support alternating patter n SBA. Bed mobility training sit to supine Mod I. Education: Cervical precautions (B) collar. Patient Status/Goals: Reflects last filed data of patient status; may be from multiple contributors. FIM: FIM Transfers Bed/Chair/Wheelchair: 4 Stairs: 2 Stairs Score Evidence: 2 4-6 Stairs w/Assist Assessment: Pt was not able to participate on gait training d/t increasing cervical pain an d had just finished walking with OT. Pt did not c/o dizziness today when up. Cont. POC and will benefit from continued skilled PT services for safe d/c to home. Physical Therapy Discharge Recommendations are: Recommended discharge disposition: home with family/caregiver Post discharge physical therapy recommendation: outpatient therapy, ongoing low intensity therapy Plan for next treatment: CW, FWW, gait training Electronically signed by: KRYSTAL ANGELES PT, 01/10/2015 12:13 lan of Care - Randall, Esther Dempsey RN - 01/10/2015 5:39 AM PDTProblem: General Plan of Care (Adult, Obstetrics) Goal: Care Plan Shift Summary & Review . Outcome: Progressing Patient able to sleep more this HS. Patient still rating pain level high, but seems more co mfortable from previous night. Medicating with po hydrocodone, po Valium and IV morphine whi ch we decreased from 4 mg to 2 mg. Cervical collar B brace. Independent in room with FWW. He movac draining serosanguineous fluid. Complaining of more pain down bilateral arms with freq uent numbness into hands. Band aid to right anterior neck with some dried drainage. Band aid s x 3 to posterior neck CDI. Swallowing better, patient reports less pain in throat from pre vious night. Complaining of more itching this HS, medicated with po Benadryl. Patient given Senna, Docusate and MOM with evening meds. Patient reports no BM but is passing gas. lan of Care - Ashley mead, Subha Smith RN - 01/09/2015 6:40 PM PDTProblem: General Plan of Care (Adult, Obstetrics) Goal: Care Plan Shift Summary & Review . Outcome: Progressing Pt doing better today. States he thinks his swallow has improved somewhat. Still having a l ot of pain in his neck and states his right arm will have intermittent numbness and tingling and pain. Able to don his cervical collar ind. Ambulating with FWW and SBA. Did c/o dizzine ss when up with PT in the morning but improved t/o the day. C/o constipation. Has only had a very small hard stool. Colace, Senna and Miralax given today. Previously had lactulose. Amadou ing [facility] routinely every 4 hours and has been requesting Morphine about every 4 hours also. ANDREA drain dc'd anterior incision bandaid is CDI, posterior bandaids also CDI. Hemovac drain with 100cc bloody drainage. Pt is hoping to go home tomorrow. lan of Care - Jed contreras, Caity N, RICE - 01/09/2015 5:02 PM PDTProblem: General Plan of Care (Adult, Obstetrics) Goal: Care Plan Shift Summary & Review . Occupational Therapy Daily Treatment Note Patient Information Patient Name: Jose Raul Palafox Date of : 1960 Age: 54 y.o. Precaution/special problems: Precautions/Limitations: fall precautions, orthotic/bracing L UE weight-bearing Status: LUE Weight-Bearing Status: (No overhead push, pull, lifting) R UE weight-bearing Status: RUE Weight-Bearing Status: full weight-bearing (No overhead pus h, pull, lifting) L LE weight-bearing Status: LLE Weight-Bearing Status: full weight-bearing R LE weight-bearing Status: RLE Weight-Bearing Status: full weight-bearing Start Time: 1400 Stop time: 1430 Time Calculation: 30 minutes Missed Treatment Time: 0 minutes Total Treatment Time: 30 minutes TimedTreatment Code Minutes: 30 minutes Subjective: " I have a grab bar in my shower seat " Objective: Pt seen for bed mobility/donning/duffing cervical B brace and BUE/BLE dressing tasks from s itting EOB. Donned duffed brace Independent, donned shirt w/ min A as it was a bit small and donned pants w/ supervision. Pt is able to t/f in/out of bed with SBA . Education: Safety,spine precautions w/ fxl mobility Treatment Provided: ADL training Patient Status/Goals Reflects last filed data of patient status; may be from multiple contributors. FIM: FIM Self Care Dressing - Upper Body: 4 Dressing Upper Score Evidence: 4 Steadying, 5 Verbal Cues, 5 Safety Supervision, 6 Extra T rosetta, 5 Get Clothing Dressing - Lower Body: 5 Dressing Lower Score Evidence: 5 Safety Supervision, 5 Verbal Cues, 5 Get Clothing Assessment: Progressing as he recited/followed spine precautions during log roll>EOB and du ring BUE,BLE dressing tasks. Reported he has all the AE he needs in br at home and will be assisting him as needed. To see pt for shower t/f tomorrow. Occupational Therapy Discharge Recommendations are: Recommended discharge disposition: Recommended Discharge Disposition(OT): home with family /caregiver, ADL assist, safety assist Post discharge occupational therapy recommendation: Post D/C Occupational Therapy Recommen dations: no further OT Plan for next treatment: 1P,NK/tub t/f/review questions/concerns Electronically signed by: DWAYNE Harris, 01/09/2015 16:55 lan of Care - Krystal German, PT - 01/09/2015 12:19 PM PDTPhysical Therapy Daily Treatment Note Patient Information Patient Name: Jose Raul Palafox Date of : 1960 Age: 54 y.o. Precautions/Limitations: fall precautions, orthotic/bracing (Cervical precautions, B-Collar ) LUE Weight-Bearing Status: (No overhead push, pull, lifting) RUE Weight-Bearing Status: full weight-bearing (No overhead push, pull, lifting) LLE Weight-Bearing Status: full weight-bearing RLE Weight-Bearing Status: full weight-bearing Start Time: 824 Stop time: 0851 Time Calculation: 26 minutes Missed Treatment Time: minutes Total Treatment Time: 26 minutes TimedTreatment Code Minutes: 26 minutes Subjective: Pt agreed to work with PT and c/o dizziness during gait training with BP at res t 168/94 mmHg, 161/93 mmhg taken in sitting and after walking 155/104 mmHg. Informed RN on duty Roxana about this. Objective: Treatment Provided: transfer training CGA with FWW bed to w/c verbal cues to lock brakes pr ior to standing. Gait training with FWW x 30' + 20' CGA verbal cues for increased step yanelis th to normalize gait pattern. Education: Proper fitting of neck brace. Pt still need further educ. Patient Status/Goals: Reflects last filed data of patient status; may be from multiple contributors. FIM: FIM Transfers Bed/Chair/Wheelchair: 4 Bed/Chair/WC Score Evidence: 4 Steadying FIM Locomotion Walk: 2 Distance Walked (feet): 75 feet Walk Score Evidence: 2 Pt 25-49% Effort/50-149ft FIM Modifier DC Locomotion: walk Stairs: 0 Stairs Score Evidence: 0 Did Not Occur Assessment: Pt's participation is limited by increased BP and dizziness. Cont. Skilled PT t o inc.independence on functional mobility for safe d/c to home. Pt desaturates to 88% on ro om air during gait training and will need supplemental O2 at 1L. RT was present during gait training. Physical Therapy Discharge Recommendations are: Recommended discharge disposition: home with family/caregiver Post discharge physical therapy recommendation: outpatient therapy, ongoing low intensity therapy Plan for next treatment: CW, 2P FWW, c/o dizziness, high BP Electronically signed by: KRYSTAL ANGELES, PT, 01/09/2015 12:19 lan of Care - Garry crocker, Shazia Smith, Speech Pathologist - 01/09/2015 12:08 PM PDTProblem: General Plan of Care (Best santost, Obstetrics) Goal: Care Plan Shift Summary & Review . Speech Therapy Swallow Plan of Care Treatment Note Summary: Pt was seen at lunchtime at bedside in upright position for treatment. Pt kept brace on while eating. The texture on the patient's tray was a soft, chopped texture, per pt request. Pt stated that soft, chopped texture was the most comfortable texture for him. DIESEL MACHINIST will change diet to soft, chopped texture. Pt swallowed soft, chopped texture and thin liqu ids with no overt s/s of airway compromise. Speech language pathology will follow Jose Raul Palafox 3 times/wk until discharge from [facility] or discharged from the hospital. Speech Language Pathology Discharge Recommendations are: Recommended discharge disposition: home with family/caregiver Post discharge speech language pathology recommendation: no further Speech Therapy Planned Interventions: diet texture modification, patient/caregiver education, concrete mixer y strategies, home program instruction DIESEL MACHINIST Diagnosis: MIld pharyngeal dysphaagia At bedside, signs of aspiration included: None Risk of aspiration: Mild Recommended solid texture: Dysphagia Advanced Recommended liquid thickness: Thin liquids Recommend medications be given: Swallow strategies: alternate between small bites and sips of food/liquid, maintain uprig ht posture during/after eating for 30 mins, small sips/bites, slow rate Patient Status/Goals: Reflects last filed data of patient status; may be from multiple contributors. Recommended Solid Texture: Dysphagia Advanced Recommended Liquid Texture: Thin liquids Recommended Feeding/Eating Techniques: alternate between small bites and sips of food/liqui d, maintain upright posture during/after eating for 30 mins, small sips/bites, slow rate Goal Swallow Swallow STG Status: New STG Swallow: Pt will tolerate least restricted diet with no overt s/s of airway compromise. Goal Solid Texture Solid Texture STG Status: New STG Solid Texture: Pt will tolerate dysphagia advanced textures with no overt s/s of airway compromise in two sessions. lan of Care - Dalila iRvera RN - 01/09/2015 10:13 AM PDTProblem: General Plan of Car e (Adult, Obstetrics) Goal: Care Plan Shift Summary & Review . Outcome: Progressing I visited today with Jose Raul and his Spouse about discharge planning. Jose Raul lives with his S pouse in [place], [place], in a one level house with three steps and a hand rail leading up to the front door. They will be staying with his Mg[place]ie in [place], [place] during the fi rst part of his recovery. He owns a walker, walk in shower, shower bench and double canes. [facility] Gary Gomez. He chose [facility] as his DME ag ency as he thinks he will need O2 at home. Both Jose Raul and his Spouse said that they wanted to take care of HH and PT thru their PCP themselves. They had no other needs or questions a t this time. Electronically signed by: Dalila Rivera RN 01/09/2015 10:13 lan of Care - Esther Dong RN - 01/09/2015 7:44 AM PDTProblem: General Plan of Care (Adult, Obstetrics) Goal: Care Plan Shift Summary & Review . Outcome: Progressing Patient slept intermittently during HS. Still complaining of lots of pain, medicated with I V morphine and po hydrocodone. Routine Decadron given but patient reported no difference in pain and swallowing ability. Line Repairer and plantar/dorsi strong. MS RUE 4/5 all other extremitie s 5/5. ANDREA and Hemovac draining serosanguineous fluid with decreased output. at bedside. lan of Care - [facility], Salud Danielle, DIRECTOR WORK - 01/09/2015 6:17 AM PDTProblem: General Plan of Care (Adult, Obstetrics) Goal: Care Plan Shift Summary & Review . Outcome: Progressing Patient's SpO2: 95 % on 1liters/minute nasal cannula. Breathing treatments given as schedu led. Breath sounds are clear. One PRN treatment given through night for shortness of breat h. lan of Care - [facility] Antonina Reza, Speech Pathologist - 01/08/2015 5:40 PM PDTProblem: General Plan o f Care (Adult, Obstetrics) Goal: Care Plan Shift Summary & Review . Speech Therapy Swallow Plan of Care Initial Evaluation, Treatment Note Summary: Initial swallow eval completed today per doctor's order. Pt seen upright in bed with present. B brace on. DIESEL MACHINIST positioned Pt upright to 90 degrees and removed brace fo r lunch session. Pt began to have extreme pain in posterior neck during oral motor exam and needed the brace applied and to be laid down. RN gave morphine. DIESEL MACHINIST left and visited Pt late r when he was ready to eat. With brace on, Pt needed assistance with self feeding as using h is arms hurt too much. logistics solution manager fed Pt bites of his regular texture lunch. THough nearly edentate , Pt was able to chew and swallow beef, green beans and roll. Pt reported that the raw radha ts where difficulty to swallow and coughed one back up. DIESEL MACHINIST educated on diet texture modific ation, and rec dysphagia advanced and thin liquids. and Pt are compliant with this. Pt needs RED TRAY as he has a lot of pain with arm movment. DIESEL MACHINIST will check on Pt at next schedu led visit to monitor for diet tolerance and provide take home information. Speech language pathology will follow Jose Raul Palafox 3 times/wk until discharge from [facility] or discharged from the hospital. Speech Language Pathology Discharge Recommendations are: Recommended discharge disposition: home with family/caregiver Post discharge speech language pathology recommendation: no further Speech Therapy Planned Interventions: diet texture modification, patient/caregiver education, concrete mixer y strategies, home program instruction DIESEL MACHINIST Diagnosis: MIld pharyngeal dysphaagia At bedside, signs of aspiration included: patient complaint of difficulty swallowing, thro at clearing and coughing food back up Risk of aspiration: Mild Recommended solid texture: Dysphagia Advanced Recommended liquid thickness: Thin liquids Recommend medications be given: Swallow strategies: alternate between small bites and sips of food/liquid, maintain uprig ht posture during/after eating for 30 mins, small sips/bites, slow rate Patient Status/Goals: Reflects last filed data of patient status; may be from multiple contributors. Recommended Solid Texture: Dysphagia Advanced Recommended Liquid Texture: Thin liquids Recommended Feeding/Eating Techniques: alternate between small bites and sips of food/liqui d, maintain upright posture during/after eating for 30 mins, small sips/bites, slow rate Goal Swallow Swallow STG Status: New STG Swallow: Pt will tolerate least restricted diet with no overt s/s of airway compromise. Goal Solid Texture Solid Texture STG Status: New STG Solid Texture: Pt will tolerate dysphagia advanced textures with no overt s/s of airway compromise in two sessions. Electronically signed by: Antonina Bean SPEECH PATHO, 01/08/2015 17:40 Start Time: 1205 Stop time: 1215 Start: 1230 Stop: 1245 Duration: 30 minutes 5:4 0 PM PDTPlan of Care - Dima May, DIRECTOR WORK - 01/08/2015 5:19 PM PDT Problem: General Plan of Care (Adult, Obstetrics) Goal: Care Plan Shift Summary & Review . Outcome: Progressing BS clear but distant bases, SpO2 on 1 lpm NC 95%, controled NPC Severity Score 10 Class 3 Severity Score 0-4 ITEM 0 1 2 3 4 2 Respiratory History No Smoking history Current tobacco use Up to 10 Pack year history. Simple home regimen Known Pulmonary Disease 20 pack year history Complex Home regimen 30+ pack year history Severe Pulmonary Disease or exacerbation 3 Surgery Status (current admission) No surgery Minor [...] Purse Lip Breathing, Use of accessory muscles 2 Breath Sounds Clear Diminished unilaterally Diminished bilaterally [...] 3 12-14 4 15+ 5 lan of [facility], Carissa Talbot OT - 01/08/2015 3:33 PM PDT Occupational Therapy Acute Initial Evaluation Note Patient Information Patient Name: Jose Raul Palafox Date of : 1960 Age: 54 y.o. History Encounter Diagnoses Code Name Primary? 070.70 Hepatitis C virus infection, unspecified chronicity 333.94 Restless leg syndrome 496 COPD (chronic obstructive pulmonary disease) (HCC)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 roots were found to be well decompressed. The clean disk space was sized appropriately with a trial interbody cage, and to achieve ar throdesis, the endplates were abraded again, and permanent 7 x 14 x 11 mm cortical cancellou s bone was chosen and inserted into the disk space. It fit well and was snug. Attempt was made to access the C7-T1 level. The sternum prevented proper retraction at that level and the anterior approach was aborted. Next, the [place] distraction pins were placed at the C3-4 level, and the diskectomy was ini tiated with a #11 blade at the C3-4 level. Diskectomy was carried out utilizing pituitary ro ngeurs, Kerrison rongeurs, and curettes to widen and remove the anterior disk-spur complex. The diskectomy was carried down to the level of the posterior longitudinal ligament using hi gh-speed electric drilling. Then, abrasion of the disk endplates was performed, and the post erior disk-spur complexes were removed down to the level of the posterior longitudinal ligam ent. The PLL was entered with 1B Codman curette. It was excised completely to fully expose t he dura and further decompress the spinal cord. The osteophytectomy was completed with high-speed electric drilling to excise osteophytes a t the posterior margin of the superior and inferior endplates and the neural foramina bilate rally. These were decompressed using high-speed electric drilling as well as Kerrison rongeu rs. Using a blunt nerve hook, the foramina and undersurface of both vertebral bodies were tr acked, and exiting nerve root was found to be well decompressed. The clean disk space was sized appropriately with a trial, and a 5 x 14 x 11 mm cortical ca ncellous bone from [employer] was chosen, and to achieve arthrodesis, endplates of the disk s pace were abraded again, and then, the permanent spacer was inserted into the disk space. It fit well and was snug. Next, the [place] pins were removed and bone wax was placed where the pins were to arrest will ne bleeding. A 80 mm [employer] plate was chosen. This is by [employer]. It was p laced on top of the spine. There were large anterior osteophytes, which were drilled down un til the plate fit appropriately, and then, 4.0 x 17 mm variable angled screws were placed at each hole in the plate at C3. Two 4 x 16 mm variable angle screws were placed at C4. Two 4 x 16 mm variable angle screws were placed at C5. Two 4 x 16 mm variable angle screws were pl aced at C6. Two 4 x 17 mm variable angle screws were placed at C7. A total of 10 screws were placed, 2 in each level from C3 to C7. Fluoroscopic x-ray confirmed acceptable placement of the spacers, plate, and screws. The wo und was inspected, and hemostasis was achieved. A Arian-Hook drain was placed, and a 3-0 Vicryl suture was used to reapproximate the platysmal layer in running fashion. A 4-0 Vicryl suture was used to reapproximate the subcuticular layer in running fashion. Mastisol and St juana-Strips were placed over the incisions, and the Arian-Hook drain was taped into place. All sponge counts, needle counts, and instrument counts were correct at the end of this por tion the case x2. Next, a Tay head clamp was applied. The patient was turned prone on a Arian table. A ll pressure points were carefully padded. The patient was prepped and draped in standard sterile fashion. Local anesthetic was infilt rated along the planned skin incision, which was subsequently opened sharply with a #10 scal pel blade. Further dissection was carried down in the midline until the level of the suprasp inous ligament using bipolar forceps and Bovie electrocautery for hemostasis. The muscle was elevated subperiosteally from C2-T2. Hemostasis was achieved. Self retaining retractors wer e then inserted and a spinous process clamp was affixed to the C2 spinous process for purpos es of spinal navigation. Next, O-arm was draped sterilely and brought into the operative field. The levels of intere st which were C3-T2 were scanned with O-arm and coregistered with the neuronavigational syst em. The Stealth probe was utilized to determine ideal trajectory of screws from C3-T2 [facility]. Using high speed electric drilling, pilot control operator helper holes were drilled bilaterally into lateral masses of C3-C6. All holes were sounded with a blunt feeler probe and were felt to be surro unded by cortical bone. All holes were approximately 14 mm in depth. A navigated pedicle fin aldo were used to cannulate the T1 and T2 pedicles bilaterally. [employer] Vertex screws were placed in lateral masses, 14-mm x 3.5-mm screws were placed in the right C3, C4, C5, C6, and the left C6 lateral masses. 16-mm x 3.5-mm screws were placed in the leftC3, C4, and C5 lat eral masses. At T1, a 4.5-mm x 24-mm screw was placed on the left. A 4.5-mm x 30-mm screw wa s placed on the right. At T2 a 4.5-mm x 30-mm screw was placed bilaterally. Laminectomy for the purpose of decompression of the spinal cord was performed at C6, C7, T1 , T2. Ligamentum flavum was uplifted. The laminectomies were widened with Kerrison roungeurs . Hemostasis was achieved. The dura wa found to be pulsating well after this portion of the procedure. Subsequently, rods were cut and bent into the cervical curvature. They were 3.5 mm rods. Th e rods were inserted into the screws and were tightened with set screws and torqued to the m anufacturer's recommended torque. Fluoroscopy confirmed good placement of the screws and lalitha s. Visible cortical bone of the posterolateral masses were decorticated to prepare for arthr odesis. Mangafuse was used and placed bilaterally over the area where the posterolateral mas ses had been superficially decorticated to achieve good arthrodesis. A Hemovac drain was left in place. Hemostasis was again meticulously achieved using bipolar and Bovie electrocautery. The wound was copiously irrigated. The muscle was reapproximated with #1 Vicryl and the fascia was closed with #1 Vicryl in interrupted fashion. The subcutan eous tissue was brought together with 2-0 Vicryl in buried interrupted fashion and the subcu ticular layer was approximated with 2-0 Vicryl sutures in subcuticular fashion. The skin was approximated with skin duy and Mastisol and Steri-Strips were placed over the entire wo und. Sponge and needle counts were correct at the end of the case x2. All pressure points re mained padded throughout the entire case. The patient tolerated the procedure well and was t ransferred into the recovery room in stable condition. rief Op Note - Aleksander Stern DO - 01/07/2015 7:30 PM P DT Brief Operative Note Jose Raul Palafox 54 y.o. male 1960 [id number] Proc. Date 01/07/2015 Preop Dx Acquired spondylolisthesis Postop Dx same Procedure ACDF C3-7, posterior cervical fusion C3-T2, laminectomy C6-T2 Anesthesia General Surgeon Aleksander Stern DO [employer] YUNIER Porter EBL 350 mL Findings Findings consistent with scheduled procedure. No other abnormalities found. Complications none Specimens * No specimens in log * Drains Drain/Device Site 01/07/15 1544 #1 anterior cervical spine collapsible closed device (A ctive) Electronically signed by: Aleksander Stern DO 01/07/2015 19:30 [facility] lan of Care - Mayito skinner, Ryan Kwon, PT - 01/07/2015 7:16 PM PDTProblem: General Plan of Care (Adult, Obstetrics) Goal: Care Plan Shift Summary & Review . Missed Visit Patient Information Patient Name: Jose Raul Palafox Date of : 1960 Age: 54 y.o. The patient was unable to be seen for today's scheduled visit due to patient still in [facility] at this time. Plan: Eval tomorrow Electronically signed by: Ryan Whaley, PT, 01/07/2015 19:15 documented in thi s encounter Plan of Treatment + +------+--------+ + + | Name | Type | Priori | Associated Diagnoses | Order Schedule | | | | ty | | | + +------+--------+ + + | DME: Oxygen Therapy | DME | Routin | COPD (chronic | DME 1 Time for 1 | | | | e | obstructive | Occurrences starting | | | | | pulmonary disease) | 01/11/2015 until | | | | | ([facility]) Asthma, | 01/11/2015 | | | | | unspecified asthma | | | | | | severity, | | | | | | uncomplicated | | + +------+--------+ + + documented as of this encounter Procedures + +--------+ + + + | Procedure Name | Priori | Date/Time | Associated Diagnosis | Comments | | | ty | | | | + +--------+ + + + | XR CERVICAL SPINE 2 | STAT | 01/07/2015 | | Results for this | | OR 3 VIEWS | | 10:01 PM | | procedure are in the | | | | PDT | | results section. | + +--------+ + + + | FL CONSTANCE STATS NO | Routin | 01/07/2015 | | Results for this | | CHARGE | e | 6:41 PM | | procedure are in the | | | | PDT | | results section. | + +--------+ + + + | LAMINECTOMY CERVICAL | | 01/07/2015 | Acquired | | | POSTERIOR W/ FUSION | | 11:45 AM | spondylolisthesis | | | CERVICAL ANTERIOR | | PDT | | | + +--------+ + + + +---+--------+ | | Case | | | Notes | | | | | | Origin | | | al | | | Schedu | | | ler | | | Commen | | | ts/Not | | | es | | | Sent | | | Over | | | 12/12/ | | | 2014 @ | | | | | | 1307:C | | | -Arm, | | | Drill, | | | | | | Micros | | | cope | | | Est | | | time: | | | 6H | | | Mayfie | | | ldO-Ar | | | m, | | | Stealt | | | h | | | Biolog | | | ics: | | | Grafto | | | n | | | Paste | +---+--------+ | | | | | Specia | | | l | | | Needs | | | Valerio | | | | | | Quinton | | | - | | | Atlant | | | is | | | Transi | | | tional | | | , | | | Vertex | | | , Bone | | | | | | Spacer | +---+--------+ + +--------+ + + + | TYPE AND SCREEN | Routin | 01/07/2015 | | Results for this | | | e | 8:37 AM | | procedure are in the | | | | PDT | | results section. | + +--------+ + + + | PTT | Routin | 12/31/2014 | Hepatitis C virus | Results for this | | | e | 12:47 PM | infection, | procedure are in [...] + + + | PROTIME INR | Routin | 12/31/2014 | Hepatitis C virus | Results for this | | | e | 12:47 PM | infection, | procedure are in [...] XR CERVICAL SPINE 2 OR 3 VIEWS (01/07/2015 10:01 PM PDT) + + | Specimen | + + | | + + + + + | Narrative | Performed At | + + + | XR CERVICAL SPINE 2 OR 3 VIEWS. 01/07/2015 10:01 PM HISTORY: | [facility] | | post op cervical surgery . COMPARISON: 11/06/2014 FINDINGS: | | | Interval placement of anterior cervical fusion hardware spanning the | | | levels of C3 through C7 with graft material at the intervening | | | levels, with simultaneous interval placement of posterior spinal | | | fusion hardware spanning the levels of C3 through T2. There is no | | | evidence of hardware complication or subsidence postsurgical change | | | seen in the prevertebral soft tissues, as well as in the soft tissues | | | of the posterior neck. Drainage tube seen anterior to the | | | operative site. IMPRESSION - Anterior and posterior fusion of | | | the cervical spine involving the levels of C3-T2, as described above, | | | without evidence of complication. Dictated and Signed by: Kong | | | MD Dora Electronically signed: 01/08/2015 10:38 AM | | + + + + + | Procedure Note | + + | Ascencion, Rad Results In - 01/08/2015 10:41 AM PDT XR CERVICAL SPINE 2 OR 3 VIEWS. | | 01/07/2015 10:01 PMHISTORY: post op cervical surgery . COMPARISON: | | 11/06/2014FINDINGS:Interval placement of anterior cervical fusion hardware spanning the | | levels ofC3 through C7 with graft material at the intervening levels, with | | simultaneousinterval placement of posterior spinal fusion hardware spanning the levels | | of M5hptqxth T2. There is no evidence of hardware complication or | | subsidencepostsurgical change seen in the prevertebral soft tissues, as well as in | | thesoft tissues of the posterior neck. Drainage tube seen anterior to theoperative | | site.IMPRESSION -Anterior and posterior fusion of the cervical spine involving the | | levels ofC3-T2, as described above, without evidence of complication.Dictated and Signed | | by: Kong John MD Electronically signed: 01/08/2015 10:38 AM | |postsurgical change seen in the prevertebral soft tissues, as well as in the | |soft tissues of the posterior neck. Drainage tube seen anterior to the | |operative site. | | | | | |IMPRESSION - | |Anterior and posterior fusion of the cervical spine involving the levels of | |C3-T2, as described above, without evidence of complication. | | | |Dictated and Signed by: Kong John MD | | Electronically signed: 01/08/2015 10:38 AM | + + + +---------+ + + | Performing | Address | City/State/Zipcode | Phone Number | | Organization | | | | + +---------+ + + | [facility] | | | | + +---------+ + + [place] C-Arm Stats No Charge (01/07/2015 6:41 PM PDT) + + | Specimen | + + | | + + + + + | Narrative | Performed At | + + + | No Radiologist interpretation, please see Chart Review. | [facility] | + + + + +---------+ + + | Performing | Address | City/State/Zipcode | Phone Number | | Organization | | | | + +---------+ + + | [facility] | | | | + +---------+ + + Type and Screen (01/07/2015 8:37 AM PDT) + + + + + + | Component | Value | Ref Range | Performed | Pathologist | | | | | At | Signature | + + + + + + | ABO | O | | [facility] | | | | | [facility] | | | | | [facility] | | | | | [facility] - | | | | | | [facility]LOOD BANK | | + + + + + + | Rh Type | Positive | | [facility] | | | | | [facility] | | | | | [facility] | | | | | [facility] - | | | | | | [facility]LOOD BANK | | + + + + + + | Antibody | Negative | | [facility] | | | Screen | | | [facility] | | | | | | [facility] | | | | | | [facility] - | | | | | | BLOOD BANK | | + + + + + + + + | Specimen | + + | Blood specimen | | (specimen) | + + + + + + + | Performing | Address | City/State/Zipcode | Phone Number | | Organization | | | | + + + + + | [facility] | [address] | [place] | | | [facility] | | [address] | | | - BLOOD BANK | | | | + + + [...] [address] | [place] | [phone] | | [facility] | | [address] | | | - LABORATORY | | | | + + + + + Nafisa INR (12/31/2014 12:47 PM PDT) + + + + + + | Component | Value | Ref Range | Performed | Pathologist | | | | | At | Signature | + + + + + + | Prothrombin | 13.9 | 11.3 - 13.9 | [facility] | | | Time | | seconds | [facility] | | | | [...] | + + + + + | [facility] | [address] | [place], [place] | [phone] | | [facility] | | [address] | | | - LABORATORY | | [...] health | + + documented in this encounter Administered Medications + +--------+ +--------+------+------+ | Medication Order | MAR | Action | Dose | Rate | Site | | | Action | Date | | | | + +--------+ +--------+------+------+ | albuterol 2.5 mg/3 mL nebulizer | Given | 01/09/20 | 2.5 mg | | | | solution 2.5 mg 2.5 mg, | | 15 7:28 | | | | | Nebulization, RT Q6H, First dose | | AM PDT | | | | | on e 01/07/15 at 2245, | | | | | | | Therapeutic Interchange for | | | | | | | Advair. RT will administer., | | | | | | + +--------+ +--------+------+------+ +-------+ +--------+---+---+ | Given | 01/08/20 | 2.5 mg | | | | | 15 11:48 | | | | | | PM PDT | | | | +-------+ +--------+---+---+ +---+---+ | | | +---+---+ + +-------+ +--------+---+---+ | albuterol 2.5 mg/3 mL nebulizer | Given | 01/10/20 | 2.5 mg | | | | solution 2.5 mg 2.5 mg, | | 15 1:57 | | | | | Nebulization, RT EVERY 4 HOURS | | AM PDT | | | | | PRN, Shortness of Breath, | | | | | | | Starting Tue01/08/15 at 1017, RT | | | | | | | will administer., | | | | | | + +-------+ +--------+---+---+ +---+---+ | | | +---+---+ + +-------+ +--------+---+---+ | budesonide (PULMICORT) 0.5 mg/2 | Given | 01/09/20 | 0.5 mg | | | | mL nebulizer solution 0.5 mg | | 15 7:28 | | | | | 0.5 mg, Nebulization, RT BID, | | AM PDT | | | | | First dose on Tue01/08/15 at | | | | | | | 0900, Therapeutic Interchange for | | | | | | | Advair. RT will administer. | | | | | | | Shake well. Protect from light. | | | | | | | Rinse mouth after use., | | | | | | + +-------+ +--------+---+---+ +---+---+ | | | +---+---+ + +-------+ +--------+---+---+ | budesonide (PULMICORT) 0.5 mg/2 | Given | 01/12/20 | 0.5 mg | | | | mL nebulizer solution 0.5 mg | | 15 5:44 | | | | | 0.5 mg, Nebulization, RT BID, | | AM PDT | | | | | First dose (after last | | | | | | | modification) on Tue01/08/15 at | | | | | | | 1800, Therapeutic Interchange for | | | | | | | Advair. RT will administer. | | | | | | | Shake well. Protect from light. | | | | | | | Rinse mouth after use., | | | | | | + +-------+ +--------+---+---+ +-------+ +--------+---+---+ | Given | 01/11/20 | 0.5 mg | | | | | 15 5:36 | | | | | | PM PDT | | | | +-------+ +--------+---+---+ | Given | 01/11/20 | 0.5 mg | | | | | 15 5:30 | | | | | | AM PDT | | | | +-------+ +--------+---+---+ + +---+ | | | + +---+ | busPIRone (BUSPAR) 15 mg tablet | | | Starting Tue01/07/15 at 2243, | | | For 1 dose, JOSE JADE: | | | janell ortiz, | | + +---+ | | | + +---+ + +-------+ +-------+---+---+ | busPIRone (BUSPAR) tablet 15 mg | Given | 01/12/20 | 15 mg | | | | 15 mg, Oral, EVERY 12 HOURS (2 | | 15 8:25 | | | | | times per day), First dose on Tue | | AM PDT | | | | | 01/07/15 at 2200, Post-op/Phase | | | | | | | II | | | | | | + +-------+ +-------+---+---+ +-------+ +-------+---+---+ | Given | 01/11/20 | 15 mg | | | | | 15 10:03 | | | | | | PM PDT | | | | +-------+ +-------+---+---+ | Given | 01/11/20 | 15 mg | | | | | 15 9:52 | | | | | | AM PDT | | | | +-------+ +-------+---+---+ +---+---+ | | | +---+---+ + +---------+ +-----+-------+---+ | ceFAZolin in dextrose (ANCEF) | New Bag | 01/09/20 | 2 g | 100 | | | IVPB 2 g 2 g, Intravenous, | | 15 5:42 | | mL/hr | | | Administer over 30 Minutes, EVERY | | AM PDT | | | | | 8 HOURS INTERVAL, First dose on | | | | | | | 01/07/15 at 2200, For 2 doses, | | | | | | | Start 8 hours after previous | | | | | | | dose. Last dose to be given | | | | | | | within 24 hours of surgery end | | | | | | | time., Post-op/Phase II | | | | | | + +---------+ +-----+-------+---+ +---------+ +-----+-------+---+ | New Bag | 01/08/20 | 2 g | 100 | | | | 15 10:45 | | mL/hr | | | | PM PDT | | | | +---------+ +-----+-------+---+ +---+---+ | | | +---+---+ + +-------+ +------+---+---+ | dexamethasone (DECADRON) 10 | Given | 01/10/20 | 4 mg | | | | mg/mL injection 4 mg 4 mg, | | 15 11:24 | | | | | Intravenous, EVERY 6 HOURS (4 | | AM PDT | | | | | times per day), First dose on Tue | | | | | | | 01/08/15 at 1800, For 4 doses, | | | | | | | When ordered IV push: Dilute to | | | | | | | 10-20 mL with NS and give slowly | | | | | | | over 1-2 minutes., | | | | | | + +-------+ +------+---+---+ +-------+ +------+---+---+ | Given | 01/10/20 | 4 mg | | | | | 15 6:43 | | | | | | AM PDT | | | | +-------+ +------+---+---+ | Given | 01/09/20 | 4 mg | | | | | 15 11:47 | | | | | | PM PDT | | | | +-------+ +------+---+---+ +---+---+ | | | +---+---+ + +-------+ +------+---+---+ | dexamethasone (DECADRON) 4 | Given | 01/12/20 | 4 mg | | | | mg/mL injection 4 mg 4 mg, | | 15 12:56 | | | | | Intravenous, EVERY 6 HOURS (4 | | PM PDT | | | | | times per day), First dose on Tue | | | | | | | 01/10/15 at 1800, For 4 doses | | | | | | + +-------+ +------+---+---+ +-------+ +------+---+---+ | Given | 01/12/20 | 4 mg | | | | | 15 5:49 | | | | | | AM PDT | | | | +-------+ +------+---+---+ | Given | 01/12/20 | 4 mg | | | | | 15 1:14 | | | | | | AM PDT | | | | +-------+ +------+---+---+ +---+---+ | | | +---+---+ + +-------+ +------+---+---+ | diazepam (VALIUM) tablet 5 mg | Given | 01/12/20 | 5 mg | | | | 5 mg, Oral, EVERY 6 HOURS PRN, | | 15 1:49 | | | | | Muscle spasms, Starting Tue | | PM PDT | | | | | 01/07/15 at 2143, Post-op/Phase II | | | | | | + +-------+ +------+---+---+ +-------+ +------+---+---+ | Given | 01/12/20 | 5 mg | | | | | 15 6:57 | | | | | | AM PDT | | | | +-------+ +------+---+---+ | Given | 01/11/20 | 5 mg | | | | | 15 6:42 | | | | | | PM PDT | | | | +-------+ +------+---+---+ +---+---+ | | | +---+---+ + +-------+ +-------+---+---+ | diphenhydrAMINE (BENADRYL) | Given | 01/12/20 | 25 mg | | | | tablet 25 mg 25 mg, Oral, EVERY | | 15 6:57 | | | | | 4 HOURS PRN, Itching, Starting | | AM PDT | | | | | 01/07/15 at 2143, Oral route | | | | | | | is preferred., Post-op/Phase II | | | | | | + +-------+ +-------+---+---+ +-------+ +-------+---+---+ | Given | 01/11/20 | 25 mg | | | | | 15 6:17 | | | | | | PM PDT | | | | +-------+ +-------+---+---+ | Given | 01/11/20 | 25 mg | | | | | 15 5:31 | | | | | | AM PDT | | | | +-------+ +-------+---+---+ +---+---+ | | | +---+---+ + +-------+ +--------+---+---+ | docusate sodium (COLACE) | Given | 01/12/20 | 100 mg | | | | capsule 100 mg 100 mg, Oral, 2 | | 15 10:28 | | | | | TIMES DAILY PRN, Constipation, | | AM PDT | | | | | Starting 01/07/15 at 2143, | | | | | | | First line agent for | | | | | | | constipation, Post-op/Phase II | | | | | | + +-------+ +--------+---+---+ +-------+ +--------+---+---+ | Given | 01/11/20 | 100 mg | | | | | 15 10:03 | | | | | | PM PDT | | | | +-------+ +--------+---+---+ | Given | 01/10/20 | 100 mg | | | | | 15 9:26 | | | | | | PM PDT | | | | +-------+ +--------+---+---+ +---+---+ | | | +---+---+ + +-------+ +---------+---+---+ | enalaprilat (VASOTEC) injection | Given | 01/10/20 | 1.25 mg | | | | 1.25 mg 1.25 mg, Intravenous, | | 15 9:04 | | | | | EVERY 6 HOURS PRN, SBP > 160, | | AM PDT | | | | | Starting e 01/07/15 at 2143, | | | | | | | Post-op/Phase II | | | | | | + +-------+ +---------+---+---+ +---+---+ | | | +---+---+ + +-------+ +-------+---+---+ | famotidine (PEPCID) tablet 20 | Given | 01/12/20 | 20 mg | | | | mg 20 mg, Oral, 2 TIMES DAILY, | | 15 8:25 | | | | | First dose on Tue01/07/15 at | | AM PDT | | | | | 2200, Post-op/Phase II | | | | | | + +-------+ +-------+---+---+ +-------+ +-------+---+---+ | Given | 01/11/20 | 20 mg | | | | | 15 10:02 | | | | | | PM PDT | | | | +-------+ +-------+---+---+ | Given | 01/11/20 | 20 mg | | | | | 15 9:52 | | | | | | AM PDT | | | | +-------+ +-------+---+---+ +---+---+ | | | +---+---+ + +-------+ +--------+---+---+ | fentaNYL injection 25-50 mcg | Given | 01/08/20 | 50 mcg | | | | 25-50 mcg, Intravenous, EVERY 5 | | 15 7:22 | | | | | MIN PRN, Pain, Starting Tue | | PM PDT | | | | | 01/07/15 at 1910, Maximum total | | | | | | | dose 250 mcg. PACU IV Narcotic | | | | | | | Priority: Only use fentanyl for | | | | | | | immediate post-op pain (one dose) | | | | | | | or breakthrough pain when any | | | | | | | other IV narcotics ordered have | | | | | | | been ineffective (if ordered). | | | | | | | If both morphine and | | | | | | | hydromorphone are ordered, use | | | | | | | morphine first, and use | | | | | | | hydromporphone if morphine | | | | | | | ineffective., Recovery/Phase I | | | | | | + +-------+ +--------+---+---+ +---+---+ | | | +---+---+ + +-------+ +--------+---+---+ | gabapentin (NEURONTIN) capsule | Given | 01/11/20 | 300 mg | | | | 300 mg 300 mg, Oral, 3 TIMES | | 15 2:18 | | | | | DAILY, First dose on Tue01/07/15 | | PM PDT | | | | | at 2200, Post-op/Phase II | | | | | | + +-------+ +--------+---+---+ +-------+ +--------+---+---+ | Given | 01/11/20 | 300 mg | | | | | 15 9:52 | | | | | | AM PDT | | | | +-------+ +--------+---+---+ | Given | 01/10/20 | 300 mg | | | | | 15 9:16 | | | | | | PM PDT | | | | +-------+ +--------+---+---+ +---+---+ | | | +---+---+ + +-------+ +--------+---+---+ | gabapentin (NEURONTIN) capsule | Given | 01/12/20 | 600 mg | | | | 600 mg 600 mg, Oral, 3 TIMES | | 15 1:49 | | | | | DAILY, First dose (after last | | PM PDT | | | | | modification) on Tue01/10/15 at | | | | | | | 2100, Post-op/Phase II | | | | | | + +-------+ +--------+---+---+ +-------+ +--------+---+---+ | Given | 01/12/20 | 600 mg | | | | | 15 8:25 | | | | | | AM PDT | | | | +-------+ +--------+---+---+ | Given | 01/11/20 | 600 mg | | | | | 15 10:02 | | | | | | PM PDT | | | | +-------+ +--------+---+---+ +---+---+ | | | +---+---+ + +-------+ +---------+---+---+ | HYDROcodone-acetaminophen | Given | 01/12/20 | 2 | | | | (NORCO) 10-325 mg per tablet 1-2 | | 15 2:15 | tablets | | | | tablet 1-2 tablet, Oral, EVERY 4 | | PM PDT | | | | | HOURS PRN, Pain, Starting Tue | | | | | | | 01/07/15 at 2143, If ineffective | | | | | | | or not tolerated use Oxycodone if | | | | | | | ordered., Post-op/Phase II | | | | | | + +-------+ +---------+---+---+ +-------+ +---------+---+---+ | Given | 01/12/20 | 2 | | | | | 15 10:28 | tablets | | | | | AM PDT | | | | +-------+ +---------+---+---+ | Given | 01/12/20 | 2 | | | | | 15 5:49 | tablets | | | | | AM PDT | | | | +-------+ +---------+---+---+ +---+---+ | | | +---+---+ + +-------+ +--------+---+---+ | HYDROmorphone (DILAUDID) | Given | 01/08/20 | 0.5 mg | | | | injection 0.2-0.5 mg 0.2-0.5 mg, | | 15 9:06 | | | | | Intravenous, EVERY 5 MIN PRN, | | PM PDT | | | | | Pain, Starting Tue01/07/15 at | | | | | | | 1910, Maximum total dose 4 mg. | | | | | | | PACU IV Narcotic Priority: Only | | | | | | | use fentanyl for immediate | | | | | | | post-op pain (one dose) or | | | | | | | breakthrough pain when any other | | | | | | | IV narcotics ordered have been | | | | | | | ineffective (if ordered). If | | | | | | | both morphine and hydromorphone | | | | | | | are ordered, use morphine first, | | | | | | | and use hydromporphone if | | | | | | | morphine ineffective., | | | | | | | Recovery/Phase I | | | | | | + +-------+ +--------+---+---+ +-------+ +--------+---+---+ | Given | 01/08/20 | 0.5 mg | | | | | 15 9:01 | | | | | | PM PDT | | | | +-------+ +--------+---+---+ | Given | 01/08/20 | 0.5 mg | | | | | 15 8:23 | | | | | | PM PDT | | | | +-------+ +--------+---+---+ +---+---+ | | | +---+---+ + +-------+ +---------+---+---+ | ipratropium (ATROVENT HFA) 17 | Given | 01/12/20 | 2 puffs | | | | mcg/puff inhaler 2 puff 2 puff, | | 15 12:31 | | | | | Inhalation, 3 TIMES DAILY, First | | PM PDT | | | | | dose (after last modification) on | | | | | | | Joceline 01/09/15 at 0600, Please send | | | | | | | patient's own med to pharmacy | | | | | | | for verification prior to use. | | | | | | | NOT STOCKED BY PHARMACY. Thank | | | | | | | you! Caroline Zepeda, PHARMBrian | | | | | | | 01/08/2015 10:08 Tanner freitas. Use | | | | | | | with spacer., | | | | | | + +-------+ +---------+---+---+ +-------+ +---------+---+---+ | Given | 01/12/20 | 2 puffs | | | | | 15 5:44 | | | | | | AM PDT | | | | +-------+ +---------+---+---+ | Given | 01/11/20 | 2 puffs | | | | | 15 5:36 | | | | | | PM PDT | | | | +-------+ +---------+---+---+ +---+---+ | | | +---+---+ + +-------+ +---------+---+---+ | ipratropium (ATROVENT HFA) 17 | Given | 01/09/20 | 2 puffs | | | | mcg/puff inhaler 2 puff: PATIENT | | 15 5:04 | | | | | OWN MED 2 puff, Inhalation, RT | | PM PDT | | | | | Q8H, First dose on Tue01/08/15 at | | | | | | | 1200, Please send patient's own | | | | | | | med to pharmacy for verification | | | | | | | prior to use. NOT STOCKED BY | | | | | | | PHARMACY. Thank you! Caroline Pena | | | | | | | [place], PHARMD 01/08/2015 10:08 | | | | | | | Tanner freitas. Use with spacer., | | | | | | + +-------+ +---------+---+---+ +-------+ +---------+---+---+ | Given | 01/09/20 | 2 puffs | | | | | 15 11:58 | | | | | | AM PDT | | | | +-------+ +---------+---+---+ +---+---+ | | | +---+---+ + +-------+ +-------+---+---+ | labetalol (TRANDATE) 5 mg/mL | Given | 01/09/20 | 10 mg | | | | injection 10 mg 10 mg, | | 15 4:32 | | | | | Intravenous, EVERY 10 MIN PRN, | | PM PDT | | | | | PRN SBP >160 with P >70, Starting | | | | | | | 01/07/15 at 2143, | | | | | | | Post-op/Phase II | | | | | | + +-------+ +-------+---+---+ +-------+ +-------+---+---+ | Given | 01/09/20 | 10 mg | | | | | 15 2:05 | | | | | | AM PDT | | | | +-------+ +-------+---+---+ +---+---+ | | | +---+---+ + +-------+ +-------+---+---+ | labetalol (TRANDATE) 5 mg/mL | Given | 01/08/20 | 10 mg | | | | injection 10 mg 10 mg, | | 15 7:46 | | | | | Intravenous, EVERY 10 MIN PRN, | | PM PDT | | | | | sbp greater than 170 mmHg, | | | | | | | Starting Tue01/07/15 at 1935, For | | | | | | | 6 doses, Recovery/Phase I | | | | | | + +-------+ +-------+---+---+ +---+---+ | | | +---+---+ + +-------+ +--------+---+---+ | lactulose liquid 30 mL 30 mL, | Given | 01/10/20 | 30 mLs | | | | Oral, DAILY PRN, Constipation, | | 15 6:44 | | | | | Starting Tu01/07/15 at 2143, If | | AM PDT | | | | | docusate, senna, and polyethylene | | | | | | | glycol ineffective x 24 hours or | | | | | | | not ordered, Post-op/Phase II | | | | | | + +-------+ +--------+---+---+ +---+---+ | | | +---+---+ + +-------+ +---------+---+---+ | levalbuterol (XOPENEX) 1.25 | Given | 01/09/20 | 1.25 mg | | | | mg/3 mL nebulizer solution 1.25 | | 15 11:50 | | | | | mg 1.25 mg, Nebulization, RT | | AM PDT | | | | | Q8H, First dose on Tue01/08/15 at | | | | | | | 1200, RT will administer. | | | | | | | Protect from light., | | | | | | + +-------+ +---------+---+---+ +---+---+ | | | +---+---+ + +-------+ +---------+---+---+ | levalbuterol (XOPENEX) 1.25 | Given | 01/12/20 | 1.25 mg | | | | mg/3 mL nebulizer solution 1.25 | | 15 12:32 | | | | | mg 1.25 mg, Nebulization, 3 | | PM PDT | | | | | TIMES DAILY, First dose (after | | | | | | | last modification) on Tue01/08/15 | | | | | | | at 1800, RT will administer. | | | | | | | Protect from light., | | | | | | + +-------+ +---------+---+---+ +-------+ +---------+---+---+ | Given | 01/12/20 | 1.25 mg | | | | | 15 5:44 | | | | | | AM PDT | | | | +-------+ +---------+---+---+ | Given | 01/11/20 | 1.25 mg | | | | | 15 5:36 | | | | | | PM PDT | | | | +-------+ +---------+---+---+ +---+---+ | | | +---+---+ + +-------+ +---------+---+---+ | levothyroxine (SYNTHROID, | Given | 01/12/20 | 150 mcg | | | | LEVOTHROID) tablet 150 mcg 150 | | 15 6:57 | | | | | mcg, Oral, DAILY BEFORE | | AM PDT | | | | | BREAKFAST, First dose on Tue | | | | | | | 01/08/15 at 0730, Give before | | | | | | | breakfast., Post-op/Phase II | | | | | | + +-------+ +---------+---+---+ +-------+ +---------+---+---+ | Given | 01/11/20 | 150 mcg | | | | | 15 6:53 | | | | | | AM PDT | | | | +-------+ +---------+---+---+ | Given | 01/10/20 | 150 mcg | | | | | 15 6:44 | | | | | | AM PDT | | | | +-------+ +---------+---+---+ +---+---+ | | | +---+---+ + +-------+ +--------+---+---+ | magnesium hydroxide (MILK OF | Given | 01/10/20 | 30 mLs | | | | MAGNESIA) 400 mg/5 mL suspension | | 15 9:26 | | | | | 30 mL 30 mL, Oral, NIGHTLY PRN, | | PM PDT | | | | | Constipation, Starting Joceline | | | | | | | 01/09/15 at 0000, If docusate, | | | | | | | senna, and polyethylene glycol | | | | | | | ineffective x 24 hours or not | | | | | | | ordered, Post-op/Phase II | | | | | | + +-------+ +--------+---+---+ +---+---+ | | | +---+---+ + +---------+ +--------+--------+---+ | methocarbamol (ROBAXIN) 750 mg | New Bag | 01/09/20 | 750 mg | 143.3 | | | in sodium chloride 0.9% 100 mL | | 15 9:06 | | mL/hr | | | IVPB 750 mg, Intravenous, | | PM PDT | | | | | Administer over 45 Minutes, EVERY | | | | | | | 8 HOURS (3 times per day), First | | | | | | | dose on Tue01/07/15 at 2200, For | | | | | | | 4 doses, Post-op/Phase II | | | | | | + +---------+ +--------+--------+---+ +---------+ +--------+--------+---+ | New Bag | 01/09/20 | 750 mg | 143.3 | | | | 15 1:44 | | mL/hr | | | | PM PDT | | | | +---------+ +--------+--------+---+ | New Bag | 01/09/20 | 750 mg | 143.3 | | | | 15 6:50 | | mL/hr | | | | AM PDT | | | | +---------+ +--------+--------+---+ +---+---+ | | | +---+---+ + +-------+ +-------+---+---+ | metoclopramide (REGLAN) 5 mg/mL | Given | 01/08/20 | 10 mg | | | | injection 10 mg 10 mg, | | 15 7:57 | | | | | Intravenous, ONCE, Lashay 01/07/15 at | | PM PDT | | | | | 1930, For 1 dose, Recovery/Phase | | | | | | | I | | | | | | + +-------+ +-------+---+---+ +---+---+ | | | +---+---+ + +-------+ +-------+---+---+ | metoprolol tartrate (LOPRESSOR) | Given | 01/12/20 | 25 mg | | | | tablet 25 mg 25 mg, Oral, 2 | | 15 8:25 | | | | | TIMES DAILY, First dose on Tue | | AM PDT | | | | | 01/07/15 at 2200, Post-op/Phase II | | | | | | + +-------+ +-------+---+---+ +-------+ +-------+---+---+ | Given | 01/11/20 | 25 mg | | | | | 15 10:03 | | | | | | PM PDT | | | | +-------+ +-------+---+---+ | Given | 01/11/20 | 25 mg | | | | | 15 9:52 | | | | | | AM PDT | | | | +-------+ +-------+---+---+ +---+---+ | | | +---+---+ + +-------+ +------+---+---+ | midazolam (VERSED) 1 mg/mL | Given | 01/08/20 | 1 mg | | | | injection 0.5-2 mg 0.5-2 mg, | | 15 8:07 | | | | | Intravenous, EVERY 5 MIN PRN, | | PM PDT | | | | | Anxiety, or agitation, Starting | | | | | | | 01/07/15 at 1935, Maximum | | | | | | | total dose 2 mg., Recovery/Phase | | | | | | | I | | | | | | + +-------+ +------+---+---+ +-------+ +------+---+---+ | Given | 01/08/20 | 1 mg | | | | | 15 7:42 | | | | | | PM PDT | | | | +-------+ +------+---+---+ +---+---+ | | | +---+---+ + +-------+ +------+---+---+ | morphine injection 2-8 mg 2-8 | Given | 01/12/20 | 4 mg | | | | mg, Intravenous, EVERY 2 HOURS | | 15 10:28 | | | | | PRN, Pain, Starting Tu01/07/15 | | AM PDT | | | | | at 2143, Slow IV push, not faster | | | | | | | than 2 mg/minute. If ineffective | | | | | | | or not tolerated, use | | | | | | | hydromorphone IV if ordered., | | | | | | | Post-op/Phase II | | | | | | + +-------+ +------+---+---+ +-------+ +------+---+---+ | Given | 01/11/20 | 4 mg | | | | | 15 4:55 | | | | | | PM PDT | | | | +-------+ +------+---+---+ | Given | 01/11/20 | 4 mg | | | | | 15 12:47 | | | | | | PM PDT | | | | +-------+ +------+---+---+ +---+---+ | | | +---+---+ + +-------+ +------+---+---+ | ondansetron (ZOFRAN ODT) | Given | 01/09/20 | 4 mg | | | | disintegrating tablet 4 mg 4 mg, | | 15 6:18 | | | | | Oral, EVERY 6 HOURS PRN, Nausea, | | PM PDT | | | | | Vomiting, Starting 01/07/15 | | | | | | | at 2143, First line agent, | | | | | | | Post-op/Phase II | | | | | | + +-------+ +------+---+---+ +---+---+ | | | +---+---+ + +-------+ +------+---+---+ | ondansetron (ZOFRAN) injection | Given | 01/09/20 | 4 mg | | | | 4 mg 4 mg, Intravenous, EVERY 6 | | 15 2:11 | | | | | HOURS PRN, Nausea, Vomiting, | | AM PDT | | | | | Starting 01/07/15 at 2143, | | | | | | | First line agent Use PO option | | | | | | | unless NPO status or unable to | | | | | | | tolerate., Post-op/Phase II | | | | | | + +-------+ +------+---+---+ +---+---+ | | | +---+---+ + +-------+ +-------+---+---+ | pantoprazole (PROTONIX) DR | Given | 01/12/20 | 40 mg | | | | tablet 40 mg 40 mg, Oral, 2 | | 15 6:57 | | | | | TIMES DAILY BEFORE MEALS, First | | AM PDT | | | | | dose on Tue01/08/15 at 0730, | | | | | | | Therapeutic Interchange for | | | | | | | omeprazole. Do not cut or | | | | | | | crush., | | | | | | + +-------+ +-------+---+---+ +-------+ +-------+---+---+ | Given | 01/11/20 | 40 mg | | | | | 15 5:32 | | | | | | PM PDT | | | | +-------+ +-------+---+---+ | Given | 01/11/20 | 40 mg | | | | | 15 6:53 | | | | | | AM PDT | | | | +-------+ +-------+---+---+ +---+---+ | | | +---+---+ + +-------+ +---------+---+---+ | phenol (CHLORASEPTIC) spray 1-2 | Given | 01/09/20 | 1 spray | | | | spray 1-2 spray, Mouth/Throat, | | 15 10:21 | | | | | EVERY 3 HOURS PRN, Sore Throat, | | AM PDT | | | | | Starting Tue01/07/15 at 2143, To | | | | | | | back of throat, Post-op/Phase II | | | | | | + +-------+ +---------+---+---+ +---+---+ | | | +---+---+ + +-------+ +---------+---+---+ | phenol-menthol (CEPASTAT) | Given | 01/10/20 | 1 | | | | lozenge 1 lozenge 1 lozenge, | | 15 9:11 | lozenge | | | | Buccal, EVERY 2 HOURS PRN, Pain, | | AM PDT | | | | | Starting 01/07/15 at 2143, | | | | | | | Post-op/Phase II | | | | | | + +-------+ +---------+---+---+ +-------+ +---------+---+---+ | Given | 01/09/20 | 1 | | | | | 15 11:49 | lozenge | | | | | PM PDT | | | | +-------+ +---------+---+---+ | Given | 01/09/20 | 1 | | | | | 15 3:46 | lozenge | | | | | PM PDT | | | | +-------+ +---------+---+---+ +---+---+ | | | +---+---+ + +-------+ +------+---+---+ | polyethylene glycol (MIRALAX) | Given | 01/10/20 | 17 g | | | | powder 17 g 17 g, Oral, DAILY | | 15 5:46 | | | | | PRN, Constipation, Starting Tue | | PM PDT | | | | | 01/07/15 at 2143, If docusate and | | | | | | | senna ineffective or not ordered, | | | | | | | Post-op/Phase II | | | | | | + +-------+ +------+---+---+ +---+---+ | | | +---+---+ + +-------+ +--------+---+---+ | rOPINIRole (REQUIP) tablet 0.5 | Given | 01/12/20 | 0.5 mg | | | | mg 0.5 mg, Oral, 3 TIMES DAILY, | | 15 1:49 | | | | | First dose on Tue01/07/15 at | | PM PDT | | | | | 2200, Post-op/Phase II | | | | | | + +-------+ +--------+---+---+ +-------+ +--------+---+---+ | Given | 01/12/20 | 0.5 mg | | | | | 15 8:24 | | | | | | AM PDT | | | | +-------+ +--------+---+---+ | Given | 01/11/20 | 0.5 mg | | | | | 15 10:02 | | | | | | PM PDT | | | | +-------+ +--------+---+---+ +---+---+ | | | +---+---+ + +-------+ +--------+---+---+ | senna (SENOKOT) tablet 8.6 mg | Given | 01/12/20 | 8.6 mg | | | | 8.6 mg, Oral, 2 TIMES DAILY PRN, | | 15 10:28 | | | | | Constipation, Starting Tue | | AM PDT | | | | | 01/07/15 at 2143, If docusate | | | | | | | ineffective or not ordered, | | | | | | | Post-op/Phase II | | | | | | + +-------+ +--------+---+---+ +-------+ +--------+---+---+ | Given | 01/10/20 | 8.6 mg | | | | | 15 9:27 | | | | | | PM PDT | | | | +-------+ +--------+---+---+ | Given | 01/10/20 | 8.6 mg | | | | | 15 9:07 | | | | | | AM [...] +--------+-------+ + +---+---+ | | | +---+---+ + +---------+ +---+-------+---+ | sodium chloride 0.9% (NS) | New Bag | 01/08/20 | | 100 | | | infusion at 100 mL/hr, | | 15 10:39 | | mL/hr | | | Intravenous, CONTINUOUS, Starting | | PM PDT | | | | | 01/07/15 at 2200, | | | | | | | Post-op/Phase II | | | | | | + +---------+ +---+-------+---+ +---+---+ | | | +---+---+ documented in this encounter
--- OUTSIDE RECORDS SUMMARY | ~2020-03-18 | XMS | Encounter Summary ---
Demographics + + + | Address | [address] | | | [place] [address] | + + + | Home Phone [...] Team Providers + +------+ + | Care Private Pilot Name | Role | Phone | + [...] Description | +--------+---------+ + + + | 04/08/ | Office | [facility] | Latonia Olson, | [facility] elevation | | 2017 | Visit | [facility] | MD [address] | myocardial | | | | REHABILITATION [address] | [place] | infarction involving | | | | [address] [place] | [address] | right coronary | | | | [place] [address] | | artery (HCC) | | | | [phone] | | | +--------+---------+ + + + [...] encounter Progress Notes Pricilla Zaldivar RN - 04/08/2017 10:45 AM PDT [facility] [address] [facility] [address] Cardiac Rehab Discharge Date: 04/08/2017 Patient Information Patient Name: Jose Raul Palafox Date of : 1960 Age: 56 y.o. Referring Provider: Latonia Olson MD Encounter Diagnoses Code Name Primary? I21.11 ST elevation myocardial infarction involving right coronary artery (HCC) Mr. Palafox is a 55 y.o. male with a history of hyperlipidemia, severe COPD, recent smoker who experienced chest pain at the [facility] and was found to have STEMI on 11/03/16. His RCA was s uccessfully stented by Dr. Olson. On 01/03/17 he was readmitted with unstable angina and r eceived another stent. Since that time, he had an episode of chest pain and it was reported to dump worker and Dr. Gomez. Cardiac Rehab Phase II Reema tment Plan [...] RPE: 4 /10 60 Day exercise assessment: Date:03/09/17 Mode: Biostep Duration: 30 min X 4.68 METs RPE: 4/ 10 Discharge exercise assessment: Date: 04/08/17 Mode: Biostep Duration: 30 min X 4.94 METs RPE :4-5 /10 Sessio n Prescription Modes: Recumbent elliptical, [...] thoracic pain, which limits his walking Date: 03/09/17 Notes: Continues to have thoracic pain, which limits his walking Date: 04/08/17 Nutr ition and Weight Assessment: Height: 6' 2" Admission Weight: 219# 30 Day We ight: 218# BMI: 60 Day Weight: D ischarge Weight: 215# Weight Goal: Lose 1-2# per week Waist [...] Healthy Dietary Education Date: 01/05/17 -Referral to Rags Laborer: Date: -DVD: Healthy Eating For Life Date: [...] Exercise BP: 124/72 60 Day Resting BP: 104/71 60 Day Exercise BP: 128/70 Discharge BP: 112/78 Discharge Exercise BP: 148/78 Inte rventions and Education Points listed below- [...] education, he agrees to take it again. Date: 04/08/17 Notes: Continues to be compliant with medication. BP controlled. Dyslipidemia History of Dyslipidemia: Yes Treatment: On medication Most recent lipid panel: [id number] TRIG 197 HDL 34 LDL 106 Interven [...] saturated fats, exercising 3 X week. Chioma joan Mellitus History of diabetes: No Treatment: Last hemoglobin A1C: Value: Date: Interventions -Evaluate blood sugar pre- and post- exercise until stable. Date: Range: -Referral to In Flight Crew Member Date: Education Points listed below- Date Completed: [...] Day PHQ-9: 90 Day PHQ-9 Discharge PHQ-9: 2 Support systems: Notes: tired and feels down [...] Compliant in attendance. Gaining endurance. Quit smoking. 04/08/17 He will continue to exercise for 45 min to an hour daily. Continues to abstain from nicotine. Electronically signed by: Pricilla Zaldivar RN, 04/08/2017 12:45 Patient Name: Jose Raul Palafox/: 1960/ signed by Lulu Terrazas MD at 04/12/2017 12:56 PM PDTdocumented in this encounter Plan of Treatment Not on filedocumented as of this encounter Visit Diagnoses + + | Diagnosis | + + | ST elevation myocardial infarction involving right coronary artery (HCC) Acute | | myocardial infarction of inferoposterior wall, initial episode of care | + + documented in this encounter
--- OUTSIDE RECORDS SUMMARY | ~2020-03-18 | XMS | Encounter Summary ---
Demographics + + + | Address | [address] | | | [place] [address] | + + + | Home Phone | | + + + | Preferred Language | Unknown | + + + | Marital Status | | + + + | Cheondoism Affiliation | Unknown | + + + | Race | White | + + + | Ethnic Group | Not or | + + + Author + + + | Author | [facility] | | | and [place] | + + + | Organization | [facility] | | [...] Team Providers + +------+ + | Care Plate Hanger Name | Role | Phone | + +------+ + | Gary Gomez MD | PCP | | + +------+ + Encounter Details +--------+ + + + + | Date | Type | Department | Care Team | Description | +--------+ + + + + | 01/11/ | Hospital | [facility] | Krystal Angeles PT | | | 2014 | Encounter | [facility] ACUTE | | | | | | PHYSICAL THERAPY | | | | | | [address] | | | | | | [place] [address] | | | | | | [phone] | | | +--------+ + + + [...]
--- OUTSIDE RECORDS SUMMARY | ~2020-03-18 | XMS | Encounter Summary ---
Demographics + + + | Address | [address] | | | [place] [address] | + + + | Home Phone [...] Team Providers + +------+ + | Care Security Installation Technician Name | Role | Phone | [...] Description | +--------+---------+ + + + | 01/21/ | Office | [facility] | Latonia Olson, | [facility] elevation | | 2017 | Visit | [facility] | MD [address] | myocardial | | | | REHABILITATION [address] | [place] | infarction involving | | | | [address] [place] | [address] | right coronary | | | | [place] [address] | | artery (HCC) | | | | [phone] | | | +--------+---------+ + + + [...] encounter Progress Notes Pricilla Zaldivar RN - 01/21/2017 10:00 AM PDT [facility]AC RE[facility]IL[facility]ATION [address] [facility] [address] Cardiac Rehab Date: 01/21/2017 Patient Information Patient Name: Jose Raul Palafox [...] min Electronically signed by: Pricilla Zaldivar RN, 01/21/2017 13:25 Patient Name: Jose Raul Palafox/: 1960/ signed by Pricilla Zaldivar RN at 01/21/2017 1:27 PM PDTdocumented in this encounter Plan of [...]
--- OUTSIDE RECORDS SUMMARY | ~2020-03-18 | XMS | Encounter Summary ---
Demographics + + + | Address | [address] | | | [place] [address] | + + + | Home Phone [...] Team Providers + +------+ + | Care Loss Prevention Supervisor Name | Role | Phone | [...] | Physical | Diagnoses | Shellie | [place], | | | Services | Medicine and | Thoracic | Cecil Frost, | Hussein Amaral MD | | | Required | Rehabilitatio | radiculopath | PA-C [address] | | | | n | y | [address] | [address] [place] | | | | | Procedures | [address] | [place], [place] | | | | | 06/28>PEND | [place], | [address] Phone: | | | | | [place] | [place] [address] | [phone] | | | | | | Phone: | Fax: | | | | | | [phone] | [phone] | | | | | | Fax: | | | | | | | [phone] | | +--------+ + + + + + Evaluate & Treat (Routine) +--------+ + + + + + | Status | Reason | Specialty | Diagnoses / | Referred By | Referred To | | | | | Procedures | Contact | Contact | +--------+ + + + + + | Closed | Specialty | Physical | Diagnoses | Shellie, | [place], | | | Services | Medicine and | Numbness | Cecil Frost, | MD Etienne | | | Required | Rehabilitatio | and tingling | PA-C [address] | [address] | | | | n | in both | [address] | [address] | | | | | hands | [address] | [place], [place] | | | | | Paroxysmal | [place], | [address] Phone: | | | | | dyskinesia | [place] [address] | [phone] | | | | | Procedures | Phone: | Fax: | | | | | [place] MOTOR | [phone] | [phone] | | | | | &/SENS 3-4 | Fax: | | | | | | NRV CNDJ | [phone] | | | | | | PRECONF | | | | | | | ELTRODE LIMB | | | | | | | [place] MOTOR | | | | | | | &/SENS 5-6 | | | | | | | NRV CNDJ | | | | | | | PRECONF | | | | | | | [place] | | | | | | | [place] EMG, | | | | | | | NEEDLE, TWO | | | | | | | LIMBS [place] | | | | | | | NEEDLE EMG | | | | | | | EA EXTREMITY | | | | | | | W/PARASPINL | | | | | | | AREA | | | | | | | LIMITED [place] | | | | | | | MOTOR &/SENS | | | | | | | 13/> NRV | | | | | | | CNDJ PRECONF | | | | | | | ELTRODE | | | | | | | [place]B [place] | | | | | | | NEEDLE EMG | | | | | | | EA EXTREMTY | | | | | | | W/PARASPINL | | | | | | | AREA | | | | | | | COMPLETE | | | | | | | 12/05>PEND | | | | | | | [place] | | | +--------+ + + + + + Reason for Visit + + + | Reason | Comments | + + + | Neck Pain | | + + + Follow Up (Routine) +--------+--------+ + + + + | Status | Reason | Specialty | Diagnoses / | Referred By | Referred To | | | | | Procedures | Contact | Contact | +--------+--------+ + + + + | Closed | | Neurosurgery | Diagnoses | Patricia | Jarred, | | | | | Spondylosis | Gary | Aleksander Jewell DO | | | | | without | MD Garry | [address] | | | | | myelopathy | [address] | | | | | or | [place]JAY[place] | [place] | | | | | radiculopath | [address] | [address] Phone: | | | | | y, cervical | [place] | [phone] | | | | | region | [address] | Fax: | | | | | Arthrodesis | Phone: | [phone] | | | | | status | [phone] | | | | | | Follow up | Fax: | | | | | | appointment | [phone] | | | | | | Procedures [...] Description | +--------+---------+ + + + | 06/02/ | Office | [facility] | Cecil Hensley, | Numbness and | | 2015 | Visit | NEUROSURGERY [address] | PA-C [address] | tingling in both | | | | [address] | [address] [place] | hands (Primary Dx); | | | | [place], [place] | [place] [address] | Paroxysmal | | | | [id number] | [phone] | dyskinesia; Thoracic | | | | [phone] | | radiculopathy | +--------+---------+ + + + Social History [...] + + + | Blood Pressure | 116/88 | 06/02/2016 3:14 PM | | | | | PST | | + + + + + | Pulse | 90 | 06/02/2016 3:14 PM | | | | | PST | | + + + + + | Temperature | - | - | | + + + + + | Respiratory Rate | 16 | 06/02/2016 3:14 PM | | | | | PST | | + + + + + | Oxygen Saturation | - | - | | + + + + + | Inhaled Oxygen | - | - | | | Concentration | | | | + + + + + | Weight | 104.3 kg (230 lb) | 06/02/2016 3:14 PM | | | | | PST | | + + + + + | Height | 188 cm (6' 2") | 06/02/2016 3:14 PM | | | | | PST | | + + + + + | Body Mass Index | 29.53 | 06/02/2016 3:14 PM | | | | | PST [...] Instructions Patient Instructions Cecil Hensley PA - 06/02/2016 4:07 PM PSTI have referred you to see Dr. Babin for nerve conduction studies for your right arm symptoms. For the radiating chest symptoms I have sent you to see [place] physician's registered sales assistant who also might have you s arnaldo Padron for injections. documented in this encounter Progress Notes Cecil Hensley PA - 06/02/2016 4:20 PM PSTFormatting of this note might be different f rom the original. YUINER Jacinto [address] [facility] [place] [address] FAX: NEUROSURGERY FOLLOW-UP CHIEF COMPLAINT: Chief Complaint Patient presents with Neck Pain HISTORY OF PRESENT ILLNESS: Patient was last seen in our office approximately 5-6 months a go. Since that time he has completed physical therapy. He did feel that physical therapy h elped with his range of motion but has not addressed some of the other symptoms that he had complained of at his last visit. At today's visit he still complains of tingling and numbne ss in his right hand which now seems to affect all 5 fingers. The symptoms in his right ray d are fairly constant. He has mild symptoms in his left hand as well. Patient has not drop ped any items and denies difficulty with fine motor tasks. However, in the last 6 weeks he has noticed a new symptom of his wrist jerking suddenly as well as his shoulder wanting to " roll forward and contract suddenly." He also still complains of the thoracic radicular pain mentioned at his last visit. This seems to be exacerbated by lying on either his right or his left side at night as well as by extending his neck into extension. This does not smith e the symptoms down his arms it only changes sharp shooting pain in his upper thoracic regio n that shoots around to his lower chest region. The patient is a 55 y.o. male that had a anterior C3-C7 cervical fusion along with a C3-T2 posterior cervical fusion by me for neck and arm pain around 1 year ago. He returns and drea arevalo is doing fairly well. The patient complains of tingling and numbness in his right ray d along with weakness. He also complains of an odd sharp shooting pain that comes from his upper thoracic spine and radiates around to his sternum. Patient states that he took a fall in the first couple of weeks after his original surgery. This resulted in a sensation wher e one of his ribs had "popped out". Patient remembers havinthe same pain back then. From t hen until now he had 1 brief episode where this occurred. Most recently, about 4 weeks ago, he experienced this again. It lasted fairly intensely for about 3 weeks. In the last week he has not had any such symptoms. It was the presentation of these symptoms that brought nam sousa into our office. Patient states that overall, he is much better than he was prior to surgery. It was his ri ght arm that was bothering him prior to surgery. Patient has less pain in his arm now and h apple had prior to surgery but still notes [...] (HCC) Thyroid disease History of tobacco use PAST [...] Diabetes Mother INTERIM PHYSICAL EXAMINATION: Blood pressure 116/88, pulse 90, resp. rate 16, height 1.88 m (6' 2"), weight 104.327 kg (2 30 lb). Body mass index is 29.52 kg/(m^2). GENERAL: Jose Raul Palafox is in [...] simple and complex commands MOTOR EXAM: patient's oil expeller on the right is rated as a [...] x-ray which was also reviewed for comparison. Previous superior aspect of C3 appears to have completel y fused at this point. This shows an increased arthrodesis from his previous surgery. Ot herwise, the fusion looks great and hardware is currently holding in place nicely ASSESSMENT: Encounter Diagnoses Name Primary? Numbness and tingling in both hands Yes Paroxysmal dyskinesia Thoracic radiculopathy Past Medical History Diagnosis Date Hepatitis C COPD (chronic obstructive pulmonary disease) (HCC) Restless leg syndrome Asthma Thyroid disease Hyperlipidemia Diverticulitis Hernia, hiatal Anxiety Emphysema of lung (HCC) Hypertension Migraine Neuropathy (HCC) Thyroid disease History of tobacco use PLAN: Overall, the patient is overall doing as expected. Patient definitely has improvements in his overall condition compared to prior before surgery. It is not completely surprising alex t some of his symptoms remain. given the symptoms in his right arm especially considering the paroxysmal dyskinesia in his right wrist and right shoulder I have recommended that he g et nerve conduction studies with Dr. Thomas. For the thoracic radicular symptoms I have refe rred him to Ste[facility]. Through her evaluation she may have Dr. Padron perform injections t o help him symptomatically as well as diagnostically. Surgically, it is highly unlikely th at there is more to do on his [...] axilla return ELECTRONICALLY SIGNED BY: YUNIER Jacinto, 06/02/2016 16:21 documented in this encounter Plan of Treatment + +---------+--------+ + + | Name | Type | Priori | Associated Diagnoses | Order Schedule | | | | ty | | | + +---------+--------+ + + | XR Thoracic Spine 2 | Imaging | Routin | Thoracic | Expected: | | Vw | | e | radiculopathy | 06/02/2016, Expires: | | | | | | 06/02/2017 | + +---------+--------+ + + + + +--------+ + + | Name | Type | Priori | Associated Diagnoses | Order Schedule | | | | ty | | | + + +--------+ + + | Ambulatory referral | Outpatient | Routin | Numbness And | Ordered: 06/02/2016 | | to Physical Medicine | Referral | e | Tingling In Both | | | Rehab | | | Hands Paroxysmal | | | | | | dyskinesia | | + + +--------+ + + | Ambulatory referral | Outpatient | Routin | Thoracic | Ordered: 06/02/2016 | | to Physical Medicine | Referral | e | radiculopathy | | | Rehab | | | | | + + +--------+ + + documented as of this encounter Visit Diagnoses + + | Diagnosis | + + | Numbness and tingling in both hands - Primary | + + | Paroxysmal dyskinesia Lack of coordination | + + | Thoracic radiculopathy Thoracic or lumbosacral neuritis or radiculitis, unspecified | + + documented in this encounter
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
--- OUTSIDE RECORDS SUMMARY | ~2020-03-18 | XMS | Encounter Summary ---
Demographics + + + | Address | [address] | | | [place] [address] | + + + | Home Phone [...] + + + | Author | [facility] | | | and [place] | + + + | Organization | [facility] | | | [...] Team Providers + +------+ + | Care Executive Legal Secretary Name | Role | Phone | + [...] | | | | | | | [place] | | | | | | | [...] Description | +--------+---------+ + + + | 01/07/ | Surgery | [facility] | Aleksander Stern, | C3-4, C4-5, C5-6, | | 2014 | | MED CTR OR INTRA OP | DO [address] | C6-7, Anterior | | | | [address] | [place] [address] | Cervical Discectomy | | | | [place] | [id number] | w/ Fusion and | | | | [phone] | | Plating, Posterior | | | | [phone] | | Fusion at C3-4, | | | | | | C4-5, C5-6, C6-7, | | | | | | C7-T1, and T1-2 | +--------+---------+ + + + Social History + +-------+ +--------+------+ | Tobacco Use | Types | Packs/Day | Years | Date | | | | | Used | | + +-------+ +--------+------+ | Former Smoker | | 0.3 | 10 | | + +-------+ +--------+------+ + +---+---+ + | Smokeless Tobacco: | | | Quit: | | Former User | | | 1015/20 | | | | | 14 | [...] + + + | Blood Pressure | 132/80 | 01/07/2015 8:18 AM | | | | | PDT | | + + + + + | Pulse | 73 | 01/07/2015 8:18 AM | | | | | PDT | | + + + + + | Temperature | 36.5 C (97.7 F) | 01/07/2015 8:18 AM | | | | | PDT | | + + + + + | Respiratory Rate | 16 | 01/07/2015 8:18 AM | | | | | PDT | | + + + + + | Oxygen Saturation | 95% | 01/07/2015 8:18 AM | | | [...] following attachments cannot be sent through Care Everywhere.LAMINECTOMY, TORSTEN SANDOVAL INSTRUCTIONS FOR (HEBREW)documented in this encounter Medications at Time of [...] + documented as of this encounter Progress Aleksander Ramsey DO - 01/11/2015 9:28 AM PDTFormatting of [...] control -DVT prophylaxis -DC plan: home today Carissa Ro O T - 01/10/2015 12:04 PM PDTOccupational [...] improving. C/o some dizziness w/ ambulation. Raj ged increasing his time spent sitting upright. Pt [...] L/Min in comment) 90 1 lpm NC [id number] signed by Dima May RRT at 01/09/2015 11:55 AM Emmy Iglesias PA - 01/09/2015 7:31 AM PDTFormatting of this note might be different from the or iginal. [facility] NEUROSURGERY PROGRESS NOTE Pt. Name/Age/: [...] Electronically signed by: Emmy Remy, 01/09/2015 7:31 [facility] Emmy Iglesias PA - 01/08/2015 4:10 PM PDTSubjective:Asked by RN to see patient. Throughout the day patimichelle harrell has noticed an increase in swelling in [...] orders. The above note was dictated using [email or web address] voice recognition software. It may have not been p roofread in entirety. Minor errors in grammar may occur. Emmy Iglesias PA - 01/08/2015 7:42 AM PDT [facility] NEUROSURGERY PROGRESS NOTE Pt. Name/Age/: [...] - 111 16 94 % - - 01/07/1518 132/80 mmHg 36.5 C (97.7 F) Temporal [...] Electronically signed by: Emmy Remy, 01/08/2015 7:50 [facility] uEmmy carty PA - 01/08/2015 7:31 AM PDT [facility] NEUROSURGERY PROGRESS NOTE Pt. Name/Age/: [...] - 111 16 94 % - - 01/07/15817 132/80 mmHg 36.5 C (97.7 F) Temporal [...] Electronically signed by: Emmy Remy, 01/08/2015 7:31 [facility] documented in this encounter H&P Notes Aleksander Stern DO - 01/07/2015 11:23 AM [facility] AND [...] Electronically signed by: Aleksander Stern, 01/07/2015 11:23 [facility] Aleksander Gallegos DO - 01/07/2015 11:22 AM PDT Aleksander Stern DO [address] [facility] [place] [address] FAX: NEUROSURGERY HISTORY AND PHYSICAL EXAMINATION CHIEF [...] no apparent deficits with short or terminal superintendent memory. CRANIAL NERVES: II: Acuity is intact. [...] Intrinsics 4 5 Ulnar Intrinsics 4 5 Digital Strategy Specialist Strength 4 5 Hip Flexion 4 5 [...] Miscellaneous Notes Plan of Care - Krystal Bellamy, PT - 01/11/2015 6:41 PM PDTPhysical Therapy [...] FWW, gait training Electronically signed by: KRYSTAL BELLAMY PT, 01/11/2015 18:41 lan of Ifeoma Crook RN - 01/11/2015 4:08 PM PDTProblem: Fall/Trauma/Injury Risk (Adult, Obstetrics) Goal: Identify Signs And Symptoms And Related Risk Factors Signs and symptoms and related risk factors are identified upon initiation of Human Respons e Clinical Practice Guideline (CPG) Outcome: Progressing Pt has good steady gait when ambulating, uses FWW with CGA. Calls out appropriately for nee ds. lan of Ifeoma Crook RN - 01/11/2015 4:07 PM PDTProblem: General Plan of Care (Adult, Obstetrics) Goal: Care Plan Shift Summary & Review . Outcome: Progressing Discharge instructions and Rx given to pt and spouse, aqua guards and extra bandaids given. Questions denied, pt assisted out by staff via wheelchair, discharged with O2 in place. lan of Antonina Lua, Speech Pathologist - 01/11/2015 1:02 PM PDTProblem: [...] eat soft breads, using liquid wash wi no overt difficulty. CALL CENTER RN observed breads, mixed textures, meats, and thin liquids by darby blanchard. Pt had mild difficulty swallowing the meats even after he tried to chew it. He needed a l iquid wash. Pt stopped eating these textures. he was able to eat a biscuit but needed a liqu id wash with it. CALL CENTER RN provided education to he and his family about continuing to modify his diet at home for perhaps up to 2 weeks. CALL CENTER RN rec continuing his current [facility] soft chopped t and thin liquids, with ground meats. Pt is compliant with this as well as the family who h e is staying with for 1 week post DC. Further CALL CENTER RN not needed at this time. Speech language pathology will follow Jose Raul Palafox 3 times/wk until discharge from th erapy or discharged from the hospital. Speech Language Pathology Discharge Recommendations are: Recommended discharge disposition: home with family/caregiver Post discharge speech language pathology recommendation: no further Speech Therapy Planned Interventions: diet texture modification, patient/caregiver education, creative project manager y strategies, home program instruction CALL CENTER RN Diagnosis: MIld pharyngeal dysphaagia At bedside, signs [...] Electronically signed by: Antonina Bean SPEECH PATHO, 01/11/2015 13:02 Start Time: 1145 Stop time: 1210 Duration: 25 minutes 1:0 2 PM PDTPlan of Care - Gissell Tolbert MSW - 01/11/2015 12:19 PM PDTProblem: General Plan of Care (Adult, Obstetrics) Goal: Care Plan Shift Summary & Review . Outcome: Progressing Patient is needing home O2. Called [facility] as [facility]. Faxed O2 orde r, face sheet, and RT note to [facility] [phone]. Spoke with Justice, health education coordinator, at [facility] who st ated that he would go to the office to get the fax and bring portable O2 to the hospital rm [phone]. Let him know that patient is from [place] but will be staying with his mother in [facility] at d/c. Also, he stated that I will need to send paperwork to [facility]. Unknown of [facility] fax number so will send to [facility] [phone] with attention to RT. Fax came back "O K". Electronically signed by: JESSICA Boyd 01/11/2015 12:19 Spoke with Justice who stated that their fax machine is not currently working at this coleen e. He states that he will picking machine operator helper the needed documentation when he brings his portable O2 to patient's room and will also deliver concentrator to his mothers home in [place] at d/c. Relayed this information to patient is he is agreeable. Electronically signed by: JESSICA Boyd 01/11/2015 12:52 Justice showed up with portable O2 and was given face sheet, O2 order, and RT note. He st ates that the [facility] will review Tuesday to determine payment for [...] cc seros ang output q6h. lan of Lupe - Salud Dorsey RRT - 01/11/2015 5:51 AM PDTProblem: General Plan of Care (Adult, Obstetr ics) Goal: Care Plan Shift Summary & Review . Outcome: Progressing Patient's SpO2: 95 % on 1liters/minute nasal cannula. Breathing treatments given as schedu led. Breath sounds are clear anterior, expiratory wheezes posteriorly. Does PEP device wel lSaritha lan of [facility] Subha Ramirez ch, RN - 01/10/2015 8:23 PM PDTProblem: General Plan of Care (Adult, Obstetrics) Goal: Care Plan Shift Summary & Review . Outcome: Progressing Pt c/o increased pain in right arm today. Tingling down arm from elbow. Also more pain in n lori and shoulders. Trying to wean off morphine but still needing it for breakthrough pain. T aking [facility] and Valium routinely. Wearing his collar with [...] better and drain output decreased. lan of Braxton Shi RRT - 01/10/2015 6:09 PM PDTProblem: General [...] BRAXTON YOUSIF RRT 01/10/2015 18:09 lan of Krystal Garces PT - 01/10/2015 12:06 PM PDTPhysical Therapy [...] FWW, gait training Electronically signed by: KRYSTAL BELLAMY, PT, 01/10/2015 12:13 lan of Care - Esther Pereira RN - 01/10/2015 5:39 AM PDTProblem: General [...] given today. Previously had lactulose. Amadou ing [facility] routinely every 4 hours and has been requesting Morphine about every 4 hours also. ANDREA drain dc'd anterior incision bandaid is CDI, posterior bandaids also CDI. Hemovac drain with 100cc bloody drainage. Pt is hoping to go home tomorrow. lan of Care - Caity Ye COTA - 01/09/2015 5:02 PM PDTProblem: General Plan [...] by: DWAYNE Harris, 01/09/2015 16:55 lan of Lupe - Krystal German, PT - 01/09/2015 12:19 [...] dizziness, high BP Electronically signed by: KRYSTAL BELLAMY, PT, 01/09/2015 12:19 lan of Care - Shazia Trevino, Speech Pathologist - 01/09/2015 12:08 PM PDTProblem: General Plan of Care (A dult, Obstetrics) Goal: Care Plan Shift Summary & Review . Speech Therapy Swallow Plan of Care Treatment Note Summary: Pt was seen at lunchtime at bedside in upright position for treatment. Pt kept brace on while eating. The texture on the patient's tray was a soft, chopped texture, per pt request. Pt stated that soft, chopped texture was the most comfortable texture for him. CALL CENTER RN will change diet to soft, chopped texture. Pt swallowed soft, chopped texture and thin liqu ids with no overt s/s of airway compromise. Speech language pathology will follow Jose Raul Palafox 3 times/wk until discharge from [facility] or discharged from the hospital. Speech Language Pathology Discharge Recommendations are: Recommended discharge disposition: home with family/caregiver Post discharge speech language pathology recommendation: no further Speech Therapy Planned Interventions: diet texture modification, patient/caregiver education, creative project manager y strategies, home program instruction CALL CENTER RN Diagnosis: MIld pharyngeal dysphaagia At bedside, signs [...] two sessions. lan of Care - Dalila Rivera RN - 01/09/2015 10:13 AM PDTProblem: General Plan of Car e (Adult, Obstetrics) Goal: Care Plan Shift Summary & Review . Outcome: Progressing I visited today with Jose Raul and his Spouse about discharge planning. Jose Raul lives with his S pouse in [place], [place], in a one level house with three steps and a hand rail leading up to the front door. They will be staying with his [id number] in [place], [place] during the fi rst part of his recovery. He owns a walker, walk in shower, shower bench and double canes. He uses [facility] and his [facility] P[facility] is Dr. [...] no difference in pain and swallowing ability. Assembly Repairer and plantar/dorsi strong. MS RUE 4/5 all other extremitie s 5/5. ANDREA and Hemovac draining serosanguineous fluid with decreased output. at bedside. lan of Care - Salud Osorio RRT - 01/09/2015 6:17 AM PDTProblem: General Plan of Care (Adult, Obstetrics) Goal: Care Plan Shift Summary & Review . Outcome: Progressing Patient's SpO2: 95 % on 1liters/minute nasal cannula. Breathing treatments given as schedu led. Breath sounds are clear. One PRN treatment given through night for shortness of breat h. lan of Care - Antonina Barreto, Speech Pathologist - 01/08/2015 5:40 PM PDTProblem: General Plan o f Care (Adult, Obstetrics) Goal: Care Plan Shift Summary & Review . Speech Therapy Swallow Plan of Care Initial Evaluation, Treatment Note Summary: Initial swallow eval completed today per doctor's order. Pt seen upright in bed with present. B brace on. CALL CENTER RN positioned Pt upright to 90 degrees and removed brace fo r lunch session. Pt began to have extreme pain in posterior neck during oral motor exam and needed the brace applied and to be laid down. RN gave morphine. CALL CENTER RN left and visited Pt late r when he was ready to eat. With brace on, Pt needed assistance with self feeding as using h is arms hurt too much. kitchen designer fed Pt bites of his regular texture lunch. THough nearly edentate , Pt was able to chew and swallow beef, green beans and roll. Pt reported that the raw radha ts where difficulty to swallow and coughed one back up. CALL CENTER RN educated on diet texture modific ation, and rec dysphagia advanced and thin liquids. and Pt are compliant with this. Pt needs RED TRAY as he has a lot of pain with arm movment. CALL CENTER RN will check on Pt at next schedu led visit to monitor for diet tolerance and provide take home information. Speech language pathology will follow Jose Raul Palafox 3 times/wk until discharge from [facility] or discharged from the hospital. Speech Language Pathology Discharge Recommendations are: Recommended discharge disposition: home with family/caregiver Post discharge speech language pathology recommendation: no further Speech Therapy Planned Interventions: diet texture modification, patient/caregiver education, creative project manager y strategies, home program instruction CALL CENTER RN Diagnosis: MIld pharyngeal dysphaagia At bedside, signs [...] PM PDTPlan of Care - Dima May, BEER STILL RUNNER COMPOUNDER - 01/08/2015 5:19 PM PDT Problem: General [...] 3 12-14 4 15+ 5 lan of [facility], Carissa Talbot OT - 01/08/2015 3:33 [...] precautions & posted on board. Call li ght in place. Occupational Therapy will follow Jose [...] transfer,review cervical precautions Electronically signed by: Carissa Dickerson, OT, 01/08/2015 15:33 lan of Care - [...] smiles on post-surgery, which he has done. Stephanie baer believes God has given him a ministry to make people smile, he explained. When he goes to [facility], he looks for aisles that are almost completely empty, he then walks up to a [facility] te stranger and will asked them if they [...] it n eeds to be. Patient is Mandaen and requested prayer for him and his . They also prayed for me. Spiritual Intervention: Patient was in high spirits, he welcomed copy lathe tender visit, supporti ve listening and prayer. Spiritual Outcomes: Patient express thanks for visit and prayer. Spiritual Goals/Follow up: School Traffic Guard will continue to proved ongoing emotional/spiritual s [...] Sit To Supine, Rehab Eval Level Of [place]: Sit/Supine: supervision/set-up Assistive Device: Sit/Supine: bed features Goal Bed Mobility Sit to Supine Sit to Supine STG Status: New STG Bed Mobility Sit to Supine: independent Bed Mobility Skill: Supine To Sit, Rehab Eval Level Of [place]: Supine/Sit: supervision/set-up Assistive Device: Supine/Sit: bed features Goal Bed Mobility Supine to Sit Supine to Sit STG Status: New STG Bed Mobility Supine to Sit : independent Transfers Transfer Skill: Bed To Chair/Chair To Bed, Rehab Eval Level Of [place]: Bed To Chair: contact guard assist (75% patients effort) Assistive Device: 2 wheeled walker Goal Transfers Bed to Chair/Chair to Bed Bed to Chair/Chair to Bed STG Status: New STG Transfers Bed to Chair/Chair to Bed: modified independent Transfer Skill: Sit To Stand, Rehab Eval Level Of [place]: Sit/Stand: contact guard assist (75% patients effort) Assistive Device For Transfer: Sit/Stand: 2 wheeled walker Goal Transfers Sit to Stand Sit to Stand STG Status: New STG Transfers Sit to Stand : modified independent Gait Gait Skills, PT Eval Level Of [place]: Gait: contact guard assist (75% patient effort) [...] fluids running. MS BUE & BLE 4/5. Assembly Repairer and plantar/dorsi strong. lan of Care - Caroline Reinoso RRT - 01/08/2015 3:21 AM PDTProblem: General Plan of Care (Adult, Obstetrics) Goal: Care Plan Shift Summary & Review . Remains on 2 lpm nc post op. Neb tx given via mouthpiece in lieu of home regimen Advair. BS appear clear, npc. p Note - Olivier Stern DO - 01/07/2015 7:31 PM PDTDATE: 01/07/2015 SURGEON: Aleksander Stern DO MATERIAL LOADER: YUNIER Porter PREOPERATIVE DIAGNOSIS 1. Spondylolisthesis C3-5. [...] Hemovac posterior. INDICATIONS FOR THE PROCEDURE: Mr. Palafox is a 54-year-old man who presents with [...] until th e uncovertebral joints were exposed. Topaz distraction pins were placed at the C4-5 [...] 11 mm cortical ca ncellous bone from [employer] was chosen, and to achieve arthrodesis, endplates [...] well and was snug. Next, th e Topaz pins were moved to the C6 and C7 vertebral bodies. Bone wax was used to fill the ho les created by the Topaz pins previously. Next, attention was turned to the C6-7 level. The diskectomy was initiated with #11 by moy sing the annulus at C6-7. Diskectomy was [...] the anterior approach was aborted. Next, the Topaz distraction pins were placed at the C3-4 [...] inferior endplates and the neural foramina bilate maday. These were decompressed using high-speed electric drilling as well as Kerrison rongeu rs. Using a blunt nerve hook, the foramina and undersurface of both vertebral bodies were tr acked, and exiting nerve root was found to be well decompressed. The clean disk space was sized appropriately with a trial, and a 5 x 14 x 11 mm cortical ca ncellous bone from [employer] was chosen, and to achieve arthrodesis, endplates of the disk s pace were abraded again, and then, the permanent spacer was inserted into the disk space. It fit well and was snug. Next, the Topaz pins were removed and bone wax was placed where the pins were to arrest will ne bleeding. A 80 mm Agenda [employer] plate was chosen. This is by [employer]. It was p laced on top of [...] determine ideal trajectory of screws from C3-T2 bilate rally. Using high speed electric drilling, helicopter pilot instructor holes were drilled bilaterally into lateral masses [...] Jose Raul Palafox 54 y.o. male 1960 [id number] Proc. Date 01/07/2015 Preop Dx Acquired spondylolisthesis Postop Dx same Procedure ACDF C3-7, posterior cervical fusion C3-T2, laminectomy C6-T2 Anesthesia General Surgeon Aleksander Stern DO Banquet Houseperson YUNIER Porter EBL 350 mL Findings Findings consistent with scheduled procedure. No other abnormalities found. Complications none Specimens * No specimens in log * Drains Drain/Device Site 01/07/15 1544 #1 anterior cervical spine collapsible closed device (A ctive) Electronically signed by: Aleksander Stern DO 01/07/2015 19:30 [facility] lan of Care - Ryan Gudino PT - 01/07/2015 7:16 PM PDTProblem: General Plan of Care (Adult, Obstetrics) Goal: Care Plan Shift Summary & Review . Missed Visit Patient Information Patient Name: Jose Raul Palafox Date of : 1960 Age: 54 y.o. The patient was unable to be seen for today's scheduled visit [facility]. Plan: Eval tomorrow Electronically [...] 01/11/2015 until | | | | | ([facility]) Asthma, | 01/11/2015 | | | | [...] disease) | | | | | | ([facility]) Asthma, | | | | | | [...] lung | | | | | | ([facility]) Essential | | | | | | [...] hardware spanning the levels | | of A3cqoudhr T2. There is no evidence of hardware [...] | | + +---------+ + + [place] Antione-Sid Ohara No Charge (01/07/2015 6:41 PM PDT) + [...] + | [facility] | [address] | [place] | | | [facility] | | [id number] | | | - BLOOD BANK | [...] | | | | | | STSaritha TYREL | | [...] + | [facility] | [address] | [place] | [phone] | | [facility] | | [address] | | | - LABORATORY | | [...] | [facility] | [address] | [place] | [phone] | | [facility] | | [address] | | | - LABORATORY | | | | + + + + + documented in this encounter Visit Diagnoses + + | Diagnosis | + + | Acquired spondylolisthesis | + + documented in this encounter
--- OUTSIDE RECORDS SUMMARY | ~2020-03-18 | XMS | Encounter Summary ---
Demographics + + + | Address | [address] | | | [place] [address] | + + + | Home Phone | | + + + | Preferred Language | Unknown | + + + | Marital Status | | + + + | Anglican Affiliation | Unknown | + + + | Race | White | + + + | Ethnic Group | Not or | + + + Author + + + | Author | [facility] | | | and [place] | + + + | Organization | [facility] | | | [...] Team Providers + +------+ + | Care Geodetic Engineer Name | Role | Phone | + +------+ + | Gary Gomez MD | PCP | | + +------+ + Reason for Visit +--------+--------+ + | Reason | Onset | Comments | | | Date | | +--------+--------+ + | Other | 01/03/ | pre-surgical check-in instructions | | | 2014 | | +--------+--------+ + Encounter Details +--------+ + + + + | Date | Type | Department | Care Team | Description | +--------+ + + + + | 01/03/ | Telephone | [facility] | Aleksander Stern, | Other (pre-surgical | | 2014 | | NEUROSURGERY [address] | DO [address] | check-in | | | | [address] | [address] [place], [place] | instructions) | | | | [place], [place] | [id number] | | | | | [address] | | | | | | [phone] | | | +--------+ + + + [...] this encounter Miscellaneous Notes Telephone Encounter - Sarai Latham, Master of Arts - 01/03/2015 8:56 AM PDTCalled to give pre-surgical check-in instructions. Patient verbalized understanding. Surgery date: 01/07/2015 Check-in Time: 07:45am No solids or liquids after midnight the night before surgery. Follow the cleansing instructions provided beginning the night before surgery after you kevyn wer or bathe. No showering the morning of surgery. Please do not wear jewelry, contact lenses, nail sinhala (on fingers or toes), or make-up to surgery check-in. If you have dentures, or hearing aids please bring the cases to check-in. Medications instructions: Aspirin- Has not taking for 6 months. documented in this encounter Plan of Treatment Not on filedocumented as of this encounter Visit Diagnoses Not on filedocumented in this encounter"
--- OUTSIDE RECORDS SUMMARY | ~2020-03-18 | XMS | Encounter Summary ---
Demographics + + + | Address | [address] | | | [place] [address] | + + + | Home Phone [...] Team Providers + +------+ + | Care Leather Toggler Name | Role | Phone | + [...] + + | 01/11/ | Office | [facility] | Latonia Olson, | ST elevation | | 2017 | Visit | [facility] | MD [address] | myocardial | | | | REHABILITATION [address] | [place] | infarction involving | | | | [address] [place] | [address] | right coronary | | | | [place] [address] | | artery (HCC) | | | | [phone] | | | +--------+---------+ + + + [...] of this encounter Progress Raymundo Padilla - 01/11/2017 12:00 PM PDT [facility]IL[facility]ATION [address] [facility] [address] Cardiac Rehab Date: 01/11/2017 Patient Information Patient Name: Jose Raul Palafox Date of : 1960 Age: 56 y.o. Encounter Diagnoses Code Name Primary? 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 Yes Any Changes in Medications? No Yes, but hasn't come thru on the [place] side yet. Any Problems to Report? No Denies any adverse symptoms during exercise. Sinus rhythm without ectopy. SBP with no change during exertion. Compliant with medications and therapeutic lifestyle changes. Continue monitored exercise. Any abnormal vital signs or rhythm strips will be reported in progress note. Electronically signed by: Raymundo Henriquez, 01/11/2017 17:51 Patient Name: Jose Raul Palafox/: 1960/ documented in this encounte r Plan of Treatment Not on filedocumented as of this encounter Visit Diagnoses + + | Diagnosis | + + | ST elevation myocardial infarction involving right coronary artery (HCC) Acute | | myocardial infarction of inferoposterior wall, initial episode of care | + + documented in this encounter"
--- OUTSIDE RECORDS SUMMARY | ~2020-03-18 | XMS | Encounter Summary ---
Demographics + + + | Address | [address] | | | [place] [address] | + + + | Home Phone [...] Team Providers + +------+ + | Care Bird Keeper Name | Role | Phone | + +------+ + | Gary Gomez MD | PCP | | + +------+ + Reason for Visit + +--------+ + | Reason | Onset | Comments | | | Date | | + +--------+ + | Hospital Follow-up | 11/16/ | | | | 2016 | | + +--------+ + Encounter Details +--------+ + + + + | Date | Type | Department | Care Team | Description | +--------+ + + + + | 11/16/ | Telephone | [facility] | Shannan Justin, | Hospital Follow-up | | 2017 | | [facility] | PharmD [address] | | | | | [address] [place] | | | | | [place] [address] | [place] [address] | | | | | [phone] | [phone] | | +--------+ + + + + [...] Encounter - Diana Wilson RN - 11/16/2016 4:14 PM PDTRecords resent to [facility]. More samples of Brilinta mailed to patient. [facility] has sent referral by fax to us this afternoon. PSR's will work on scheduling the patient this week. ........................... ................Diana Wilson RN on 11/16/16 at 16:15 elephone Encounter - Shannan Justin PharmD - 11/16/2016 3:05 PM PDTPatient called regarding Brilinta--he on ly has about 5 bottles of samples left. Not sure where [place] is on processing this Rx for him to get more. Additionally, company that is supposed to make referral to Dr. Olson for f ollow-up may not have processed it yet. Patient worried about running out of Brilinta, as well as not getting in to see Dr. Jose moreno for follow up prior to end october. Transferred patient up to Cardiology for guidance. Shannan Justin, PHARMD 11/16/2016 15:08 documented in thi s encounter Plan of Treatment Not on filedocumented as of this encounter Visit Diagnoses Not on filedocumented in this encounter"
--- OUTSIDE RECORDS SUMMARY | ~2020-03-18 | XMS | Encounter Summary ---
Demographics + + + | Address | [address] | | | [place] [address] | + + + | Home Phone | | + + + | Preferred Language | Unknown | + + + | Marital Status | | + + + | Nondenominational Affiliation | Unknown | + + + [...] Team Providers + +------+ + | Care Nailhead Puncher Name | Role | Phone | + +------+ + | Gary Gomez MD | PCP | | + +------+ + Reason for Visit +--------+--------+ + | Reason | Onset | Comments | | | Date | | +--------+--------+ + | Other | 12/17/ | test results, plan of care | | | 2016 | | +--------+--------+ + Encounter Details +--------+ + + + + | Date | Type | Department | Care Team | Description | +--------+ + + + + | 12/17/ | Telephone | [facility] | Latonia Olson, | Other (test results, | | 2016 | | CARDIOLOGY [address] | MD [address] | plan of care) | | | | [place], | [place] | | | | | [place] [address] | [address] | | | | | [phone] | | | +--------+ + + + [...] Telephone Encounter - Diana Wilson RN - 12/17/2016 2:32 PM PDTHeart cath is scheduled for 12/23/16 @ 7:30am ...........................................Diana Wilson RN on 12/17 at 14:33 elephone Encounter - Diana Wilson RN - 12/17/2016 1:22 PM PDTScott is notified, instructions were given, will ask PSR's to please schedule the test and notify the patient of the date and time .... .......................................Diana Wilson RN on 12/17/16 at 13:23 elephone Encounter - Diana Wilson RN - 12/17/2016 1:11 PM PDTLeft message with Iman, Bill's , for him to return my call ...........................................Diana Wilson RN on 05/2 6/17 at 13:12 elephone Encounter - Diana Wilson RN - 12/17/2016 1:10 PM PDT----- Message from Latonia Olson MD sent at 12/16/2016 20:48 PDT ----- Please set him up for a cardiac cath. Whitney ----- Message ----- From: Lulu Terrazas MD Sent: 12/16/2016 16:31 To: Latonia Olson MD documented in this e ncounter Plan of Treatment Not on filedocumented as of this encounter Visit Diagnoses Not on filedocumented in this encounter"
[~2020-03-18 13:50] MED LIST: ADVAIR 250-501 EACH INH; ATROVENT HFA12.9 GM INH; BUSPIRONE HCL15 MG PO; CIPRO500 MG PO; CYCLOBENZAPRINE10 MG PO; GABAPENTIN600 MG PO; HYDROCODON-ACE1 EAC8 PO; LEVOTHYROXINE125 MCG PO; METOPROLOL TART25 MG PO; OMEPRAZOLE20 MG; PEPCID40 MG PO; PERCOCET 5-3251 EACH PO; PREDNISONE10 MG PO; PREDNISONE20 MG PO; REQUIP0.5 MG PO; XOPENEX1.25 MG/3 INH
[2020-03-18] MEDS ORDERED: LYRICA100 MG PO (14:17)
== END 2020-03-18 15:22 | disposition home or self-care (01) ==
LOC: ED 13:50
DX: S30.93XA Unspecified superficial injury of penis, initial encounter (principal); J44.9 Chronic obstructive pulmonary disease, unspecified; K21.9 Gastro-esophageal reflux disease without esophagitis; I25.2 Old myocardial infarction; F17.200 Nicotine dependence, unspecified, uncomplicated; Z88.8 Allergy status to other drugs, medicaments and biological substances; Z88.6 Allergy status to analgesic agent; Z79.899 Other long term (current) drug therapy; X58.XXXA Exposure to other specified factors, initial encounter
CPT/HCPCS: 99283

== ENCOUNTER 2021-06-17 06:00 | Day surgery (SDC) | payer OTHER ==
[~2021-06-17] VITALS: Ht 190.5 cm; Wt 100.0 kg
[~2021-06-17 06:00] MED LIST changes: +ACID REDUCER20 MG PO; +BAYER CHEWABLE81 MG PO; +EFFIENT10 MG PO; +ISOSORBIDE MONO60 MG PO; +LIPITOR20 MG; +LYRICA100 MG PO; +METOPROLOL TAR100 MG PO; +QUIT 22 MG BUCCAL; +SINGULAIR10 MG PO
--- NOTE | 2021-06-17 08:00 | NUR ---
06/17/21 0800 Kaylyn Mendieta 0754 PT ARRIVED ON LEFT SIDE ASLEEP. VSS. RESP EVEN AND UNLABORED, 2L VIA NC. 0758 PT WAKES TO TACTILE STIMULI AND COUGHING. PT REORIENTED TO PACU.
--- NOTE | 2021-06-17 10:24 | NUR ---
PT ALERT, ORIENTED AND VERY OPEN ABOUT HIS ANXIOUS FEELINGS.HE IS AFRAID OF WHAT MIGHT BE DISCOVERED THROUGH SCOPE TODAY.PT ALSO EXPRESSED HIS STRUGGLE WITH LOSING HIS LAST CHANCE. HOSPITALS FOR HIM SEEM TO AMPLIFY HIS LOSS. GAVE COMFORT AND ENCOURAGEMENT FOLLOWED BY PRAYER ON PT'S BEHALF. OR STAFF WAS WAITING, GAVE BLESSING AND WILL FOLLOW NEEDED
--- NOTE | 2021-06-17 10:58 | OR ---
[facility] [address] [place], [place] [address] Signed DATE OF OPERATION: 06/17/2021 SURGEON: Aristeo Quevedo MD PREOPERATIVE DIAGNOSES: 1. Personal history of adenomatous colonic polyps in 2013. 2. Diverticulosis. 3. Sister with colonic polyps in her 50s and a history of Crohn disease. POSTOPERATIVE DIAGNOSES: 1. Minimal to moderate sigmoid and left diverticulosis. 2. Moderate internal and external hemorrhoids. 3. Poor bowel prep. PROCEDURE: Colonoscopy without biopsies. ESTIMATED BLOOD LOSS: None. INDICATIONS: Jennifer is a 60-year-old gentleman, asked to see me for a followup colonoscopy. He underwent colonoscopy in [address] Meza. He had two adenomatous polyps removed and was found to have diverticulosis. He was told to follow up in 5 years. In addition, his sister had colonic polyps removed in her 50s and is also diagnosed with Crohn disease. In the office, I gave Jennifer a pamphlet on colonoscopy. He understands the nature of the test. There is risk including, but not limited to gas bloating, crampy abdominal pain, bleeding, perforation requiring surgery, and missed diagnosis. He also understands the need for IV conscious sedation. Given his poor functional status and advanced medical issues, we asked for monitored anesthesia care with our nurse bevel polisher. That worked out quite well for Jennifer today. He had expressed understanding and wished to proceed. PROCEDURE NOTE: We met with Jennifer in our preop area. Unfortunately, he ate food up until 8:00 p.m. last night. Then, he took his bowel prep late around 10:30 or 11 o'clock in the evening. He was up going to the bathroom. We offered to reschedule him at this time, but he wanted to go ahead and proceed. Consequently, he was taken into our endoscopy suite and placed in the left lateral decubitus position. He was given monitored anesthesia care with propofol per our nurse bevel polisher. A digital rectal exam was performed. He Electronically Signed By: ARISTEO QUEVEDO MD 06/17/21 1058 PATIENT NAME: JENNIFER MALDONADO OPERATIVE REPORT DATE OF : 56 REPORT #: [id number] PHYSICIAN: ARISTEO QUEVEDO MD PCP: ABDOULAYE OLGUIN MD REPORT IS CONFIDENTIAL AND NOT TO BE RELEASED WITHOUT AUTHORIZATION [address] [address] Signed does have moderate-sized external hemorrhoids. The right seems to be worse than the left. He has good sphincter tone. He has some induration to the prostate as well. The adult colonoscope was then introduced and advanced under direct visualization of the camera. Of course, he has a poor bowel prep with multiple areas of liquid heavily particulate stool matter that simply cannot be suctioned through the scope. We had enough room though to pass under direct visualization right up into the cecum itself. We could easily see the appendiceal orifice and ileocecal valve. The scope had been slowly withdrawn. We had taken pictures throughout for photodocumentation. At least 50% maybe 60% of the mucosa was visualized. He does have diverticula in his left and sigmoid colon. They were moderate in size, few in number, and scattered about. We did not see any colonic polyps. The rectum was unremarkable. Upon retroflexion of scope, he does have moderate internal hemorrhoid columns as well. After this, the gas was suctioned out and the colonoscope removed. Jennifer tolerated the procedure quite well. RECOMMENDATIONS: Jennifer can follow up my office in 7 to 14 days to review his results. He strongly needs to consider a double bowel prep and rescheduling this colonoscopy in the months ahead. Aristeo Quevedo MD [facility] /[id number] cc: MD Abdoulaye Tidwell MD Copies: ARISTEO QUEVEDO MD, DELWYN MD ~ Electronically Signed By: ARISTEO QUEVEDO MD 06/17/21 1058 PATIENT NAME: JENNIFER MALDONADO OPERATIVE REPORT DATE OF : 56 REPORT #: [id number] PHYSICIAN: ARISTEO QUEVEDO MD PCP: ABDOULAYE OLGUIN MD REPORT IS CONFIDENTIAL AND NOT TO BE RELEASED WITHOUT AUTHORIZATION
== END 2021-06-17 08:45 | disposition home or self-care (01) ==
LOC: OPS 06:00 → DS 06:00 → OPS 06:45 → DS 07:30 → OPS 08:45 → DS 09:15
PROVIDERS: ATTEND Colon & Rectal Surgery
PROC: 0DJD8ZZ Inspection of Lower Intestinal Tract, Via Natural or Artificial Opening Endoscopic (ICD-10-PCS; principal; 2021-06-17 06:45)
DX: Z09 Encounter for follow-up examination after completed treatment for conditions other than malignant neoplasm (principal); K57.30 Diverticulosis of large intestine without perforation or abscess without bleeding; K64.8 Other hemorrhoids; K64.4 Residual hemorrhoidal skin tags; J44.9 Chronic obstructive pulmonary disease, unspecified; I10 Essential (primary) hypertension; E03.9 Hypothyroidism, unspecified; F17.210 Nicotine dependence, cigarettes, uncomplicated; K21.9 Gastro-esophageal reflux disease without esophagitis; Z88.1 Allergy status to other antibiotic agents; Z88.8 Allergy status to other drugs, medicaments and biological substances; Z86.010 Personal history of colon polyps; Z83.71 Family history of colonic polyps
CPT/HCPCS: J0690; J2001; J2704; J7121

== ENCOUNTER 2022-12-26 07:45 | Inpatient (IN) | payer MEDICARE ==
[2022-12-26] VITALS (10 sets, daily range): BP systolic 111–133; BP diastolic 68–89
[~2022-12-26] VITALS: Ht 190.5 cm; Wt 102.0 kg
[~2022-12-26 07:45] MED LIST changes: -LIPITOR20 MG; +LIPITOR20 MG PO; -OMEPRAZOLE20 MG; +OMEPRAZOLE20 MG PO; -REQUIP0.5 MG PO; +ROPINIROLE HCL0.5 MG PO
--- NOTE | 2022-12-26 16:44 | NUR ---
critical lab value verbally reported to DR. Blanc of WBC 34.1. Primary rn aware.
--- NOTE | 2022-12-26 17:21 | NUR ---
BEDSIDE REPORT OBTAINED FROM [employer] DEVELOPER. PT APPEARS TO BE SEDATED, RESTING IN BED IN NO APPARENT DISTRESS WITH A RASS OF -3. PT IS DIFFICULT TO ARROUSE AND UNINTELLIGIBLE SPEACH. V/S ASSESSED AND SAFETY CHECK PERFORMED. PIV ASSESSED AND FOUND TO BE PATENT. R. UPPER EXTREMITY ASSESSED AND FOUND TO BE COLD TO TOUCH - SAME WITH L. UPPER. EQUAL AND BILAT. CAP REFILL. UNABLE TO PALPATE PULSE ON R. UPPER EXTREMITY. WILL ATTEMPT DOPPLER. LS COARSE WITH EXPIRATORY WHEEZES NOTED THROUGHOUT. PT JUST RECEIVED NUB TREATMENT AND RECEMIC EPI. UNABLE TO NOTE ANY STRIDOR AT THIS TIME. RESPIRATIONS ARE NON-LABORED AND PT IS BREATHING AT A NORMAL RATE. PT IS ON O2 VIA NC AT 5 LPM CAPNOGRAPHY NOTED AT 46 AND SPO2 AT 97. PT IS IN A NSR, NORMOTENSIVE AND A-FEBRILE.
--- NOTE | 2022-12-26 17:59 | NUR ---
12/26/22 1759 Lily Flores 1605 PATIENT INTO CRITICAL CARE UNIT ROOM 130. PATIENT NONAROUSABLE. PATIENT BREATHING LABORED. JAW THRUST PERFORMED. OXYGEN AT 8 LITER VIA MASK. RR 10-30. SR ON TELE. SURGICAL DRESSING CLEAN, DRY AND INTACT. CAP REFILL LESS THAN 2 SECONDS ON RUE AND WARM TO TOUCH. IVF INFUSING. SCD'S ON. JAMIR DONOHUE AT BEDSIDE. REPORT RECIEVED. 1610 PATIENT NONAROUSABLE. PATIENT BREATHING LABORED. JAW THRUST PERFORMED. OXYGEN AT 8 LITERS VIA MASK. RR 10-30. OXYGEN SATURATIONS OBTAINED HIGHER THAN 88% AT THIS TIME. SR ON TELE. SCD'S ON. IVF INFUSING. 1615 PATIENT REACTIVE BUT NOT ORIENTED. PATIENT BREATHING LABORED BUT ABLE TO MAINTAIN AIRWAY AT THIS TIME. OXYGEN AT 8 LITERS VIA MASK. RR 10-30. PATIENT UNABLE TO STATE IF HE IS IN PAIN OR NAUSEATED. SR ON TELE. SCD'S ON. IVF INFUSING. 1625 PATIENT TRYING TO TAKE MASK OFF. PATIENT FRUSTRATED AND STATING "I DO NOT WANT THIS THING ON MY FACE." PATIENT EDUCATED ON IMPORTANCE OF OXYGEN. PATIENT DISORIENTED. PATIENT BREATHING LABORED. RR 10-30 OXYGEN SATURATIONS 80-95%. SR ON TELE.
--- NOTE | 2022-12-26 18:33 | CONS ---
[facility] [address] [place], [place] [address] Signed DATE OF CONSULTATION: 12/26/2022 TIME: 1:30 p.m. CONSULTING PHYSICIAN: Shakir Shin MD. REQUESTING PHYSICIAN: Dr. Becker. PROBLEM: Severe right arm pain, blistering and question of necrotizing fasciitis. HISTORY: This 61-year-old white man lives in [place]. He lives alone. He sees Abdoulaye Gomez as his physician who is a physician at the [facility] in [place]. He is said to have fallen on his right arm yesterday and had progressive discomfort and presented to the emergency room with severe pain and impressive development of large vesicles of his medial right forearm. Evaluation showed an elevated white count to greater than 26,000. His lactic acid level was normal, however, at 0.9. His creatinine is 0.77. A CK-MB is pending. Broad-spectrum antibiotic coverage was initiated as I was unavoidably detained in the operating room. Imaging studies have been undertaken including a plain x-ray, which shows no evidence of fracture. A CT scan was then undertaken of the upper extremity which showed no acute fracture of the humerus, radius or ulnar areas and no joint space dislocation or effusion. There is diffuse soft tissue edema and slightly more focal over the olecranon. There are areas of blistering as noted clinically and a tiny focus of gas in the soft tissue in the upper antecubital fossa. PAST MEDICAL HISTORY: Negative for diabetes. He denies any drug use. He has never had arm infection in the past. SOCIAL HISTORY: He lives alone in [place]. He last ate yesterday. PHYSICAL EXAMINATION: GENERAL: This is a somewhat distant man in conversation, who is quite markedly uncomfortable. VITAL SIGNS: On presentation, temperature is 98 with a blood pressure of . Currently, temperature 97.9 with a blood pressure of 111/88. Electronically Signed By: SHAKIR SHIN MD 12/26/22 1833 PATIENT NAME: JENNIFER MALDONADO CONSULTATION DATE OF : 56 REPORT #: [id number] PHYSICIAN: SHAKIR SHIN MD PCP: ABDOULAYE GOMEZ MD REPORT IS CONFIDENTIAL AND NOT TO BE RELEASED WITHOUT AUTHORIZATION [facility] [address] [place], [place] [address] Signed NECK: Trachea is midline. CHEST: Shows normal respiratory excursion. ABDOMEN: Soft and nondistended. EXTREMITIES: His right arm shows significant blistering in the medial and antecubital space. His forearm, wrist and upper arm are markedly tender to touch and the compartments feel quite firm. I see no evidence of necrotizing soft tissue infection or ecchymosis. ASSESSMENT: However, unusual it is I believe his primary problem is acute compartment syndrome of the arm. I do not see evidence of necrotizing soft tissue infection, though his white count is markedly elevated at 28.2. The fall though seemingly trivial and first discussion may be more profound than one thought. However, there is no evidence of fracture. If there is underlying soft tissue infection, it certainly needs debridement, though I think that is unlikely. I discussed this with the patient. the bullae of the elbow area are strongly indicative of tension on the skin and a testimony to the severe swelling he is experiencing. PLAN: We will take to operation without delay. I will do a [place] compartment pressure measurements in the ER prior to transfer to the OR in the meantime. The risks of bleeding, infection, limb loss, nerve injury and other unforeseen complications was reviewed with the patient. He understands and agrees to proceed as I have described. MD ALISON Sotomayor/KIMMYL /[id number] cc: MD Dr. Shakir Campos Electronically Signed By: SHAKIR SHIN MD 12/26/221832 PATIENT NAME: JENNIFER MALDONADO CONSULTATION DATE OF : 56 REPORT #: [id number] PHYSICIAN: SHAKIR SHIN MD PCP: ABDOULAYE GOMEZ MD REPORT IS CONFIDENTIAL AND NOT TO BE RELEASED WITHOUT AUTHORIZATION [facility] [address] [place], [place] [address] Signed Copies: ABDOULAYE GOMEZ MD ~ Electronically Signed By: SHAKIR SHIN MD 12/26/221832 PATIENT NAME: JENNIFER MALDONADO CONSULTATION DATE OF : 56 REPORT #: [id number] PHYSICIAN: SHAKIR SHIN MD PCP: ABDOULAYE GOMEZ MD REPORT IS CONFIDENTIAL AND NOT TO BE RELEASED WITHOUT AUTHORIZATION
--- NOTE | 2022-12-26 18:33 | OR ---
[facility] [address] [place], [place] [address] Signed DATE OF OPERATION: 12/26/2022 SURGEON: Shakir Shin MD PREOPERATIVE DIAGNOSES: 1. Severely painful right upper extremity with extensive edema and swelling following a fall yesterday, December 25, 2022. 2. Multiple bullous lesions of antecubital space and right proximal forearm. 3. Probable compartment syndrome. POSTOPERATIVE DIAGNOSIS: Multicompartment syndrome, right upper extremity. PROCEDURES: 1. Nolan compartment pressure evaluation of deltoid, biceps and forearm muscle compartments. 2. Right upper extremity compartment fasciotomy including biceps, deltoid, forearm and carpal canal and posterior forearm fasciotomy. ANESTHESIA: General endotracheal, Ryan Donovan CRNA. INDICATION: This 61-year-old white man fell yesterday at home. He had increasing pain and tightness of his arm and swelling which became unbearable. He presented to the emergency room where he was evaluated by Dr. Varner. He was noted to have bullous changes in the antecubital space with clear fluid. These were extensive and mostly at the elbow crease on the volar aspect, but also inferior to that site. Somewhere superior as well. Initial evaluation was concerning for necrotizing fasciitis and antibiotic therapy was initiated. I was unavoidably detained in the operating room and could not come to immediately evaluate. The patient had exquisite tenderness to palpation or even light touch to the upper extremity on the right side and very tense muscle compartments including the forearm, upper arm and deltoid area. Plain x-ray confirmed no evidence of fracture and a CT scan focusing on the right arm did not show subcutaneous area, although there was one small bubble perhaps in the antecubital space noted. Clinical impression is that of acute compartment syndrome of the right upper extremity. Given the urgency of this problem, I have recommended direct admission to the operating room with right upper extremity fasciotomy to include the forearm, upper arm, possibly the deltoid and the posterior forearm. Extension into the carpal canal is anticipated Electronically Signed By: SHAKIR SHIN MD 12/26/22 1833 PATIENT NAME: JENNIFER MALDONADO OPERATIVE REPORT DATE OF : 56 REPORT #: [id number] PHYSICIAN: SHAKIR SHIN MD PCP: ABDOULAYE OLGUIN MD REPORT IS CONFIDENTIAL AND NOT TO BE RELEASED WITHOUT AUTHORIZATION [address] [address] Signed as well. The patient understands the risk of fasciotomy, which includes bleeding, infection, failure of diagnosis, misdiagnosis, and need for other indicated procedures. He also knows that definitive treatment may require additional surgery or other interventions. Of special note, radial pulses faintly present preoperatively. The contralateral (left) arm is normal. FINDINGS: Compartment pressures were taken of the deltoid, the volar forearm and the biceps muscle. Pressure of the deltoid was 17 mmHg, the forearm 66 mmHg and the biceps 40 mmHg . A post decompressive anterior deltoid pressure intraoperatively was noted to be 10 mmHg. Decompression of the entire right arm was undertaken including incision onto the palmar surface. Notably, the fingers and hand seem to be uninvolved clinically preoperatively. Median nerve was well identified and unharmed. The muscular compartment on the volar forearm showed once the fascia was incised, bulging of the muscle could clinically concordant to compartment syndrome. Extension to the biceps similarly allowed for release of the fascial compartments and with mobilization of the biceps some decompression of the triceps compartment. Given the edema, swelling and tightness in the superior aspect of the medial right arm extension of the incision was taken onto the deltopectoral groove area freeing the anterior deltoid compartment on to the area of the pectoralis fascia. A dorsal compartment release of the forearm was also undertaken freeing the muscle completely. There was no evidence of necrotizing infection, pus, fracture, or other problem. A Doppler probe was used to affirm flow in the brachial artery, was difficult to assess in the region of the radial artery. DESCRIPTION OF PROCEDURE: The patient was brought to the operating room, given a general endotracheal anesthetic. I had planned to do compartment pressures in the emergency room, but he was simply intolerant of any manipulation or touching of the arm and it was deferred until immediately prior to preparation. A sterile Betadine solution was applied to the deltoid, the biceps and the forearm compartments. Using the [employer] pressure compartment kit per manufacture's instructions, the deltoid pressure was noted to be 17 mmHg, the forearm 66 mmHg and the biceps 40 mmHg. This was certainly confirmatory of compartment syndrome. The right upper extremity was prepared from the fingertips up into the pectoralis of the chest. A rather typical volar arm fasciotomy incision was drawn extending to include the carpal canal, the forearm and the medial aspect of the biceps. An incision was begun superiorly with a 15 blade and extended through the very edematous subcutaneous tissue with electrocautery. Hemostasis was assured with Electronically Signed By: SHAKIR SHIN MD 12/26/22 1833 PATIENT NAME: JENNIFER MALDONADO OPERATIVE REPORT DATE OF : 56 REPORT #: [id number] PHYSICIAN: SHAKIR SHIN MD PCP: ABDOULAYE OLGUIN MD REPORT IS CONFIDENTIAL AND NOT TO BE RELEASED WITHOUT AUTHORIZATION [facility] [address] [place], [place] [address] Signed electrocautery throughout. The fascial compartment on the biceps was incised with electrocautery noting muscle bulging out. This was extended tangentially across the antecubital space. Care was taken to avoid vision of the biceps tendon itself of course. An incision was carried towards the radial aspect of the forearm and again curving back towards the ulnar side and ultimately to the palmar fascia. Division of the transverse carpal ligament was undertaken under direct visualization with a 15 blade, placing the hemostat beneath the transverse carpal ligament to protect the underlying median nerve. This was extended cephalad once again and freeing of all the muscular compartments from the volar aspect. The muscle itself appeared to be viable. Extension cephalad was undertaken dividing the fibrous bands encompassing the biceps compartment. It was found to be quite edematous more proximally up to and including the deltopectoral groove. An incision was extended up onto the deltoid medially and once freed up, complete release of all the muscular compartments deep and lateral to these areas was accomplished. An additional deltoid pressure was taken posteriorly which was only 12 mmHg and therefore additional incision of the deltoid was not undertaken. Attention was turned to the dorsal compartment on the forearm. 2 cm inferior to the radial protuberance, a linear incision was made directed to the wrist crease distally. Dissection carried through the subcutaneous tissue with electrocautery and the fascial compartment incised freeing the dorsal forearm compartment completely. Reinspection of muscular compartments allowed for blunt dissection laterally, medially and deep to assure that all muscular compartments were freed up. In the proximal upper arm, the bicep was rotated in the posterior compartment suggestive of the triceps muscle that was carefully incised, avoiding injury to any neurovascular structures. Irrigation was undertaken and plans were then made for closure. Using a dynamic tension approach with yellow vessel loops and duy, a lace-up type closure of all wounds was undertaken with yellow vessel loops. Photographs were taken throughout the course of the procedure. Xeroform gauze was applied to all open areas followed by cotton sponges and Kerlix and ultimately an Addy wrap for the proximal and distal arm segments. The patient was ultimately extubated and transferred to the recovery room in good condition having suffered no known complications. Sponge, needle, and instrument counts were reported as correct x3. Blood loss was estimated at 50 mL or less. Shakir Shin MD Electronically Signed By: SHAKIR SHIN MD 12/26/221832 PATIENT NAME: JENNIFER MALDONADO OPERATIVE REPORT DATE OF : 56 REPORT #: [id number] PHYSICIAN: SHAKIR SHIN MD PCP: ABDOULAYE OLGUIN MD REPORT IS CONFIDENTIAL AND NOT TO BE RELEASED WITHOUT AUTHORIZATION [address] [address] Signed ALISON/MAYUR /[id number] cc: MD Dr. Shakir Campos Copies: ABDOULAYE OLGUIN MD ~ Electronically Signed By: SHAKIR SHIN MD 12/26/22 1833 PATIENT NAME: ERICAJENNIFERKELSEY CLARK OPERATIVE REPORT DATE OF : 56 REPORT #: [id number] PHYSICIAN: SHAKIR SHIN MD PCP: ABDOULAYE OLGUIN MD REPORT IS CONFIDENTIAL AND NOT TO BE RELEASED WITHOUT AUTHORIZATION
--- NOTE | 2022-12-26 18:54 | NUR ---
PT MORE AWAKE, ALERT AND ORIENTED TO PERSON PLACE AND EVENT. PT CONFUSED TO TIME AND DATE. PT HAS BEEN IN A NSR, NORMOTENSIVE AND A-FEBRILE. BILATERAL UPPER EXTREMITIES ARE COOL TO TOUCH WITH DELAYED CAP REFILL. L. ARE WITH 2 + RAD PULSES. R. ARM UNABLE TO PALPATE RAD PULSE. R. RADIAL PULSE HEARED WITH USE OF DOPPLAR. PULSE MARKED WITH MARKER. PTS RESPIRATIONS REMAIN NON-LABORED. PT CONTINUED ON O2 VIA NC AT 3 LPM WITH CAPNOGRAPHY. PT C/O SEVERE, 10/10 PAIN TO R. UPPER EXTREMITY. PRN ANALGESIA ADMINISTERED WITH RELEIF. UNOWN LAST BM AND LAST URINE VOID.
--- NOTE | 2022-12-26 20:30 | NUR ---
RECEIVED REPORT FROM NURY GARCIA, ALL QUESTIONS AND CONCERNS WERE ADDRESSED AT THIS TIME; INCISION SITE IS COVERED WITH A CAST, R RADIAL PERIPHERAL PULSE IS FAINT BUT PALPABLE, ALL OTHER PERIPHERAL PULSES ARE STRONG, PT IS DROWSY BUT AROUSABLE, OPENS EYES TO SPEECH, C/O PAIN IN R ARM, PRN MORPHINE GIVEN, WILL CONTINUE TO MONITOR AND NOTIFY PROVIDER OF ANY CHANGES IN PT STATUS
[2022-12-27] VITALS (14 sets, daily range): BP systolic 74–144; BP diastolic 50–109
--- NOTE | 2022-12-27 05:02 | NUR ---
PT SLEPT INTERMITTENTLY OVER LAB MANAGER, C/O PAIN THROUGHOUT THE NIGHT, C/O CRUSHING PAIN IN R HAND, ABLE TO WIGGLE FINGERS ON R HAND, R RADIAL PULSE FAINT BUT PALPABLE, FINGERS ARE COLD TO THE TOUCH, CAST REMAINS IN PLACE, HTN WHILE IN PAIN, MORPHINE GIVEN MULTIPLE TIMES, PT IS DIAPHORETIC, CHECKED GLUCOSE AND FSBG WAS 56, PT ABLE TO DRINK JUICE, WILL RE-CHECK IN 15 MIN, AFEBRILE, WILL CONTINUE TO MONITOR AND NOTIFY PROVIDER WITH ANY CHANGES IN PT STATUS
--- NOTE | 2022-12-27 07:06 | NUR ---
WBC/BUN/CREAT WERE ELEVATED THIS MORNING (MD NOTIFIED), PAIN IS BEING CONTROLLED WITH PRN MORPHINE BUT PT IS STILL RATING PAIN 10 AT TIMES, PT WAS UNABLE TO URINATE AND WAS NOTIFIED, WANTED MURPHY CATHETER PLACED IF PT FELT IF HE COULD NOT VOID, MURPHY WAS PLACED AND 500 ML OF URINE WAS DRAINED, STATED THAT HE WOULD BE IN TO SEE THE PT THIS MORNING, WILL CONTINUE TO MONITOR
--- NOTE | 2022-12-27 07:20 | NUR ---
report from martha rn, pt in bed with r arm drsg wnl elevated on bedside table and pillow. hand cold to the touch with cap refill greater than 3 sec, blanches - radial pulse faint. drsg from [place] is cdi - pt has call light.
--- NOTE | 2022-12-27 07:58 | NUR ---
dr christianson in to see pt, pt reports pain in arm - this rn getting po meds and meal for pt.
--- NOTE | 2022-12-27 08:21 | NUR ---
in for assessment and meds, exp wheeze audible with pt at rest - noted bi laterally. pt extremities are all cool to the touch - he reports this is normal - he is setting in bed with only a sheet on and denies a gown or other blankets - po pain meds given and pt tollerated clear liq meal tray well - had 100% of liq. clear ensure. 0xygen is 99% room air at this time. fox cath has small amt of urine in bag, lr fusing at 125 niecy left hand iv site wnl.
--- NOTE | 2022-12-27 08:21 | NUR ---
PATIENT AWAKE IN BED, PAINFUL-RN AWARE AND AT BEDSIDE. BREAKFAST AT BEDSIDE. VITALS CHARTED.
--- NOTE | 2022-12-27 08:35 | NUR ---
increase iv rate 200 and monitoring i/o closely -
--- NOTE | 2022-12-27 09:28 | NUR ---
pt eyes closed, resp rate 13 on room air sat 97% with wheezes audible. pt urine out was 15 ml and iv rate was 200 ml - dr christianson here in unit and notified by this rn, if next hour is low - bolus with 1 litre lr.
--- NOTE | 2022-12-27 11:15 | NUR ---
IN TO SEE PATIENT, OLEG GARCIA AT THE BEDSIDE. PATIENT STATES HE CURRENTLY LIVES IN AN APARTMENT ALONE. HE STATES HIS FRIEND RAMOS IS WILLING TO ASSIST HIM AT DISCHARGE IF NEEDED. PATIENT DOES HAVE OXYGEN AT HOME, BUT STATES HE ONLY USES IT NEEDED. NO OTHER NEED FOR DME. PATIENT DOES USE THE FOOD BANK AND HAS BEEN IN CONTACT WITH [employer] FOR UTILITY ASSISTANCE. [facility]. DURING CONVERSATION WITH PATIENT HE LOOK VISBALY PAINFUL. ADVISED THAT CASE MANAGEMENT WILL ALLOW HIM TO REST AND WILL FOLLOW UP WITH HIM TOMORROW. ALL DEMOGRAPHIC INFORMATION CONFIRMED.
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
--- NOTE | 2022-12-27 13:28 | NUR ---
pt up in ch - bolus fusing of lr - urine 35 ml out in fox last hour. axox4, visiting with guest - r arm elevated.
--- NOTE | 2022-12-27 13:47 | NUR ---
Med rec completed.
--- NOTE | 2022-12-27 13:52 | NUR ---
pt in ch c/o nausea - zofran given. call light in reach . up in ch.
--- NOTE | 2022-12-27 14:03 | NUR ---
CALLED LIGHT ANSWERED, PATIENT HAD 400ML OUT IN EMESIS BAG. PILLOWS REPOSITIONED FOR COMFORT. RN NOTIFIED.
--- NOTE | 2022-12-27 18:02 | NUR ---
staff and this rn assisted pt from to bsc to attempt bm, no results - nauseated - zofran titrated and given. pt then assisted 1 person assist to bed, repositioned, right arm elevated on pillows - wiggles fingers - poor cap refill on both arms and legs greater than 4 seconds, enc pt to wiggle fingers - reports pain yet easily falls asleep while this rn is at bedside charting, call light in reach - enc. fluids and pudding and clear ensure on bedside table, pt skin is rubalcava, cool and dusky - pt requests no blanket when rn attempts to cover him. pulses on both radials are poor and difficult to find with doppler. pt left resting with reg resp, eyes closed and call light.
--- NOTE | 2022-12-27 18:20 | NUR ---
pt asked charge preparation technician kathy and kennel supervisor roque to observe pt, all extremities cool to touch - and dusky skin throughout - roque reports improve since before surgery. r arm drsg with old drainage dependent noted from faciotomy, elevated on pillow and table, swelling noted - pt wiggles fingers. reports he is always cold. 25 ml out in last hour - iv 200 ml hr, face and eyes look a bit jaundice - pt reports hx hep c. call light in reach - pt falls asleep while rn charts.
--- NOTE | 2022-12-27 19:30 | NUR ---
PT ASSESSED AND FOUND TO BE LAYING IN HOSPITAL BED A&O x 4 WITH A GCS OF 15. PT C/O 10/10 PAIN TO HIS R. UPPER EXTREMITY. PT'S RESPIRATIONS ARE NON-LABORED. LS COARSE WITH SOME DIM EXPIRATORY WHEEZES NOTED IN BILATERAL UPPER SIFUENTES. PT IS COOL TO TOUCH, AND MOTTLED ON ALL FOUR EXTREMITIES. PT WITH DELAYED CAP REVILL X 4, HOWEVER, SENSATION REMAINS INTACT X 4. UNABLE TO PAPATE A R. RADIAL PULSE. UNABLE TO DOPPLER R. RAD PULSE. MADE AWARE DURING DAY SHIFT AND TO RETURN TONIGHT FOR A DRESSING CHANGE AND REASSESSMENT. PT WITH SENSATION IN R. HAND AND MINIMAL MOVEMENT. PT C/O NAUSEA. PRN PAIN AND ANTIEMETIC TO ADMINISTERED. SAFETY CHECK PERFORMED, AND ALARM LIMITS SET. BED ALARM TURNED ON AND NURSE CALL LIGHT PLACED AT PT'S SIDE. UO NOTED TO BE DIM. 30 CC OF STERILE WATER FLUSHED WITH ONLY 30 CC RETURN. MURPHY CATH CARE PERFORMED.
--- NOTE | 2022-12-27 21:00 | NUR ---
ATTEMPTED TO CALL DR. SHIN REGARDING LOSS OF PERFUSION IN EXTREMITY, REDUCED U/O AND COLD, MOTTLED SKIN WITH TEMP OF 94 AXILLARY. ME. SURGE ALSO TRYING TO GET AHOLD OF HIM. NO ANSWER ON CELL PHONE. SPOUSE ANSWERED HOME PHONE AND REPORTED HE IS AT THE HOSPITAL.
--- NOTE | 2022-12-27 23:00 | NUR ---
PT WITH NOTED HYPOTENSION. BP CHECKED MANUTHALIA WITH 74/40 NOTED. AUTOMATED BP SET TO Q 5 AND MD CALLED TO BEDSIDE. NEW ORDERS OBTAINED.
[2022-12-28] VITALS (103 sets, daily range): BP systolic 38–164; BP diastolic 16–146
--- NOTE | 2022-12-28 00:15 | NUR ---
PT CONTINUES TO HAVE LABILE BPS, HR REMAINS ST AT 105. MONITOR SET TO ONGOING BPS AT ONSET OF HYPOTENSION. PT REMAINS IN TRENDELENBERG POSITION. NO UO NOTED. PT WITH NO CHANGES IN NEURO STATUS. DR. SHIN AND DR. JERONIMO AWARE. PLAN: TRANSFER PT TO HIGHER LEVEL OF CARE. THIS RN REMAINS AT BEDSIDE WITH PT.
--- NOTE | 2022-12-28 00:35 | NUR ---
INTRA-ABDOMINAL PRESSURE: 10, DR. SHIN AWARE
--- NOTE | 2022-12-28 01:00 | NUR ---
PT WITH LABILE BPS. CTA OF ABD ORDERED. DR. SHIN CONSULTED REGARDING CONCERN FOR HTN, ELEVATED CREATNINE AND CONCERN FOR HEMODYNAMIC INSTABILLITY. NO NEW ORDERS OBTAINED. PT PACKEGED AND BEING TRANSFERRED TO CT. HOUSE SUP. AWARE OF PTS CONDITION.
--- NOTE | 2022-12-28 01:30 | NUR ---
CODE SEPSIS CALLED. DR. JERONIMO, DR. SHIN AND MUSTAPHA SUP. AWARE. PT RETURN FROM CT WITHOUT ACCIDENT.
--- NOTE | 2022-12-28 02:10 | NUR ---
UNABLE TO ASCERTAIN TWO SETS OF BC D/T INABILLITY TO ACCESS VASCULAR STATUS. IV ABX STARTED
--- NOTE | 2022-12-28 02:38 | NUR ---
LAB CALLED WITH CRITICAL LAB OF LACTIC ACID OF 9.2. CURRENT PRIMARY RN ELLA Gordon NOTIFIED.
--- NOTE | 2022-12-28 03:06 | NUR ---
RAPID RESPONSE CALLED AT 0300. PT INTUBATED AT 0307.
--- NOTE | 2022-12-28 03:08 | NUR ---
ETT CONFIRMED WITH COLORMETRIC DEVICE, EQUAL BS, AND CONDENSATION IN THE ETT. ETT SECURED AT 24 AT TEETH
--- NOTE | 2022-12-28 05:43 | NUR ---
RN REPORT GIVEN TO ANASTHUMZAIA AND SENIOR CLERK. PT TAKEN TO OR BY OR TEAM
--- NOTE | 2022-12-28 07:50 | NUR ---
PT WITH SEVERE CLINICAL DETERIORATION THROUGHOUT THE NIGHT. PT IS NOW INTUBATED, AC/VC WITH A PEEP OF 5 AND 40 % FIO2. ETT SECURED AT [address] OGT IN PL[address] CONNECTED TO LIS WITH 1200 CC OF GREEN GASTRIC CONTENTS OUT. TRIPLE LUMIN CENTRAL LINE PLACED AND CONFIMED BY X-RAY. PT HAS BEEN EXPERIENCING TACHYCARDIA WITH HYPOTENSION. PT REMAINS MOTTLED THROUGHOUT WITH NO PERIPHRIAL PULSES NOTED UPON PALPATION OR/ DOPPLER. DUPLEX US PERFORMED ON BILATERAL UPPER EXTREMITIES AND READ BY DR. SHIN WHILE AT BESIDE. PT WITH CORE TEMPS OF 97. DESPITE PT'S HEMODYNAMIC INSTABILITY, PT TRANSFERRED TO CT FOR CTA OF CHEST AND ABD.. REQUESTED ADDITIONAL IV FLUIDS AND OR VASOPRESSOR SUPPORT BUT NO NEW ORDERS OBTAINED. LABS: LACTATE 9.2, NO NEW FLUIDS ORDERED, ADDITIONAL ABX ADDED. CREAT. 2.51, PT CONTINUES TO EXPERIENCE DIMINISHED UO. MD CONTINUES TO ORDER FUROSEMIDE, HOWEVER, DUE TO LABILE BP, MEDICATION HELD. ABG PH 6.9, CO2 58, O2 184 AND HCO3 12.3 - BICARB GTT CURRENTLY IN[place] [address] AND PLT COUNT DROP TO 57. MDS ATTEMPTED MULTIPLE ART LINE ATTEMPTS, HOWEVER, NOT SUCCESSFUL.
--- NOTE | 2022-12-28 09:05 | NUR ---
CARE OF PATIENT RESUMED AT 0730 AFTER REPORT FROM OENOLOGIST. PATIENT WAS IN OR AND RETURNED AT 0815. UPON ARRIVAL TO ROOM, VERBAL REPORT REC'D FROM NIGHT GEOSCIENTIST X2 AND OR CREW. PER REPORT, PATIENT HAD NOT HAD PALPABLE PULSES DURING PROCEDURE, BUT HAD BEEN ON VAPOPRESSORS ENTIRE OR CASE. PT ENTERS CCU ROOM ON 30 MCG/MIN OF LEVOPHED, VASOPRESSIN AT 0.1 UNITS/MIN, LR AT 50 ML/HR, HEPARIN GTT AT 800 UNITS/HR. PT IN A NSR UPON ENTRY TO ROOM, BUT BLOOD PRESSURES ARE UNMEASUREABLE PER MONITOR. PATIENT'S COLOR IN FACE IS BLUEISH/[place]. LEFT PUPIL IS 4-5, NON REACTIVE, RIGHT PUPIL IS 2-3, NON REACTIVE. DR. PAYAN CALLED TO BEDSIDE IMMEDIATELY. RAPID REPONSE CALLED AT 0818. DR. PAYAN LISTENS TO PATIENT'S CHEST AND NO HEART BEAT DETECTED AND WILLIS DEMPSEY CALLED AT 0820 WITH CHEST COMPRESSIONS STARTED IMMEDIATELY. SEE CODE BLUE CHARTING.
--- NOTE | 2022-12-28 09:10 | NUR ---
DURING CODE, NOTED THAT PATIENT'S RIGHT ARM (SURGICAL ARM) WAS OOZING BRIGHT RED BLOOD. MANUAL PRESSURE BEING APPLIED BY RNs. DR. SHIN AT BEDSIDE DURING CODE. DR. SHIN NOW BEDSIDE EXPLORATORY OF RIGHT ARM WITH OR STAFF. PT CURRENTLY ON 50 MCG/MIN OF LEVOPHED, VASOPRESSIN REMAINS ON AT 0.1 UNITS/MIN. PT HAS REC'D 3 L OF LR INFUSED QUICKLY. ROSC WAS OBTAINED AT 0831. PT CONTINUES TO HAVE STRONG DOPPLER FEMORAL AND PALPABLE CAROTIDS. PT HAS 7.5 ETT, VT 490, PEEP 5, FI02 100%. CRITICAL LAB VALUES THAT HAVE BEEN REC'D THUS FAR IS LACTIC ACID 10.9, PLT 39, WBC 48.5. DR. SHIN REMAINS IN ROOM AND WILL BE NOTIFIED OF THESE.
--- NOTE | 2022-12-28 10:20 | NUR ---
Pt is intubated and has returned from surgery. No plan for CM today.
--- NOTE | 2022-12-28 11:13 | NUR ---
PATIENT REMAINS VERY CRITICAL AND 2-3 NURSES PLUS RT IN ROOM ALMOST CONTINUOUSLY. PT NOW ON NOREPI AT 90 MCG/MIN, EPINEPHRINE AT 5 MCG/MIN, VASOPRESSIN AT 0.1 UNITS/MIN, LR LITER #5 GOING AT 999 ML/HR, HEPARIN AT 7.84 UNITS/KG/HR = 800 UNITS/HR. LEFT PUPIL REMAINS DILATED AND NON REACTIVE TO LIGHT. RIGHT PUPIL MINIMALLY REACTIVE IF ANY AT ALL. OG NOW DRAINING TO INTERMITTENT SUCTION. AM MEDS BEING GIVEN WITH THE LASIX BEING HELD. DOPPER ON RIGHT FEMORAL PULSE REMAINS CONTINUOUSLY.
--- NOTE | 2022-12-28 11:53 | NUR ---
DR. PAYAN BACK AT BEDSIDE. NOREPI IS NOW AT 90 MCG/MIN, EPI AT 5 MCG/MIN, VASOPRESSIN AT 0.1 UNITS/MIN, HEPARIN AT 800 UNITS/HR, AND LR AT 200 ML/HR. LABS TO BE DRAWN Q6.
--- NOTE | 2022-12-28 12:01 | NUR ---
LABS DRAWN FROM [facility] AND SENT.
--- NOTE | 2022-12-28 13:07 | NUR ---
PATIENT'S FAMILY FRIEND HAS ARRIVED WITH ANOTHER PERSON. UPDATE GIVEN. CRITICAL LABS REC'D OF LACTIC ACID OF 10.9, WBC OF 53.9, CA 6.2. CREATININE IS UP TO 3.8. VBG IS 6.936, 55.5 C02, 11.8 HC03. RT IN ROOM AND MAKING TITRATIONS TO VENT SETTINGS.
--- NOTE | 2022-12-28 13:15 | NUR ---
DR. PAYAN BACK IN ROOM TO SEE PATIENT AND GIVE UPDATE TO FAMILY THAT IS IN ROOM. LEVOPHED CURRENTLY AT 75 MCG/MIN, EPI AT 5 MCG/MIN. RT MAKING CHANGES TO VENT. DOPPLER FEMORAL STILL FINDABLE. CONTINUING TO CHECK THESE Q5-10 MINUTES. PT'S RIGTH PUPIL IS NONREACTIVE AT THIS TIME WELL NOW, IN ADDITION TO THE LEFT PUPIL THAT HAS BEEN ON REACTIVE SINCE RETURNING FROM OR.
--- NOTE | 2022-12-28 13:26 | NUR ---
CALLED AND GIVEN AN UPDATE ON PT'S CRITICAL LAB VALUES OF LACTIC ACID OF 10.9, WBCs OF 53.9, CALCIUM OF 6.2 AND VBG RESULTS. NOREPI REMAINS AT 75 MCG/MIN, EPI AT 5, VASOPRESSIN AT 0.1 UNITS/HR, SODIUM BICARB AT 150 ML/HR, LR AT 200 ML/HR. NO FURTHER ORDERS AT THIS TIME. DR. SHIN TO COME SEE FAMILY WHEN HE IS ABLE.
--- NOTE | 2022-12-28 13:45 | NUR ---
DR. SHIN IN ROOM TO SPEAK WITH PTS FAMILY AND FRIENDS. PER DR. SHIN, HEPARIN DRIP WAS DISCONTINUED BY RADHA LAYNE.
--- NOTE | 2022-12-28 15:40 | NUR ---
CVP OBTAINED AND NOTED TO BE 14-15 AT THIS TIME. PT'S DAUGHTER GURPREET HAS ARRIVED AND IS NOW AT BEDSIDE.
--- NOTE | 2022-12-28 16:01 | NUR ---
LABS SENT FOR 1600 DRAW - PULLED FROM [facility] AFTER PATIENT'S HEAD TURNED TO THE RIGHT. VENT ALARMING LOW VT. RT NOW IN ROOM. NOREPI AT 70 MCG/MIN, EPI AT 5 MCG/MIN, VASOPRESSIN AT 0.1 UNITS/HR, SODIUM BICARB AT 150 ML/HR, LR AT 200 ML/HR. CONTINUE TO MONITOR.
--- NOTE | 2022-12-28 16:54 | NUR ---
DR. PAYAN AND DR. SHIN CALLED AND UPDATED WITH CRITICAL VALUES FOLLOWS: WBC 41.7, PLATELETS 43, LACTIC ACID 12.4, CALCIUM 6.0. H/H REPORTED DOWN TO 8.8/28.8, VBG RESULTS OF PH 6.86, PC02 OF 69.5, P02 65, HC03 OF 12.6. NOTIFIED BOTH PHYSICIANS THAT RELIABLE SP02 HAS BEEN UNABLE TO BE OBTAINED SINCE 1244, BUT 02 CONTENT ON VBG WAS 88. PATIENT REMAINS ANURIC, WITH APPETIZER PACKER OF 3.85 AT THIS TIME. PT REMAINS WITH DILATED, FIXED PUPILS AND HAS REMAINED UNRESPONSIVE. DR. SHIN STATES HE WILL COME BY TO SEE PATIENT AGAIN THIS EVENING. ASKED DR. PAYAN ABOUT GIVING ADDITIONAL MAG TO HELP WITH BRONCHOSPASMS. RECHECING MAG LEVEL BEFORE ORDERING MORE MAG TO BE GIVEN.
--- NOTE | 2022-12-28 17:16 | NUR ---
DR. SHIN IN ROOM TO SEE PATIENT AT THIS TIME AND SPEAKING WITH DAUGHTER IN HIS ROOM.
--- NOTE | 2022-12-28 18:48 | NUR ---
PATIENT IS NOW A DNR. PT'S CURRENT MEDICATIONS INFUSING ARE NOREPI AT 35 MCG/MIN, EPINEPHRINE AT 4 MCG/MIN, SODIUM BICARB AT 150 ML/HR, LR AT 200 ML/HR, VASPOPRESSIN AT 0.09 UNITS/MIN. PT NOW HAS MOTTLING THROUGHOUT ENTIRE BODY, THROUGHOUT SHOULDERS, UP TO FACE. PT'S RIGHT ARM REMAINS WRAPPED PER DR. SHIN'S WRAP EARLIER WITH KERLEX, CAITLYN WRAPS AND ABDs. PT'S RIGHT ARM ELEVATED ON PILLOW. SCDs ON. REPORT TO BE GIVEN TO PUMPER HAND.
--- NOTE | 2022-12-28 19:49 | NUR ---
BEDSIDE RN REPORT RECEIVED. GTTS VERIFIED WITH OUTGOING NURSING STAFF. PUPILS FIXED AND DILATED BILATERALLY. PT WITH NO SEDATION. PT DOES NOT VISUALLY TRACK, NO RESPONSE TO VISUAL THREAT. PT WITH NO COUGH OR GAG REFLEX. PT DOES NOT RESPOND TO PAINFUL STIMULI. VENT/ SAFETY CHECK PERFORMED. ETT PLACEMENT CONFIRMED AND ETT SECURED. PERIPHERAL PULSES UNOBTAINABLE. R. FEMORAL PULSE OBTAINED WITH DOPPER.L. FEMORAL PULSE UNOBTAINABLE VIA PALPATION OR DOPPLER. LS COARSE THOUGHOUT. HS DISTANT.
--- NOTE | 2022-12-28 20:15 | NUR ---
BILAT FEMORAL PULSES HEARED WITH USE OF DOPPLER.
--- NOTE | 2022-12-28 20:30 | NUR ---
BP UNOBTAINABLE. FEMORAL PULSES STILL HEARED WITH USE OF DOPPLER. PRESSORS INCREASED
--- NOTE | 2022-12-28 20:35 | NUR ---
LAB CALLED WITH CRITICAL LACTATE OF 14.5 AND A WBC OF 30.5
--- NOTE | 2022-12-28 20:40 | NUR ---
BP UNOBTAINABLE - NOREPI, VASO AND EPI GTT MAXED. FEMORAL PULSES STILL HEARED WITH DOPPLER
--- NOTE | 2022-12-28 20:42 | NUR ---
GURPREET, PTS DAUGHTER, CALLED AND INFORMED OF PTS WORSENING CONDITION. DAUGHTER ADVISES SHE WILL COME TO HOSPITAL. HOUSE SUP. CALLED, INFORMED AND CHAPLAN ASKED TO BE AT BEDSIDE FOR FAMILY SUPPORT . DR. JERONIMO AND DR. SHIN NOTIFIED OF PTS CLINICAL DETERIORATION.
--- NOTE | 2022-12-28 20:48 | NUR ---
PT NOTED TO BE IN A IDEOVENTRICULAR RHYTHM PROGRESSING TO ASYSTOLE. BP IS UNOBTAINABLE. PT WITH NO PALPABLE PULSES AND NO PULSES HEARED WITH DOPPLER. HEART SOUNDS AUSCULTATED AND FOUND TO BE ABSCENT. ABSCENT HEART SOUNDS CONFIRMED BY TWO RNS. HOUSE SUP., DR. SHIN AND DR. JERONIMO NOTIFIED. DR. JERONIMO TO BEDSIDE. RHTHM STRIPS PRINTED AND FILED IN CHART.
--- NOTE | 2022-12-28 21:47 | NUR ---
SECURITY COMPLIANCE SPECIALIST WILL NOT BE TAKING RESPONSIBILLITY OF BODY. POST MORTOM CARE PERFORMED.
--- NOTE | 2022-12-28 23:05 | NUR ---
BODY PLACED IN BODY BAG AND TRANSFERRED FROM HOSPITAL BED TO [facility]. BODY RELEASED TO MORTUARY.
--- NOTE | 2022-12-29 20:48 | EKG ---
[facility] [address] [facility] [place] [address] Signed Sinus tachycardia Low voltage QRS Right bundle branch block Abnormal ECG When compared with ECG of 10-JUN-2021 10:53, No significant change was found Confirmed by CAMILA MCMILLAN MD ([id number]) on 12/29/2022 8:47:53 PM Electronically Signed By: CAMILA MCMILLAN MD 12/29/222047 PATIENT NAME: JENNIFER MALDONADO Electrocardiogram DATE OF : 56 PHYSICIAN: CAMILA MCMILLAN MD REPORT #: [id number] REPORT IS CONFIDENTIAL AND NOT TO BE RELEASED WITHOUT AUTHORIZATION
--- NOTE | 2022-12-31 19:01 | OR ---
[facility] [address] [place], [place] [address] Signed DATE OF OPERATION: 12/28/2022 SURGEON: Shakir Shin MD TIME: 0930 hours. PROBLEM: Pulseless electronic activity with CPR and subsequent wound bleeding. POSTOPERATIVE DIAGNOSES: 1. Pulseless electronic activity with CPR and subsequent wound bleeding. 2. Arterial bleeding at arterial anastomosis site. PROCEDURE: Repair of arterial anastomotic disruption (bedside). HISTORY OF PRESENT ILLNESS: This 61-year-old white man underwent exploration of his right arm through a recently performed upper extremity fasciotomy. Protestant of arterial blood flow was undertaken with Ezio catheter approach. He required a spatulated end-to-end arteriotomy closure with 6-0 vascular Prolene suture. He returned to the Intensive Care Unit where he was noted to have pulseless electronic activity, undergoing a major resuscitative effort, which included CPR and numerous medications including epinephrine, bicarbonate and so on. He was noted to have oozing of blood in the dressing in the region of the distal medial upper arm. Pressure was applied to the area. Examination showed good arterial flow proximal and distal to the arteriotomy closure, but stream like arterial bleeding for which control was needed. This was accomplished with interrupted 6-0 Prolene suture. DESCRIPTION OF PROCEDURE: At the bedside, the dressing was taken down and with assistance of an operating room nurse or two the area was carefully examined in the depths of the wound and medial to the biceps muscle. A distinct arteriotomy site for leakage was noted. This was closed with a 6-0 Prolene suture. Two such sutures were applied for good hemostasis. There was no sign of other problem and good pulsation was noted proximal and distal to the arteriotomy repair. Rolando was applied to the site and the soft tissue was closed over all areas of exposed artery so as to avoid desiccation and further problems. A moist saline Kerlix was applied to the site after additional closure of subcutaneous tissue in the appropriate areas with 2-0 Vicryl. ABD pads were applied, followed by Jaime hidalgo Electronically Signed By: SHAKIR SHIN MD 12/31/22 1901 PATIENT NAME: JENNIFER MALDONADO OPERATIVE REPORT DATE OF : 56 REPORT #: [id number] PHYSICIAN: SHAKIR SHIN MD PCP: ABDOULAYE OLGUIN MD REPORT IS CONFIDENTIAL AND NOT TO BE RELEASED WITHOUT AUTHORIZATION [address] [place], [place] [address] Signed and ultimately Addy wraps x2. There appeared to be good hemostasis. Blood loss was approximately 100 mL during the course of his intervention. MD ALISON Sotomayor/MAYUR /[id number] Copies: ~ Electronically Signed By: SHAKIR SHNI MD 12/31/22 190 PATIENT NAME: JENNIFER MALDONADO OPERATIVE REPORT DATE OF : 56 REPORT #: [id number] PHYSICIAN: SHAKIR SHIN MD PCP: ABDOULAYE OLGUIN MD REPORT IS CONFIDENTIAL AND NOT TO BE RELEASED WITHOUT AUTHORIZATION
--- NOTE | 2022-12-31 19:01 | OR ---
[facility] [address] [place], [place] [address] Signed DATE OF OPERATION: 12/28/2022 SURGEON: Shakir Shin MD PREOPERATIVE DIAGNOSES: 1. Recent traumatic fall and resultant right upper extremity severe compartment syndrome requiring extensive right upper extremity fasciotomy including medial upper arm, forearm and dorsal forearm. 2. Onset of renal failure, severe abdominal pain, progressive hypotensive shock. 3. New onset pulselessness right upper extremity confirmed by vascular ultrasound. POSTOPERATIVE DIAGNOSES: 1. Recent traumatic fall and resultant right upper extremity severe compartment syndrome requiring extensive right upper extremity fasciotomy including medial upper arm, forearm and dorsal forearm. 2. Onset of renal failure, severe abdominal pain, progressive hypotensive shock. 3. New onset pulselessness right upper extremity confirmed by vascular ultrasound. 4. No flow in brachial artery. PROCEDURES: 1. Emergent exploration of right arm. 2. Isolation of right brachial artery with arteriotomy and Ezio catheter alevism of blood flow. 3. Spatulated end to end arterial anastomosis, distal brachial artery. RETOUCHER PHOTOENGRAVING: Nurse (Denia Bradley RN) ANESTHESIA: General endotracheal, Primo Melgoza CRNA and Shakir Mendoza CRNA. INDICATION: This 61-year-old white man presented to the emergency room on December 26, 2022 with severe and unrelenting pain of the right upper extremity. He is found to have extremely tense forearm and upper arm components with bullous skin changes of the elbow area. He had said that he had fallen down the day before. He used a the elbow but upon awakening in the morning, had severe and unrelenting pain of his right upper extremity including above and below the elbow. Clinical examination was consistent with compartment syndrome, presumably related to the fall. He had undergone imaging in the emergency room by Dr. Varner, which included a plain x-ray showing no sign of fracture Electronically Signed By: SHAKIR SHIN MD 12/31/221900 PATIENT NAME: JENNIFER MALDONADO OPERATIVE REPORT DATE OF : 56 REPORT #: [id number] PHYSICIAN: SHAKIR SHIN MD PCP: ABDOULAYE OLGUIN MD REPORT IS CONFIDENTIAL AND NOT TO BE RELEASED WITHOUT AUTHORIZATION [facility] [address] [place], [place] [address] Signed or dislocation and a CT scan of the right upper extremity showing no evidence of necrotizing soft tissue infection particularly. He was emergently taken to the operating room on December 26, where he underwent compartment pressure evaluation confirming a deltoid pressure of 17 mmHg, in the forearm 66 mmHg and biceps 40 mmHg. He underwent an extensive anterior volar fasciotomy including carpal tunnel release extending through the forearm to the medial right bicipital groove. He additionally had a posterior forearm fasciotomy performed. A yellow vessel loop dynamic skin closure was used as there was significant swelling. At the time of initial operation, a Doppler ultrasound confirmed pulsatile flow within the brachial artery which was easily identified. Postoperatively, he had marked improvement of his significant pain, but still had increasing creatine kinase as well as myoglobin and progressive increase in his white count. Late in the evening last night he was having complaints of abdominal pain and had a violaceous appearance generally speaking overall. Though there was swelling of his right arm, it appeared much improved compared to previously. He is able to move it and palpation did not reveal much tenderness. He had mottling of his distal extremities and a creatinine of 2.51, a white count of 62.1, platelet count now decreased to 37,000 with severe abdominal pain. After conference with radiologist and vascular consultation at [facility], a CT angiogram was obtained of the aorta to assess for thrombosis or dissection. The aortogram was negative for any such finding and good preservation of arteries was noted. Stomach was decompressed of a fair amount of gastric juices. As the angiogram did not particularly incorporate the upper extremities for fear of excessive contrast load, a vascular ultrasound was performed of both left and right upper extremities. Only minimal flow was noted in the brachial artery on the left side and no flow in the brachial artery on the right side. On that basis, heparinization was initiated at 800 units/hour and he was taken to operation at this time to assess for vascular occlusion that appears to have occurred since fasciotomy. The patient required intubation due to acidosis and episodic hypotension. Only administrative consent could be obtained at this time as the patient has no family or other relatives nearby and lists no person to call in case of emergency. It is well acknowledge the severe nature of this problem, which may ultimately result in limb loss or even . Under these circumstances, there is little opportunity for transfer elsewhere and operation is indicated. FINDINGS: Pressor agents were used during the course of the procedure. Extensive efforts to provide for a femoral and left arm radial art line were unsuccessful. The fasciotomy incision certainly provided ready access to the compartments and the brachial artery was easily identified and found to have no flow in it. It was isolated Electronically Signed By: SHAKIR SHIN MD 12/31/22 1901 PATIENT NAME: JENNIFER MALDONADO OPERATIVE REPORT DATE OF : 56 REPORT #: [id number] PHYSICIAN: SHAKIR SHIN MD PCP: ABDOULAYE OLGUIN MD REPORT IS CONFIDENTIAL AND NOT TO BE RELEASED WITHOUT AUTHORIZATION [facility] [address] [place], [place] [address] Signed and arteriotomy made and Ezio embolectomy catheter was passed proximally and distally restoring arterial inflow. There is no actual thrombus within the proximal or distal arteries it is noted. A spatulated end-to-end arterial anastomosis was required as the initial arteriotomy closure was somewhat compromising to blood flow distally. The patient left the operating room in critical condition to be sure. DESCRIPTION OF PROCEDURE: The patient was brought to the operating room with much assistance including respiratory therapist and others. He is placed expediently on the operating room table and the dressings removed from the right upper extremity. Yellow vessel loops which were providing dynamic stabilization of the skin were incised and the duy left in place. The arm was prepared with a Betadine based solution and draped sterilely. Preoperative antibiotic meropenem had been initiated. The extensive dissection for fasciotomy already access to the brachial artery. It was dissected free without difficulty isolated with vessel loops. It was incised longitudinally with an 11 blade and extended with Sanchez scissors. A 1.5 mL Ezio embolectomy balloon was passed proximally as far as possible inflated and gently withdrawn. This allowed for restore of pulsatile arterial blood which was somewhat darker than would generally be expected. The proximal artery was secured with a vessel loop. Distal arterial examination was undertaken similarly, though given the size of the balloon, a smaller 0.2 mL balloon was used. This delivered no thrombus either. This dissection was carried more distally to forearm brachial branches and additionally applied. Closure of the arteriotomy after ascertaining proximal inflow was undertaken with a running 6-0 Prolene vascular suture. This allowed for sluggish return of flow to the forearm based on Doppler signal. On that basis, an arteriotomy was made distal to the initial arteriotomy closure, which did show flow but not as vigorous as hoped for. Embolectomy catheter was passed proximally and distally once again restoring reasonable arterial flow. That arteriotomy was closed with a running 6-0 Prolene without luminal compromise. Re-examination showed flow in the proximal portion, but the initial arteriotomy what appears to be a bit of a hold up for the flow. A transverse closure of the arteriotomy was impractical given the small size of the [place] brachial artery. On that basis, the proximal and distal ends of the artery were mobilized from the surrounding soft tissue and cut into spatulated configuration and secured in the speculated way with running 6-0 Prolene. Re-establishment of the flow showed reasonable flow by Doppler distally and proximally to the arteriotomy closure. Irrigation was undertaken. The artery was covered with [place] muscle and subcutaneous tissue so as to avoid desiccation of the well exposed artery above and below the elbow. The yellow vessel loops were reestablished to provide dynamic attention on the wound. Wet Kerlix was applied to the open areas of the wound as was a Kerlix wrap and ultimately an Addy Electronically Signed By: SHAKIR SHIN MD 12/31/22 190 PATIENT NAME: JENNIFER MALDONADO OPERATIVE REPORT DATE OF : 56 REPORT #: [id number] PHYSICIAN: SHAKIR SHIN MD PCP: ABDOULAYE OLGUIN MD REPORT IS CONFIDENTIAL AND NOT TO BE RELEASED WITHOUT AUTHORIZATION [address] [address] Signed wrap. The patient was transferred to the Intensive Care Unit in a critical condition. MD ALISON Sotomayor/MODL /[id number] Copies: ~ Electronically Signed By: SHAKIR SHIN MD 12/31/22 1901 PATIENT NAME: ERICAJENNIFERKELSEY CLARK OPERATIVE REPORT DATE OF : 56 REPORT #: [id number] PHYSICIAN: SHAKIR SHIN MD PCP: ABDOULAYE LOGUIN MD REPORT IS CONFIDENTIAL AND NOT TO BE RELEASED WITHOUT AUTHORIZATION
== END 2022-12-28 20:48 | DRG 853 ==
LOC: ED 07:45 → DS 07:47 → MS 13:56 → CCU 13:56
PROVIDERS: ADMIT Surgery; ATTEND Family Medicine
PROC: 0KN70ZZ Release Right Upper Arm Muscle, Open Approach (ICD-10-PCS; 2022-12-26)
PROC: 3E043XZ Introduction of Vasopressor into Central Vein, Percutaneous Approach (ICD-10-PCS; 2022-12-26)
PROC: 03773ZZ Dilation of Right Brachial Artery, Percutaneous Approach (ICD-10-PCS; 2022-12-26)
PROC: 05HN33Z Insertion of Infusion Device into Left Internal Jugular Vein, Percutaneous Approach (ICD-10-PCS; 2022-12-26)
PROC: 3E03329 Introduction of Other Anti-infective into Peripheral Vein, Percutaneous Approach (ICD-10-PCS; principal; 2022-12-26 14:00)
PROC: 0T9B70Z Drainage of Bladder with Drainage Device, Via Natural or Artificial Opening (ICD-10-PCS; 2022-12-27)
PROC: B544ZZA Ultrasonography of Left Jugular Veins, Guidance (ICD-10-PCS; 2022-12-28)
PROC: 0BH18EZ Insertion of Endotracheal Airway into Trachea, Via Natural or Artificial Opening Endoscopic (ICD-10-PCS; 2022-12-28)
PROC: 5A1935Z Respiratory Ventilation, Less than 24 Consecutive Hours (ICD-10-PCS; 2022-12-28)
PROC: 0KNC0ZZ Release Right Hand Muscle, Open Approach (ICD-10-PCS; 2022-12-28)
PROC: 0KN Muscles, Release (ICD-10-PCS; 2022-12-28)
PROC: 5A12012 Performance of Cardiac Output, Single, Manual (ICD-10-PCS; 2022-12-28)
DX: A41.9 Sepsis, unspecified organism (principal); J96.01 Acute respiratory failure with hypoxia; T79.A11A Traumatic compartment syndrome of right upper extremity, initial encounter; J44.1 Chronic obstructive pulmonary disease with (acute) exacerbation; N17.9 Acute kidney failure, unspecified; M62.82 Rhabdomyolysis; E87.20 Acidosis, unspecified; Z66 Do not resuscitate; R65.20 Severe sepsis without septic shock; M54.9 Dorsalgia, unspecified; Z20.822 Contact with and (suspected) exposure to COVID-19; D69.6 Thrombocytopenia, unspecified; G89.29 Other chronic pain; G25.81 Restless legs syndrome; K21.9 Gastro-esophageal reflux disease without esophagitis; I95.9 Hypotension, unspecified; F17.200 Nicotine dependence, unspecified, uncomplicated; Z88.6 Allergy status to analgesic agent; Z88.1 Allergy status to other antibiotic agents; I25.2 Old myocardial infarction; Z90.49 Acquired absence of other specified parts of digestive tract; Z95.5 Presence of coronary angioplasty implant and graft; Z98.890 Other specified postprocedural states; Z79.82 Long term (current) use of aspirin; Z79.890 Hormone replacement therapy; Z79.899 Other long term (current) drug therapy; W18.39XA Other fall on same level, initial encounter
CPT/HCPCS: 01710; 31500; 36415; 36600; 71045; 71275; 73080; 73200; 74174; 80048; 80053; 82553; 82803; 83605; 83735; 83874; 84484; 85025; 85384; 85610; 85730; 86140; 86850; 86900; 86901; 87040; 92950; 93005; 93010; 93930; 94003; 94640; 94644; 96365; 96368; 96375; 96376; 99285-25; A9270; C1757; J0171; J0330; J0690; J1170; J1644; J1650; J1720; J1790; J1940; J2001; J2185; J2250; J2270; J2405; J2543; J2704; J2930; J3010; J3370; J3475; J3490; J7030; J7060; J7070; J7121; P9035; Q9967; U0002